=== PATIENT | female | born 1955 | race Caucasian/White ===

== ENCOUNTER → 2020-05-04 10:35 | Outpatient (BNVA) | payer OTHER, SELFPAY | PROVIDERS: PCP Physical Medicine & Rehabilitation; Visit Provider Nurse Practitioner Family | DX: M47.816 Spondylosis without myelopathy or radiculopathy, lumbar region (principal); M51.36 Other intervertebral disc degeneration, lumbar region | CPT/HCPCS: 99202 ==

== ENCOUNTER 2020-05-27 11:29 | Day surgery (SDC) | payer OTHER, SELFPAY ==
[2020-05-26 13:42] VITALS: BMI 32.2
--- NOTE | 2020-05-26 14:05 | HO.ANESPROP2 ---
HPI - Anesthesia Eval Consult details Narrative: 65yo F for Left Medial Branch Block Chronic opioids PMFSH Active Problems Active Problems: All Active Problems (Updated 05/26/20 @ 13:40 by Perri Frankel, RN) Spondylosis of lumbar region without myelopathy or radiculopathy (Acute) DDD (degenerative disc disease), lumbar (Acute) Past Medical History Medical History (Updated 05/26/20 @ 13:40 by Perri Frankel, RN) Asthma COPD (chronic obstructive pulmonary disease) Elevated cholesterol Hepatitis HTN (hypertension) Schizoaffective disorder Smoker Thyroid disease Surgical History Surgical History (Updated 05/26/20 @ 13:41 by Perri Frankel, RN) History of hip surgery Social History Social History (Updated 05/26/20 @ 13:42 by Perri Frankel, RN) Smoking Status: Current every day smoker Tobacco Type: Cigarette Packs Per Day: 1 Cigarettes Per Day: 20.0 Advance Directives Date on File: 05/27/20 Meds Allergies Allergy/AdvReac Type Severity Reaction Status Date / Time succinylcholine AdvReac Severe choline Verified 06/03/20 13:37 estrace deficiency cefaclor [From Ceclor] AdvReac Intermediate hives Verified 06/03/20 13:37 Penicillins AdvReac Intermediate hives Verified 06/03/20 13:37 Sulfa (Sulfonamide AdvReac Intermediate hives Verified 06/03/20 13:37 Antibiotics) Home Medications Medication Instructions Recorded Confirmed Last Taken Type atorvastatin 40 mg tablet 40 mg PO DAILY 05/04/20 06/03/20 Unknown History baclofen 10 mg tablet 10 mg PO QID 05/04/20 06/03/20 Unknown History calcium carbonate 500 mg calcium 500 mg PO DAILY 05/04/20 06/03/20 Unknown History (1,250 mg) tablet cholecalciferol (vitamin D3) 25 25 mcg PO DAILY 05/04/20 06/03/20 Unknown History mcg (1,000 unit) capsule clonazepam 2 mg tablet 2 mg PO TID 05/04/20 06/03/20 Unknown History desvenlafaxine 100 mg 100 mg PO DAILY 05/04/20 06/03/20 Unknown History tablet,extended release 24 hr diclofenac sodium 1 % topical gel 2 g TOPICAL QID 05/04/20 05/04/20 Unknown History diltiazem HCl 240 mg 240 mg PO DAILY 05/04/20 06/03/20 Unknown History capsule,extended release 24 hr ferrous sulfate 325 mg (65 mg 325 mg PO DAILY 05/04/20 06/03/20 Unknown History iron) tablet gabapentin 600 mg tablet 600 mg PO TID 05/04/20 06/03/20 Unknown History levothyroxine 175 mcg capsule 175 mcg PO DAILY 05/04/20 06/03/20 Unknown History loratadine 10 mg capsule 10 mg PO DAILY 05/04/20 06/03/20 Unknown History meclizine 12.5 mg tablet 12.5 mg PO TID 05/04/20 06/03/20 Unknown History meloxicam 15 mg tablet 15 mg PO DAILY 05/04/20 06/03/20 Unknown History mirabegron 25 mg tablet,extended 25 mg PO DAILY 05/04/20 06/03/20 Unknown History release 24 hr multivitamin,tx-minerals 1 cap PO DAILY 05/04/20 06/03/20 Unknown History pantoprazole 40 mg tablet,delayed 40 mg PO DAILY 05/04/20 06/03/20 Unknown History release ropinirole 2 mg tablet 2 mg PO BEDTIME 05/04/20 06/03/20 Unknown History sodium chloride 1 gram tablet 1,000 mg PO DAILY 05/04/20 06/03/20 Unknown History tramadol 50 mg tablet 50 mg PO BID PRN 05/04/20 05/04/20 Unknown History umeclidinium 62.5 mcg/actuation 1 inh INHALATION DAILY 05/04/20 06/03/20 Unknown History blister powder for inhalation zoledronic acid 5 mg/100 mL in IV 05/04/20 06/03/20 Unknown History mannitol 5 %-water intravenous piggybck Exam Exam Date and Time: May 26, 2020 1405 Height,Weight and Vital Signs: Height 5 ft Weight 74.843 kg Assessment and Plan Assessment Anesthesia Assessment: Chart Reviewed
--- NOTE | ~2020-05-27 | FL_ITS ---
EXAMINATION: XR FLUOROSCOPY WITH IMAGES CLINICAL INFORMATION: Medial branch block COMPARISON: None. TECHNIQUE: Fluoroscopy performed by Dr. Hector Ha. Fluoroscopy time: 0.2 minutes DAP: 1.0 mGycm2 Images: 1 FINDINGS: Image demonstrates needle placement adjacent to the left lateral L4 vertebral body. FL/FL guidance in OR IMPRESSION: Fluoroscopic guidance for medial branch block.
[2020-05-27 12:20] VITALS: BP 144/97; PULSE 99; RESP 18; TEMP 36.8; O2SAT 97
[2020-05-27] MEDS: Lactated Ringers 1,000 ML 100 ML IVCONT (12:46)
--- NOTE | 2020-05-27 12:58 | MHC.SHP ---
Pre-Procedural Eval Section A The patient is an INPATIENT: No The History & Physical has been completed within 30 days and I have reviewed it.: No Section B Chief Complaint: spondylosis.disc degeneration Details of Present Illness: as above Relevant Family History (Specify if Yes): No Relevant Social History: None Present Medications: None Medical History: No relevant PMH History of Previous Operations: No relevant previous surgery Allergies: Allergies Allergy/AdvReac Type Severity Reaction Status Date / Time succinylcholine AdvReac Severe choline Verified 05/04/20 11:05 estrace deficiency cefaclor [From Ceclor] AdvReac Intermediate hives Verified 05/04/20 11:04 Penicillins AdvReac Intermediate hives Verified 05/04/20 11:03 Sulfa (Sulfonamide AdvReac Intermediate hives Verified 05/04/20 11:05 Antibiotics) Review of Systems Sugical H&P ROS: Negative: Constitution, Cardiovascular, Respiratory, Neurological, Psychiatric, Hem-Onc, Allergic/Immunologic, Gastrointestinal, Genitourinary, Musculoskeletal, Integumentary, Endocrine and Eyes/Ears/Nose/Throat Exam Surgical H&P Exam: Normal: HEENT, Normal: Heart, Normal: Lungs, Normal: Extremities, Normal: Abdomen, Normal: Skin and Normal: Neurological Plan Diagnosis/Plan: Unchanged I have reviewed the history and physical and performed a pertinent physical examination on my patient. No changes have occurred unless specified.
--- NOTE | 2020-05-27 12:59 | MHC.SHP ---
Pre-Procedural Eval Section B Chief Complaint: spondylosis.disc degeneration Allergies: Allergies Allergy/AdvReac Type Severity Reaction Status Date / Time succinylcholine AdvReac Severe choline Verified 05/04/20 11:05 estrace deficiency cefaclor [From Ceclor] AdvReac Intermediate hives Verified 05/04/20 11:04 Penicillins AdvReac Intermediate hives Verified 05/04/20 11:03 Sulfa (Sulfonamide AdvReac Intermediate hives Verified 05/04/20 11:05 Antibiotics) Plan I have reviewed the history and physical and performed a pertinent physical examination on my patient. No changes have occurred unless specified.
--- NOTE | 2020-05-27 13:46 | PM.OP ---
Brief Operative Note Date of Service: 05/27/20 Pre-op diagnosis: spondylosis lumbar Post-op diagnosis: same Procedure: left MBB l3-l4-dr l5 Surgeon: Hector Ha MD Anesthesia: MAC Estimated blood loss (mL): 3 Condition: stable Disposition: PACU
[2020-05-27 13:50] VITALS: BP 120/70; PULSE 81; RESP 16; TEMP 36.4; O2SAT 98
[2020-05-27 14:05] VITALS: BP 147/86; PULSE 86; RESP 17; TEMP 36.4; O2SAT 99
--- NOTE | 2020-06-01 13:44 | W.PM.OPN ---
Operative Note Operative Note Date of Service: 05/27/20 Narrative: Informed consent was explained to the patient. All questions were explained and answered. The patient was taken inside the operating room where she was positioned prone on the operating table.. The patient was taken inside of the operating room where was positioned prone operating table. Time-out was performed delineating correct site, side, the nature of the procedure, patient's allergy, preoperative antibiotic if needed. All operating room staff was participating in OR time-out procedure. The lower back was prepped with ChloraPrep and draped with sterile towels. Sterilely draped C-arm was brought over the operating field and square picture of, L4-and L5 vertebra and S1 AREA were delineated on the screen. Point of interest were delineated as connection of superior articular process of L4 and L5 vertebra ON THE LEFT with corresponding transverse processes, as well as connection of the sacral alae ON THE LEFT with superior articular process of S1. The projections of the point of interest to the skin were injected with the small amount of local anesthetic lidocaine 2% 1-1.5 cc. After that 22 gauge QP spinal needles were driven to the point of interest in tunnel vision fashion. After needles gently contacted the bone at the point of interests the needle was injected with small amount of bupivacaine 0.5%-1cc . Upon completion of the injections needles were removed and sterile dressings were applied patient was awaken and taken outside of the operating room to recovery room where the patient recovered uneventfully. The patient went home without immediate complications.
== END 2020-05-27 15:25 | disposition home or self-care (01) ==
PROVIDERS: PCP Nurse Practitioner Family; Visit Provider Anesthesiology
PROC: (CPT 64493; principal; 2020-05-27 13:20)
DX: M47.816 Spondylosis without myelopathy or radiculopathy, lumbar region (principal); M51.36 Other intervertebral disc degeneration, lumbar region; J44.9 Chronic obstructive pulmonary disease, unspecified; I10 Essential (primary) hypertension; F17.210 Nicotine dependence, cigarettes, uncomplicated; Z79.899 Other long term (current) drug therapy; Z79.51 Long term (current) use of inhaled steroids; Z88.0 Allergy status to penicillin; Z88.2 Allergy status to sulfonamides; Z88.8 Allergy status to other drugs, medicaments and biological substances
CPT/HCPCS: 64493; 64494; J2250; J3010; Q9967

== ENCOUNTER → 2020-06-03 13:36 | Outpatient (BNVA) | payer OTHER, SELFPAY | PROVIDERS: PCP Internal Medicine; Visit Provider Nurse Practitioner Family | DX: M47.816 Spondylosis without myelopathy or radiculopathy, lumbar region (principal); M51.36 Other intervertebral disc degeneration, lumbar region | CPT/HCPCS: Q3014 ==

== ENCOUNTER 2020-06-24 12:09 | Day surgery (SDC) | payer OTHER, SELFPAY ==
[2020-06-21 11:42] VITALS: BMI 32.2
--- NOTE | 2020-06-23 10:57 | HO.ANESPROP2 ---
Documented by User: Cassie Jenkins 06/23/20 12:23 HPI - Anesthesia Eval Consult details Narrative: 65yo F for Medial Branch Block Last Medial Branch Block 05/2020 with TIVA *Succinylcholine* PMFSH Active Problems Active Problems: All Active Problems (Updated 06/21/20 @ 11:42 by Zoe Loera) Spondylosis of lumbar region without myelopathy or radiculopathy (Acute) DDD (degenerative disc disease), lumbar (Acute) Past Medical History Medical History (Updated 06/21/20 @ 11:42 by Zoe Loera) Anemia Asthma COPD (chronic obstructive pulmonary disease) Elevated cholesterol Fracture of left femur GERD (gastroesophageal reflux disease) Hepatitis HTN (hypertension) Hyponatremia Schizoaffective disorder Smoker Thyroid disease Vertigo Surgical History Surgical History (Updated 06/21/20 @ 11:34 by Zoe Loera) History of appendectomy History of esophagogastroduodenoscopy (EGD) History of hip surgery History of pubovaginal sling Hx of colonoscopy Hx of elbow surgery Social History Social History (Updated 06/21/20 @ 11:35 by Zeo Loera) Smoking Status: Current every day smoker Tobacco Type: Cigarette Cigarettes Per Day: 10 Years Smoked: 43 Smoked in Last 30 Days: Yes Patient Interested in Nicotine Replacement: Yes Patient Given Instructions on How to Stop Smoking: Yes Date Education Initiated: 06/21/20 Use of substances other than those prescribed or required for medical reasons: No Advance Directives: Yes (on file) Advance Directives Information Provided: Yes (yes per previous record) Advance Directives on File: Yes (05/27/2020) Advance Directives Date on File: 05/27/20 Meds Allergies Allergy/AdvReac Type Severity Reaction Status Date / Time succinylcholine AdvReac Severe choline Verified 06/03/20 13:37 estrace deficiency cefaclor [From Ceclor] AdvReac Intermediate hives Verified 06/03/20 13:37 Penicillins AdvReac Intermediate hives Verified 06/03/20 13:37 Sulfa (Sulfonamide AdvReac Intermediate hives Verified 06/03/20 13:37 Antibiotics) Home Medications Medication Instructions Recorded Confirmed Last Taken Type atorvastatin 40 mg tablet 40 mg PO DAILY 05/04/20 06/21/20 Unknown History baclofen 10 mg tablet 10 mg PO QID 05/04/20 06/21/20 Unknown History calcium carbonate 500 mg calcium 500 mg PO DAILY 05/04/20 06/21/20 Unknown History (1,250 mg) tablet cholecalciferol (vitamin D3) 25 25 mcg PO DAILY 05/04/20 06/21/20 Unknown History mcg (1,000 unit) capsule clonazepam 2 mg tablet 2 mg PO TID 05/04/20 06/21/20 06/24/20 History desvenlafaxine 100 mg 100 mg PO DAILY 05/04/20 06/21/20 06/24/20 History tablet,extended release 24 hr diclofenac sodium 1 % topical gel 2 g TOPICAL QID 05/04/20 06/21/20 Unknown History diltiazem HCl 240 mg 240 mg PO DAILY 05/04/20 06/21/20 06/24/20 History capsule,extended release 24 hr ferrous sulfate 325 mg (65 mg 325 mg PO DAILY 05/04/20 06/21/20 Unknown History iron) tablet gabapentin 600 mg tablet 600 mg PO TID 05/04/20 06/21/20 06/24/20 History levothyroxine 175 mcg capsule 175 mcg PO DAILY 05/04/20 06/21/20 06/24/20 History loratadine 10 mg capsule 10 mg PO DAILY 05/04/20 06/21/20 06/24/20 History meclizine 12.5 mg tablet 12.5 mg PO TID PRN 05/04/20 06/21/20 Unknown History meloxicam 15 mg tablet 15 mg PO DAILY 05/04/20 06/21/20 Unknown History mirabegron 25 mg tablet,extended 25 mg PO DAILY 05/04/20 06/21/20 Unknown History release 24 hr multivitamin,tx-minerals 1 cap PO DAILY 05/04/20 06/21/20 Unknown History pantoprazole 40 mg tablet,delayed 40 mg PO DAILY 05/04/20 06/21/20 06/24/20 History release ropinirole 2 mg tablet 2 mg PO BEDTIME 05/04/20 06/21/20 Unknown History sodium chloride 1 gram tablet 1,000 mg PO DAILY 05/04/20 06/21/20 Unknown History tramadol 50 mg tablet 50 mg PO BID PRN 05/04/20 06/21/20 Unknown History umeclidinium 62.5 mcg/actuation 1 inh INHALATION DAILY 05/04/20 06/21/20 Unknown History blister powder for inhalation varenicline [Chantix Continuing 1 tab PO BID 06/21/20 06/21/20 06/24/20 History Month Box] Exam Exam Date and Time: June 23, 2020 1057 Height,Weight and Vital Signs: Height 5 ft Weight 74.843 kg Assessment and Plan Assessment Anesthesia Assessment: Chart Reviewed Documented by User: Scar Osborne MD 06/24/20 14:20 HPI - Anesthesia Eval Consult details Narrative: Pseudocholinesterase deficiency PMFSH Past Medical History Medical History (Updated 06/21/20 @ 11:42 by Zoe Loera) Anemia Asthma COPD (chronic obstructive pulmonary disease) Elevated cholesterol Fracture of left femur GERD (gastroesophageal reflux disease) Hepatitis HTN (hypertension) Hyponatremia Schizoaffective disorder Smoker Thyroid disease Vertigo Surgical History Surgical History (Updated 06/21/20 @ 11:34 by Zoe Loera) History of appendectomy History of esophagogastroduodenoscopy (EGD) History of hip surgery History of pubovaginal sling Hx of colonoscopy Hx of elbow surgery Social History Social History (Updated 06/21/20 @ 11:35 by Zoe Loera) Smoking Status: Current every day smoker Tobacco Type: Cigarette Cigarettes Per Day: 10 Years Smoked: 43 Smoked in Last 30 Days: Yes Patient Interested in Nicotine Replacement: Yes Patient Given Instructions on How to Stop Smoking: Yes Date Education Initiated: 06/21/20 Use of substances other than those prescribed or required for medical reasons: No Advance Directives: Yes (on file) Advance Directives Information Provided: Yes (yes per previous record) Advance Directives on File: Yes (05/27/2020) Advance Directives Date on File: 05/27/20 Meds Allergies Allergy/AdvReac Type Severity Reaction Status Date / Time succinylcholine AdvReac Severe choline Verified 06/03/20 13:37 estrace deficiency cefaclor [From Ceclor] AdvReac Intermediate hives Verified 06/03/20 13:37 Penicillins AdvReac Intermediate hives Verified 06/03/20 13:37 Sulfa (Sulfonamide AdvReac Intermediate hives Verified 06/03/20 13:37 Antibiotics) Home Medications Medication Instructions Recorded Confirmed Last Taken Type atorvastatin 40 mg tablet 40 mg PO DAILY 05/04/20 06/21/20 Unknown History baclofen 10 mg tablet 10 mg PO QID 05/04/20 06/21/20 Unknown History calcium carbonate 500 mg calcium 500 mg PO DAILY 05/04/20 06/21/20 Unknown History (1,250 mg) tablet cholecalciferol (vitamin D3) 25 25 mcg PO DAILY 05/04/20 06/21/20 Unknown History mcg (1,000 unit) capsule clonazepam 2 mg tablet 2 mg PO TID 05/04/20 06/21/20 06/24/20 History desvenlafaxine 100 mg 100 mg PO DAILY 05/04/20 06/21/20 06/24/20 History tablet,extended release 24 hr diclofenac sodium 1 % topical gel 2 g TOPICAL QID 05/04/20 06/21/20 Unknown History diltiazem HCl 240 mg 240 mg PO DAILY 05/04/20 06/21/20 06/24/20 History capsule,extended release 24 hr ferrous sulfate 325 mg (65 mg 325 mg PO DAILY 05/04/20 06/21/20 Unknown History iron) tablet gabapentin 600 mg tablet 600 mg PO TID 05/04/20 06/21/20 06/24/20 History levothyroxine 175 mcg capsule 175 mcg PO DAILY 05/04/20 06/21/20 06/24/20 History loratadine 10 mg capsule 10 mg PO DAILY 05/04/20 06/21/20 06/24/20 History meclizine 12.5 mg tablet 12.5 mg PO TID PRN 05/04/20 06/21/20 Unknown History meloxicam 15 mg tablet 15 mg PO DAILY 05/04/20 06/21/20 Unknown History mirabegron 25 mg tablet,extended 25 mg PO DAILY 05/04/20 06/21/20 Unknown History release 24 hr multivitamin,tx-minerals 1 cap PO DAILY 05/04/20 06/21/20 Unknown History pantoprazole 40 mg tablet,delayed 40 mg PO DAILY 05/04/20 06/21/20 06/24/20 History release ropinirole 2 mg tablet 2 mg PO BEDTIME 05/04/20 06/21/20 Unknown History sodium chloride 1 gram tablet 1,000 mg PO DAILY 05/04/20 06/21/20 Unknown History tramadol 50 mg tablet 50 mg PO BID PRN 05/04/20 06/21/20 Unknown History umeclidinium 62.5 mcg/actuation 1 inh INHALATION DAILY 05/04/20 06/21/20 Unknown History blister powder for inhalation varenicline [Chantix Continuing 1 tab PO BID 06/21/20 06/21/20 06/24/20 History Month Box] Exam Airway Mallampati Class: II TM Dist: >3cm Neck ROM: Full Denture: Upper and Lower Heart: RRR Lungs: NL Assessment and Plan Assessment Anesthesia Assessment: Anesthesia Plan Discussed and Chart Reviewed Final Anesthetic Review NPO: Yes ASA Class: III Final Preanesthetic Review: No Changes in Pt Med Stat, Meds/Allgs Chart Reviewed, Consent Obtained/Reviewed and Anes Risks/Benef Reviewed Patient Risk: Intermediate Procedure Risk: Low Anesthetic Plan Anesthetic Plan: MAC: Disposition: Standard PACU
--- NOTE | ~2020-06-24 | FL_ITS ---
EXAMINATION: XR FLUOROSCOPY WITH IMAGES CLINICAL INFORMATION: L3, L4 and L5 medial branch blocks COMPARISON: Fluoroscopy 05/27/2020 TECHNIQUE: Fluoroscopy performed by Dr.Yuri Ha. Fluoroscopy time: 0.3 minutes DAP: 3.45 mGycm2 Images: 3 FINDINGS: There are 3 digital images obtained under fluoroscopy with needle positioned adjacent to the left L5 and left L4 pedicles with contrast opacifying surrounding soft tissues. The rest of the visualized vertebral bodies are normal. The SI joints are symmetrical and normal. FL/FL guidance in OR IMPRESSION: Fluoroscopy guidance was provided to Dr. Ha for medial branch block.
[2020-06-24 13:07] VITALS: BP 139/86; PULSE 79; RESP 16; TEMP 36.4; O2SAT 95
--- NOTE | 2020-06-24 14:02 | MHC.SHP ---
Pre-Procedural Eval Section A The patient is an INPATIENT: No Changes since office visit: Yes Patient answered all questions The History & Physical has been completed within 30 days and I have reviewed it.: No Section B Chief Complaint: spondylosis, Details of Present Illness: as above Relevant Family History (Specify if Yes): No Relevant Social History: None Present Medications: see Short Stay Collaborative assessment Medical History: No relevant PMH History of Previous Operations: No relevant previous surgery Allergies: Allergies Allergy/AdvReac Type Severity Reaction Status Date / Time succinylcholine AdvReac Severe choline Verified 06/03/20 13:37 estrace deficiency cefaclor [From Ceclor] AdvReac Intermediate hives Verified 06/03/20 13:37 Penicillins AdvReac Intermediate hives Verified 06/03/20 13:37 Sulfa (Sulfonamide AdvReac Intermediate hives Verified 06/03/20 13:37 Antibiotics) Review of Systems Sugical H&P ROS: Negative: Constitution, Cardiovascular, Respiratory, Neurological, Psychiatric, Hem-Onc, Allergic/Immunologic, Gastrointestinal, Genitourinary, Musculoskeletal, Integumentary, Endocrine and Eyes/Ears/Nose/Throat Exam Surgical H&P Exam: Not Evaluated: HEENT, Not Evaluated: Heart, Not Evaluated: Lungs, Not Evaluated: Extremities, Not Evaluated: Abdomen, Not Evaluated: Skin and Not Evaluated: Neurological Plan Diagnosis/Plan: Unchanged I have reviewed the history and physical and performed a pertinent physical examination on my patient. No changes have occurred unless specified.
[2020-06-24] MEDS: Lactated Ringers 1,000 ML 100 ML IVCONT (14:05)
[2020-06-24 14:46] VITALS: BP 157/86; PULSE 74; RESP 14; TEMP 36.1; O2SAT 98
--- NOTE | 2020-06-24 14:49 | PM.OP ---
Brief Operative Note Date of Service: 06/24/20 Pre-op diagnosis: Spondylosis lumbar Post-op diagnosis: same Procedure: L3-L4 dorsal ramus L5 medial branch nerve on the left therapeutic Implants: None Surgeon: Hector Ha MD Anesthesia: MAC Estimated blood loss (mL): 0 Condition: stable Disposition: PACU
[2020-06-24 15:01] VITALS: BP 173/90; PULSE 80; RESP 16; TEMP 36.1; O2SAT 98
--- NOTE | 2020-06-24 16:28 | W.PM.OPN ---
Operative Note Operative Note Date of Service: 05/27/20 Narrative: Informed consent was explained to the patient. All questions were explained and answered. The patient was taken inside the operating room where she was positioned prone on the operating table.. The patient was taken inside of the operating room where was positioned prone operating table. Time-out was performed delineating correct site, side, the nature of the procedure, patient's allergy, preoperative antibiotic if needed. All operating room staff was participating in OR time-out procedure. The lower back was prepped with ChloraPrep and draped with sterile towels. Sterilely draped C-arm was brought over the operating field and square picture of, L4-and L5 vertebra and S1 AREA were delineated on the screen. Point of interest were delineated as connection of superior articular process of L4 and L5 vertebra ON THE LEFT with corresponding transverse processes, as well as connection of the sacral alae ON THE LEFT with superior articular process of S1. The projections of the point of interest to the skin were injected with the small amount of local anesthetic lidocaine 2% 1-1.5 cc. After that 22 gauge QP spinal needles were driven to the point of interest in tunnel vision fashion. After needles gently contacted the bone at the point of interests the needle was injected with small amount of bupivacaine 0.5%-1cc mixed with Kenalog, total dose of Kenalog was 40 mg.. Upon completion of the injections needles were removed and sterile dressings were applied patient was awaken and taken outside of the operating room to recovery room where the patient recovered uneventfully. The patient went home without immediate complications.
== END 2020-06-24 15:29 | disposition home or self-care (01) ==
PROVIDERS: PCP Nurse Practitioner Family; Visit Provider Anesthesiology
PROC: (CPT 64493; principal; 2020-06-24 14:00)
DX: M47.816 Spondylosis without myelopathy or radiculopathy, lumbar region (principal); M51.36 Other intervertebral disc degeneration, lumbar region; J44.9 Chronic obstructive pulmonary disease, unspecified; D64.9 Anemia, unspecified; I10 Essential (primary) hypertension; Z79.899 Other long term (current) drug therapy; Z88.0 Allergy status to penicillin; Z88.2 Allergy status to sulfonamides; Z88.8 Allergy status to other drugs, medicaments and biological substances; F17.210 Nicotine dependence, cigarettes, uncomplicated
CPT/HCPCS: 64493; 64494; J2250; J3010; J3300; Q9967

== ENCOUNTER → 2020-07-27 14:00 | Outpatient (BNVA) | payer OTHER, SELFPAY | PROVIDERS: PCP Nurse Practitioner Family; Visit Provider Anesthesiology | DX: M47.816 Spondylosis without myelopathy or radiculopathy, lumbar region (principal); M51.36 Other intervertebral disc degeneration, lumbar region; Z79.899 Other long term (current) drug therapy | CPT/HCPCS: Q3014 ==

== ENCOUNTER → 2020-12-12 14:58 | Outpatient (BNVA) | payer OTHER, SELFPAY | PROVIDERS: PCP Nurse Practitioner Family; Visit Provider Anesthesiology | DX: M47.816 Spondylosis without myelopathy or radiculopathy, lumbar region (principal); M51.36 Other intervertebral disc degeneration, lumbar region; Z79.899 Other long term (current) drug therapy | CPT/HCPCS: 99212 ==

== ENCOUNTER 2021-02-23 12:04 | Day surgery (SDC) | payer OTHER, SELFPAY ==
[2021-02-16 10:30] VITALS: BMI 30.8
--- NOTE | ~2021-02-23 | FL_ITS ---
EXAMINATION: XR FLUOROSCOPY WITH IMAGES CLINICAL INFORMATION: Medial branch block COMPARISON: Previous exam June 2020 TECHNIQUE: Fluoroscopy performed by Dr. Hector Ha. Fluoroscopy time: 0.3 minutes DAP: 5 Gy-cm2 Images: 4 FINDINGS: Images demonstrate needle placement and contrast injection adjacent to the left lateral L2-L5 pedicles for medial branch block FL/FL guidance in OR IMPRESSION: Fluoroscopy guidance for medial branch block.
--- NOTE | 2021-02-23 12:08 | MHC.SHP ---
Pre-Procedural Eval Section A Date of Service: 02/23/21 The patient is an INPATIENT: No Changes since office visit: Yes Patient answered all questions The History & Physical has been completed within 30 days and I have reviewed it.: No Section B Chief Complaint: Spondylosis lumbar region Details of Present Illness: as above Relevant Family History (Specify if Yes): No Relevant Social History: None Present Medications: see Short Stay Collaborative assessment Medical History: No relevant PMH History of Previous Operations: No relevant previous surgery Allergies: Allergies Allergy/AdvReac Type Severity Reaction Status Date / Time succinylcholine AdvReac Severe choline Verified 02/16/21 10:03 estrace deficiency cefaclor [From Ceclor] AdvReac Intermediate hives Verified 02/16/21 10:03 Penicillins AdvReac Intermediate hives Verified 02/16/21 10:03 Sulfa (Sulfonamide AdvReac Intermediate hives Verified 02/16/21 10:03 Antibiotics) Review of Systems Sugical H&P ROS: Negative: Constitution, Cardiovascular, Respiratory, Neurological, Psychiatric, Hem-Onc, Allergic/Immunologic, Gastrointestinal, Genitourinary, Musculoskeletal, Integumentary, Endocrine and Eyes/Ears/Nose/Throat Exam Surgical H&P Exam: Normal: HEENT, Normal: Heart, Normal: Lungs, Normal: Extremities, Normal: Abdomen, Normal: Skin and Normal: Neurological Plan Diagnosis/Plan: Unchanged I have reviewed the history and physical and performed a pertinent physical examination on my patient. No changes have occurred unless specified.
[2021-02-23 12:27] VITALS: BP 135/74; PULSE 76; RESP 16; TEMP 36.1; O2SAT 95
--- NOTE | 2021-02-23 12:49 | P.HPSUR_ITS ---
Pre-Procedural Eval Section A Date of Service: 02/23/21 The patient is an INPATIENT: No Changes since office visit: Yes Patient answered all questions The History & Physical has been completed within 30 days and I have reviewed it.: No Section B Chief Complaint: Spondylosis lumbar region Details of Present Illness: As above Relevant Family History (Specify if Yes): No Relevant Social History: None Present Medications: None Medical History: No relevant PMH History of Previous Operations: No relevant previous surgery Allergies: Allergies Allergy/AdvReac Type Severity Reaction Status Date / Time succinylcholine AdvReac Severe choline Verified 02/16/21 10:03 estrace deficiency cefaclor [From Ceclor] AdvReac Intermediate hives Verified 02/16/21 10:03 Penicillins AdvReac Intermediate hives Verified 02/16/21 10:03 Sulfa (Sulfonamide AdvReac Intermediate hives Verified 02/16/21 10:03 Antibiotics) Review of Systems Sugical H&P ROS: Negative: Constitution, Cardiovascular, Respiratory, Neurological, Psychiatric, Hem-Onc, Allergic/Immunologic, Gastrointestinal, Genitourinary, Musculoskeletal, Integumentary, Endocrine and Eyes/Ears/Nose/ Throat Exam Surgical H&P Exam: Normal: HEENT, Normal: Heart, Normal: Lungs, Normal: Extremities, Normal: Abdomen, Normal: Skin and Normal: Neurological Plan Diagnosis/Plan: Unchanged I have reviewed the history and physical and performed a pertinent physical examination on my patient. No changes have occurred unless specified.
--- NOTE | 2021-02-23 12:49 | W.PM.OPN ---
Operative Note Operative Note Date of Service: 02/23/21 Narrative: The patient came to the operating room to perform therapeutic unilateral left medial branch blocks L2-L3 L4 dorsal ramus L5. After obtaining informed consent the patient was brought to the OR where she was positioned prone on the operating table. Time out was performed delineating correct site and side of the procedure. the lower back of the patient was prepped and draped with DuraPrep and draped with sterile utility towels. C arm was brought over the operating field and square picture of the L3-L4 and L5 vertebrae were demonstrated on the screen . tilting machine ipsilateral to the left the clear picture of point of interests was delineated which was chosen as the connection of left superior articular process of L3-L4 and L5 vertebra with corresponding left transverse process as well as connection of left superior articular process of S1 with the sacral alae on the left. The projection of the point of interest to the skin was injected with small amount of lidocaine 2%. After that 22 gauge 3-1/2 inch needle was sequentially inserted through the skin wheals and was driven to the point of interest in tunnel vision fashion. When needle gently contacted the bone small amount of the contrast was injected demonstrating no intravascular and no intrathecal uptake of the contrast. After that small amount of Marcaine 0.5% mixed with Kenalog was injected into each needle position. Upon completion of the injections needle was withdrawn sterile dressing was applied. The patient tolerated procedure well. She was taking outside of the operating room to recovery room she where she recovered uneventfully. She went home without immediate complications.
--- NOTE | 2021-02-23 12:51 | HO.ANESPROP2 ---
[facility] Active Problems Active Problems: All Active Problems (Updated 02/16/21 @ 10:36 by Mamie Holloway, RN) Spondylosis of lumbar region without myelopathy or radiculopathy (Acute) DDD (degenerative disc disease), lumbar (Acute) Past Medical History Medical History (Updated 02/16/21 @ 10:36 by Mamie Holloway, RN) Anemia Asthma Back pain COPD (chronic obstructive pulmonary disease) COVID-19 vaccine series completed Elevated cholesterol Fracture of left femur GERD (gastroesophageal reflux disease) Hepatitis HTN (hypertension) Hyponatremia Schizoaffective disorder Smoker Thyroid disease Vertigo Family History Family history of problems with anesthesia: Yes (Pseudocholinesterase deficiency) Surgical History Surgical History (Updated 02/16/21 @ 10:38 by Mamie Holloway, RN) History of appendectomy History of esophagogastroduodenoscopy (EGD) History of hip surgery History of pubovaginal sling Hx of colonoscopy Hx of elbow surgery S/P hardware removal History of Problems with Anesthesia: Yes (Pseudocholinesterase deficiency) Social History Social History (Updated 06/21/20 @ 11:35 by Zoe Loera RN) 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 Are you a primary home health care worker to a significant other at home: No Do you presently have visiting nurse or other home services: Yes (FRIT MIXER) Patient Tobacco Use Status: Current everyday Tobacco user Tobacco use type: Cigarette Cigarette Packs Per Day: 0.25 Cigarettes Per Day: 5.0 Years Smoked: 44 Smoked in Last 30 Days: Yes Patient Interested in Nicotine Replacement: Yes (Has Nicotine patch) Patient Given Instructions on How to Stop Smoking: Yes (mailed) Date Education Initiated: 02/16/21 Second Hand Smoke Exposure: No Use of substances other than those prescribed or required for medical reasons: No Have you been hit, kicked, punched, or otherwise hurt by someone within the past year? If so, by whom?: No Advance Directives: Yes Advance Directives Information Provided: No Advance Directives on File: Yes Advance Directives Date on File: 05/27/20 Recently lost weight without trying: No Eating poorly because of decreased appetite: No Nutrition Risks: No Nutritional Risk Meds Allergies Allergy/AdvReac Type Severity Reaction Status Date / Time succinylcholine AdvReac Severe choline Verified 02/16/21 10:03 estrace deficiency cefaclor [From Ceclor] AdvReac Intermediate hives Verified 02/16/21 10:03 Penicillins AdvReac Intermediate hives Verified 02/16/21 10:03 Sulfa (Sulfonamide AdvReac Intermediate hives Verified 02/16/21 10:03 Antibiotics) Home Medications Medication Instructions Recorded Confirmed Last Taken Type atorvastatin 40 mg tablet 40 mg PO DAILY 05/04/20 02/16/21 Unknown History clonazepam 2 mg tablet 1 mg PO BID 05/04/20 02/16/21 02/23/21 History desvenlafaxine 100 mg 100 mg PO DAILY 05/04/20 02/16/21 06/24/20 History tablet,extended release 24 hr diclofenac sodium 1 % topical gel 2 g TOPICAL QID PRN 05/04/20 02/16/21 Unknown History (Arthritis Pain (diclofenac)) diltiazem HCl 240 mg 240 mg PO DAILY 05/04/20 02/16/21 02/23/21 History capsule,extended release 24 hr gabapentin 600 mg tablet 600 mg PO TID 05/04/20 02/16/21 02/23/21 History loratadine 10 mg capsule 10 mg PO DAILY 05/04/20 02/16/21 06/24/20 History meclizine 12.5 mg tablet 12.5 mg PO TID PRN 05/04/20 02/16/21 Unknown History meloxicam 15 mg tablet 15 mg PO DAILY 05/04/20 02/16/21 Unknown History mirabegron 25 mg tablet,extended 25 mg PO DAILY 05/04/20 02/16/21 Unknown History release 24 hr pantoprazole 40 mg tablet,delayed 40 mg PO DAILY 05/04/20 02/16/21 02/23/21 History release (Protonix) ropinirole 2 mg tablet 2 mg PO BEDTIME 05/04/20 02/16/21 Unknown History sodium chloride 1 gram tablet 1,000 mg PO DAILY 05/04/20 06/21/20 Unknown History umeclidinium 62.5 mcg/actuation 1 inh INHALATION DAILY 05/04/20 02/16/21 Unknown History blister powder for inhalation (Incruse Ellipta) buspirone 30 mg tablet 30 mg PO BID 12/12/20 02/16/21 02/23/21 History albuterol sulfate 90 mcg/actuation 2 puff INHALATION Q4-6H PRN 02/16/21 02/16/21 02/23/21 History aerosol inhaler (ProAir HFA) amitriptyline 100 mg tablet 1 tab PO BEDTIME 02/16/21 02/16/21 Unknown History aripiprazole 20 mg tablet 1 tab PO QAM 02/16/21 02/16/21 Unknown History levothyroxine 150 mcg tablet 1 tab PO DAILY 02/16/21 02/16/21 Unknown History nicotine 21 mg/24 hr daily 1 patch TOPICAL DAILY 02/16/21 02/16/21 Unknown History transdermal patch Exam Exam Date and Time: February 23, 2021 1251 Height,Weight and Vital Signs: Height 5 ft Weight 71.668 kg Last Vital Signs Temp 96.9 F 02/23/21 12:27 Pulse 76 02/23/21 12:27 Resp 16 02/23/21 12:27 BP 135/74 02/23/21 12:27 Pulse Ox 95 02/23/21 12:27 Airway Mallampati Class: II TM Dist: >3cm Neck ROM: Full Denture: Upper and Lower Heart: RRR Lungs: CTAB Assessment and Plan Assessment Anesthesia Assessment: Anesthesia Plan Discussed and Chart Reviewed Final Anesthetic Review Family History of Problems with Anesthesia: Yes (Pseudocholinesterase deficiency) History of Problems with Anesthesia: Yes (Pseudocholinesterase deficiency) NPO: Yes ASA Class: III Final Preanesthetic Review: No Changes in Pt Med Stat, Meds/Allgs Chart Reviewed, Consent Obtained/Reviewed and Anes Risks/Benef Reviewed Patient Risk: Intermediate Procedure Risk: Low Assessment/Block/Sedation in SS: Assess/Block/Sedation-SS Anesthetic Plan Anesthetic Plan: MAC: Disposition: Standard PACU
[2021-02-23] MEDS: Lactated Ringers 1,000 ML 100 ML IVCONT (13:15)
--- NOTE | 2021-02-23 13:49 | P.BOP_ITS ---
Brief Operative Note Date of Service: 02/23/21 Pre-op diagnosis: Spondylosis lumbar spine Post-op diagnosis: same Procedure: Left L2 L3-L4 L5 therapeutic MBB Implants: None Surgeon: Hector aH MD Anesthesia: MAC Was an Director Public Service used for this Procedure?: No Estimated blood loss (mL): 2 Pathology: none sent Condition: stable Disposition: PACU
[2021-02-23 13:55] VITALS: BP 111/61; PULSE 67; RESP 16; TEMP 36.3; O2SAT 97
[2021-02-23 14:10] VITALS: BP 117/72; PULSE 70; RESP 18; TEMP 36.3; O2SAT 97
== END 2021-02-23 15:07 | disposition home or self-care (01) ==
PROVIDERS: PCP Nurse Practitioner Family; Visit Provider Anesthesiology
PROC: (CPT 64493; principal; 2021-02-23 13:40)
DX: M47.816 Spondylosis without myelopathy or radiculopathy, lumbar region (principal); M54.50 Low back pain, unspecified; M51.36 Other intervertebral disc degeneration, lumbar region; R25.2 Cramp and spasm; Z87.311 Personal history of (healed) other pathological fracture; D64.9 Anemia, unspecified; J44.9 Chronic obstructive pulmonary disease, unspecified; I10 Essential (primary) hypertension; Z88.0 Allergy status to penicillin; Z88.2 Allergy status to sulfonamides; Z88.8 Allergy status to other drugs, medicaments and biological substances; F17.210 Nicotine dependence, cigarettes, uncomplicated
CPT/HCPCS: 64493; 64494; 64495; J2250; J3010; J3300; Q9967

== ENCOUNTER → 2021-03-29 10:51 | Outpatient (BNVA) | payer OTHER, SELFPAY | PROVIDERS: PCP Nurse Practitioner Family; Visit Provider Anesthesiology | DX: M47.816 Spondylosis without myelopathy or radiculopathy, lumbar region (principal); M51.36 Other intervertebral disc degeneration, lumbar region | CPT/HCPCS: Q3014 ==

== ENCOUNTER → 2021-08-01 14:34 | Outpatient (BNVA) | payer OTHER, SELFPAY | PROVIDERS: PCP Nurse Practitioner Family; Visit Provider Nurse Practitioner Family | DX: M47.816 Spondylosis without myelopathy or radiculopathy, lumbar region (principal); M51.36 Other intervertebral disc degeneration, lumbar region | CPT/HCPCS: 99212 ==

== ENCOUNTER → 2021-10-05 09:17 | Outpatient (BNVA) | payer OTHER, SELFPAY | PROVIDERS: PCP Nurse Practitioner Family; Visit Provider Anesthesiology | DX: M47.816 Spondylosis without myelopathy or radiculopathy, lumbar region (principal); M51.36 Other intervertebral disc degeneration, lumbar region | CPT/HCPCS: 99212 ==

== ENCOUNTER → 2021-10-12 08:33 | Outpatient (BNVA) | payer OTHER, SELFPAY | PROVIDERS: PCP Nurse Practitioner Family; Visit Provider Internal Medicine Rheumatology | DX: M81.0 Age-related osteoporosis without current pathological fracture (principal); M25.50 Pain in unspecified joint; M19.071 Primary osteoarthritis, right ankle and foot; M19.072 Primary osteoarthritis, left ankle and foot; M47.816 Spondylosis without myelopathy or radiculopathy, lumbar region; Z87.81 Personal history of (healed) traumatic fracture | CPT/HCPCS: 99202 ==

== ENCOUNTER 2021-10-19 10:07 | Day surgery (SDC) | payer OTHER, SELFPAY ==
--- NOTE | 2021-10-18 09:32 | HO.ANESPROP2 ---
Documented by User: Cassie Jenkins NP 10/18/21 09:36 HPI - Anesthesia Eval Consult details Narrative: 66yo F for Right L2-[id number] L5 Diagnostic Medial Branch Block s/p same 02/2021 with MAC PMFSH Active Problems Active Problems: All Active Problems (Updated 10/12/21 @ 10:22 by Ihsan Carlos MD) Osteoarthritis of feet, bilateral (Acute) Osteoporosis (Acute) History of fracture of femur (Acute) Polyarthralgia (Acute) Spondylosis of lumbar region without myelopathy or radiculopathy (Acute) DDD (degenerative disc disease), lumbar (Acute) Past Medical History Medical History Anemia Asthma Back pain COPD (chronic obstructive pulmonary disease) COVID-19 vaccine series completed Elevated cholesterol Fracture of left femur GERD (gastroesophageal reflux disease) Hepatitis HTN (hypertension) Hyponatremia Schizoaffective disorder Smoker Thyroid disease Vertigo Family History Family history of problems with anesthesia: Yes Surgical History Surgical History History of appendectomy History of esophagogastroduodenoscopy (EGD) History of hip surgery History of pubovaginal sling Hx of colonoscopy Hx of elbow surgery S/P hardware removal History of Problems with Anesthesia: Yes Social History Social History 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 Are you a primary ocular care technologist to a significant other at home: No Do you presently have visiting nurse or other home services: Yes (POST PARTUM NURSE) Patient Tobacco Use Status: Current everyday Tobacco user Tobacco use type: Cigarette Cigarette Packs Per Day: 0.25 Cigarettes Per Day: 8 Years Smoked: 44 On Nicotene patch and lozengers to quit smoking started 2 weeks ago Second Hand Smoke Exposure: No Use of substances other than those prescribed or required for medical reasons: No Are you DNR?: No Advance Directives: Yes Advance Directives on File: Yes Advance Directives Date on File: 05/27/20 Meds Allergies Allergy/AdvReac Type Severity Reaction Status Date / Time succinylcholine AdvReac Severe choline Verified 10/12/21 08:41 estrace deficiency cefaclor [From Ceclor] AdvReac Intermediate hives Verified 10/12/21 08:41 Penicillins AdvReac Intermediate hives Verified 10/12/21 08:41 Sulfa (Sulfonamide AdvReac Intermediate hives Verified 10/12/21 08:41 Antibiotics) Tetanus Vaccines and Toxoid AdvReac Hemiparesis Verified 10/19/21 10:55 Home Medications Medication Instructions Recorded Confirmed Last Taken Type atorvastatin 40 mg tablet 40 mg PO DAILY 05/04/20 08/01/21 Unknown History clonazepam 2 mg tablet 1 mg PO BID 05/04/20 10/12/21 02/23/21 History diltiazem HCl 240 mg 240 mg PO DAILY 05/04/20 10/12/21 02/23/21 History capsule,extended release 24 hr loratadine 10 mg capsule 10 mg PO DAILY 05/04/20 10/12/21 06/24/20 History meclizine 12.5 mg tablet 12.5 mg PO TID PRN Vertigo 05/04/20 10/12/21 Unknown History meloxicam 15 mg tablet 15 mg PO DAILY 05/04/20 10/12/21 Unknown History mirabegron 25 mg tablet,extended 25 mg PO DAILY 05/04/20 10/12/21 Unknown History release 24 hr pantoprazole 40 mg tablet,delayed 40 mg PO DAILY 05/04/20 10/12/21 02/23/21 History release (Protonix) ropinirole 2 mg tablet 2 mg PO BEDTIME 05/04/20 10/12/21 Unknown History sodium chloride 1 gram tablet 1,000 mg PO DAILY 05/04/20 10/12/21 Unknown History umeclidinium 62.5 mcg/actuation 1 inh inhalation DAILY 05/04/20 10/12/21 Unknown History blister powder for inhalation (Incruse Ellipta) buspirone 30 mg tablet 30 mg PO BID 12/12/20 10/12/21 02/23/21 History albuterol sulfate 90 mcg/actuation 2 puff inhalation Q4-6H PRN 02/16/21 10/12/21 02/23/21 History aerosol inhaler (ProAir HFA) Wheezing aspirin 81 mg tablet,delayed 81 mg PO DAILY 10/05/21 10/12/21 Unknown History release fluticasone propionate 50 1 spray intranasal BID 10/05/21 10/12/21 Unknown History mcg/actuation nasal spray,suspension nicotine (polacrilex) 2 mg buccal mg sublingual 10/05/21 10/12/21 Unknown History mini lozenge amitriptyline 100 mg tablet 100 mg PO BEDTIME 10/12/21 10/12/21 Unknown History aripiprazole 20 mg tablet 20 mg PO QAM 10/12/21 10/12/21 Unknown History duloxetine 60 mg capsule,delayed 60 mg PO QAM 10/12/21 10/12/21 Unknown History release gabapentin 600 mg tablet 600 mg PO TID 10/12/21 10/12/21 02/23/21 History levothyroxine 150 mcg tablet 150 mcg PO DAILY 10/12/21 10/12/21 Unknown History ropinirole 0.5 mg tablet 0.5 mg PO BEDTIME 10/12/21 10/12/21 Unknown History Exam Exam Date and Time: October 18, 2021 0932 Assessment and Plan Assessment Anesthesia Assessment: Chart Reviewed Final Anesthetic Review Family History of Problems with Anesthesia: Yes History of Problems with Anesthesia: Yes Documented by User: Yaneth Bernabe MD 10/19/21 11:40 PMF Past Medical History Medical History Anemia Asthma Back pain COPD (chronic obstructive pulmonary disease) COVID-19 vaccine series completed Elevated cholesterol Fracture of left femur GERD (gastroesophageal reflux disease) Hepatitis HTN (hypertension) Hyponatremia Schizoaffective disorder Smoker Thyroid disease Vertigo Surgical History Surgical History History of appendectomy History of esophagogastroduodenoscopy (EGD) History of hip surgery History of pubovaginal sling Hx of colonoscopy Hx of elbow surgery S/P hardware removal Social History Social History 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 Are you a primary ocular care technologist to a significant other at home: No Do you presently have visiting nurse or other home services: Yes (POST PARTUM NURSE) Patient Tobacco Use Status: Current everyday Tobacco user Tobacco use type: Cigarette Cigarette Packs Per Day: 0.25 Cigarettes Per Day: 8 Years Smoked: 44 On Nicotene patch and lozengers to quit smoking started 2 weeks ago Second Hand Smoke Exposure: No Use of substances other than those prescribed or required for medical reasons: No Are you DNR?: No Advance Directives: Yes Advance Directives on File: Yes Advance Directives Date on File: 05/27/20 Meds Allergies Allergy/AdvReac Type Severity Reaction Status Date / Time succinylcholine AdvReac Severe choline Verified 10/12/21 08:41 estrace deficiency cefaclor [From Ceclor] AdvReac Intermediate hives Verified 10/12/21 08:41 Penicillins AdvReac Intermediate hives Verified 10/12/21 08:41 Sulfa (Sulfonamide AdvReac Intermediate hives Verified 10/12/21 08:41 Antibiotics) Tetanus Vaccines and Toxoid AdvReac Hemiparesis Verified 10/19/21 10:55 Home Medications Medication Instructions Recorded Confirmed Last Taken Type atorvastatin 40 mg tablet 40 mg PO DAILY 05/04/20 08/01/21 Unknown History clonazepam 2 mg tablet 1 mg PO BID 05/04/20 10/12/21 02/23/21 History diltiazem HCl 240 mg 240 mg PO DAILY 05/04/20 10/12/21 02/23/21 History capsule,extended release 24 hr loratadine 10 mg capsule 10 mg PO DAILY 05/04/20 10/12/21 06/24/20 History meclizine 12.5 mg tablet 12.5 mg PO TID PRN Vertigo 05/04/20 10/12/21 Unknown History meloxicam 15 mg tablet 15 mg PO DAILY 05/04/20 10/12/21 Unknown History mirabegron 25 mg tablet,extended 25 mg PO DAILY 05/04/20 10/12/21 Unknown History release 24 hr pantoprazole 40 mg tablet,delayed 40 mg PO DAILY 05/04/20 10/12/21 02/23/21 History release (Protonix) ropinirole 2 mg tablet 2 mg PO BEDTIME 05/04/20 10/12/21 Unknown History sodium chloride 1 gram tablet 1,000 mg PO DAILY 05/04/20 10/12/21 Unknown History umeclidinium 62.5 mcg/actuation 1 inh inhalation DAILY 05/04/20 10/12/21 Unknown History blister powder for inhalation (Incruse Ellipta) buspirone 30 mg tablet 30 mg PO BID 12/12/20 10/12/21 02/23/21 History albuterol sulfate 90 mcg/actuation 2 puff inhalation Q4-6H PRN 02/16/21 10/12/21 02/23/21 History aerosol inhaler (ProAir HFA) Wheezing aspirin 81 mg tablet,delayed 81 mg PO DAILY 10/05/21 10/12/21 Unknown History release fluticasone propionate 50 1 spray intranasal BID 10/05/21 10/12/21 Unknown History mcg/actuation nasal spray,suspension nicotine (polacrilex) 2 mg buccal mg sublingual 10/05/21 10/12/21 Unknown History mini lozenge amitriptyline 100 mg tablet 100 mg PO BEDTIME 10/12/21 10/12/21 Unknown History aripiprazole 20 mg tablet 20 mg PO QAM 10/12/21 10/12/21 Unknown History duloxetine 60 mg capsule,delayed 60 mg PO QAM 10/12/21 10/12/21 Unknown History release gabapentin 600 mg tablet 600 mg PO TID 10/12/21 10/12/21 02/23/21 History levothyroxine 150 mcg tablet 150 mcg PO DAILY 10/12/21 10/12/21 Unknown History ropinirole 0.5 mg tablet 0.5 mg PO BEDTIME 10/12/21 10/12/21 Unknown History Exam Airway Mallampati Class: II TM Dist: >3cm Neck ROM: Full Heart: RRR Lungs: CTA Assessment and Plan Assessment Anesthesia Assessment: Anesthesia Plan Discussed Final Anesthetic Review NPO: Yes ASA Class: II Final Preanesthetic Review: Meds/Allgs Chart Reviewed, Consent Obtained/Reviewed and Anes Risks/Benef Reviewed Patient Risk: Low Procedure Risk: Low Anesthetic Plan Anesthetic Plan: MAC: Disposition: Standard PACU
--- NOTE | ~2021-10-19 | FL_ITS ---
EXAMINATION: XR FLUOROSCOPY WITH IMAGES CLINICAL INFORMATION: Medial branch block COMPARISON: None. TECHNIQUE: Fluoroscopy performed by Dr. Hector Ha. Fluoroscopy time: 0.4 minutes DAP: 4.94 mGycm2 Images: 4 FINDINGS: There are needles positioned right L5, L4, L3 and L2 facet joints with contrast opacifying the soft tissues. Visualized bones are grossly unremarkable. FL/FL guidance in OR IMPRESSION: Fluoroscopy provided to referring physician during pain management.
[2021-10-19 10:52] VITALS: BP 154/86; PULSE 86; RESP 16; TEMP 36.7; O2SAT 95; BMI 29.9
[2021-10-19] MEDS: Albuterol Sulfate (0.083%) 2.5 MG/3 ML VIAL.NEB INHALE (11:31)
[2021-10-19] MEDS: Lactated Ringers 1,000 ML 100 ML IVCONT (11:38)
--- NOTE | 2021-10-19 11:46 | MHC.SHP ---
Pre-Procedural Eval Section A Date of Service: 10/19/21 The patient is an INPATIENT: No Changes since office visit: Yes Patient answered all questions The History & Physical has been completed within 30 days and I have reviewed it.: No Section B Chief Complaint: Spondylosis without myelopathy or radiculopathy, Details of Present Illness: as above Relevant Family History (Specify if Yes): No Relevant Social History: None Present Medications: see Short Stay Collaborative assessment Medical History: No relevant PMH History of Previous Operations: No relevant previous surgery Allergies: Allergies Allergy/AdvReac Type Severity Reaction Status Date / Time succinylcholine AdvReac Severe choline Verified 10/12/21 08:41 estrace deficiency cefaclor [From Ceclor] AdvReac Intermediate hives Verified 10/12/21 08:41 Penicillins AdvReac Intermediate hives Verified 10/12/21 08:41 Sulfa (Sulfonamide AdvReac Intermediate hives Verified 10/12/21 08:41 Antibiotics) Tetanus Vaccines and Toxoid AdvReac Hemiparesis Verified 10/19/21 10:55 Review of Systems Sugical H&P ROS: Negative: Constitution, Cardiovascular, Neurological, Psychiatric, Hem-Onc, Allergic/Immunologic, Gastrointestinal, Genitourinary, Musculoskeletal, Integumentary, Endocrine and Eyes/Ears/Nose/Throat and Yes, Specify: Respiratory (COPD) Exam Surgical H&P Exam: Normal: HEENT, Normal: Heart, Normal: Extremities, Normal: Abdomen, Normal: Skin and Normal: Neurological and Significant Findings: Lungs (wheezing) Plan Diagnosis/Plan: Unchanged I have reviewed the history and physical and performed a pertinent physical examination on my patient. No changes have occurred unless specified.
[2021-10-19 12:22] VITALS: BP 86/55; PULSE 77; RESP 12; TEMP 37; O2SAT 99
--- NOTE | 2021-10-19 12:26 | W.PM.OPN ---
Operative Note Operative Note Date of Service: 10/19/21 Narrative: Right sided MBB L2-L3- L4- L5 diagnostic.. Informed consent was explained to the patient. She was taken inside of the operating room and was positioned prone on operating table. ASA monitors were applied . She was sedated. ? Time-out was performed. delineating name and of the patient site and side of the procedure. equipments needs and risks evaluation. ? Her mid and low back was prepped and draped with ChloraPrep and sterile Utility towels. ? C-arm was brought over the operating field and picture of patient's lumbar spine was demonstrated on the screen. The points of interest were delineated as connection of the superior process of the L3.L4 and L5 vertebra on the right with corresponding right transfer processes, as well as connection of the superior articular process of S1 on the right with the sacral ala. The projection of the points of interest to the skin were injected with lidocain 2% after that 22G 3 and 1/2 inch needle was sequentially inserted through the skin wheal and advanced toward the bone structures of interest in tunnel vision fashion. When the needle contacted the bone injection of the contrast was performed demonstrating no intravascular and no intrathecal spread of the contrast. The injection of?ropivacain 0.5% no more than 1 ml?was performed into each needle location after that. Upon completion of the injections the needle was removed and the dressing was applied.The patient tolerated the procedure well. She recovered in recovery room uneventfully.
--- NOTE | 2021-10-19 12:33 | PM.OP ---
Brief Operative Note Date of Service: 10/19/21 Pre-op diagnosis: spondylosis lumbar spine Post-op diagnosis: same Procedure: right sided diagnostic MBB Implants: none permanent Surgeon: Hector Ha MD Anesthesia: GETA Was an Microfilm Technician used for this Procedure?: No Estimated blood loss (mL): 0 Pathology: none sent Condition: stable Disposition: PACU
[2021-10-19 12:37] VITALS: BP 93/57; PULSE 76; RESP 11; O2SAT 99
[2021-10-19 12:50] VITALS: BP 100/58; PULSE 75; RESP 12; O2SAT 94
[2021-10-19 13:05] VITALS: BP 104/66; PULSE 74; RESP 16; O2SAT 94
[2021-10-19 13:20] VITALS: BP 126/71; PULSE 75; RESP 16; TEMP 36.2; O2SAT 97
== END 2021-10-19 14:27 | disposition home or self-care (01) ==
PROVIDERS: PCP Nurse Practitioner Family; Visit Provider Anesthesiology
PROC: (CPT 64493; principal; 2021-10-19 11:30)
DX: M47.816 Spondylosis without myelopathy or radiculopathy, lumbar region (principal); M54.50 Low back pain, unspecified; M51.36 Other intervertebral disc degeneration, lumbar region; M25.552 Pain in left hip; M21.752 Unequal limb length (acquired), left femur; D64.9 Anemia, unspecified; J44.9 Chronic obstructive pulmonary disease, unspecified; Z87.311 Personal history of (healed) other pathological fracture; Z88.0 Allergy status to penicillin; Z88.2 Allergy status to sulfonamides; Z88.8 Allergy status to other drugs, medicaments and biological substances; I10 Essential (primary) hypertension; Z98.890 Other specified postprocedural states; F17.210 Nicotine dependence, cigarettes, uncomplicated
CPT/HCPCS: 64493; 64494; J0690; J1170; J2250; J2795; J3300; Q9967

== ENCOUNTER 2021-10-31 06:27 | Day surgery (SDC) | payer OTHER, SELFPAY ==
--- NOTE | ~2021-10-31 | FL_ITS ---
EXAMINATION: XR FLUOROSCOPY WITH IMAGES CLINICAL INFORMATION: Peripheral nerve stimulator implant. COMPARISON: None. TECHNIQUE: Fluoroscopy performed by Dr. Hector Ha. FLUOROSCOPY TIME: 0.1 minutes. DAP: 0.916 uGy-cm2 FLUOROSCOPY IMAGES: 2 FINDINGS: There are 2 digital images obtained revealing a neurostimulator positioned adjacent to the left L5 pedicle. Visualized bones and the disc heights are normal. No visible fracture or dislocation seen. SI joints are symmetrical. FL/FL guidance in OR IMPRESSION: Fluoroscopy guidance was provided to referring physician for pain management.
[2021-10-31 06:35] VITALS: BMI 29.9
[2021-10-31 06:45] VITALS: BP 121/66; PULSE 81; RESP 18; TEMP 37.1; O2SAT 97
[2021-10-31 07:12] VITALS: BMI 29.9
--- NOTE | 2021-10-31 07:27 | MHC.SHP ---
Pre-Procedural Eval Section A Date of Service: 10/31/21 Section B Chief Complaint: sponylosis Details of Present Illness: spondylosis lumbar spine without radiculopathy or myelopathy Relevant Family History (Specify if Yes): No Relevant Social History: None Present Medications: see Short Stay Collaborative assessment Medical History: No relevant PMH History of Previous Operations: No relevant previous surgery Allergies: Allergies Allergy/AdvReac Type Severity Reaction Status Date / Time succinylcholine AdvReac Severe choline Verified 10/25/21 10:29 estrace deficiency cefaclor [From Ceclor] AdvReac Intermediate hives Verified 10/25/21 10:29 Penicillins AdvReac Intermediate hives Verified 10/25/21 10:29 Sulfa (Sulfonamide AdvReac Intermediate hives Verified 10/25/21 10:29 Antibiotics) Tetanus Vaccines and Toxoid AdvReac Hemiparesis Verified 10/25/21 10:29 Review of Systems Sugical H&P ROS: Negative: Constitution, Cardiovascular, Respiratory, Neurological, Psychiatric, Hem-Onc, Allergic/Immunologic, Gastrointestinal, Genitourinary, Musculoskeletal, Integumentary, Endocrine and Eyes/Ears/Nose/Throat Exam Surgical H&P Exam: Normal: HEENT, Normal: Heart, Normal: Lungs, Normal: Extremities, Normal: Abdomen, Normal: Skin and Normal: Neurological Plan Diagnosis/Plan: Unchanged I have reviewed the history and physical and performed a pertinent physical examination on my patient. No changes have occurred unless specified.
[2021-10-31] MEDS: Clindamycin Phosphate/D5W 900 MG/50 ML PIGGYBACK 50 MG IV (07:41)
[2021-10-31] MEDS: 0.9 % Sodium Chloride 500 ML 999 ML IV (07:42)
[2021-10-31 08:25] VITALS: BP 122/73; PULSE 71; RESP 18; TEMP 36.6; O2SAT 96
--- NOTE | 2021-10-31 08:30 | PM.OP ---
Brief Operative Note Date of Service: 10/31/21 Pre-op diagnosis: spondylosis lumbar spine without myelopathy or radiculopathy Post-op diagnosis: same Procedure: SPRINT trial of peripheral stimulation of multifidus muscle Left Lumbar five. Surgeon: Hector Ha MD Anesthesia: local Was an Supervisor Record Press used for this Procedure?: No Estimated blood loss (mL): 0.5 Pathology: none sent Condition: stable Disposition: PACU
--- NOTE | 2021-10-31 08:32 | P.OP_ITS ---
Operative Note Operative Note Date of Service: 10/31/21 Narrative: ?Percutaneous implantation of peripheral nerve stimulation Sprint system. After the risks, benefits and alternatives were discussed with the patient and informed consent was obtained, patient was placed in the prone position and padded to foster comfort. Time out was performed delineating correct site and side of the procedure , name and of the patient, patient participated in time out procedure. Sterily draped C-arm was brought over the operating field and clear picture of the L5 lamina on the left was delineated on the screen. The upper central portion of the lamina was chosen as a target of the needle tip incertion . After identifying and marking the intended target, the skin around the planned entry point and the subcutaneous tissues were injected with local anesthetic forming skin wheal.. A percutaneous sleeve and stimulating probe lead introduction system were assembled, inserted and advanced through the skin wheal to the? point of interest under C-arm view in tunnel vision fashion, the introducer needle was delivered to a location in proximity to the nerve. Multiple stimulation parameters were used to deliver stimulation to the? nerve in concert with stimulating at multiple positions around the nerve. Nerve target acquisition was confirmed noting generation of? in the? corresponding to the nerve being stimulated. Various electrical parameter combinations were tested, and the lead location was adjusted (physically relocated) until the patient indicated? overlapping the distribution of the patient?s typical region of pain. The stimulating probe was removed from the introducer and a percutaneous lead was guided through the needle and delivered to a location in similar proximity to the nerve. Final location was verified with electrical stimulation. The i ntroducer needle was removed, and the exposed end of the percutaneous lead was attached to an external stimulator unit. Various electrical parameter combinations were again tested until the patient indicated paresthesia or muscle tension overlapping the distribution of the patient?s typical region of pain. After confirming that lead impedance was in the normal range, the external unit was detached, the needle was removed, and the lead was anchored at the skin. The lead was threaded into the connector block and electrical continuity and desired patient response was confirmed. The connector block was attached to the external stimulator unit. The site was covered with a sterile occlusive dressing and a? image was taken to document final placement. Upon completion of the procedure the patient was taken outside the OR where she recovered uneventfully she went home without immediate complications.
== END 2021-10-31 09:17 | disposition home or self-care (01) ==
PROVIDERS: PCP Nurse Practitioner Family; Visit Provider Anesthesiology
PROC: (CPT 64555; principal; 2021-10-31 07:30)
DX: M47.816 Spondylosis without myelopathy or radiculopathy, lumbar region (principal); M51.36 Other intervertebral disc degeneration, lumbar region; G89.29 Other chronic pain; M54.50 Low back pain, unspecified; M25.552 Pain in left hip; J44.9 Chronic obstructive pulmonary disease, unspecified; I10 Essential (primary) hypertension; E78.00 Pure hypercholesterolemia, unspecified; F25.9 Schizoaffective disorder, unspecified; D64.9 Anemia, unspecified; E03.9 Hypothyroidism, unspecified; R42 Dizziness and giddiness; Z79.899 Other long term (current) drug therapy; Z88.0 Allergy status to penicillin; Z88.2 Allergy status to sulfonamides; Z88.8 Allergy status to other drugs, medicaments and biological substances; F17.210 Nicotine dependence, cigarettes, uncomplicated; Z98.890 Other specified postprocedural states
CPT/HCPCS: 64555; C1778; J2795

== ENCOUNTER → 2021-11-03 15:50 | Outpatient (BNVA) | payer OTHER, SELFPAY | PROVIDERS: Visit Provider Nurse Practitioner Family | DX: M47.816 Spondylosis without myelopathy or radiculopathy, lumbar region (principal); M51.36 Other intervertebral disc degeneration, lumbar region | CPT/HCPCS: Q3014 ==

== ENCOUNTER → 2021-11-06 15:11 | Outpatient (BNVA) | payer OTHER, SELFPAY | PROVIDERS: Visit Provider Anesthesiology | DX: M47.816 Spondylosis without myelopathy or radiculopathy, lumbar region (principal); M51.36 Other intervertebral disc degeneration, lumbar region | CPT/HCPCS: 99212 ==

== ENCOUNTER → 2022-01-01 08:40 | Outpatient (BNVA) | payer OTHER, SELFPAY | PROVIDERS: PCP Nurse Practitioner Family; Visit Provider Anesthesiology | DX: M47.816 Spondylosis without myelopathy or radiculopathy, lumbar region (principal); M51.36 Other intervertebral disc degeneration, lumbar region; Z98.890 Other specified postprocedural states | CPT/HCPCS: 99212 ==

== ENCOUNTER 2022-01-09 09:37 | Day surgery (SDC) | payer OTHER, SELFPAY ==
--- NOTE | ~2022-01-09 | FL_ITS ---
EXAMINATION: Intraoperative fluoroscopy CLINICAL INFORMATION: Lumbar stimulator COMPARISON: Intraoperative fluoroscopy October 31, 2021 TECHNIQUE: Intraoperative fluoroscopy was provided for use by Dr. Ha. A total of 2 images were saved to PACS. A radiologist was not present during imaging. Today's dictation is only for administrative purposes to document intraoperative fluoroscopic usage. TOTAL FLUOROSCOPIC TIME: 0.2 minutes FL/FL guidance in OR FINDINGS~\^^ Intraoperative fluoroscopy provided for use by Dr. Ha. Please see operative note for detailed findings.
--- NOTE | 2022-01-09 09:14 | MHC.SHP ---
Pre-Procedural Eval Section A Date of Service: 01/09/22 The patient is an INPATIENT: No Changes since office visit: Yes Changes in Medication and Yes Patient answered all questions Section B Chief Complaint: spondylosis Details of Present Illness: as above Relevant Family History (Specify if Yes): No Relevant Social History: None Present Medications: see Short Stay Collaborative assessment Medical History: No relevant PMH History of Previous Operations: No relevant previous surgery Allergies: Allergies Allergy/AdvReac Type Severity Reaction Status Date / Time succinylcholine AdvReac Severe choline Verified 01/01/22 08:53 estrace deficiency cefaclor [From Ceclor] AdvReac Intermediate hives Verified 01/01/22 08:53 Penicillins AdvReac Intermediate hives Verified 01/01/22 08:53 Sulfa (Sulfonamide AdvReac Intermediate hives Verified 01/01/22 08:53 Antibiotics) Tetanus Vaccines and Toxoid AdvReac Hemiparesis Verified 01/01/22 08:53 Review of Systems Sugical H&P ROS: Negative: Constitution, Cardiovascular, Respiratory, Neurological, Psychiatric, Hem-Onc, Allergic/Immunologic, Gastrointestinal, Genitourinary, Musculoskeletal, Integumentary, Endocrine and Eyes/Ears/Nose/Throat Exam Surgical H&P Exam: Normal: HEENT, Normal: Heart, Normal: Lungs, Normal: Extremities, Normal: Abdomen, Normal: Skin and Normal: Neurological Plan Diagnosis/Plan: Unchanged I have reviewed the history and physical and performed a pertinent physical examination on my patient. No changes have occurred unless specified.
[2022-01-09 11:01] VITALS: BP 141/73; PULSE 69; RESP 18; TEMP 36.3; O2SAT 97
--- NOTE | 2022-01-09 11:55 | PC.NURSE ---
Dr. Ha was updated that patient stated she fell at home on Saturday and was taken by ambulance to [facility]. Pt stated she was admitted for observation for left sided arm and head pain, along with vertebral pain. Patient stated she was told she needed a neurosurgeon consultation. X-rays and MRI's (per pt - she initially said CT) were completed and neurosurgeon consult was cancelled. Dr. Ha asked patient questions and stated was okay to proceed. Surgical consent and H&P brought to Patricia director treasurer for clarification of level of procedure. Dr. Ha met with Mihai and Lumbar 5 was added to the surgical consent as well and doctor's documentation in computer. Patricia stated she would put the surgical order in to reflect the changes.
--- NOTE | 2022-01-09 12:03 | PC.NURSE ---
author verified that Dr. Ha's initial were seen on the patient's right back prior to leaving [facility] area.
[2022-01-09 12:20] VITALS: BP 116/61; PULSE 69; RESP 16; TEMP 36.3; O2SAT 96
--- NOTE | 2022-01-09 12:39 | PM.OP ---
Brief Operative Note Date of Service: 01/09/22 Pre-op diagnosis: spondylosis lumbar spine Post-op diagnosis: same Procedure: SPRINT L4 stimulation right Implants: none permanent Surgeon: Hector Ha MD Anesthesia: local Was an Power Shear Operator used for this Procedure?: No Estimated blood loss (mL): 0 Condition: stable Disposition: PACU
--- NOTE | 2022-01-09 12:40 | W.PM.OPN ---
Operative Note Operative Note Date of Service: 01/09/22 Narrative: ?Percutaneous implantation of peripheral nerve stimulation Sprint system. After the risks, benefits and alternatives were discussed with the patient and informed consent was obtained, patient was placed in the prone position and padded to foster comfort. Time out was performed delineating correct site and side of the procedure , name and of the patient, patient participated in time out procedure. Sterily draped C-arm was brought over the operating field and clear picture of the L5 lamina on the right was delineated on the screen. The upper central portion of the lamina was chosen as a target of the needle tip incertion . After identifying and marking the intended target, the skin around the planned entry point and the subcutaneous tissues were injected with local anesthetic forming skin wheal.. A percutaneous sleeve and stimulating probe lead introduction system were assembled, inserted and advanced through the skin wheal to the? point of interest under C-arm view in tunnel vision fashion, the introducer needle was delivered to a location in proximity to the muscle. Multiple stimulation parameters were used to deliver stimulation to the? nerve in concert with stimulating at multiple positions around the nerve. The patient reported appropriate stimulation but said it does not correspond to her pain. After that clear picture of the L4 lamina on the right was delineated on the screen.The upper central portion of the lamina was chosen as a target of the needle tip insertion . After identifying and marking the intended target, the skin around the planned entry point and the subcutaneous tissues were injected with local anesthetic forming skin wheal.. A percutaneous sleeve and stimulating probe lead introduction system were assembled, inserted and advanced through the skin wheal to the? point of interest under C-arm view in tunnel vision fashion, the introducer needle was delivered to a location in proximity to the muscle. Nerve target acquisition was confirmed noting generation of? in the? corresponding to the nerve being stimulated. Various electrical parameter combinations were tested, and the lead location was adjusted (physically relocated) until the patient indicated? overlapping this time the distribution of the patient?s typical region of pain. The stimulating probe was removed from the introducer and a percutaneous lead was guided through the needle and delivered to a location in similar proximity to the nerve. Final location was verified with electrical stimulation. The introducer needle was removed, and the exposed end of the percutaneous lead was attached to an external stimulator unit. Various electrical parameter combinations were again tested until the patient indicated paresthesia or muscle tension overlapping the distribution of the patient?s typical region of pain. After confirming that lead impedance was in the normal range, the external unit was detached, the needle was removed, and the lead was anchored at the skin. The lead was threaded into the connector block and electrical continuity and desired patient response was confirmed. The connector block was attached to the external stimulator unit. The site was covered with a sterile occlusive dressing and a? image was taken to document final placement. Upon completion of the procedure the patient was taken outside the OR where she recovered uneventfully she went home without immediate complications.
[2022-01-09 12:43] VITALS: BP 113/71; PULSE 77; RESP 16; TEMP 36.3; O2SAT 96
== END 2022-01-09 12:51 | disposition home or self-care (01) ==
PROVIDERS: PCP Nurse Practitioner Family; Visit Provider Anesthesiology
PROC: (CPT 64555; principal; 2022-01-09 11:00)
DX: M47.816 Spondylosis without myelopathy or radiculopathy, lumbar region (principal); I10 Essential (primary) hypertension; D64.9 Anemia, unspecified; J44.9 Chronic obstructive pulmonary disease, unspecified; F25.9 Schizoaffective disorder, unspecified; B19.20 Unspecified viral hepatitis C without hepatic coma; Z88.0 Allergy status to penicillin; Z88.2 Allergy status to sulfonamides; Z88.8 Allergy status to other drugs, medicaments and biological substances; F17.210 Nicotine dependence, cigarettes, uncomplicated; M51.36 Other intervertebral disc degeneration, lumbar region
CPT/HCPCS: 64555; C1778; J2795

== ENCOUNTER → 2022-01-19 11:33 | Outpatient (BNVA) | payer OTHER, SELFPAY | PROVIDERS: PCP Nurse Practitioner Family; Visit Provider Nurse Practitioner Family | DX: M47.816 Spondylosis without myelopathy or radiculopathy, lumbar region (principal); M51.36 Other intervertebral disc degeneration, lumbar region | CPT/HCPCS: 99212 ==

== ENCOUNTER → 2022-01-29 10:51 | Outpatient (BNVA) | payer OTHER, SELFPAY | PROVIDERS: PCP Nurse Practitioner Family; Visit Provider Nurse Practitioner Family | DX: Z48.00 Encounter for change or removal of nonsurgical wound dressing (principal) | CPT/HCPCS: 99211 ==

== ENCOUNTER → 2022-03-19 10:17 | Outpatient (BNVA) | payer OTHER, SELFPAY | PROVIDERS: PCP Nurse Practitioner Family; Visit Provider Nurse Practitioner Family | DX: M47.816 Spondylosis without myelopathy or radiculopathy, lumbar region (principal); M51.36 Other intervertebral disc degeneration, lumbar region | CPT/HCPCS: 99212 ==

== ENCOUNTER → 2022-07-02 13:00 | Outpatient (BNVA) | payer OTHER, SELFPAY | PROVIDERS: PCP Nurse Practitioner Family; Visit Provider Anesthesiology | DX: M47.816 Spondylosis without myelopathy or radiculopathy, lumbar region (principal); M51.36 Other intervertebral disc degeneration, lumbar region | CPT/HCPCS: 99212 ==

== ENCOUNTER 2023-01-14 10:03 | Outpatient (AMB) | payer OTHER, SELFPAY ==
--- NOTE | 2023-01-14 10:33 | A.OFFVIS_ITS ---
Intake Vital Signs 3 01/14/23 10:34 Height 5 ft Weight 139 lb 2 oz BMI 27.2 BP 136/76 Blood Pressure Location Rt brachial Position Sitting Respiration 16 Pulse 86 Pulse Source Pulse Oximeter Pulse Oximetry (%) 96 Oxygen Delivery Method Room Air Intake Visit Reasons: CONTINUOS BACK PAIN/Confirmed Intake Note: patient comes in for continuos back pain, she stated that she fell and hurt her back. pain level today is 7/10. Allergies succinylcholine Adverse Reaction (Severe, Verified 01/14/23 10:34) choline estrace deficiency cefaclor [From Ceclor] Adverse Reaction (Intermediate, Verified 01/14/23 10:34) hives Penicillins Adverse Reaction (Intermediate, Verified 01/14/23 10:34) hives Sulfa (Sulfonamide Antibiotics) Adverse Reaction (Intermediate, Verified 01/14/23 10:34) hives Tetanus Vaccines and Toxoid Adverse Reaction (Verified 01/14/23 10:34) Hemiparesis HPI HPI Comments 2 History of Present Illness0 Details Rhona is back in my office with new complains. She reported that 3 weeks ago she fell on her back and hit her coccygeal area as well as cervical spine as well as her head. She never went to emergency room or primary care physician, she never had any images demonstrating any possible fracture injury. She at this moment denies loss of consciousness and nausea, she admits diplopia but she states that diplopia is her chronic condition and exists whenever she takes her glasses out. She reports severe coccydynia and pain in the neck with radiation to the shoulders and radiation of the back of the head. She is on chronic meloxicam. I recommended her to stop meloxicam for now and start ibuprofen 400 mg every 6 hours not p.r.n. for next 15 days and then stop. We will evaluate her condition after that. I also would like to see the head CT to rule out any possible brain abnormalities. I will send her for routine head CT at this time. I will schedule her for ganglion impar injection to treat her coccydynia. Prior: right L5 Sprint PNS 1 year ago 01/09/2022. 70% pain relief for her right sided back pain with notable improvement in her daily activities, functioning, sleep and social interactions. She does note that left sided back pain relief was much higher but still appreciates ongoing pain relief for right side. Patient continues to report excellent pain relieve on the left side, she reports better ability of performing activities of daily living, better social interactions, better mobility. Patient is looking forward that right side PNS trial will reach similar levels of pain relief. Patient will follow up next week with SPRINT rep to confirm functioning of her device and adjust program as needed. Patient reports she is also has been in contact with SPRINT rep via telephone. PRIOR 01/01/22 Rhona is very pleasant 66 years old female who is in my office status post trial of PNS sprint on 10/31/2021. It was performed on the right side of the lumbar spine of the patient at the L4 versus L5 area. She reports that after 2 months of wearing device she experience excellent pain relief from the devices she reports better mobility better social interactions better activities of daily living. She is very happy with the treatment she received. [facility] Medical History Anemia Asthma Back pain COPD (chronic obstructive pulmonary disease) COVID-19 vaccine series completed Elevated cholesterol Fracture of left femur GERD (gastroesophageal reflux disease) Hepatitis HTN (hypertension) Hyponatremia Schizoaffective disorder Smoker Thyroid disease Vertigo Surgical History History of appendectomy History of esophagogastroduodenoscopy (EGD) History of hip surgery History of pubovaginal sling Hx of colonoscopy Hx of elbow surgery S/P hardware removal Social History Household Members Other:: [employer] Are you a primary customer care agent to a significant other at home: No Do you presently have visiting nurse or other home services: Yes ([employer]) Patient Tobacco Use Status: Current everyday Tobacco user Tobacco use type: Cigarette Cigarette Packs Per Day: 0.25 Cigarettes Per Day: 2 Years Smoked: 44 On Nicotene patch and lozengers to quit smoking started 2 weeks ago Second Hand Smoke Exposure: Yes Advance Directives Date on File: 05/27/20 Review of Systems Const All systems reviewed & are unremarkable except as noted in HPI and below ENT Reports Normal hearing present Neuro Reports Normal hearing present, Denies Abnormal speech present and Denies confusion Psych Denies confusion Physical Exam Vital Signs: Last Vital Signs Pulse 86 01/14/23 10:34 Resp 16 01/14/23 10:34 BP 136/76 01/14/23 10:34 Pulse Ox 96 01/14/23 10:34 Oxygen Delivery Method Room Air 01/14/23 10:34 BMI result Body Mass Index 27.2 Const General: No confusion Orientation/consciousness: No confusion Resp Effort & Inspection: normal respiratory effort, able to speak in complete sentences and no audible wheezes Cardio Jugular venous distension: no JVD GI Inspection: Yes normal to inspection General: Yes no CVA tenderness Back/Spine/Pelvis Back: no CVA tenderness Thoracic/Lumbar Spine: thoraco-lumbar spasm and lumbar spinal tenderness Neuro General: No confusion Cranial nerves: Yes Normal hearing present Speech: No Abnormal speech present Results Reviewed Results Reviewed: Assessment & Plan Assessment & Plan (1) Spondylosis of lumbar region without myelopathy or radiculopathy: Code(s): M47.816 - Spondylosis without myelopathy or radiculopathy, lumbar region (2) DDD (degenerative disc disease), lumbar: Code(s): M51.36 - Other intervertebral disc degeneration, lumbar region (3) Head trauma: Code(s): S09.90XA - Unspecified injury of head, initial encounter (4) Headache, post-traumatic: Code(s): G44.309 - Post-traumatic headache, unspecified, not intractable (5) Coccydynia: Code(s): M53.3 - Sacrococcygeal disorders, not elsewhere classified Plan I was planning to schedule the patient left L2 and right L5 PNS sprint. I also was thinking about preparing her for freedom PNS if this L2 on the left and right L5 will be giving this patient good results she was considered to be sent for psychological evaluation. However she fell on her back and hit her coccyx and neck and back of the head. She reports significant headache. I offered her to treat her coccydynia with ganglion impar injection. I recommended her to stop her meloxicam for while and start on the clock 400 mg of ibuprofen for next 15 days. I also will send her for x-ray of the pelvis to rule out coccygeal fracture or pelvic fracture, I also will send her for head CT because she never had evaluation after head trauma. I will schedule her for ganglion impar injection to treat her coccydynia. I will see her after the injection. Orders: Orders 2 CT head/brain wo IV con Today G44.309 - Post-traumatic headache, unspecified, not intractable, S09.90XA - Unspecified injury of head, initial encounter XR pelvis min 3V Today M53.3 - Sacrococcygeal disorders, not elsewhere classified Coding Level of Care Code Est Pt Level 4 (18374) Diagnoses Spondylosis of lumbar region without myelopathy or radiculopathy M47.816 DDD (degenerative disc disease), lumbar M51.36 Head trauma S09.90XA Headache, post-traumatic G44.309 Coccydynia M53.3
[2023-01-14 10:34] VITALS: BP 136/76; PULSE 86; RESP 16; O2SAT 96; BMI 27.2
== END 2023-01-14 10:59 | disposition home or self-care (01) ==
PROVIDERS: PCP Nurse Practitioner Family; Visit Provider Anesthesiology
DX: M47.816 Spondylosis without myelopathy or radiculopathy, lumbar region (principal); M51.36 Other intervertebral disc degeneration, lumbar region; S09.90XA Unspecified injury of head, initial encounter; G44.309 Post-traumatic headache, unspecified, not intractable; M53.3 Sacrococcygeal disorders, not elsewhere classified
CPT/HCPCS: 99214

== ENCOUNTER → 2023-01-14 10:03 | Outpatient (BNVA) | payer OTHER, SELFPAY | PROVIDERS: PCP Nurse Practitioner Family; Visit Provider Anesthesiology | DX: G44.309 Post-traumatic headache, unspecified, not intractable (principal); M53.3 Sacrococcygeal disorders, not elsewhere classified; M51.36 Other intervertebral disc degeneration, lumbar region; M47.816 Spondylosis without myelopathy or radiculopathy, lumbar region; S09.90XA Unspecified injury of head, initial encounter; W17.89XA Other fall from one level to another, initial encounter; Y93.9 Activity, unspecified; Y92.9 Unspecified place or not applicable; Y99.8 Other external cause status | CPT/HCPCS: 99212 ==

== ENCOUNTER 2023-02-12 06:13 | Outpatient (REF) | payer OTHER, SELFPAY ==
--- NOTE | ~2023-02-12 | FL_ITS ---
EXAMINATION: XR FLUOROSCOPY WITH IMAGES CLINICAL INFORMATION: Sacrococcygeal disorders, not elsewhere classified. COMPARISON: None available. TECHNIQUE: Fluoroscopy Supervised By: Dr. Hector Ha. Fluoroscopy Time: 0.3 minutes. Cumulative Dose: 17.3 mGy. DAP: 0.105 Gycm2. Images: 2. FINDINGS: Image demonstrates needle contrast injection adjacent to the ventral lower sacrum/upper coccyx FL/FL guidance in treatment room IMPRESSION: Fluoroscopy guidance for pain management procedure
== END 2023-02-12 06:14 | disposition home or self-care (01) ==
LOC: CF 06:13
PROVIDERS: Visit Provider Anesthesiology
DX: M53.3 Sacrococcygeal disorders, not elsewhere classified (principal)
CPT/HCPCS: 64999; 76000; J2795; J3301; Q9967

== ENCOUNTER 2023-02-12 09:18 | Outpatient (AMB) | payer OTHER, SELFPAY ==
--- OUTSIDE RECORDS SUMMARY | 2023-02-12 09:19 | XMS_ITS | Patient Health Record ---
Author Name Unknown Organization [facility] Address [address] [place] [address] Care Team Providers Care Engineering Department Chair Name Role Phone Nicky Haynes Primary Care Provider Unavailab le ALLERGIES Allergen (clinical drug ingredient) Drug/Non Drug Allergy documented on EMR Reaction Allergy Type Onset Date Status cefaclor Cefaclor Unknown Drug Allergy Active Substance with penicillin structure and antibacterial mechanism of action (substance) Penicillins Unknown Drug Allergy Active Substance with sulfonamide structure and antibacterial mechanism of action (substance) Sulfa Antibiotics Unknown Drug Allergy Active REASON FOR REFERRAL No Information MEDICATIONS Medication SIG (Take, Route, Frequency, Duration) Notes Start Date End Date Status Baclofen 10 MG 1 tablet with food o r milk Orally four times a day Active Loratadine 10 MG 1 tablet Orally Once a day Active FeroSul 325 (65 Fe) MG 1 tablet Orally O nce a day Not-Taking Ammonium Lactate 12 % 1 application Externally Twice a day for 90 days 04/13/2021 Active Gabapentin 600 MG 1 tablet Orally Active Nicotine 21 MG/24HR 1 patch to skin Transdermal Not-Taking Levothyroxine Sodium 150 MCG 1 tablet in the morning on an empty stomach Orally Active Pantoprazole Sodium 40 MG 1 tablet Orall y Once a day Active Sodium Chloride Acti ve Atorvastatin Calcium 40 MG 1 tablet Oral ly Once a day Active AmLactin 12 % 1 application Externally daily for 90 days Active Meclizine HCl 25 MG 1 tablet as needed Orally Active Nystatin 472946 UNIT/GM 1 application Externally Twice a day for 90 days 04/04/2021 Active Cholecalciferol Acti ve rOPINIRole HCl 2 MG 1 tablet 1 to 3 hour s before bedtime Orally Once a day Active Desvenlafaxine ER 100 MG 1 tablet Orally Once a day Active Albuterol Sulfate 108 (90 Base) MCG/ACT 1 puff as needed Inhalation every 4 hrs Active dilTIAZem HCl ER 240 MG 1 capsule Orally Once a day Active Itraconazole 100 MG 1 capsule after a me al Orally Once a day for 14 days 01/30/2021 Active Meloxicam 15 MG as directed Orally Active Methylcellulose (Laxative) 500 MG 2 tablets with a full glass of water as needed Orally daily Active Nitrofurantoin Macrocrystal 50 MG 1 capsule at bedtime with food or milk Orally Once a day Not-Taking Depo-Provera Not-Scooter ing Terbinafine HCl 250 MG 1 tablet Orally O nce a day for 14 days 11/30/2020 Not-Taking clonazePAM 2 MG 1 tablet Orally 3 times daily prn Active Amitriptyline HCl 100 MG 1 tablet at bed time Orally Once a day Active oxyBUTYnin Not-Takin g SOCIAL HISTORY Sex Assigned At : Social History Observation Description Sex Assigned At Unknown PROBLEMS Problem Type ICD Code Onset Dates Problem Status W/U Status Risk SNOMED Code Notes Problem Congenital metatarsus adductus, 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 47773778972133495 Problem Congenital metatarsus adductus, 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) Active confirmed 94450430 Problem Lower limb length difference (M21.70) Active confirmed 35276476 Problem Other polyneuropathy (G62.89) Active confirmed 82991356 PLAN OF TREATMENT Pending Test Test Name Order Date Hepatic Function Panel (7) 05/02/2020 Insurance Providers Payer Name Payer Address Payer Phone Subscriber Number Group Number Insured Name Patient Relationship to Insured Coverage Start Date Coverage End Date [facility] [address] [place] [address] [phone] [facility] [id number] Rhona Gandara Self - patient is the insured MEDICAL (GENERAL) HISTORY Medical History History ICD Code 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 E22.2 Anemia, unspecified D64.9 Tobacco use disorder F17.200 Inflammatory disease of uterus, unspecif ied N71.9 Abnormal findings on diagnostic imaging of other specified body structures R93.89 Postmenopausal bleeding N95.0 Encounter for screening for infections with a predominantly sexual mode of transmission Z11.3 Essential hypertension I10 Migraine, unspecified, not intractable, without status migrainosus G43.909 Familial hypercholesterolemia E78.01 Dyskinesia of esophagus K22.4 Periodic limb movement disorder G47.61 Basal cell carcinoma of skin, unspecifie d C44.91 Gastro-esophageal reflux disease without esophagitis K21.9 Hyperlipidemia, unspecified E78.5 Obstructive sleep apnea (adult) (pediatr ic) G47.33 Other abnormal and inconclusive findings on diagnostic imaging of breast R92.8 Hypothyroidism, unspecified E03.9 Unspecified viral hepatitis C without he patic coma B19.20 Dorsalgia, unspecified M54.9 Other chronic pain G89.29 Unspecified asthma, uncomplicated J45.90 9 Schizoaffective disorder, unspecified F2 5.9 Age-related osteoporosis without current pathological fracture M81.0 Surgical History Surgery Date(Month/Year) repair left hip fracture x 2 repair femur fracture left x 2 EGD foot surgery bilateral colonoscopy elbow surgery bladder surgery leg/ankle surgery
--- OUTSIDE RECORDS SUMMARY | 2023-02-12 09:20 | XMS_ITS | Continuity of Care Document ---
Author Name Unknown Organization [facility] Address [address] [place] [address]- Care Team Providers Care Panelboard Tank Pumper Name Role Phone Sanjay Carl NP Primary Care Physician [phone] Encounter [facility] Date(s): 11/29/22 - 12/29/22 [facility] [address] [place] [phone]- Allergies, Adverse Reactions, Alerts Substance Reaction Severity Status penicillin hives Active succinylcholine 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 sulfonamides hives Active sulfa drugs hives Active Ceclor hives Active Immunizations Given and Recorded Vaccine Date Status Refusal Reason [id number] 12y+ bivalent booster vax 03/01/22 Recorded influenza virus vaccine, inactivated 02/09/22 Give n influenza virus vaccine, inactivated 02/03/21 Give n influenza virus vaccine, inactivated 02/03/21 Bala rded influenza virus vaccine, inactivated 01/30/20 Bala rded influenza virus vaccine, inactivated 01/30/20 Bala rded influenza virus vaccine, inactivated 12/25/18 Bala rded influenza virus vaccine, inactivated 12/25/18 Bala rded influenza virus vaccine, inactivated 04/16/18 Bala rded influenza virus vaccine, inactivated 04/16/18 Bala rded influenza virus vaccine, inactivated 03/12/16 Bala rded influenza virus vaccine, inactivated 03/12/16 Bala rded influenza virus vaccine, inactivated 01/21/15 Bala rded influenza virus vaccine, inactivated 01/21/15 Bala rded influenza virus vaccine, inactivated 01/28/14 Bala rded influenza virus vaccine, inactivated 01/28/14 Bala rded influenza virus vaccine, inactivated 05/08/13 Bala rded influenza virus vaccine, inactivated 05/08/13 Bala rded influenza virus vaccine, inactivated 1 05/02/09 Gi yousif SARS-CoV-2 mRNA ([id number]) vax 11/03/21 Given SARS-CoV-2 mRNA ([id number]) vax 11/03/21 Recorded SARS-CoV-2 (COVID-19) mRNA BNT-162b2 vac 02/03/21 Given SARS-CoV-2 (COVID-19) mRNA BNT-162b2 vac 02/03/21 Recorded SARS-CoV-2 (COVID-19) mRNA BNT-162b2 vac 07/20/20 Recorded SARS-CoV-2 (COVID-19) mRNA BNT-162b2 vac 07/20/20 Recorded SARS-CoV-2 (COVID-19) mRNA BNT-162b2 vac 06/29/20 Recorded SARS-CoV-2 (COVID-19) mRNA BNT-162b2 vac 06/29/20 Recorded zoster vaccine, inactivated 04/16/18 Recorded zoster vaccine, inactivated 04/16/18 Recorded pneumococcal 23-valent vaccine 04/16/18 Recorded pneumococcal 23-valent vaccine 04/16/18 Recorded pneumococcal 23-valent vaccine 2 05/02/09 Given influ virus vac, H1N1, inactive(oldterm) 3 07/19/09 Given 1Result Comment: [id number] 2Result Comment: [id number] 3Result Comment: september 22 [id number] Medications albuterol CFC free 90 mcg/inh inhalation aerosol 2, puffs, Inhalation, Every 6 hours, PRN, # 1 each, Refills 9, Tot. Refills 9, Maintenance, 05/01/22 10:18:00 EST, Aerosol, Route to Pharmacy Electronically, [id number], [facility] #[id number], 153, cm, 05/01/22 9:47:00... Start Date: 05/01/22 Stop Date: 02/25/23 Status: Ordered amitriptyline 100 mg oral tablet 1 tablet = 100 mg, By Mouth, Daily at bedtime, # 30 tablet, 0 Refills, Maintenance, 04/17/21 12:15:00 EST, Tablet, Partial fill upon patient request if the prescription is for a schedule II opioid drug. Start Date: 04/17/21 Status: Ordered ARIPiprazole 20 mg oral tablet 1 tablet = 20 mg, By Mouth, Daily, 0 Refills, Maintenance, 02/07/22 23:47:00 EDT, Tablet, ; Start Date: 02/07/22 Status: Ordered aspirin 81 mg oral delayed release tablet 81 mg, 1, tablet, By Mouth, Daily, # 30 tablet, Refills 0, Tot. Refills 0, Maintenance, 12/05/21 18:14:00 EDT, Route to Pharmacy Electronically, [facility] #[id number], Partial fill upon patientrequest if the prescription is for a schedule II op... Start Date: 12/05/21 Status: Ordered atorvastatin 40 mg oral tablet 1 tablet, By Mouth, Daily, # 30 tablet, 11 Refills, Maintenance, 07/07/22 8:17:00 EDT, [facility] #[id number], 153, cm, 06/15/22 11:28:00 EST, Height, 71.1, kg, 05/01/22 9:47:00 EST, Dry Weight Start Date: 07/07/22 Status: Ordered baclofen 20 mg oral tablet 20 mg, 1, tablet, By Mouth, 4 times a day, PRN, Refills 0, Maintenance, Spasm, 02/07/22 23:47:00 EDT, ; Start Date: 02/07/22 Status: Ordered busPIRone 30 mg oral tablet 1 tablet = 30 mg, By Mouth, 2 times a day, # 180 tablet, 0 Refills, Maintenance, 04/17/21 12:15:00 EST, Tablet, Partial fill upon patient request if the prescription is for a schedule II opioid drug. Start Date: 04/17/21 Status: Ordered calcium carbonate 500 mg (200 mg elemental calcium) oral tablet, chewable CHEW 1 TABLET, By Mouth, Daily, Maintenance, 02/08/22 14:34:00 EDT, ; Start Date: 02/08/22 Status: Ordered cholestyramine 4 g/5.5 g oral powder for reconstitution = 4 Gm, By Mouth, 2 times a day, Maintenance, 02/08/22 14:36:00 EDT, REC Powder, ; Start Date: 02/08/22 Status: Ordered CHOLESTYRAMINE 4GM LGHT POW PK 60S CHOLESTYRAMINE 4GM LGHT POW PK 60S, 1, pack/packet, By Mouth, 2 times a day, # 60 each, 0 Refills, Maintenance, 05/28/22 8:55:00 EST, 153, cm, 05/01/22 9:47:00 EST, Height, 71.1, kg, 05/01/22 9:47:00EST, Dry Weight Start Date: 05/28/22 Status: Ordered CHOLESTYRAMINE 4GM [facility] PK 60S CHOLESTYRAMINE 4GM [facility] PK 60S, 1, pack/packet, By Mouth, 2 times a day, # 60 each, 0 Refills, Maintenance, 05/04/22 12:15:00 EST, 153, cm, 05/01/22 9:47:00 EST, Height, 71.1, kg, 05/01/22 9:47:00 EST, Dry Weight Start Date: 05/04/22 Status: Ordered clonazePAM 0.5 mg oral tablet 0.5 tablet = 0.25 mg, By Mouth, 2 times a day, PRN Anxiety, # 10 tablet, 0 Refills, Maintenance, 02/10/22 17:06:00 EDT, Tablet, [facility] #[id number], Partial fill upon patient request if the prescription is for a schedule II opioid drug. Start Date: 02/10/22 Status: Ordered DilTIAZem (Eqv-Cardizem CD) 240 mg/24 hours oral capsule, extended release 1 capsule, By Mouth, Daily, # 90 capsule, 0 Refills, Maintenance, 12/03/22 21:45:00 EDT, [facility] #[id number], 160, cm, 11/27/22 11:52:00 EDT, Height, 65, kg, 10/30/22 18:20:00 EDT, Dry Weight Start Date: 12/03/22 Status: Ordered duloxetine 60 mg oral enteric coated capsule 1 capsule = 60 mg, By Mouth, 2 times a day, 0 Refills, Maintenance, 02/07/22 23:47:00 EDT, EC Capsule, ; Start Date: 02/07/22 Status: Ordered fluticasone 50 mcg/inh nasal spray 1 sprays, Nares, Both, 2 times a day, 0 Refills, Maintenance, 02/07/22 23:47:00 EDT, [place], ; Start Date: 02/07/22 Status: Ordered gabapentin 600 mg oral tablet 1 tablet, By Mouth, 4 times a day, # 360 tablet, 1 Refills, Maintenance, 12/27/22 7:05:00 EDT, [facility] #[id number], 153, cm, 12/10/22 11:16:00 EDT, Height, 65, kg, 10/30/22 18:20:00 EDT, Dry Weight Start Date: 12/27/22 Status: Ordered Incruse Ellipta 62.5 mcg/inh inhalation powder 1 puffs, Inhalation, Every 24 hours, APART., # 30 each, 6 Refills, Maintenance, 08/07/22 7:23:00 EDT, [facility] #[id number], 153, cm, 08/03/22 11:04:00 EDT, Height, 73.5, kg, 08/03/22 11:04:00 EDT, Dry Weight Start Date: 08/07/22 Stop Date: 08/08/22 Status: Ordered Left wrist splint cocked to neutral position Left wrist splint cocked to neutral position, See Instructions, # 2 each, Refills 0, Tot. Refills 0, Maintenance, left wrist splint to be worn every night to bed for carpal tunnel syndrome G56.00, 12/28/21 13:28:00 EDT, Compound Start Date: 12/28/21 Status: Ordered levothyroxine 150 mcg (0.15 mg) oral capsule 2 capsule = 300 mcg, By Mouth, Daily, ON SATURDAY ONLY, Maintenance, 02/08/22 14:39:00 EDT, Capsule, ; Start Date: 02/08/22 Status: Ordered levothyroxine 150 mcg (0.15 mg) oral tablet See Instructions, 1 tablet By Mouth Daily 6 days weekly and 2 tabs on te day, # 104 each, 3 Refills, Maintenance, 11/29/22 12:53:00 EDT, Tablet, [facility] #[id number], Partial fill upon patient request if the prescription is for a schedule I... Start Date: 11/29/22 Status: Ordered loratadine 10 mg oral tablet 1, tablet, By Mouth, Daily, # 90 tablet, Refills 1, Tot. Refills 1, Maintenance, 09/20/22 15:11:00 EDT, Route to Pharmacy Electronically, [facility] #[id number], 153, cm, 09/20/22 14:55:00 EDT, Height, 73.5, kg, 08/03/22 11:04:00 EDT, Dry Weight Start Date: 09/20/22 Status: Ordered meloxicam 15 mg oral tablet 1 tablet, By Mouth, Daily, # 90 tablet, 1 Refills, Maintenance, 08/07/22 7:23:00 EDT, [facility] #[id number], 153, cm, 08/03/22 11:04:00 EDT, Height, 73.5, kg, 08/03/22 11:04:00 EDT, Dry Weight Start Date: 08/07/22 Status: Ordered methenamine hippurate 1 gm oral tablet 1 tablet = 1 Gm, By Mouth, 2 times a day, Maintenance, 02/08/22 14:30:00 EDT, Tablet, ; Start Date: 02/08/22 Status: Ordered Myrbetriq 25 mg oral tablet, extended release 1 tablet = 25 mg, By Mouth, Daily, do not crush or chew, # 30 tablet, 0 Refills, Maintenance, 04/17/21 12:14:00 EST, ER Tablet, Partial fill upon patient request if the prescription is for a scheduleII opioid drug. Start Date: 04/17/21 Status: Ordered naltrexone 50 mg oral tablet 1 tablet = 50 mg, By Mouth, Daily, 0 Refills, Maintenance, 02/07/22 23:47:00 EDT, Tablet, ; Start Date: 02/07/22 Status: Ordered Orthopedic shoes Orthopedic shoes, See Instructions, # 1 each, Refills 0, Tot. Refills 0, Maintenance, Please provide patient with new orthopedic shoes with lift. DX: M21. 70, R29. 6 f please send to [phone] Thank you, Sanjay Carl DNP, [employer], 2... Start Date: 05/01/22 Status: Ordered Ozempic 2 mg/3 mL (0.25 mg or 0.5 mg dose) subcutaneous solution See Instructions, INJECT 0.5MG SUBCUTANEOUSLY EVERY 7 DAYS, # 3 mL, 0 Refills, Maintenance, 12/12/22 9:52:00 EDT, [facility] #[id number], 153, cm, 12/10/22 11:16:00 EDT, Height, 65, kg, 10/30/2317:20:00 EDT, Dry Weight Start Date: 12/12/22 Status: Ordered rollator rollator, See Instructions, # 1 each, Refills 0, Tot. Refills 0, Maintenance, Patient has unsteady gait, and hx of falls related to DDD, leg length disrepency, needs rollator to help with stability ICD 10: M21. 70, M51.36, R29.6 Thank you, Ad... Start Date: 03/07/22 Status: Ordered rOPINIRole 2 mg oral tablet 1 tablet, By Mouth, Daily at bedtime, # 90 tablet, 0 Refills, Maintenance, 11/29/22 7:33:00 EDT, [facility] #[id number], 160, cm, 11/27/22 11:52:00 EDT, Height, 65, kg, 10/30/22 18:20:00 EDT, Dry Weight Start Date: 11/29/22 Status: Ordered Sodium Chloride 1000 mg oral tablet 1 tablet = 1 Gm, By Mouth, Daily, 0 Refills, Maintenance, 02/07/22 23:47:00 EDT, ; Start Date: 02/07/22 Status: Ordered Vitamin D3 2000 intl units oral capsule 1 capsule, By Mouth, Daily, # 90 capsule, 3 Refills, Maintenance, 10/01/22 14:36:00 EDT, [facility] #[id number], 153, cm, 09/20/22 14:55:00 EDT, Height, 73.5, kg, 08/03/22 11:04:00 EDT, Dry Weight Start Date: 10/01/22 Status: Ordered Zoledronic Acid 5mg/100mL (IVPB (Premix) 5 mg, IV Infusion, Once, Maintenance, EVERY YEARS, 02/08/22 14:43:00 EDT Start Date: 02/08/22 Status: Ordered Problem List Condition Confirmation Course Effective Dates Status H ealth Status Informant Alcohol abuse Confirmed Active Basal cell carcinoma (BCC) Confirmed Active Oral thrush Confirmed Active Chronic diarrhea- followed by [facility] 1 Confirmed Active COPD - Chronic obstructive pulmonary disease- PFTs 2019 Confirmed Active COVID-19 2 Confirmed 04/06/22 Active Alcohol use Confirmed Active Cyst of right breast 3 Confirmed Active Right ovarian cyst Confirmed Active DDD (degenerative disc disease), lumbar Confirmed Active Depression Confirmed Active Generalized anxiety disorder Confirmed Active History of cocaine use Confirmed Active Hx of skin cancer, basal cell Confirmed Active Hyperlipidemia Confirmed Active Hypersomnia Confirmed Active Hyponatremia followed by [facility] Dr. Adam Briceno 4 Confirmed Active Hypothyroidism-follow ed by [facility] Confirmed Active Leg length inequality Confirmed Active Spondylosis of lumbar spine Confirmed Active Migraine Confirmed Active Stage 2 moderate COPD by GOLD classification Confirmed Active KAYKAY (obstructive sleep apnea) 5 Confirmed Active Overgrown toenails Confirmed Active Onychomycosis of toenail Confirmed Active Osteoporosis Confirmed Active Peripheral neuropathy Confirmed Active PTSD (post-traumatic stress disorder) Confirmed Active COPD with emphysema Confirmed Active Restless leg Confirmed Active Seizure disorder Confirmed Active Smoker Confirmed Active Substance abuse Confirmed Active Tinea pedis, right Confirmed Active Tobacco use Confirmed Active Urinary incontinence followed by [facility] Confirmed Active 1Last seen by GI in 2019 DrTrinaDesilets placed on Questran 2Problem added by Discern Expert 3on Mammo 09/2021 4D/T excess ADH per notes 5Severe on recent Polysomnogram Social History Social History Type Response Smoking Status 5-9 cigarettes (betw een 1/4 to 1/2 pack)/day in last 30 days; Tobacco user in household: Yes;Never; Type: Cigarettes; Interested in cessation: Yes entered on: 02/12/20 Sex Female Patient Care team information Care Team Personnel Name: Sanjay Carl NP Position: [facility] Associate Professional Member Role: PCP Address: Address: [address] [place] [address]- Name: Nicole Clark RN Position: [facility] AMB Nurse Member Role: Primary Care Nurse Name: Susy Key RN Position: [facility] SN RN Member Role: Primary Care Nurse Name: Xenia Schmid RN Position: [facility] RN Member Role: Primary Care Nurse Name: Roby Burton RN Position: [facility] RN Member Role: Primary Care Nurse Name: Adam Briceno MD Position: [facility] Renal MD Member Role: Lifetime Consulting Physician Address: Address: [address] [place] [address], [address] [facility] [address] Name: Loren Shaffer RN Position: S RN Member Role: Primary Care Nurse Name: Kelly Butt RN Position: S RN Member Role: Primary Care Nurse Name: Pauline Levy RN Position: S RN Member Role: Primary Care Nurse Name: Mamie Mccain RN Position: S RN Member Role: Primary Care Nurse Name: Viola Michelle Position: [facility] AMB Nurse Member Role: Lifetime Consulting Physician Name: Khadijah Stearns RN Position: [facility] SN RN Member Role: Primary Care Nurse Name: Torito Benoit MD Position: [facility] Renal MD Member Role: Lifetime Consulting Physician Address: Address: [address] [place] [address] [address] [facility] [place] [address]- Name: Katina Alanis RN Position: [facility] RN Member Role: Primary Care Nurse Name: Jennifer Ochoa MD Position: [facility] Physician -Physician Practices Member Role: Lifetime Consulting Physician Address: Address: [address] [place] [address]- Name: Sarabjit Cortez MD Position: [facility] Renal MD Member Role: Lifetime Consulting Physician Address: Address: [address] [place] [address] [facility] [place], [place] [address] Name: Pamela Wang RN Position: [facility] RN Member Role: Primary Care Nurse Name: Barbara Lee RN Position: S RN Member Role: Primary Care Nurse Name: Sharee Bui RN Position: S RN Member Role: Primary Care Nurse Name: Yessenia Arnold RN Position: S RN Member Role: Primary Care Nurse Care Team Related Persons Name: ERICA STEFANI Address: [place] [address]
--- OUTSIDE RECORDS SUMMARY | 2023-02-12 09:20 | XMS_ITS | Continuity of Care Document ---
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 sulfonamides hives Active sulfa drugs hives Active Ceclor hives Active Immunizations Given and Recorded Vaccine Date Status Refusal Reason influenza virus vaccine, inactivated 02/09/22 Give n [...] Bala rded influenza virus vaccine, inactivated 1 1/18/10 Gi yousif SARS-CoV-2 mRNA ([id number]-ieqx-kysmd) vax 11/03/21 Given SARS-CoV-2 mRNA (aghnmaj-haer-wpqcn) vax 11/03/21 Recorded SARS-CoV-2 (COVID-19) mRNA BNT-162b2 [...] H1N1, inactive(oldterm) 3 07/19/09 Given 1Result Comment: [id number] 2Result Comment: [id number] 3Result Comment: september 22 [id number] Medications albuterol CFC free 90 mcg/inh inhalation aerosol 2, puffs, Inhalation, Every 6 hours, PRN, # 1 each, Refills 9, Tot. Refills 9, Maintenance, 05/01/22 10:18:00 EST, Aerosol, Route to Pharmacy Electronically, [id number], [facility] #[id number], 153, cm, 05/01/22 9:47:00... Start Date: 05/01/22 [...] 12/05/21 18:14:00 EDT, Route to Pharmacy Electronically, [facility] #[id number], Partial fill upon patientrequest if the prescription is for a schedule II op... Start Date: 12/05/21 Status: Ordered atorvastatin 40 mg oral tablet 1 tablet, By Mouth, Daily, # 30 tablet, 11 Refills, Maintenance, 07/07/22 8:17:00 EDT, [facility] #[id number], 153, cm, 06/15/22 11:28:00 EST, Height, 71.1, [...] Start Date: 05/28/22 Status: Ordered CHOLESTYRAMINE 4GM [facility] PK 60S CHOLESTYRAMINE 4GM [facility] PK 60S, 1, pack/packet, By Mouth, 2 [...] 0 Refills, Maintenance, 02/10/22 17:06:00 EDT, Tablet, [facility] #[id number], Partial fill upon patient request if the prescription is for a schedule II opioid drug. Start Date: 02/10/22 Status: Ordered DilTIAZem (Eqv-Cardizem CD) 240 mg/24 hours oral capsule, extended release 1 capsule, By Mouth, Daily, # 90 capsule, 0 Refills, Maintenance, 06/18/22 14:31:00 EST, [facility] #[id number], 153, cm, 06/15/22 11:28:00 EST, Height, 71.1, kg, 05/01/22 9:47:00 EST, Dry Weight Start Date: 06/18/22 Status: Ordered duloxetine 60 mg oral enteric coated capsule 1 capsule = 60 mg, By Mouth, 2 times a day, 0 Refills, Maintenance, 02/07/22 23:47:00 EDT, EC Capsule, ; Start Date: 02/07/22 Status: Ordered fluticasone 50 mcg/inh nasal spray 1 sprays, Nares, Both, 2 times a day, 0 Refills, Maintenance, 02/07/22 23:47:00 EDT, Stephen, ; Start Date: 02/07/22 Status: Ordered gabapentin 600 mg oral tablet 1 tablet, By Mouth, 4 times a day, # 360 tablet, 0 Refills, Maintenance, 07/05/22 9:26:00 EDT, [facility] #[id number], 153, cm, 06/15/22 11:28:00 EST, Height, 71.1, kg, 05/01/22 9:47:00 EST, DryWeight Start Date: 07/05/22 Status: Ordered Incruse Ellipta 62.5 mcg/inh inhalation powder 1 puffs, Inhalation, Every 24 hours, APART., # 30 each, 6 Refills, Maintenance, 12/08/21 8:04:00 EDT, [facility] #[id number], 153, cm, 11/14/21 9:44:00 EDT, Height, 69.4, kg, 09/08/21 23:25:00 EDT, Dry Weight Start Date: 12/08/21 Stop Date: 12/09/21 Status: Ordered Left wrist splint cocked to [...] levothyroxine 150 mcg (0.15 mg) oral tablet 1 tablet = 150 mcg, By Mouth, Daily, Saturday - Saturday, 0 Refills, Maintenance, 02/07/22 23:47:00 EDT, Tablet, ; Start Date: 02/07/22 Status: Ordered loratadine 10 mg oral tablet 1, tablet, By Mouth, Daily, # 90 tablet, Refills 3, Maintenance, 04/19/22 9:44:00 EST, Route to Pharmacy Electronically, [facility] #[id number], 153, cm, 04/06/22 4:32:00 EST, Height, 68.3, kg, 04/05/22 16:36:00 EST, Dry Weight Start Date: 04/19/22 Status: Ordered meloxicam 15 mg oral tablet 1 tablet = 15 mg, By Mouth, Daily, 0 Refills, Maintenance, 02/07/22 23:48:00 EDT, Tablet, ; Start Date: 02/07/22 Status: Ordered methenamine hippurate 1 gm oral [...] 70, R29. 6 f please send to [phone] Thank you, Sanjay Carl DNP, SORTING MACHINE ATTENDANT-C, ... Start Date: 05/01/22 Status: Ordered Ozempic 2 mg/1.5 mL (0.25 mg or 0.5 mg dose) subcutaneous solution = 0.5 mg, Subcutaneous Infusion, Every week, # 4 each, 0 Refills, Maintenance, 06/15/22 12:10:00 EST, [facility] #[id number], Partial fill upon patient request if the prescription is for a schedule II opioid drug., 0.5 mg Subcutaneous Infusion Ev... Start Date: 06/15/22 Status: Ordered pantoprazole 40 mg oral delayed release tablet 1 tablet, By Mouth, Daily, # 90 tablet, 2 Refills, Maintenance, 12/08/21 8:04:00 EDT, 153, cm, 11/14/21 9:44:00 EDT, Height, 69.4, kg, 09/08/21 23:25:00 EDT, Dry Weight Start Date: 12/08/21 Status: Ordered rollator rollator, See Instructions, # [...] bedtime, # 90 tablet, 0 Refills, Maintenance, 02/09/22 7:37:00 EDT, [facility] #[id number], 153, cm, 01/26/22 11:24:00 EDT, Height, 69.4, kg, 09/08/21 23:25:00 EDT, Dry Weight Start Date: 02/09/22 Status: Ordered Sodium Chloride 1000 mg oral tablet 1 tablet = 1 Gm, By Mouth, Daily, 0 Refills, Maintenance, 02/07/22 23:47:00 EDT, ; Start Date: 02/07/22 Status: Ordered Vitamin D3 2000 intl units oral capsule 1 capsule = 50 mcg, By Mouth, Daily, Maintenance, 02/08/22 14:35:00 EDT, Capsule, ; Start Date: 02/08/22 Status: Ordered Zoledronic Acid 5mg/100mL (IVPB (Premix) 5 mg, IV Infusion, Once, Maintenance, EVERY YEARS, 02/08/22 14:43:00 EDT Start Date: 02/08/22 Status: Ordered Problem List Condition Confirmation Course Effective Dates Status H ealth Status Informant Alcohol abuse Confirmed Active Basal cell carcinoma (BCC) Confirmed Active Oral thrush Confirmed Active Chronic diarrhea Confirmed Active COPD - Chronic obstructive pulmonary disease Confirmed Active COVID-19 1 Confirmed 04/06/22 Active Alcohol use Confirmed Active Cyst of right breast 2 Confirmed Active DDD (degenerative disc disease), lumbar Confirmed Active Depression Confirmed Active Generalized anxiety disorder Confirmed Active History of cocaine use Confirmed Active Hx of skin cancer, basal cell Confirmed Active Hyperlipidemia Confirmed Active Hypersomnia Confirmed Active Hyponatremia Confirmed Active Hypothyroidism Confirmed Active Leg length inequality Confirmed Active Spondylosis of lumbar spine Confirmed Active Migraine Confirmed Active Stage 2 moderate COPD by GOLD classification Confirmed Active Obese class I Confirmed Active KAYKAY (obstructive sleep apnea) 3 Confirmed Active Overgrown toenails Confirmed Active Onychomycosis of toenail Confirmed Active Osteoporosis Confirmed Active Peripheral neuropathy Confirmed Active PTSD (post-traumatic stress disorder) Confirmed Active COPD with emphysema Confirmed Active Restless leg Confirmed Active Seizure disorder Confirmed Active Smoker Confirmed Active Substance abuse Confirmed Active Tinea pedis, right Confirmed Active Tobacco use Confirmed Active Urinary incontinence Confirmed Active 1Problem added by Discern Expert 2on Mammo 09/2021 3Severe on recent Polysomnogram Social History Social History Type Response Smoking Status 5-9 cigarettes (betw een 1/4 to 1/2 pack)/day in last 30 days; Tobacco user in household: Yes;Never; Type: Cigarettes; Interested in cessation: Yes entered on: 02/12/20 Sex Female Patient Care team information Care Team Personnel Name: Rose Marie Andersen RN Position: [facility] RN Member Role: Primary Care Nurse Name: Sanjay Carl NP Position: [facility] Associate Professional Member Role: PCP Address: Address: [address] [place] [address] Name: Nicole Clark RN [facility] RN Member Role: Primary Care Nurse Name: Susy Key RN Position: [facility] SN RN Member Role: Primary Care Nurse Name: Xenia Schmid RN Position: [facility] RN Member Role: Primary Care Nurse Name: Roby Burton RN Position: [facility] RN Member Role: Primary Care Nurse Name: Adam Briceno MD Position: [facility] Renal MD Member Role: Lifetime Consulting Physician Address: Address: [address] [place] [address], [address] [facility] [address] Name: Loren Shaffer RN Position: [facility] RN Member Role: Primary Care Nurse Name: Kelly Butt RN Position: [facility] RN Member Role: Primary Care Nurse Name: Pauline Levy RN Position: [facility] RN Member Role: Primary Care Nurse Name: Mamie Mccain RN Position: [facility] RN Member Role: Primary Care Nurse Name: Viola Michelle Position: [facility] PCO RN Member Role: Lifetime Consulting Physician Name: Torito Benoit MD Position: [facility] Renal MD Member Role: Lifetime Consulting Physician Address: Address: [address] [facility] [place], [place] [address]- Name: Katina Alanis RN Position: S RN Member Role: Primary Care Nurse Name: Jennifer Ochoa MD Position: [facility] Physician -Physician Practices Member Role: Lifetime Consulting Physician Address: Address: [address] [place] [address]- Name: Sarabjit Cortez MD Position: [facility] Renal MD Member Role: Lifetime Consulting Physician Address: Address: [address] [place] [address] [facility] [place] [address]- Name: Pamela Wang RN Position: S RN Member Role: Primary Care Nurse Name: Barbara Lee RN Position: S RN Member Role: Primary Care Nurse Name: Sharee Bui RN Position: S RN Member Role: Primary Care Nurse Name: Yessenia Arnold RN Position: S RN Member Role: Primary Care Nurse Care Team Related Persons Name: ERICA STEFANI Address: [address] [address]
--- OUTSIDE RECORDS SUMMARY | 2023-02-12 09:20 | XMS_ITS | Continuity of Care Document ---
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 sulfonamides hives Active sulfa drugs hives Active Ceclor hives Active Immunizations Given and Recorded Vaccine Date Status Refusal Reason [id number] 12y+ bivalent booster vax 03/01/22 Recorded influenza [...] inactivated 1 05/02/09 Gi yousif SARS-CoV-2 mRNA (upwzoqb-hgeo-cyfsx) vax 11/03/21 Given SARS-CoV-2 mRNA (zqojait-roqy-rjdps) vax 11/03/21 Recorded SARS-CoV-2 (COVID-19) mRNA BNT-162b2 [...] H1N1, inactive(oldterm) 3 07/19/09 Given 1Result Comment: [id number] 2Result Comment: [id number] 3Result Comment: september 22 [id number] Medications albuterol CFC free 90 mcg/inh inhalation aerosol 2, puffs, Inhalation, Every 6 hours, PRN, # 1 each, Refills 9, Tot. Refills 9, Maintenance, 05/01/22 10:18:00 EST, Aerosol, Route to Pharmacy Electronically, [id number], [facility] #[id number], 153, cm, 05/01/22 9:47:00... Start Date: 05/01/22 [...] 12/05/21 18:14:00 EDT, Route to Pharmacy Electronically, [facility] #[id number], Partial fill upon patientrequest if the prescription is for a schedule II op... Start Date: 12/05/21 Status: Ordered atorvastatin 40 mg oral tablet 1 tablet, By Mouth, Daily, # 30 tablet, 11 Refills, Maintenance, 07/07/22 8:17:00 EDT, [facility] #[id number], 153, cm, 06/15/22 11:28:00 EST, Height, 71.1, [...] Start Date: 05/28/22 Status: Ordered CHOLESTYRAMINE 4GM [facility] 60S CHOLESTYRAMINE 4GM [facility] PK 60S, 1, pack/packet, By Mouth, 2 [...] 0 Refills, Maintenance, 02/10/22 17:06:00 EDT, Tablet, [facility] #[id number], Partial fill upon patient request if the prescription is for a schedule II opioid drug. Start Date: 02/10/22 Status: Ordered DilTIAZem (Eqv-Cardizem CD) 240 mg/24 hours oral capsule, extended release 1 capsule, By Mouth, Daily, # 90 capsule, 0 Refills, Maintenance, 06/18/22 14:31:00 EST, [facility] #[id number], 153, cm, 06/15/22 11:28:00 EST, Height, 71.1, [...] day, 0 Refills, Maintenance, 02/07/22 23:47:00 EDT, [place], ; Start Date: 02/07/22 Status: Ordered gabapentin 600 mg oral tablet 1 tablet, By Mouth, 4 times a day, # 360 tablet, 0 Refills, Maintenance, 07/05/22 9:26:00 EDT, [facility] #[id number], 153, cm, 06/15/22 11:28:00 EST, Height, 71.1, kg, 05/01/22 9:47:00 EST, DryWeight Start Date: 07/05/22 Status: Ordered Incruse Ellipta 62.5 mcg/inh inhalation powder 1 puffs, Inhalation, Every 24 hours, APART., # 30 each, 6 Refills, Maintenance, 08/07/22 7:23:00 EDT, [facility] #[id number], 153, cm, 08/03/22 11:04:00 EDT, Height, 73.5, [...] Tablet, ; Start Date: 02/07/22 Status: Ordered lidocaine 4% topical cream 1 application, Topically, 3 times a day, for 14 days, # 133 Gm, 0 Refills, Acute 10/04/22 15:15:00 EDT, 09/20/22 15:15:00 EDT, Cream, [facility] #[id number], Partial fill upon patient request ifthe prescription is for a schedule II opioid drug.,... Start Date: 09/20/22 Stop Date: 10/04/22 Status: Ordered loratadine 10 mg oral tablet 1, tablet, By Mouth, Daily, # 90 tablet, Refills 1, Tot. Refills 1, Maintenance, 09/20/22 15:11:00 EDT, Route to Pharmacy Electronically, [facility] #[id number], 153, cm, 09/20/22 14:55:00 EDT, Height, 73.5, kg, 08/03/22 11:04:00 EDT, Dry Weight Start Date: 09/20/22 Status: Ordered meloxicam 15 mg oral tablet 1 tablet, By Mouth, Daily, # 90 tablet, 1 Refills, Maintenance, 08/07/22 7:23:00 EDT, [facility] #[id number], 153, cm, 08/03/22 11:04:00 EDT, Height, 73.5, [...] 70, R29. 6 f please send to [phone] Thank you, Sanjay Carl DNP, MEDICAL OFFICE MANAGER-C, 2... Start Date: 05/01/22 Status: Ordered Ozempic 2 mg/3 mL (0.25 mg or 0.5 mg dose) subcutaneous solution = 0.5 mg, Subcutaneous Infusion, Every 7 days, # 4 each, 3 Refills, Maintenance, 08/02/22 11:52:00 EDT, [facility] #[id number], Partial fill upon patient request if the prescription is for a schedule II opioid drug., 153, cm, 07/30/22 11:03:00 ED... Start Date: 08/02/22 Status: Ordered pantoprazole 40 mg oral delayed release tablet 1 tablet, By Mouth, Daily, # 90 tablet, 1 Refills, Maintenance, 08/07/22 7:23:00 EDT, 153, cm, 08/03/22 11:04:00 EDT, Height, 73.5, kg, 08/03/22 11:04:00 EDT, Dry Weight Start Date: 08/07/22 Status: Ordered rollator rollator, See Instructions, # [...] Mouth, Daily at bedtime, # 90 tablet, 1 Refills, Maintenance, 08/22/22 10:27:00 EDT, [facility] #[id number], 153, cm, 08/07/22 15:05:00 EDT, Height, 73.5, kg, 08/03/22 11:04:00 EDT,Dry Weight Start Date: 08/22/22 Status: Ordered Sodium Chloride 1000 mg oral [...] thrush Confirmed Active Chronic diarrhea- followed by [facility] 1 Confirmed Active COPD - Chronic [...] Briceno 4 Confirmed Active Hypothyroidism-follow ed by [facility] Endo Confirmed Active Leg length inequality Confirmed [...] Personnel Name: Rose Marie Andersen RN Position: S RN Member Role: Primary Care Nurse Name: Sanjay Carl NP Position: S Associate Professional Member Role: PCP Address: Address: [address] [place] [address]- Name: Nicole Clark RN Position: [facility] AMB Nurse Member Role: Primary Care Nurse Name: Susy Key RN Position: [facility] SN RN Member Role: Primary Care Nurse Name: Xenia Schmid RN Position: S RN Member Role: Primary Care Nurse Name: Roby Burton RN Position: [facility] RN Member Role: Primary Care Nurse Name: Adam Briceno MD Position: [facility] Renal MD Member Role: Lifetime Consulting Physician Address: Address: [address] [place] [address], [address] [facility] [place] [address]- [place] Name: Loren Shaffer RN Position: [facility] RN Member Role: Primary Care Nurse Name: Kelly Butt RN Position: [facility] RN Member Role: Primary Care Nurse Name: Pauline Levy RN Position: [facility] ED RN W/OE and Tasks Member Role: Primary Care Nurse Name: Mamie Mccain RN Position: [facility] RN Member Role: Primary Care Nurse Name: Viola Michelle Position: [facility] AMB Nurse Member Role: Lifetime Consulting Physician Name: Torito Benoit MD Position: [facility] Renal MD Member Role: Lifetime Consulting Physician Address: Address: [address] [place] [address] [address] [facility] [place] [address]- [place] Name: Katina Alanis RN Position: [facility] RN Member Role: Primary Care Nurse Name: Jennifer Ochoa MD Position: [facility] Physician -Physician Practices Member Role: Lifetime Consulting Physician Address: Address: [address] [place] [address]- [place] Name: Sarabjit Cortez MD Position: [facility] Renal MD Member Role: Lifetime Consulting Physician Address: Address: [address] [place] [address] [facility] [place] [address]- [place] Name: Pamela Wang RN Position: [facility] RN Member Role: Primary Care Nurse Name: Barbara Lee RN Position: S RN Member Role: Primary Care Nurse Name: Sharee Bui RN Position: S RN Member Role: Primary Care Nurse Name: Yessenia Arnold RN Position: S RN Member Role: Primary Care Nurse Care Team Related Persons Name: ERICA STEFANI Address: [place] [address]
--- OUTSIDE RECORDS SUMMARY | 2023-02-12 09:21 | XMS_ITS | Continuity of Care Document ---
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 sulfonamides hives Active sulfa drugs hives Active Ceclor hives Active Immunizations Given and Recorded Vaccine Date Status Refusal Reason [id number] 12y+ bivalent booster vax 03/01/22 Recorded influenza [...] inactivated 1 05/02/09 Gi yousif SARS-CoV-2 mRNA (faifoss-dswn-nxdnw) vax 11/03/21 Given SARS-CoV-2 mRNA (txyzjwk-xcas-xxwjw) vax 11/03/21 Recorded SARS-CoV-2 (COVID-19) mRNA BNT-162b2 [...] H1N1, inactive(oldterm) 3 07/19/09 Given 1Result Comment: [id number] 2Result Comment: [id number] 3Result Comment: september 22 [id number] Medications albuterol CFC free 90 mcg/inh inhalation aerosol 2, puffs, Inhalation, Every 6 hours, PRN, # 1 each, Refills 9, Tot. Refills 9, Maintenance, 05/01/22 10:18:00 EST, Aerosol, Route to Pharmacy Electronically, [id number], [facility] #[id number], 153, cm, 05/01/22 9:47:00... Start Date: 05/01/22 [...] 12/05/21 18:14:00 EDT, Route to Pharmacy Electronically, [facility] #[id number], Partial fill upon patientrequest if the prescription is for a schedule II op... Start Date: 12/05/21 Status: Ordered atorvastatin 40 mg oral tablet 1 tablet, By Mouth, Daily, # 30 tablet, 11 Refills, Maintenance, 07/07/22 8:17:00 EDT, [facility] #[id number], 153, cm, 06/15/22 11:28:00 EST, Height, 71.1, [...] 4GM [facility] POW PK 60S CHOLESTYRAMINE 4GM [facility] PK 60S, 1, pack/packet, By Mouth, 2 times a day, # 60 each, 0 Refills, Maintenance, 05/28/22 8:55:00 EST, 153, cm, 05/01/22 9:47:00 EST, Height, 71.1, kg, 05/01/22 9:47:00EST, Dry Weight Start Date: 05/28/22 Status: Ordered CHOLESTYRAMINE 4GM [facility] PK 60S CHOLESTYRAMINE 4GM [facility] PK 60S, 1, pack/packet, By Mouth, [...] 0 Refills, Maintenance, 02/10/22 17:06:00 EDT, Tablet, [facility] #[id number], Partial fill upon patient request if the prescription is for a schedule II opioid drug. Start Date: 02/10/22 Status: Ordered DilTIAZem (Eqv-Cardizem CD) 240 mg/24 hours oral capsule, extended release 1 capsule, By Mouth, Daily, # 90 capsule, 0 Refills, Maintenance, 06/18/22 14:31:00 EST, [facility] #[id number], 153, cm, 06/15/22 11:28:00 EST, Height, 71.1, [...] day, 0 Refills, Maintenance, 02/07/22 23:47:00 EDT, [place], ; Start Date: 02/07/22 Status: Ordered gabapentin 600 mg oral tablet 1 tablet, By Mouth, 4 times a day, # 360 tablet, 0 Refills, Maintenance, 07/05/22 9:26:00 EDT, [facility] #[id number], 153, cm, 06/15/22 11:28:00 EST, Height, 71.1, kg, 05/01/22 9:47:00 EST, DryWeight Start Date: 07/05/22 Status: Ordered Incruse Ellipta 62.5 mcg/inh inhalation powder 1 puffs, Inhalation, Every 24 hours, APART., # 30 each, 6 Refills, Maintenance, 08/07/22 7:23:00 EDT, [facility] #[id number], 153, cm, 08/03/22 11:04:00 EDT, Height, 73.5, [...] 10/04/22 15:15:00 EDT, 09/20/22 15:15:00 EDT, Cream, [facility] #[id number], Partial fill upon patient request ifthe prescription is for a schedule II opioid drug.,... Start Date: 09/20/22 Stop Date: 10/04/22 Status: Ordered loratadine 10 mg oral tablet 1, tablet, By Mouth, Daily, # 90 tablet, Refills 1, Tot. Refills 1, Maintenance, 09/20/22 15:11:00 EDT, Route to Pharmacy Electronically, [facility] #[id number], 153, cm, 09/20/22 14:55:00 EDT, Height, 73.5, kg, 08/03/22 11:04:00 EDT, Dry Weight Start Date: 09/20/22 Status: Ordered meloxicam 15 mg oral tablet 1 tablet, By Mouth, Daily, # 90 tablet, 1 Refills, Maintenance, 08/07/22 7:23:00 EDT, [facility] #[id number], 153, cm, 08/03/22 11:04:00 EDT, Height, 73.5, [...] 70, R29. 6 f please send to [phone] Thank you, Sanjay Carl DNP, MANAGER OCCUPATIONAL-C, 2... Start Date: 05/01/22 Status: Ordered Ozempic 2 mg/3 mL (0.25 mg or 0.5 mg dose) subcutaneous solution = 0.5 mg, Subcutaneous Infusion, Every 7 days, # 4 each, 3 Refills, Maintenance, 08/02/22 11:52:00 EDT, [facility] #[id number], Partial fill upon patient request if the [...] tablet, 1 Refills, Maintenance, 08/22/22 10:27:00 EDT, [facility] #[id number], 153, cm, 08/07/22 15:05:00 EDT, Height, 73.5, [...] thrush Confirmed Active Chronic diarrhea- followed by [facility] GI 1 Confirmed Active COPD - [...] Briceno 4 Confirmed Active Hypothyroidism-follow ed by [facility] Endo Confirmed Active Leg length inequality [...] Active 1Last seen by GI in [address]Desilets placed on Questran 2Problem added by Discern [...] Personnel Name: Rose Marie Andersen RN Position: [facility] RN Member Role: Primary Care Nurse Name: Sanjay Carl NP Position: [facility] Associate Professional Member Role: PCP Address: Address: [address] [place], [place] [address], [place] [address]- [place] Name: Nicole Clark RN Position: [facility] AMB Nurse Member Role: Primary Care Nurse Name: Susy Key RN Position: [facility] SN RN Member Role: Primary Care Nurse Name: [place]enia Schmid RN Position: S RN Member Role: Primary Care Nurse Name: Roby Burton RN Position: S RN Member Role: Primary Care Nurse Name: Adam Briceno MD Position: [facility] Renal MD Member Role: Lifetime Consulting Physician Address: Address: [address] [place] [address], [address] [facility] [place] [address]- [place] Name: Loren Shaffer RN Position: S RN Member Role: Primary Care Nurse Name: Kelly Butt RN Position: [facility] RN Member Role: Primary Care Nurse Name: Pauline Levy RN Position: S RN Member Role: Primary Care Nurse Name: Mamie Mccain RN Position: S RN Member Role: Primary Care Nurse Name: Viola Michelle Position: [facility] AMB Nurse Member Role: Lifetime Consulting Physician Name: Torito Benoit MD Position: [facility] Renal MD Member Role: Lifetime Consulting Physician Address: Address: [address] [place] [address] [address] [facility] [place] [address]- [place] Name: Katina Alanis RN Position: [facility] RN Member Role: Primary Care Nurse Name: Jennifer Ochoa MD Position: [facility] Physician -Physician Practices Member Role: Lifetime Consulting Physician Address: Address: [address] [place] [address]- [place] Name: Sarabjit Cortez MD Position: [facility] Renal MD Member Role: Lifetime Consulting Physician Address: Address: [address] [place] [address] [facility] [place] [address]- [place] Name: Pamela Wang RN Position: S RN Member Role: Primary Care Nurse Name: Barbara Lee RN Position: S RN Member Role: Primary Care Nurse Name: Sharee Bui RN Position: S RN Member Role: Primary Care Nurse Name: Yessenia Arnold RN Position: S RN Member Role: Primary Care Nurse Care Team Related Persons Name: ERICA STEFANI Address: [place] [address]
--- OUTSIDE RECORDS SUMMARY | 2023-02-12 09:21 | XMS_ITS | Continuity of Care Document ---
Author Name Unknown Organization [facility] Address [address] [place] [address]- Care Team Providers Care College Admissions Counselor Name Role Phone Siddhartha MURILLO, Sanjay Primary Care Physician [phone] [facility]counter [facility] Date[facility]s): 08/[facility]/22 - 08/31/[address] [address]- Allergies, Adverse Reactions, Alerts Substance Reaction Severity [...] inactivated 1 05/02/09 Gi yousif SARS-CoV-2 mRNA (xumejfi-mvql-bwfxj) vax 11/03/21 Given SARS-CoV-2 mRNA (rguzpsv-onmj-kctgl) vax 11/03/21 Recorded SARS-CoV-2 (COVID-19) mRNA BNT-162b2 [...] H1N1, inactive(oldterm) 3 07/19/09 Given 1Result Comment: [id number] 2Result Comment: [id number] 3Result Comment: september 22 [id number] Medications albuterol CFC free 90 mcg/inh inhalation aerosol 2, puffs, Inhalation, Every 6 hours, PRN, # 1 each, Refills 9, Tot. Refills 9, Maintenance, 05/01/22 10:18:00 EST, Aerosol, Route to Pharmacy Electronically, [id number], [facility] #[id number], 153, cm, 05/01/22 9:47:00... Start Date: 05/01/22 [...] 12/05/21 18:14:00 EDT, Route to Pharmacy Electronically, [facility] #[id number], Partial fill upon patientrequest if the prescription is for a schedule II op... Start Date: 12/05/21 Status: Ordered atorvastatin 40 mg oral tablet 1 tablet, By Mouth, Daily, # 30 tablet, 11 Refills, Maintenance, 07/07/22 8:17:00 EDT, [facility] #[id number], 153, cm, 06/15/22 11:28:00 EST, Height, 71.1, [...] Start Date: 05/28/22 Status: Ordered CHOLESTYRAMINE 4GM [facility] POW PK 60S CHOLESTYRAMINE 4GM [facility] POW PK 60S, 1, pack/packet, By Mouth, [...] 0 Refills, Maintenance, 02/10/22 17:06:00 EDT, Tablet, [facility] #[id number], Partial fill upon patient request if the prescription is for a schedule II opioid drug. Start Date: 02/10/22 Status: Ordered DilTIAZem (Eqv-Cardizem CD) 240 mg/24 hours oral capsule, extended release 1 capsule, By Mouth, Daily, # 90 capsule, 0 Refills, Maintenance, 06/18/22 14:31:00 EST, [facility] #[id number], 153, cm, 06/15/22 11:28:00 EST, Height, 71.1, [...] day, 0 Refills, Maintenance, 02/07/22 23:47:00 EDT, [place], ; Start Date: 02/07/22 Status: Ordered gabapentin 600 mg oral tablet 1 tablet, By Mouth, 4 times a day, # 360 tablet, 0 Refills, Maintenance, 07/05/22 9:26:00 EDT, [facility] #[id number], 153, cm, 06/15/22 11:28:00 EST, Height, 71.1, kg, 05/01/22 9:47:00 EST, DryWeight Start Date: 07/05/22 Status: Ordered Incruse Ellipta 62.5 mcg/inh inhalation powder 1 puffs, Inhalation, Every 24 hours, APART., # 30 each, 6 Refills, Maintenance, 08/07/22 7:23:00 EDT, [facility] #[id number], 153, cm, 08/03/22 11:04:00 EDT, Height, 73.5, [...] 04/19/22 9:44:00 EST, Route to Pharmacy Electronically, [facility] #[id number], 153, cm, 04/06/22 4:32:00 EST, Height, 68.3, kg, 04/05/22 16:36:00 EST, Dry Weight Start Date: 04/19/22 Status: Ordered meloxicam 15 mg oral tablet 1 tablet, By Mouth, Daily, # 90 tablet, 1 Refills, Maintenance, 08/07/22 7:23:00 EDT, [facility] #[id number], 153, cm, 08/03/22 11:04:00 EDT, Height, 73.5, [...] 70, R29. 6 f please send to [phone] Thank you, Sanjay Carl DNP, LINSEED OIL PRESS TENDER-C, ... Start Date: 05/01/22 Status: Ordered Ozempic 2 mg/3 mL (0.25 mg or 0.5 mg dose) subcutaneous solution = 0.5 mg, Subcutaneous Infusion, Every 7 days, # 4 each, 3 Refills, Maintenance, 08/02/22 11:52:00 EDT, [facility] #[id number], Partial fill upon patient request if the [...] tablet, 1 Refills, Maintenance, 08/22/22 10:27:00 EDT, [facility] #[id number], 153, cm, 08/07/22 15:05:00 EDT, Height, 73.5, [...] Cyst of right breast 2 Confirmed Active Right ovarian cyst Confirmed Active [...] Personnel Name: Rose Marie Andersen RN Position: [facility] RN Member Role: Primary Care Nurse Name: Sanjay Carl NP Position: [facility] Associate Professional Member Role: PCP Address: Address: [address] [place] [address] Name: Nicole Clark RN Position: [facility] PCO RN Member Role: Primary Care Nurse Name: Susy Key RN Position: [facility] SN RN Member Role: Primary Care Nurse Name: [place] Schmid RN Position: [facility] RN Member Role: Primary Care Nurse Name: Roby Burton RN Position: [facility] RN Member Role: Primary Care Nurse Name: Adam Briceno MD Position: [facility] Renal MD Member Role: Lifetime Consulting Physician Address: Address: [address] [place] [address], [address] [facility] [address] Name: Loren Shaffer RN Position: S RN Member Role: Primary Care Nurse Name: Kelly Butt RN Position: S RN Member Role: Primary Care Nurse Name: Pauline Levy RN Position: S RN Member Role: Primary Care Nurse Name: Mamie Mccain RN Position: S RN Member Role: Primary Care Nurse Name: Viola Michelle Position: [facility] PCO RN Member Role: Lifetime Consulting Physician Name: Torito Benoit MD Position: [facility] Renal MD Member Role: Lifetime Consulting Physician Address: Address: [address] [place] [address] [address] [facility] [place] [address]- Name: Katina Alanis RN Position: [facility] RN Member Role: Primary Care Nurse Name: Jennifer Ochoa MD Position: [facility] Physician -Physician Practices Member Role: Lifetime Consulting Physician Address: Address: [address] [place] [address]- Name: Sarabjit Cortez MD Position: [facility] Renal MD Member Role: Lifetime Consulting Physician Address: Address: [address] [place] [address] [facility] [place] [address]- Name: Pamela Wang RN Position: [facility] RN Member Role: Primary Care Nurse Name: Barbara Lee RN Position: S RN Member Role: Primary Care Nurse Name: Sharee Bui RN Position: [facility] RN Member Role: Primary Care Nurse Name: Yessenia Arnold RN Position: [facility] RN Member Role: Primary Care Nurse Care Team Related Persons Name: ERICA STEFANI Address: home [address] [place] [address]
--- OUTSIDE RECORDS SUMMARY | 2023-02-12 09:21 | XMS_ITS | Continuity of Care Document ---
Author Name Unknown Organization [facility] Address [address] [place] [address]- Care Team Providers Care Director Oracle Database Name Role Phone Sanjay Carl NP Primary Care Physician [facility]counter [facility] Date[facility]s): 06/18/22 - 07/18/[address] [address]- Allergies, Adverse Reactions, Alerts Substance Reaction Severity [...] inactivated 1 1/18/10 Gi yousif SARS-CoV-2 mRNA (qzsehmj-typg-cactd) vax 11/03/21 Given SARS-CoV-2 mRNA (blfmpws-uppn-wltqv) vax 11/03/21 Recorded SARS-CoV-2 (COVID-19) mRNA BNT-162b2 [...] H1N1, inactive(oldterm) 3 07/19/09 Given 1Result Comment: [id number] 2Result Comment: [id number] 3Result Comment: september 22 [id number] Medications albuterol CFC free 90 mcg/inh inhalation aerosol 2, puffs, Inhalation, Every 6 hours, PRN, # 1 each, Refills 9, Tot. Refills 9, Maintenance, 05/01/22 10:18:00 EST, Aerosol, Route to Pharmacy Electronically, [id number], [facility] #[id number], 153, cm, 05/01/22 9:47:00... Start Date: 05/01/22 [...] 12/05/21 18:14:00 EDT, Route to Pharmacy Electronically, [facility] #[id number], Partial fill upon patientrequest if the prescription is for a schedule II op... Start Date: 12/05/21 Status: Ordered atorvastatin 40 mg oral tablet 1 tablet, By Mouth, Daily, # 30 tablet, 11 Refills, Maintenance, 07/07/22 8:17:00 EDT, [facility] #[id number], 153, cm, 06/15/22 11:28:00 EST, Height, 71.1, [...] Start Date: 05/28/22 Status: Ordered CHOLESTYRAMINE 4GM [facility] PK 60S CHOLESTYRAMINE 4GM [facility] PK 60S, 1, pack/packet, By [...] 0 Refills, Maintenance, 02/10/22 17:06:00 EDT, Tablet, [facility] #[id number], Partial fill upon patient request if the prescription is for a schedule II opioid drug. Start Date: 02/10/22 Status: Ordered DilTIAZem (Eqv-Cardizem CD) 240 mg/24 hours oral capsule, extended release 1 capsule, By Mouth, Daily, # 90 capsule, 0 Refills, Maintenance, 06/18/22 14:31:00 EST, [facility] #[id number], 153, cm, 06/15/22 11:28:00 EST, Height, 71.1, [...] day, 0 Refills, Maintenance, 02/07/22 23:47:00 EDT, [place], ; Start Date: 02/07/22 Status: Ordered gabapentin 600 mg oral tablet 1 tablet, By Mouth, 4 times a day, # 360 tablet, 0 Refills, Maintenance, 07/05/22 9:26:00 EDT, [facility] #[id number], 153, cm, 06/15/22 11:28:00 EST, Height, 71.1, kg, 05/01/22 9:47:00 EST, DryWeight Start Date: 07/05/22 Status: Ordered Incruse Ellipta 62.5 mcg/inh inhalation powder 1 puffs, Inhalation, Every 24 hours, APART., # 30 each, 6 Refills, Maintenance, 12/08/21 8:04:00 EDT, [facility] #[id number], 153, cm, 11/14/21 9:44:00 EDT, Height, 69.4, [...] 04/19/22 9:44:00 EST, Route to Pharmacy Electronically, [facility] #[id number], 153, cm, 04/06/22 4:32:00 EST, Height, 68.3, [...] 70, R29. 6 f please send to [phone] Thank you, Sanjay Carl DNP, FORGE PRESS OPERATOR-C, ... Start Date: 05/01/22 Status: Ordered Ozempic 2 mg/1.5 mL (0.25 mg or 0.5 mg dose) subcutaneous solution = 0.5 mg, Subcutaneous Infusion, Every week, # 4 each, 0 Refills, Maintenance, 06/15/22 12:10:00 EST, [facility] #08651, Partial fill upon patient request if the [...] tablet, 0 Refills, Maintenance, 02/09/22 7:37:00 EDT, [facility] #[id number], 153, cm, 01/26/22 11:24:00 EDT, Height, 69.4, [...] Personnel Name: Rose Marie Andersen RN Position: [facility] RN Member Role: Primary Care Nurse Name: Sanjay Carl NP Position: [facility] Associate Professional Member Role: PCP Address: Address: [address] [place] [address] Name: Nicole Clark RN [facility] RN Member Role: Primary Care Nurse Name: Susy Key RN Position: [facility] SN RN Member Role: Primary Care Nurse Name: [place] Schmid RN Position: [facility] RN Member Role: Primary Care Nurse Name: Roby Burton RN Position: [facility] RN Member Role: Primary Care Nurse Name: Adam Briceno MD Position: [facility] Renal MD Member Role: Lifetime Consulting Physician Address: Address: [address] [place] [address], [address] [facility] [address] Name: Loren Shaffer RN Position: [facility] RN Member Role: Primary Care Nurse Name: Kelly Butt RN Position: [facility] RN Member Role: Primary Care Nurse Name: Pauline Levy RN Position: [facility] RN Member Role: Primary Care Nurse Name: Mamie Mccain RN Position: [facility] RN Member Role: Primary Care Nurse Name: Viola Michelle Position: [facility] PCO RN Member Role: Lifetime Consulting Physician Name: Torito Benoit MD Position: [facility] Renal MD Member Role: Lifetime Consulting Physician Address: Address: [address] [facility] [address] [facility] [place] [place] [address]- Name: Katina Alanis RN Position: S RN Member Role: Primary Care Nurse Name: Jennifer Ochoa MD Position: [facility] Physician -Physician Practices Member Role: Lifetime Consulting Physician Address: Address: [address] [place] [address]- Name: Sarabjit Cortez MD Position: [facility] Renal MD Member Role: Lifetime Consulting Physician Address: Address: [address] [place] [address] [facility] [place] [address]- Name: Pamela Wang RN Position: S RN Member Role: Primary Care Nurse Name: Barbara Lee RN Position: S RN Member Role: Primary Care Nurse Name: Sharee Bui RN Position: S RN Member Role: Primary Care Nurse Name: Yessenia Arnold RN Position: S RN Member Role: Primary Care Nurse Care Team Related Persons Name: ERICA STEFANI Address: [address] [address]
--- OUTSIDE RECORDS SUMMARY | 2023-02-12 09:22 | XMS_ITS | Continuity of Care Document ---
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 Refills 9, Maintenance, 05/01/22 10:18:00 EST, Aerosol, Route to Pharmacy Electronically, [id number], [facility] #[id number], 153, cm, 05/01/22 9:47:00... Start Date: 05/01/22 [...] 12/05/21 18:14:00 EDT, Route to Pharmacy Electronically, [facility] #[id number], Partial fill upon patientrequest if the prescription is for a schedule II op... Start Date: 12/05/21 Status: Ordered atorvastatin 40 mg oral tablet 1 tablet, By Mouth, Daily, # 30 tablet, 11 Refills, Maintenance, 07/07/22 8:17:00 EDT, [facility] #[id number], 153, cm, 06/15/22 11:28:00 EST, Height, 71.1, [...] 4GM LGHT POW PK 60S CHOLESTYRAMINE 4GM [facility] PK 60S, 1, pack/packet, By [...] 0 Refills, Maintenance, 02/10/22 17:06:00 EDT, Tablet, [facility] #[id number], Partial fill upon patient request if the prescription is for a schedule II opioid drug. Start Date: 02/10/22 Status: Ordered DilTIAZem (Eqv-Cardizem CD) 240 mg/24 hours oral capsule, extended release 1 capsule, By Mouth, Daily, # 90 capsule, 0 Refills, Maintenance, 06/18/22 14:31:00 EST, [facility] #[id number], 153, cm, 06/15/22 11:28:00 EST, Height, 71.1, [...] day, 0 Refills, Maintenance, 02/07/22 23:47:00 EDT, [place], ; Start Date: 02/07/22 Status: Ordered gabapentin 600 mg oral tablet 1 tablet, By Mouth, 4 times a day, # 360 tablet, 0 Refills, Maintenance, 07/05/22 9:26:00 EDT, [facility] #[id number], 153, cm, 06/15/22 11:28:00 EST, Height, 71.1, kg, 05/01/22 9:47:00 EST, DryWeight Start Date: 07/05/22 Status: Ordered Incruse Ellipta 62.5 mcg/inh inhalation powder 1 puffs, Inhalation, Every 24 hours, APART., # 30 each, 6 Refills, Maintenance, 12/08/21 8:04:00 EDT, [facility] #[id number], 153, cm, 11/14/21 9:44:00 EDT, Height, 69.4, [...] 04/19/22 9:44:00 EST, Route to Pharmacy Electronically, [facility] #[id number], 153, cm, 04/06/22 4:32:00 EST, Height, 68.3, [...] 70, R29. 6 f please send to [phone] Thank you, Sanjay Carl DNP, TRACTOR TECHNICIAN-C, ... Start Date: 05/01/22 Status: Ordered Ozempic 2 mg/1.5 mL (0.25 mg or 0.5 mg dose) subcutaneous solution = 0.5 mg, Subcutaneous Infusion, Every week, # 4 each, 0 Refills, Maintenance, 06/15/22 12:10:00 EST, [facility] #[id number], Partial fill upon patient request if the [...] tablet, 0 Refills, Maintenance, 02/09/22 7:37:00 EDT, [facility] #[id number], 153, cm, 01/26/22 11:24:00 EDT, Height, 69.4, [...] Care team information Care Team Personnel Name: Ros eMarie Andersen RN Position: [facility] RN Member Role: Primary Care Nurse Name: Sanjay Carl NP Position: [facility] Associate Professional Member Role: PCP Address: Address: [address] [place] [address] Name: Nicole Clark RN Position: [facility] RN Member Role: Primary Care Nurse Name: Susy Key RN Position: [facility] SN RN Member Role: Primary Care Nurse Name: Xenia Schmid RN Position: [facility] RN Member Role: Primary Care Nurse Name: Roby Burton RN Position: [facility] RN Member Role: Primary Care Nurse Name: Adam Briceno MD Position: [facility] Renal MD Member Role: Lifetime Consulting Physician Address: Address: [address] [place] [address], [address] [facility] [address] Name: Loren Shaffer RN Position: [facility] RN Member Role: Primary Care Nurse Name: Kelly Butt RN Position: [facility] RN Member Role: Primary Care Nurse Name: Pauline Levy RN Position: [facility] RN Member Role: Primary Care Nurse Name: Mamie Mccain RN Position: [facility] RN Member Role: Primary Care Nurse Name: Viola Michelle Position: [facility] PCO RN Member Role: Lifetime Consulting Physician Name: Torito Benoit MD Position: [facility] Renal MD Member Role: Lifetime Consulting Physician Address: Address: [address] [facility] [address] [facility] [place] [place] [address]- Name: Katina Alanis RN Position: S RN Member Role: Primary Care Nurse Name: Jennifer Ochoa MD Position: [facility] Physician -Physician Practices Member Role: Lifetime Consulting Physician Address: Address: [address] [place] [address]- Name: Sarabjit Cortez MD Position: [facility] Renal MD Member Role: Lifetime Consulting Physician Address: Address: [address] [place] [address] [facility] [place] [address]- Name: Pamela Wang RN Position: S RN Member Role: Primary Care Nurse Name: Barbara Lee RN Position: S RN Member Role: Primary Care Nurse Name: Sharee Bui RN Position: S RN Member Role: Primary Care Nurse Name: Yessenia Arnold RN Position: S RN Member Role: Primary Care Nurse Care Team Related Persons Name: ERICA STEFANI Address: home [address] [place] [id number]
--- OUTSIDE RECORDS SUMMARY | 2023-02-12 09:22 | XMS_ITS | Continuity of Care Document ---
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 sulfonamides hives Active sulfa drugs hives Active Ceclor hives Active Immunizations Given and Recorded Vaccine Date Status Refusal Reason [id number] 12y+ bivalent booster vax 03/01/22 Recorded influenza [...] 01/28/14 Bala rded influenza virus vaccine, inactivated 1/24/14 Bala rded influenza virus vaccine, inactivated 05/08/13 Bala rded influenza virus vaccine, inactivated 1 05/02/09 Gi yousif SARS-CoV-2 mRNA (ufkrjmk-fxav-kzgkc) vax 11/03/21 Given SARS-CoV-2 mRNA (fiqbent-rqhn-mnfpt) vax 11/03/21 Recorded SARS-CoV-2 (COVID-19) mRNA BNT-162b2 [...] H1N1, inactive(oldterm) 3 07/19/09 Given 1Result Comment: [id number] 2Result Comment: [id number] 3Result Comment: september 22 [id number] Medications albuterol CFC free 90 mcg/inh inhalation aerosol 2, puffs, Inhalation, Every 6 hours, PRN, # 1 each, Refills 9, Tot. Refills 9, Maintenance, 05/01/22 10:18:00 EST, Aerosol, Route to Pharmacy Electronically, [id number], [facility] #[id number], 153, cm, 05/01/22 9:47:00... Start Date: 05/01/22 [...] 12/05/21 18:14:00 EDT, Route to Pharmacy Electronically, [facility] #[id number], Partial fill upon patientrequest if the prescription is for a schedule II op... Start Date: 12/05/21 Status: Ordered atorvastatin 40 mg oral tablet 1 tablet, By Mouth, Daily, # 30 tablet, 11 Refills, Maintenance, 07/07/22 8:17:00 EDT, [facility] #[id number], 153, cm, 06/15/22 11:28:00 EST, Height, 71.1, [...] Start Date: 02/08/22 Status: Ordered CHOLESTYRAMINE 4GM [facility] PK 60S CHOLESTYRAMINE 4GM [facility] PK 60S, 1, pack/packet, By Mouth, 2 times a day, # 60 each, 0 Refills, Maintenance, 05/28/22 8:55:00 EST, 153, cm, 05/01/22 9:47:00 EST, Height, 71.1, kg, 05/01/22 9:47:00EST, Dry Weight Start Date: 05/28/22 Status: Ordered CHOLESTYRAMINE 4GM [facility] PK 60S CHOLESTYRAMINE 4GM [facility] PK 60S, 1, pack/packet, By [...] 0 Refills, Maintenance, 02/10/22 17:06:00 EDT, Tablet, [facility] #[id number], Partial fill upon patient request if the prescription is for a schedule II opioid drug. Start Date: 02/10/22 Status: Ordered DilTIAZem (Eqv-Cardizem CD) 240 mg/24 hours oral capsule, extended release 1 capsule, By Mouth, Daily, # 90 capsule, 0 Refills, Maintenance, 12/03/22 21:45:00 EDT, [facility] #[id number], 160, cm, 11/27/22 11:52:00 EDT, Height, 65, [...] day, 0 Refills, Maintenance, 02/07/22 23:47:00 EDT, [place], ; Start Date: 02/07/22 Status: Ordered gabapentin 600 mg oral tablet 1 tablet, By Mouth, 4 times a day, # 360 tablet, 1 Refills, Maintenance, 12/27/22 7:05:00 EDT, [facility] #[id number], 153, cm, 12/10/22 11:16:00 EDT, Height, 65, kg, 10/30/22 18:20:00 EDT, Dry Weight Start Date: 12/27/22 Status: Ordered Incruse Ellipta 62.5 mcg/inh inhalation powder 1 puffs, Inhalation, Every 24 hours, APART., # 30 each, 6 Refills, Maintenance, 08/07/22 7:23:00 EDT, [facility] #[id number], 153, cm, 08/03/22 11:04:00 EDT, Height, 73.5, [...] days weekly and 2 tabs on te , # 104 each, 3 Refills, Maintenance, 11/29/22 12:53:00 EDT, Tablet, [facility] #[id number], Partial fill upon patient request if the prescription is for a schedule I... Start Date: 11/29/22 Status: Ordered loratadine 10 mg oral tablet 1, tablet, By Mouth, Daily, # 90 tablet, Refills 1, Tot. Refills 1, Maintenance, 09/20/22 15:11:00 EDT, Route to Pharmacy Electronically, [facility] #[id number], 153, cm, 09/20/22 14:55:00 EDT, Height, 73.5, kg, 08/03/22 11:04:00 EDT, Dry Weight Start Date: 09/20/22 Status: Ordered meloxicam 15 mg oral tablet 1 tablet, By Mouth, Daily, # 90 tablet, 0 Refills, Maintenance, 01/08/23 16:19:00 EDT, [facility] #[id number], 153, cm, 12/10/22 11:16:00 EDT, Height, 65, kg, 10/30/22 18:20:00 EDT, Dry Weight Start Date: 01/08/23 Status: Ordered methenamine hippurate 1 gm oral [...] 70, R29. 6 f please send to [phone] Thank you, Sanjay Carl DNP, HEALTH RESEARCHER-C, ... Start Date: 05/01/22 Status: Ordered Ozempic 2 mg/3 mL (0.25 mg or 0.5 mg dose) subcutaneous solution See Instructions, INJECT 0.5MG SUBCUTANEOUSLY EVERY 7 DAYS, # 3 mL, 0 Refills, Maintenance, 12/12/22 9:52:00 EDT, [facility] #[id number], 153, cm, 12/10/22 11:16:00 EDT, Height, 65, [...] tablet, 0 Refills, Maintenance, 11/29/22 7:33:00 EDT, [facility] #[id number], 160, cm, 11/27/22 11:52:00 EDT, Height, 65, [...] capsule, 3 Refills, Maintenance, 10/01/22 14:36:00 EDT, [facility] #[id number], 153, cm, 09/20/22 14:55:00 EDT, Height, 73.5, kg, 08/03/22 11:04:00 EDT, Dry Weight Start Date: 10/01/22 Status: Ordered Zoledronic Acid 5mg/100mL (IVPB (Premix) 5 mg, IV Infusion, Once, Maintenance, EVERY YEARS, 02/08/22 14:43:00 EDT Start Date: 02/08/22 Status: Ordered Problem List Condition Confirmation Course Effective Dates Status H ealth Status Informant Alcohol abuse Confirmed Active Basal cell carcinoma (BCC) 1 Confirmed Active Oral thrush Confirmed Active Chronic diarrhea- followed by [facility] 2 Confirmed Active COPD - Chronic obstructive pulmonary disease- PFTs 2019 Confirmed Active COVID-19 3 Confirmed 04/06/22 Active Alcohol use Confirmed Active Cyst of right breast 4 Confirmed Active Right ovarian cyst Confirmed Active DDD (degenerative disc disease), lumbar Confirmed Active Depression Confirmed Active Generalized anxiety disorder Confirmed Active History of cocaine use Confirmed Active Hx of skin cancer, basal cell Confirmed Active Hyperlipidemia Confirmed Active Hypersomnia Confirmed Active Hyponatremia followed by [facility] Dr. Adam Briceno 5 Confirmed Active Hypothyroidism-follow ed by [facility] Confirmed Active Leg length inequality Confirmed Active Spondylosis of lumbar spine Confirmed Active Migraine Confirmed Active Stage 2 moderate COPD by GOLD classification Confirmed Active KAYKAY (obstructive sleep apnea) 6 Confirmed Active Overgrown toenails Confirmed Active Onychomycosis of toenail Confirmed Active Osteoporosis Confirmed Active Peripheral neuropathy Confirmed Active PTSD (post-traumatic stress disorder) Confirmed Active COPD with emphysema Confirmed Active Restless leg Confirmed Active Seizure disorder Confirmed Active Smoker Confirmed Active Substance abuse Confirmed Active Tinea pedis, right Confirmed Active Tobacco use Confirmed Active Urinary incontinence followed by [facility] Confirmed Active 1Followed by [facility] 2Last seen by GI in 2019 Desilets placed on Questran 3Problem added by Discern Expert 4on Mammo 09/2021 5D/T excess ADH per notes 6Severe on recent Polysomnogram Social History Social History Type Response Smoking Status 5-9 cigarettes (betw een 1/4 to 1/2 pack)/day in last 30 days; Tobacco user in household: Yes;Never; Type: Cigarettes; Interested in cessation: Yes entered on: 02/12/20 Sex Female Patient Care team information Care Team Personnel Name: Sanjay Carl NP Position: [facility] Associate Professional Member Role: PCP Address: Address: [address] [place] [address]- Name: Nicole Clark RN Position: [facility] GARCÍA Nurse Member Role: Primary Care Nurse Name: Susy Key RN Position: [facility] RN Member Role: Primary Care Nurse Name: Xenia Schmid RN Position: [facility] RN Member Role: Primary Care Nurse Name: Roby Burton RN Position: [facility] RN Member Role: Primary Care Nurse Name: Adam Briceno MD Position: [facility] Renal MD Member Role: Lifetime Consulting Physician Address: Address: [address] [place] [address], [address] [facility] [place] [address]- [place] Name: Loren Shaffer RN Position: S RN Member Role: Primary Care Nurse Name: Kelly Butt RN Position: S RN Member Role: Primary Care Nurse Name: Pauline Levy RN Position: S RN Member Role: Primary Care Nurse Name: Mamie Mccain RN Position: S RN Member Role: Primary Care Nurse Name: Viola Michelle Position: [facility] AMB Nurse Member Role: Lifetime Consulting Physician Name: Khadijah Stearns RN Position: [facility] SN RN Member Role: Primary Care Nurse Name: Torito Benoit MD Position: [facility] Renal MD Member Role: Lifetime Consulting Physician Address: Address: [address] [place] [address] [address] [facility] [place] [address]- Name: Katina Alanis RN Position: [facility] RN Member Role: Primary Care Nurse Name: Jennifer Ochoa MD Position: [facility] Physician -Physician Practices Member Role: Lifetime Consulting Physician Address: Address: [address] [place] [address]- [place] Name: Sarabjit Cortez MD Position: [facility] Renal MD Member Role: Lifetime Consulting Physician Address: Address: [address] [place] [address] [facility] [place] [address]- Name: Pamela Wang RN Position: S RN Member Role: Primary Care Nurse Name: Barbara Lee RN Position: S RN Member Role: Primary Care Nurse Name: Sharee Bui RN Position: S RN Member Role: Primary Care Nurse Name: Yessenia Arnold RN Position: S RN Member Role: Primary Care Nurse Care Team Related Persons Name: STEFANI MALDONADO Address: [place] [address]
--- OUTSIDE RECORDS SUMMARY | 2023-02-12 09:22 | XMS_ITS | Continuity of Care Document ---
Author Name Unknown Organization [facility] Address [address] [place] [address]- Care Team Providers Care Slash Trimmer Name Role Phone Siddhartha MURLILO, Sanjay Primary Care Physician [facility] Date[facility]s): 08/08/22 - 09/07/[address] [address]- Allergies, Adverse Reactions, Alerts Substance Reaction Severity [...] inactivated 1 05/02/09 Gi yousif SARS-CoV-2 mRNA (sjwpvvd-nkaz-ymeei) vax 11/03/21 Given SARS-CoV-2 mRNA (kbytvlq-ydrg-khhuc) vax 11/03/21 Recorded SARS-CoV-2 (COVID-19) mRNA BNT-162b2 [...] H1N1, inactive(oldterm) 3 07/19/09 Given 1Result Comment: [id number] 2Result Comment: [id number] 3Result Comment: september 22 [id number] Medications albuterol CFC free 90 mcg/inh inhalation aerosol 2, puffs, Inhalation, Every 6 hours, PRN, # 1 each, Refills 9, Tot. Refills 9, Maintenance, 05/01/22 10:18:00 EST, Aerosol, Route to Pharmacy Electronically, [id number], [facility] #[id number], 153, cm, 05/01/22 9:47:00... Start Date: 05/01/22 [...] 12/05/21 18:14:00 EDT, Route to Pharmacy Electronically, [facility] #[id number], Partial fill upon patientrequest if the prescription is for a schedule II op... Start Date: 12/05/21 Status: Ordered atorvastatin 40 mg oral tablet 1 tablet, By Mouth, Daily, # 30 tablet, 11 Refills, Maintenance, 07/07/22 8:17:00 EDT, [facility] #[id number], 153, cm, 06/15/22 11:28:00 EST, Height, 71.1, [...] 4GM LG[facility] P[facility] PK 60S CHOLESTYRAMINE 4GM [facility] PK 60S, 1, pack/packet, By Mouth, [...] 0 Refills, Maintenance, 02/10/22 17:06:00 EDT, Tablet, [facility] #[id number], Partial fill upon patient request if the prescription is for a schedule II opioid drug. Start Date: 02/10/22 Status: Ordered DilTIAZem (Eqv-Cardizem CD) 240 mg/24 hours oral capsule, extended release 1 capsule, By Mouth, Daily, # 90 capsule, 0 Refills, Maintenance, 06/18/22 14:31:00 EST, [facility] #[id number], 153, cm, 06/15/22 11:28:00 EST, Height, 71.1, [...] day, 0 Refills, Maintenance, 02/07/22 23:47:00 EDT, [place], ; Start Date: 02/07/22 Status: Ordered gabapentin 600 mg oral tablet 1 tablet, By Mouth, 4 times a day, # 360 tablet, 0 Refills, Maintenance, 07/05/22 9:26:00 EDT, [facility] #[id number], 153, cm, 06/15/22 11:28:00 EST, Height, 71.1, kg, 05/01/22 9:47:00 EST, DryWeight Start Date: 07/05/22 Status: Ordered Incruse Ellipta 62.5 mcg/inh inhalation powder 1 puffs, Inhalation, Every 24 hours, APART., # 30 each, 6 Refills, Maintenance, 08/07/22 7:23:00 EDT, [facility] #[id number], 153, cm, 08/03/22 11:04:00 EDT, Height, 73.5, [...] 04/19/22 9:44:00 EST, Route to Pharmacy Electronically, [facility] #[id number], 153, cm, 04/06/22 4:32:00 EST, Height, 68.3, kg, 04/05/22 16:36:00 EST, Dry Weight Start Date: 04/19/22 Status: Ordered meloxicam 15 mg oral tablet 1 tablet, By Mouth, Daily, # 90 tablet, 1 Refills, Maintenance, 08/07/22 7:23:00 EDT, [facility] #[id number], 153, cm, 08/03/22 11:04:00 EDT, Height, 73.5, [...] 70, R29. 6 f please send to [phone] Thank you, Sanjay Carl DNP, SET UP / OPERATOR-C, ... Start Date: 05/01/22 Status: Ordered Ozempic 2 mg/3 mL (0.25 mg or 0.5 mg dose) subcutaneous solution = 0.5 mg, Subcutaneous Infusion, Every 7 days, # 4 each, 3 Refills, Maintenance, 08/02/22 11:52:00 EDT, [facility] #[id number], Partial fill upon patient request if the [...] tablet, 1 Refills, Maintenance, 08/22/22 10:27:00 EDT, [facility] #[id number], 153, cm, 08/07/22 15:05:00 EDT, Height, 73.5, [...] Personnel Name: Rose Marie Andersen RN Position: [facility] RN Member Role: Primary Care Nurse Name: Sanjay Carl NP Position: [facility] Associate Professional Member Role: PCP Address: Address: [address] [place] [address] Name: Nicole Clark RN Position: [facility] PCO RN Member Role: Primary Care Nurse Name: Susy Key RN Position: [facility] SN RN Member Role: Primary Care Nurse Name: Xenia Schmid RN Position: [facility] RN Member Role: Primary Care Nurse Name: Roby Burton RN Position: [facility] RN Member Role: Primary Care Nurse Name: Adam Briceno MD Position: [facility] Renal MD Member Role: Lifetime Consulting Physician Address: Address: [address] [place] [address], [address] [facility] [address] Name: Loren Shaffer RN Position: S RN Member Role: Primary Care Nurse Name: Kelly Butt RN Position: [facility] RN Member Role: Primary Care Nurse Name: Pauline Levy RN Position: S RN Member Role: Primary Care Nurse Name: Mamie Mccain RN Position: S RN Member Role: Primary Care Nurse Name: Viola Michelle Position: [facility] PCO RN Member Role: Lifetime Consulting Physician Name: Torito Benoit MD Position: [facility] Renal MD Member Role: Lifetime Consulting Physician Address: Address: [address] [place] [address] [address] [facility], [place] [address]- Name: Katina Alanis RN Position: [facility] RN Member Role: Primary Care Nurse Name: Jennifer Ochoa MD Position: [facility] Physician -Physician Practices Member Role: Lifetime Consulting Physician Address: Address: [address] [place] [address]- Name: Sarabjit Cortez MD Position: [facility] Renal MD Member Role: Lifetime Consulting Physician Address: Address: [address] [place] [address] [facility] [address] Name: Pamela Wang RN Position: [facility] RN Member Role: Primary Care Nurse Name: Barbara Lee RN Position: S RN Member Role: Primary Care Nurse Name: Sharee Bui RN Position: [facility] RN Member Role: Primary Care Nurse Name: Yessenia Arnold RN Position: S RN Member Role: Primary Care Nurse Care Team Related Persons Name: ERICA STEFANI Address: [place] [address]
--- OUTSIDE RECORDS SUMMARY | 2023-02-12 09:23 | XMS_ITS | Continuity of Care Document ---
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 sulfonamides hives Active sulfa drugs hives Active Ceclor hives Active Immunizations Given and Recorded Vaccine Date Status Refusal Reason [id number] 12y+ bivalent booster vax 03/01/22 Recorded influenza [...] inactivated 1 05/02/09 Gi yousif SARS-CoV-2 mRNA (qupviik-lxrh-ovqoc) vax 11/03/21 Given SARS-CoV-2 mRNA (yzmmqoo-pqjg-dkhdh) vax 11/03/21 Recorded SARS-CoV-2 (COVID-19) mRNA BNT-162b2 [...] H1N1, inactive(oldterm) 3 07/19/09 Given 1Result Comment: [id number] 2Result Comment: [id number] 3Result Comment: september 22 [id number] Medications albuterol CFC free 90 mcg/inh inhalation aerosol 2, puffs, Inhalation, Every 6 hours, PRN, # 1 each, Refills 9, Tot. Refills 9, Maintenance, 05/01/22 10:18:00 EST, Aerosol, Route to Pharmacy Electronically, [id number], [facility] #[id number], 153, cm, 05/01/22 9:47:00... Start Date: 05/01/22 [...] 12/05/21 18:14:00 EDT, Route to Pharmacy Electronically, [facility] #[id number], Partial fill upon patientrequest if the prescription is for a schedule II op... Start Date: 12/05/21 Status: Ordered atorvastatin 40 mg oral tablet 1 tablet, By Mouth, Daily, # 30 tablet, 11 Refills, Maintenance, 07/07/22 8:17:00 EDT, [facility] #[id number], 153, cm, 06/15/22 11:28:00 EST, Height, 71.1, [...] 4GM LGHT POW PK 60S CHOLESTYRAMINE 4GM [facility] [...] 0 Refills, Maintenance, 02/10/22 17:06:00 EDT, Tablet, [facility] #[id number], Partial fill upon patient request if the prescription is for a schedule II opioid drug. Start Date: 02/10/22 Status: Ordered DilTIAZem (Eqv-Cardizem CD) 240 mg/24 hours oral capsule, extended release 1 capsule, By Mouth, Daily, # 90 capsule, 0 Refills, Maintenance, 12/03/22 21:45:00 EDT, [facility] #[id number], 160, cm, 11/27/22 11:52:00 EDT, Height, 65, [...] day, 0 Refills, Maintenance, 02/07/22 23:47:00 EDT, [place], ; Start Date: 02/07/22 Status: Ordered gabapentin 600 mg oral tablet 1 tablet, By Mouth, 4 times a day, # 360 tablet, 1 Refills, Maintenance, 12/27/22 7:05:00 EDT, [facility] #[id number], 153, cm, 12/10/22 11:16:00 EDT, Height, 65, kg, 10/30/22 18:20:00 EDT, Dry Weight Start Date: 12/27/22 Status: Ordered Incruse Ellipta 62.5 mcg/inh inhalation powder 1 puffs, Inhalation, Every 24 hours, APART., # 30 each, 6 Refills, Maintenance, 08/07/22 7:23:00 EDT, [facility] #[id number], 153, cm, 08/03/22 11:04:00 EDT, Height, 73.5, [...] By Mouth Daily 6 days weekly and 1.5 tabs on te day, # 98 each, 3 Refills, Maintenance, 11/29/22 12:53:00 EDT, Tablet, [facility] #30958, Partial fill upon patient request if the prescription is for a schedule... Start Date: 11/29/22 Status: Ordered loratadine 10 mg oral tablet 1, tablet, By Mouth, Daily, # 90 tablet, Refills 1, Tot. Refills 1, Maintenance, 09/20/22 15:11:00 EDT, Route to Pharmacy Electronically, [facility] #[id number], 153, cm, 09/20/22 14:55:00 EDT, Height, 73.5, kg, 08/03/22 11:04:00 EDT, Dry Weight Start Date: 09/20/22 Status: Ordered meloxicam 15 mg oral tablet 1 tablet, By Mouth, Daily, # 90 tablet, 0 Refills, Maintenance, 01/08/23 16:19:00 EDT, [facility] #84905, 153, cm, 12/10/22 11:16:00 EDT, Height, 65, [...] 70, R29. 6 f please send to [phone] Thank you, Sanjay Carl DNP, COAT FINISHER-C, ... Start Date: 05/01/22 Status: Ordered Ozempic 2 mg/3 mL (0.25 mg or 0.5 mg dose) subcutaneous solution See Instructions, INJECT 0.5MG SUBCUTANEOUSLY EVERY 7 DAYS, # 3 mL, 1 Refills, Maintenance, 01/14/23 4:24:00 EDT, [facility] #77134, 153, cm, 12/10/22 11:16:00 EDT, Height, 65, kg, 10/30/2317:20:00 EDT, Dry Weight Start Date: 01/14/23 Status: Ordered rollator rollator, See Instructions, # [...] tablet, 0 Refills, Maintenance, 11/29/22 7:33:00 EDT, [facility] #[id number], 160, cm, 11/27/22 11:52:00 EDT, Height, 65, [...] capsule, 3 Refills, Maintenance, 10/01/22 14:36:00 EDT, [facility] #65140, 153, cm, 09/20/22 14:55:00 EDT, Height, 73.5, [...] thrush Confirmed Active Chronic diarrhea- followed by [facility] GI 2 Confirmed Active COPD - [...] Briceno 5 Confirmed Active Hypothyroidism-follow ed by [facility] Endo Confirmed Active Leg length inequality [...] surg 2Last seen by GI in 2019 placed on Questran 3Problem added by Discern [...] Personnel Name: Rose Marie Andersen RN Position: [facility] RN Member Role: Primary Care Nurse Name: Sanjay Carl NP Position: [facility] Associate Professional Member Role: PCP Address: Address: [address] [place] [address]- Name: Nicole Clark RN Position: [facility] AMB Nurse Member Role: Primary Care Nurse Name: Susy Key RN Position: [facility] RN Member Role: Primary Care Nurse Name: Xenia Schmid RN Position: [facility] RN Member Role: Primary Care Nurse Name: Roby Burton RN Position: [facility] RN Member Role: Primary Care Nurse Name: Adam Briceno MD Position: [facility] Renal MD Member Role: Lifetime Consulting Physician Address: Address: [address] [place] [address], [facility] [address] [facility] [place] [address]- Name: Loren Shaffer RN Position: S RN Member Role: Primary Care Nurse Name: Kelly Butt RN Position: S RN Member Role: Primary Care Nurse Name: Pauline Levy RN Position: S RN Member Role: Primary Care Nurse Name: Mamie Mccain RN Position: S RN Member Role: Primary Care Nurse Name: Viola Michelle Position: [facility] AMB Nurse Member Role: Lifetime Consulting Physician Name: Hardeep Colby MD Position: [facility] Renal MD Member Role: Lifetime Consulting Physician Address: Address: [address] [place] [address] [facility] [place] [address]- Name: Khadijah Stearns RN Position: [facility] SN RN Member Role: Primary Care Nurse Name: Torito Benoit MD Position: [facility] Renal MD Member Role: Lifetime Consulting Physician Address: Address: [address] [place] [address] [address] [facility] [place] [address]- Name: Katina Alanis RN Position: [facility] RN Member Role: Primary Care Nurse Name: Jennifer Ochoa MD Position: [facility] Physician -Physician Practices Member Role: Lifetime Consulting Physician Address: Address: [address] [place] [address]- Name: Sarabjit Cortez MD Position: [facility] Renal MD Member Role: Lifetime Consulting Physician Address: Address: [address] [place] [address] [facility] [place] [address]- Name: Pamela Wang RN Position: [facility] RN Member Role: Primary Care Nurse Name: Barbara Lee RN Position: S RN Member Role: Primary Care Nurse Name: Sharee Bui RN Position: S RN Member Role: Primary Care Nurse Name: Yessenia Arnold RN Position: S RN Member Role: Primary Care Nurse Care Team Related Persons Name: STEFANI MALDONADO Address: [place] [address]
--- OUTSIDE RECORDS SUMMARY | 2023-02-12 09:23 | XMS_ITS | Continuity of Care Document ---
Author Name Unknown Organization [facility] Address [address] [place] [address]- Care Team Providers Care Tripe Scraper Name Role Phone Siddhartha MURILLO, Sanjay Primary Care Physician [phone] Encounter [facility] ACCT R [id number] Date(s): 09/20/22 - 10/20/[address] [address]- Attending Physician: AdmtrRadha Admitting Physician: AdmtrRadha Referring Physician: Admtr, Ar8 Allergies, Adverse Reactions, Alerts Substance Reaction Severity Status sulfonamides hives Active penicillin hives Active succinylcholine 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 sulfa drugs hives Active Ceclor hives Active Immunizations Given and Recorded Vaccine Date Status Refusal Reason [id number] 12y+ bivalent booster vax 03/01/22 Recorded influenza [...] inactivated 1 05/02/09 Gi yousif SARS-CoV-2 mRNA (naxdvnl-nurz-fbdaj) vax 11/03/21 Given SARS-CoV-2 mRNA (pmyjmqi-vgdo-biodj) vax 11/03/21 Recorded SARS-CoV-2 (COVID-19) mRNA BNT-162b2 [...] H1N1, inactive(oldterm) 3 07/19/09 Given 1Result Comment: [id number] 2Result Comment: [id number] 3Result Comment: september 22 [id number] Medications albuterol CFC free 90 mcg/inh inhalation aerosol 2, puffs, Inhalation, Every 6 hours, PRN, # 1 each, Refills 9, Tot. Refills 9, Maintenance, 05/01/22 10:18:00 EST, Aerosol, Route to Pharmacy Electronically, [id number], [facility] #[id number], 153, cm, 05/01/22 9:47:00... Start Date: 05/01/22 [...] 12/05/21 18:14:00 EDT, Route to Pharmacy Electronically, [facility] #[id number], Partial fill upon patientrequest if the prescription is for a schedule II op... Start Date: 12/05/21 Status: Ordered atorvastatin 40 mg oral tablet 1 tablet, By Mouth, Daily, # 30 tablet, 11 Refills, Maintenance, 07/07/22 8:17:00 EDT, [facility] #[id number], 153, cm, 06/15/22 11:28:00 EST, Height, 71.1, [...] 4GM LGHT POW PK 60S CHOLESTYRAMINE 4GM [facility] POW PK 60S, 1, pack/packet, By Mouth, 2 times a day, # 60 each, 0 Refills, Maintenance, 05/28/22 8:55:00 EST, 153, cm, 05/01/22 9:47:00 EST, Height, 71.1, kg, 05/01/22 9:47:00EST, Dry Weight Start Date: 05/28/22 Status: Ordered CHOLESTYRAMINE 4GM LG[facility] POW PK 60S CHOLESTYRAMINE 4GM [facility] POW PK 60S, 1, pack/packet, By [...] 0 Refills, Maintenance, 02/10/22 17:06:00 EDT, Tablet, [facility] #[id number], Partial fill upon patient request if the prescription is for a schedule II opioid drug. Start Date: 02/10/22 Status: Ordered DilTIAZem (Eqv-Cardizem CD) 240 mg/24 hours oral capsule, extended release 1 capsule, By Mouth, Daily, # 90 capsule, 0 Refills, Maintenance, 06/18/22 14:31:00 EST, [facility] #[id number], 153, cm, 06/15/22 11:28:00 EST, Height, 71.1, [...] day, 0 Refills, Maintenance, 02/07/22 23:47:00 EDT, [facility], ; Start Date: 02/07/22 Status: Ordered gabapentin 600 mg oral tablet 1 tablet, By Mouth, 4 times a day, # 360 tablet, 0 Refills, Maintenance, 09/30/22 17:19:00 EDT, [facility] #[id number], 153, cm, 09/20/22 14:55:00 EDT, Height, 73.5, kg, 08/03/22 11:04:00 EDT, Dry Weight Start Date: 09/30/22 Status: Ordered Incruse Ellipta 62.5 mcg/inh inhalation powder 1 puffs, Inhalation, Every 24 hours, APART., # 30 each, 6 Refills, Maintenance, 08/07/22 7:23:00 EDT, [facility] #[id number], 153, cm, 08/03/22 11:04:00 EDT, Height, 73.5, [...] 09/20/22 15:11:00 EDT, Route to Pharmacy Electronically, [facility] #[id number], 153, cm, 09/20/22 14:55:00 EDT, Height, 73.5, kg, 08/03/22 11:04:00 EDT, Dry Weight Start Date: 09/20/22 Status: Ordered meloxicam 15 mg oral tablet 1 tablet, By Mouth, Daily, # 90 tablet, 1 Refills, Maintenance, 08/07/22 7:23:00 EDT, [facility] #[id number], 153, cm, 08/03/22 11:04:00 EDT, Height, 73.5, [...] 70, R29. 6 f please send to [phone] Thank you, Sanjay Carl DNP, [employer] ASSISTED LIVING-C, 2... Start Date: 05/01/22 Status: Ordered Ozempic 2 mg/3 mL (0.25 mg or 0.5 mg dose) subcutaneous solution = 0.5 mg, Subcutaneous Infusion, Every 7 days, # 4 each, 3 Refills, Maintenance, 08/02/22 11:52:00 EDT, [facility] #[id number], Partial fill upon patient request if the [...] Ad... Start Date: 03/07/22 Status: Ordered rOPINIRole 0.5 mg oral tablet 1 tablet, By Mouth, Daily at bedtime, # 90 tablet, 0 Refills, Maintenance, 10/18/22 15:17:00 EDT, [facility][id number], 153, cm, 09/20/22 14:55:00 EDT, Height, 73.5, kg, 08/03/22 11:04:00 EDT,Dry Weight Start Date: 10/18/22 Status: Ordered Sodium Chloride 1000 mg oral tablet 1 tablet = 1 Gm, By Mouth, Daily, 0 Refills, Maintenance, 02/07/22 23:47:00 EDT, ; Start Date: 02/07/22 Status: Ordered Vitamin D3 2000 intl units oral capsule 1 capsule, By Mouth, Daily, # 90 capsule, 3 Refills, Maintenance, 10/01/22 14:36:00 EDT, [facility] #[id number], 153, cm, 09/20/22 14:55:00 EDT, Height, 73.5, [...] thrush Confirmed Active Chronic diarrhea- followed by [facility] GI 1 Confirmed Active COPD - [...] Briceno 4 Confirmed Active Hypothyroidism-follow ed by [facility] Endo Confirmed Active Leg length inequality [...] Active 1Last seen by GI in 2019 Desilets placed on Questran 2Problem added by Discern [...] Team Personnel Name: Sanjay Carl NP Position: [facility] Associate Professional Member Role: PCP Address: Address: [address] [place] [id number] Name: Nicole Clark RN Position: [facility] GARCÍA Nurse Member Role: Primary Care Nurse Name: Susy Key RN Position: [facility] SN RN Member Role: Primary Care Nurse Name: Xenia Schmid RN Position: S RN Member Role: Primary Care Nurse Name: Roby Burton RN Position: S RN Member Role: Primary Care Nurse Name: Adam Briceno MD Position: [facility] Renal MD Member Role: Lifetime Consulting Physician Address: Address: [address] [place] [address], [address] [facility] [place] [address]- Name: Loren Shaffer RN Position: S RN Member Role: Primary Care Nurse Name: Kelly Butt RN Position: S RN Member Role: Primary Care Nurse Name: Pauline Levy RN Position: S RN Member Role: Primary Care Nurse Name: Mamie Mccain RN Position: S RN Member Role: Primary Care Nurse Name: Viola Michelle Position: [facility] AMB Nurse Member Role: Lifetime Consulting Physician Name: Torito Benoit MD Position: [facility] Renal MD Member Role: Lifetime Consulting Physician Address: Address: [address] [place] [address] [address] [facility] [place] [address]- [place] Name: Katina Alanis RN Position: [facility] RN Member Role: Primary Care Nurse Name: Jennifer Ochoa MD Position: [facility] Physician -Physician Practices Member Role: Lifetime Consulting Physician Address: Address: [address] [place] [address]- [place] Name: Sarabjit Cortez MD Position: [facility] Renal MD Member Role: Lifetime Consulting Physician Address: Address: [address] [place] [address] [facility] [place] [address]- Name: Pamela Wang RN Position: S RN Member Role: Primary Care Nurse Name: Barbara Lee RN Position: S RN Member Role: Primary Care Nurse Name: Sharee Bui RN Position: S RN Member Role: Primary Care Nurse Name: Yessenia Arnold RN Position: S RN Member Role: Primary Care Nurse Care Team Related Persons Name: STEFANI MALDONADO Address: [place] [address]
--- OUTSIDE RECORDS SUMMARY | 2023-02-12 09:23 | XMS_ITS | Continuity of Care Document ---
Author Name Unknown Organization [facility] Address [address] [place] [address]- Care Team Providers Care Senior Java Software Developer Name Role Phone Siddhartha MURILLO, Sanjay Primary Care Physician Encounter [facility] Date(s): 06/11/22 - 07/11/22 [facility] [address] [place] [id number] Allergies, Adverse Reactions, Alerts Substance Reaction Severity [...] inactivated 1 05/02/09 Gi yousif SARS-CoV-2 mRNA (viluaoa-sqwc-zjfre) vax 11/03/21 Given SARS-CoV-2 mRNA (wjrntni-mzlj-jxijs) vax 11/03/21 Recorded SARS-CoV-2 (COVID-19) mRNA BNT-162b2 [...] H1N1, inactive(oldterm) 3 07/19/09 Given 1Result Comment: [id number] 2Result Comment: [id number] 3Result Comment: september 22 [id number] Medications albuterol CFC free 90 mcg/inh inhalation aerosol 2, puffs, Inhalation, Every 6 hours, PRN, # 1 each, Refills 9, Tot. Refills 9, Maintenance, 05/01/22 10:18:00 EST, Aerosol, Route to Pharmacy Electronically, [id number], [facility] #[id number], 153, cm, 05/01/22 9:47:00... Start Date: 05/01/22 [...] 12/05/21 18:14:00 EDT, Route to Pharmacy Electronically, [facility] #07655, Partial fill upon patientrequest if the prescription is for a schedule II op... Start Date: 12/05/21 Status: Ordered atorvastatin 40 mg oral tablet 1 tablet, By Mouth, Daily, # 30 tablet, 11 Refills, Maintenance, 07/07/22 8:17:00 EDT, [facility] #01947, 153, cm, 06/15/22 11:28:00 EST, Height, 71.1, [...] 4GM LGHT POW PK 60S CHOLESTYRAMINE 4GM [facility] POW PK 60S, 1, pack/packet, By [...] 0 Refills, Maintenance, 02/10/22 17:06:00 EDT, Tablet, [facility] #[id number], Partial fill upon patient request if the prescription is for a schedule II opioid drug. Start Date: 02/10/22 Status: Ordered DilTIAZem (Eqv-Cardizem CD) 240 mg/24 hours oral capsule, extended release 1 capsule, By Mouth, Daily, # 90 capsule, 0 Refills, Maintenance, 06/18/22 14:31:00 EST, [facility] #94247, 153, cm, 06/15/22 11:28:00 EST, Height, 71.1, [...] day, 0 Refills, Maintenance, 02/07/22 23:47:00 EDT, [facility], ; Start Date: 02/07/22 Status: Ordered gabapentin 600 mg oral tablet 1 tablet, By Mouth, 4 times a day, # 360 tablet, 0 Refills, Maintenance, 07/05/22 9:26:00 EDT, [facility] #[id number], 153, cm, 06/15/22 11:28:00 EST, Height, 71.1, kg, 05/01/22 9:47:00 EST, DryWeight Start Date: 07/05/22 Status: Ordered Incruse Ellipta 62.5 mcg/inh inhalation powder 1 puffs, Inhalation, Every 24 hours, APART., # 30 each, 6 Refills, Maintenance, 12/08/21 8:04:00 EDT, [facility] #[id number], 153, cm, 11/14/21 9:44:00 EDT, Height, 69.4, [...] 04/19/22 9:44:00 EST, Route to Pharmacy Electronically, [facility] #[id number], 153, cm, 04/06/22 4:32:00 EST, Height, 68.3, kg, 12/22/22 16:36:00 EST, Dry Weight Start Date: 04/19/22 [...] 70, R29. 6 f please send to [phone] Thank you, Sanjay Carl DNP, [employer] CANE PLANTING EQUIPMENT OPERATOR-C, ... Start Date: 05/01/22 Status: Ordered Ozempic 2 mg/1.5 mL (0.25 mg or 0.5 mg dose) subcutaneous solution = 0.5 mg, Subcutaneous Infusion, Every week, # 4 each, 0 Refills, Maintenance, 06/15/22 12:10:00 EST, [facility] #[id number], Partial fill upon patient request if the [...] tablet, 0 Refills, Maintenance, 02/09/22 7:37:00 EDT, [facility] #[id number], 153, cm, 01/26/22 11:24:00 EDT, Height, 69.4, [...] Personnel Name: Rose Marie Andersen RN Position: [facility] RN Member Role: Primary Care Nurse Name: Sanjay Carl NP Position: [facility] Associate Professional Member Role: PCP Address: Address: [address] [place] [address] Name: Nicole Clark RN Position: [facility] RN Member Role: Primary Care Nurse Name: Susy Key RN Position: [facility] SN RN Member Role: Primary Care Nurse Name: Xenia Schmid RN Position: [facility] RN Member Role: Primary Care Nurse Name: Roby Burton RN Position: [facility] RN Member Role: Primary Care Nurse Name: Adam Briceno MD Position: [facility] Renal MD Member Role: Lifetime Consulting Physician Address: Address: [address] [place] [address], [address] [facility] [address] Name: Loren Shaffer RN Position: [facility] RN Member Role: Primary Care Nurse Name: Kelly Butt RN Position: [facility] RN Member Role: Primary Care Nurse Name: Pauline Levy RN Position: [facility] RN Member Role: Primary Care Nurse Name: Mamie Mccain RN Position: [facility] RN Member Role: Primary Care Nurse Name: Viola Michelle Position: [facility] PCO RN Member Role: Lifetime Consulting Physician Name: Torito Benoit MD Position: [facility] Renal MD Member Role: Lifetime Consulting Physician Address: Address: [address] [place] [address] [address] [facility] [place], [place] [address]- Name: Katina Alanis RN Position: S RN Member Role: Primary Care Nurse Name: Jennifer Ochoa MD Position: [facility] Physician -Physician Practices Member Role: Lifetime Consulting Physician Address: Address: [address] [place] [address]- Name: Sarabjit Cortez MD Position: [facility] Renal MD Member Role: Lifetime Consulting Physician Address: Address: [address] [place] [address] [facility] [place] [address]- Name: Pamela Wang RN Position: S RN Member Role: Primary Care Nurse Name: Barbara Lee RN Position: S RN Member Role: Primary Care Nurse Name: Sharee Bui RN Position: S RN Member Role: Primary Care Nurse Name: Yessenia Arnold RN Position: S RN Member Role: Primary Care Nurse Care Team Related Persons Name: ERICA STEFANI Address: home [address] [place] [address]
--- OUTSIDE RECORDS SUMMARY | 2023-02-12 09:24 | XMS_ITS | Continuity of Care Document ---
Author Name Unknown Organization [facility] Address [address] [place] [address]- Care Team Providers Care Fuel Management Handler Name Role Phone Siddhartha MURILLO, Sanjay Primary Care Physician [facility]counter [facility] Date[facility]s): 07/09/22 - 08/08/22 [facility] [address] [address] Allergies, Adverse Reactions, Alerts Substance Reaction [...] inactivated 1 05/02/09 Gi yousif SARS-CoV-2 mRNA (tpnddgq-rmer-vhrgn) vax 11/03/21 Given SARS-CoV-2 mRNA (zkkcbhi-xfsh-olmje) vax 11/03/21 Recorded SARS-CoV-2 (COVID-19) mRNA BNT-162b2 [...] H1N1, inactive(oldterm) 3 07/19/09 Given 1Result Comment: [id number] 2Result Comment: [id number] 3Result Comment: september 22 [id number] Medications albuterol CFC free 90 mcg/inh inhalation aerosol 2, puffs, Inhalation, Every 6 hours, PRN, # 1 each, Refills 9, Tot. Refills 9, Maintenance, 05/01/22 10:18:00 EST, Aerosol, Route to Pharmacy Electronically, [id number], [facility] #[id number], 153, cm, 05/01/22 9:47:00... Start Date: 05/01/22 [...] 12/05/21 18:14:00 EDT, Route to Pharmacy Electronically, [facility] #[id number], Partial fill upon patientrequest if the prescription is for a schedule II op... Start Date: 12/05/21 Status: Ordered atorvastatin 40 mg oral tablet 1 tablet, By Mouth, Daily, # 30 tablet, 11 Refills, Maintenance, 07/07/22 8:17:00 EDT, [facility] #[id number], 153, cm, 06/15/22 11:28:00 EST, Height, 71.1, [...] 4GM LGHT POW PK 60S CHOLESTYRAMINE 4GM [facility] PK 60S, 1, pack/packet, By Mouth, [...] 0 Refills, Maintenance, 02/10/22 17:06:00 EDT, Tablet, [facility] #[id number], Partial fill upon patient request if the prescription is for a schedule II opioid drug. Start Date: 02/10/22 Status: Ordered DilTIAZem (Eqv-Cardizem CD) 240 mg/24 hours oral capsule, extended release 1 capsule, By Mouth, Daily, # 90 capsule, 0 Refills, Maintenance, 06/18/22 14:31:00 EST, [facility] #75455, 153, cm, 06/15/22 11:28:00 EST, Height, 71.1, [...] day, 0 Refills, Maintenance, 02/07/22 23:47:00 EDT, [place], ; Start Date: 02/07/22 Status: Ordered gabapentin 600 mg oral tablet 1 tablet, By Mouth, 4 times a day, # 360 tablet, 0 Refills, Maintenance, 07/05/22 9:26:00 EDT, [facility] #[id number], 153, cm, 06/15/22 11:28:00 EST, Height, 71.1, kg, 05/01/22 9:47:00 EST, DryWeight Start Date: 07/05/22 Status: Ordered Incruse Ellipta 62.5 mcg/inh inhalation powder 1 puffs, Inhalation, Every 24 hours, APART., # 30 each, 6 Refills, Maintenance, 08/07/22 7:23:00 EDT, [facility] #[id number], 153, cm, 08/03/22 11:04:00 EDT, Height, 73.5, [...] 04/19/22 9:44:00 EST, Route to Pharmacy Electronically, [facility] #[id number], 153, cm, 04/06/22 4:32:00 EST, Height, 68.3, kg, 04/05/22 16:36:00 EST, Dry Weight Start Date: 04/19/22 Status: Ordered meloxicam 15 mg oral tablet 1 tablet, By Mouth, Daily, # 90 tablet, 1 Refills, Maintenance, 08/07/22 7:23:00 EDT, [facility] #09772, 153, cm, 08/03/22 11:04:00 EDT, Height, 73.5, [...] 70, R29. 6 f please send to [phone] Thank you, Sanjay Carl DNP, CEMETERY WORKER-C, 2... Start Date: 05/01/22 Status: Ordered Ozempic 2 mg/3 mL (0.25 mg or 0.5 mg dose) subcutaneous solution = 0.5 mg, Subcutaneous Infusion, Every 7 days, # 4 each, 3 Refills, Maintenance, 08/02/22 11:52:00 EDT, [facility] #[id number], Partial fill upon patient request if the [...] tablet, 0 Refills, Maintenance, 02/09/22 7:37:00 EDT, [facility] #[id number], 153, cm, 01/26/22 11:24:00 EDT, Height, 69.4, [...] pulmonary disease Confirmed Active COVID-19 1 Confirmed 12/23/22 Active Alcohol use Confirmed Active Cyst of [...] Personnel Name: Rose Marie Andersen RN Position: [facility] RN Member Role: Primary Care Nurse Name: Sanjay Carl NP Position: [facility] Associate Professional Member Role: PCP Address: Address: [address] [place] [address] Name: Nicole Clark RN Position: [facility] PCO RN Member Role: Primary Care Nurse Name: Susy Key RN Position: [facility] SN RN Member Role: Primary Care Nurse Name: Xenia Schmid RN Position: [facility] RN Member Role: Primary Care Nurse Name: Rboy Burton RN Position: [facility] RN Member Role: Primary Care Nurse Name: Adam Briceno MD Position: [facility] Renal MD Member Role: Lifetime Consulting Physician Address: Address: [address] [place] [address], [address] [facility] [address] Name: Loren Shaffer RN Position: [facility] RN Member Role: Primary Care Nurse Name: Kelly Butt RN Position: [facility] RN Member Role: Primary Care Nurse Name: Pauline Levy RN Position: [facility] ED RN W/OE and Tasks Member Role: Primary Care Nurse Name: Mamie Mccain RN Position: [facility] RN Member Role: Primary Care Nurse Name: Viola Michelle Position: [facility] PCO RN Member Role: Lifetime Consulting Physician Name: Torito Benoit MD Position: [facility] Renal MD Member Role: Lifetime Consulting Physician Address: Address: [address] [place] [address] [address] [facility] [place] [address]- Name: Katina Alanis RN Position: [facility] RN Member Role: Primary Care Nurse Name: Jennifer Ochoa MD Position: [facility] Physician -Physician Practices Member Role: Lifetime Consulting Physician Address: Address: [address] [place] [address]- Name: Sarabjit Cortez MD Position: [facility] Renal MD Member Role: Lifetime Consulting Physician Address: Address: [address] [place] [address] [facility] [place] [address]- Name: Pamela Wang RN Position: [facility] RN Member Role: Primary Care Nurse Name: Barbara Lee RN Position: [facility] RN Member Role: Primary Care Nurse Name: Sharee Bui RN Position: [facility] RN Member Role: Primary Care Nurse Name: Yessenia Arnold RN Position: [facility] RN Member Role: Primary Care Nurse Care Team Related Persons Name: ERICASTEFANI Address: [place] [address] [place] [address]
--- OUTSIDE RECORDS SUMMARY | 2023-02-12 09:24 | XMS_ITS | Continuity of Care Document ---
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 sulfonamides hives Active sulfa drugs hives Active Ceclor hives Active Immunizations Given and Recorded Vaccine Date Status Refusal Reason [id number] 12y+ bivalent booster vax 03/01/22 Recorded influenza [...] inactivated 1 05/02/09 Gi yousif SARS-CoV-2 mRNA (qxorouy-njyj-eipsg) vax 11/03/21 Given SARS-CoV-2 mRNA (ktjhwkr-ysgs-rjfpn) vax 11/03/21 Recorded SARS-CoV-2 (COVID-19) mRNA BNT-162b2 [...] H1N1, inactive(oldterm) 3 07/19/09 Given 1Result Comment: [id number] 2Result Comment: [id number] 3Result Comment: september 22 [id number] Medications albuterol CFC free 90 mcg/inh inhalation aerosol 2, puffs, Inhalation, Every 6 hours, PRN, # 1 each, Refills 9, Tot. Refills 9, Maintenance, 05/01/22 10:18:00 EST, Aerosol, Route to Pharmacy Electronically, [id number], [facility] #[id number], 153, cm, 05/01/22 9:47:00... Start Date: 05/01/22 [...] 12/05/21 18:14:00 EDT, Route to Pharmacy Electronically, [facility] #[id number], Partial fill upon patientrequest if the prescription is for a schedule II op... Start Date: 12/05/21 Status: Ordered atorvastatin 40 mg oral tablet 1 tablet, By Mouth, Daily, # 30 tablet, 11 Refills, Maintenance, 07/07/22 8:17:00 EDT, [facility] #[id number], 153, cm, 06/15/22 11:28:00 EST, Height, 71.1, [...] Start Date: 05/28/22 Status: Ordered CHOLESTYRAMINE 4GM [facility] PK 60S CHOLESTYRAMINE 4GM [facility] PK 60S, 1, pack/packet, By Mouth, 2 [...] 0 Refills, Maintenance, 02/10/22 17:06:00 EDT, Tablet, [facility] #[id number], Partial fill upon patient request if the prescription is for a schedule II opioid drug. Start Date: 02/10/22 Status: Ordered DilTIAZem (Eqv-Cardizem CD) 240 mg/24 hours oral capsule, extended release 1 capsule, By Mouth, Daily, # 90 capsule, 0 Refills, Maintenance, 06/18/22 14:31:00 EST, [facility] #[id number], 153, cm, 06/15/22 11:28:00 EST, Height, 71.1, [...] day, 0 Refills, Maintenance, 02/07/22 23:47:00 EDT, [place], ; Start Date: 02/07/22 Status: Ordered gabapentin 600 mg oral tablet 1 tablet, By Mouth, 4 times a day, # 360 tablet, 0 Refills, Maintenance, 07/05/22 9:26:00 EDT, [facility] #05015, 153, cm, 06/15/22 11:28:00 EST, Height, 71.1, kg, 05/01/22 9:47:00 EST, DryWeight Start Date: 07/05/22 Status: Ordered Incruse Ellipta 62.5 mcg/inh inhalation powder 1 puffs, Inhalation, Every 24 hours, APART., # 30 each, 6 Refills, Maintenance, 08/07/22 7:23:00 EDT, [facility] #[id number], 153, cm, 08/03/22 11:04:00 EDT, Height, 73.5, [...] 10/04/22 15:15:00 EDT, 09/20/22 15:15:00 EDT, Cream, [facility] #18141, Partial fill upon patient request ifthe prescription is for a schedule II opioid drug.,... Start Date: 09/20/22 Stop Date: 10/04/22 Status: Ordered loratadine 10 mg oral tablet 1, tablet, By Mouth, Daily, # 90 tablet, Refills 1, Tot. Refills 1, Maintenance, 09/20/22 15:11:00 EDT, Route to Pharmacy Electronically, [facility] #[id number], 153, cm, 09/20/22 14:55:00 EDT, Height, 73.5, kg, 08/03/22 11:04:00 EDT, Dry Weight Start Date: 09/20/22 Status: Ordered meloxicam 15 mg oral tablet 1 tablet, By Mouth, Daily, # 90 tablet, 1 Refills, Maintenance, 08/07/22 7:23:00 EDT, [facility] #55133, 153, cm, 08/03/22 11:04:00 EDT, Height, 73.5, [...] 70, R29. 6 f please send to [phone] Thank you, Sanjay Carl DNP, TIN CUTTER-C, 2... Start Date: 05/01/22 Status: Ordered Ozempic 2 mg/3 mL (0.25 mg or 0.5 mg dose) subcutaneous solution = 0.5 mg, Subcutaneous Infusion, Every 7 days, # 4 each, 3 Refills, Maintenance, 08/02/22 11:52:00 EDT, [facility] #67531, Partial fill upon patient request if the [...] tablet, 1 Refills, Maintenance, 08/22/22 10:27:00 EDT, [facility] #[id number], 153, cm, 08/07/22 15:05:00 EDT, Height, 73.5, [...] thrush Confirmed Active Chronic diarrhea- followed by [facility] GI 1 Confirmed Active COPD [...] Briceno 4 Confirmed Active Hypothyroidism-follow ed by [facility] Endo Confirmed Active Leg length [...] Associate Professional Member Role: PCP Address: Address: [address] [place] [address]- Name: Nicole Clark RN Position: [facility] AMB Nurse Member Role: Primary Care Nurse Name: Susy Key RN Position: [facility] SN RN Member Role: Primary Care Nurse Name: Xenia Schmid RN Position: S RN Member Role: Primary Care Nurse Name: Roby Burton RN Position: S RN Member Role: Primary Care Nurse Name: Adam Briceno MD Position: [facility] Renal MD Member Role: Lifetime Consulting Physician Address: Address: [address] [place] [address], [address] [facility] [place] [address]- [place] Name: Loren Shaffer RN Position: [facility] RN Member Role: Primary Care Nurse Name: Kelly Butt RN Position: [facility] RN Member Role: Primary Care Nurse Name: Pauline Levy RN Position: [facility] RN Member Role: Primary Care Nurse Name: Mamie Mccain RN Position: [facility] RN Member Role: Primary Care Nurse Name: Viola Michelle Position: [facility] AMB Nurse Member Role: Lifetime Consulting Physician Name: Torito Benoit MD Position: [facility] Renal MD Member Role: Lifetime Consulting Physician Address: Address: [address] [place] [address] [address] [facility] [place] [address]- [place] Name: Katina Alanis RN Position: [facility] RN Member Role: Primary Care Nurse Name: Jennifer Ochoa MD Position: [facility] Physician -Physician Practices Member Role: Lifetime Consulting Physician Address: Address: [address] [place] [address]- [place] Name: Sarabjit Cortez MD Position: [facility] Renal MD Member Role: Lifetime Consulting Physician Address: Address: [address] [place] [address] [facility] [place] [address]- Name: Pamela Wang RN Position: [facility] RN Member Role: Primary Care Nurse Name: Barbara Lee RN Position: S RN Member Role: Primary Care Nurse Name: Sharee Bui RN Position: S RN Member Role: Primary Care Nurse Name: Yessenia Arnold RN Position: S RN Member Role: Primary Care Nurse Care Team Related Persons Name: STEFANI MALDONADO Address: [place] [address]
--- OUTSIDE RECORDS SUMMARY | 2023-02-12 09:25 | XMS_ITS | Continuity of Care Document ---
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 sulfonamides hives Active sulfa drugs hives Active Ceclor hives Active Immunizations Given and Recorded Vaccine Date Status Refusal Reason [id number] 12y+ bivalent booster vax 03/01/22 Recorded influenza [...] inactivated 1 05/02/09 Gi yousif SARS-CoV-2 mRNA (wknbvww-qwdz-anlex) vax 11/03/21 Given SARS-CoV-2 mRNA (lbufuzo-mjbr-bszjh) vax 11/03/21 Recorded SARS-CoV-2 (COVID-19) mRNA BNT-162b2 [...] H1N1, inactive(oldterm) 3 07/19/09 Given 1Result Comment: [id number] 2Result Comment: [id number] 3Result Comment: september 22 [id number] Medications albuterol CFC free 90 mcg/inh inhalation aerosol 2, puffs, Inhalation, Every 6 hours, PRN, # 1 each, Refills 9, Tot. Refills 9, Maintenance, 05/01/22 10:18:00 EST, Aerosol, Route to Pharmacy Electronically, [id number], [facility] #[id number], 153, cm, 05/01/22 9:47:00... Start Date: 05/01/22 [...] 12/05/21 18:14:00 EDT, Route to Pharmacy Electronically, [facility] #[id number], Partial fill upon patientrequest if the prescription is for a schedule II op... Start Date: 12/05/21 Status: Ordered atorvastatin 40 mg oral tablet 1 tablet, By Mouth, Daily, # 30 tablet, 11 Refills, Maintenance, 07/07/22 8:17:00 EDT, [facility] #[id number], 153, cm, 06/15/22 11:28:00 EST, Height, 71.1, [...] 4GM [facility] P[facility] PK 60S CHOLESTYRAMINE 4GM [facility] PK 60S, 1, pack/packet, By Mouth, 2 times a day, # 60 each, 0 Refills, Maintenance, 05/28/22 8:55:00 EST, 153, cm, 05/01/22 9:47:00 EST, Height, 71.1, kg, 05/01/22 9:47:00EST, Dry Weight Start Date: 05/28/22 Status: Ordered CHOLESTYRAMINE 4GM [facility] PK 60S CHOLESTYRAMINE 4GM [facility] PK 60S, 1, pack/packet, By Mouth, [...] 0 Refills, Maintenance, 02/10/22 17:06:00 EDT, Tablet, [facility] #[id number], Partial fill upon patient request if the prescription is for a schedule II opioid drug. Start Date: 02/10/22 Status: Ordered DilTIAZem (Eqv-Cardizem CD) 240 mg/24 hours oral capsule, extended release 1 capsule, By Mouth, Daily, # 90 capsule, 0 Refills, Maintenance, 12/03/22 21:45:00 EDT, [facility] #[id number], 160, cm, 11/27/22 11:52:00 EDT, Height, 65, [...] day, 0 Refills, Maintenance, 02/07/22 23:47:00 EDT, [place], ; Start Date: 02/07/22 Status: Ordered gabapentin 600 mg oral tablet 1 tablet, By Mouth, 4 times a day, # 360 tablet, 1 Refills, Maintenance, 12/27/22 7:05:00 EDT, [facility] #[id number], 153, cm, 12/10/22 11:16:00 EDT, Height, 65, kg, 10/30/22 18:20:00 EDT, Dry Weight Start Date: 12/27/22 Status: Ordered Incruse Ellipta 62.5 mcg/inh inhalation powder 1 puffs, Inhalation, Every 24 hours, APART., # 30 each, 6 Refills, Maintenance, 08/07/22 7:23:00 EDT, [facility] #[id number], 153, cm, 08/03/22 11:04:00 EDT, Height, 73.5, [...] 3 Refills, Maintenance, 11/29/22 12:53:00 EDT, Tablet, [facility] #[id number], Partial fill upon patient request if the prescription is for a schedule... Start Date: 11/29/22 Status: Ordered loratadine 10 mg oral tablet 1, tablet, By Mouth, Daily, # 90 tablet, Refills 1, Tot. Refills 1, Maintenance, 09/20/22 15:11:00 EDT, Route to Pharmacy Electronically, [facility] #[id number], 153, cm, 09/20/22 14:55:00 EDT, Height, 73.5, kg, 08/03/22 11:04:00 EDT, Dry Weight Start Date: 09/20/22 Status: Ordered meloxicam 15 mg oral tablet 1 tablet, By Mouth, Daily, # 90 tablet, 0 Refills, Maintenance, 01/08/23 16:19:00 EDT, [facility] #[id number], 153, cm, 12/10/22 11:16:00 EDT, Height, 65, [...] 70, R29. 6 f please send to [phone] Thank you, Sanjay Carl DNP, SPECTROGRAPHIC ANALYST-C, ... Start Date: 05/01/22 Status: Ordered Ozempic 2 mg/3 mL (0.25 mg or 0.5 mg dose) subcutaneous solution See Instructions, INJECT 0.5MG SUBCUTANEOUSLY EVERY 7 DAYS, # 3 mL, 1 Refills, Maintenance, 01/14/23 4:24:00 EDT, [facility] #[id number], 153, cm, 12/10/22 11:16:00 EDT, Height, 65, [...] tablet, 0 Refills, Maintenance, 11/29/22 7:33:00 EDT, [facility] #[id number], 160, cm, 11/27/22 11:52:00 EDT, Height, 65, [...] capsule, 3 Refills, Maintenance, 10/01/22 14:36:00 EDT, [facility] #[id number], 153, cm, 09/20/22 14:55:00 EDT, Height, 73.5, [...] thrush Confirmed Active Chronic diarrhea- followed by [facility] GI 2 Confirmed Active COPD - [...] Briceno 5 Confirmed Active Hypothyroidism-follow ed by [facility] Endo Confirmed Active Leg length [...] Rose Marie Andersen RN Position: [facility] RN Member Role: Primary Care Nurse Name: Sanjay Carl NP Position: [facility] Associate Professional Member Role: PCP Address: Address: [address] [place] [address]- Name: Nicole Clark RN Position: [facility] AMB Nurse Member Role: Primary Care Nurse Name: Susy Key RN Position: [facility] RN Member Role: Primary Care Nurse Name: Xenia Schmid RN Position: [facility] RN Member Role: Primary Care Nurse Name: Roby Burton RN Position: [facility] RN Member Role: Primary Care Nurse Name: Adam Briceno MD Position: [facility] Renal MD Member Role: Lifetime Consulting Physician Address: Address: [address] [place] [address], [address] [facility] [place] [address]- Name: Loren Shaffer RN Position: [facility] RN Member Role: Primary Care Nurse Name: Kelly Butt RN Position: S RN Member Role: Primary Care Nurse Name: Pauline Levy RN Position: [facility] ED RN W/OE and Tasks Member Role: Primary Care Nurse Name: Mamie Mccain RN Position: [facility] RN Member Role: Primary Care Nurse Name: Viola Michelle Position: [facility] AMB Nurse Member Role: Lifetime Consulting Physician Name: Hardeep Colby MD Position: [facility] Renal MD Member Role: Lifetime Consulting Physician Address: Address: [address] [place] [address] [facility] [place] [address]- Name: Khadijah Stearns RN Position: [facility] SN RN Member Role: Primary Care Nurse Name: Torito Benoit MD Position: [facility] Renal MD Member Role: Lifetime Consulting Physician Address: Address: [address] [place] [address] [address] [facility] [place] [address]- Name: Katina Alanis RN Position: [facility] RN Member Role: Primary Care Nurse Name: Jennifer Ochoa MD Position: [facility] Physician -Physician Practices Member Role: Lifetime Consulting Physician Address: Address: [address] [place] [address]- Name: Sarabjit Cortez MD Position: [facility] Renal MD Member Role: Lifetime Consulting Physician Address: Address: [address] [place] [address] [facility] [place] [address]- Name: Pamela Wang RN Position: [facility] RN Member Role: Primary Care Nurse Name: Barbara Lee RN Position: S RN Member Role: Primary Care Nurse Name: Sharee Bui RN Position: [facility] RN Member Role: Primary Care Nurse Name: Yessenia Arnold RN Position: S RN Member Role: Primary Care Nurse Care Team Related Persons Name: STEFANI MALDONADO Address: home [facility] [place] [address]
--- OUTSIDE RECORDS SUMMARY | 2023-02-12 09:25 | XMS_ITS | Continuity of Care Document ---
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 sulfonamides hives Active sulfa drugs hives Active Ceclor hives Active Immunizations Given and Recorded Vaccine Date Status Refusal Reason [id number] 12y+ bivalent booster vax 03/01/22 Recorded influenza [...] inactivated 1 05/02/09 Gi yousif SARS-CoV-2 mRNA (wmffhlu-omkm-emzsw) vax 11/03/21 Given SARS-CoV-2 mRNA (wuuglsh-iwtj-jyztl) vax 11/03/21 Recorded SARS-CoV-2 (COVID-19) mRNA BNT-162b2 [...] H1N1, inactive(oldterm) 3 07/19/09 Given 1Result Comment: [id number] 2Result Comment: [id number] 3Result Comment: september 22 [id number] Medications albuterol CFC free 90 mcg/inh inhalation aerosol 2, puffs, Inhalation, Every 6 hours, PRN, # 1 each, Refills 9, Tot. Refills 9, Maintenance, 05/01/22 10:18:00 EST, Aerosol, Route to Pharmacy Electronically, [id number], [facility] #[id number], 153, cm, 05/01/22 9:47:00... Start Date: 05/01/22 [...] 12/05/21 18:14:00 EDT, Route to Pharmacy Electronically, [facility] #[id number], Partial fill upon patientrequest if the prescription is for a schedule II op... Start Date: 12/05/21 Status: Ordered atorvastatin 40 mg oral tablet 1 tablet, By Mouth, Daily, # 30 tablet, 11 Refills, Maintenance, 07/07/22 8:17:00 EDT, [facility] #[id number], 153, cm, 06/15/22 11:28:00 EST, Height, 71.1, [...] Start Date: 05/28/22 Status: Ordered CHOLESTYRAMINE 4GM [facility] PK 60S CHOLESTYRAMINE 4GM [facility] PK 60S, 1, pack/packet, By Mouth, [...] 0 Refills, Maintenance, 02/10/22 17:06:00 EDT, Tablet, [facility] #[id number], Partial fill upon patient request if the prescription is for a schedule II opioid drug. Start Date: 02/10/22 Status: Ordered DilTIAZem (Eqv-Cardizem CD) 240 mg/24 hours oral capsule, extended release 1 capsule, By Mouth, Daily, # 90 capsule, 0 Refills, Maintenance, 11/27/22 12:31:00 EDT, [facility] #[id number], 160, cm, 11/27/22 11:52:00 EDT, Height, 65, kg, 10/30/22 18:20:00 EDT, Dry Weight Start Date: 11/27/22 Status: Ordered duloxetine 60 mg oral enteric coated capsule 1 capsule = 60 mg, By Mouth, 2 times a day, 0 Refills, Maintenance, 02/07/22 23:47:00 EDT, EC Capsule, ; Start Date: 02/07/22 Status: Ordered fluticasone 50 mcg/inh nasal spray 1 sprays, Nares, Both, 2 times a day, 0 Refills, Maintenance, 02/07/22 23:47:00 EDT, [place], ; Start Date: 02/07/22 Status: Ordered gabapentin 600 mg oral tablet 1 tablet, By Mouth, 4 times a day, # 360 tablet, 0 Refills, Maintenance, 09/30/22 17:19:00 EDT, [facility] #[id number], 153, cm, 09/20/22 14:55:00 EDT, Height, 73.5, kg, 08/03/22 11:04:00 EDT, Dry Weight Start Date: 09/30/22 Status: Ordered Incruse Ellipta 62.5 mcg/inh inhalation powder 1 puffs, Inhalation, Every 24 hours, APART., # 30 each, 6 Refills, Maintenance, 08/07/22 7:23:00 EDT, [facility] #[id number], 153, cm, 08/03/22 11:04:00 EDT, Height, 73.5, [...] 09/20/22 15:11:00 EDT, Route to Pharmacy Electronically, [facility] #[id number], 153, cm, 09/20/22 14:55:00 EDT, Height, 73.5, kg, 08/03/22 11:04:00 EDT, Dry Weight Start Date: 09/20/22 Status: Ordered meloxicam 15 mg oral tablet 1 tablet, By Mouth, Daily, # 90 tablet, 1 Refills, Maintenance, 08/07/22 7:23:00 EDT, [facility] #[id number], 153, cm, 08/03/22 11:04:00 EDT, Height, 73.5, [...] 70, R29. 6 f please send to [phone] Thank you, Sanjay Carl DNP, STONE CUTTER-C, 2... Start Date: 05/01/22 Status: Ordered Ozempic 2 mg/3 mL (0.25 mg or 0.5 mg dose) subcutaneous solution See Instructions, INJECT 0.5MG SUBCUTANEOUSLY EVERY 7 DAYS, # 3 mL, 0 Refills, Maintenance, 11/14/22 14:29:00 EDT, [facility] #[id number], 160, cm, 10/30/22 18:20:00 EDT, Height, 65, kg, 10/30/22 18:20:00 EDT, Dry Weight Start Date: 11/14/22 Status: Ordered pantoprazole 40 mg oral delayed [...] tablet, 0 Refills, Maintenance, 10/18/22 15:17:00 EDT, [facility] #[id number], 153, cm, 09/20/22 14:55:00 EDT, Height, 73.5, [...] capsule, 3 Refills, Maintenance, 10/01/22 14:36:00 EDT, [facility] #91305, 153, cm, 09/20/22 14:55:00 EDT, Height, 73.5, kg, 08/03/22 11:04:00 EDT, Dry Weight Start Date: 10/01/22 Status: Ordered Zoledronic Acid 5mg/100mL (IVPB (Premix) 5 mg, IV Infusion, Once, Maintenance, EVERY YEARS, 10/27/22 14:43:00 EDT Start Date: 02/08/22 Status: Ordered Problem List Condition Confirmation Course Effective Dates Status H ealth Status Informant Alcohol abuse Confirmed Active Basal cell carcinoma (BCC) Confirmed Active Oral thrush Confirmed Active Chronic diarrhea- followed by [facility] GI 1 Confirmed Active COPD [...] Briceno 4 Confirmed Active Hypothyroidism-follow ed by [facility] Endo Confirmed Active Leg length [...] Active 1Last seen by GI in 2019 placed on Questran 2Problem added by Discern [...] Team Personnel Name: Sanjay Carl NP Position: [facility] Associate Professional Member Role: PCP Address: Address: [address] [place] [address]- Name: Nicole Clark RN Position: [facility] AMB Nurse Member Role: Primary Care Nurse Name: Susy Key RN Position: [facility] RN Member Role: Primary Care Nurse Name: Xenia Schmid RN Position: [facility] RN Member Role: Primary Care Nurse Name: Roby Burton RN Position: [facility] RN Member Role: Primary Care Nurse Name: Adam Briceno MD Position: [facility] Renal MD Member Role: Lifetime Consulting Physician Address: Address: [address] [place] [address], [address] [facility] [place] [address]- Name: Loren Shaffer RN Position: S RN Member Role: Primary Care Nurse Name: Kelly Butt RN Position: S RN Member Role: Primary Care Nurse Name: Pauline Levy RN Position: S RN Member Role: Primary Care Nurse Name: Mamie Mccain RN Position: S RN Member Role: Primary Care Nurse Name: Viola Michelle Position: [facility] AMB Nurse Member Role: Lifetime Consulting Physician Name: Torito Benoit MD Position: [facility] Renal MD Member Role: Lifetime Consulting Physician Address: Address: [address] [place] [address] [address] [facility] [place] [address]- [place] Name: Katina Alanis RN Position: [facility] RN Member Role: Primary Care Nurse Name: Jennifer Ochoa MD Position: [facility] Physician -Physician Practices Member Role: Lifetime Consulting Physician Address: Address: [address] [place] [address]- [place] Name: Sarabjit Cortez MD Position: [facility] Renal MD Member Role: Lifetime Consulting Physician Address: Address: [address] [place] [address] [facility] [place] [address]- Name: Pamela Wang RN Position: [facility] RN Member Role: Primary Care Nurse Name: Barbara Lee RN Position: S RN Member Role: Primary Care Nurse Name: Sharee Bui RN Position: S RN Member Role: Primary Care Nurse Name: Yessenia Arnold RN Position: S RN Member Role: Primary Care Nurse Care Team Related Persons Name: ERICA STEFANI Address: [place] [address]
--- OUTSIDE RECORDS SUMMARY | 2023-02-12 09:26 | XMS_ITS | Continuity of Care Document ---
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 sulfonamides hives Active sulfa drugs hives Active Ceclor hives Active Immunizations Given and Recorded Vaccine Date Status Refusal Reason [id number] 12y+ bivalent booster vax 03/01/22 Recorded influenza [...] inactivated 1 05/02/09 Gi yousif SARS-CoV-2 mRNA (wciavtb-cuxx-kqlzw) vax 11/03/21 Given SARS-CoV-2 mRNA (uphhbjh-huzg-yljnj) vax 11/03/21 Recorded SARS-CoV-2 (COVID-19) mRNA BNT-162b2 [...] H1N1, inactive(oldterm) 3 07/19/09 Given 1Result Comment: [id number] 2Result Comment: [id number] 3Result Comment: september 22 [id number] Medications albuterol CFC free 90 mcg/inh inhalation aerosol 2, puffs, Inhalation, Every 6 hours, PRN, # 1 each, Refills 9, Tot. Refills 9, Maintenance, 05/01/22 10:18:00 EST, Aerosol, Route to Pharmacy Electronically, [id number], [facility] #[id number], 153, cm, 05/01/22 9:47:00... Start Date: 05/01/22 [...] 12/05/21 18:14:00 EDT, Route to Pharmacy Electronically, [facility] #[id number], Partial fill upon patientrequest if the prescription is for a schedule II op... Start Date: 12/05/21 Status: Ordered atorvastatin 40 mg oral tablet 1 tablet, By Mouth, Daily, # 30 tablet, 11 Refills, Maintenance, 07/07/22 8:17:00 EDT, [facility] #[id number], 153, cm, 06/15/22 11:28:00 EST, Height, 71.1, [...] Start Date: 05/28/22 Status: Ordered CHOLESTYRAMINE 4GM [facility] PK 60S CHOLESTYRAMINE 4GM [facility] PK 60S, 1, pack/packet, By [...] 0 Refills, Maintenance, 02/10/22 17:06:00 EDT, Tablet, [facility] #[id number], Partial fill upon patient request if the prescription is for a schedule II opioid drug. Start Date: 02/10/22 Status: Ordered DilTIAZem (Eqv-Cardizem CD) 240 mg/24 hours oral capsule, extended release 1 capsule, By Mouth, Daily, # 90 capsule, 0 Refills, Maintenance, 12/03/22 21:45:00 EDT, [facility] #[id number], 160, cm, 11/27/22 11:52:00 EDT, Height, 65, [...] day, 0 Refills, Maintenance, 02/07/22 23:47:00 EDT, [place], ; Start Date: 02/07/22 Status: Ordered gabapentin 600 mg oral tablet 1 tablet, By Mouth, 4 times a day, # 360 tablet, 1 Refills, Maintenance, 12/27/22 7:05:00 EDT, [facility] #[id number], 153, cm, 12/10/22 11:16:00 EDT, Height, 65, kg, 10/30/22 18:20:00 EDT, Dry Weight Start Date: 12/27/22 Status: Ordered Incruse Ellipta 62.5 mcg/inh inhalation powder 1 puffs, Inhalation, Every 24 hours, APART., # 30 each, 6 Refills, Maintenance, 08/07/22 7:23:00 EDT, [facility] #[id number], 153, cm, 08/03/22 11:04:00 EDT, Height, 73.5, [...] 3 Refills, Maintenance, 11/29/22 12:53:00 EDT, Tablet, [facility] #[id number], Partial fill upon patient request if the prescription is for a schedule I... Start Date: 11/29/22 Status: Ordered loratadine 10 mg oral tablet 1, tablet, By Mouth, Daily, # 90 tablet, Refills 1, Tot. Refills 1, Maintenance, 09/20/22 15:11:00 EDT, Route to Pharmacy Electronically, [facility] #[id number], 153, cm, 09/20/22 14:55:00 EDT, Height, 73.5, kg, 08/03/22 11:04:00 EDT, Dry Weight Start Date: 09/20/22 Status: Ordered meloxicam 15 mg oral tablet 1 tablet, By Mouth, Daily, # 90 tablet, 1 Refills, Maintenance, 08/07/22 7:23:00 EDT, [facility] #[id number], 153, cm, 08/03/22 11:04:00 EDT, Height, 73.5, [...] 70, R29. 6 f please send to [phone] Thank you, Sanjay Carl DNP, BAR ROLLER-C, ... Start Date: 05/01/22 Status: Ordered Ozempic 2 mg/3 mL (0.25 mg or 0.5 mg dose) subcutaneous solution See Instructions, INJECT 0.5MG SUBCUTANEOUSLY EVERY 7 DAYS, # 3 mL, 0 Refills, Maintenance, 12/12/22 9:52:00 EDT, [facility] #[id number], 153, cm, 12/10/22 11:16:00 EDT, Height, 65, [...] tablet, 0 Refills, Maintenance, 11/29/22 7:33:00 EDT, [facility] #[id number], 160, cm, 11/27/22 11:52:00 EDT, Height, 65, [...] capsule, 3 Refills, Maintenance, 10/01/22 14:36:00 EDT, [facility] #[id number], 153, cm, 09/20/22 14:55:00 EDT, Height, 73.5, [...] thrush Confirmed Active Chronic diarrhea- followed by [facility] GI 2 Confirmed Active COPD - [...] Briceno 5 Confirmed Active Hypothyroidism-follow ed by [facility] Endo Confirmed Active Leg length inequality [...] Team Personnel Name: Sanjay Carl NP Position: [facility] Associate Professional Member Role: PCP Address: Address: [address] [place] [address] Name: Nicole Clark RN Position: [facility] AMB Nurse Member Role: Primary Care Nurse Name: Susy Key RN Position: [facility] RN Member Role: Primary Care Nurse Name: Xenia Schmid RN Position: [facility] RN Member Role: Primary Care Nurse Name: Roby Burton RN Position: [facility] RN Member Role: Primary Care Nurse Name: Adam Briceno MD Position: [facility] Renal MD Member Role: Lifetime Consulting Physician Address: Address: [address] [place] [address], [address] [facility] [place] [address]- [place] Name: Loren Shaffer RN Position: S RN Member Role: Primary Care Nurse Name: Kelly Butt RN Position: S RN Member Role: Primary Care Nurse Name: Pauline Levy RN Position: S RN Member Role: Primary Care Nurse Name: Mamie Mccain RN Position: S RN Member Role: Primary Care Nurse Name: Viola Michelle Position: [facility] AMB Nurse Member Role: Lifetime Consulting Physician Name: Khadijah Stearns RN Position: [facility] SN RN Member Role: Primary Care Nurse Name: Torito Benoit MD Position: [facility] Renal MD Member Role: Lifetime Consulting Physician Address: Address: [address] [place] [address] [address] [facility] [place] [place] [address]- Name: Katina Alanis RN Position: S RN Member Role: Primary Care Nurse Name: Jennifer Ochoa MD Position: [facility] Physician -Physician Practices Member Role: Lifetime Consulting Physician Address: Address: [address] [place] [address]- Name: Sarabjit Cortez MD Position: [facility] Renal MD Member Role: Lifetime Consulting Physician Address: Address: [address] [place] [address] [facility] [place] [address]- Name: Pamela Wang RN Position: S RN Member Role: Primary Care Nurse Name: Barbara Lee RN Position: S RN Member Role: Primary Care Nurse Name: Sharee Bui RN Position: S RN Member Role: Primary Care Nurse Name: Yessenia Arnold RN Position: S RN Member Role: Primary Care Nurse Care Team Related Persons Name: STEFANI MALDONADO Address: home [address] [place] [address]
--- OUTSIDE RECORDS SUMMARY | 2023-02-12 09:26 | XMS_ITS | Continuity of Care Document ---
Author Name Unknown Organization [facility] ter Address [address] [place] [address]- Care Team Providers Care Bellstand Attendant Name Role Phone Sanjay Carl NP Primary Care Physician [place] [facility] [place] 10/30/22 - 10/30/[address] [address]- Discharge Disposition: A-D/C Walkout Attending Physician: Not on Staff, Attending MD Admitting Physician: Not on Staff, Admitting MD Referring Physician: Not on Staff, Referring MD Allergies, Adverse Reactions, Alerts Substance Reaction Severity Status penicillin hives Active succinylcholine 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 sulfonamides hives Active sulfa drugs hives Active Ceclor hives Active Immunizations Given and Recorded Vaccine Date Status Refusal Reason [id number] 12y+ bivalent booster vax 03/01/22 Recorded influenza [...] inactivated 1 05/02/09 Gi yousif SARS-CoV-2 mRNA (txcmbmg-bnyp-fnrln) vax 11/03/21 Given SARS-CoV-2 mRNA (cheaxwi-cgyi-cqiku) vax 11/03/21 Recorded SARS-CoV-2 (COVID-19) mRNA BNT-162b2 [...] H1N1, inactive(oldterm) 3 07/19/09 Given 1Result Comment: [id number] 2Result Comment: [id number] 3Result Comment: september 22 [id number] Medications albuterol CFC free 90 mcg/inh inhalation aerosol 2, puffs, Inhalation, Every 6 hours, PRN, # 1 each, Refills 9, Tot. Refills 9, Maintenance, 05/01/22 10:18:00 EST, Aerosol, Route to Pharmacy Electronically, [id number], [facility] #[id number], 153, cm, 05/01/22 9:47:00... Start Date: 05/01/22 [...] 12/05/21 18:14:00 EDT, Route to Pharmacy Electronically, [facility] #[id number], Partial fill upon patientrequest if the prescription is for a schedule II op... Start Date: 12/05/21 Status: Ordered atorvastatin 40 mg oral tablet 1 tablet, By Mouth, Daily, # 30 tablet, 11 Refills, Maintenance, 07/07/22 8:17:00 EDT, [facility] #[id number], 153, cm, 06/15/22 11:28:00 EST, Height, 71.1, [...] 4GM [facility] PK 60S CHOLESTYRAMINE 4GM [facility] POW PK 60S, 1, pack/packet, By Mouth, 2 times a day, # 60 each, 0 Refills, Maintenance, 05/28/22 8:55:00 EST, 153, cm, 05/01/22 9:47:00 EST, Height, 71.1, kg, 05/01/22 9:47:00EST, Dry Weight Start Date: 05/28/22 Status: Ordered CHOLESTYRAMINE 4GM [facility] PK 60S CHOLESTYRAMINE 4GM [facility] POW PK 60S, 1, pack/packet, By Mouth, [...] 0 Refills, Maintenance, 02/10/22 17:06:00 EDT, Tablet, [facility] #[id number], Partial fill upon patient request if the prescription is for a schedule II opioid drug. Start Date: 02/10/22 Status: Ordered DilTIAZem (Eqv-Cardizem CD) 240 mg/24 hours oral capsule, extended release 1 capsule, By Mouth, Daily, # 90 capsule, 0 Refills, Maintenance, 06/18/22 14:31:00 EST, [facility] #[id number], 153, cm, 06/15/22 11:28:00 EST, Height, 71.1, [...] day, 0 Refills, Maintenance, 02/07/22 23:47:00 EDT, [place], ; Start Date: 02/07/22 Status: Ordered gabapentin 600 mg oral tablet 1 tablet, By Mouth, 4 times a day, # 360 tablet, 0 Refills, Maintenance, 09/30/22 17:19:00 EDT, [facility] #[id number], 153, cm, 09/20/22 14:55:00 EDT, Height, 73.5, kg, 08/03/22 11:04:00 EDT, Dry Weight Start Date: 09/30/22 Status: Ordered Incruse Ellipta 62.5 mcg/inh inhalation powder 1 puffs, Inhalation, Every 24 hours, APART., # 30 each, 6 Refills, Maintenance, 08/07/22 7:23:00 EDT, [facility] #[id number], 153, cm, 08/03/22 11:04:00 EDT, Height, 73.5, [...] 09/20/22 15:11:00 EDT, Route to Pharmacy Electronically, [facility] #[id number], 153, cm, 09/20/22 14:55:00 EDT, Height, 73.5, kg, 08/03/22 11:04:00 EDT, Dry Weight Start Date: 09/20/22 Status: Ordered meloxicam 15 mg oral tablet 1 tablet, By Mouth, Daily, # 90 tablet, 1 Refills, Maintenance, 08/07/22 7:23:00 EDT, [facility] #[id number], 153, cm, 08/03/22 11:04:00 EDT, Height, 73.5, [...] 70, R29. 6 f please send to [phone] Thank you, Sanjay Carl DNP, FORMS ANALYST-C, 2... Start Date: 05/01/22 Status: Ordered Ozempic 2 mg/3 mL (0.25 mg or 0.5 mg dose) subcutaneous solution = 0.5 mg, Subcutaneous Infusion, Every 7 days, # 4 each, 3 Refills, Maintenance, 08/02/22 11:52:00 EDT, [facility] #[id number], Partial fill upon patient request if the [...] tablet, 0 Refills, Maintenance, 10/18/22 15:17:00 EDT, [facility] #[id number], 153, cm, 09/20/22 14:55:00 EDT, Height, 73.5, [...] capsule, 3 Refills, Maintenance, 10/01/22 14:36:00 EDT, [facility] #[id number], 153, cm, 09/20/22 14:55:00 EDT, Height, 73.5, [...] thrush Confirmed Active Chronic diarrhea- followed by [facility] GI 1 Confirmed Active COPD - [...] Briceno 4 Confirmed Active Hypothyroidism-follow ed by [facility] Endo Confirmed Active Leg length inequality [...] ADH per notes 5Severe on recent Polysomnogram Vital Signs Most recent to oldest [Reference Range]: 1 2 Height 160 cm (10/30/22 6:20 PM) 160 cm (10/30/22 6:01 PM) Weight 65 kg (10/30/22 6:20 PM) 65 kg (10/30/22 6:01 PM) Oxygen Saturation [94-100 %] 98 % (10/30/22 6:51 PM) 94 % (10/30/22 6:01 PM) Pulse Rate [55-90 bpm] 79 bpm (10/30/22 6:51 PM) 76 bpm (10/30/22 6:01 PM) Body Mass Index [18.5-24.99 kg/m2] 25.39 kg/m2 *H* (10/30/22 6:01 PM) Blood Pressure [90-138/55-84 mm Hg] 137/ 82mm Hg (10/30/22 6:51 PM) 131/77mm Hg (10/30/22 6:01 PM) Temperature [96.8-100.4 DegF] 98.4 DegF (10/30/22 6:51 PM) 97.8 DegF (10/30/22 6:01 PM) Mode of Delivery (Oxygen) Room air (10/30/22 6:51 PM) Blood pressure sites Arm, left (10/30/22 6:51 PM) Arm, left (10/30/22 6:01 PM) Temperature Route Oral (10/30/22 6:51 PM) Oral (10/30/22 6:01 PM) Dry Weight 65 kg (10/30/22 6:20 PM) 65 kg (10/30/22 6:01 PM) Weight Obtained Via Standing scale (10/30/22 6:01 PM) Dry Weight Obtained Via Standing scale (10/30/22 6:01 PM) Social History Social History Type Response Smoking Status 5-9 cigarettes (betw een 1/4 to 1/2 pack)/day in last 30 days; Tobacco user in household: Yes;Never; Type: Cigarettes; Interested in cessation: Yes entered on: 02/12/20 Sex Female Patient Care team information Care Team Personnel Name: Sanjay Carl NP Position: [facility] Associate Professional Member Role: PCP Address: Address: [address] [place] [address] Name: Nicole Clark RN Position: [facility] AMB Nurse Member Role: Primary Care Nurse Name: Susy Key RN Position: [facility] SN RN Member Role: Primary Care Nurse Name: Xenia Schmid RN Position: [facility] RN Member Role: Primary Care Nurse Name: Roby Burton RN Position: [facility] RN Member Role: Primary Care Nurse Name: Adam Briceno MD Position: [facility] Renal MD Member Role: Lifetime Consulting Physician Address: Address: [address] [place] [address], [address] [facility] [address] Name: Loren Shaffer RN Position: [facility] RN Member Role: Primary Care Nurse Name: eKlly Butt RN Position: S RN Member Role: Primary Care Nurse Name: Pauline Levy RN Position: S RN Member Role: Primary Care Nurse Name: Mamie Mccain RN Position: S RN Member Role: Primary Care Nurse Name: Viola Michelle Position: [facility] AMB Nurse Member Role: Lifetime Consulting Physician Name: Torito Benoit MD Position: [facility] Renal MD Member Role: Lifetime Consulting Physician Address: Address: [address] [place] [address] [address] [facility], [place] [address]- Name: Katina Alanis RN Position: [facility] RN Member Role: Primary Care Nurse Name: Jennifer Ochoa MD Position: [facility] Physician -Physician Practices Member Role: Lifetime Consulting Physician Address: Address: [address] [place] [address] Name: Sarabjit Cortez MD Position: [facility] Renal MD Member Role: Lifetime Consulting Physician Address: Address: [address] [place] [address] [facility] [place] [address]- Name: Pamela Wang RN Position: S RN Member Role: Primary Care Nurse Name: Barbara Lee RN Position: S RN Member Role: Primary Care Nurse Name: Sharee Bui RN Position: S RN Member Role: Primary Care Nurse Name: Yessenia Arnold RN Position: S RN Member Role: Primary Care Nurse Care Team Related Persons Name: STEFANI MALDONADO Address: [place] [address]
--- OUTSIDE RECORDS SUMMARY | 2023-02-12 09:27 | XMS_ITS | Continuity of Care Document ---
Author Name Unknown Organization [facility] Address [address] [place] [address]- Care Team Providers Care Catering Attendant Name Role Phone Sanjay Carl NP Primary Care Physician [facility] Date(s): 06/22/22 - 07/29/[address] [address]- Attending Physician: Not on Staff, Attending MD Allergies, Adverse Reactions, Alerts Substance Reaction [...] inactivated 1 05/02/09 Gi yousif SARS-CoV-2 mRNA (umbrugr-pqsn-xfgar) vax 11/03/21 Given SARS-CoV-2 mRNA (vvwqufw-keta-gjjtk) vax 11/03/21 Recorded SARS-CoV-2 (COVID-19) mRNA BNT-162b2 [...] H1N1, inactive(oldterm) 3 07/19/09 Given 1Result Comment: [id number] 2Result Comment: [id number] 3Result Comment: september 22 [id number] Medications albuterol CFC free 90 mcg/inh inhalation aerosol 2, puffs, Inhalation, Every 6 hours, PRN, # 1 each, Refills 9, Tot. Refills 9, Maintenance, 05/01/22 10:18:00 EST, Aerosol, Route to Pharmacy Electronically, [id number], [facility] #[id number], , cm, 05/01/22 9:47:00... Start Date: 05/01/22 Stop [...] 12/05/21 18:14:00 EDT, Route to Pharmacy Electronically, [facility] #[id number], Partial fill upon patientrequest if the prescription is for a schedule II op... Start Date: 12/05/21 Status: Ordered atorvastatin 40 mg oral tablet 1 tablet, By Mouth, Daily, # 30 tablet, 11 Refills, Maintenance, 07/07/22 8:17:00 EDT, [facility] #[id number], 153, cm, 06/15/22 11:28:00 EST, Height, 71.1, [...] 0 Refills, Maintenance, 02/10/22 17:06:00 EDT, Tablet, [facility] #[id number], Partial fill upon patient request if the prescription is for a schedule II opioid drug. Start Date: 02/10/22 Status: Ordered DilTIAZem (Eqv-Cardizem CD) 240 mg/24 hours oral capsule, extended release 1 capsule, By Mouth, Daily, # 90 capsule, 0 Refills, Maintenance, 06/18/22 14:31:00 EST, [facility] #[id number], 153, cm, 06/15/22 11:28:00 EST, Height, 71.1, [...] day, 0 Refills, Maintenance, 02/07/22 23:47:00 EDT, [place], ; Start Date: 02/07/22 Status: Ordered gabapentin 600 mg oral tablet 1 tablet, By Mouth, 4 times a day, # 360 tablet, 0 Refills, Maintenance, 07/05/22 9:26:00 EDT, [facility] #[id number], 153, cm, 06/15/22 11:28:00 EST, Height, 71.1, kg, 05/01/22 9:47:00 EST, DryWeight Start Date: 07/05/22 Status: Ordered Incruse Ellipta 62.5 mcg/inh inhalation powder 1 puffs, Inhalation, Every 24 hours, APART., # 30 each, 6 Refills, Maintenance, 12/08/21 8:04:00 EDT, [facility] #[id number], 153, cm, 11/14/21 9:44:00 EDT, Height, 69.4, [...] 04/19/22 9:44:00 EST, Route to Pharmacy Electronically, [facility] #[id number], 153, cm, 04/06/22 4:32:00 EST, Height, 68.3, [...] 70, R29. 6 f please send to [phone] Thank you, Sanjay Carl DNP, STUDENT RECORDS SPECIALIST-C, ... Start Date: 05/01/22 Status: Ordered Ozempic 2 mg/1.5 mL (0.25 mg or 0.5 mg dose) subcutaneous solution = 0.5 mg, Subcutaneous Infusion, Every week, # 4 each, 0 Refills, Maintenance, 06/15/22 12:10:00 EST, [facility] #[id number], Partial fill upon patient request if the [...] tablet, 0 Refills, Maintenance, 02/09/22 7:37:00 EDT, [facility] #[id number], 153, cm, 01/26/22 11:24:00 EDT, Height, 69.4, [...] Personnel Name: Rose Marie Andersen RN Position: [facility] RN Member Role: Primary Care Nurse Name: Sanjay Carl NP Position: [facility] Associate Professional Member Role: PCP Address: Address: [address] [place] [address] Name: Nicole Clark RN Position: [facility] RN Member Role: Primary Care Nurse Name: Susy Key RN Position: [facility] SN RN Member Role: Primary Care Nurse Name: Xenia Schmid RN Position: [facility] RN Member Role: Primary Care Nurse Name: Roby Burton RN Position: [facility] RN Member Role: Primary Care Nurse Name: Adam Briceno MD Position: [facility] Renal MD Member Role: Lifetime Consulting Physician Address: Address: [address] [place] [address], [address] [facility] [address] Name: Loren Shaffer RN Position: [facility] RN Member Role: Primary Care Nurse Name: Kelly Butt RN Position: [facility] RN Member Role: Primary Care Nurse Name: Pauline Levy RN Position: [facility] RN Member Role: Primary Care Nurse Name: Mamie Mccain RN Position: [facility] RN Member Role: Primary Care Nurse Name: Viola Michelle Position: [facility] PCO RN Member Role: Lifetime Consulting Physician Name: Torito Benoit MD Position: [facility] Renal MD Member Role: Lifetime Consulting Physician Address: Address: [address] [place] [address] [address] [facility], [place] [address]- Name: Katina Alanis RN Position: S RN Member Role: Primary Care Nurse Name: Gabriela GALLARDO, Jennifer Savage Position: [facility] Physician -Physician Practices Member Role: Lifetime Consulting Physician Address: Address: [address] [place] [address]- Name: Sarabjit Cortez MD Position: [facility] Renal MD Member Role: Lifetime Consulting Physician Address: Address: [address] [place] [address] [facility] [place] [address]- Name: Pamela Wang RN Position: S RN Member Role: Primary Care Nurse Name: Barbara Lee RN Position: S RN Member Role: Primary Care Nurse Name: Sharee Bui RN Position: S RN Member Role: Primary Care Nurse Name: Yessenia Arnold RN Position: S RN Member Role: Primary Care Nurse Care Team Related Persons Name: STEFANI MALDONADO Address: home [address] [place] [address]
--- OUTSIDE RECORDS SUMMARY | 2023-02-12 09:27 | XMS_ITS | Continuity of Care Document ---
Author Name Unknown Organization [facility] Address [address] [place] [address]- Care Team Providers Care Retort Unloader Name Role Phone Siddhartha MURILLO, Sanjay Primary Care Physician [facility] Date[facility]): 07/05/22 - 08/04/[address] [address]- Allergies, Adverse Reactions, Alerts Substance Reaction Severity [...] inactivated 1 05/02/09 Gi yousif SARS-CoV-2 mRNA (kmszzqf-qabn-dhxvd) vax 11/03/21 Given SARS-CoV-2 mRNA (evcugzz-lttn-foeom) vax 11/03/21 Recorded SARS-CoV-2 (COVID-19) mRNA BNT-162b2 [...] H1N1, inactive(oldterm) 3 07/19/09 Given 1Result Comment: [id number] 2Result Comment: [id number] 3Result Comment: september 22 [id number] Medications albuterol CFC free 90 mcg/inh inhalation aerosol 2, puffs, Inhalation, Every 6 hours, PRN, # 1 each, Refills 9, Tot. Refills 9, Maintenance, 05/01/22 10:18:00 EST, Aerosol, Route to Pharmacy Electronically, [id number], [facility] #[id number], 153, cm, 05/01/22 9:47:00... Start Date: 05/01/22 [...] 12/05/21 18:14:00 EDT, Route to Pharmacy Electronically, [facility] #[id number], Partial fill upon patientrequest if the prescription is for a schedule II op... Start Date: 12/05/21 Status: Ordered atorvastatin 40 mg oral tablet 1 tablet, By Mouth, Daily, # 30 tablet, 11 Refills, Maintenance, 07/07/22 8:17:00 EDT, [facility] #[id number], 153, cm, 06/15/22 11:28:00 EST, Height, 71.1, [...] 0 Refills, Maintenance, 02/10/22 17:06:00 EDT, Tablet, [facility] #[id number], Partial fill upon patient request if the prescription is for a schedule II opioid drug. Start Date: 02/10/22 Status: Ordered DilTIAZem (Eqv-Cardizem CD) 240 mg/24 hours oral capsule, extended release 1 capsule, By Mouth, Daily, # 90 capsule, 0 Refills, Maintenance, 06/18/22 14:31:00 EST, [facility] #15074, 153, cm, 06/15/22 11:28:00 EST, Height, 71.1, [...] day, 0 Refills, Maintenance, 02/07/22 23:47:00 EDT, [place], ; Start Date: 02/07/22 Status: Ordered gabapentin 600 mg oral tablet 1 tablet, By Mouth, 4 times a day, # 360 tablet, 0 Refills, Maintenance, 07/05/22 9:26:00 EDT, [facility] #[id number], 153, cm, 06/15/22 11:28:00 EST, Height, 71.1, kg, 05/01/22 9:47:00 EST, DryWeight Start Date: 07/05/22 Status: Ordered Incruse Ellipta 62.5 mcg/inh inhalation powder 1 puffs, Inhalation, Every 24 hours, APART., # 30 each, 6 Refills, Maintenance, 12/08/21 8:04:00 EDT, [facility] #[id number], 153, cm, 11/14/21 9:44:00 EDT, Height, 69.4, [...] 04/19/22 9:44:00 EST, Route to Pharmacy Electronically, [facility] #[id number], 153, cm, 04/06/22 4:32:00 EST, Height, 68.3, [...] 70, R29. 6 f please send to [phone] Thank you, Sanjay Carl DNP, PLATE CONDITIONER-C, ... Start Date: 05/01/22 Status: Ordered Ozempic 2 mg/3 mL (0.25 mg or 0.5 mg dose) subcutaneous solution = 0.5 mg, Subcutaneous Infusion, Every 7 days, # 4 each, 3 Refills, Maintenance, 08/02/22 11:52:00 EDT, [facility] #[id number], Partial fill upon patient request if the [...] tablet, 0 Refills, Maintenance, 02/09/22 7:37:00 EDT, [facility] #[id number], 153, cm, 01/26/22 11:24:00 EDT, Height, 69.4, [...] Personnel Name: Rose Marie Andersen RN Position: [facility] RN Member Role: Primary Care Nurse Name: Sanjay Carl NP Position: [facility] Associate Professional Member Role: PCP Address: Address: [address] [place] [address] Name: Nicole Clark RN [facility]: [facility] RN Member Role: Primary Care Nurse Name: Susy Key RN Position: [facility] RN Member Role: Primary Care Nurse Name: Xenia Schmid RN Position: S RN Member Role: Primary Care Nurse Name: Roby Burton RN Position: [facility] RN Member Role: Primary Care Nurse Name: Adam Briceno MD Position: [facility] Renal MD Member Role: Lifetime Consulting Physician Address: Address: [address] [place] [address], [address] [facility] [place], [place] [address] Name: Loren Shaffer RN Position: S RN Member Role: Primary Care Nurse Name: Kelly Butt RN Position: S RN Member Role: Primary Care Nurse Name: Pauline Levy RN Position: S RN Member Role: Primary Care Nurse Name: Mamie Mccain RN Position: S RN Member Role: Primary Care Nurse Name: Viola Michelle Position: [facility] PCO RN Member Role: Lifetime Consulting Physician Name: Torito Benoit MD Position: [facility] Renal MD Member Role: Lifetime Consulting Physician Address: Address: [address] [place] [address] [address] [facility] [place] [address]- Name: Katina Alanis RN Position: S RN Member Role: Primary Care Nurse Name: Jennifer Ochoa MD Position: [facility] Physician -Physician Practices Member Role: Lifetime Consulting Physician Address: Address: [address] [place] [address]- Name: Sarabjit Cortez MD Position: [facility] Renal MD Member Role: Lifetime Consulting Physician Address: Address: [address] [place] [address] [facility] [place] [address]- Name: Pamela Wang RN Position: S RN Member Role: Primary Care Nurse Name: Barbara Lee RN Position: S RN Member Role: Primary Care Nurse Name: Sharee Bui RN Position: S RN Member Role: Primary Care Nurse Name: Yessenia Arnold RN Position: S RN Member Role: Primary Care Nurse Care Team Related Persons Name: STEFANI MALDONADO Address: home [address] [place] [address]
--- OUTSIDE RECORDS SUMMARY | 2023-02-12 09:28 | XMS_ITS | Continuity of Care Document ---
Author Name Unknown Organization [facility] Address [address] [address]- Care Team Providers Care Deliverer Outside Name Role Phone Siddhartha MURILLO, Sanjay Primary Care Physician [facility]): 07[facility]22 - 08/01/22 [facility] [address] [address] Attending Physician: Admtr, Radha Admitting Physician: Admtr, Radha Referring Physician: Admtr, Ar8 Allergies, Adverse Reactions, [...] inactivated 1 05/02/09 Gi yousif SARS-CoV-2 mRNA (yaoxsmd-ityo-mehiq) vax 11/03/21 Given SARS-CoV-2 mRNA (wphynyy-jewn-tpojj) vax 11/03/21 Recorded SARS-CoV-2 (COVID-19) mRNA BNT-162b2 [...] H1N1, inactive(oldterm) 3 07/19/09 Given 1Result Comment: [id number] 2Result Comment: [id number] 3Result Comment: september 22 [id number] Medications albuterol CFC free 90 mcg/inh inhalation aerosol 2, puffs, Inhalation, Every 6 hours, PRN, # 1 each, Refills 9, Tot. Refills 9, Maintenance, 05/01/22 10:18:00 EST, Aerosol, Route to Pharmacy Electronically, [id number], [facility] #[id number], 153, cm, 05/01/22 9:47:00... Start Date: 05/01/22 [...] 12/05/21 18:14:00 EDT, Route to Pharmacy Electronically, [facility] #[id number], Partial fill upon patientrequest if the prescription is for a schedule II op... Start Date: 12/05/21 Status: Ordered atorvastatin 40 mg oral tablet 1 tablet, By Mouth, Daily, # 30 tablet, 11 Refills, Maintenance, 07/07/22 8:17:00 EDT, [facility] #[id number], 153, cm, 06/15/22 11:28:00 EST, Height, 71.1, [...] 4GM [facility] POW PK 60S CHOLESTYRAMINE 4GM [facility] PK 60S, 1, pack/packet, By Mouth, 2 times a day, # 60 each, 0 Refills, Maintenance, 05/28/22 8:55:00 EST, 153, cm, 05/01/22 9:47:00 EST, Height, 71.1, kg, 05/01/22 9:47:00EST, Dry Weight Start Date: 05/28/22 Status: Ordered CHOLESTYRAMINE 4GM [facility] PK 60S CHOLESTYRAMINE 4GM [facility] PK 60S, 1, pack/packet, By Mouth, [...] 0 Refills, Maintenance, 02/10/22 17:06:00 EDT, Tablet, [facility] #[id number], Partial fill upon patient request if the prescription is for a schedule II opioid drug. Start Date: 02/10/22 Status: Ordered DilTIAZem (Eqv-Cardizem CD) 240 mg/24 hours oral capsule, extended release 1 capsule, By Mouth, Daily, # 90 capsule, 0 Refills, Maintenance, 06/18/22 14:31:00 EST, [facility] #53145, 153, cm, 06/15/22 11:28:00 EST, Height, 71.1, [...] day, 0 Refills, Maintenance, 02/07/22 23:47:00 EDT, [place], ; Start Date: 02/07/22 Status: Ordered gabapentin 600 mg oral tablet 1 tablet, By Mouth, 4 times a day, # 360 tablet, 0 Refills, Maintenance, 07/05/22 9:26:00 EDT, [facility] #[id number], 153, cm, 06/15/22 11:28:00 EST, Height, 71.1, kg, 05/01/22 9:47:00 EST, DryWeight Start Date: 07/05/22 Status: Ordered Incruse Ellipta 62.5 mcg/inh inhalation powder 1 puffs, Inhalation, Every 24 hours, APART., # 30 each, 6 Refills, Maintenance, 12/08/21 8:04:00 EDT, [facility] #[id number], 153, cm, 11/14/21 9:44:00 EDT, Height, 69.4, [...] 04/19/22 9:44:00 EST, Route to Pharmacy Electronically, [facility] #[id number], 153, cm, 04/06/22 4:32:00 EST, Height, 68.3, [...] 70, R29. 6 f please send to [phone] Thank you, Sanjay Carl DNP, BUS PERSON-C, ... Start Date: 05/01/22 Status: Ordered Ozempic 2 mg/1.5 mL (0.25 mg or 0.5 mg dose) subcutaneous solution = 0.5 mg, Subcutaneous Infusion, Every week, # 4 each, 0 Refills, Maintenance, 06/15/22 12:10:00 EST, [facility] #04313, Partial fill upon patient request if the [...] tablet, 0 Refills, Maintenance, 02/09/22 7:37:00 EDT, [facility] #[id number], 153, cm, 01/26/22 11:24:00 EDT, Height, 69.4, [...] classification Confirmed Active KAYKAY (obstructive sleep apnea) 3 [...] cessation: Yes entered on: 02/12/20 Sex Female Note * Event Display: Non BH Lab Results Authored Date: * Event Display: CT Scan Chest, Non- BH Authored Date: * Event Display: CT Scan Chest, Non- BH Authored Date: * Event Display: X-Ray Chest, Non- BH Authored Date: Patient Care team information Care Team Personnel Name: Rose Marie Andersen RN Position: [facility] RN Member Role: Primary Care Nurse Name: Sanjay Carl NP Position: [facility] Associate Professional Member Role: PCP Address: Address: [address] [place] [address] Name: Nicole Clark RN Position: [facility] PCO RN Member Role: Primary Care Nurse Name: Susy Key RN Position: [facility] SN RN Member Role: Primary Care Nurse Name: Xenia Schmid RN Position: [facility] RN Member Role: Primary Care Nurse Name: Roby Burton RN Position: [facility] RN Member Role: Primary Care Nurse Name: Adam Briceno MD Position: [facility] Renal MD Member Role: Lifetime Consulting Physician Address: Address: [address] [place] [address], [address] [facility] [place] [address]- Name: Loren Shaffer RN Position: S RN Member Role: Primary Care Nurse Name: Kelly Butt RN Position: S RN Member Role: Primary Care Nurse Name: Pauline Levy RN Position: S RN Member Role: Primary Care Nurse Name: Mamie Mccain RN Position: S RN Member Role: Primary Care Nurse Name: Viola Michelle Position: [facility] PCO RN Member Role: Lifetime Consulting Physician Name: Torito Benoit MD Position: [facility] Renal MD Member Role: Lifetime Consulting Physician Address: Address: [address] [place] [address] [address] [facility] [place] [address]- Name: Katina Alanis RN Position: S RN Member Role: Primary Care Nurse Name: Jennifer Ochoa MD Position: [facility] Physician -Physician Practices Member Role: Lifetime Consulting Physician Address: Address: [address] [place] [address]- Name: Sarabjit Cortez MD Position: [facility] Renal MD Member Role: Lifetime Consulting Physician Address: Address: [address] [place] [address] [facility] [place] [address]- Name: Pamela Wang RN Position: S RN Member Role: Primary Care Nurse Name: Barbara Lee RN Position: S RN Member Role: Primary Care Nurse Name: Sharee Bui RN Position: S RN Member Role: Primary Care Nurse Name: Yessenia Arnold RN Position: S RN Member Role: Primary Care Nurse Care Team Related Persons Name: STEFANI MALDONADO Address: [address] [address]
--- OUTSIDE RECORDS SUMMARY | 2023-02-12 09:28 | XMS_ITS | Continuity of Care Document ---
Author Name Unknown Organization [facility] Address [address] [place] [address]- Care Team Providers Care Manufacturing Controller Name Role Phone Sanjay Carl NP Primary Care Physician [place] [facility] [place]22 - 12/17/22 [facility] [address] [place] [address]- Encounter Diagnosis Osteoporosis(Discharge Diagnosis) - 12/10/22 Hypothyroidism-followed by [facility] Endo(Discharge Diagnosis) - 12/10/22 Attending Physician: Annelise Dasilva MD Allergies, Adverse Reactions, Alerts Substance Reaction Severity Status penicillin hives Active succinylcholine 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 sulfonamides hives Active sulfa drugs hives Active Ceclor hives Active Immunizations Given and Recorded Vaccine Date Status Refusal Reason [id number] 12y+ bivalent booster vax 03/01/22 Recorded influenza [...] inactivated 1 05/02/09 Gi yousif SARS-CoV-2 mRNA (scrwvkp-hamu-kwdbr) vax 11/03/21 Given SARS-CoV-2 mRNA (naujryt-tdwa-oenvy) vax 11/03/21 Recorded SARS-CoV-2 (COVID-19) mRNA BNT-162b2 [...] H1N1, inactive(oldterm) 3 07/19/09 Given 1Result Comment: [id number] 2Result Comment: [id number] 3Result Comment: september 22 [id number] Medications albuterol CFC free 90 mcg/inh inhalation aerosol 2, puffs, Inhalation, Every 6 hours, PRN, # 1 each, Refills 9, Tot. Refills 9, Maintenance, 05/01/22 10:18:00 EST, Aerosol, Route to Pharmacy Electronically, [id number], [facility] #[id number], 153, cm, 05/01/22 9:47:00... Start Date: 05/01/22 [...] 12/05/21 18:14:00 EDT, Route to Pharmacy Electronically, [facility] #[id number], Partial fill upon patientrequest if the prescription is for a schedule II op... Start Date: 12/05/21 Status: Ordered atorvastatin 40 mg oral tablet 1 tablet, By Mouth, Daily, # 30 tablet, 11 Refills, Maintenance, 07/07/22 8:17:00 EDT, [facility] #[id number], 153, cm, 06/15/22 11:28:00 EST, Height, 71.1, [...] 4GM [facility] PK 60S CHOLESTYRAMINE 4GM [facility] PK 60S, 1, pack/packet, By Mouth, 2 times a day, # 60 each, 0 Refills, Maintenance, 05/28/22 8:55:00 EST, 153, cm, 05/01/22 9:47:00 EST, Height, 71.1, kg, 05/01/22 9:47:00EST, Dry Weight Start Date: 05/28/22 Status: Ordered CHOLESTYRAMINE 4GM [facility] PK 60S CHOLESTYRAMINE 4GM [facility] PK 60S, 1, pack/packet, By Mouth, [...] 0 Refills, Maintenance, 02/10/22 17:06:00 EDT, Tablet, [facility] #[id number], Partial fill upon patient request if the prescription is for a schedule II opioid drug. Start Date: 02/10/22 Status: Ordered DilTIAZem (Eqv-Cardizem CD) 240 mg/24 hours oral capsule, extended release 1 capsule, By Mouth, Daily, # 90 capsule, 0 Refills, Maintenance, 12/03/22 21:45:00 EDT, [facility] #[id number], 160, cm, 11/27/22 11:52:00 EDT, Height, 65, [...] day, 0 Refills, Maintenance, 02/07/22 23:47:00 EDT, [place], ; Start Date: 02/07/22 Status: Ordered gabapentin 600 mg oral tablet 1 tablet, By Mouth, 4 times a day, # 360 tablet, 0 Refills, Maintenance, 09/30/22 17:19:00 EDT, [facility] #[id number], 153, cm, 09/20/22 14:55:00 EDT, Height, 73.5, kg, 08/03/22 11:04:00 EDT, Dry Weight Start Date: 09/30/22 Status: Ordered Incruse Ellipta 62.5 mcg/inh inhalation powder 1 puffs, Inhalation, Every 24 hours, APART., # 30 each, 6 Refills, Maintenance, 08/07/22 7:23:00 EDT, [facility] #[id number], 153, cm, 08/03/22 11:04:00 EDT, Height, 73.5, [...] 3 Refills, Maintenance, 11/29/22 12:53:00 EDT, Tablet, [facility] #[id number], Partial fill upon patient request if the prescription is for a schedule I... Start Date: 11/29/22 Status: Ordered loratadine 10 mg oral tablet 1, tablet, By Mouth, Daily, # 90 tablet, Refills 1, Tot. Refills 1, Maintenance, 09/20/22 15:11:00 EDT, Route to Pharmacy Electronically, [facility] #[id number], 153, cm, 09/20/22 14:55:00 EDT, Height, 73.5, kg, 08/03/22 11:04:00 EDT, Dry Weight Start Date: 09/20/22 Status: Ordered meloxicam 15 mg oral tablet 1 tablet, By Mouth, Daily, # 90 tablet, 1 Refills, Maintenance, 08/07/22 7:23:00 EDT, [facility] #[id number], 153, cm, 08/03/22 11:04:00 EDT, Height, 73.5, [...] 70, R29. 6 f please send to [phone] Thank you, Sanjay Carl DNP, PHYSIOTHERAPY PRACTICE MANAGER-C, 2... Start Date: 05/01/22 Status: Ordered Ozempic 2 mg/3 mL (0.25 mg or 0.5 mg dose) subcutaneous solution See Instructions, INJECT 0.5MG SUBCUTANEOUSLY EVERY 7 DAYS, # 3 mL, 0 Refills, Maintenance, 12/12/22 9:52:00 EDT, [facility] #[id number], 153, cm, 12/10/22 11:16:00 EDT, Height, 65, [...] tablet, 0 Refills, Maintenance, 11/29/22 7:33:00 EDT, [facility] #[id number], 160, cm, 11/27/22 11:52:00 EDT, Height, 65, [...] capsule, 3 Refills, Maintenance, 10/01/22 14:36:00 EDT, [facility] #[id number], 153, cm, 09/20/22 14:55:00 EDT, Height, 73.5, [...] thrush Confirmed Active Chronic diarrhea- followed by [facility] 1 Confirmed Active COPD [...] Briceno 4 Confirmed Active Hypothyroidism-follow ed by [facility] End[facility] Confirmed Active Leg length [...] ADH per notes 5Severe on recent Polysomnogram Diagnosis Diagnosis Type Effective Dates Health Status Clinical Service Informant Osteoporosis Discharge Diagnosis 12/10/22 Hypothyroidism-foll owed by [facility] Discharge Diagnosis 12/10/22 Vital Signs Most recent to oldest [Reference Range]: 1 Height 153 cm (12/10/22 11:16 AM) Weight 65.9 kg (12/10/22 11:16 AM) Pulse Rate [55-90 bpm] 85 bpm (12/10/22 11:16 AM) Body Mass Index [18.5-24.99 kg/m2] 28.15 kg/m2 *H* (12/10/22 11:16 AM) Blood Pressure [90-138/55-84 mm Hg] 124/ 65mm Hg (12/10/22 11:16 AM) Blood pressure sites Arm, left (12/10/22 11:16 AM) Weight Obtained Via Bed scale (12/10/22 11:16 AM) Social History Social History Type Response Smoking Status 5-9 cigarettes (betw een 1/4 to 1/2 pack)/day in last 30 days; Tobacco user in household: Yes;Never; Type: Cigarettes; Interested in cessation: Yes entered on: 02/12/20 Sex Female Patient Care team information Care Team Personnel Name: Sanjay Carl NP Position: [facility] Associate Professional Member Role: PCP Address: Address: [address] [place], [place] [id number]- Name: Nicole Clark RN Position: [facility] AMB Nurse Member Role: Primary Care Nurse Name: Susy Key RN Position: [facility] SN RN Member Role: Primary Care Nurse Name: Xenia Schmid RN Position: [facility] RN Member Role: Primary Care Nurse Name: Roby Burton RN Position: [facility] RN Member Role: Primary Care Nurse Name: Adam Briceno MD Position: [facility] Renal MD Member Role: Lifetime Consulting Physician Address: Address: [address] [place] [address], [address] [facility] [address]- Name: Loren Shaffer RN Position: [facility] RN Member Role: Primary Care Nurse Name: Kelly Butt RN Position: [facility] RN Member Role: Primary Care Nurse Name: Pauline Levy RN Position: [facility] RN Member Role: Primary Care Nurse Name: Mamie Mccain RN Position: [facility] RN Member Role: Primary Care Nurse Name: Viola Michelle Position: [facility] AMB Nurse Member Role: Lifetime Consulting Physician Name: Khadijah Stearns RN Position: [facility] SN RN Member Role: Primary Care Nurse Name: Torito Benoit MD Position: [facility] Renal MD Member Role: Lifetime Consulting Physician Address: Address: [address] [place] [address] [address] [facility] [place] [address]- Name: Katina Alanis RN Position: [facility] RN Member Role: Primary Care Nurse Name: Jennifer Ochoa MD Position: [facility] Physician -Physician Practices Member Role: Lifetime Consulting Physician Address: Address: [address] [place] [address]- [place] Name: Sarabjit Cortez MD Position: [facility] Renal MD Member Role: Lifetime Consulting Physician Address: Address: [address] [place] [address] [facility] [place] [address]- Name: Pamela Wang RN Position: S RN Member Role: Primary Care Nurse Name: Barbara Lee RN Position: S RN Member Role: Primary Care Nurse Name: Sharee Bui RN Position: S RN Member Role: Primary Care Nurse Name: Yessenia Arnold RN Position: S RN Member Role: Primary Care Nurse Care Team Related Persons Name: STEFANI MALDONADO Address: [place] [address] [place] [address]
--- OUTSIDE RECORDS SUMMARY | 2023-02-12 09:29 | XMS_ITS | Continuity of Care Document ---
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 sulfonamides hives Active sulfa drugs hives Active Ceclor hives Active Immunizations Given and Recorded Vaccine Date Status Refusal Reason [id number] 12y+ bivalent booster vax 03/01/22 Recorded influenza [...] inactivated 1 05/02/09 Gi yousif SARS-CoV-2 mRNA (wkvgkjl-vozn-amzgm) vax 11/03/21 Given SARS-CoV-2 mRNA (gzcbtpy-vlqi-juylv) vax 11/03/21 Recorded SARS-CoV-2 (COVID-19) mRNA BNT-162b2 [...] H1N1, inactive(oldterm) 3 07/19/09 Given 1Result Comment: [id number] 2Result Comment: [id number] 3Result Comment: september 22 [id number] Medications albuterol CFC free 90 mcg/inh inhalation aerosol 2, puffs, Inhalation, Every 6 hours, PRN, # 1 each, Refills 9, Tot. Refills 9, Maintenance, 05/01/22 10:18:00 EST, Aerosol, Route to Pharmacy Electronically, [id number], [facility] #[id number], 153, cm, 05/01/22 9:47:00... Start Date: 05/01/22 [...] 12/05/21 18:14:00 EDT, Route to Pharmacy Electronically, [facility] #[id number], Partial fill upon patientrequest if the prescription is for a schedule II op... Start Date: 12/05/21 Status: Ordered atorvastatin 40 mg oral tablet 1 tablet, By Mouth, Daily, # 30 tablet, 11 Refills, Maintenance, 07/07/22 8:17:00 EDT, [facility] #[id number], 153, cm, 06/15/22 11:28:00 EST, Height, 71.1, [...] Start Date: 05/28/22 Status: Ordered CHOLESTYRAMINE 4GM [facility] PK 60S CHOLESTYRAMINE 4GM [facility] PK 60S, 1, pack/packet, By Mouth, [...] 0 Refills, Maintenance, 02/10/22 17:06:00 EDT, Tablet, [facility] #[id number], Partial fill upon patient request if the prescription is for a schedule II opioid drug. Start Date: 02/10/22 Status: Ordered DilTIAZem (Eqv-Cardizem CD) 240 mg/24 hours oral capsule, extended release 1 capsule, By Mouth, Daily, # 90 capsule, 0 Refills, Maintenance, 06/18/22 14:31:00 EST, [facility] #[id number], 153, cm, 06/15/22 11:28:00 EST, Height, 71.1, [...] day, 0 Refills, Maintenance, 02/07/22 23:47:00 EDT, [place], ; Start Date: 02/07/22 Status: Ordered gabapentin 600 mg oral tablet 1 tablet, By Mouth, 4 times a day, # 360 tablet, 0 Refills, Maintenance, 07/05/22 9:26:00 EDT, [facility] #[id number], 153, cm, 06/15/22 11:28:00 EST, Height, 71.1, kg, 05/01/22 9:47:00 EST, DryWeight Start Date: 07/05/22 Status: Ordered Incruse Ellipta 62.5 mcg/inh inhalation powder 1 puffs, Inhalation, Every 24 hours, APART., # 30 each, 6 Refills, Maintenance, 08/07/22 7:23:00 EDT, [facility] #[id number], 153, cm, 08/03/22 11:04:00 EDT, Height, 73.5, [...] 10/04/22 15:15:00 EDT, 09/20/22 15:15:00 EDT, Cream, [facility] #[id number], Partial fill upon patient request ifthe prescription is for a schedule II opioid drug.,... Start Date: 09/20/22 Stop Date: 10/04/22 Status: Ordered loratadine 10 mg oral tablet 1, tablet, By Mouth, Daily, # 90 tablet, Refills 1, Tot. Refills 1, Maintenance, 09/20/22 15:11:00 EDT, Route to Pharmacy Electronically, [facility] #[id number], 153, cm, 09/20/22 14:55:00 EDT, Height, 73.5, kg, 08/03/22 11:04:00 EDT, Dry Weight Start Date: 09/20/22 Status: Ordered meloxicam 15 mg oral tablet 1 tablet, By Mouth, Daily, # 90 tablet, 1 Refills, Maintenance, 08/07/22 7:23:00 EDT, [facility] #[id number], 153, cm, 08/03/22 11:04:00 EDT, Height, 73.5, [...] 70, R29. 6 f please send to [phone] Thank you, Sanjay Carl DNP, JAPANESE INTERPRETER-C, 2... Start Date: 05/01/22 Status: Ordered Ozempic 2 mg/3 mL (0.25 mg or 0.5 mg dose) subcutaneous solution = 0.5 mg, Subcutaneous Infusion, Every 7 days, # 4 each, 3 Refills, Maintenance, 08/02/22 11:52:00 EDT, [facility] #[id number], Partial fill upon patient request if the [...] tablet, 1 Refills, Maintenance, 08/22/22 10:27:00 EDT, [facility] #[id number], 153, cm, 08/07/22 15:05:00 EDT, Height, 73.5, [...] thrush Confirmed Active Chronic diarrhea- followed by [facility] GI 1 Confirmed Active COPD - [...] Briceno 4 Confirmed Active Hypothyroidism-follow ed by [facility] End[facility] Confirmed Active Leg length inequality [...] Associate Professional Member Role: PCP Address: Address: [address] [place] [address]- Name: Nicole Clark RN Position: [facility] [...] Role: Lifetime Consulting Physician Address: Address: [address] [place] [address], [address] [facility] [place] [address]- [place] Name: Loren Shaffer RN Position: [facility] RN Member Role: Primary Care Nurse Name: Kelly Butt RN Position: [facility] RN Member Role: Primary Care Nurse Name: Pauline Levy RN Position: [facility] RN Member Role: Primary Care Nurse Name: Mamie Mccain RN Position: [facility] RN Member Role: Primary Care Nurse Name: Viola Michelle Position: [facility] AMB Nurse Member Role: Lifetime Consulting Physician Name: Torito Benoit MD Position: [facility] Renal MD Member Role: Lifetime Consulting Physician Address: Address: [address] [place] [address] [address] [facility] [place] [address]- [place] Name: Katina Alanis RN Position: [facility] RN Member Role: Primary Care Nurse Name: Jennifer Ochoa MD Position: [facility] Physician -Physician Practices Member Role: Lifetime Consulting Physician Address: Address: [address] [place] [address]- [place] Name: Sarabjit Cortez MD Position: [facility] Renal MD Member Role: Lifetime Consulting Physician Address: Address: [address] [place] [address] [facility] [place] [address]- Name: Pamela Wang RN Position: [facility] RN Member Role: Primary Care Nurse Name: Barbara Lee RN Position: S RN Member Role: Primary Care Nurse Name: Sharee Bui RN Position: S RN Member Role: Primary Care Nurse Name: Yessenia Arnold RN Position: S RN Member Role: Primary Care Nurse Care Team Related Persons Name: STEFANI MALDONADO Address: [place] [address]
--- OUTSIDE RECORDS SUMMARY | 2023-02-12 09:29 | XMS_ITS | Continuity of Care Document ---
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 Name Role Phone Siddhartha MURILLO, Sanjay Primary Care Physician [phone] Encounter [facility] Date(s): 07/17/22 - 08/16/[address] [address]- Allergies, Adverse Reactions, Alerts Substance Reaction Severity [...] inactivated 1 05/02/09 Gi yousif SARS-CoV-2 mRNA (jxyohnt-rsny-wpexa) vax 11/03/21 Given SARS-CoV-2 mRNA (ttoyaot-wqzm-rjukm) vax 11/03/21 Recorded SARS-CoV-2 (COVID-19) mRNA BNT-162b2 [...] H1N1, inactive(oldterm) 3 07/19/09 Given 1Result Comment: [id number] 2Result Comment: [id number] 3Result Comment: september 22 [id number] Medications albuterol CFC free 90 mcg/inh inhalation aerosol 2, puffs, Inhalation, Every 6 hours, PRN, # 1 each, Refills 9, Tot. Refills 9, Maintenance, 05/01/22 10:18:00 EST, Aerosol, Route to Pharmacy Electronically, [id number], [facility] #[id number], 153, cm, 05/01/22 9:47:00... Start Date: 05/01/22 [...] 12/05/21 18:14:00 EDT, Route to Pharmacy Electronically, [facility] #[id number], Partial fill upon patientrequest if the prescription is for a schedule II op... Start Date: 12/05/21 Status: Ordered atorvastatin 40 mg oral tablet 1 tablet, By Mouth, Daily, # 30 tablet, 11 Refills, Maintenance, 07/07/22 8:17:00 EDT, [facility] #[id number], 153, cm, 06/15/22 11:28:00 EST, Height, 71.1, [...] 0 Refills, Maintenance, 02/10/22 17:06:00 EDT, Tablet, [facility] #[id number], Partial fill upon patient request if the prescription is for a schedule II opioid drug. Start Date: 02/10/22 Status: Ordered DilTIAZem (Eqv-Cardizem CD) 240 mg/24 hours oral capsule, extended release 1 capsule, By Mouth, Daily, # 90 capsule, 0 Refills, Maintenance, 06/18/22 14:31:00 EST, [facility] #[id number], 153, cm, 06/15/22 11:28:00 EST, Height, 71.1, [...] day, 0 Refills, Maintenance, 02/07/22 23:47:00 EDT, [place], ; Start Date: 02/07/22 Status: Ordered gabapentin 600 mg oral tablet 1 tablet, By Mouth, 4 times a day, # 360 tablet, 0 Refills, Maintenance, 07/05/22 9:26:00 EDT, [facility] #[id number], 153, cm, 06/15/22 11:28:00 EST, Height, 71.1, kg, 05/01/22 9:47:00 EST, DryWeight Start Date: 07/05/22 Status: Ordered Incruse Ellipta 62.5 mcg/inh inhalation powder 1 puffs, Inhalation, Every 24 hours, APART., # 30 each, 6 Refills, Maintenance, 08/07/22 7:23:00 EDT, [facility] #[id number], 153, cm, 08/03/22 11:04:00 EDT, Height, 73.5, [...] 04/19/22 9:44:00 EST, Route to Pharmacy Electronically, [facility] #[id number], 153, cm, 04/06/22 4:32:00 EST, Height, 68.3, kg, 04/05/22 16:36:00 EST, Dry Weight Start Date: 04/19/22 Status: Ordered meloxicam 15 mg oral tablet 1 tablet, By Mouth, Daily, # 90 tablet, 1 Refills, Maintenance, 08/07/22 7:23:00 EDT, [facility] #[id number], 153, cm, 08/03/22 11:04:00 EDT, Height, 73.5, [...] 70, R29. 6 f please send to [phone] Thank you, Sanjay Carl DNP, PLASTIC SURGERY SPECIALIST-C, ... Start Date: 05/01/22 Status: Ordered Ozempic 2 mg/3 mL (0.25 mg or 0.5 mg dose) subcutaneous solution = 0.5 mg, Subcutaneous Infusion, Every 7 days, # 4 each, 3 Refills, Maintenance, 08/02/22 11:52:00 EDT, [facility] #[id number], Partial fill upon patient request if the [...] tablet, 0 Refills, Maintenance, 02/09/22 7:37:00 EDT, [facility] #[id number], 153, cm, 01/26/22 11:24:00 EDT, Height, 69.4, [...] Personnel Name: Rose Marie Andersen RN Position: [facility] RN Member Role: Primary Care Nurse Name: Sanjay Carl NP Position: [facility] Associate Professional Member Role: PCP Address: Address: [address] [place] [address] Name: Nicole Clark RN Position: [facility] PCO RN Member Role: Primary Care Nurse Name: Susy Key RN Position: [facility] SN RN Member Role: Primary Care Nurse Name: Xenia Schmid RN Position: [facility] RN Member Role: Primary Care Nurse Name: Roby Burton RN Position: [facility] RN Member Role: Primary Care Nurse Name: Adam Briceno MD Position: [facility] Renal MD Member Role: Lifetime Consulting Physician Address: Address: [address] [place] [address], [address] [facility] [address] Name: Loren Shaffer RN Position: S RN Member Role: Primary Care Nurse Name: Kelly Butt RN Position: [facility] RN Member Role: Primary Care Nurse Name: Pauline Levy RN Position: S RN Member Role: Primary Care Nurse Name: Mamie Mccain RN Position: S RN Member Role: Primary Care Nurse Name: Viola Michelle Position: [facility] PCO RN Member Role: Lifetime Consulting Physician Name: Torito Benoit MD Position: [facility] Renal MD Member Role: Lifetime Consulting Physician Address: Address: [address] [place] [address] [address] [facility], [place] [address]- Name: Katina Alanis RN Position: [facility] RN Member Role: Primary Care Nurse Name: Jennifer Ochoa MD Position: [facility] Physician -Physician Practices Member Role: Lifetime Consulting Physician Address: Address: [address] [place] [address]- Name: Sarabjit Cortez MD Position: [facility] Renal MD Member Role: Lifetime Consulting Physician Address: Address: [address] [place] [address] [facility] [address] Name: Pamela Wang RN Position: [facility] RN Member Role: Primary Care Nurse Name: Barbara Lee RN Position: S RN Member Role: Primary Care Nurse Name: Sharee Bui RN Position: [facility] RN Member Role: Primary Care Nurse Name: Yessenia Arnold RN Position: S RN Member Role: Primary Care Nurse Care Team Related Persons Name: ERICA STEFANI Address: [place] [address]
--- OUTSIDE RECORDS SUMMARY | 2023-02-12 09:30 | XMS_ITS | Continuity of Care Document ---
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 sulfonamides hives Active sulfa drugs hives Active Ceclor hives Active Immunizations Given and Recorded Vaccine Date Status Refusal Reason [id number] 12y+ bivalent booster vax 03/01/22 Recorded influenza [...] inactivated 1 05/02/09 Gi yousif SARS-CoV-2 mRNA (niqxesy-bhkk-nyjzg) vax 11/03/21 Given SARS-CoV-2 mRNA (ohhhhge-rsyt-wqwkn) vax 11/03/21 Recorded SARS-CoV-2 (COVID-19) mRNA BNT-162b2 [...] H1N1, inactive(oldterm) 3 07/19/09 Given 1Result Comment: [id number] 2Result Comment: [id number] 3Result Comment: september 22 [id number] Medications albuterol CFC free 90 mcg/inh inhalation aerosol 2, puffs, Inhalation, Every 6 hours, PRN, # 1 each, Refills 9, Tot. Refills 9, Maintenance, 05/01/22 10:18:00 EST, Aerosol, Route to Pharmacy Electronically, [id number], [facility] #[id number], 153, cm, 05/01/22 9:47:00... Start Date: 05/01/22 [...] 12/05/21 18:14:00 EDT, Route to Pharmacy Electronically, [facility] #[id number], Partial fill upon patientrequest if the prescription is for a schedule II op... Start Date: 12/05/21 Status: Ordered atorvastatin 40 mg oral tablet 1 tablet, By Mouth, Daily, # 30 tablet, 11 Refills, Maintenance, 07/07/22 8:17:00 EDT, [facility] #[id number], 153, cm, 06/15/22 11:28:00 EST, Height, 71.1, [...] 4GM [facility] POW PK 60S CHOLESTYRAMINE 4GM [facility] PK 60S, 1, pack/packet, By Mouth, 2 times a day, # 60 each, 0 Refills, Maintenance, 05/28/22 8:55:00 EST, 153, cm, 05/01/22 9:47:00 EST, Height, 71.1, kg, 05/01/22 9:47:00EST, Dry Weight Start Date: 05/28/22 Status: Ordered CHOLESTYRAMINE 4GM [facility] PK 60S CHOLESTYRAMINE 4GM [facility] PK 60S, 1, pack/packet, By Mouth, [...] 0 Refills, Maintenance, 02/10/22 17:06:00 EDT, Tablet, [facility] #[id number], Partial fill upon patient request if the prescription is for a schedule II opioid drug. Start Date: 02/10/22 Status: Ordered DilTIAZem (Eqv-Cardizem CD) 240 mg/24 hours oral capsule, extended release 1 capsule, By Mouth, Daily, # 90 capsule, 0 Refills, Maintenance, 06/18/22 14:31:00 EST, [facility] #[id number], 153, cm, 06/15/22 11:28:00 EST, Height, 71.1, [...] day, 0 Refills, Maintenance, 02/07/22 23:47:00 EDT, [place], ; Start Date: 02/07/22 Status: Ordered gabapentin 600 mg oral tablet 1 tablet, By Mouth, 4 times a day, # 360 tablet, 0 Refills, Maintenance, 07/05/22 9:26:00 EDT, [facility] #[id number], 153, cm, 06/15/22 11:28:00 EST, Height, 71.1, kg, 05/01/22 9:47:00 EST, DryWeight Start Date: 07/05/22 Status: Ordered Incruse Ellipta 62.5 mcg/inh inhalation powder 1 puffs, Inhalation, Every 24 hours, APART., # 30 each, 6 Refills, Maintenance, 08/07/22 7:23:00 EDT, [facility] #[id number], 153, cm, 08/03/22 11:04:00 EDT, Height, 73.5, [...] 10/04/22 15:15:00 EDT, 09/20/22 15:15:00 EDT, Cream, [facility] #52141, Partial fill upon patient request ifthe prescription is for a schedule II opioid drug.,... Start Date: 09/20/22 Stop Date: 10/04/22 Status: Ordered loratadine 10 mg oral tablet 1, tablet, By Mouth, Daily, # 90 tablet, Refills 1, Tot. Refills 1, Maintenance, 09/20/22 15:11:00 EDT, Route to Pharmacy Electronically, [facility] #[id number], 153, cm, 09/20/22 14:55:00 EDT, Height, 73.5, kg, 08/03/22 11:04:00 EDT, Dry Weight Start Date: 09/20/22 Status: Ordered meloxicam 15 mg oral tablet 1 tablet, By Mouth, Daily, # 90 tablet, 1 Refills, Maintenance, 08/07/22 7:23:00 EDT, [facility] #50662, 153, cm, 08/03/22 11:04:00 EDT, Height, 73.5, [...] 70, R29. 6 f please send to [phone] Thank you, Sanjay Carl DNP, BUSINESS TAXES SPECIALIST-C, 2... Start Date: 05/01/22 Status: Ordered Ozempic 2 mg/3 mL (0.25 mg or 0.5 mg dose) subcutaneous solution = 0.5 mg, Subcutaneous Infusion, Every 7 days, # 4 each, 3 Refills, Maintenance, 08/02/22 11:52:00 EDT, [facility] #[id number], Partial fill upon patient request if the [...] tablet, 1 Refills, Maintenance, 08/22/22 10:27:00 EDT, [facility] #08954, 153, cm, 08/07/22 15:05:00 EDT, Height, 73.5, [...] thrush Confirmed Active Chronic diarrhea- followed by [facility] GI 1 Confirmed Active COPD - Chronic [...] Briceno 4 Confirmed Active Hypothyroidism-follow ed by [facility] Endo Confirmed Active Leg length inequality Confirmed [...] RN Position: [facility] RN Member Role: Primary Care Nurse Name: Sanjay Carl NP Position: [facility] Associate Professional Member Role: PCP Address: Address: [address] [place], [place] [address], [place] [address]- [place] Name: Nicole Clark RN Position: [facility] AMB Nurse Member Role: Primary Care Nurse Name: Susy Key RN Position: [facility] SN RN Member Role: Primary Care Nurse Name: Xenia Schmid RN Position: S RN Member Role: Primary Care Nurse Name: Roby Burton RN Position: S RN Member Role: Primary Care Nurse Name: Adam Briceno MD Position: [facility] Renal MD Member Role: Lifetime Consulting Physician Address: Address: [address] [place] [address], [address] [facility] [place] [address]- [place] Name: Loren Shaffer RN Position: S RN Member Role: Primary Care Nurse Name: [place] Butt RN Position: [facility] RN Member Role: Primary Care Nurse Name: Pauline Levy RN Position: S RN Member Role: Primary Care Nurse Name: Mamie Mccain RN Position: S RN Member Role: Primary Care Nurse Name: Viola Michelle Position: [facility] AMB Nurse Member Role: Lifetime Consulting Physician Name: Torito Benoit MD Position: [facility] Renal MD Member Role: Lifetime Consulting Physician Address: Address: [address] [place] [address] [address] [facility] [place] [address]- [place] Name: Katina Alanis RN Position: [facility] RN Member Role: Primary Care Nurse Name: Jennifer Ochoa MD Position: [facility] Physician -Physician Practices Member Role: Lifetime Consulting Physician Address: Address: [address] [place] [address]- [place] Name: Sarabjit Cortez MD Position: [facility] Renal MD Member Role: Lifetime Consulting Physician Address: Address: [address] [place] [address] [facility] [place] [address]- [place] Name: Pamela Wang RN Position: S RN Member Role: Primary Care Nurse Name: Barbara Lee RN Position: S RN Member Role: Primary Care Nurse Name: Sharee Bui RN Position: S RN Member Role: Primary Care Nurse Name: Yessenia Arnold RN Position: S RN Member Role: Primary Care Nurse Care Team Related Persons Name: ERICA STEFANI Address: [place] [address]
--- OUTSIDE RECORDS SUMMARY | 2023-02-12 09:30 | XMS_ITS | Continuity of Care Document ---
Author Name Unknown Organization [facility] Address [address] [place] [address]- Care Team Providers Care Shift Coordinator Name Role Phone Siddhartha MURILLO, Sanjay Primary Care Physician [facility]counter [facility] Date(s): 07/23/22 - 08/22/[address] [address]- Allergies, Adverse Reactions, Alerts Substance Reaction Severity [...] inactivated 1 05/02/09 Gi yousif SARS-CoV-2 mRNA (fefadug-fsxo-yneey) vax 11/03/21 Given SARS-CoV-2 mRNA (mnxizxx-uxvk-neeyp) vax 11/03/21 Recorded SARS-CoV-2 (COVID-19) mRNA BNT-162b2 [...] H1N1, inactive(oldterm) 3 07/19/09 Given 1Result Comment: [id number] 2Result Comment: [id number] 3Result Comment: september 22 [id number] Medications albuterol CFC free 90 mcg/inh inhalation aerosol 2, puffs, Inhalation, Every 6 hours, PRN, # 1 each, Refills 9, Tot. Refills 9, Maintenance, 05/01/22 10:18:00 EST, Aerosol, Route to Pharmacy Electronically, [id number], [facility] #[id number], 153, cm, 05/01/22 9:47:00... Start Date: 05/01/22 [...] 12/05/21 18:14:00 EDT, Route to Pharmacy Electronically, [facility] #[id number], Partial fill upon patientrequest if the prescription is for a schedule II op... Start Date: 12/05/21 Status: Ordered atorvastatin 40 mg oral tablet 1 tablet, By Mouth, Daily, # 30 tablet, 11 Refills, Maintenance, 07/07/22 8:17:00 EDT, [facility] #47414, 153, cm, 06/15/22 11:28:00 EST, Height, 71.1, [...] 0 Refills, Maintenance, 02/10/22 17:06:00 EDT, Tablet, [facility] #[id number], Partial fill upon patient request if the prescription is for a schedule II opioid drug. Start Date: 02/10/22 Status: Ordered DilTIAZem (Eqv-Cardizem CD) 240 mg/24 hours oral capsule, extended release 1 capsule, By Mouth, Daily, # 90 capsule, 0 Refills, Maintenance, 06/18/22 14:31:00 EST, [facility] #09016, 153, cm, 06/15/22 11:28:00 EST, Height, 71.1, [...] day, 0 Refills, Maintenance, 02/07/22 23:47:00 EDT, [place], ; Start Date: 02/07/22 Status: Ordered gabapentin 600 mg oral tablet 1 tablet, By Mouth, 4 times a day, # 360 tablet, 0 Refills, Maintenance, 07/05/22 9:26:00 EDT, [facility] #56562, 153, cm, 06/15/22 11:28:00 EST, Height, 71.1, kg, 05/01/22 9:47:00 EST, DryWeight Start Date: 07/05/22 Status: Ordered Incruse Ellipta 62.5 mcg/inh inhalation powder 1 puffs, Inhalation, Every 24 hours, APART., # 30 each, 6 Refills, Maintenance, 08/07/22 7:23:00 EDT, [facility] #25309, 153, cm, 08/03/22 11:04:00 EDT, Height, 73.5, [...] 04/19/22 9:44:00 EST, Route to Pharmacy Electronically, [facility] #[id number], 153, cm, 04/06/22 4:32:00 EST, Height, 68.3, kg, 04/05/22 16:36:00 EST, Dry Weight Start Date: 04/19/22 Status: Ordered meloxicam 15 mg oral tablet 1 tablet, By Mouth, Daily, # 90 tablet, 1 Refills, Maintenance, 08/07/22 7:23:00 EDT, [facility] #[id number], 153, cm, 08/03/22 11:04:00 EDT, Height, 73.5, [...] 70, R29. 6 f please send to [phone] Thank you, Sanjay Carl DNP, SUPERVISOR OF OPERATIONS-C, ... Start Date: 05/01/22 Status: Ordered Ozempic 2 mg/3 mL (0.25 mg or 0.5 mg dose) subcutaneous solution = 0.5 mg, Subcutaneous Infusion, Every 7 days, # 4 each, 3 Refills, Maintenance, 08/02/22 11:52:00 EDT, [facility] #31831, Partial fill upon patient request if the [...] tablet, 1 Refills, Maintenance, 08/22/22 10:27:00 EDT, [facility] #02553, 153, cm, 08/07/22 15:05:00 EDT, Height, 73.5, [...] Rose Marie Andersen RN Position: [facility] RN Member Role: Primary Care Nurse Name: Sanjay Carl NP Position: [facility] Associate Professional Member Role: PCP Address: Address: [address] [place] [address] Name: Nicole Clark RN Position: [facility] PCO RN Member Role: Primary Care Nurse Name: Susy Key RN Position: [facility] SN RN Member Role: Primary Care Nurse Name: Xenia Schmid RN Position: [facility] RN Member Role: Primary Care Nurse Name: Roby Burton RN Position: [facility] RN Member Role: Primary Care Nurse Name: Adam Briceno MD Position: [facility] Renal MD Member Role: Lifetime Consulting Physician Address: Address: [address] [place] [address], [address] [facility] [address] Name: Loren Shaffer RN Position: S RN Member Role: Primary Care Nurse Name: [place] Butt RN Position: [facility] RN Member Role: Primary Care Nurse Name: Pauline Levy RN Position: S RN Member Role: Primary Care Nurse Name: Mamie Mccain RN Position: S RN Member Role: Primary Care Nurse Name: Viola Michelle Position: [facility] PCO RN Member Role: Lifetime Consulting Physician Name: Torito Benoit MD Position: [facility] Renal MD Member Role: Lifetime Consulting Physician Address: Address: [address] [place] [address] [address] [facility], [place] [address]- Name: Katina Alanis RN Position: [facility] RN Member Role: Primary Care Nurse Name: Jennifer Ochoa MD Position: [facility] Physician -Physician Practices Member Role: Lifetime Consulting Physician Address: Address: [address] [place] [address]- Name: Sarabjit Cortez MD Position: [facility] Renal MD Member Role: Lifetime Consulting Physician Address: Address: [address] [place] [address] [facility] [address] Name: Pamela Wang RN Position: [facility] RN Member Role: Primary Care Nurse Name: Barbara Lee RN Position: S RN Member Role: Primary Care Nurse Name: Sharee Bui RN Position: [facility] RN Member Role: Primary Care Nurse Name: Yessenia Arnold RN Position: S RN Member Role: Primary Care Nurse Care Team Related Persons Name: ERICA STEFANI Address: [place] [address]
--- OUTSIDE RECORDS SUMMARY | 2023-02-12 09:31 | XMS_ITS | Continuity of Care Document ---
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 sulfonamides hives Active sulfa drugs hives Active Ceclor hives Active Immunizations Given and Recorded Vaccine Date Status Refusal Reason [id number] 12y+ bivalent booster vax 03/01/22 Recorded influenza [...] inactivated 1 05/02/09 Gi yousif SARS-CoV-2 mRNA (tdxqmwy-fsgg-zvrim) vax 11/03/21 Given SARS-CoV-2 mRNA (wzhchqj-qmug-fkxed) vax 11/03/21 Recorded SARS-CoV-2 (COVID-19) mRNA BNT-162b2 [...] H1N1, inactive(oldterm) 3 07/19/09 Given 1Result Comment: [id number] 2Result Comment: [id number] 3Result Comment: september 22 [id number] Medications albuterol CFC free 90 mcg/inh inhalation aerosol 2, puffs, Inhalation, Every 6 hours, PRN, # 1 each, Refills 9, Tot. Refills 9, Maintenance, 05/01/22 10:18:00 EST, Aerosol, Route to Pharmacy Electronically, [id number], [facility] #[id number], 153, cm, 05/01/22 9:47:00... Start Date: 05/01/22 [...] 12/05/21 18:14:00 EDT, Route to Pharmacy Electronically, [facility] #[id number], Partial fill upon patientrequest if the prescription is for a schedule II op... Start Date: 12/05/21 Status: Ordered atorvastatin 40 mg oral tablet 1 tablet, By Mouth, Daily, # 30 tablet, 11 Refills, Maintenance, 07/07/22 8:17:00 EDT, [facility] #50701, 153, cm, 06/15/22 11:28:00 EST, Height, 71.1, [...] Start Date: 05/28/22 Status: Ordered CHOLESTYRAMINE 4GM [facility] POW PK 60S CHOLESTYRAMINE 4GM [facility] PK 60S, 1, pack/packet, By Mouth, [...] 0 Refills, Maintenance, 02/10/22 17:06:00 EDT, Tablet, [facility] #[id number], Partial fill upon patient request if the prescription is for a schedule II opioid drug. Start Date: 02/10/22 Status: Ordered DilTIAZem (Eqv-Cardizem CD) 240 mg/24 hours oral capsule, extended release 1 capsule, By Mouth, Daily, # 90 capsule, 0 Refills, Maintenance, 06/18/22 14:31:00 EST, [facility] #[id number], 153, cm, 06/15/22 11:28:00 EST, Height, 71.1, [...] day, 0 Refills, Maintenance, 02/07/22 23:47:00 EDT, [place], ; Start Date: 02/07/22 Status: Ordered gabapentin 600 mg oral tablet 1 tablet, By Mouth, 4 times a day, # 360 tablet, 0 Refills, Maintenance, 09/30/22 17:19:00 EDT, [facility] #29935, 153, cm, 09/20/22 14:55:00 EDT, Height, 73.5, kg, 08/03/22 11:04:00 EDT, Dry Weight Start Date: 09/30/22 Status: Ordered Incruse Ellipta 62.5 mcg/inh inhalation powder 1 puffs, Inhalation, Every 24 hours, APART., # 30 each, 6 Refills, Maintenance, 08/07/22 7:23:00 EDT, [facility] #[id number], 153, cm, 08/03/22 11:04:00 EDT, Height, 73.5, [...] 09/20/22 15:11:00 EDT, Route to Pharmacy Electronically, [facility] #[id number], 153, cm, 09/20/22 14:55:00 EDT, Height, 73.5, kg, 08/03/22 11:04:00 EDT, Dry Weight Start Date: 09/20/22 Status: Ordered meloxicam 15 mg oral tablet 1 tablet, By Mouth, Daily, # 90 tablet, 1 Refills, Maintenance, 08/07/22 7:23:00 EDT, [facility] #61700, 153, cm, 08/03/22 11:04:00 EDT, Height, 73.5, [...] 70, R29. 6 f please send to [phone] Thank you, Sanjay Carl DNP, STARCH TREATING ASSISTANT-C, ... Start Date: 05/01/22 Status: Ordered Ozempic 2 mg/3 mL (0.25 mg or 0.5 mg dose) subcutaneous solution = 0.5 mg, Subcutaneous Infusion, Every 7 days, # 4 each, 3 Refills, Maintenance, 08/02/22 11:52:00 EDT, [facility] #60793, Partial fill upon patient request if the [...] tablet, 1 Refills, Maintenance, 08/22/22 10:27:00 EDT, [facility] #55264, 153, cm, 08/07/22 15:05:00 EDT, Height, 73.5, [...] capsule, 3 Refills, Maintenance, 10/01/22 14:36:00 EDT, [facility] #93310, 153, cm, 09/20/22 14:55:00 EDT, Height, 73.5, [...] thrush Confirmed Active Chronic diarrhea- followed by [facility] GI 1 Confirmed Active COPD [...] Briceno 4 Confirmed Active Hypothyroidism-follow ed by [facility] Endo Confirmed Active Leg length [...] Active 1Last seen by GI in 2019 DrLuis Felipeilets placed on Questran 2Problem added by Discern [...] Personnel Name: Rose Marie Andersen RN Position: [facility] RN Member Role: Primary Care Nurse Name: Sanjay Carl NP Position: [facility] Associate Professional Member Role: PCP Address: Address: [address] [place] [id number] Name: Nicole Clark RN Position: [facility] AMB Nurse Member Role: Primary Care Nurse Name: Susy Key RN Position: [facility] RN Member Role: Primary Care Nurse Name: Xenia Schmid RN Position: [facility] RN Member Role: Primary Care Nurse Name: Roby Burton RN Position: S RN Member Role: Primary Care Nurse Name: Adam Briceno MD Position: [facility] Renal MD Member Role: Lifetime Consulting Physician Address: Address: [address] [place] [address], [address] [facility] [place] [address]- Name: Loren Shaffer RN Position: S RN Member Role: Primary Care Nurse Name: [place] Butt RN Position: S RN Member Role: Primary Care Nurse Name: Pauline Levy RN Position: S RN Member Role: Primary Care Nurse Name: Mamie Mccain RN Position: S RN Member Role: Primary Care Nurse Name: Viola Michelle Position: [facility] AMB Nurse Member Role: Lifetime Consulting Physician Name: Torito Benoit MD Position: [facility] Renal MD Member Role: Lifetime Consulting Physician Address: Address: [address] [place] [address] [address] [facility] [place] [address]- [place] Name: Katina Alanis RN Position: [facility] RN Member Role: Primary Care Nurse Name: Jennifer Ochoa MD Position: [facility] Physician -Physician Practices Member Role: Lifetime Consulting Physician Address: Address: [address] [place] [address]- [place] Name: Sarabjit Cortez MD Position: [facility] Renal MD Member Role: Lifetime Consulting Physician Address: Address: [address] [place] [address] [facility] [place] [address]- Name: Pamela Wang RN Position: S RN Member Role: Primary Care Nurse Name: Barbara Lee RN Position: S RN Member Role: Primary Care Nurse Name: Sharee Bui RN Position: S RN Member Role: Primary Care Nurse Name: Yessenia Arnold RN Position: S RN Member Role: Primary Care Nurse Care Team Related Persons Name: ERICASTEFANI Address: [place] [address]
--- OUTSIDE RECORDS SUMMARY | 2023-02-12 09:31 | XMS_ITS | Continuity of Care Document ---
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 sulfonamides hives Active sulfa drugs hives Active Ceclor hives Active Immunizations Given and Recorded Vaccine Date Status Refusal Reason [id number] 12y+ bivalent booster vax 03/01/22 Recorded influenza [...] inactivated 1 05/02/09 Gi yousif SARS-CoV-2 mRNA (gmgnqxj-tlbs-vtfzi) vax 11/03/21 Given SARS-CoV-2 mRNA (dnhhyww-dabx-qkeno) vax 11/03/21 Recorded SARS-CoV-2 (COVID-19) mRNA BNT-162b2 [...] H1N1, inactive(oldterm) 3 07/19/09 Given 1Result Comment: [id number] 2Result Comment: [id number] 3Result Comment: september 22 [id number] Medications albuterol CFC free 90 mcg/inh inhalation aerosol 2, puffs, Inhalation, Every 6 hours, PRN, # 1 each, Refills 9, Tot. Refills 9, Maintenance, 05/01/22 10:18:00 EST, Aerosol, Route to Pharmacy Electronically, [id number], [facility] #[id number], 153, cm, 05/01/22 9:47:00... Start Date: 05/01/22 [...] 12/05/21 18:14:00 EDT, Route to Pharmacy Electronically, [facility] #[id number], Partial fill upon patientrequest if the prescription is for a schedule II op... Start Date: 12/05/21 Status: Ordered atorvastatin 40 mg oral tablet 1 tablet, By Mouth, Daily, # 30 tablet, 11 Refills, Maintenance, 07/07/22 8:17:00 EDT, [facility] #[id number], 153, cm, 06/15/22 11:28:00 EST, Height, 71.1, [...] 4GM [facility] POW PK 60S CHOLESTYRAMINE 4GM [facility] PK 60S, 1, pack/packet, By Mouth, 2 times a day, # 60 each, 0 Refills, Maintenance, 05/28/22 8:55:00 EST, 153, cm, 05/01/22 9:47:00 EST, Height, 71.1, kg, 05/01/22 9:47:00EST, Dry Weight Start Date: 05/28/22 Status: Ordered CHOLESTYRAMINE 4GM [facility] PK 60S CHOLESTYRAMINE 4GM [facility] PK 60S, 1, pack/packet, By Mouth, [...] 0 Refills, Maintenance, 02/10/22 17:06:00 EDT, Tablet, [facility] #[id number], Partial fill upon patient request if the prescription is for a schedule II opioid drug. Start Date: 02/10/22 Status: Ordered DilTIAZem (Eqv-Cardizem CD) 240 mg/24 hours oral capsule, extended release 1 capsule, By Mouth, Daily, # 90 capsule, 0 Refills, Maintenance, 12/03/22 21:45:00 EDT, [facility] #[id number], 160, cm, 11/27/22 11:52:00 EDT, Height, 65, [...] day, 0 Refills, Maintenance, 02/07/22 23:47:00 EDT, [place] [facility], ; Start Date: 02/07/22 Status: Ordered gabapentin 600 mg oral tablet 1 tablet, By Mouth, 4 times a day, # 360 tablet, 1 Refills, Maintenance, 12/27/22 7:05:00 EDT, [facility] #[id number], 153, cm, 12/10/22 11:16:00 EDT, Height, 65, kg, 10/30/22 18:20:00 EDT, Dry Weight Start Date: 12/27/22 Status: Ordered Incruse Ellipta 62.5 mcg/inh inhalation powder 1 puffs, Inhalation, Every 24 hours, APART., # 30 each, 6 Refills, Maintenance, 08/07/22 7:23:00 EDT, [facility] #[id number], 153, cm, 08/03/22 11:04:00 EDT, Height, 73.5, [...] 3 Refills, Maintenance, 11/29/22 12:53:00 EDT, Tablet, [facility] #[id number], Partial fill upon patient request if the prescription is for a schedule... Start Date: 11/29/22 Status: Ordered loratadine 10 mg oral tablet 1, tablet, By Mouth, Daily, # 90 tablet, Refills 1, Tot. Refills 1, Maintenance, 09/20/22 15:11:00 EDT, Route to Pharmacy Electronically, [facility] #[id number], 153, cm, 09/20/22 14:55:00 EDT, Height, 73.5, kg, 08/03/22 11:04:00 EDT, Dry Weight Start Date: 09/20/22 Status: Ordered meloxicam 15 mg oral tablet 1 tablet, By Mouth, Daily, # 90 tablet, 0 Refills, Maintenance, 01/08/23 16:19:00 EDT, [facility] #[id number], 153, cm, 12/10/22 11:16:00 EDT, Height, 65, [...] 70, R29. 6 f please send to [phone] Thank you, Sanjay Carl DNP, CARPENTER [employer]-C, ... Start Date: 05/01/22 Status: Ordered Ozempic 2 mg/3 mL (0.25 mg or 0.5 mg dose) subcutaneous solution See Instructions, INJECT 0.5MG SUBCUTANEOUSLY EVERY 7 DAYS, # 3 mL, 1 Refills, Maintenance, 01/14/23 4:24:00 EDT, [facility] #[id number], 153, cm, 12/10/22 11:16:00 EDT, Height, 65, [...] tablet, 0 Refills, Maintenance, 11/29/22 7:33:00 EDT, [facility] #[id number], 160, cm, 11/27/22 11:52:00 EDT, Height, 65, [...] capsule, 3 Refills, Maintenance, 10/01/22 14:36:00 EDT, [facility] #[id number], 153, cm, 09/20/22 14:55:00 EDT, Height, 73.5, [...] thrush Confirmed Active Chronic diarrhea- followed by [facility] GI 2 Confirmed Active COPD - [...] Briceno 5 Confirmed Active Hypothyroidism-follow ed by [facility] Endo Confirmed Active Leg length inequality [...] Personnel Name: Rose Marie Andersen RN Position: [facility] RN Member Role: Primary Care Nurse Name: Sanjay Carl NP Position: [facility] Associate Professional Member Role: PCP Address: Address: [address] [place] [address]- Name: Nicole lCark RN Position: [facility] AMB Nurse Member Role: Primary Care Nurse Name: Susy Key RN Position: [facility] RN Member Role: Primary Care Nurse Name: Xenia Schmid RN Position: [facility] RN Member Role: Primary Care Nurse Name: Roby Burton RN Position: [facility] RN Member Role: Primary Care Nurse Name: Adam Briceno MD Position: [facility] Renal MD Member Role: Lifetime Consulting Physician Address: Address: [address] [place] [address], [address] [facility] [place] [address]- Name: Loren Shaffer RN Position: [facility] RN Member Role: Primary Care Nurse Name: Kelly Butt RN Position: S RN Member Role: Primary Care Nurse Name: Pauline Levy RN Position: [facility] ED RN W/OE and Tasks Member Role: Primary Care Nurse Name: Mamie Mccain RN Position: [facility] RN Member Role: Primary Care Nurse Name: Viola Michelle Position: [facility] AMB Nurse Member Role: Lifetime Consulting Physician Name: Hardeep Colby MD Position: [facility] Renal MD Member Role: Lifetime Consulting Physician Address: Address: [address] [place] [address] [facility] [place] [address]- Name: Khadijah Stearns RN Position: [facility] SN RN Member Role: Primary Care Nurse Name: Torito Benoit MD Position: [facility] Renal MD Member Role: Lifetime Consulting Physician Address: Address: [address] [place] [address] [address] [facility] [place] [address]- Name: Katina Alanis RN Position: [facility] RN Member Role: Primary Care Nurse Name: Jennifer Ochoa MD Position: [facility] Physician -Physician Practices Member Role: Lifetime Consulting Physician Address: Address: [address] [place] [address]- Name: Sarabjit Cortez MD Position: [facility] Renal MD Member Role: Lifetime Consulting Physician Address: Address: [address] [place] [address] [facility] [place] [address]- Name: Pamela Wang RN Position: [facility] RN Member Role: Primary Care Nurse Name: Barbara Lee RN Position: S RN Member Role: Primary Care Nurse Name: Sharee Bui RN Position: [facility] RN Member Role: Primary Care Nurse Name: Yessenia Arnold RN Position: S RN Member Role: Primary Care Nurse Care Team Related Persons Name: STEFANI MALDONADO Address: home [facility] [place] [address]
--- OUTSIDE RECORDS SUMMARY | 2023-02-12 09:31 | XMS_ITS | Continuity of Care Document ---
Author Name Unknown Organization [facility] Address [address] [place] [address]- Care Team Providers Care Biochemical Development Engineer Name Role Phone Sanjay Carl NP Primary Care Physician [facility] Date(s): 06/17/22 - 07/17/[address] [address]- Allergies, Adverse Reactions, Alerts Substance Reaction Severity [...] inactivated 1 05/02/09 Gi yousif SARS-CoV-2 mRNA (qjngdby-qtcr-ninun) vax 11/03/21 Given SARS-CoV-2 mRNA (uwffidx-fhsd-jsgmb) vax 11/03/21 Recorded SARS-CoV-2 (COVID-19) mRNA BNT-162b2 [...] H1N1, inactive(oldterm) 3 07/19/09 Given 1Result Comment: [id number] 2Result Comment: [id number] 3Result Comment: september 22 [id number] Medications albuterol CFC free 90 mcg/inh inhalation aerosol 2, puffs, Inhalation, Every 6 hours, PRN, # 1 each, Refills 9, Tot. Refills 9, Maintenance, 05/01/22 10:18:00 EST, Aerosol, Route to Pharmacy Electronically, [id number], [facility] #[id number], 153, cm, 05/01/22 9:47:00... Start Date: 05/01/22 [...] 12/05/21 18:14:00 EDT, Route to Pharmacy Electronically, [facility] #[id number], Partial fill upon patientrequest if the prescription is for a schedule II op... Start Date: 12/05/21 Status: Ordered atorvastatin 40 mg oral tablet 1 tablet, By Mouth, Daily, # 30 tablet, 11 Refills, Maintenance, 07/07/22 8:17:00 EDT, [facility] #[id number], 153, cm, 06/15/22 11:28:00 EST, Height, 71.1, [...] Start Date: 05/28/22 Status: Ordered CHOLESTYRAMINE 4GM [facility] POW PK 60S CHOLESTYRAMINE 4GM [facility] PK 60S, 1, pack/packet, By Mouth, 2 [...] 0 Refills, Maintenance, 02/10/22 17:06:00 EDT, Tablet, [facility] #[id number], Partial fill upon patient request if the prescription is for a schedule II opioid drug. Start Date: 02/10/22 Status: Ordered DilTIAZem (Eqv-Cardizem CD) 240 mg/24 hours oral capsule, extended release 1 capsule, By Mouth, Daily, # 90 capsule, 0 Refills, Maintenance, 06/18/22 14:31:00 EST, [facility] #[id number], 153, cm, 06/15/22 11:28:00 EST, Height, 71.1, [...] day, 0 Refills, Maintenance, 02/07/22 23:47:00 EDT, [facility], ; Start Date: 02/07/22 Status: Ordered gabapentin 600 mg oral tablet 1 tablet, By Mouth, 4 times a day, # 360 tablet, 0 Refills, Maintenance, 07/05/22 9:26:00 EDT, [facility] #[id number], 153, cm, 06/15/22 11:28:00 EST, Height, 71.1, kg, 05/01/22 9:47:00 EST, DryWeight Start Date: 07/05/22 Status: Ordered Incruse Ellipta 62.5 mcg/inh inhalation powder 1 puffs, Inhalation, Every 24 hours, APART., # 30 each, 6 Refills, Maintenance, 12/08/21 8:04:00 EDT, [facility] #[id number], 153, cm, 11/14/21 9:44:00 EDT, Height, 69.4, [...] 04/19/22 9:44:00 EST, Route to Pharmacy Electronically, [facility] #[id number], 153, cm, 04/06/22 4:32:00 EST, Height, 68.3, [...] 70, R29. 6 f please send to [phone] Thank you, Sanjay Carl DNP, LOGGING SUPERINTENDENT-C, ... Start Date: 05/01/22 Status: Ordered Ozempic 2 mg/1.5 mL (0.25 mg or 0.5 mg dose) subcutaneous solution = 0.5 mg, Subcutaneous Infusion, Every week, # 4 each, 0 Refills, Maintenance, 06/15/22 12:10:00 EST, [facility] #[id number], Partial fill upon patient request if the [...] tablet, 0 Refills, Maintenance, 02/09/22 7:37:00 EDT, [facility] #[id number], 153, cm, 01/26/22 11:24:00 EDT, Height, 69.4, [...] Personnel Name: Rose Marie Andersen RN Position: [facility] RN Member Role: Primary Care Nurse Name: Sanjay Carl NP Position: [facility] Associate Professional Member Role: PCP Address: Address: [address] [place] [address] Name: Nicole Clark [facility] RN Member Role: Primary Care Nurse Name: Susy Key RN Position: [facility] SN RN Member Role: Primary Care Nurse Name: Xenia Schmid RN Position: [facility] RN Member Role: Primary Care Nurse Name: Roby Burton RN Position: [facility] RN Member Role: Primary Care Nurse Name: Adam Briceno MD Position: [facility] Renal MD Member Role: Lifetime Consulting Physician Address: Address: [address] [place] [address], [address] [facility] [address] Name: Loren Shaffer RN Position: [facility] RN Member Role: Primary Care Nurse Name: Kelly Butt RN Position: [facility] RN Member Role: Primary Care Nurse Name: Pauline Levy RN Position: [facility] RN Member Role: Primary Care Nurse Name: Mamie Mccain RN Position: [facility] RN Member Role: Primary Care Nurse Name: Viola Michelle Position: [facility] PCO RN Member Role: Lifetime Consulting Physician Name: Torito Benoit MD Position: [facility] Renal MD Member Role: Lifetime Consulting Physician Address: Address: [address] [place] [address] [address] [facility] [place] [address]- Name: Katina Alanis RN Position: S RN Member Role: Primary Care Nurse Name: Jennifer Ochoa MD Position: [facility] Physician -Physician Practices Member Role: Lifetime Consulting Physician Address: Address: [address] [place] [address]- Name: Sarabjit Cortez MD Position: [facility] Renal MD Member Role: Lifetime Consulting Physician Address: Address: [address] [place] [address] [facility] [place] [address]- Name: Pamela Wang RN Position: S RN Member Role: Primary Care Nurse Name: Barbara Lee RN Position: S RN Member Role: Primary Care Nurse Name: Sharee Bui RN Position: S RN Member Role: Primary Care Nurse Name: Yessenia Arnold RN Position: S RN Member Role: Primary Care Nurse Care Team Related Persons Name: ERICA STEFANI Address: [address] [address]
--- NOTE | 2023-02-12 09:32 | MHC.OFFVIS ---
Intake Vital Signs 02/12/23 09:54 02/12/23 09:54 Height 5 ft 5 ft Weight 139 lb 2 oz 139 lb 2 oz BMI 27.2 27.2 BP 102/60 100/62 Blood Pressure Location Lt brachial Lt brachial Position Sitting Sitting Respiration 12 12 Pulse 69 68 Pulse Source Pulse Oximeter Pulse Oximeter Pulse Oximetry (%) 99 98 Oxygen Delivery Method Room Air Room Air Comment pre-op post-op Intake Visit Reasons: GANGLION IMPAR INJ/LOCAL Allergies succinylcholine Adverse Reaction (Severe, Verified 02/12/23 09:55) choline estrace deficiency cefaclor [From Ceclor] Adverse Reaction (Intermediate, Verified 02/12/23 09:55) hives Penicillins Adverse Reaction (Intermediate, Verified 02/12/23 09:55) hives Sulfa (Sulfonamide Antibiotics) Adverse Reaction (Intermediate, Verified 02/12/23 09:55) hives Tetanus Vaccines and Toxoid Adverse Reaction (Verified 02/12/23 09:55) Hemiparesis PFSH Medical History Anemia Asthma Back pain COPD (chronic obstructive pulmonary disease) COVID-19 vaccine series completed Elevated cholesterol Fracture of left femur GERD (gastroesophageal reflux disease) Hepatitis HTN (hypertension) Hyponatremia Schizoaffective disorder Smoker Thyroid disease Vertigo Surgical History History of appendectomy History of esophagogastroduodenoscopy (EGD) History of hip surgery History of pubovaginal sling Hx of colonoscopy Hx of elbow surgery S/P hardware removal Social History 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 Are you a primary medicare nurse to a significant other at home: No Do you presently have visiting nurse or other home services: Yes (OFFICE MACHINERY OR EQUIPMENT INSTALLER) Patient Tobacco Use Status: Current everyday Tobacco user Tobacco use type: Cigarette Cigarette Packs Per Day: 0.25 Cigarettes Per Day: 2 Years Smoked: 44 On Nicotene patch and lozengers to quit smoking started 2 weeks ago Second Hand Smoke Exposure: Yes Advance Directives Date on File: 05/27/20 Physical Exam Vital Signs: Last Vital Signs Pulse 68 02/12/23 09:54 Resp 12 02/12/23 09:54 BP 100/62 1031/23 09:54 Pulse Ox 98 02/12/23 09:54 Oxygen Delivery Method Room Air 02/12/23 09:54 BMI result Body Mass Index 27.2 Assessment & Plan Assessment & Plan (1) Coccydynia: Code(s): M53.3 - Sacrococcygeal disorders, not elsewhere classified Plan Attempt of ganglion impar block. Informed consent was explained to the patient. All questions were explained and answered.? The patient was taken inside of the operating room where she was positioned prone on operating table..? Time-out was performed delineating patient's name and date of , correct site, side, the nature of the procedure, patient's allergy, preoperative antibiotic if needed, need for VT prophylaxis..? All operating room staff was participating in OR time-out procedure.? The lower back with the patient upper back buttocks and intergluteal crease were prepped with ChloraPrep and draped with sterile utility towels. C-arm was brought over operating field and picture of caudal spine superimposed over symphysis pubis was demonstrated on the screen. Initially intervertebral disc between 2nd and 3rd caudal vertebras was chosen as the target of the injection. Projection of the target to the skin was injected with small amount of local anesthetic lidocaine 2%. After that 22 gauge 3-1/2 inch needle was inserted through the skin wheal and advanced to were the intervertebral disc between the 2nd and 3rd caudal vertebra on anterior posterior and lateral views. Unfortunately I was not able to advance the needle beyond the silhouette of the caudal spine on square lateral view the position of the needle was verified to be strict midline. Nevertheless the needle was meeting bone like resistance probably due to anterior spinal ligament calcified and ossified. The injection site was changed for the intervertebral disc between 3rd and 4th caudal vertebra where the advancement of the 22 gauge 3-1/2 inch needle was performed in similar fashion after local anesthetic administration. This time I was able to advance needle 2 mm in the front of the silhouette of the caudal spine on the lateral view while keeping the needle strictly in midline on anterior posterior view. Small amount of the contrast was injected however the image of the contrast appeared to be very close to the image of the gas inside patient's rectum. The decision was made not to inject the treatment medicine. The procedure was abandoned. The needle was removed and sterile dressing with bacitracin was obtained and applied. Orders: Orders FL guidance in treatment room 02/12/23 M53.3 - Sacrococcygeal disorders, not elsewhere classified Coding Level of Care Code Procedure Only Diagnoses Coccydynia M53.3
--- OUTSIDE RECORDS SUMMARY | 2023-02-12 09:32 | XMS_ITS | Continuity of Care Document ---
Author Name Unknown Organization [facility] Address [address] [place] [address]- Care Team Providers Care Developmental Writing Instructor Name Role Phone Siddhartha MURILLO, Sanjay Primary Care Physician [phone] [facility]counter [facility]): 08[facility]03[facility]22 - 09/02/22 [facility] [address] [place], [place] [address] Attending Physician: AdmRadha camacho Admitting Physician: AdmtrRadha Referring Physician: Admtr, Ar8 [...] inactivated 1 05/02/09 Gi yousif SARS-CoV-2 mRNA (nfwdyzu-mbzq-jbqbm) vax 11/03/21 Given SARS-CoV-2 mRNA (uflzvym-gjmg-mxryj) vax 11/03/21 Recorded SARS-CoV-2 (COVID-19) mRNA BNT-162b2 [...] H1N1, inactive(oldterm) 3 07/19/09 Given 1Result Comment: [id number] 2Result Comment: [id number] 3Result Comment: september 22 [id number] Medications albuterol CFC free 90 mcg/inh inhalation aerosol 2, puffs, Inhalation, Every 6 hours, PRN, # 1 each, Refills 9, Tot. Refills 9, Maintenance, 05/01/22 10:18:00 EST, Aerosol, Route to Pharmacy Electronically, [id number], [facility] #[id number], 153, cm, 05/01/22 9:47:00... Start Date: 05/01/22 [...] 12/05/21 18:14:00 EDT, Route to Pharmacy Electronically, [facility] #[id number], Partial fill upon patientrequest if the prescription is for a schedule II op... Start Date: 12/05/21 Status: Ordered atorvastatin 40 mg oral tablet 1 tablet, By Mouth, Daily, # 30 tablet, 11 Refills, Maintenance, 07/07/22 8:17:00 EDT, [facility] #[id number], 153, cm, 06/15/22 11:28:00 EST, Height, 71.1, [...] 4GM [facility] POW PK 60S CHOLESTYRAMINE 4[address] [facility] PK 60S, 1, pack/packet, By Mouth, 2 times a day, # 60 each, 0 Refills, Maintenance, 05/28/22 8:55:00 EST, 153, cm, 05/01/22 9:47:00 EST, Height, 71.1, kg, 05/01/22 9:47:00EST, Dry Weight Start Date: 05/28/22 Status: Ordered CHOLESTYRAMINE 4GM [facility] PK 60S CHOLESTYRAMINE [address] [facility] PK 60S, 1, pack/packet, [...] 0 Refills, Maintenance, 02/10/22 17:06:00 EDT, Tablet, [facility] #[id number], Partial fill upon patient request if the prescription is for a schedule II opioid drug. Start Date: 02/10/22 Status: Ordered DilTIAZem (Eqv-Cardizem CD) 240 mg/24 hours oral capsule, extended release 1 capsule, By Mouth, Daily, # 90 capsule, 0 Refills, Maintenance, 06/18/22 14:31:00 EST, [facility] #[id number], 153, cm, 06/15/22 11:28:00 EST, Height, 71.1, [...] day, 0 Refills, Maintenance, 02/07/22 23:47:00 EDT, [place], ; Start Date: 02/07/22 Status: Ordered gabapentin 600 mg oral tablet 1 tablet, By Mouth, 4 times a day, # 360 tablet, 0 Refills, Maintenance, 07/05/22 9:26:00 EDT, [facility] #[id number], 153, cm, 06/15/22 11:28:00 EST, Height, 71.1, kg, 05/01/22 9:47:00 EST, DryWeight Start Date: 07/05/22 Status: Ordered Incruse Ellipta 62.5 mcg/inh inhalation powder 1 puffs, Inhalation, Every 24 hours, APART., # 30 each, 6 Refills, Maintenance, 08/07/22 7:23:00 EDT, [facility] #[id number], 153, cm, 08/03/22 11:04:00 EDT, Height, 73.5, [...] 04/19/22 9:44:00 EST, Route to Pharmacy Electronically, [facility] #[id number], 153, cm, 04/06/22 4:32:00 EST, Height, 68.3, kg, 04/05/22 16:36:00 EST, Dry Weight Start Date: 04/19/22 Status: Ordered meloxicam 15 mg oral tablet 1 tablet, By Mouth, Daily, # 90 tablet, 1 Refills, Maintenance, 08/07/22 7:23:00 EDT, [facility] #[id number], 153, cm, 08/03/22 11:04:00 EDT, Height, 73.5, [...] 70, R29. 6 f please send to [phone] Thank you, Sanjay Carl DNP, GIFT WRAPPER-C, 2... Start Date: 05/01/22 Status: Ordered Ozempic 2 mg/3 mL (0.25 mg or 0.5 mg dose) subcutaneous solution = 0.5 mg, Subcutaneous Infusion, Every 7 days, # 4 each, 3 Refills, Maintenance, 08/02/22 11:52:00 EDT, [facility] #[id number], Partial fill upon patient request if the [...] tablet, 1 Refills, Maintenance, 08/22/22 10:27:00 EDT, [facility][id number], 153, cm, 08/07/22 15:05:00 EDT, Height, 73.5, [...] Name: Rose Marie Andersen RN Position: [facility] RN Member Role: Primary Care Nurse Name: Sanjay Carl NP Position: [facility] Associate Professional Member Role: PCP Address: Address: [address] [place] [address]- Name: Nicole Clark RN Position: [facility] PCO RN Member Role: Primary Care Nurse Name: Susy Key RN Position: [facility] SN RN Member Role: Primary Care Nurse Name: Xenia Schmid RN Position: [facility] RN Member Role: Primary Care Nurse Name: Roby Burton RN Position: [facility] RN Member Role: Primary Care Nurse Name: Adam Briceno MD Position: [facility] Renal MD Member Role: Lifetime Consulting Physician Address: Address: [address] [place] [address], [address] [facility] [place] [address]- Name: Loren Shaffer RN Position: [facility] RN Member Role: Primary Care Nurse Name: Kelly Butt RN Position: S RN Member Role: Primary Care Nurse Name: Pauline Levy RN Position: S RN Member Role: Primary Care Nurse Name: Mamie Mccain RN Position: S RN Member Role: Primary Care Nurse Name: Viola Michelle Position: [facility] PCO RN Member Role: Lifetime Consulting Physician Name: Torito Benoit MD Position: [facility] Renal MD Member Role: Lifetime Consulting Physician Address: Address: [address] [place] [address] [address] [facility] [place] [address]- Name: Katina Alanis RN Position: [facility] RN Member Role: Primary Care Nurse Name: Jennifer Ochoa MD Position: [facility] Physician -Physician Practices Member Role: Lifetime Consulting Physician Address: Address: [address] [place] [address]- Name: Sarabjit Cortez MD Position: [facility] Renal MD Member Role: Lifetime Consulting Physician Address: Address: [address] [place] [address] [facility] [place] [address]- Name: Pamela Wang RN Position: S RN Member Role: Primary Care Nurse Name: Barbara Lee RN Position: S RN Member Role: Primary Care Nurse Name: Sharee Bui RN Position: S RN Member Role: Primary Care Nurse Name: Yessenia Arnold RN Position: S RN Member Role: Primary Care Nurse Care Team Related Persons Name: STEFANI MALDONADO Address: [place] [address]
--- OUTSIDE RECORDS SUMMARY | 2023-02-12 09:32 | XMS_ITS | Continuity of Care Document ---
Author Name Unknown Organization [facility] Address [address] [place] [address]- Care Team Providers Care Funeral Professional Name Role Phone Siddhartha MURILLO, Sanjay Primary Care Physician [facility]22 - 07/11/22 [facility] Diabetes [address] [place] [address] Allergies, Adverse Reactions, Alerts Substance Reaction Severity [...] inactivated 1 05/02/09 Gi yousif SARS-CoV-2 mRNA (uvfjjtf-tisv-yzzeo) vax 11/03/21 Given SARS-CoV-2 mRNA (yviijas-eujs-jskvw) vax 11/03/21 Recorded SARS-CoV-2 (COVID-19) mRNA BNT-162b2 [...] H1N1, inactive(oldterm) 3 07/19/09 Given 1Result Comment: [id number] 2Result Comment: [id number] 3Result Comment: september 22 [id number] Medications albuterol CFC free 90 mcg/inh inhalation aerosol 2, puffs, Inhalation, Every 6 hours, PRN, # 1 each, Refills 9, Tot. Refills 9, Maintenance, 05/01/22 10:18:00 EST, Aerosol, Route to Pharmacy Electronically, [id number], [facility] #[id number], 153, cm, 05/01/22 9:47:00... Start Date: 05/01/22 [...] 12/05/21 18:14:00 EDT, Route to Pharmacy Electronically, [facility] #[id number], Partial fill upon patientrequest if the prescription is for a schedule II op... Start Date: 12/05/21 Status: Ordered atorvastatin 40 mg oral tablet 1 tablet, By Mouth, Daily, # 30 tablet, 11 Refills, Maintenance, 07/07/22 8:17:00 EDT, [facility] #[id number], 153, cm, 06/15/22 11:28:00 EST, Height, 71.1, [...] 4GM LGHT POW PK 60S CHOLESTYRAMINE 4GM [facility] PK 60S, 1, pack/packet, By Mouth, [...] 0 Refills, Maintenance, 02/10/22 17:06:00 EDT, Tablet, [facility] #[id number], Partial fill upon patient request if the prescription is for a schedule II opioid drug. Start Date: 02/10/22 Status: Ordered DilTIAZem (Eqv-Cardizem CD) 240 mg/24 hours oral capsule, extended release 1 capsule, By Mouth, Daily, # 90 capsule, 0 Refills, Maintenance, 06/18/22 14:31:00 EST, [facility] #[id number], 153, cm, 06/15/22 11:28:00 EST, Height, 71.1, [...] day, 0 Refills, Maintenance, 02/07/22 23:47:00 EDT, [place], ; Start Date: 02/07/22 Status: Ordered gabapentin 600 mg oral tablet 1 tablet, By Mouth, 4 times a day, # 360 tablet, 0 Refills, Maintenance, 07/05/22 9:26:00 EDT, [facility] #[id number], 153, cm, 06/15/22 11:28:00 EST, Height, 71.1, kg, 05/01/22 9:47:00 EST, DryWeight Start Date: 07/05/22 Status: Ordered Incruse Ellipta 62.5 mcg/inh inhalation powder 1 puffs, Inhalation, Every 24 hours, APART., # 30 each, 6 Refills, Maintenance, 12/08/21 8:04:00 EDT, [facility] #[id number], 153, cm, 11/14/21 9:44:00 EDT, Height, 69.4, [...] 04/19/22 9:44:00 EST, Route to Pharmacy Electronically, [facility] #[id number], 153, cm, 04/06/22 4:32:00 EST, Height, 68.3, [...] 70, R29. 6 f please send to [phone] Thank you, Sanjay Carl DNP, [employer]USTRIAL [employer] MAGISTRATE-C, ... Start Date: 05/01/22 Status: Ordered Ozempic 2 mg/1.5 mL (0.25 mg or 0.5 mg dose) subcutaneous solution = 0.5 mg, Subcutaneous Infusion, Every week, # 4 each, 0 Refills, Maintenance, 06/15/22 12:10:00 EST, [facility] #[id number], Partial fill upon patient request if the [...] tablet, 0 Refills, Maintenance, 02/09/22 7:37:00 EDT, [facility] #[id number], 153, cm, 01/26/22 11:24:00 EDT, Height, 69.4, [...] Personnel Name: Rose Marie Andersen RN Position: [facility] RN Member Role: Primary Care Nurse Name: Sanjay Carl NP Position: [facility] Associate Professional Member Role: PCP Address: Address: [address] [place] [address] Name: Nicole Clark RN [facility] RN Member Role: Primary Care Nurse Name: Susy Key RN Position: [facility] SN RN Member Role: Primary Care Nurse Name: Xenia Schmid RN Position: [facility] RN Member Role: Primary Care Nurse Name: Roby Burton RN Position: [facility] RN Member Role: Primary Care Nurse Name: Adam Briceno MD Position: [facility] Renal MD Member Role: Lifetime Consulting Physician Address: Address: [address] [place] [address], [address] [facility] [address] Name: Loren Shaffer RN Position: [facility] RN Member Role: Primary Care Nurse Name: Kelly Butt RN Position: [facility] RN Member Role: Primary Care Nurse Name: Pauline Levy RN Position: [facility] RN Member Role: Primary Care Nurse Name: Mamie Mccain RN Position: [facility] RN Member Role: Primary Care Nurse Name: Viola Michelle Position: [facility] PCO RN Member Role: Lifetime Consulting Physician Name: Torito Benoit MD Position: [facility] Renal MD Member Role: Lifetime Consulting Physician Address: Address: [address] [facility] [address] [facility] [place] [place] [address]- Name: Katina Alanis RN Position: S RN Member Role: Primary Care Nurse Name: Jennifer Ochoa MD Position: [facility] Physician -Physician Practices Member Role: Lifetime Consulting Physician Address: Address: [address] [place] [address]- Name: Sarabjit Cortez MD Position: [facility] Renal MD Member Role: Lifetime Consulting Physician Address: Address: [address] [place] [address] [facility] [place] [address]- Name: Pamela Wang RN Position: S RN Member Role: Primary Care Nurse Name: Barbara Lee RN Position: S RN Member Role: Primary Care Nurse Name: Sharee Bui RN Position: S RN Member Role: Primary Care Nurse Name: Yessenia Arnold RN Position: S RN Member Role: Primary Care Nurse Care Team Related Persons Name: ERICA STEFANI Address: home [address] [place] [address]
--- OUTSIDE RECORDS SUMMARY | 2023-02-12 09:33 | XMS_ITS | Continuity of Care Document ---
Author Name Unknown Organization [facility] Address [address] [place] [address]- Care Team Providers Care Banking Assistant Name Role Phone Siddhartha MURILLO, Sanjay Primary Care Physician [facility] Date[facility]s): 07/10/22 - 08/09/[address] [facility] [address] [address]- Attending Physician: Radha Duggan Admitting Physician: AdmRadha camacho Referring Physician: AdmtrRadha Allergies, Adverse Reactions, Alerts Substance Reaction Severity [...] inactivated 1 05/02/09 Gi yousif SARS-CoV-2 mRNA (dmylvtr-huoo-uibpk) vax 11/03/21 Given SARS-CoV-2 mRNA (kozjiim-kdwb-xwyin) vax 11/03/21 Recorded SARS-CoV-2 (COVID-19) mRNA BNT-162b2 [...] H1N1, inactive(oldterm) 3 07/19/09 Given 1Result Comment: [id number] 2Result Comment: [id number] 3Result Comment: september 22 [id number] Medications albuterol CFC free 90 mcg/inh inhalation aerosol 2, puffs, Inhalation, Every 6 hours, PRN, # 1 each, Refills 9, Tot. Refills 9, Maintenance, 05/01/22 10:18:00 EST, Aerosol, Route to Pharmacy Electronically, [id number], [facility] #[id number], 153, cm, 05/01/22 9:47:00... Start Date: 05/01/22 [...] 12/05/21 18:14:00 EDT, Route to Pharmacy Electronically, [facility] #[id number], Partial fill upon patientrequest if the prescription is for a schedule II op... Start Date: 12/05/21 Status: Ordered atorvastatin 40 mg oral tablet 1 tablet, By Mouth, Daily, # 30 tablet, 11 Refills, Maintenance, 07/07/22 8:17:00 EDT, [facility] #[id number], 153, cm, 06/15/22 11:28:00 EST, Height, 71.1, [...] 4GM LGHT POW PK 60S CHOLESTYRAMINE 4GM [facility] PK 60S, 1, pack/packet, By Mouth, 2 times a day, # 60 each, 0 Refills, Maintenance, 05/28/22 8:55:00 EST, 153, cm, 05/01/22 9:47:00 EST, Height, 71.1, kg, 05/01/22 9:47:00EST, Dry Weight Start Date: 05/28/22 Status: Ordered CHOLESTYRAMINE 4GM [facility] PK 60S CHOLESTYRAMINE 4GM [facility] PK 60S, 1, pack/packet, By Mouth, 2 [...] 0 Refills, Maintenance, 02/10/22 17:06:00 EDT, Tablet, [facility] #[id number], Partial fill upon patient request if the prescription is for a schedule II opioid drug. Start Date: 02/10/22 Status: Ordered DilTIAZem (Eqv-Cardizem CD) 240 mg/24 hours oral capsule, extended release 1 capsule, By Mouth, Daily, # 90 capsule, 0 Refills, Maintenance, 06/18/22 14:31:00 EST, [facility] #[id number], 153, cm, 06/15/22 11:28:00 EST, Height, 71.1, [...] day, 0 Refills, Maintenance, 02/07/22 23:47:00 EDT, [place], ; Start Date: 02/07/22 Status: Ordered gabapentin 600 mg oral tablet 1 tablet, By Mouth, 4 times a day, # 360 tablet, 0 Refills, Maintenance, 07/05/22 9:26:00 EDT, [facility] #[id number], 153, cm, 06/15/22 11:28:00 EST, Height, 71.1, kg, 05/01/22 9:47:00 EST, DryWeight Start Date: 07/05/22 Status: Ordered Incruse Ellipta 62.5 mcg/inh inhalation powder 1 puffs, Inhalation, Every 24 hours, APART., # 30 each, 6 Refills, Maintenance, 08/07/22 7:23:00 EDT, [facility] #[id number], 153, cm, 08/03/22 11:04:00 EDT, Height, 73.5, [...] 04/19/22 9:44:00 EST, Route to Pharmacy Electronically, [facility] #[id number], 153, cm, 04/06/22 4:32:00 EST, Height, 68.3, kg, 04/05/22 16:36:00 EST, Dry Weight Start Date: 04/19/22 Status: Ordered meloxicam 15 mg oral tablet 1 tablet, By Mouth, Daily, # 90 tablet, 1 Refills, Maintenance, 08/07/22 7:23:00 EDT, [facility] #[id number], 153, cm, 08/03/22 11:04:00 EDT, Height, 73.5, [...] 70, R29. 6 f please send to [phone] Thank you, Sanjay Carl DNP, WIRE BASKET MAKER-C, 2... Start Date: 05/01/22 Status: Ordered Ozempic 2 mg/3 mL (0.25 mg or 0.5 mg dose) subcutaneous solution = 0.5 mg, Subcutaneous Infusion, Every 7 days, # 4 each, 3 Refills, Maintenance, 08/02/22 11:52:00 EDT, [facility] #[id number], Partial fill upon patient request if the [...] tablet, 0 Refills, Maintenance, 02/09/22 7:37:00 EDT, [facility] #[id number], 153, cm, 01/26/22 11:24:00 EDT, Height, 69.4, [...] Personnel Name: Rose Marie Andersen RN Position: [facility] RN Member Role: Primary Care Nurse Name: Sanjay Carl NP Position: [facility] Associate Professional Member Role: PCP Address: Address: [address] [place] [address]- Name: Nicole Clark RN Position: [facility] PCO RN Member Role: Primary Care [...] Role: Lifetime Consulting Physician Address: Address: [address] [place] [address], [address] [facility] [place], [place] [address] Name: Loren Shaffer RN Position: [facility] RN Member Role: Primary Care Nurse Name: Kelly Butt RN Position: S RN Member Role: Primary Care Nurse Name: Pauline Levy RN Position: [facility] ED RN W/OE and Tasks Member Role: Primary Care Nurse Name: Mamie Mccain RN Position: S RN Member Role: Primary Care Nurse Name: Viola Michelle Position: [facility] PCO RN Member Role: Lifetime Consulting Physician Name: Torito Benoit MD Position: [facility] Renal MD Member Role: Lifetime Consulting Physician Address: Address: [address] [place] [address] [address] [facility] [place] [address]- Name: Katina Alanis RN Position: [facility] RN Member Role: Primary Care Nurse Name: Jennifer Ochoa MD Position: [facility] Physician -Physician Practices Member Role: Lifetime Consulting Physician Address: Address: [address] [place] [address] Name: Sarabjit Cortez MD Position: [facility] Renal MD Member Role: Lifetime Consulting Physician Address: Address: [address] [place] [address] [facility] [place] [address]- Name: Pamela Wang RN Position: [facility] RN Member Role: Primary Care Nurse Name: Barbara Lee RN Position: S RN Member Role: Primary Care Nurse Name: Sharee Bui RN Position: S RN Member Role: Primary Care Nurse Name: Yessenia Arnold RN Position: S RN Member Role: Primary Care Nurse Care Team Related Persons Name: STEFANI MALDONADO Address: home [address] [place] [address]
--- OUTSIDE RECORDS SUMMARY | 2023-02-12 09:33 | XMS_ITS | Continuity of Care Document ---
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 sulfonamides hives Active sulfa drugs hives Active Ceclor hives Active Immunizations Given and Recorded Vaccine Date Status Refusal Reason [id number]-1iPAF 12y+ bivalent booster vax 03/01/22 Recorded influenza [...] inactivated 1 05/02/09 Gi yousif SARS-CoV-2 mRNA (xjrhdbc-udbr-vcgiy) vax 11/03/21 Given SARS-CoV-2 mRNA (rnyxrmo-iydm-ptlbl) vax 11/03/21 Recorded SARS-CoV-2 (COVID-19) mRNA BNT-162b2 [...] H1N1, inactive(oldterm) 3 07/19/09 Given 1Result Comment: [id number] 2Result Comment: [id number] 3Result Comment: september 22 [id number] Medications albuterol CFC free 90 mcg/inh inhalation aerosol 2, puffs, Inhalation, Every 6 hours, PRN, # 1 each, Refills 9, Tot. Refills 9, Maintenance, 05/01/22 10:18:00 EST, Aerosol, Route to Pharmacy Electronically, [id number], [facility] #[id number], 153, cm, 05/01/22 9:47:00... Start Date: 05/01/22 [...] 12/05/21 18:14:00 EDT, Route to Pharmacy Electronically, [facility] #[id number], Partial fill upon patientrequest if the prescription is for a schedule II op... Start Date: 12/05/21 Status: Ordered atorvastatin 40 mg oral tablet 1 tablet, By Mouth, Daily, # 30 tablet, 11 Refills, Maintenance, 07/07/22 8:17:00 EDT, [facility] #[id number], 153, cm, 06/15/22 11:28:00 EST, Height, 71.1, [...] 4GM LGHT POW PK 60S CHOLESTYRAMINE 4GM [facility] PK 60S, 1, pack/packet, By Mouth, 2 times a day, # 60 each, 0 Refills, Maintenance, 05/28/22 8:55:00 EST, 153, cm, 05/01/22 9:47:00 EST, Height, 71.1, kg, 05/01/22 9:47:00EST, Dry Weight Start Date: 05/28/22 Status: Ordered CHOLESTYRAMINE 4GM [facility] POW PK 60S CHOLESTYRAMINE 4GM [facility] PK 60S, 1, pack/packet, By [...] 0 Refills, Maintenance, 02/10/22 17:06:00 EDT, Tablet, [facility] #[id number], Partial fill upon patient request if the prescription is for a schedule II opioid drug. Start Date: 02/10/22 Status: Ordered DilTIAZem (Eqv-Cardizem CD) 240 mg/24 hours oral capsule, extended release 1 capsule, By Mouth, Daily, # 90 capsule, 0 Refills, Maintenance, 12/03/22 21:45:00 EDT, [facility] #[id number], 160, cm, 11/27/22 11:52:00 EDT, Height, 65, [...] day, 0 Refills, Maintenance, 02/07/22 23:47:00 EDT, [place], ; Start Date: 02/07/22 Status: Ordered gabapentin 600 mg oral tablet 1 tablet, By Mouth, 4 times a day, # 360 tablet, 1 Refills, Maintenance, 12/27/22 7:05:00 EDT, [facility] #[id number], 153, cm, 12/10/22 11:16:00 EDT, Height, 65, kg, 10/30/22 18:20:00 EDT, Dry Weight Start Date: 12/27/22 Status: Ordered Incruse Ellipta 62.5 mcg/inh inhalation powder 1 puffs, Inhalation, Every 24 hours, APART., # 30 each, 6 Refills, Maintenance, 08/07/22 7:23:00 EDT, [facility] #[id number], 153, cm, 08/03/22 11:04:00 EDT, Height, 73.5, [...] 3 Refills, Maintenance, 11/29/22 12:53:00 EDT, Tablet, [facility] #[id number], Partial fill upon patient request if the prescription is for a schedule I... Start Date: 11/29/22 Status: Ordered loratadine 10 mg oral tablet 1, tablet, By Mouth, Daily, # 90 tablet, Refills 1, Tot. Refills 1, Maintenance, 09/20/22 15:11:00 EDT, Route to Pharmacy Electronically, [facility] #[id number], 153, cm, 09/20/22 14:55:00 EDT, Height, 73.5, kg, 08/03/22 11:04:00 EDT, Dry Weight Start Date: 09/20/22 Status: Ordered meloxicam 15 mg oral tablet 1 tablet, By Mouth, Daily, # 90 tablet, 1 Refills, Maintenance, 08/07/22 7:23:00 EDT, [facility] #[id number], 153, cm, 08/03/22 11:04:00 EDT, Height, 73.5, [...] 70, R29. 6 f please send to [phone] Thank you, Sanjay Carl DNP, RESIDENTIAL SUPPORT WORKER-C, ... Start Date: 05/01/22 Status: Ordered Ozempic 2 mg/3 mL (0.25 mg or 0.5 mg dose) subcutaneous solution See Instructions, INJECT 0.5MG SUBCUTANEOUSLY EVERY 7 DAYS, # 3 mL, 0 Refills, Maintenance, 12/12/22 9:52:00 EDT, [facility] #[id number], 153, cm, 12/10/22 11:16:00 EDT, Height, 65, [...] tablet, 0 Refills, Maintenance, 11/29/22 7:33:00 EDT, [facility] #[id number], 160, cm, 11/27/22 11:52:00 EDT, Height, 65, [...] capsule, 3 Refills, Maintenance, 10/01/22 14:36:00 EDT, [facility] #[id number], 153, cm, 09/20/22 14:55:00 EDT, Height, 73.5, [...] thrush Confirmed Active Chronic diarrhea- followed by [facility] GI 1 Confirmed Active COPD [...] Briceno 4 Confirmed Active Hypothyroidism-follow ed by [facility] Endo Confirmed Active Leg length [...] Team Personnel Name: Sanjay Carl NP Position: [facility] Associate Professional Member Role: PCP Address: Address: [address] [place] [address]- Name: Nicole Clark RN Position: [facility] Nurse Member Role: Primary Care Nurse Name: Susy Key RN Position: [facility] RN Member Role: Primary Care Nurse Name: Xenia Schmid RN Position: [facility] RN Member Role: Primary Care Nurse Name: Roby Burton RN Position: [facility] RN Member Role: Primary Care Nurse Name: Adam Briceno MD Position: [facility] Renal MD Member Role: Lifetime Consulting Physician Address: Address: [address] [place] [address], [address] [facility] [place] [address]- [place] Name: Loren Shaffer RN Position: S [...] Consulting Physician Name: Khadijah Stearns RN Position: [facility] SN RN Member Role: Primary Care Nurse Name: Torito Beonit MD Position: [facility] Renal MD Member Role: Lifetime Consulting Physician Address: Address: [address] [place] [address] [address] [facility] [place] [address]- Name: Katina Alanis RN Position: [facility] RN Member Role: Primary Care Nurse Name: Jennifer Ochoa MD Position: [facility] Physician -Physician Practices Member Role: Lifetime Consulting Physician Address: Address: [address] [place] [address]- [place] Name: Sarabjit Cortez MD Position: [facility] Renal MD Member Role: Lifetime Consulting Physician Address: Address: [address] [place] [address] [facility] [place] [address]- Name: Pamela Wang RN Position: S RN Member Role: Primary Care Nurse Name: Barbara Lee RN Position: S RN Member Role: Primary Care Nurse Name: Sharee Bui RN Position: S RN Member Role: Primary Care Nurse Name: Yessenia Arnold RN Position: S RN Member Role: Primary Care Nurse Care Team Related Persons Name: ERICASTEFANI Address: [place] [address]
--- OUTSIDE RECORDS SUMMARY | 2023-02-12 09:34 | XMS_ITS | Continuity of Care Document ---
Author Name Unknown Organization [facility] Address [address] [place] [id number]- Care Team Providers Care [employer] Sergeant Name Role Phone Siddhartha MURILLO, Sanjay Primary Care Physician [phone] Encounter [facility] Date(s): 08/07/22 - 09/06/[address] [address]- Allergies, Adverse Reactions, Alerts Substance Reaction Severity [...] inactivated 1 05/02/09 Gi yousif SARS-CoV-2 mRNA (dhldisq-tlni-tnksp) vax 11/03/21 Given SARS-CoV-2 mRNA (enunwym-erte-vttsn) vax 11/03/21 Recorded SARS-CoV-2 (COVID-19) mRNA BNT-162b2 [...] H1N1, inactive(oldterm) 3 07/19/09 Given 1Result Comment: [id number] 2Result Comment: [id number] 3Result Comment: september 22 [id number] Medications albuterol CFC free 90 mcg/inh inhalation aerosol 2, puffs, Inhalation, Every 6 hours, PRN, # 1 each, Refills 9, Tot. Refills 9, Maintenance, 05/01/22 10:18:00 EST, Aerosol, Route to Pharmacy Electronically, [id number], [facility] #[id number], 153, cm, 05/01/22 9:47:00... Start Date: 05/01/22 [...] 12/05/21 18:14:00 EDT, Route to Pharmacy Electronically, [facility] #[id number], Partial fill upon patientrequest if the prescription is for a schedule II op... Start Date: 12/05/21 Status: Ordered atorvastatin 40 mg oral tablet 1 tablet, By Mouth, Daily, # 30 tablet, 11 Refills, Maintenance, 07/07/22 8:17:00 EDT, [facility] #[id number], 153, cm, 06/15/22 11:28:00 EST, Height, 71.1, [...] 4GM LGHT POW PK 60S CHOLESTYRAMINE 4GM [facility] POW PK 60S, 1, pack/packet, By Mouth, [...] 0 Refills, Maintenance, 02/10/22 17:06:00 EDT, Tablet, [facility] #[id number], Partial fill upon patient request if the prescription is for a schedule II opioid drug. Start Date: 02/10/22 Status: Ordered DilTIAZem (Eqv-Cardizem CD) 240 mg/24 hours oral capsule, extended release 1 capsule, By Mouth, Daily, # 90 capsule, 0 Refills, Maintenance, 06/18/22 14:31:00 EST, [facility] #[id number], 153, cm, 06/15/22 11:28:00 EST, Height, 71.1, [...] day, 0 Refills, Maintenance, 02/07/22 23:47:00 EDT, [place], ; Start Date: 02/07/22 Status: Ordered gabapentin 600 mg oral tablet 1 tablet, By Mouth, 4 times a day, # 360 tablet, 0 Refills, Maintenance, 07/05/22 9:26:00 EDT, [facility] #[id number], 153, cm, 06/15/22 11:28:00 EST, Height, 71.1, kg, 05/01/22 9:47:00 EST, DryWeight Start Date: 07/05/22 Status: Ordered Incruse Ellipta 62.5 mcg/inh inhalation powder 1 puffs, Inhalation, Every 24 hours, APART., # 30 each, 6 Refills, Maintenance, 08/07/22 7:23:00 EDT, [facility] #[id number], 153, cm, 08/03/22 11:04:00 EDT, Height, 73.5, [...] 04/19/22 9:44:00 EST, Route to Pharmacy Electronically, [facility] #[id number], 153, cm, 04/06/22 4:32:00 EST, Height, 68.3, kg, 04/05/22 16:36:00 EST, Dry Weight Start Date: 04/19/22 Status: Ordered meloxicam 15 mg oral tablet 1 tablet, By Mouth, Daily, # 90 tablet, 1 Refills, Maintenance, 08/07/22 7:23:00 EDT, [facility] #[id number], 153, cm, 08/03/22 11:04:00 EDT, Height, 73.5, [...] 70, R29. 6 f please send to [phone] Thank you, Sanjay Carl DNP, LIMITED RADIOLOGY TECHNICIAN-C, ... Start Date: 05/01/22 Status: Ordered Ozempic 2 mg/3 mL (0.25 mg or 0.5 mg dose) subcutaneous solution = 0.5 mg, Subcutaneous Infusion, Every 7 days, # 4 each, 3 Refills, Maintenance, 08/02/22 11:52:00 EDT, [facility] #[id number], Partial fill upon patient request if the [...] tablet, 1 Refills, Maintenance, 08/22/22 10:27:00 EDT, [facility] #[id number], 153, cm, 08/07/22 15:05:00 EDT, Height, 73.5, [...] Professional Member Role: PCP Address: Address: [address] [place] [address] Name: Nicole Clark RN Position: [facility] PCO RN Member Role: Primary Care [...] Member Role: Lifetime Consulting Physician Address: Address: [address] [place] [address], [address] [facility] [address] Name: Loren Shaffer RN Position: S [...] Member Role: Lifetime Consulting Physician Address: Address: [address] [place] [address] [address] [facility] [place] [address]- Name: Katina Alanis RN Position: [facility] RN Member Role: Primary Care Nurse Name: Jennifer Ochoa MD Position: [facility] Physician -Physician Practices Member Role: Lifetime Consulting Physician Address: Address: [address] [place] [id number]- Name: Sarabjit Cortez MD Position: [facility] Renal MD Member Role: Lifetime Consulting Physician Address: Address: [address] [place] [address] [facility] [place] [address]- Name: Pamela Wang RN Position: [facility] RN Member Role: Primary Care Nurse Name: Barbara Lee RN Position: S RN Member Role: Primary Care Nurse Name: Sharee Bui RN Position: [facility] RN Member Role: Primary Care Nurse Name: Yessenia Arnold RN Position: [facility] RN Member Role: Primary Care Nurse Care Team Related Persons Name: ERICA STEFANI Address: home [address] [place] [address]
[2023-02-12 09:54] VITALS: BP 100/62; BP 102/60; PULSE 68; PULSE 69; RESP 12; O2SAT 98; O2SAT 99; BMI 27.2
== END 2023-02-12 10:51 | disposition home or self-care (01) ==
LOC: HO.PMCPRC 09:18
PROVIDERS: PCP Nurse Practitioner Family; Visit Provider Anesthesiology
DX: M53.3 Sacrococcygeal disorders, not elsewhere classified (principal)
CPT/HCPCS: 64999; 76000

== ENCOUNTER 2023-02-20 10:58 | Outpatient (AMB) | payer OTHER, SELFPAY ==
[2023-02-20 11:11] VITALS: BP 124/70; PULSE 81; BMI 28.0
--- NOTE | 2023-02-20 11:11 | HO.NEPHOV ---
HPI HPI Comments History of Present Illness Details I had the privilege of seeing Sanjay in follow-up of her hyponatremia and hypertension. She had taken demeclocycline the past. She has no new weakness or mentation changes. She has no edema, shortness of breath or orthostatic symptoms. She does not have any nausea, vomiting or diarrhea. She is still taking sodium chloride tablet 1 g a day. She has not had any new other medication changes lately. She feels dry in her mouth as a side effect of her other medications and is not very compliant with her fluid restriction. She is on levothyroxine 150 mcg daily and feels that her thyroid function is at goal. She denies any other new complaints during this office visit. [facility] Medical History (Updated 02/20/23 @ 13:33 by Adam Briceno MD) COVID-19 vaccine series completed Back pain GERD (gastroesophageal reflux disease) Vertigo Anemia Hyponatremia Fracture of left femur Smoker Thyroid disease Asthma Schizoaffective disorder Hepatitis COPD (chronic obstructive pulmonary disease) Elevated cholesterol HTN (hypertension) Surgical History S/P hardware removal Hx of elbow surgery History of pubovaginal sling History of esophagogastroduodenoscopy (EGD) Hx of colonoscopy History of appendectomy History of hip surgery Social History Household Members Other:: CONTENT DIRECTOR Are you a primary resident care manager rn to a significant other at home: No Do you presently have visiting nurse or other home services: Yes (CONTENT DIRECTOR) Patient Tobacco Use Status: Current everyday Tobacco user Tobacco use type: Cigarette Cigarette Packs Per Day: 0.25 Cigarettes Per Day: 2 Years Smoked: 46 On Nicotene patch and lozengers to quit smoking started 2 weeks ago Second Hand Smoke Exposure: Yes Advance Directives Date on File: 05/27/20 Vital Signs 02/20/23 11:11 Height 5 ft Weight 143 lb 6 oz BMI 28.0 BP 124/70 Blood Pressure Location Lt brachial Position Sitting Pulse 81 Pulse Source Pulse Oximeter Physical Exam Vital Signs: Last Vital Signs Pulse 81 02/20/23 11:11 BP 124/70 02/20/23 11:11 BMI result Body Mass Index 28.0 Const General: comfortable and no acute distress Orientation/consciousness: patient oriented x3 HEENT Head: Yes normocephalic Mouth: Normal oral and palatal mucosa present Eyes EOM: EOMs intact bilaterally Neck Neck: Yes supple Resp Auscultation: clear to auscultation bilaterally Cardio Jugular venous distension: no JVD Rate: regular rate Heart sounds: Murmur heart sound present GI Palpation (GI): Soft to palpation Auscultation: normal bowel sounds General: Yes no CVA tenderness Back/Spine/Pelvis Back: no CVA tenderness Skin General skin exam: no rashes or lesions noted Neuro General: patient oriented x3 and moves all extremities Extrem General: Yes no pedal edema Assessment & Plan Assessment & Plan (1) Hyponatremia: Code(s): E87.1 - Hypo-osmolality and hyponatremia (2) HTN (hypertension): Code(s): I10 - Essential (primary) hypertension Qualifiers: Hypertension type: primary hypertension Qualified Code(s): I10 - Essential (primary) hypertension Plan Rhona has some hyponatremia due to excess ADH. Her volume status is quite optimal. She has no orthostatic symptoms or any symptoms which can potentially lead to volume depletion. She had taken demeclocycline the past which she had discontinued. She remains on oral sodium chloride tablet 1 g a day. She has no edema. Her blood pressure has been on goal on current medication regimen. She regularly follows up with her primary care physician. I did not make any medication changes today. All her questions were answered. Follow-up blood work ordered. Time spent for retrieving data, patient encounter and documentation 24 minutes. Orders: Orders Calcium Today E87.1 - Hypo-osmolality and hyponatremia, I10 - Essential (primary) hypertension Electrolytes Today E87.1 - Hypo-osmolality and hyponatremia, I10 - Essential (primary) hypertension Blood Urea Nitrogen Today E87.1 - Hypo-osmolality and hyponatremia, I10 - Essential (primary) hypertension Creatinine Today E87.1 - Hypo-osmolality and hyponatremia, I10 - Essential (primary) hypertension Coding Level of Care Code Est Pt Level 3 (04907) Diagnoses Hyponatremia E87.1 Primary hypertension I10 Hypertension type: primary hypertension
== END 2023-02-20 11:44 | disposition home or self-care (01) ==
PROVIDERS: PCP Nurse Practitioner Family; Visit Provider Internal Medicine Nephrology
DX: E87.1 Hypo-osmolality and hyponatremia (principal); I10 Essential (primary) hypertension
CPT/HCPCS: 99213

== ENCOUNTER → 2023-02-20 10:58 | Outpatient (BNVA) | payer OTHER, SELFPAY | PROVIDERS: PCP Nurse Practitioner Family; Visit Provider Internal Medicine Nephrology | DX: E87.1 Hypo-osmolality and hyponatremia (principal); I10 Essential (primary) hypertension | CPT/HCPCS: 99212 ==

== ENCOUNTER 2023-07-02 13:59 | Outpatient (AMB) | payer OTHER, SELFPAY ==
[2023-07-02 14:04] VITALS: BP 118/68; PULSE 78; O2SAT 99; BMI 28.7
--- NOTE | 2023-07-02 14:04 | HO.NEPHOV_ITS ---
HPI HPI Comments History of Present Illness Details I had the privilege of seeing Sanjay in follow-up of her hyponatremia and hypertension. 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 She had taken demeclocycline the past. She has no new weakness or mentation changes. She has no edema, shortness of breath or orthostatic symptoms. She does not have any nausea, vomiting or diarrhea. She is still taking sodium chloride tablet 1 g a day. She has not had any new other medication changes lately. She feels dry in her mouth as a side effect of her other medications and is not very compliant with her fluid restriction. She is on levothyroxine 150 mcg daily and feels that her thyroid function is at goal. She denies any other new complaints during this office visit. [facility] Medical History (Updated 02/20/23 @ 13:33 by Adam Briceno MD) COVID-19 vaccine series completed Back pain GERD (gastroesophageal reflux disease) Vertigo Anemia Hyponatremia Fracture of left femur Smoker Thyroid disease Asthma Schizoaffective disorder Hepatitis COPD (chronic obstructive pulmonary disease) Elevated cholesterol HTN (hypertension) Surgical History (Updated 07/02/23 @ 14:08 by Anastasia Marroquin) H/O skin graft S/P hardware removal Hx of elbow surgery History of pubovaginal sling History of esophagogastroduodenoscopy (EGD) Hx of colonoscopy History of appendectomy History of hip surgery Social History Household Members Other:: EMBALMER/FUNERAL DIRECTOR Are you a primary care management associate to a significant other at home: No Do you presently have visiting nurse or other home services: Yes (EMBALMER/FUNERAL DIRECTOR) Patient Tobacco Use Status: Current everyday Tobacco user Tobacco use type: Cigarette Cigarette Packs Per Day: 0.25 Cigarettes Per Day: 2 Years Smoked: 46 On Nicotene patch and lozengers to quit smoking started 2 weeks ago Second Hand Smoke Exposure: Yes Advance Directives Date on File: 05/27/20 Vital Signs 07/02/23 14:04 Height 5 ft Weight 147 lb BMI 28.7 BP 118/68 Blood Pressure Location Rt brachial Position Sitting Pulse 78 Pulse Source Pulse Oximeter Pulse Oximetry (%) 99 Oxygen Delivery Method Room Air Physical Exam Vital Signs: Last Vital Signs Pulse 78 07/02/23 14:04 BP 118/68 07/02/23 14:04 Pulse Ox 99 07/02/23 14:04 Oxygen Delivery Method Room Air 07/02/23 14:04 BMI result Body Mass Index 28.7 Const General: comfortable and no acute distress Orientation/consciousness: patient oriented x3 HEENT Head: Yes normocephalic Mouth: Normal oral and palatal mucosa present Eyes EOM: EOMs intact bilaterally Neck Neck: Yes supple Resp Auscultation: clear to auscultation bilaterally Cardio Jugular venous distension: no JVD Rate: regular rate GI Palpation (GI): Soft to palpation Auscultation: normal bowel sounds General: Yes no CVA tenderness Back/Spine/Pelvis Back: no CVA tenderness Skin General skin exam: no rashes or lesions noted Neuro General: patient oriented x3 and moves all extremities Extrem General: Yes no pedal edema Assessment & Plan Assessment & Plan (1) HTN (hypertension): Code(s): I10 - Essential (primary) hypertension Qualifiers: Hypertension type: primary hypertension Qualified Code(s): I10 - Essential (primary) hypertension (2) Hyponatremia: Code(s): E87.1 - Hypo-osmolality and hyponatremia Plan Rhona has some hyponatremia due to excess ADH. Her volume status is quite optimal. She has no orthostatic symptoms or any symptoms which can potentially lead to volume depletion. She had taken demeclocycline the past which she had discontinued. She remains on oral sodium chloride tablet 1 g a day. She has no edema. Her blood pressure has been on goal on current medication regimen. She regularly follows up with her primary care physician. I did not make any medication changes today. All her questions were answered. Follow-up blood work ordered. Orders: Orders Blood Urea Nitrogen Today E87.1 - Hypo-osmolality and hyponatremia, I10 - Essential (primary) hypertension Creatinine Today E87.1 - Hypo-osmolality and hyponatremia, I10 - Essential (primary) hypertension Electrolytes Today E87.1 - Hypo-osmolality and hyponatremia, I10 - Essential (primary) hypertension Coding Level of Care Code Est Pt Level 3 (47911) Diagnoses Primary hypertension I10 Hypertension type: primary hypertension Hyponatremia E87.1 Results Reviewed Nephrology Results: No Data to Display
== END 2023-07-02 14:27 | disposition home or self-care (01) ==
PROVIDERS: PCP Nurse Practitioner Family; Visit Provider Internal Medicine Nephrology
DX: I10 Essential (primary) hypertension (principal); E87.1 Hypo-osmolality and hyponatremia
CPT/HCPCS: 99213

== ENCOUNTER → 2023-07-02 13:59 | Outpatient (BNVA) | payer OTHER, SELFPAY | PROVIDERS: PCP Nurse Practitioner Family; Visit Provider Internal Medicine Nephrology | DX: I10 Essential (primary) hypertension (principal); E87.1 Hypo-osmolality and hyponatremia | CPT/HCPCS: 99212 ==

== ENCOUNTER 2024-02-11 15:34 | Outpatient (AMB) | payer OTHER, SELFPAY ==
--- NOTE | 2024-02-11 15:58 | HO.NEPHOV_ITS ---
Vital Signs 02/11/24 15:59 Height 5 ft Weight 143 lb 2 oz BMI 27.9 BP 110/62 Blood Pressure Location Lt brachial Position Sitting Pulse 74 Pulse Source Pulse Oximeter Pulse Oximetry (%) 96 Oxygen Delivery Method Room Air Intake Visit Reasons: R/S 12/26/2023- Conf Purchase Analyst Required: No Accompanied by: Self / Same As Patient Allergies succinylcholine Adverse Reaction (Severe, Verified 02/11/24 16:01) choline estrace deficiency cefaclor [From Ceclor] Adverse Reaction (Intermediate, Verified 02/11/24 16:01) hives Penicillins Adverse Reaction (Intermediate, Verified 02/11/24 16:01) hives Sulfa (Sulfonamide Antibiotics) Adverse Reaction (Intermediate, Verified 02/11/24 16:01) hives Tetanus Vaccines and Toxoid Adverse Reaction (Verified 02/11/24 16:01) Hemiparesis HPI Comments Details: Rhona was seen in follow-up of her hyponatremia and hypertension. 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 She had taken demeclocycline the past. She has no new weakness or mentation changes. She has no edema, shortness of breath or orthostatic symptoms. She does not have any nausea, vomiting or diarrhea. She is still taking sodium chloride tablet 1 g a day. She has not had any new other medication changes lately. She is on levothyroxine 150 mcg daily and feels that her thyroid function is at goal. She denies any other new complaints during this office visit [facility] Medical History (Updated 02/20/23 @ 13:33 by Adam Briceno MD) COVID-19 vaccine series completed Back pain GERD (gastroesophageal reflux disease) Vertigo Anemia Hyponatremia Fracture of left femur Smoker Thyroid disease Asthma Schizoaffective disorder Hepatitis COPD (chronic obstructive pulmonary disease) Elevated cholesterol HTN (hypertension) Surgical History H/O skin graft S/P hardware removal Hx of elbow surgery History of pubovaginal sling History of esophagogastroduodenoscopy (EGD) Hx of colonoscopy History of appendectomy History of hip surgery Social History 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 Are you a primary childcare provider to a significant other at home: No Do you presently have visiting nurse or other home services: Yes (SHOE DRESSER) Patient Tobacco Use Status: Current everyday Tobacco user Tobacco use type: Cigarette Cigarette Packs Per Day: 0.25 Cigarettes Per Day: 2 Years Smoked: 46 On Nicotene patch and lozengers to quit smoking started 2 weeks ago Second Hand Smoke Exposure: Yes Advance Directives Date on File: 05/27/20 Review of Systems Const All systems reviewed & are unremarkable except as noted in HPI and below Physical Exam Vital Signs: Last Vital Signs Pulse 74 02/11/24 15:59 BP 110/62 02/11/24 15:59 Pulse Ox 96 02/11/24 15:59 Oxygen Delivery Method Room Air 02/11/24 15:59 BMI result Body Mass Index 27.9 Const General: comfortable and no acute distress Orientation/consciousness: patient oriented x3 HEENT Head: Yes normocephalic Mouth: Normal oral and palatal mucosa present Eyes EOM: EOMs intact bilaterally Neck Neck: Yes supple Resp Auscultation: clear to auscultation bilaterally Cardio Jugular venous distension: no JVD Rate: regular rate GI Palpation (GI): Soft to palpation Auscultation: normal bowel sounds General: Yes no CVA tenderness Back/Spine/Pelvis Back: no CVA tenderness Skin General skin exam: no rashes or lesions noted Neuro General: patient oriented x3 and moves all extremities Extrem General: Yes no pedal edema Results Reviewed Nephrology Results: No Data to Display Assessment & Plan Assessment & Plan (1) Hyponatremia: Code(s): E87.1 - Hypo-osmolality and hyponatremia Category: Medical (2) HTN (hypertension): Code(s): I10 - Essential (primary) hypertension Category: Medical Qualifiers: Hypertension type: primary hypertension Qualified Code(s): I10 - Essential (primary) hypertension Plan Rhona has some hyponatremia due to excess ADH. Her volume status is quite optimal. She has no orthostatic symptoms or any symptoms which can potentially lead to volume depletion. She had taken demeclocycline the past which she had discontinued. She remains on oral sodium chloride tablet 1 g a day. She has no edema. Her blood pressure has been on goal on current medication regimen. She regularly follows up with her primary care physician. I did not make any medication changes today. All her questions were answered. Follow-up blood work ordered. Orders: Orders Electrolytes 6 Months E87.1 - Hypo-osmolality and hyponatremia, I10 - Essential (primary) hypertension Creatinine 6 Months E87.1 - Hypo-osmolality and hyponatremia, I10 - Essential (primary) hypertension Blood Urea Nitrogen 6 Months E87.1 - Hypo-osmolality and hyponatremia, I10 - Essential (primary) hypertension Medications: Refilled sodium chloride 1,000 mg PO DAILY 90 tabs 3RF Coding Level of Care Code Est Pt Level 4 (22557) Diagnoses Hyponatremia E87.1 Primary hypertension I10 Hypertension type: primary hypertension
[2024-02-11 15:59] VITALS: BP 110/62; PULSE 74; O2SAT 96; BMI 27.9
== END 2024-02-11 16:13 | disposition home or self-care (01) ==
LOC: HO.HKAS 15:35
PROVIDERS: PCP Nurse Practitioner Family; Visit Provider Internal Medicine Nephrology
DX: E87.1 Hypo-osmolality and hyponatremia (principal); I10 Essential (primary) hypertension
CPT/HCPCS: 99214

== ENCOUNTER → 2024-02-11 15:34 | Outpatient (BNVA) | payer OTHER, SELFPAY | PROVIDERS: PCP Nurse Practitioner Family; Visit Provider Internal Medicine Nephrology | DX: I10 Essential (primary) hypertension (principal); E87.1 Hypo-osmolality and hyponatremia | CPT/HCPCS: 99212 ==

== ENCOUNTER 2024-05-07 15:02 | Outpatient (AMB) | payer OTHER, SELFPAY ==
[2024-05-07 15:12] VITALS: BP 168/77; PULSE 80; BMI 27.3
--- NOTE | 2024-05-07 15:12 | A.OFFVIS_ITS ---
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 She complains on pain in the lower back. In the past she was very successfully treated for lower back pain with sprint PNS. It was performed on 01/09/2022 and resulted in very good pain relief. I am planning to schedule her for repeat of the procedure. This time I will perform bilateral L5 sprint PNS to help her intractable lower back pain. She also complains on multiple problems including anxiety, severe tremor, headaches. I will refer her to neurologist. She also was once complaining in this office on coccydynia. However ganglion impar injection which was offered to the patient went unsuccessful because of the calcified ligaments on anterior surface of the coccygeal spine. Prior: right L5 Sprint PNS 1 year ago 01/09/2022. 70% pain relief for her right sided back pain with notable improvement in her daily activities, functioning, sleep and social interactions. She does note that left sided back pain relief was much higher but still appreciates ongoing pain relief for right side. Patient continues to report excellent pain relieve on the left side, she reports better ability of performing activities of daily living, better social interactions, better mobility. Patient is looking forward that right side PNS trial will reach similar levels of pain relief. Patient will follow up next week with SPRINT rep to confirm functioning of her device and adjust program as needed. Patient reports she is also has been in contact with [employer] rep via telephone. PRIOR 01/01/22 Rhona is very pleasant 66 years old female who is in my office status post trial of PNS sprint on 10/31/2021. It was performed on the right side of the lumbar spine of the patient at the L4 versus L5 area. She reports that after 2 months of wearing device she experience excellent pain relief from the devices she reports better mobility better social interactions better activities of daily living. She is very happy with the treatment she received. 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 Are you a primary assistant child care teacher to a significant other at home: No Do you presently have visiting nurse or other home services: Yes (RESOURCE TEACHER) Patient Tobacco Use Status: Current everyday Tobacco user Tobacco use type: Cigarette Cigarette Packs Per Day: 0.25 Cigarettes Per Day: 2 Years Smoked: 44 On Nicotene patch and lozengers to quit smoking started 2 weeks ago Second Hand Smoke Exposure: Yes Advance Directives Date on File: 05/27/20 Review of Systems Const All systems reviewed & are unremarkable except as noted in HPI and below ENT Reports Normal hearing present Neuro Reports Normal hearing present, Denies Abnormal speech present and Denies confusion Psych Denies confusion Physical Exam Vital Signs: Last Vital Signs Pulse 80 05/07/24 15:12 BP 168/77 H 05/07/24 15:12 BMI result Body Mass Index 27.3 Const General: No confusion Orientation/consciousness: No confusion Resp Effort & Inspection: normal respiratory effort, able to speak in complete sentences and no audible wheezes Cardio Jugular venous distension: no JVD GI Inspection: Yes normal to inspection General: Yes no CVA tenderness Back/Spine/Pelvis Back: no CVA tenderness Thoracic/Lumbar Spine: thoraco-lumbar spasm and lumbar spinal tenderness Neuro General: No confusion Cranial nerves: Yes Normal hearing present Speech: No Abnormal speech present Assessment & Plan Assessment & Plan (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1 - Tremor, unspecified Category: Medical (7) Chronic headaches: Code(s): R51.9 - Headache, unspecified; G89.29 - Other chronic pain Category: Medical (8) Anxiety: Code(s): F41.9 - Anxiety disorder, unspecified Category: Medical Plan I will repeat left L2 and right L5 sprint PNS for this patient. This procedure was done 3 years ago with very good results for the patient. She does not complain on coccydynia today. She complains on headache, anxiety, severe hands tremor. I will schedule her for neurologist consult. Orders: Referrals Neurology Referral F41.9 - Anxiety disorder, unspecified, G89.29 - Other chronic pain, R25.1 - Tremor, unspecified, R51.9 - Headache, unspecified Coding Level of Care Code Est Pt Level 3 (66273) Diagnoses Spondylosis of lumbar region without myelopathy or radiculopathy M47.816 DDD (degenerative disc disease), lumbar M51.36 Head trauma S09.90XA Headache, post-traumatic G44.309 Coccydynia M53.3 Tremor of both hands R25.1 Chronic headaches R51.9; G89.29 Anxiety F41.9
== END 2024-05-07 15:29 | disposition home or self-care (01) ==
PROVIDERS: PCP Nurse Practitioner Family; Visit Provider Anesthesiology
DX: M47.816 Spondylosis without myelopathy or radiculopathy, lumbar region (principal); M51.369 Other intervertebral disc degeneration, lumbar region without mention of lumbar back pain or lower extremity pain; S09.90XA Unspecified injury of head, initial encounter; G44.309 Post-traumatic headache, unspecified, not intractable; M53.3 Sacrococcygeal disorders, not elsewhere classified; R25.1 Tremor, unspecified; R51.9 Headache, unspecified; G89.29 Other chronic pain; F41.9 Anxiety disorder, unspecified
CPT/HCPCS: 99214

== ENCOUNTER → 2024-05-07 15:02 | Outpatient (BNVA) | payer OTHER, SELFPAY | PROVIDERS: PCP Nurse Practitioner Family; Visit Provider Anesthesiology | DX: M47.816 Spondylosis without myelopathy or radiculopathy, lumbar region (principal); M51.360 Other intervertebral disc degeneration, lumbar region with discogenic back pain only; M53.3 Sacrococcygeal disorders, not elsewhere classified; G44.309 Post-traumatic headache, unspecified, not intractable; S09.90XD Unspecified injury of head, subsequent encounter; R25.1 Tremor, unspecified; R51.9 Headache, unspecified; F41.9 Anxiety disorder, unspecified; G89.29 Other chronic pain | CPT/HCPCS: 99212 ==

== ENCOUNTER 2024-09-10 15:08 | Outpatient (AMB) | payer OTHER, SELFPAY ==
--- OUTSIDE RECORDS SUMMARY | 2024-09-10 15:11 | XMS_ITS | Data Portability ---
Author Organization [place] - [facility] Address [address] [place] [id number] Care Team Providers Care Relief Cook Name Role Phone [facility] Primary Care Provider [facility] OTHER Assessment Encounter Date Assessment Date Assessment LastModified by Organization Details LastModified Time 01/07/2021 01/07/2021 Overview/History : Patient is an alert 66 year old patient who presents with flu/covid symptoms x 2 days. Medical history is significant for COPD for which she is not oxygen dependent. Her typical 02 level is over 94%. She does use her daily inhaler(s). Patient medical history significant for COPD, depression, anxiety, PTSD, anand, bipolar, hypothyroid, hyperlipidemia, HTN, PE, OA Exam: Afebrile 98.9. HRR 78, S1, S2. Moist mucous membranes, no lymphadenopathy. LS course/bilateral rhonchi throughout. No use of accessory muscles, speaking in short sentences. ABD SNT, + BS X 4. No CVA tenderness. Intact neuro exam. DDx considered, but not limited to: Asthma exacerbation considered, no history COPD exacerbation considered, cannot rule out, 02 sat 89% Flu considered, cannot rule out Covid considered, unlikely, vaccinated Covid pneumona considered Work up/Results: Exam Plan/Discussion: Given patient inability to maintain 0xygen level above 88-91% and suspicion for pneumonia, patient agreed to ED escalation for stat workup. med rec completed Proper Personal Protective Equipment (PPE), including gloves, eye protection, N95 mask, gown, and shoe covers were donned and doffed appropriately and all equipment cleaned using approved technique with germicidal disposable wipes prior to and after care of this patient according to [facility]'s infection prevention protocols. In order to obtain further information and compare any laboratory results/values, I have accessed old patient records. This information was pertinent in my medical decision making today. Not available 01/07/2021 16:40:11 Plan of Treatment Reminders Order Date Submit Date Provider Last Modified By Organization Details Last Modified Time Details Appointments None record ed. Lab None record ed. Referral None record ed. Procedures None record ed. Surgeries None record ed. Imaging None record ed. Medication Orders None record ed. Patient TargetsNo targets recorded. Patient InstructionsNo instructions recorded. Reason for Referral None Reported. Procedures Surgical History Date Name Laterality Status Provider Name and Address Organization Details Recorded Time Removal of ovarian cyst(s) completed Alivia Sorensen NP [address] [place], [address], [place] [facility] 01/07/2021 15:59:36 open reduction of fracture of femur completed Alivia Sorensen NP [address] [place], [address], [place] [facility] 01/07/2021 15:59:43 closed reduction of fracture of hip completed Alivia Sorensen NP [address] [place], [address], [place] [facility] 01/07/2021 15:59:51 Imaging Results None recorded. Procedure Notes None recorded. Medical Equipment None Reported. Allergies Allergen ID Allergen Name Allergen Category Reaction Reaction Severity Criticality Documentation Date Start Date Code Code System Note Provider Name and Address Organization Details Recorded Time [id number] Product containin g penicilli n (product) medicatio n Not available Not available Not available 01/07/2021 75657 8001 SNOMED Alivia Sorensen NP [address] [place], [address], [place] [facility] 15:53:47 [id number] Ceclor medicatio n Not available Not available Not available 01/07/202157887 5 RxNorm Alivia Sorensen NP [address], [place], [address], [place] [facility] 15:53:53 [id number] Substance with sulfonami de structure and antibacte rial mechanism of action (substanc e) medicatio n Not available Not available Not available 01/07/2021 47113 8003 SNOMED Alivia Sorensen, LIDIA [address] [place], [address] , [place] [facility] 15:54:00 Medications Name Sig Start Date Stop Date Status Note LastModified by Organization Details LastModified Time multiv women tab 50+ 01/07 completed Not Available Not Available Not Available multivitami n women 50 tablets TAKE 1 TABLET BY MOUTH ONCE A DAY FOR IMPROVED HEALTH AND HAPPINESS active Not Available Not Available No t Available atorvastati n 40 mg tablet TAKE 1 TABLET BY MOUTH DAILY active Not Available Not Available No t Available levothyroxi ne 175 mcg tablet TAKE 1 TABLET BY MOUTH DAILY active Not Available Not Available No t Available nitrofurant oin macrocrysta l 50 mg capsule TAKE 1 CAPSULE BY MOUTH EVERY DAY 01/07 completed Not Available Not Available Not Available gabapentin 600 mg tablet TAKE 1 TABLET BY MOUTH FOUR TIMES DAILY active Not Available Not Available No t Available loperamide 2 mg capsule TAKE 1 CAPSULE BY MOUTH EVERY 4 HOURS NEEDED FOR LOOSE STOOL active Not Available Not Available No t Available Nystop 100,000 unit/gram topical powder APPLY 1 APPLICATI ON TO THE AFFECTED AREA TWICE DAILY 01/07 completed Not Available Not Available Not Available diltiazem CD 240 mg capsule,ext ended release 24 hr TAKE 1 CAPSULE BY MOUTH DAILY active Not Available Not Available No t Available meloxicam 15 mg tablet TAKE 1 TABLET BY MOUTH DAILY active Not Available Not Available No t Available naltrexone 50 mg tablet TAKE 1 TABLET BY MOUTH EVERY MORNING active Not Available Not Available No t Available clonazepam 0.5 mg tablet TAKE 1 TABLET BY MOUTH DAILY FOR 14 DAYS AT THE TIME OF WORST ANXIETY 01/07 completed Not Available Not Available Not Available sodium chloride 1 gram tablet TAKE 1 TABLET BY MOUTH EVERY DAY active Not Available Not Available No t Available clonazepam 1 mg tablet TAKE 1 TABLET BY MOUTH THREE TIMES DAILY NEEDED. MAY TAKE AN ADDITIONA L HALF TABLET EVERY DAY NEEDED 01/07 completed Not Available Not Available Not Available tramadol 50 mg tablet TK 1 T PO Q 4 TO 6 H PRF PAIN active Not Available Not Available No t Available Cholestyram ine Light 4 gram powder for suspension in a packet MIX AND DRINK 4 GM BY MOUTH TWICE DAILY active Not Available Not Available No t Available baclofen 20 mg tablet TAKE 1 TABLET BY MOUTH FOUR TIMES DAILY active Not Available Not Available No t Available terbinafine HCl 250 mg tablet TAKE 1 TABLET BY MOUTH EVERY DAY FOR 14 DAYS active Not Available Not Available No t Available baclofen 10 mg tablet TAKE 1 TABLET BY MOUTH 4 TIMES DAILY NEEDED FOR MUSCLE SPASM 01/07 completed Not Available Not Available Not Available ropinirole 2 mg tablet TAKE 1 TABLET BY MOUTH EVERY EVENING active Not Available Not Available No t Available pantoprazol e 40 mg tablet,rico yed release TAKE 1 TABLET BY MOUTH DAILY active Not Available Not Available No t Available buspirone 30 mg tablet TAKE 1 TABLET BY MOUTH TWICE DAILY active Not Available Not Available No t Available clonazepam 2 mg tablet TAKE 1 TABLET BY MOUTH TWICE DAILY NEEDED active Not Available Not Available No t Available levothyroxi ne 150 mcg tablet TAKE 1 TABLET BY MOUTH DAILY 01/07 completed Not Available Not Available Not Available calcium 200 mg (as calcium carbonate 500 mg) chewable tablet CHEW 1 TABLET TWICE DAILY NEEDED active Not Available Not Available No t Available nicotine 21 mg/24 hr daily transdermal patch 01/07 completed Not Available Not Available Not Available hydroxyzine HCl 25 mg tablet TAKE 1 TABLET BY MOUTH TWICE DAILY active Not Available Not Available No t Available ammonium lactate 12 % topical cream APPLY 1 APPLICATI ON TWICE DAILY active Not Available Not Available No t Available polyethylen e glycol 3350 17 gram/dose oral powder DISSOLVE 17 GRAMS IN WATER AND DRINK DAILY FOR 7 DAYS active Not Available Not Available No t Available amitriptyli ne 100 mg tablet TAKE 1 TABLET BY MOUTH AT BEDTIME active Not Available Not Available No t Available loratadine 10 mg tablet TAKE 1 TABLET BY MOUTH DAILY active Not Available Not Available No t Available griseofulvi n ultramicros ize 250 mg tablet TAKE 1 TABLET BY MOUTH EVERY DAY AFTER A MEAL active Not Available Not Available No t Available buspirone 15 mg tablet TAKE 1 TABLET BY MOUTH TWICE DAILY 01/07 completed Not Available Not Available Not Available oxycodone 5 mg tablet TAKE 1 TABLET BY MOUTH FOUR TIMES DAILY NEEDED FOR SEVERE PAIN. DO NOT DRIVE WHILE TAKING THIS MEDICATIO N 01/07 completed Not Available Not Available Not Available cholecalcif rosalie (vitamin D3) 25 mcg (1,000 unit) capsule TAKE 1 CAPSULE BY MOUTH DAILY 01/07 completed Not Available Not Available Not Available aripiprazol e 20 mg tablet TAKE 1 TABLET BY MOUTH EVERY MORNING active Not Available Not Available No t Available FeroSul 325 mg (65 mg iron) tablet TAKE 1 TABLET BY MOUTH DAILY active Not Available Not Available No t Available desvenlafax ine succinate ER 100 mg tablet,exte nded release 24 hr TAKE 1 TABLET BY MOUTH EVERY MORNING active Not Available Not Available No t Available diclofenac 1 % topical gel DIRECTED BID TRANSDERM AL active Not Available Not Available No t Available Chantix Continuing Month Box 1 mg tablet TAKE 1 TABLET BY MOUTH TWICE DAILY FOR 12 WEEKS 01/07 completed Not Available Not Available Not Available Chantix Starting Month Box 0.5 mg (11)-1 mg (42) tablets in dose pack TAKE 1 TABLET BY MOUTH TWICE DAILY DIRECTED PER PACKAGE DIRECTION S 01/07 completed Not Available Not Available Not Available Myrbetriq 25 mg tablet,exte nded release TAKE 1 TABLET BY MOUTH ONCE A DAY active Not Available Not Available No t Available Incruse Ellipta 62.5 mcg/actuati on powder for inhalation INHALE 1 PUFF BY MOUTH EVERY 24 HOURS DOSES SHOULD BE TAKEN AT LEAST 24 HOURS APART active Not Available Not Available No t Available Therems-M 9 mg iron-400 mcg tablet active Not Available Not Available N ot Available Vitals Date Recorded Heart rate Oxygen saturation Oxygen saturation in Arterial blood by Pulse oximetry Respiratory rate Body temperature Systolic blood pressure Diastolic blood pressure Provider Name and Address Organization Details Last Updated DateTime 78 /min 91 % 91 % 20 /min 98.9 [degF] 124 mm[Hg] 76 mm[Hg] Not Available [facility] 15:55:18 Social History Question Answer Notes LastModified by Organizat ion Details LastModified Time Tobacco Smoking Status Current Every Day Smoker Alivia Sorensen, LIDIA [address], [place], [address], [place] [facility] 01/07/2021 15:57:59 Do You Have An Advance Directive? No Information not available 01/07/2021 What Is Your Code Status? Full Code Information not available 01/07/2021 Within The Past 12 Months, Has It Happened That The Food You Bought Just Didn't Last And You Didn't Have Money To Get More. No Information not available 01/07/2021 Within The Past 12 Months, Have You Worried That Your Food Would Run Out Before You Got Money To Buy More. No Information not available 01/07/2021 Fall Risk: Do You Feel Unsteady When Standing Or Walking? No Information not available 01/07/2021 We Know That How And When People Interact With Friends And Family Can Be Very Different From Person To Person. How Often Do You Have The Opportunity To See Or Talk To People That You Care About And Feel Close To? (Ex: Talking To Friends On The Phone Or Visiting Friends Or Family Or Going To Alevism Or Club Meetings) 1 Or 2 Times Per Week Information not available 01/07/2021 Excessive Alcohol Or Drug Use No Information not available 01/07/2021 Does This Patient Have A PCP? Yes Information not available 01/07/2021 We Know From Many Of Our Patients That Covering All Of Their Costs Can Be Difficult At Times. This Can Cause Stress And Impact Health. In The Past Year, Have You Been Unable To Get Any Of The Following When It Was Really Needed? No Information not available 01/07/2021 What Is Your Housing Situation Today? I Have Housing Information not available 01/07/2021 Would You Like Help Connecting To Resources? None Information not available 01/07/2021 How Many Years Have You Smoked Tobacco? 40 Information not available 01/07/2021 Sex: Unknown Functional Status Question Answer Note LastModified by Organizat ion Details LastModified Time Do you use any illicit or recreational drugs? No Information not available 01/07/2021 Do you or have you ever used any other forms of tobacco or nicotine? No Information not available 01/07/2021 What is your level of alcohol consumption? Occasional Information not available 01/07/2021 Mental Status None recorded. Family History Relationship Description Onset Age of this Age Resolved Age Notes LastModified by Organization Details LastModified Time Mother Hypertensive disorder Not available 2020 15:56:58 Mother Myocardial infarction Not available 01/07 15:57:17 Father Hyperlipidem ia Not available 2020 15:57:07 Medical History Condition Response Diabetes N Coronary Artery Disease N High Cholesterol Y Pulmonary Embolism Y Cancer N Hypertension Y Stroke N Asthma N COPD Y Depression Y Kidney Disease N Gynecological HistoryNo gynecological history recorded. Obstetrics History GPAL:G 0 P 0 0 0 0 Past Encounters Encounter ID Performer Location Encounter Start Date Encounter Closed Date Diagnosis/Indication Diagnosis SNOMED-CT Code Diagnosis ICD10 Code Diagnosis Note [id number] Alivia Sorensen NP [facility] [address] [place] [address] 01/07/2021 15:51:31 01/12/2021 17:24:04 Suspected COVID-19 755299819 Z03.89 Dyspnea 863509822 R06.00 Oxygen sat uration below reference range 631779820 R79.81 Health Concerns Section Related Observation LastModified by Organization Detai ls LastModified Time None Recorded Concern Status LastModified by Organization Details LastModified Time None Recorded Advance Directives Directive N: Payers Insurance Date Sequence Insurance Name Policy Number Policy Barba Covered Member ID Barba Member ID Guarantor Name 01/12/2021 1 [facility] - DOS PRIOR TO 2022 - DUAL ELIGIBLE (MEDICARE REPLACEMENT/ADV ANTAGE - HMO) Rhona Gandara [id number] Rhona Gandara 01/06/2021 1 *SELF PAY* Rhona Gandara [id number] Rhona Gandara Notes Date Note Type Note Provider Name and Address Organization Details Recorded Time 01/07/2021 text/html Patient is a 66 year old alert female who is new to and new to this provider. Patient chief complaint is congestion, productive cough, I feel like it's gone into my chest now. Patient has had symptoms since Malika night. Denies fever, denies CP, admits to feeling SOB. Denies travel, denies sick exposure. Alleviating factor is OTC Mucinex and cough and cold medicine. Aggravating factor is laying down. Patient medical history significant for COPD, depression, anxiety, PTSD, anand, bipolar, hypothyroid, hyperlipidemia, HTN, PE, OA Alivia Sorensen NP [address], [place], [address], [place] [facility] 01/07/2021 16:40:23 OBGyn Episode No OBEpisode recorded.
--- NOTE | 2024-09-10 15:14 | HO.NEPHOV ---
Vital Signs 09/10/24 15:20 Height 5 ft Weight 141 lb BMI 27.5 BP 140/80 H Blood Pressure Location Lt brachial Position Sitting Pulse 72 Pulse Source Pulse Oximeter Pulse Oximetry (%) 96 Oxygen Delivery Method Room Air Intake Visit Reasons: Sooner appt per MD Dynamo Tender Required: No Accompanied by: Self / Same As Patient Allergies succinylcholine Adverse Reaction (Severe, Verified 09/10/24 15:19) choline estrace deficiency cefaclor [From Ceclor] Adverse Reaction (Intermediate, Verified 09/10/24 15:19) hives Penicillins Adverse Reaction (Intermediate, Verified 09/10/24 15:19) hives Sulfa (Sulfonamide Antibiotics) Adverse Reaction (Intermediate, Verified 09/10/24 15:19) hives Tetanus Vaccines and Toxoid Adverse Reaction (Verified 09/10/24 15:19) Hemiparesis HPI Comments Details: Rhona was seen in follow-up of her hyponatremia and hypertension. She recently had a hospitalization for black stools and underwent endoscopy. She has Alcohol use disorder. She claims that her NaCl tabs were put on hold during her recent hospitalization. She is not strict with fluid restriction and drinks 5-10 beers a day and 1/2 gallon of vodka in 3 days. Her sodium after hospital D/C was 122. She had taken demeclocycline the past. She has no new weakness or mentation changes. She has no edema, shortness of breath or orthostatic symptoms. She does not have any nausea, vomiting or diarrhea. She is taking sodium chloride tablet 1 g a day.She denies any other new complaints during this office visit [facility] Medical History (Updated 05/07/24 @ 15:27 by Hector Ha MD) COVID-19 vaccine series completed Back pain GERD (gastroesophageal reflux disease) Vertigo Anemia Hyponatremia Fracture of left femur Smoker Thyroid disease Asthma Schizoaffective disorder Hepatitis COPD (chronic obstructive pulmonary disease) Elevated cholesterol HTN (hypertension) Surgical History H/O skin graft S/P hardware removal Hx of elbow surgery History of pubovaginal sling History of esophagogastroduodenoscopy (EGD) Hx of colonoscopy History of appendectomy History of hip surgery Social History Household Members 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 Are you a primary inpatient care manager rn to a significant other at home: No Do you presently have visiting nurse or other home services: Yes (FACILITY SPECIALIST) Patient Tobacco Use Status: Current everyday Tobacco user Tobacco use type: Cigarette Cigarette Packs Per Day: 0.25 Cigarettes Per Day: 2 Years Smoked: 44 On Nicotene patch and lozengers to quit smoking started 2 weeks ago Second Hand Smoke Exposure: Yes Advance Directives Date on File: 05/27/20 Review of Systems Const All systems reviewed & are unremarkable except as noted in HPI and below Physical Exam Vital Signs: Last Vital Signs Pulse 72 09/10/24 15:20 BP 140/80 H 09/10/24 15:20 Pulse Ox 96 09/10/24 15:20 Oxygen Delivery Method Room Air 09/10/24 15:20 BMI result Body Mass Index 27.5 Const General: comfortable and no acute distress Orientation/consciousness: patient oriented x3 HEENT Head: Yes normocephalic Mouth: Normal oral and palatal mucosa present Eyes EOM: EOMs intact bilaterally Neck Neck: Yes supple Resp Auscultation: clear to auscultation bilaterally Cardio Jugular venous distension: no JVD Rate: regular rate GI Palpation (GI): Soft to palpation Auscultation: normal bowel sounds General: Yes no CVA tenderness Back/Spine/Pelvis Back: no CVA tenderness Skin General skin exam: no rashes or lesions noted Neuro General: patient oriented x3 and moves all extremities Extrem General: Yes no pedal edema Results Reviewed Nephrology Results: No Data to Display Assessment & Plan Assessment & Plan (1) Hyponatremia: Code(s): E87.1 - Hypo-osmolality and hyponatremia Category: Medical (2) HTN (hypertension): Code(s): I10 - Essential (primary) hypertension Category: Medical Qualifiers: Hypertension type: primary hypertension Qualified Code(s): I10 - Essential (primary) hypertension Plan Rhona has some hyponatremia due to excess ADH. She is drinking excessively lately. Her volume status is quite optimal. She has no orthostatic symptoms or any symptoms which can potentially lead to volume depletion. She had taken demeclocycline the past which she had discontinued. I increased her oral sodium chloride tablet to 1 g three times a day for a week followed by maintenance of 1 Gram twice a day. She has no edema. Her blood pressure has been on goal on current medication regimen. All her questions were answered. Follow-up blood work ordered. Orders: Orders Creatinine 2 Weeks E87.1 - Hypo-osmolality and hyponatremia Blood Urea Nitrogen 2 Weeks E87.1 - Hypo-osmolality and hyponatremia Electrolytes 2 Weeks E87.1 - Hypo-osmolality and hyponatremia Medications: Changed From sodium chloride 1,000 mg PO DAILY 90 tabs 3RF To sodium chloride 1,000 mg PO TID 90 tabs 3RF Coding Level of Care Code Est Pt Level 4 (43058) Diagnoses Hyponatremia E87.1 Primary hypertension I10 Hypertension type: primary hypertension
[2024-09-10 15:20] VITALS: BP 140/80; PULSE 72; O2SAT 96; BMI 27.5
== END 2024-09-10 15:41 | disposition home or self-care (01) ==
LOC: HO.HKAS 15:09
PROVIDERS: PCP Nurse Practitioner Family; Visit Provider Internal Medicine Nephrology
DX: E87.1 Hypo-osmolality and hyponatremia (principal); I10 Essential (primary) hypertension
CPT/HCPCS: 99214

== ENCOUNTER → 2024-09-10 15:08 | Outpatient (BNVA) | payer OTHER, SELFPAY | PROVIDERS: PCP Nurse Practitioner Family; Visit Provider Internal Medicine Nephrology | DX: I10 Essential (primary) hypertension (principal); E87.1 Hypo-osmolality and hyponatremia | CPT/HCPCS: 99212 ==

== ENCOUNTER 2024-09-30 14:36 | Outpatient (AMB) | payer OTHER, SELFPAY ==
--- NOTE | 2024-09-30 14:47 | A.OFFVIS_ITS ---
Vital Signs 09/30/24 14:48 Height 5 ft Weight 146 lb BMI 28.5 BP 146/70 H Blood Pressure Location Lt brachial Position Sitting Respiration 20 Pulse 81 Pulse Source Pulse Oximeter Pulse Oximetry (%) 94 Oxygen Delivery Method Room Air Intake Visit Reasons: FOLLOW UP FOR BACK PAIN It Service Delivery Manager Required: No Allergies succinylcholine Adverse Reaction (Severe, Verified 09/30/24 14:46) choline estrace deficiency cefaclor (From Ceclor) Adverse Reaction (Intermediate, Verified 09/30/24 14:46) hives Penicillins Adverse Reaction (Intermediate, Verified 09/30/24 14:46) hives Sulfa (Sulfonamide Antibiotics) Adverse Reaction (Intermediate, Verified 09/30/24 14:46) hives Tetanus Vaccines and Toxoid Adverse Reaction (Verified 09/30/24 14:46) Hemiparesis HPI Comments Details: Rhona is back in my office again after 6 months of absence. I recommended the repetition of the sprint PNS as it was done in 2021 and unfortunately recently patient fell on her back. Now it is acute pain. She is scheduled to complete physical therapy. After completion of physical therapy I will invite her here and in 1 month we will discuss possibility of treatment of her pain with repeat of the sprint PNS. This time we will do bilateral L5 possible L4 possible S1 sprint PNS. Prior: right L5 Sprint PNS 1 year ago 01/09/2022. 70% pain relief for her right sided back pain with notable improvement in her daily activities, functioning, sleep and social interactions. She does note that left sided back pain relief was much higher but still appreciates ongoing pain relief for right side. Patient continues to report excellent pain relieve on the left side, she reports better ability of performing activities of daily living, better social interactions, better mobility. Patient is looking forward that right side PNS trial will reach similar levels of pain relief. Patient will follow up next week with [employer] rep to confirm functioning of her device and adjust program as needed. Patient reports she is also has been in contact with [employer] rep via telephone. PRIOR 01/01/22 Rhona is very pleasant 66 years old female who is in my office status post trial of PNS sprint on 10/31/2021. It was performed on the right side of the lumbar spine of the patient at the L4 versus L5 area. She reports that after 2 months of wearing device she experience excellent pain relief from the devices she reports better mobility better social interactions better activities of daily living. She is very happy with the treatment she received. [facility] Medical History (Updated 05/07/24 @ 15:27 by Hector Ha MD) COVID-19 vaccine series completed Back pain GERD (gastroesophageal reflux disease) Vertigo Anemia Hyponatremia Fracture of left femur Smoker Thyroid disease Asthma Schizoaffective disorder Hepatitis COPD (chronic obstructive pulmonary disease) Elevated cholesterol HTN (hypertension) Surgical History H/O skin graft S/P hardware removal Hx of elbow surgery History of pubovaginal sling History of esophagogastroduodenoscopy (EGD) Hx of colonoscopy History of appendectomy History of hip surgery Social History 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 Are you a primary health care facility administrator to a significant other at home: No Do you presently have visiting nurse or other home services: Yes (MANAGER CENTER) Patient Tobacco Use Status: Current everyday Tobacco user Tobacco use type: Cigarette Cigarette Packs Per Day: 0.25 Cigarettes Per Day: 2 Years Smoked: 46 On Nicotene patch and lozengers to quit smoking started 2 weeks ago Second Hand Smoke Exposure: Yes Advance Directives Date on File: 05/27/20 Review of Systems Const All systems reviewed & are unremarkable except as noted in HPI and below ENT Reports Normal hearing present Neuro Reports Normal hearing present, Denies Abnormal speech present and Denies confusion Psych Denies confusion Physical Exam Vital Signs: Last Vital Signs Pulse 81 09/30/24 14:48 Resp 20 09/30/24 14:48 BP 146/70 H 09/30/24 14:48 Pulse Ox 94 09/30/24 14:48 Oxygen Delivery Method Room Air 09/30/24 14:48 BMI result Body Mass Index 28.5 Const General: No confusion Orientation/consciousness: No confusion Resp Effort & Inspection: normal respiratory effort, able to speak in complete sentences and no audible wheezes Cardio Jugular venous distension: no JVD GI Inspection: Yes normal to inspection General: Yes no CVA tenderness Back/Spine/Pelvis Back: no CVA tenderness Thoracic/Lumbar Spine: thoraco-lumbar spasm and lumbar spinal tenderness Neuro General: No confusion Cranial nerves: Yes Normal hearing present Speech: No Abnormal speech present Assessment & Plan Assessment & Plan (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1 - Tremor, unspecified Category: Medical (7) Chronic headaches: Code(s): R51.9 - Headache, unspecified; G89.29 - Other chronic pain Category: Medical (8) Anxiety: Code(s): F41.9 - Anxiety disorder, unspecified Category: Medical Plan Felipa visited me in April 6 months ago and I recommended her to repeat sprint PNS. Unfortunately she fell and injured her back. Now she is referred to physical therapy. She had x-ray of the lower back lumbar spine performed and there were no fractures detected. When she will complete her physical therapy we will discuss repeat of the sprint PNS L5 possible L4 possible S1 bilateral. We agreed that she will visit me in 5 weeks after completion of physical therapy. Coding Level of Care Code Est Pt Level 3 (21034) Diagnoses Spondylosis of lumbar region without myelopathy or radiculopathy M47.816 DDD (degenerative disc disease), lumbar M51.36 Head trauma S09.90XA Headache, post-traumatic G44.309 Coccydynia M53.3 Tremor of both hands R25.1 Chronic headaches R51.9; G89.29 Anxiety F41.9
[2024-09-30 14:48] VITALS: BP 146/70; PULSE 81; RESP 20; O2SAT 94; BMI 28.5
--- OUTSIDE RECORDS SUMMARY | 2024-09-30 16:50 | XMS_ITS | Data Portability ---
Author Organization [place] [facility] Address [address] [place] [id number] Care Team Providers Care Supervisor Assembly Department Name Role Phone [facility] Primary Care Provider [facility] OTHER Assessment Encounter Date Assessment Date [...] after care of this patient according to [facility]'s infection prevention protocols. In order to [...] ovarian cyst(s) completed Alivia Sorensen NP [address] [place], [address], [place] [facility] 01/07/2021 15:59:36 open reduction of fracture of femur completed Alivia Sorensen NP [address] [place], [address], [place] [facility] 01/07/2021 15:59:43 closed reduction of fracture of hip completed Alivia Sorensen NP [address] [place], [address], [place] [facility] 01/07/2021 15:59:51 Imaging Results None recorded. Procedure Notes None recorded. Medical Equipment None Reported. Allergies Allergen ID Allergen Name Allergen Category Reaction Reaction Severity Criticality Documentation Date Start Date Code Code System Note Provider Name and Address Organization Details Recorded Time 432168 Product containin g penicilli n (product) medicatio n Not available Not available Not available 01/07/2021 35508 8001 SNOMED Alivia Sorensen NP [address] [place], [address], [place] [facility] 15:53:47 288446 Ceclor medicatio n Not available Not available Not available 01/07/202113305 5 RxNorm Alivia Sorensen NP [address], [place], [address], [place] [facility] 15:53:53 200132 Substance with sulfonami de structure and antibacte rial mechanism of action (substanc e) medicatio n Not available Not available Not available 01/07/2021 11244 8003 SNOMED Alivia Sorensen, LIDIA [address] [facility] [place], [address] , [place] [facility] 15:54:00 Medications Name [...] [degF] 124 mm[Hg] 76 mm[Hg] Not Available [facility] 15:55:18 Social History Question Answer Notes LastModified by Organizat ion Details LastModified Time Tobacco Smoking Status Current Every Day Smoker Alivia Sorensen, LIDIA [address], [place], [address], [place] [facility] 01/07/2021 15:57:59 Do You [...] Visiting Friends Or Family Or Going To [employer] Or Club Meetings) 1 Or 2 Times [...] Coronary Artery Disease N High Cholesterol Y Cancer N Pulmonary Embolism Y Stroke N Hypertension Y Asthma N COPD Y Depression Y Kidney Disease N Gynecological HistoryNo gynecological history recorded. Obstetrics History GPAL:G 0 P 0 0 0 0 Past Encounters Encounter ID Performer Location Encounter Start Date Encounter Closed Date Diagnosis/Indication Diagnosis SNOMED-CT Code Diagnosis ICD10 Code Diagnosis Note [id number] Alivia Sorensen NP [facility] [address] [place] [address] 01/07/2021 15:51:31 01/12/2021 17:24:04 Suspected COVID-19 049120989 Z03.89 Dyspnea 150235685 R06.00 Oxygen sat uration below reference range 279477244 R79.81 Health Concerns Section Related Observation LastModified by Organization Detai ls LastModified Time None Recorded Concern Status LastModified by Organization Details LastModified Time None Recorded Advance Directives Directive N: Payers Insurance Date Sequence Insurance Name Policy Number Policy Barba Covered Member ID Barba Member ID Guarantor Name 01/12/2021 1 [facility] - DOS PRIOR TO 2022 - DUAL ELIGIBLE (MEDICARE REPLACEMENT/ADV ANTAGE - HMO) Rhona Gandara [id number] Rhona Gandara 01/06/2021 1 *SELF PAY* Rhona Gandara [id number] Rhona Gandara Notes Date Note Type Note [...] OA Alivia Sorensen NP [address], [place], [address], [place] [facility] 01/07/2021 16:40:23 OBGyn Episode No OBEpisode recorded.
== END 2024-09-30 15:03 | disposition home or self-care (01) ==
LOC: HO.PMC 14:36
PROVIDERS: PCP Nurse Practitioner Family; Visit Provider Anesthesiology
DX: M47.816 Spondylosis without myelopathy or radiculopathy, lumbar region (principal); M51.369 Other intervertebral disc degeneration, lumbar region without mention of lumbar back pain or lower extremity pain; S09.90XA Unspecified injury of head, initial encounter; G44.309 Post-traumatic headache, unspecified, not intractable; M53.3 Sacrococcygeal disorders, not elsewhere classified; R25.1 Tremor, unspecified; R51.9 Headache, unspecified; G89.29 Other chronic pain; F41.9 Anxiety disorder, unspecified
CPT/HCPCS: 99213

== ENCOUNTER → 2024-09-30 14:36 | Outpatient (BNVA) | payer OTHER, SELFPAY | PROVIDERS: PCP Nurse Practitioner Family; Visit Provider Anesthesiology | DX: M47.816 Spondylosis without myelopathy or radiculopathy, lumbar region (principal); M51.360 Other intervertebral disc degeneration, lumbar region with discogenic back pain only; M53.3 Sacrococcygeal disorders, not elsewhere classified; R25.1 Tremor, unspecified; R51.9 Headache, unspecified; F41.9 Anxiety disorder, unspecified; S09.90XA Unspecified injury of head, initial encounter | CPT/HCPCS: 99212 ==

== ENCOUNTER 2024-10-14 14:54 | Outpatient (AMB) | payer OTHER, SELFPAY ==
--- NOTE | 2024-10-14 15:04 | A.OFFVIS_ITS ---
Vital Signs 10/14/24 15:05 Height 5 ft Weight 136 lb BMI 26.6 BP 140/72 H Blood Pressure Location Rt brachial Position Sitting Intake Visit Reasons: INP- Tremor/Headache Intake Note: Patient referred inhouse by Dr. Ha for tremors Allergies succinylcholine Adverse Reaction (Severe, Verified 10/14/24 15:07) choline estrace deficiency cefaclor (From Ceclor) Adverse Reaction (Intermediate, Verified 10/14/24 15:07) hives Penicillins Adverse Reaction (Intermediate, Verified 10/14/24 15:07) hives Sulfa (Sulfonamide Antibiotics) Adverse Reaction (Intermediate, Verified 10/14/24 15:07) hives Tetanus Vaccines and Toxoid Adverse Reaction (Verified 10/14/24 15:07) Hemiparesis Medication List - Last Reconciled 10/14/24 by Julia Hope MD albuterol sulfate 90 mcg/actuation (ProAir HFA) 2 puffs inhalation Q4-6H PRN amitriptyline 50 mg PO BEDTIME aripiprazole 20 mg PO QAM aspirin 81 mg PO DAILY atorvastatin 40 mg PO DAILY baclofen 20 mg PO QID 30 days buspirone 30 mg PO BID calcium carbonate (Calcium Antacid) 200 mg PO DAILY cholecalciferol (vitamin D3) (Vitamin D3) 50 mcg PO DAILY clonazepam mg PO TID diltiazem HCl CD 240 mg PO DAILY duloxetine 60 mg PO QAM ferrous sulfate mg PO DAILY fluticasone propionate 50 mcg/actuation 1 spray intranasal BID folic acid 1 mg PO DAILY gabapentin 600 mg PO QID levothyroxine 150 mcg PO DAILY loratadine 10 mg PO DAILY methenamine hippurate 1 g PO BID mirabegron ER 25 mg PO DAILY multivitamin with folic acid 400 mcg (Daily-Garry (with folic acid)) tabs PO naltrexone 50 mg PO QAM nicotine 1 patch topical DAILY pantoprazole (Protonix) 40 mg PO DAILY pyridoxine (vitamin B6) 50 mg PO DAILY sodium chloride 1,000 mg PO TID thiamine HCl (vitamin B1) 100 mg PO DAILY umeclidinium 62.5 mcg/actuation (Incruse Ellipta) 1 inh inhalation DAILY HPI Comments Details: 69y/o female with chronic exposure to neuroleptics comes for evaluation of abnormal involuntary movements and migraines. She has schizoaffective disorder and is on arpiprazole for over 10 years .she started noticing involuntary movements 2 years ago and has increased in frequency.she used to be on zyprexa along with Arpiprazole. She also has gait issues - frequent falls inspite of using a walker, SHe also has h/o chronic migraines - since teenage years. It is usually left temporoparietal intense pain with photophobia. phonophobia, nausea, visual aura ( sees lightning bolts) -c an last 1-3 days . she takes tylenol. 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 she has on and off alcohol abuse [facility] Medical History (Updated 10/14/24 @ 15:37 by Julia Hope MD) Alcohol abuse Drug abuse, IV Migraine with aura Neuroleptic-induced tardive dyskinesia COVID-19 vaccine series completed Back pain GERD (gastroesophageal reflux disease) Vertigo Anemia Hyponatremia Fracture of left femur Smoker Thyroid disease Asthma Schizoaffective disorder Hepatitis COPD (chronic obstructive pulmonary disease) Elevated cholesterol HTN (hypertension) Surgical History H/O skin graft S/P hardware removal Hx of elbow surgery History of pubovaginal sling History of esophagogastroduodenoscopy (EGD) Hx of colonoscopy History of appendectomy History of hip surgery Social History 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 Are you a primary cattle care worker to a significant other at home: No Do you presently have visiting nurse or other home services: Yes (BONSAI CULTURIST) Patient Tobacco Use Status: Current everyday Tobacco user Tobacco use type: Cigarette Cigarette Packs Per Day: 0.25 Cigarettes Per Day: 2 Years Smoked: 46 On Nicotene patch and lozengers to quit smoking started 2 weeks ago Second Hand Smoke Exposure: Yes Advance Directives Date on File: 05/27/20 Physical Exam Vital Signs: Last Vital Signs BP 140/72 H 10/14/24 15:05 BMI result Body Mass Index 26.6 Const General: cooperative, healthy appearing and no acute distress Nutritional Appearance: average body habitus Orientation/consciousness: patient oriented x3 Eyes Pupils: Equal, round and reactive pupils present Neuro Other: body rocking tongue and perioral movements abnormal leg movements Gait- slow wide based (has a walker ) FN- left dysmetria General: patient oriented x3 Cranial nerves: Yes Facial sensation intact/muscles of mastication intact, Yes Equal, round and reactive pupils present, Yes Bilaterally intact EOM present, Yes Nystagmus not present, Yes Normal facial strength present and Yes Midline tongue present Cognition (Neuro): normal cognition Motor exam (neuro): 5/5 motor strength present throughout and Normal motor muscle tone present throughout Deep tendon reflexes (DTR's): Right triceps reflex intensity grade: 1+, Left triceps reflex intensity grade: 1+, Rt Biceps (C5, C6): 1+, Left biceps reflex intensity grade: 1+, Right brachioradialis reflex intensity grade: 1+, Left brachioradialis reflex intensity grade: 1+, Right patellar reflex intensity grade: 1+ and Left patellar reflex intensity grade: 1+ Assessment & Plan Assessment & Plan (1) Neuroleptic-induced tardive dyskinesia: Comment: schizoaffective disorder, H/o IVDA ALcohol dependance Code(s): G24.01 - Drug induced subacute dyskinesia; T43.505A - Adverse effect of unspecified antipsychotics and neuroleptics, initial encounter Category: Medical (2) Migraine with aura: Code(s): G43.109 - Migraine with aura, not intractable, without status migrainosus Category: Medical Qualifiers: Status migrainosus presence: without status migrainosus Intractability: not intractable Qualified Code(s): G43.109 - Migraine with aura, not intractable, without status migrainosus Plan I will trial Austedo XR 6mg qd and titrate dose depending on her response. Magnesium 400 mg qhs for migraines Medications: New deutetrabenazine ER (Austedo XR) 6 mg PO DAILY 30 tabs 0RF magnesium oxide 400 mg PO DAILY 30 tabs 6RF Coding Level of Care Code New Pt Level 4 (12371) Complex EM visit Add On G2211 Diagnoses Neuroleptic-induced tardive dyskinesia G24.01; T43.505A Migraine with aura and without status migrainosus, not intractable G43.109 Status migrainosus presence: without status migrainosus Intractability: not intractable AIMS Questionnaire Abnormal Involuntary Movement Scale Muscles or Facial Expressions (movements of forehead, eyebrows, periorbital area, cheeks, including frowning, blinking, smiling, grimacing): 1 - Minimal, may be extreme normal Lips and Perioral Area (puckering, pouting, smacking): 2 - Mild Jaw (biting, clenching, chewing, mouth opening, lateral movement): 2 - Mild Tongue (rate only increases in movement both in and out of mouth. NOT inability to sustain movement. Darting in and out of mouth): 2 - Mild Upper-arms, wrists, hands, fingers (Include choreic movements; rapid, objectively purposeless, irregular, spontaneous. Athetoid movements; slow, irregular, complex, serpentine. DO NOT INCLUDE TREMOR: 1 - Minimal, may be extreme normal Lower- legs, knees, ankles, toes (lateral knee movement, foot tapping, heel dropping, foot squirming, inversion and eversion of foot: 4 - Severe Neck, shoulders, hips (rocking, twisting, squirming, pelvic gyrations: 4 - Severe Severity of abnormal movements overall: 3 - Moderate Incapacitation due to abnormal movements: 3 - Moderate Patient's awareness of abnormal movements: Aware, moderate distress Current problems with teeth and/or dentures?: No Are dentures usually worn?: Yes Edentia?: Yes Do movements disappear in sleep?: Yes AIMS Score: 28
[2024-10-14 15:05] VITALS: BP 140/72; BMI 26.6
--- OUTSIDE RECORDS SUMMARY | 2024-10-14 15:17 | XMS_ITS | Clinical Summary ---
Author Organization [facility] Address [address] [place] [phone] Phone Care Team Providers Care Mortgage Counselor Name Role Phone Sanjay Carl NP Primary Care Provider Allergies Active Allergy Reactions Criticality Noted Date Comments Cefaclor Hives,Other 03/25/2013 Penicillins Hives,Other 03/25/2013 Succinylcholine Other,Shortness of breath High 03/25/2013 Per patient, respiratory depression/SOB after extubation after receiving this med for sedation during a surgery when she was 20 Sulfa (Sulfonamide Antibiotics) Hives 03/25/2013 Medications albuterol HFA (PROAIR HFA ; PROVENTIL HFA ; VENTOLIN HFA) 90 mcg/actuation inhaler Inhale 2 puffs by mouth every 4 (four) hours. Active aspirin 81 mg EC tablet Take 1 tablet (81 mg total) by mouth 1 (one) time each day. 08/20/2024 Active atorvastatin (LIPITOR) 40 mg tablet Take 1 tablet (40 mg total) by mouth 1 (one) time each day. Active busPIRone (BUSPAR) 30 mg tablet Take 1 tablet (30 mg total) by mouth 2 (two) times a day. Active clonazePAM (KlonoPIN) 0.5 mg tablet Take 1 tablet (0.5 mg total) by mouth 3 (three) times a day. 08/24/2024 Active dilTIAZem (TIAZAC) 240 mg 24 hr capsule Take 1 capsule (240 mg total) by mouth 1 (one) time each day. Active DULoxetine (CYMBALTA) [address] capsule Take 1 capsule (60 mg total) by mouth 2 (two) times a day. Active ferrous sulfate 325 mg (65 mg iron) EC tablet Take 1 tablet (325 mg total) by mouth every other day. Active folic acid (FOLVITE) 1 mg tablet Take 1 tablet (1,000 mcg total) by mouth 1 (one) time each day. 08/22/2024 Active gabapentin (NEURONTIN) 600 mg tablet Take 1 tablet (600 mg total) by mouth 3 (three) times a day. 01/16/2024 Active levothyroxine (SYNTHROID, LEVOTHROID) 150 mcg tablet Take 1 tablet (150 mcg total) by mouth 1 (one) time each day before breakfast. 08/22/2024 Active loratadine (CLARITIN) 10 mg tablet Take 1 tablet (10 mg total) by mouth 1 (one) time each day. 02/11/2024 Active methenamine hippurate (HIPREX) 1 gram tablet Take 1 tablet (1 g total) by mouth 2 (two) times a day. 08/22/2024 Active Myrbetriq 25 mg 24 hr tablet Take 1 tablet (25 mg total) by mouth 1 (one) time each day. Active naltrexone (DEPADE) 50 mg tablet Take 1 tablet (50 mg total) by mouth 1 (one) time each day in the morning. Active pantoprazole (PROTONIX) 40 mg EC tablet Take 1 tablet (40 mg total) by mouth 1 (one) time each day. 08/22/2024 Active traZODone (DESYREL) 50 mg tablet Take 1 tablet (50 mg total) by mouth at bedtime as needed for sleep. 08/13/2024 Active Incruse Ellipta 62.5 mcg/actuation inhalation Inhale 1 puff by mouth 1 (one) time each day. Active sodium chloride 1,000 mg soluble tablet Take 1 tablet (1 g total) by mouth 1 (one) time each day. Active baclofen (LIORESAL) 20 mg tablet Take by mouth 3 (three) times a day. Active rOPINIRole (REQUIP) 2 mg tablet Take 1 tablet (2 mg total) by mouth at bedtime. Active Active Problems Problem Noted Date Diagnosed Date Gastrointestinal hemorrhage 09/01/2024 Encounters Date Type Department Care Team Description 09/02/2024 8:56 AM EDT Anesthesia Event [facility] Endoscopy [address] [place] [phone] Mahin Raines DO Hard, Shannon, CRNA 09/01/2024 4:58 PM EDT - 09/04/2024 2:00 PM EDT Hospital Encounter [facility] Intermediate Care Unit [address] [place] [phone] Sarabjit Quiroz MD Jones, MD Anastasia Ma Priya, MD Zipagan, James T, MD Upper GI bleeding (Primary Dx); Alcoholic intoxication without complication ([facility] V24) Discharge Disposition: Home or Self Care 07/17/2024 7:34 AM EDT - 07/17/2024 12:00 PM EDT Emergency [facility] Emergency [address] [place] [phone] Edson Blackwell MD Hip pain, unspecified laterality (Primary Dx) Discharge Disposition: Home or Self Care from Last 3 Months Surgical History Surgery Date Site/Laterality Comments BLADDER SURGERY PROCEDURE: HISTORICAL BLADDER SURGERY; COMMENT: incontinence OTHER SURGICAL HISTORY 2010 PROCEDURE: [place] UNLISTED PROCEDURE LEG/ANKLE; COMMENT: compartmental fasciitis OTHER SURGICAL HISTORY 10/30/10 PROCEDURE: COLONOSCOPY, SURGICAL; COMMENT: [facility] Dr Ortiz ELBOW SURGERY 07/27/13 PROCEDURE: HISTORICAL ELBOW SURGERY; COMMENT: left ulnar nerve COLONOSCOPY 09/01/15 PROCEDURE: HISTORICAL COLONOSCOPY; COMMENT: Dr Coburn, [place] FOOT SURGERY 12/08/15 Right PROCEDURE: HISTORICAL FOOT SURGERY; COMMENT: first metatarsophalangeal joint replacement with hemiphalangectomy FOOT SURGERY 08/30/2016 Left PROCEDURE: HISTORICAL FOOT SURGERY; COMMENT: left 1st metatarsophlangeal joint replacement ESOPHAGOGASTRODUODENOSCOPY 11/15/2016 PROCEDURE: [place] ESOPHAGOGASTRODUODENOSCOPY TRANSORAL DIAGNOSTIC; COMMENT: Dr Coburn dilated but met no resistance, normal EGD, Dx is functional dysphagia ESOPHAGOGASTRODUODENOSCOPY 10/23/2018 PROCEDURE: [place] ESOPHAGOGASTRODUODENOSCOPY TRANSORAL DIAGNOSTIC; COMMENT: normal by Dr Alpesh Murphy OTHER SURGICAL HISTORY 02/14/2019 Left PROCEDURE: [place] OPTX FEM SHFT FX W/INSJ IMED IMPLT W/WO SCREW; COMMENT: Dr Berrios at [facility], spontaneous Fx. Medical History Medical History Date Comments Schizoaffective disorder ([facility] V24, [facility] V28) DX:Schizoaffective disorder ([facility]); COMMENT: cared at [facility] HTN (hypertension) DX:HTN (hyper tension) Osteoporosis DX:Osteoporosis; COMMENT: on once a year injection Hyperlipidemia 03/23/2015 DX:Hyperlipidemi a Skin cancer, basal cell 02/22/2016 DX:Skin cancer, basal cell; COMMENT: Face and trunk in past. 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 Dr Adam Briceno MD Depression Anxiety COPD (chronic obstructive pu lmonary disease) ([facility] V24, [facility] V28) Overactive bladder Basal cell carcinoma Family History Medical History Relation Name Comments Basal cell carcinoma Father Other: Cancer, 2018 Father josi dder ca Breast cancer Father's side aunt Other: CAD 2018 Mother Other: Heart valve Mother Basal cell carcinoma Sister Diabetes Son Relation Name Status Comments Father Father's side Mother Sister Son Social History Tobacco Use Types Packs/Day Years Used Date Smoking Tobacco: Every Day Cigarettes Smokeless Tobacco: Current Alcohol Use Standard Drinks/Week Comments Yes 0 (1 standard drink = 0.6 oz pur e alcohol) Housing Instability Answer Date Recorde d Are you worried that in the next 2 months you may not have stable housing? Patient declined 09/02/2024 Food Access & Nutrition Answer Date Rec orded Do you have access to a vari ety of food including fruits and vegetables? Patient declined 09/02/2024 Health Literacy Answer Date Recorded How often do you need to hav e someone help you when you read instructions, pamphlets, or other written material from your doctor or pharmacy? Patient declined 09/02/2024 Caregiver: How often do you need to have someone help you when you read instructions, pamphlets, or other written material from your doctor or pharmacy? Not on file 025 Financial Risk Answer Date Recorded How hard is it for you to pa y for the very basics like food, housing, medical care, and air conditioning / heating? Patient declined 09/02/2024 Transportation Answer Date Recorded Has the lack of transportati on kept you from meetings, work, or from getting things needed for daily living? Patient declined 09/02/2024 Has the lack of transportati on kept you from medical appointments or from getting medications? Patient declined 09/02/2024 Social Isolation Answer Date Recorded How often do you feel lonely or isolated from those around you? Patient declined 09/02/2024 Food Risk Answer Date Recorded Within the past 12 months we worried whether our food would run out before we got money to buy more. Patient declined 025 Within the past 12 months th e food we bought just didn't last and we didn't have money to get more. Patient declined 08/14 Dependent Care Answer Date Recorded Do you need help finding or paying for care for your loved ones. For example, director of child welfare services or elderly care for an older adult? Patient declined 09/02/2024 Education Answer Date Recorded Do you think completing more education or training, like finishing a GED, going to college, or learning a trade, would be helpful for you? Patient declined 09/02/2024 Employment and Income Answer Date Recor ded During the last four weeks, have you been actively looking for work? Patient declined 09/02/2024 Living Situation Answer Date Recorded What is your living situation? 0 09/02/2024 Interpersonal Safety Answer Date Record ed Physical Abuse 09/02/2024 Verbal Abuse 09/02/2024 Comments No Sex and Gender Information Value Date Recorded Sex Assigned at Female 07/17/2024 8:57 AM EDT Legal Sex Female 4:20 AM EST Gender Identity Female 07/17/2024 8:57 AM EDT Sexual Orientation Straight 07/17/2024 8: 57 AM EDT Obstetrics History Last Filed Vital Signs Vital Sign Reading Time Taken Comments Blood Pressure 126/73 09/04/2024 11:02 AM EDT Pulse 72 09/04/2024 11:02 AM EDT Temperature 36.7 C (98.1 F) 09/04/2024 11:02 AM EDT Respiratory Rate 16 09/04/2024 11:02 AM EDT Oxygen Saturation 97% 09/04/2024 11:02 AM EDT Inhaled Oxygen Concentration - - Weight 72.6 kg (160 lb) 09/02/2024 8:21 AM EDT Height 167.6 cm (5' 6 ) 09/02/2024 8:21 AM EDT Body Mass Index 25.82 09/02/2024 8:21 AM EDT Plan of Treatment Health Maintenance Due Date Last Done Comments Breast Cancer Screening 1955 DTaP,Tdap,and Td Vaccines (1 - Tdap) 01/03/1976 Hepatitis A Vaccines (1 of 2 - Risk 2-dose series) 01/03/1976 Hepatitis B Vaccines (1 of 3 - Risk 3-dose series) 2017 RSV Immunization Adult Patients (1 - Risk 60-74 years 1-dose series) 2017 Zoster Vaccines (2 of 2) 06/11/2018 04/16/2018 Pneumococcal Vaccine: 50+ Years (3 of 3 - PCV) 04/16/2019 04/16/2018, 05/02/2009 Cholesterol Screening (Lipid Panel) 03/18/2022 Colorectal Cancer Screening: Colonoscopy 03/18/2022 Depression Screening 03/18/2022 Hepatitis C Screening 03/18/2022 Lung Cancer Screening (Low Dose CT) 03/18/2022 Medicare Annual Wellness Visit 03/18/2022 Osteoporosis Screening (Bone Density Screening) 03/18/2022 COVID-19 Vaccine ( season) 2023 03/27/2023, 03/01/2022, 11/03/2021, Additional history exists Influenza Vaccine (#1) 2024 , 03/11/2023, 02/09/2022, Additional history exists Social Influencers of Health Screening 09/02/2025 09/02/2024 Falls Risk Assessment 09/04/2025 09/04/2024 Hypertension/CHF/CAD Annual BMP Blood Test 09/04/2025 09/04/2024, 09/03/2024, 09/02/2024, Additional history exists HIB Vaccines Aged Out No longer eligi ble based on patient's age to complete this topic HPV Vaccines Aged Out No longer eligi ble based on patient's age to complete this topic IPV Vaccines Aged Out No longer eligi ble based on patient's age to complete this topic MMR Vaccines Aged Out No longer eligi ble based on patient's age to complete this topic Meningococcal ACWY Vaccine Aged Out N o longer eligible based on patient's age to complete this topic Meningococcal B Vaccine Aged Out No l onger eligible based on patient's age to complete this topic RSV Immunization Patients Under 20 months Aged Out No longer eligible based on patient's age to complete this topic Varicella Vaccines Aged Out No longer eligible based on patient's age to complete this topic Procedures Procedure Name Priority Date/Time Associated Diagnosis Comments ECG ANNOTATED 09/05/2024 MAGNESIUM Routine 09/04/2024 6:33 AM EDT HEMOGLOBIN AND HEMATOCRIT Routine 09/04/2024 6:33 AM EDT BASIC METABOLIC PANEL Routine 09/04/2024 6:33 AM EDT THYROID STIMULATING HORMONE WITH REFLEX TO FREE T4 AND FREE T3 Add-On 09/03/2024 5:44 AM EDT OSMOLALITY Add-On 09/03/2024 5:44 AM EDT CBC WITH AUTO DIFFERENTIAL Routine 09/03/2024 5:44 AM EDT PHOSPHORUS Routine 09/03/2024 5:44 AM EDT MAGNESIUM Routine 09/03/2024 5:44 AM EDT COMPREHENSIVE METABOLIC PANEL Routine 09/03/2024 5:44 AM EDT CBC AND DIFFERENTIAL Routine 09/03/2024 5:44 AM EDT EGD Routine 09/02/2024 9:07 AM EDT Upper GI bleeding MAGNESIUM Routine 09/02/2024 5:41 AM EDT TROPONIN I HIGH SENSITIVITY Timed 09/02/2024 5:41 AM EDT CBC WITH AUTO DIFFERENTIAL Routine 09/02/2024 5:41 AM EDT HEPATIC FUNCTION PANEL Routine 5:41 AM EDT CBC AND DIFFERENTIAL Routine 09/02/2024 5:41 AM EDT BASIC METABOLIC PANEL Routine 09/02/2024 5:41 AM EDT YELLOW URINE NO ADDITIVE Routine 09/02/2024 1:30 AM EDT EXTRA TUBES Routine 09/02/2024 1:30 AM EDT METHADONE SCREEN, URINE Routine 09/03/19 1:30 AM EDT PHENCYCLIDINE, URINE Routine 09/02/2024 1:30 AM EDT METHADONE CONFIRMATION, URINE Routine 09/02/2024 1:30 AM EDT BUPRENORPHINE SCREEN, URINE Routine 09/02/2024 1:30 AM EDT DRUG ABUSE SCREEN 8A PANEL, URINE Routine 09/02/2024 1:30 AM EDT ECG 12-LEAD Routine 09/02/2024 1:29 AM EDT ECG 12-LEAD Routine 09/02/2024 1:05 AM EDT TROPONIN I HIGH SENSITIVITY Routine 09/02/2024 1:00 AM EDT HEMOGLOBIN AND HEMATOCRIT Timed 09/01/2024 11:53 PM EDT US ABDOMEN LIMITED Routine 09/01/2024 10 :31 PM EDT CBC WITH AUTO DIFFERENTIAL STAT 09/01/2024 7:31 PM EDT ACTIVATED PARTIAL THROMBOPLASTIN TIME STAT 09/01/2024 7:31 PM EDT CBC AND DIFFERENTIAL STAT 09/01/2024 7:31 PM EDT HEPATIC FUNCTION PANEL Add-On 7:12 PM EDT MAGNESIUM STAT 09/01/2024 7:12 PM EDT ETHANOL STAT 09/01/2024 7:12 PM EDT BASIC METABOLIC PANEL STAT 09/01/2024 7:12 PM EDT XR CHEST 2 VIEWS STAT 09/01/2024 7:03 PM EDT AMMONIA STAT 09/01/2024 6:32 PM EDT TYPE AND SCREEN STAT 09/01/2024 6:32 PM EDT PROTHROMBIN TIME WITH INR STAT 09/01/2024 6:32 PM EDT TROPONIN I HIGH SENSITIVITY STAT 09/01/2024 6:32 PM EDT ECG 12-LEAD STAT 09/01/2024 6:10 PM EDT from Last 3 Months Results * ECG-Annotated (09/05/2024) us Provider Onbase MD ECG ORDERABLES Final Result * (ABNORMAL) Hemoglobin and hematocrit (09/04/2024 6:33 AM EDT) Only the most recent of2 resultswithin the time period is included. Hemoglobin 11.6 11.5 - 16.0 g/dL LAB HEMETOLOGY METHOD 09/04/2024 7:57 AM EDT [facility] Hematocrit 32.9(L) 35.0 - 47.0 % LAB HEMETOLOGY METHOD 09/04/2024 7:57 AM EDT [facility] Blood Venous blood specimen / Unknown Venipuncture / Unknown 09/04/2024 6:33 AM EDT 09/04/2024 7:20 AM EDT us Ihsan Spencer MD LAB BLOOD ORDERABLES Final Re sult Performing Organization Address [facility]/ZIP Or de Phone Number [facility] [address] [place] [address], [place] [phone] * (ABNORMAL) Magnesium (09/04/2024 6:33 AM EDT) Only the most recent of4 resultswithin the time period is included. Magnesium 1.6(L) 1.9 - 2.6 mg/dL LAB CHEMISTRY METHOD 09/04/2024 8:23 AM EDT [facility] Blood Venous blood specimen / Unknown Venipuncture / Unknown 09/04/2024 6:33 AM EDT 09/04/2024 7:20 AM EDT us Ihsan Spencer MD LAB BLOOD ORDERABLES Final Re sult Performing Organization Address [facility] de Phone Number [facility] [address] [place] [address], [place] [phone] * (ABNORMAL) Basic metabolic panel (09/04/2024 6:33 AM EDT) Only the most recent of3 resultswithin the time period is included. Sodium 122(L) 133 - 145 mmol/L LAB CHEMISTRY METHOD 09/04/2024 8:25 AM EDT [facility] Potassium 3.5 3.5 - 5.5 mmol/L LAB CHEMISTRY METHOD 09/04/2024 8:25 AM EDT [facility] Chloride 86(L) 96 - 110 mmol/L LAB CHEMISTRY METHOD 09/04/2024 8:25 AM [facility] CO2 24 21 - 32 mmol/L LAB CHEMISTRY METHOD 09/04/2024 8:25 AM [facility] Anion Gap 12(H) 3 - 11 LAB CHEMISTRY METHOD 09/04/2024 8:25 AM [facility] Glucose 99 70 - 100 mg/dL LAB CHEMISTRY METHOD 09/04/2024 8:25 AM [facility] BUN 7 5 - 25 mg/dL LAB CHEMISTRY METHOD 09/04/2024 8:25 AM [facility] Creatinine 0.58 0.50 - 1.10 mg/dL LAB CHEMISTRY METHOD 09/04/2024 8:25 AM [facility] eGFR 99 >=60 mL/min/1. 73m2 LAB CHEMISTRY METHOD 09/04/2024 8:25 AM [facility] Comment:Calculation based on the Chronic Kidney Disease Epidemiology Collaboration (CKD-EPI) equation refit without adjustment for race. BUN/Creatinine Ratio 12.1 LAB CHEMISTRY METHOD 09/04/2024 8:25 AM [facility] Calcium 8.8 8.5 - 10.5 mg/dL LAB CHEMISTRY METHOD 09/04/2024 8:25 AM [facility] Blood Venous blood specimen / Unknown Venipuncture / Unknown 09/04/2024 6:33 AM EDT 09/04/2024 7:20 AM EDT us Ihsan Spencer MD LAB BLOOD ORDERABLES Final Re sult [facility] [address] [place] [address], * Thyroid stimulating hormone with reflex to free t4 and free t3 (09/03/2024 5:44 AM EDT) TSH 0.82 0.40 - 4.00 mcIU/mL LAB CHEMISTRY METHOD 09/03/2024 11:23 AM EDT [facility] Blood Venous blood specimen / Unknown Venipuncture / Unknown 09/03/2024 5:44 AM EDT 09/03/2024 6:17 AM EDT us Ihsan Spencer MD LAB BLOOD ORDERABLES Final Re sult [facility] [address] [place] [address], [place] [phone] * (ABNORMAL) CBC auto differential (09/03/2024 5:44 AM EDT) Only the most recent of3 resultswithin the time period is included. WBC 7.1 4.8 - 10.8 K/mcL LAB HEMETOLOGY METHOD 09/03/2024 6:48 AM EDT [facility] RBC 4.20 3.80 - 4.80 M/[facility] LAB HEMETOLOGY METHOD 09/03/2024 6:48 AM EDT [facility] Hemoglobin 12.3 11.5 - 16.0 g/dL LAB HEMETOLOGY METHOD 09/03/2024 6:48 AM [facility] Hematocrit 35.3 35.0 - 47.0 % LAB HEMETOLOGY METHOD 09/03/2024 6:48 AM EDT [facility] MCV 84.7 79.0 - 98.0 FL LAB HEMETOLOGY METHOD 09/03/2024 6:[facility] MCH 29.5 27.0 - 32.0 pcg LAB HEMETOLOGY METHOD 09/03/2024 6:48 AM [facility] MCHC 34.8 32.0 - 37.0 g/dL LAB HEMETOLOGY METHOD 09/03/2024 6:48 [facility] RDW 13.6 11.0 - 15.0 % LAB HEMETOLOGY METHOD 09/03/2024 6:48 AM [facility] Platelets 119(L) 130 - 400 K/mcL LAB HEMETOLOGY METHOD 09/03/2024 6:48 AM [facility] MPV 9.7 7.0 - 11.0 FL LAB HEMETOLOGY METHOD 09/03/2024 6:48 AM [facility] NRBC 0.0 <1.0 % LAB HEMETOLOGY METHOD 09/03/2024 6:48 AM [facility] NRBC Absolute 0.00 <0.10 K/mcL LAB HEMETOLOGY METHOD 09/03/2024 6:48 AM [facility] Neutrophils Relative 52.4 % LAB HEMETOLOGY METHOD 09/03/2024 6:48 AM [facility] Lymphocytes Relative 31.8 % LAB HEMETOLOGY METHOD 09/03/2024 6:48 AM [facility] Monocytes Relative 11.8 % LAB HEMETOLOGY METHOD 09/03/2024 6:48 AM [facility] Eosinophils Relative 2.4 % LAB HEMETOLOGY METHOD 09/03/2024 6:48 AM [facility] Basophils Relative 0.9 % LAB HEMETOLOGY METHOD 09/03/2024 6:48 AM [facility] Immature Granulocytes Relative 0.7 % LAB HEMETOLOGY METHOD 09/03/2024 6:48 AM [facility] Neutrophils Absolute 3.70 1.50 - 7.00 K/mcL LAB HEMETOLOGY METHOD 09/03/2024 6:48 AM [facility] Lymphocytes Absolute 2.24 1.00 - 5.00 K/mcL LAB HEMETOLOGY METHOD 09/03/2024 6:48 AM [facility] Monocytes Absolute 0.83 0.20 - 1.00 K/mcL LAB HEMETOLOGY METHOD 09/03/2024 6:48 AM EDT [facility] Eosinophils Absolute 0.17 0.00 - 0.50 [facility] HEMETOLOGY METHOD 09/03/2024 6:48 AM EDT [facility] Basophils Absolute 0.06 0.00 - 0.20 [facility] LAB HEMETOLOGY METHOD 09/03/2024 6:48 AM EDT [facility] Immature Granulocytes Absolute 0.05(H) 0.00 - 0.03 [facility] HEMETOLOGY METHOD 09/03/2024 6:48 AM EDT [facility] Blood Venous blood specimen / Unknown Venipuncture / Unknown 09/03/2024 5:44 AM EDT 09/03/2024 6:17 AM EDT us Bhavana Oconnor MD LAB BLOOD ORDERABLES Final Resul t Performing Organization Address City/[facility]/ZIP Co de Phone Number [facility] [address] [place] [address], [place] [phone] * Phosphorus (09/03/2024 5:44 AM EDT) [facility] Phosphorus 2.8 2.5 - 4.5 mg/dL LAB CHEMISTRY METHOD 09/03/2024 7:13 AM EDT [facility] Blood Venous blood specimen / Unknown Venipuncture / Unknown 09/03/2024 5:44 AM EDT 09/03/2024 6:17 AM EDT us Bhavana Oconnor MD LAB BLOOD ORDERABLES Final Resul t Performing Organization Address City/[facility]/ZIP Co de Phone Number [facility] [address] [place] [address], [place] [phone] * (ABNORMAL) Osmolality (09/03/2024 5:44 AM EDT) Osmolality David 254(L) 280 - 300 mOsm/kg LAB CHEMISTRY METHOD 09/03/2024 8:54 AM [facility] Blood Venous blood specimen / Unknown Venipuncture / Unknown 09/03/2024 5:44 AM EDT 09/03/2024 6:17 AM EDT us Ihsan Spencer MD LAB BLOOD ORDERABLES Final Re sult [facility] [address] [place] [address], [place] [phone] * (ABNORMAL) Comprehensive metabolic panel (09/03/2024 5:44 AM EDT) Sodium 122(L) 133 - 145 mmol/L LAB CHEMISTRY METHOD 09/03/2024 7:13 AM [facility] Potassium 3.2(L) 3.5 - 5.5 mmol/L LAB CHEMISTRY METHOD 09/03/2024 7:13 AM [facility] Chloride 85(L) 96 - 110 mmol/L LAB CHEMISTRY METHOD 09/03/2024 7:13 AM [facility] CO2 26 21 - 32 mmol/L LAB CHEMISTRY METHOD 09/03/2024 7:13 AM [facility] Anion Gap 11 3 - 11 LAB CHEMISTRY METHOD 09/03/2024 7:13 AM [facility] Glucose 113(H) 70 - 100 mg/dL LAB CHEMISTRY METHOD 09/03/2024 7:13 AM [facility] BUN 3(L) 5 - 25 mg/dL LAB CHEMISTRY METHOD 09/03/2024 7:13 AM [facility] Creatinine 0.58 0.50 - 1.10 mg/dL LAB CHEMISTRY METHOD 09/03/2024 7:13 AM [facility] eGFR 99 >=60 mL/min/1. 73m2 LAB CHEMISTRY METHOD 09/03/2024 7:13 AM [facility] Comment:Calculation based on the Chronic Kidney Disease Epidemiology Collaboration (CKD-EPI) equation refit without adjustment for race. BUN/Creatinine Ratio 5.2 LAB CHEMISTRY METHOD 09/03/2024 7:13 AM [facility] Calcium 8.8 8.5 - 10.5 mg/dL LAB CHEMISTRY METHOD 09/03/2024 7:13 AM [facility] AST (SGOT) 54(H) 10 - 42 unit/L LAB CHEMISTRY METHOD 09/03/2024 7:13 AM [facility] ALT (SGPT) 56 10 - 60 unit/L LAB CHEMISTRY METHOD 09/03/2024 7:13 AM [facility] Alkaline Phosphatase 111 42 - 121 unit/L LAB CHEMISTRY METHOD 09/03/2024 7:13 AM [facility] Total Protein 7.1 6.0 - 8.0 g/dL LAB CHEMISTRY METHOD 09/03/2024 7:13 AM [facility] Albumin 3.8 3.2 - 5.0 g/dL LAB CHEMISTRY METHOD 09/03/2024 7:13 AM [facility] Total Bilirubin 1.3 0.0 - 1.4 mg/dL LAB CHEMISTRY METHOD 09/03/2024 7:13 AM [facility] Blood Venous blood specimen / Unknown Venipuncture / Unknown 09/03/2024 5:44 AM EDT 09/03/2024 6:17 AM EDT us Bhavana Oconnor MD LAB BLOOD ORDERABLES Final Resul t [facility] [address] [place] [address], * EGD Anesthesia - MAC; [facility] ENDOSCOPY (09/02/2024 9:07 AM EDT) Anatomical Region Laterality Modality Endoscopy 09/02/2024 8:48 AM EDT Impressions 09/02/2024 9:07 AM EDT - Z-line regular, 38 cm from the incisors. - Normal esophagus. - Normal stomach. - Normal examined duodenum. - No specimens collected. Recommendation: - [facility]. - NPO. - Continue present medications. - Observe patient's clinical course. Narrative 09/02/2024 9:07 AM EDT [facility] GI Patient Name: Rhona Gandara Procedure Date: 09/02/2024 8:48 AM Date of : 1955 Age: 69 Room: ROOM 15 Gender: Female Note Status: Finalized Attending MD: Kashmir Juares MD, Procedure Date No Time: 09/02/2024 Procedure: Upper GI endoscopy Indications: Epigastric abdominal pain, Melena Providers: Kashmir Juares MD Referring MD: Mukesh Carreon MD Medicines: Monitored Anesthesia Care Complications: No immediate complications. Estimated Blood Loss: Estimated blood loss: none. Procedure: Pre-Anesthesia Assessment: - ASA Grade Assessment: III - A patient with severe systemic disease. - After reviewing the risks and benefits, the patient was deemed in satisfactory condition to undergo the procedure. After obtaining informed consent, the endoscope was passed under direct vision. Throughout the procedure, the patient's blood pressure, pulse, and oxygen saturations were monitored continuously.The Endoscope was introduced through the mouth, and advanced to the third part of duodenum. The upper GI endoscopy was accomplished without difficulty. The patient tolerated the procedure well. Findings: The Z-line was regular and was found 38 cm from the incisors. The esophagus was normal. The stomach was normal. The examined duodenum was normal. Procedure Code(s): --- Professional --- 94490, Esophagogastroduodenoscopy, flexible, transoral; diagnostic, including collection of specimen(s) by brushing or washing, when performed (separate procedure) Diagnosis Code(s): --- Professional --- K92.1, Melena (includes Hematochezia) R10.13, Epigastric pain CPT copyright 2020 [employer]. All rights reserved. The codes documented in this report are preliminary and upon burglar alarm installer review may be revised to meet current compliance requirements. Kashmir Juares MD 09/02/2024 9:07:39 AM This report has been signed electronically.Kashmir Juares MD Number of Addenda: 0 Note Initiated On: 09/02/2024 8:48 AM Scope In: Scope Out: Endoscopy Department at [facility] - [address] [place] [id number] Procedure Note Kashmir Juares MD - 09/02/2024 [facility] GI Patient Name: Rhona Gandara Procedure Date: 09/02/2024 8:48 AM Date of : 1955 Age: 69 Room: ROOM 15 Gender: Female Note Status: Finalized Attending MD: Kashmir Juares MD, Procedure Date No Time: 09/02/2024 Procedure: Upper GI endoscopy Indications: Epigastric abdominal pain, Melena Providers: Kashmir Juares MD Referring MD: Mukesh Carreon MD Medicines: Monitored Anesthesia Care Complications: No immediate complications. Estimated Blood Loss: Estimated blood loss: none. Procedure: Pre-Anesthesia Assessment: - ASA Grade Assessment: III - A patient with severe systemic disease. - After reviewing the risks and benefits, thepatient was deemed in satisfactory condition to undergo the procedure. After obtaining informed consent, the endoscope was passed under direct vision. Throughout theprocedure, the patient's blood pressure, pulse, and oxygen saturations were monitored continuously.TheEndoscope was introduced through the mouth, and advanced tothe third part of duodenum. The upper GI endoscopy was accomplished without difficulty. The patienttolerated the procedure well. Findings: The Z-line was regular and was found 38 cm from the incisors. The esophagus was normal. The stomach was normal. The examined duodenum was normal. Procedure Code(s): --- Professional --- 12499, Esophagogastroduodenoscopy, flexible, transoral; diagnostic, including collection of specimen(s) by brushing or washing, when performed (separate procedure) Diagnosis Code(s): --- Professional --- K92.1, Melena (includes Hematochezia) R10.13, Epigastric pain CPT copyright 2020 [employer]. All rights reserved. The codes documented in this report are preliminary and upon burglar alarm installer reviewmay be revised to meet current compliance requirements. Kashmir Juares MD 09/02/2024 9:07:39 AM This report has been signed electronically.Kashmir Juares MD Number of Addenda: 0 Note Initiated On: 09/02/2024 8:48 AM Scope In: Scope Out: Endoscopy Department at [facility] - [address] [place] [phone] IMPRESSION: - Z-line regular, 38 cm from the incisors. - Normal esophagus. - Normal stomach. - Normal examined duodenum. - No specimens collected. Recommendation: - [facility] - NPO. - Continue present medications. - Observe patient's clinical course. us Kashmir Juares MD GI~PROCEDURE ORDERABLES Final Result * Troponin I high sensitivity (09/02/2024 5:41 AM EDT) Only the most recent of3 resultswithin the time period is included. High Sensitivity Troponin I 19 <=54 ng/L LAB CHEMISTRY METHOD 09/02/2024 7:22 AM EDT [facility] Blood Venous blood specimen / Unknown Venipuncture / Unknown 09/02/2024 5:41 AM EDT 09/02/2024 6:47 AM EDT Narrative [facility] - 09/02/2024 7:22 AM EDT High levels of biotin in samples may falsely decrease hsTroponin values. Use caution when interpreting hsTroponin results in patients taking biotin who exhibit renal impairment (eGFR <60) or in patients taking more than 20 mg/day of biotin. Kimberley ROSE LAB BLOOD ORDERABLES Final R esult [facility] [address] [place] [address], [place] [phone] * (ABNORMAL) Hepatic function panel (09/02/2024 5:41 AM EDT) Only the most recent of2 resultswithin the time period is included. Total Protein 7.1 6.0 - 8.0 g/dL LAB CHEMISTRY METHOD 09/02/2024 7:28 AM EDT [facility] Albumin 4.0 3.2 - 5.0 g/dL LAB CHEMISTRY METHOD 09/02/2024 7:28 AM EDT [facility] Total Bilirubin 1.1 0.0 - 1.4 mg/dL LAB CHEMISTRY METHOD 09/02/2024 7:28 AM [facility] Bilirubin, Direct 0.4(H) 0.0 - 0.3 mg/dL LAB CHEMISTRY METHOD 09/02/2024 7:28 AM [facility] Bilirubin, Indirect 0.7 0.0 - 1.1 mg/dL LAB CHEMISTRY METHOD 09/02/2024 7:28 AM [facility] ALT (SGPT) 65(H) 10 - 60 unit/L LAB CHEMISTRY METHOD 09/02/2024 7:28 AM [facility] AST (SGOT) 72(H) 10 - 42 unit/L LAB CHEMISTRY METHOD 09/02/2024 7:28 AM [facility] Alkaline Phosphatase 109 42 - 121 unit/L LAB CHEMISTRY METHOD 09/02/2024 7:28 AM T [facility] Blood Venous blood specimen / Unknown Venipuncture / Unknown 09/02/2024 5:41 AM EDT 09/02/2024 6:46 AM EDT us Kimberley ROSE LAB BLOOD ORDERABLES Final R esult [facility] [address] [place] [address], [place] [phone] * Drug abuse screen 8a panel, urine (09/02/2024 1:30 AM EDT) [facility] Amphetamine Screen, Ur Negative Negative LAB CHEMISTRY METHOD 09/02/2024 2:20 AM [facility] Comment:Certain OTC medicati ons containing ephedrine, phenylephrine, pseudoephedrine and phenylpropanolamine can cause false positive results. Barbiturate Screen, Ur Negative Negative LAB CHEMISTRY METHOD 09/02/2024 2:20 AM [facility] Benzodiazepine Screen, Ur Negative Negative LAB CHEMISTRY METHOD 09/02/2024 2:20 AM [facility] Cocaine Screen, Ur Negative Negative LAB CHEMISTRY METHOD 09/02/2024 2:20 AM [facility] Opiate Screen, Ur Negative Negative LAB CHEMISTRY METHOD 09/02/2024 2:20 AM [facility] Cannabinoid (THC) Screen, Ur Negative Negative LAB CHEMISTRY METHOD 09/02/2024 2:20 AM [facility] Comment:Specimens from patie nts taking pantoprazole sodium (Protonix) have been shown to produce false positive results. Oxycodone Screen, Ur Negative Negative LAB CHEMISTRY METHOD 09/02/2024 2:20 AM [facility] Fentanyl, Ur Negative Negative LAB CHEMISTRY METHOD 09/02/2024 2:20 AM [facility] Urine Urine specimen obtained by clean catch procedure / Unknown Non-blood Collection / Unknown 09/02/2024 1:30 AM EDT 09/02/2024 1:51 AM [facility] - 09/02/2024 2:20 AM EDT Assay cutoffs: Amphetamines 1000 ng/mL Barbiturates 200 ng/mL Benzodiazepines 200 ng/mL Cocaine 300 ng/mL Fentanyl 1 ng/mL Opiates 300 ng/mL Oxycodone 100 ng/mL THC 50 ng/mL Semi-quantitative assay for screening purposes only. Unconfirmed screening result should not be used for non-medical purposes. *ALTERNATE METHOD CONFIRMATION DONE UPON REQUEST ONLY* us Kimberley ROSE LAB URINE ORDERABLES Final R esult [facility] [address] [place] [address], [place] [phone] * (ABNORMAL) Methadone confirmation, urine (09/02/2024 1:30 AM EDT) [facility] Methadone Confirm Urine Negative ng/mL 09/04/2024 6:15 PM EDT [facility] EDDP Confirm, Urine Negative ng/mL 09/04 6:15 PM EDT [facility] Creatinine 14(L) 20 - 250 mg/dL 09/04/2024 6:15 PM EDT [facility] Adulterants Negative 09/04/2024 6:15 PM EDT [facility] Comment: Confirmation (GC/MS) Decision Limits Methadone 100 ng/mL EDDP (Methadone Metabolite) 100 ng/mL DECISION LEVEL SPECIFIC GRAVITY 1.010 < 1.003 Interpretation of creatinine and specific gravity data suggest the sample is not dilute and negative results are valid. Typical creatinine and specific gravity values are 20 - 250 mg/dL and 1.003 - 1.020, respectively. Adulterant Decision Limit: General Oxidants 200 ug/mL The adulterant assay tests for General Oxidants, including Chromates and Nitrites. Adulterants are substances either ingested or added directly to a urine specimen to prevent the detection of drug use. If applicable, any drug confirmation testing reported here was developed and the performance characteristics determined by [facility]. This confirmation testing has not been cleared or approved by the FDA. The laboratory is regulated under CLIA as qualified to perform high-complexity testing. This test is used for patient testing purposes. It should not be regarded as investigational or for research. Test performed at [facility], [address], [place] [address] Lorin Yin MD, PhD - Farm Loan Representative Urine Urine specimen from urethra / Unknown Non-blood Collection / Unknown 09/02/2024 1:30 AM EDT 09/02/2024 1:52 AM EDT Kimberley ROSE LAB URINE ORDERABLES Final R [place] [address] [place] [address] * Buprenorphine screen, urine (09/02/2024 1:30 AM EDT) Buprenorphine Screen Urine Negative Negative LAB CHEMISTRY METHOD 09/02/2024 2:20 AM EDT [facility] Urine Urine specimen obtained by clean catch procedure / Unknown Non-blood Collection / Unknown 09/02/2024 1:30 AM EDT 09/02/2024 1:51 AM EDT Narrative [facility] - 09/02/2024 2:20 AM EDT Assay cutoff 5 ng/mL Semi-quantitative assay for screening purposes only. Unconfirmed screening result should not be used for non-medical purposes. *ALTERNATE METHOD CONFIRMATION DONE UPON REQUEST ONLY* Kimberley ROSE LAB URINE ORDERABLES Final R esult Performing Organization Address City/[facility] Co de Phone Number [facility] [address] [place] [address], * Methadone, urine (09/02/2024 1:30 AM EDT) Methadone Screen, Urine Negative Negative LAB CHEMISTRY METHOD 09/02/2024 2:20 AM EDT [facility] Comment: Assay cutoff 300 ng/mL Semi-quantitative assay for screening purposes only. Unconfirmed screening result should not be used for non-medical purposes. *ALTERNATE METHOD CONFIRMATION DONE UPON REQUEST ONLY* Urine Urine specimen obtained by clean catch procedure / Unknown Non-blood Collection / Unknown 09/02/2024 1:30 AM EDT 09/02/2024 1:51 AM EDT Kimberley ROSE LAB URINE ORDERABLES Final R esult Performing Organization Address [facility]/ZIP Co de Phone Number [facility] [address] [place] [address], [place] [phone] * Yellow urine no additive (09/02/2024 1:30 AM EDT) [facility] Extra Tube Hold for add-ons. 09/02/2024 3:01 AM EDT [facility] Comment:Auto resulted. Urine Urine specimen obtained by clean catch procedure / Unknown 09/02/2024 1:30 AM EDT 09/02/2024 1:52 AM EDT Anil Rosales MD LAB URINE ORDERABLES Final Result Performing Organization Address [facility] de Phone Number [facility] [address] [place] [address], [place] [phone] * Phencyclidine, urine (09/02/2024 1:30 AM EDT) [facility] PCP Scrn, Ur Negative Negative LAB CHEMISTRY METHOD 09/02/2024 2:20 AM EDT [facility] Comment: Assay cutoff 25 ng/mL Semi-quantitative assay for screening purposes only. Unconfirmed screening result should not be used for non-medical purposes. *ALTERNATE METHOD CONFIRMATION DONE UPON REQUEST ONLY* Urine Urine specimen obtained by clean catch procedure / Unknown Non-blood Collection / Unknown 09/02/2024 1:30 AM EDT 09/02/2024 1:51 AM EDT Kimberley ROSE LAB URINE ORDERABLES Final R esult Performing Organization Address [facility] Co de Phone Number [facility] [address] [place] [address], [place] [phone] * ECG 12 lead (09/02/2024 1:29 AM EDT) Only the most recent of3 resultswithin the time period is included. Ventricular Rate ECG 87 BPM GEMUSE Atrial Rate 87 BPM GEMUSE P-R Interval 172 ms GEMUSE QRS Duration 62 ms GEMUSE Q-T Interval 378 ms GEMUSE QTc 454 ms GEMUSE P Wave [place] 68 degrees GEMUSE R [place] -3 degrees GEMUSE T [place] 21 degrees GEMUSE ECG Interpretation Normal sinus rhythm Possible Left atrial enlargement Septal infarct (cited on or before 30-JUN-2024) Abnormal ECG When compared with ECG of 02-SEP-2024 01:05, No significant change was found Confirmed by ROXANA RODRIGUEZ ([id number]) on 09/02/2024 5:50:24 PM GEMUSE 09/02/2024 1:29 AM EDT 09/02/2024 5:50 PM EDT us Bhavana Oconnor MD ECG ORDERABLES Final Result GEMUSE * US Abdomen Limited (09/01/2024 10:31 PM EDT) Anatomical Region Laterality Modality Body Ultrasound 09/01/2024 11:0 8 PM EDT Impressions 09/01/2024 11:08 PM EDT Dilated main pancreatic duct and CBD. No stone seen in the visualized duct. Distal obstruction can not be excluded. Hepatic steatosis without evidence of cirrhosis. This document has been electronically signed by: Tammy Schneider MD on 09/01/2024 23:08:54 Narrative 09/01/2024 11:08 PM EDT INDICATION: Jaundice US abdomen limited Comparison: None Findings: Mildly dilated main pancreatic duct measuring 4 mm. Visualized IVC is within normal limits. Hepatic steatosis. Smooth contour. There is no intrahepatic bile duct dilatation. The common duct is 10 mm in diameter. The gallbladder is normal. There is no sonographic Steinberg sign. The main portal vein is antegrade. The right kidney is 11.5 cm in length. No ascites. Procedure Note Tammy Schneider MD - 09/01/2024 INDICATION: Jaundice US abdomen limited Comparison: None Findings: Mildly dilated main pancreatic duct measuring 4 mm. Visualized IVC is within normal limits. Hepatic steatosis. Smooth contour. There is no intrahepatic bile duct dilatation. The common duct is 10 mm in diameter. The gallbladder is normal. There is no sonographic Steinberg sign. The main portal vein is antegrade. The right kidney is 11.5 cm in length. No ascites. IMPRESSION: Dilated main pancreatic duct and CBD. No stone seen in the visualized duct. Distal obstruction can not be excluded. Hepatic steatosis without evidence of cirrhosis. This document has been electronically signed by: Tammy Schneider MD on 09/01/2024 23:08:54 Anil Rosales MD IMG US PROCEDURES Final Res ult * APTT (09/01/2024 7:31 PM EDT) aPTT 30.8 24.1 - 39.3 sec LAB COAGULATION METHOD 09/01/2024 7:53 PM EDT [facility] Blood Venous blood specimen / Unknown Venipuncture / Unknown 09/01/2024 7:31 PM EDT 09/01/2024 7:42 PM EDT Sarabjit Quiroz MD LAB BLOOD ORDERABLES Final Result Performing Organization Address [facility]/ZIP Co de Phone Number [facility] [address] [place] [address], [place] [phone] * (ABNORMAL) Ethanol (09/01/2024 7:12 PM EDT) Ethanol Level 237(H) 0 - 10 mg/dL LAB CHEMISTRY METHOD 09/01/2024 8:10 PM EDT [facility] Blood Venous blood specimen / Unknown Venipuncture / Unknown 09/01/2024 7:12 PM EDT 09/01/2024 7:34 PM EDT Sarabjit Quiroz MD LAB BLOOD ORDERABLES Final Result Performing Organization Address [facility]/ZIP Co de Phone Number [facility] [address] [place] [address], [place] [phone] * XR Chest 2 Views (09/01/2024 7:03 PM EDT) Anatomical Region Laterality Modality Body Radiographic Judith ging 09/01/2024 10:4 8 PM EDT Impressions 09/01/2024 10:49 PM EDT FINDINGS/IMPRESSION: Normal heart size without congestive heart failure. No consolidation or effusion. No acute osseous abnormality. Calcific tendinitis left shoulder. -------- FINAL REPORT -------- Dictated By: Clint Houston Dictated Date: 09/01/2024 22:48 ET Assigned Physician: Clint Houston Reviewed and Electronically Signed By: Clint Houston Signed Date: 09/01/2024 22:49 ET Workstation ID: [id number] Transcribed By: Self Edit Transcribed Date: 09/01/2024 22:48 ET Narrative 09/01/2024 10:49 PM EDT XR CHEST 2 VIEWS INDICATION: chest pain TECHNIQUE: XR CHEST 2 VIEWS COMPARISON: No priors available. Procedure Note Clint Houston MD - 09/01/2024 XR CHEST 2 VIEWS INDICATION: chest pain TECHNIQUE: XR CHEST 2 VIEWS COMPARISON: No priors available. IMPRESSION: FINDINGS/IMPRESSION: Normal heart size without congestive heart failure.No consolidation or effusion. No acute osseous abnormality. Calcifictendinitis left shoulder. -------- FINAL REPORT -------- Dictated By: Clint Houston Dictated Date: 09/01/2024 22:48 ET Assigned Physician: Clint Houston Reviewed and Electronically Signed By: Clint Houston Signed Date: 09/01/2024 22:49 ET Workstation ID: [id number] Transcribed By: Self Edit Transcribed Date: 09/01/2024 22:48 ET us Anil Rosales MD IMG XR PROCEDURES Final Res ult * Protime-INR (09/01/2024 6:32 PM EDT) Protime 10.9 10.6 - 13.9 sec LAB COAGULATION METHOD 09/01/2024 7:00 PM EDT [facility] INR 0.9 LAB COAGULATION METHOD 09/01/2024 7:00 PM EDT [facility] Blood Venous blood specimen / Unknown Venipuncture / Unknown 09/01/2024 6:32 PM EDT 09/01/2024 6:41 PM EDT Sarabjit Quiroz MD LAB BLOOD ORDERABLES Final Result Performing Organization Address [facility] de Phone Number [facility] [address] [place] [address], [place] [phone] * Type and Screen (09/01/2024 6:32 PM EDT) ABO Group A 09/01/2024 8:37 PM EDT [facility] Rh Type Positive 09/01/2024 8:37 PM EDT [facility] Antibody Screen Negative 09/01/2024 8:37 PM EDT [facility] Blood Venous blood specimen / Unknown Venipuncture / Unknown 09/01/2024 6:32 PM EDT 09/01/2024 6:41 PM EDT Sarabjit Quiroz MD LAB BLOOD BANK TEST ORDERAB LES Final Result Performing Organization Address [facility] Co de Phone Number [facility] [address] [place] [address], [place] [phone] * Ammonia (09/01/2024 6:32 PM EDT) Ammonia 29 11 - 35 mcmol/L LAB CHEMISTRY METHOD 09/01/2024 7:16 PM EDT [facility] Blood Venous blood specimen / Unknown Venipuncture / Unknown 09/01/2024 6:32 PM EDT 09/01/2024 6:41 PM EDT us Sarabjit Quiroz MD LAB BLOOD ORDERABLES Final Result [facility] [address] [place] [address], from Last 3 Months Insurance MEDICAID - [place] [employer] MEDICARE Member Subscriber Plan / Payer (Ef fective 2024-Present) Name:Rhona Gandara Relation to Subscriber:Self Name:Rhona Gandara Payer ID:[id number] Group ID:[id number] Type:Not on file Address: [address] [place] [id number] Advance Directives * Full Code - Default (Latest Code Status on File) Date Activated Date Inactivated Comments 09/01/2024 8:54 PM 09/04/2024 4:14 PM This is orde r is used when code status has not been discussed with the patient, or code status is otherwise unknown/unconfirmed To update the patient's code status, place a code status order. Do not modify or discontinue any currently active code status orders. * Full Code - Default Date Activated Date Inactivated Comments 09/01/2024 8:53 PM 09/01/2024 8:54 PM This is orde r is used when code status has not been discussed with the patient, or code status is otherwise unknown/unconfirmed To update the patient's code status, place a code status order. Do not modify or discontinue any currently active code status orders. Care Teams Mortgage Counselor Relationship Specialty Start Date End Date Sanjay Carl NP [address] [place] [address] PCP - General Family Medicine 06/30/24
--- OUTSIDE RECORDS SUMMARY | 2024-10-14 15:17 | XMS_ITS | Encounter Summary ---
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 Sex Assigned at Date Recorded Not on file documented as of this encounter Plan of Treatment Not on file documented as of this encounter Visit Diagnoses Not on filedocumented in this encounter Care Teams Answerer Relationship Specialty Start Date End Date Luis Oseguera MD PCP - General Internal Medicine 03/20/13 11/30/14 Natalie Khanna MD PCP - General Internal Medicine 12/01/14 10/05/15 Nicky Haynes MD PCP - General Internal Medicine 10/06/15 04/19/20 [facility], Pcp PCP - General Internal Medicine 04/20/20 documented as of this encounter
--- OUTSIDE RECORDS SUMMARY | 2024-10-14 15:17 | XMS_ITS | Patient Health Record ---
Author Organization [facility] Address [address] [facility] [address] [place] [address] Care Team Providers Care Director Of Billing Name Role Phone HaynesNicky Primary Care Provider Unavailab le Allergies Allergen (clinical drug ingredient) Drug/Non Drug Allergy documented on EMR Reaction Allergy Type Onset Date Status cefaclor Cefaclor Unknown Drug Allergy Active Substance with penicillin structure and antibacterial mechanism of action (substance) Penicillins Unknown Drug Allergy Active Substance with sulfonamide structure and antibacterial mechanism of action (substance) Sulfa Antibiotics Unknown Drug Allergy Active Reason For Referral No Information Medications Medication SIG (Take, Route, Frequency, Duration) Notes [...] tablet Oral ly Once a day Active Meclizine HCl 25 MG 1 tablet as needed Orally Active Nystatin 517154 UNIT/GM 1 application Externally Twice a day [...] tablet Orally 3 times daily prn Active Ammonium Lactate 12 % 1 application Externally Twice a day for 30 days Active Amitriptyline HCl 100 MG 1 tablet at bed time Orally Once a day Active oxyBUTYnin Not-Takin g Problems Problem Type SNOMED Code ICD Code Onset Dates Problem Status W/U Status Risk Notes Problem [id number] Congenital metatarsus adductus, 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 Problem 89377922 Congenital metatarsus adductus, 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) Active confirmed Problem 19303794 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
--- OUTSIDE RECORDS SUMMARY | 2024-10-14 15:17 | XMS_ITS | Clinical Summary ---
Author Organization [facility] Address [address] [facility] [address] [place] [address] Phone Care Team Providers Care Check Writing Machine Operator Name Role Phone Antoinette Zimmer MD Primary Care Provider Allergies Active Allergy Reactions Criticality Noted Date Comments Cefaclor Other (see comments) 03/25/2013 Penicillin V Other (see comments) 05/25/2020 Succinylcholine 03/25/2013 Sulfa Antibiotics Other (see comments) 03/25/20 13 Medications albuterol HFA (PROVENTIL HFA;VENTOLIN HFA) 108 (90 Base) MCG/ACT inhaler Inhale 2 puffs every 4 (four) hours Active amitriptyline (ELAVIL) 100 MG tablet Take 1 tablet by mouth 1 (one) time each day Active ammonium lactate (AMLACTIN) 12 % cream Active cholecalciferol (VITAMIN D-3) 25 MCG (1000 UT) capsule Take 1 capsule by mouth 1 (one) time each day Active clonazePAM (KlonoPIN) 2 MG tablet Take 1 tablet by mouth 2 (two) times a day Active desvenlafaxine (PRISTIQ) 100 MG 24 hr tablet Take 100 mg by mouth 1 (one) time each day Active dilTIAZem (TIAZAC) 240 MG 24 hr capsule Take 1 capsule by mouth 1 (one) time each day Active doxycycline (VIBRA-TABS) 100 MG tablet Take 1 tablet by mouth 2 (two) times a day 01/26/2019 Active ferrous sulfate 325 (65 Fe) MG tablet Take 1 tablet by mouth 1 (one) time each day Active folic acid (FOLVITE) 1 MG tablet Take 1 tablet by mouth 1 (one) time each day Active gabapentin (NEURONTIN) 600 MG tablet Take 4 tablets by mouth 1 (one) time each day Active levothyroxine (SYNTHROID, LEVOTHROID) 150 MCG tablet Take 1 tablet by mouth 1 (one) time each day Active loratadine (CLARITIN) 10 MG tablet Take 1 tablet by mouth 1 (one) time each day Active meclizine (ANTIVERT) 25 MG tablet Take 0.5 tablets by mouth 3 (three) times a day Active meloxicam (MOBIC) 15 MG tablet Take 1 tablet by mouth 1 (one) time each day Active nicotine (NICODERM CQ) 21 MG/24HR Active nitrofurantoin (MACRODANTIN) 50 MG capsule Take 1 capsule by mouth 1 (one) time each day Active oxybutynin XL (DITROPAN-XL) 5 MG 24 hr tablet Take 1 tablet by mouth 1 (one) time each day Active pantoprazole (PROTONIX) 40 MG EC tablet Take 1 tablet by mouth 1 (one) time each day Active polyethylene glycol (GLYCOLAX) 17 GM/SCOOP powder 17 g by Other route 1 (one) time each day Active rOPINIRole (REQUIP) 2 MG tablet Take 1 tablet by mouth at bed time Active terbinafine (LamISIL) 250 MG tablet Take 1 tablet by mouth 1 (one) time each day Active baclofen (LIORESAL) 10 MG tablet Take 2 tablets by mouth 4 (four) times a day Active atorvastatin (LIPITOR) 40 MG tablet Take 1 tablet by mouth 1 (one) time each day Active naltrexone (DEPADE) 50 MG tablet Take 50 mg by mouth 1 (one) time each day Active busPIRone (BUSPAR) 15 MG tablet Take 15 mg by mouth 2 (two) times a day Active DULoxetine (CYMBALTA) [address] capsule Take 60 mg by mouth in the morning and 60 mg in the evening. Do not crush or chew. . Active sodium chloride 1 g tablet TAKE 1 TABLET(1 GRAM) BY MOUTH EVERY DAY 30 tablet 2 12/31/2022 Active sodium chloride 1 g tablet TAKE 1 TABLET(1 GRAM) BY MOUTH EVERY DAY 30 tablet 2 12/31/2022 Active Ozempic, 0.25 or 0.5 MG/DOSE, 2 MG/3ML solution pen-injector Inject 0.5 mg under the skin every 7 (seven) days 01/14/2023 Active Active Problems Problem Noted Date Diagnosed Date History of cocaine abuse 04/03/2022 Alcohol abuse 04/03/2022 Candidiasis of mouth 04/03/2022 Chronic diarrhea 04/03/2022 Current drinker 04/03/2022 Degeneration of lumbar intervertebral disc 04/03 Depressive disorder 04/03/2022 Emphysema 04/03/2022 Posttraumatic stress disorder 04/03/2022 History of malignant basal cell neoplasm of skin 04/03/2022 Hypersomnia 04/03/2022 Lumbar spondylosis 04/03/2022 Obese class I 04/03/2022 Onychogryposis 04/03/2022 Peripheral neuropathy 04/03/2022 Seizure disorder 04/03/2022 Substance abuse 04/03/2022 Tinea pedis 04/03/2022 Tobacco use and exposure - finding 04/03/2022 Urinary incontinence 04/03/2022 Hypertension 11/25/2020 Hyponatremia 11/24/2020 Benign essential hypertension 05/25/2020 Hypo-osmolality and or hyponatremia 05/25/2020 Resolved Problems Problem Noted Date Diagnosed Date Resolved Date Osteoporosis 11/24/2020 11/24/2020 Overview (11/24/2020): on once a year injection Bone Density 11/12/18. Recommend 2 year repeat Schizoaffective disorder 11/24/202003/2021 Overview (11/24/2020): cared at [facility]/ normal ct brain Tobacco dependence syndrome 11/24/2020 11/24/2020 Vitamin D deficiency 11/24/2020 021 Pyometra 04/13/2019 11/24/2020 Endometrium thickened 04/13/20192020 Overview (11/24/2020): Last Assessment & Plan: Procedure Note Indication for Procedure Encounter Diagnoses Name Primary? Thickened endometrium Yes Pyometrium Postmenopausal bleeding The patient was consented for an endometrial biopsy. She was placed in the lithotomy position and a bimanual exam was performed revealing aan anteverted normal sized uterus. A sterile speculum was placed. The cervix was cleansed with betadine. A single-toothed tenaculum was placed on the anterior lip of the cervix. The uterus sounded to 8 cm in length. Two passes with a 3 mm pipelle were performed with a scant amount of tissue returning. No purulence. This tissue was sent to pathology for further evaluation. The tenaculum was removed and the sites appeared hemostatic. The speculum was also removed. The patient tolerated the procedure well. We discussed postprocedure cramping and light bleeding. Advised to avoid anything in the vagina for three days. Advised to call with increasing pain, heavy bleeding, or fever. Pt will be informed of results when available. GUY MERRITT MD Postmenopausal bleeding 01/21/201911/13 Overview (11/24/2020): Last Assessment & Plan: Resolved since biopsy x 2 with weakly proliferative endometrium. Discussed possible treatment with progestin, but could observe. Given her cramping, however, will obtain repeat US to ensure no further fluid collection in uterus. No evidence of endometritis on exam. She agreed and will schedule US. Will review when results available. Screening examination for venereal disease 01/21/2019 11/24/2020 Overview (11/24/2020): Last Assessment & Plan: Testing performed today including serum and genital samples per pt request. Not tested for Hep C as already known positive. I encouraged safe sex practices for the future to prevent STI. Will contact her with results when available. 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 Gastroesophageal reflux disease 11/08/2015 11/24/2020 Overview (11/24/2020): Pt no showed barium swallow at [facility] 12/02/15 10:30am. Hyperlipidemia 03/23/2015 11/24/2020 Overview (11/24/2020): Normal nuclear stress test 08/14/16 Obstructive sleep apnea 12/03/201411/13 Overview (11/24/2020): RBMG Polysomnogram: Date 10/30/2016; SE 58%; SM 70%; REM 0%; RDI 6 (AHI 6), Central apneas 2; Obstructive apneas 19; Mixed apneas 1; hypopneas 0; RERAs 2; average oxygen saturation 96% (lowest 93% - without saturations <88% for 5% or more of study); PLMs 111. Mammography abnormal 08/14/2013 021 Overview (11/24/2020): 02/18 microcal and sterotipic biopsy,fibrocystic changes Hypothyroidism 05/11/2013 11/24/2020 Overview (11/24/2020): Minimal symptoms Viral hepatitis C 05/08/2013 11/24/2020 Overview (11/24/2020): Per patient viral load undetectable. [facility] gastroenterology 12/27 egd nad-dr escobedo 12/27-colonoscopy small internal hemmrhoids Asthma 04/17/2013 11/24/2020 Chronic back pain 04/17/2013 11/24/2020 Overview (11/24/2020): Dr oswald previous pcp 03/27-Old compression fractures versus prominent Schmorl's nodes at the superior endplates of L1 and L5. At L4-5 and L5-S1, there is a small central distribution superimposed on generalized disc bulging. Facet arthropathy at L4-5. Degenerative disc disease and chronic discogenic disease at L5-S1. There is no focal nerve root compression. Immunizations Immunization Administration Dates Next Due Influenza TIV (IM) 03/12/2016, 5,01/28/2014, 4 Influenza, MDCK, PF, Quadrivalent 12/25/2018 Pfizer SARS-COV-2 02/03/2021,07/20/2020,06/30/19 21 Pneumococcal Polysaccharide 04/16/2018, 0 Shingrix 04/16/2018 Family History Medical History Relation Comments Diabetes Child Cancer Father Dementia Father Frontotemporal dementia Father Heart disease Mother Hypertension Mother Relation Status Comments Child Father Alive Mother Alive Social History Tobacco Use Types Packs/Day Years Used Date Smoking Tobacco: Every Day Smokeless Tobacco: Current Tobacco Cessation:Ready to Q uit: Not Asked; Counseling Given: Not Answered Comments:2 cigs a day Alcohol Use Standard Drinks/Week Comments No 0 (1 standard drink = 0.6 oz pur e alcohol) Comments Unknown Sex and Gender Information Value Date Recorded Sex Assigned at Not on file Legal Sex Female 5:06 PM EST Gender Identity Not on file Sexual Orientation Not on file Last Filed Vital Signs Vital Sign Reading Time Taken Comments Blood Pressure 138/70 01/17/2023 2:37 PM EDT Pulse 74 01/17/2023 2:37 PM EDT Temperature - - Respiratory Rate - - Oxygen Saturation 91% 01/17/2023 2:37 PM EDT Inhaled Oxygen Concentration - - Weight 62.5 kg (137 lb 12.8 oz) 01/17/2023 2:37 PM EDT Height 152.4 cm (5') 01/17/2023 2:37 PM EDT Body Mass Index 26.91 01/17/2023 2:37 PM EDT Plan of Treatment Health Maintenance Due Date Last Done Comments Breast Cancer Screening 1955 Colorectal Cancer Screening: Annual FOBT 2006 Colorectal Cancer Screening: Colonoscopy 2006 Colorectal Cancer Screening: Sigmoidoscopy 2006 Pneumococcal Vaccine: 50+ Years (3 of 3 - PCV) 04/16/2019 04/16/2018, 05/02/2009 Influenza Vaccine (Season Ended) 2024 12/25/2018, 03/12/2016, 01/21/2015, Additional history exists Pneumococcal Vaccine: Peds (0 to 5 Years) and At-Risk Patients (6 to 49 Years) Discontinued 04/16/2018, 05/02/2009 Hepatitis B Vaccine Aged Out No longe r eligible based on patient's age to complete this topic Insurance * Guarantor: Rhona Gandara Account Type Relation to Patient Date of Phone Billing Address Personal/Family Self 1955 [address] ([id number]) [place] [address] * Guarantor: Rhona Gandara Account Type Relation to Patient Date of Phone Billing Address Personal/Family Self 1955 [address] ([id number]) [place] [address] Care Teams Check Writing Machine Operator Relationship Specialty Start Date End Date Antoinette Zimmer MD [address] [place] [address] PCP - General Internal Medicine 11/25/20
--- OUTSIDE RECORDS SUMMARY | 2024-10-14 15:18 | XMS_ITS | Data Portability ---
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 In order to obtain [...] ovarian cyst(s) completed Alivia Sorensen NP [address] [place], [address], [facility] 01/07/2021 15:59:36 open reduction of fracture of femur completed Alivia Sorensen NP [address] [place] [address], [address], [facility] 01/07/2021 15:59:43 closed reduction of fracture of hip completed Alivia Sorensen NP [address] [place], [address], [facility] 01/07/2021 15:59:51 Imaging Results None recorded. Procedure Notes None recorded. Medical Equipment None Reported. Allergies Allergen ID Allergen Name Allergen Category Reaction Reaction Severity Criticality Documentation Date Start Date Code Code System Note Provider Name and Address Organization Details Recorded Time 507503 Product containin g penicilli n (product) medicatio n Not available Not available Not available 01/07/2021 94820 8001 SNOMED Alivia Sorensen NP [address] [place], [address], [place] [facility] 15:53:47 603420 Ceclor medicatio n Not available Not available Not available 01/07/202133244 5 RxNorm Alivia Sorensen NP [address] [facility], [place], [address], [place] [facility] 15:53:53 003908 Substance with sulfonami de structure and antibacte rial mechanism of action (substanc e) medicatio n Not available Not available Not available 01/07/2021 76806 8003 SNOMED Alivia Sorensen, CAKE PRESS OPERATOR HELPER [address] [place] [address], [place], [address], [place] [facility] 15:54:00 Medications Name Sig Start Date Stop Date Status Note LastModified by Organization Details LastModified Time multivitami n women 50 tablets TAKE 1 TABLET BY MOUTH ONCE A DAY FOR IMPROVED HEALTH AND HAPPINESS active Not Available Not Available No t Available multiv women tab 50+ 01/07 completed Not Available Not Available Not Available atorvastati n 40 mg tablet TAKE [...] [degF] 124 mm[Hg] 76 mm[Hg] Not Available [facility] 15:55:18 Social History Question Answer Notes LastModified by Organizat ion Details LastModified Time Tobacco Smoking Status Current Every Day Smoker Alivia Sorensen, LIDIA [address], [place], [address], [place] [facility] 01/07/2021 15:57:59 Do You [...] Visiting Friends Or Family Or Going To Jew Or Club Meetings) 1 Or 2 Times [...] Response Diabetes N Coronary Artery Disease N Cancer N Stroke N COPD Y Depression Y Asthma N High Cholesterol Y Pulmonary Embolism Y Hypertension Y Kidney Disease N Gynecological HistoryNo gynecological history recorded. Obstetrics History GPAL:G 0 P 0 0 0 0 Past Encounters Encounter ID Performer Location Encounter Start Date Encounter Closed Date Diagnosis/Indication Diagnosis SNOMED-CT Code Diagnosis ICD10 Code Diagnosis Note [id number] Alivia Sorensen NP [facility] [address] [place] [address] 01/07/2021 15:51:31 01/12/2021 17:24:04 Suspected COVID-19 617768128 Z03.89 Dyspnea 639559630 R06.00 Oxygen sat uration below reference range 503769048 R79.81 Health Concerns Section Related Observation LastModified by Organization Detai ls LastModified Time None Recorded Concern Status LastModified by Organization Details LastModified Time None Recorded Advance Directives Directive N: Payers Insurance Date Sequence Insurance Name Policy Number Policy Barba Covered Member ID Barba Member ID Guarantor Name 01/12/[address] [facility] [place] [place] - DOS PRIOR TO 2022 - DUAL ELIGIBLE (MEDICARE REPLACEMENT/ADV ANTAGE - HMO) Rhona Gandara [id number] Rhona Gandara 01/06/2021 1 *SELF PAY* Rhona Gandara [id number] Rhona Gandara Notes Date Note Type Note [...] OA Alivia Sorensen NP [address], [place], [address], [place] [facility] 01/07/2021 16:40:23 OBGyn Episode No OBEpisode recorded.
== END 2024-10-14 15:39 | disposition home or self-care (01) ==
LOC: HO.HSMS 14:54
PROVIDERS: Absent Provider Psychiatry & Neurology Neurology; PCP Nurse Practitioner Family; Visit Provider Psychiatry & Neurology Neurology
DX: G24.01 Drug induced subacute dyskinesia (principal); T43.505A Adverse effect of unspecified antipsychotics and neuroleptics, initial encounter; G43.109 Migraine with aura, not intractable, without status migrainosus
CPT/HCPCS: 99204; G2211

== ENCOUNTER 2024-10-14 14:54 | Outpatient (REF) | payer OTHER, SELFPAY ==
[2024-10-14 17:49] LABS: Anion Gap 11 (12-20); Blood Urea Nitrogen 7 mg/dL (9-16); Carbon Dioxide 25 mmol/L (22-29); Chloride 98 mmol/L (96-108); Estimated Glomerular Filt Rate > 60; Potassium 4.4 mmol/L (3.3-5.1); Sodium 130 mmol/L (135-145)
== END 2024-10-14 14:55 | disposition home or self-care (01) ==
LOC: HO.HKASLDS 14:54
PROVIDERS: Absent Provider Psychiatry & Neurology Neurology; PCP Nurse Practitioner Family; Visit Provider Internal Medicine Nephrology
DX: G24.01 Drug induced subacute dyskinesia (principal); T43.505A Adverse effect of unspecified antipsychotics and neuroleptics, initial encounter; G43.109 Migraine with aura, not intractable, without status migrainosus; E87.1 Hypo-osmolality and hyponatremia
CPT/HCPCS: 36415; 80051; 82565; 84520; 99202

== ENCOUNTER 2024-10-20 15:00 | Outpatient (AMB) | payer OTHER, SELFPAY ==
[2024-10-20 15:17] VITALS: BP 130/68; O2SAT 96; BMI 26.6
--- NOTE | 2024-10-20 15:17 | HO.NEPHOV ---
Vital Signs 10/20/24 15:17 Height 5 ft Weight 136 lb BMI 26.6 BP 130/68 Blood Pressure Location Lt brachial Position Sitting Pulse Oximetry (%) 96 Oxygen Delivery Method Room Air Intake Visit Reasons: R/S 09/03/24-Conf Window Sash Installer Required: No Accompanied by: Self / Same As Patient Allergies succinylcholine Adverse Reaction (Severe, Verified 10/20/24 15:19) choline estrace deficiency cefaclor (From Ceclor) Adverse Reaction (Intermediate, Verified 10/20/24 15:19) hives Penicillins Adverse Reaction (Intermediate, Verified 10/20/24 15:19) hives Sulfa (Sulfonamide Antibiotics) Adverse Reaction (Intermediate, Verified 10/20/24 15:19) hives Tetanus Vaccines and Toxoid Adverse Reaction (Verified 10/20/24 15:19) Hemiparesis HPI Comments Details: Rhona was seen in follow-up of her hyponatremia and hypertension. She has H/O Alcohol use disorder. She claims that her NaCl tabs were put on hold during her recent hospitalization. She had taken demeclocycline the past. She has no new weakness or mentation changes. She has no edema, shortness of breath or orthostatic symptoms. She does not have any nausea, vomiting or diarrhea. She is taking sodium chloride tablet..She denies any other new complaints during this office visit [facility] Medical History (Updated 10/14/24 @ 15:37 by Julia Hope MD) Alcohol abuse Drug abuse, IV Migraine with aura Neuroleptic-induced tardive dyskinesia COVID-19 vaccine series completed Back pain GERD (gastroesophageal reflux disease) Vertigo Anemia Hyponatremia Fracture of left femur Smoker Thyroid disease Asthma Schizoaffective disorder Hepatitis COPD (chronic obstructive pulmonary disease) Elevated cholesterol HTN (hypertension) Surgical History H/O skin graft S/P hardware removal Hx of elbow surgery History of pubovaginal sling History of esophagogastroduodenoscopy (EGD) Hx of colonoscopy History of appendectomy History of hip surgery Social History Household Members Other:: DOOR TO DOOR SELLING DISTRIBUTOR Are you a primary clinical manager home care to a significant other at home: No Do you presently have visiting nurse or other home services: Yes (DOOR TO DOOR SELLING DISTRIBUTOR) Patient Tobacco Use Status: Current everyday Tobacco user Tobacco use type: Cigarette Cigarette Packs Per Day: 0.25 Cigarettes Per Day: 2 Years Smoked: 44 On Nicotene patch and lozengers to quit smoking started 2 weeks ago Second Hand Smoke Exposure: Yes Advance Directives Date on File: 05/27/20 Review of Systems Const All systems reviewed & are unremarkable except as noted in HPI and below Physical Exam Vital Signs: Last Vital Signs BP 130/68 10/20/24 15:17 Pulse Ox 96 10/20/24 15:17 Oxygen Delivery Method Room Air 10/20/24 15:17 BMI result Body Mass Index 26.6 Const General: comfortable and no acute distress Orientation/consciousness: patient oriented x3 HEENT Head: Yes normocephalic Mouth: Normal oral and palatal mucosa present Eyes EOM: EOMs intact bilaterally Neck Neck: Yes supple Resp Auscultation: clear to auscultation bilaterally Cardio Jugular venous distension: no JVD Rate: regular rate GI Palpation (GI): Soft to palpation Auscultation: normal bowel sounds General: Yes no CVA tenderness Back/Spine/Pelvis Back: no CVA tenderness Skin General skin exam: no rashes or lesions noted Neuro General: patient oriented x3 and moves all extremities Extrem General: Yes no pedal edema Results Reviewed Nephrology Results: Sodium, (135-145) 130 mmol/L L 10/14/24 Potassium, (3.3-5.1) 4.4 mmol/L 10/14/24 Chloride, (96-108) 98 mmol/L 10/14/24 Carbon Dioxide, (22-29) 25 mmol/L 10/14/24 BUN, (9-16) 7 mg/dL L 10/14/24 Creatinine, (0.5-1.4) 0.83 mg/dL 10/14/24 Assessment & Plan Assessment & Plan (1) HTN (hypertension): Code(s): I10 - Essential (primary) hypertension Category: Medical Qualifiers: Hypertension type: primary hypertension Qualified Code(s): I10 - Essential (primary) hypertension (2) Hyponatremia: Code(s): E87.1 - Hypo-osmolality and hyponatremia Category: Medical Plan Rhona has some hyponatremia due to excess ADH. Her volume status is quite optimal. She has no orthostatic symptoms or any symptoms which can potentially lead to volume depletion. She had taken demeclocycline the past which she had discontinued. I reduced her oral sodium chloride tablet once a day. Her blood pressure has been on goal on current medication regimen. All her questions were answered. Follow-up blood work ordered. Orders: Orders Blood Urea Nitrogen 2 Months E87.1 - Hypo-osmolality and hyponatremia, I10 - Essential (primary) hypertension Electrolytes 2 Months E87.1 - Hypo-osmolality and hyponatremia, I10 - Essential (primary) hypertension Creatinine 2 Months E87.1 - Hypo-osmolality and hyponatremia, I10 - Essential (primary) hypertension Medications: Changed From sodium chloride 1,000 mg PO TID 90 tabs 3RF To sodium chloride 1,000 mg PO DAILY 90 tabs 3RF 90 days Coding Level of Care Code Est Pt Level 4 (30323) Diagnoses Primary hypertension I10 Hypertension type: primary hypertension Hyponatremia E87.1
--- OUTSIDE RECORDS SUMMARY | 2024-10-20 15:44 | XMS_ITS | Data Portability ---
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 In order to [...] ovarian cyst(s) completed Alivia Sorensen NP [address] [place], [address], [facility] 01/07/2021 15:59:36 open reduction of fracture of femur completed Alivia Sorensen NP [address] [place] [address], [address], [facility] 01/07/2021 15:59:43 closed reduction of fracture of hip completed Alivia Sorensen NP [address] [place], [address], [facility] 01/07/2021 15:59:51 Imaging Results None recorded. Procedure Notes None recorded. Medical Equipment None Reported. Allergies Allergen ID Allergen Name Allergen Category Reaction Reaction Severity Criticality Documentation Date Start Date Code Code System Note Provider Name and Address Organization Details Recorded Time 391929 Product containin g penicilli n (product) medicatio n Not available Not available Not available 01/07/2021 27019 8001 SNOMED Alivia Sorensen NP [address] [place], [address], [place] [facility] 15:53:47 [id number] Ceclor medicatio n Not available Not available Not available 01/07/202182259 5 RxNorm Alivia Sorensen NP [address] [facility], [place], [address], [place] [facility] 15:53:53 [id number] Substance with sulfonami de structure and antibacte rial mechanism of action (substanc e) medicatio n Not available Not available Not available 01/07/2021 45807 8003 SNOMED Alivia Sorensen, [employer] [address] [place] [address], [place], [address], [place] [facility] 15:54:00 Medications [...] Pulse oximetry Respiratory rate Body temperature Systolic And Diastolic Provider Name and Address Organization Details Last Updated DateTime 78 /min 91 % 91 % 20 /min 98.9 [degF] 124/76 mm[Hg] Not Available [facility] 15:55:18 Social History Question Answer Notes LastModified by Organizat ion Details LastModified Time Tobacco Smoking Status Current Every Day Smoker Alivia Sorensen, [facility] [address], [place], [address], [place] [facility] 01/07/2021 15:57:59 Do You [...] Visiting Friends Or Family Or Going To [employer] Or Club Meetings) 1 Or 2 Times [...] available 2020 15:57:07 Medical History Condition Response Coronary Artery Disease N COPD Y Depression Y Diabetes N Cancer N Stroke N Asthma N High Cholesterol Y Pulmonary Embolism Y Hypertension Y Kidney Disease N Gynecological HistoryNo gynecological history recorded. Obstetrics History GPAL:G 0 P 0 0 0 0 Past Encounters Encounter ID Performer Location Encounter Start Date Encounter Closed Date Diagnosis/Indication Diagnosis SNOMED-CT Code Diagnosis ICD10 Code Diagnosis Note [id number] Alivia Sorensen NP [facility] [address] [place] [address] 01/07/2021 15:51:31 01/12/2021 17:24:04 Suspected COVID-19 589988029 Z03.89 Dyspnea 963572071 R06.00 Oxygen sat uration below reference range 146391405 R79.81 Health Concerns Section Related Observation LastModified by Organization Detai ls LastModified Time None Recorded Concern Status LastModified by Organization Details LastModified Time None Recorded Advance Directives Directive N: Payers Insurance Date Sequence Insurance Name Policy Number Policy Barba Covered Member ID Barba Member ID Guarantor Name 01/12/2021 1 [facility] - DOS PRIOR TO 2022 - DUAL ELIGIBLE (MEDICARE REPLACEMENT/ADV ANTAGE - HMO) Rhona Gandara [id number] Rhona Gandara 01/06/2021 1 *SELF PAY* Rhona Gandara [id number] Rhona Gandara Notes Date Note Type Note [...] OA Alivia Sorensen NP [address], [place], [address], [place] [facility] 01/07/2021 16:40:23 OBGyn Episode No OBEpisode recorded.
--- OUTSIDE RECORDS SUMMARY | 2024-10-20 15:44 | XMS_ITS | Clinical Summary ---
Author Organization [facility] Address [address] [place] [id number] Phone Care Team Providers Care Tennis Ball Cover Cementer Name Role Phone Sanjay Carl NP Primary Care Provider [phone] Allergies Active Allergy Reactions Criticality Noted Date [...] Description 09/02/2024 8:56 AM EDT Anesthesia Event [facility] Endoscopy [address] [place] [address] Mahin Raines DO Hard, Shannon, CRNA 09/01/2024 4:58 PM EDT - 09/04/2024 2:00 PM EDT Hospital Encounter [facility] Intermediate Care Unit [address] [place] [address] Sarabjit Quiroz MD Jones, MD Anastasia Ma Priya, MD Zipagan, Ihsan Desir MD Upper GI bleeding (Primary Dx); Alcoholic intoxication without complication ([facility] V24) Discharge Disposition: Home or Self Care from Last 3 Months Surgical History Surgery Date Site/Laterality Comments BLADDER SURGERY PROCEDURE: HISTORICAL BLADDER SURGERY; COMMENT: incontinence OTHER SURGICAL HISTORY 2010 PROCEDURE: DE UNLISTED PROCEDURE LEG/ANKLE; COMMENT: compartmental fasciitis OTHER SURGICAL HISTORY 10/30/10 PROCEDURE: COLONOSCOPY, SURGICAL; COMMENT: [facility] Dr Ortiz ELBOW SURGERY 07/27/13 PROCEDURE: HISTORICAL ELBOW SURGERY; COMMENT: left ulnar nerve COLONOSCOPY 09/01/15 PROCEDURE: HISTORICAL COLONOSCOPY; COMMENT: Dr oCburn, neg biopsies FOOT SURGERY 12/08/15 Right PROCEDURE: HISTORICAL FOOT SURGERY; COMMENT: first metatarsophalangeal joint replacement with hemiphalangectomy FOOT SURGERY 08/30/2016 Left PROCEDURE: HISTORICAL FOOT SURGERY; COMMENT: left 1st metatarsophlangeal joint replacement ESOPHAGOGASTRODUODENOSCOPY 11/15/2016 PROCEDURE: DE ESOPHAGOGASTRODUODENOSCOPY TRANSORAL DIAGNOSTIC; COMMENT: Dr Coburn dilated but met no resistance, normal EGD, Dx is functional dysphagia ESOPHAGOGASTRODUODENOSCOPY 10/23/2018 PROCEDURE: DE ESOPHAGOGASTRODUODENOSCOPY TRANSORAL DIAGNOSTIC; COMMENT: normal by Dr Alpesh Murphy OTHER SURGICAL HISTORY 02/14/2019 Left PROCEDURE: DE OPTX FEM SHFT FX W/INSJ IMED IMPLT W/WO SCREW; COMMENT: Dr Berrios [place] [facility] spontaneous Fx. Medical History Medical History Date Comments Schizoaffective disorder (CM S/HCC V24, [facility] V28) DX:Schizoaffective disorder (HCC); COMMENT: cared at [facility] HTN (hypertension) DX:HTN (hyper tension) Osteoporosis DX:Osteoporosis; [...] SIADH (syndrome of inappropr iate ADH production) ([facility] V24) 09/26/2018 DX:SIADH (syndrome of inappr opriate ADH production) ([facility]); COMMENT: [employer] Repairer is Dr Adam Briceno MD Depression Anxiety COPD (chronic obstructive pu lmonary disease) ([facility] V24, [facility] V28) Overactive bladder Basal cell carcinoma Family [...] care for your loved ones. For example, child care lead teacher or elderly care for an older adult? [...] LAB HEMETOLOGY METHOD 09/04/2024 7:57 AM EDT [facility] Hematocrit 32.9(L) 35.0 - 47.0 % LAB HEMETOLOGY METHOD 09/04/2024 7:57 AM EDT [facility] Blood Venous blood specimen / Unknown Venipuncture / Unknown 09/04/2024 6:33 AM EDT 09/04/2024 7:20 AM EDT us Ihsan Spencer MD LAB BLOOD ORDERABLES Final Re sult Performing Organization Address City/[facility]/ZIP Co de Phone Number [facility] [address] [place] [address], [place] [phone] * (ABNORMAL) Magnesium (09/04/2024 6:33 AM EDT) Only the most recent of4 resultswithin the time period is included. [facility] Magnesium 1.6(L) 1.9 - 2.6 mg/dL LAB CHEMISTRY METHOD 09/04/2024 8:23 AM EDT [facility] Blood Venous blood specimen / Unknown Venipuncture / Unknown 09/04/2024 6:33 AM EDT 09/04/2024 7:20 AM EDT us Ihsan Spencer MD LAB BLOOD ORDERABLES Final Re sult Performing Organization Address [facility] de Phone Number [facility] [address] [place] [address], [place] [phone] * (ABNORMAL) Basic metabolic panel (09/04/2024 6:33 AM EDT) Only the most recent of3 resultswithin the time period is included. [facility] Sodium 122(L) 133 - 145 mmol/L LAB CHEMISTRY METHOD 09/04/2024 8:25 AM EDT [facility] Potassium 3.5 3.5 - 5.5 mmol/L LAB CHEMISTRY METHOD 09/04/2024 8:25 AM EDT [facility] Chloride 86(L) 96 - 110 mmol/L LAB CHEMISTRY METHOD 09/04/2024 8:25 AM EDT [facility] CO2 24 21 - 32 mmol/L LAB CHEMISTRY METHOD 09/04/2024 8:25 AM EDT [facility] Anion Gap 12(H) 3 - 11 LAB CHEMISTRY METHOD 09/04/2024 8:25 AM EDT [facility] Glucose 99 70 - 100 mg/dL LAB CHEMISTRY METHOD 09/04/2024 8:25 AM EDT [facility] BUN 7 5 - 25 mg/dL LAB CHEMISTRY METHOD 09/04/2024 8:25 AM EDT [facility] Creatinine 0.58 0.50 - 1.10 mg/dL LAB CHEMISTRY METHOD 09/04/2024 8:25 AM EDT [facility] eGFR 99 >=60 mL/min/1. 73m2 LAB CHEMISTRY METHOD 09/04/2024 8:25 AM EDT [facility] Comment:Calculation based on the Chronic Kidney Disease Epidemiology Collaboration (CKD-EPI) equation refit without adjustment for race. BUN/Creatinine Ratio 12.1 LAB CHEMISTRY METHOD 09/04/2024 8:25 AM EDT [facility] Calcium 8.8 8.5 - 10.5 mg/dL LAB CHEMISTRY METHOD 09/04/2024 8:25 AM EDT [facility] Blood Venous blood specimen / Unknown Venipuncture / Unknown 09/04/2024 6:33 AM EDT 09/04/2024 7:20 AM EDT us Ihsan Spencer MD LAB BLOOD ORDERABLES Final Re sult [facility] [address] [place] [address], * Thyroid stimulating hormone with reflex to free t4 and free t3 (09/03/2024 5:44 AM EDT) TSH 0.82 0.40 - 4.00 mcIU/mL LAB CHEMISTRY METHOD 09/03/2024 11:23 AM EDT [facility] Blood Venous blood specimen / Unknown Venipuncture / Unknown 09/03/2024 5:44 AM EDT 09/03/2024 6:17 AM EDT us hIsan Spencer MD LAB BLOOD ORDERABLES Final Re sult [facility] [address] [place] [address], * (ABNORMAL) CBC auto differential (09/03/2024 5:44 AM EDT) Only the most recent of3 resultswithin the time period is included. WBC 7.1 4.8 - 10.8 K/mcL LAB HEMETOLOGY METHOD 09/03/2024 6:48 AM EDT [facility] RBC 4.20 3.80 - 4.80 M/mcL LAB HEMETOLOGY METHOD 09/03/2024 6:48 AM EDT [facility] Hemoglobin 12.3 11.5 - 16.0 g/dL LAB HEMETOLOGY METHOD 09/03/2024 6:48 AM EDT [facility] Hematocrit 35.3 35.0 - 47.0 % LAB HEMETOLOGY METHOD 09/03/2024 6:48 AM EDT [facility] MCV 84.7 79.0 - 98.0 FL LAB HEMETOLOGY METHOD 09/03/2024 6:48 AM EDT [facility] MCH 29.5 27.0 - 32.0 pcg LAB HEMETOLOGY METHOD 09/03/2024 6:48 AM EDT [facility] MCHC 34.8 32.0 - 37.0 g/dL LAB HEMETOLOGY METHOD 09/03/2024 6:48 AM EDT [facility] RDW 13.6 11.0 - 15.0 % LAB HEMETOLOGY METHOD 09/03/2024 6:[facility] Platelets 119(L) 130 - 400 K/mcL LAB HEMETOLOGY METHOD 09/03/2024 6:48 AM EDT [facility] MPV 9.7 7.0 - 11.0 FL LAB HEMETOLOGY METHOD 09/03/2024 6:48 AM [facility] NRBC 0.0 <1.0 % LAB HEMETOLOGY METHOD 09/03/2024 6:48 AM [facility] NRBC Absolute 0.00 <0.10 K/mcL LAB HEMETOLOGY METHOD 09/03/2024 6:48 AM [facility] Neutrophils Relative 52.4 % LAB HEMETOLOGY METHOD 09/03/2024 6:48 AM [facility] Lymphocytes Relative 31.8 % LAB HEMETOLOGY METHOD 09/03/2024 6:48 AM [facility] Monocytes Relative 11.8 % LAB HEMETOLOGY METHOD 09/03/2024 6:48 AM [facility] Eosinophils Relative 2.4 % LAB HEMETOLOGY METHOD 09/03/2024 6:48 AM [facility] Basophils Relative 0.9 % LAB HEMETOLOGY METHOD 09/03/2024 6:48 AM [facility] Immature Granulocytes Relative 0.7 % LAB HEMETOLOGY METHOD 09/03/2024 6:48 AM [facility] Neutrophils Absolute 3.70 1.50 - 7.00 K/mcL LAB HEMETOLOGY METHOD 09/03/2024 6:48 AM [facility] Lymphocytes Absolute 2.24 1.00 - 5.00 K/mcL LAB HEMETOLOGY METHOD 09/03/2024 6:48 AM [facility] Monocytes Absolute 0.83 0.20 - 1.00 K/mcL LAB HEMETOLOGY METHOD 09/03/2024 6:48 AM [facility] Eosinophils Absolute 0.17 0.00 - 0.50 K/mcL LAB HEMETOLOGY METHOD 09/03/2024 6:48 AM [facility] Basophils Absolute 0.06 0.00 - 0.20 K/[facility] LAB HEMETOLOGY METHOD 09/03/2024 6:48 AM EDT [facility] Immature Granulocytes Absolute 0.05(H) 0.00 - 0.03 K/[facility] LAB HEMETOLOGY METHOD 09/03/2024 6:48 AM EDT [facility] Blood Venous blood specimen / Unknown Venipuncture / Unknown 09/03/2024 5:44 AM EDT 09/03/2024 6:17 AM EDT us Bhavana Oconnor MD LAB BLOOD ORDERABLES Final Resul t Performing Organization Address City/[facility]/ZIP Co de Phone Number [facility] [address] [place] [address], [place] [phone] * Phosphorus (09/03/2024 5:44 AM EDT) Phosphorus 2.8 2.5 - 4.5 mg/dL LAB CHEMISTRY METHOD 09/03/2024 7:13 AM EDT [facility] Blood Venous blood specimen / Unknown Venipuncture / Unknown 09/03/2024 5:44 AM EDT 09/03/2024 6:17 AM EDT us Bhavana Oconnor MD LAB BLOOD ORDERABLES Final Resul t Performing Organization Address City/[facility]/ZIP Co de Phone Number [facility] [address] [place] [address], [place] [phone] * (ABNORMAL) Osmolality (09/03/2024 5:44 AM EDT) Osmolality David 254(L) 280 - 300 mOsm/kg LAB CHEMISTRY METHOD 09/03/2024 8:54 AM EDT [facility] Blood Venous blood specimen / Unknown Venipuncture / Unknown 09/03/2024 5:44 AM EDT 09/03/2024 6:17 AM EDT us Ihsan Spencer MD LAB BLOOD ORDERABLES Final Re sult [facility] [address] [place] [address], [place] [phone] * (ABNORMAL) Comprehensive metabolic panel (09/03/2024 5:44 AM EDT) Sodium 122(L) 133 - 145 mmol/L LAB CHEMISTRY METHOD 09/03/2024 7:13 AM [facility] Potassium 3.2(L) 3.5 - 5.5 mmol/L LAB CHEMISTRY METHOD 09/03/2024 7:13 AM [facility] Chloride 85(L) 96 - 110 mmol/L LAB CHEMISTRY METHOD 09/03/2024 7:13 AM [facility] CO2 26 21 - 32 mmol/L LAB CHEMISTRY METHOD 09/03/2024 7:13 AM [facility] Anion Gap 11 3 - 11 LAB CHEMISTRY METHOD 09/03/2024 7:13 AM [facility] Glucose 113(H) 70 - 100 mg/dL LAB CHEMISTRY METHOD 09/03/2024 7:13 AM [facility] BUN 3(L) 5 - 25 mg/dL LAB CHEMISTRY METHOD 09/03/2024 7:13 AM [facility] Creatinine 0.58 0.50 - 1.10 mg/dL LAB CHEMISTRY METHOD 09/03/2024 7:13 AM [facility] eGFR 99 >=60 mL/min/1. 73m2 LAB CHEMISTRY METHOD 09/03/2024 7:13 AM [facility] Comment:Calculation based on the Chronic Kidney Disease Epidemiology Collaboration (CKD-EPI) equation refit without adjustment for race. BUN/Creatinine Ratio 5.2 LAB CHEMISTRY METHOD 09/03/2024 7:13 AM [facility] Calcium 8.8 8.5 - 10.5 mg/dL LAB CHEMISTRY METHOD 09/03/2024 7:13 AM EDT [facility] AST (SGOT) 54(H) 10 - 42 unit/L LAB CHEMISTRY METHOD 09/03/2024 7:13 AM EDT [facility] ALT (SGPT) 56 10 - 60 unit/L LAB CHEMISTRY METHOD 09/03/2024 7:13 AM EDT [facility] Alkaline Phosphatase 111 42 - 121 unit/L LAB CHEMISTRY METHOD 09/03/2024 7:13 AM EDT [facility] Total Protein 7.1 6.0 - 8.0 g/dL LAB CHEMISTRY METHOD 09/03/2024 7:13 AM T [facility] Albumin 3.8 3.2 - 5.0 g/dL LAB CHEMISTRY METHOD 09/03/2024 7:13 AM EDT [facility] Total Bilirubin 1.3 0.0 - 1.4 mg/dL LAB CHEMISTRY METHOD 09/03/2024 7:13 AM EDT [facility] Blood Venous blood specimen / Unknown Venipuncture / Unknown 09/03/2024 5:44 AM EDT 09/03/2024 6:17 AM EDT us Bhavana Oconnor MD LAB BLOOD ORDERABLES Final Resul t [facility] [address] [place] [address], * EGD Anesthesia - MAC; [facility] ENDOSCOPY (09/02/2024 9:07 AM EDT) Anatomical Region [...] clinical course. Narrative 09/02/2024 9:07 AM EDT [facility] GI Patient Name: Rhona Gandara Procedure Date: [...] was normal. Procedure Code(s): --- Professional --- 48311, Esophagogastroduodenoscopy, flexible, transoral; diagnostic, including collection of specimen(s) by brushing or washing, when performed (separate procedure) Diagnosis Code(s): --- Professional --- K92.1, Melena (includes Hematochezia) R10.13, Epigastric pain CPT copyright 2020 [employer]. All rights reserved. The codes documented in this report are preliminary and upon computer laboratory technician review may be revised to meet current compliance requirements. Kashmir Juares MD 09/02/2024 9:07:39 AM This report has been signed electronically.Kashmir Juares MD Number of Addenda: 0 Note Initiated On: 09/02/2024 8:48 AM Scope In: Scope Out: Endoscopy Department at [facility] - [address] [place] [phone] Procedure Note Kashmir Juares MD - 09/02/2024 [facility] GI Patient Name: Rhona Gandara Procedure Date: [...] was normal. Procedure Code(s): --- Professional --- 83902, Esophagogastroduodenoscopy, flexible, transoral; diagnostic, including collection of specimen(s) by brushing or washing, when performed (separate procedure) Diagnosis Code(s): --- Professional --- K92.1, Melena (includes Hematochezia) R10.13, Epigastric pain CPT copyright 2020 [employer]. All rights reserved. The codes documented in this report are preliminary and upon computer laboratory technician reviewmay be revised to meet current compliance requirements. Kashmir Juares MD 09/02/2024 9:07:39 AM This report has been signed electronically.Kashmir Juares MD Number of Addenda: 0 Note Initiated On: 09/02/2024 8:48 AM Scope In: Scope Out: Endoscopy Department at [facility] - [address] [place] [phone] IMPRESSION: - Z-line regular, 38 cm from [...] of3 resultswithin the time period is included. Pathologist [facility] High Sensitivity Troponin I 19 <=54 ng/L LAB CHEMISTRY METHOD 09/02/2024 7:22 AM EDT [facility] Blood Venous blood specimen / Unknown Venipuncture / Unknown 09/02/2024 5:41 AM EDT 09/02/2024 6:47 AM EDT Narrative [facility] - 09/02/2024 7:22 AM EDT High levels of biotin in samples may falsely decrease hsTroponin values. Use caution when interpreting hsTroponin results in patients taking biotin who exhibit renal impairment (eGFR <60) or in patients taking more than 20 mg/day of biotin. us Kimberley ROSE LAB BLOOD ORDERABLES Final R esult [facility] [address] [place] [address], [place] [phone] * (ABNORMAL) Hepatic function panel (09/02/2024 5:41 AM EDT) Only the most recent of2 resultswithin the time period is included. [facility] Total Protein 7.1 6.0 - 8.0 g/dL LAB CHEMISTRY METHOD 09/02/2024 7:28 AM [facility] Albumin 4.0 3.2 - 5.0 g/dL LAB CHEMISTRY METHOD 09/02/2024 7:28 AM [facility] Total Bilirubin 1.1 0.0 - 1.4 mg/dL LAB CHEMISTRY METHOD 09/02/2024 7:28 AM [facility] Bilirubin, Direct 0.4(H) 0.0 - 0.3 mg/dL LAB CHEMISTRY METHOD 09/02/2024 7:28 AM [facility] Bilirubin, Indirect 0.7 0.0 - 1.1 mg/dL LAB CHEMISTRY METHOD 09/02/2024 7:28 AM [facility] ALT (SGPT) 65(H) 10 - 60 unit/L LAB CHEMISTRY METHOD 09/02/2024 7:28 AM [facility] AST (SGOT) 72(H) 10 - 42 unit/L LAB CHEMISTRY METHOD 09/02/2024 7:28 AM [facility] Alkaline Phosphatase 109 42 - 121 unit/L LAB CHEMISTRY METHOD 09/02/2024 7:28 AM [facility] Blood Venous blood specimen / Unknown Venipuncture / Unknown 09/02/2024 5:41 AM EDT 09/02/2024 6:46 AM EDT us Kimberley ROSE LAB BLOOD ORDERABLES Final R esult [facility] [address] [place] [address], * Drug abuse screen 8a panel, urine (09/02/2024 1:30 AM EDT) Amphetamine Screen, Ur Negative Negative LAB CHEMISTRY METHOD 09/02/2024 2:20 AM EDT [facility] Comment:Certain OTC medicati ons containing ephedrine, phenylephrine, pseudoephedrine and phenylpropanolamine can cause false positive results. Barbiturate Screen, Ur Negative Negative LAB CHEMISTRY METHOD 09/02/2024 2:20 AM EDT [facility] Benzodiazepine Screen, Ur Negative Negative LAB CHEMISTRY METHOD 09/02/2024 2:20 AM T [facility] Cocaine Screen, Ur Negative Negative LAB CHEMISTRY METHOD 09/02/2024 2:20 AM EDT [facility] Opiate Screen, Ur Negative Negative LAB CHEMISTRY METHOD 09/02/2024 2:20 AM T [facility] Cannabinoid (THC) Screen, Ur Negative Negative LAB CHEMISTRY METHOD 09/02/2024 2:20 AM [facility] Comment:Specimens from patie nts taking pantoprazole sodium (Protonix) have been shown to produce false positive results. Oxycodone Screen, Ur Negative Negative LAB CHEMISTRY METHOD 09/02/2024 2:20 AM EDT [facility] Fentanyl, Ur Negative Negative LAB CHEMISTRY METHOD 09/02/2024 2:20 AM [facility] Urine Urine specimen obtained by clean catch procedure / Unknown Non-blood Collection / Unknown 09/02/2024 1:30 AM EDT 09/02/2024 1:51 AM EDT Narrative [facility] - 09/02/2024 2:20 AM EDT [...] ROSE LAB URINE ORDERABLES Final R esult [facility] [address] [place] [address], [place] [phone] * (ABNORMAL) Methadone confirmation, urine (09/02/2024 1:30 AM EDT) Methadone Confirm Urine Negative ng/mL 09/04/2024 6:15 [...] developed and the performance characteristics determined by [facility]. This confirmation testing has not been cleared or approved by the FDA. The laboratory is regulated under CLIA as qualified to perform high-complexity testing. This test is used for patient testing purposes. It should not be regarded as investigational or for research. Test performed at [facility], [address], [place] [address] Lorin Yin MD, PhD - Sponsorship Manager Urine Urine specimen from urethra / Unknown Non-blood Collection / Unknown 09/02/2024 1:30 AM EDT 09/02/2024 1:52 AM EDT Kimberley ROSE LAB URINE ORDERABLES Final R esult [facility] [address] [place] [address] * Buprenorphine screen, urine (09/02/2024 1:30 AM EDT) Pathologist [facility] Buprenorphine Screen Urine Negative Negative LAB CHEMISTRY METHOD 09/02/2024 2:20 AM EDT [facility] Urine Urine specimen obtained by clean catch procedure / Unknown Non-blood Collection / Unknown 09/02/2024 1:30 AM EDT 09/02/2024 1:51 AM EDT Narrative [facility] - 09/02/2024 2:20 AM EDT Assay cutoff 5 ng/mL Semi-quantitative assay for screening purposes only. Unconfirmed screening result should not be used for non-medical purposes. *ALTERNATE METHOD CONFIRMATION DONE UPON REQUEST ONLY* Kimberley ROSE LAB URINE ORDERABLES Final R esult Performing Organization Address [facility]/ZIP Co de Phone Number [facility] [address] [place] [address], [place] [phone] * Methadone, urine (09/02/2024 1:30 AM EDT) [facility] Methadone Screen, Urine Negative Negative LAB CHEMISTRY METHOD 09/02/2024 2:20 AM EDT [facility] Comment: Assay cutoff 300 ng/mL Semi-quantitative assay for screening purposes only. Unconfirmed screening result should not be used for non-medical purposes. *ALTERNATE METHOD CONFIRMATION DONE UPON REQUEST ONLY* Urine Urine specimen obtained by clean catch procedure / Unknown Non-blood Collection / Unknown 09/02/2024 1:30 AM EDT 09/02/2024 1:51 AM EDT Kimberley ROSE LAB URINE ORDERABLES Final R esult [facility] [address] [place] [address], [place] [phone] * Yellow urine no additive (09/02/2024 1:30 AM EDT) [facility] Extra Tube Hold for add-ons. 09/02/2024 3:01 AM EDT [facility] Comment:Auto resulted. Urine Urine specimen obtained by clean catch procedure / Unknown 09/02/2024 1:30 AM EDT 09/02/2024 1:52 AM EDT Anil Rosales MD LAB URINE ORDERABLES Final Result Performing Organization Address [facility] Co de Phone Number [facility] [address] [place] [address], [place] [phone] * Phencyclidine, urine (09/02/2024 1:30 AM EDT) [facility] PCP Scrn, Ur Negative Negative LAB CHEMISTRY METHOD 09/02/2024 2:20 AM EDT [facility] Comment: Assay cutoff 25 ng/mL [...] Performing Organization Address [facility] Co de Phone Number [facility] [address] [place] [address], [place] [phone] * ECG 12 lead (09/02/2024 1:29 AM EDT) Only the most recent of3 resultswithin the time period is included. [facility] Ventricular Rate ECG 87 BPM GEMUSE Atrial Rate 87 BPM GEMUSE P-R Interval 172 ms GEMUSE QRS Duration 62 ms GEMUSE Q-T Interval 378 ms GEMUSE QTc 454 ms GEMUSE P Wave Preston 68 degrees GEMUSE R Preston -3 degrees GEMUSE T Preston 21 degrees GEMUSE ECG Interpretation Normal sinus [...] LAB COAGULATION METHOD 09/01/2024 7:53 PM EDT [facility] Blood Venous blood specimen / Unknown Venipuncture / Unknown 09/01/2024 7:31 PM EDT 09/01/2024 7:42 PM EDT Sarabjit Quiroz MD LAB BLOOD ORDERABLES Final Result Performing Organization Address [facility] Co de Phone Number [facility] [address] [place] [address], * (ABNORMAL) Ethanol (09/01/2024 7:12 PM EDT) Ethanol Level 237(H) 0 - 10 mg/dL LAB CHEMISTRY METHOD 09/01/2024 8:10 PM EDT [facility] Blood Venous blood specimen / Unknown Venipuncture / Unknown 09/01/2024 7:12 PM EDT 09/01/2024 7:34 PM EDT Sarabjit Quiroz MD LAB BLOOD ORDERABLES Final Result Performing Organization Address [facility] Co de Phone Number [facility] [address] [place] [address], * XR Chest 2 Views (09/01/2024 7:03 [...] Signed Date: 09/01/2024 22:49 ET Workstation ID: [id number] Transcribed By: Self Edit Transcribed Date: 09/01/2024 [...] Signed Date: 09/01/2024 22:49 ET Workstation ID: [id number] Transcribed By: Self Edit Transcribed Date: 09/01/2024 22:48 ET Anil Rosales MD IMG XR PROCEDURES Final Res ult * Protime-INR (09/01/2024 6:32 PM EDT) Protime 10.9 10.6 - 13.9 sec LAB COAGULATION METHOD 09/01/2024 7:00 PM EDT [facility] INR 0.9 LAB COAGULATION METHOD 09/01/2024 7:00 PM EDT [facility] Blood Venous blood specimen / Unknown Venipuncture / Unknown 09/01/2024 6:32 PM EDT 09/01/2024 6:41 PM EDT Sarabjit Quiroz MD LAB BLOOD ORDERABLES Final Result [facility] [address] [place] [address], [place] [phone] * Type and Screen (09/01/2024 6:32 PM EDT) ABO Group A 09/01/2024 8:37 PM EDT [facility] Rh Type Positive 09/01/2024 8:37 PM EDT [facility] Antibody Screen Negative 09/01/2024 8:37 PM EDT [facility] Blood Venous blood specimen / Unknown Venipuncture / Unknown 09/01/2024 6:32 PM EDT 09/01/2024 6:41 PM EDT Sarabjit Quiroz MD LAB BLOOD BANK TEST ORDERAB LES Final Result Performing Organization Address [facility]/ZIP Co de Phone Number [facility] [address] [place] [address], [place] [phone] * Ammonia (09/01/2024 6:32 PM EDT) Ammonia 29 11 - 35 mcmol/L LAB CHEMISTRY METHOD 09/01/2024 7:16 PM EDT [facility] Blood Venous blood specimen / Unknown Venipuncture / Unknown 09/01/2024 6:32 PM EDT 09/01/2024 6:41 PM EDT Sarabjit Quiroz MD LAB BLOOD ORDERABLES Final Result [facility] [address] [place] [address], [place] [phone] from Last 3 Months Insurance MEDICAID - [place] [employer] MEDICARE Member Subscriber Plan / Payer (Ef fective 2024-Present) Name:Rhona Gandara Relation to Subscriber:Self Name:Rhona Gandara Payer ID:[id number] Group ID:[id number] Type:Not on file Address: [address] [place] [id number] Advance Directives * Full Code - Default [...] currently active code status orders. Care Teams Tennis Ball Cover Cementer Relationship Specialty Start Date End Date Sanjay Carl NP [address] [place] [phone] PCP - General Family Medicine 06/30/24
--- OUTSIDE RECORDS SUMMARY | 2024-10-20 15:44 | XMS_ITS | Patient Health Record ---
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
--- OUTSIDE RECORDS SUMMARY | 2024-10-20 15:44 | XMS_ITS | Clinical Summary ---
Author Organization [facility] Address [address] [facility] [address] [place] [address] Phone Care Team Providers Care Supervisor Beam Department Name Role Phone Antoinette Zimmer MD Primary Care Provider [phone] Allergies Active Allergy Reactions Criticality Noted Date [...] Schizoaffective disorder 11/24/202003/2021 Overview (11/24/2020): cared at [facility]/ normal ct brain Tobacco dependence syndrome 11/24/2020 [...] va sopressin secretion 09/26/2018 11/24/2020 Overview (11/24/2020): Sap Basis is Dr Adam Briceno MD Migraine 04/07/2018 11/24/2020 Normocytic normochromic anemia 11/08/2017 11/24/2020 Dyskinesia of esophagus 11/16/201611/13 Overview (11/24/2020): normal EGD 11/15/[address] Coburn, functional dysphagia Periodic limb movement disorder 11/05/2016 11/24/2020 Malignant basal cell neoplasm of skin 02/22/2016 11/24/2020 Overview (11/24/2020): Face and trunk in past. Gastroesophageal reflux disease 11/08/2015 11/24/2020 Overview (11/24/2020): Pt no showed barium swallow at [facility] 12/02/15 10:30am. Hyperlipidemia 03/23/2015 11/24/2020 Overview (11/24/2020): [...] Overview (11/24/2020): Per patient viral load undetectable. [facility] gastroenterology 12/27 egd nad-dr escobedo 12/27-colonoscopy small [...] - PCV) 04/16/2019 04/16/2018, 05/02/2009 Influenza Vaccine (#1) 2024 9, 03/12/2016, 01/21/2015, Additional history exists Pneumococcal Vaccine: Peds (0 to 5 Years) and At-Risk Patients (6 to 49 Years) Discontinued 04/16/2018, 05/02/2009 Hepatitis B Vaccine Aged Out No longe r eligible based on patient's age to complete this topic Insurance * Guarantor: Rhona Gandara Account Type Relation to Patient Date of Phone Billing Address Personal/Family Self 1955 [address] ([id number]) [place] [phone] [place] [address] ([id number]) [place] [phone] Care Teams Supervisor Beam Department Relationship Specialty Start Date End Date Antoinette Zimmer MD [address] [place] [address] PCP - General Internal Medicine 11/25/20
== END 2024-10-20 15:38 | disposition home or self-care (01) ==
PROVIDERS: PCP Nurse Practitioner Family; Visit Provider Internal Medicine Nephrology
DX: I10 Essential (primary) hypertension (principal); E87.1 Hypo-osmolality and hyponatremia
CPT/HCPCS: 99214

== ENCOUNTER → 2024-10-20 15:00 | Outpatient (BNVA) | payer OTHER, SELFPAY | PROVIDERS: PCP Nurse Practitioner Family; Visit Provider Internal Medicine Nephrology | DX: E87.1 Hypo-osmolality and hyponatremia (principal); I10 Essential (primary) hypertension | CPT/HCPCS: 99212 ==

== ENCOUNTER 2024-12-10 11:30 | Outpatient (REF) | payer OTHER, SELFPAY ==
[2024-12-10 17:56] LABS: Anion Gap 13 (12-20); Blood Urea Nitrogen 7 mg/dL (9-16); Carbon Dioxide 27 mmol/L (22-29); Chloride 102 mmol/L (96-108); Estimated Glomerular Filt Rate > 60; Potassium 4.5 mmol/L (3.3-5.1); Sodium 137 mmol/L (135-145)
== END 2024-12-10 11:31 | disposition home or self-care (01) ==
LOC: HO.HKASLDS 11:30
PROVIDERS: PCP Nurse Practitioner Family; Visit Provider Internal Medicine Nephrology
DX: I10 Essential (primary) hypertension (principal); E87.1 Hypo-osmolality and hyponatremia; F17.210 Nicotine dependence, cigarettes, uncomplicated; Z79.899 Other long term (current) drug therapy
CPT/HCPCS: 36415; 80051; 82533; 82565; 84520; 99212

== ENCOUNTER 2024-12-10 11:30 | Outpatient (AMB) | payer OTHER, SELFPAY ==
--- NOTE | 2024-12-10 11:39 | HO.NEPHOV_ITS ---
Vital Signs 12/10/24 11:49 Height 5 ft Weight 130 lb BMI 25.4 BP 106/70 Blood Pressure Location Lt brachial Position Sitting Pulse 72 Pulse Source Pulse Oximeter Pulse Oximetry (%) 97 Oxygen Delivery Method Room Air Intake Visit Reasons: HFU-Conf Lead Military Analyst Required: No Accompanied by: Self / Same As Patient Allergies succinylcholine Adverse Reaction (Severe, Verified 12/10/24 11:49) choline estrace deficiency cefaclor (From Ceclor) Adverse Reaction (Intermediate, Verified 12/10/24 11:49) hives Penicillins Adverse Reaction (Intermediate, Verified 12/10/24 11:49) hives Sulfa (Sulfonamide Antibiotics) Adverse Reaction (Intermediate, Verified 12/10/24 11:49) hives Tetanus Vaccines and Toxoid Adverse Reaction (Verified 12/10/24 11:49) Hemiparesis HPI Comments Details: Rhona was seen in follow-up of her hyponatremia and hypertension. She has H/O Alcohol use disorder. She recently had a hospitalization for AMS and hyponatremia. She had taken demeclocycline the past. She has no new weakness or mentation changes. She has no edema, shortness of breath or orthostatic symptoms. She does not have any nausea, vomiting or diarrhea. She is taking sodium chloride tablet now. [facility] Medical History (Updated 10/14/24 @ 15:37 by Julia Hope MD) Alcohol abuse Drug abuse, IV Migraine with aura Neuroleptic-induced tardive dyskinesia COVID-19 vaccine series completed Back pain GERD (gastroesophageal reflux disease) Vertigo Anemia Hyponatremia Fracture of left femur Smoker Thyroid disease Asthma Schizoaffective disorder Hepatitis COPD (chronic obstructive pulmonary disease) Elevated cholesterol HTN (hypertension) Surgical History H/O skin graft S/P hardware removal Hx of elbow surgery History of pubovaginal sling History of esophagogastroduodenoscopy (EGD) Hx of colonoscopy History of appendectomy History of hip surgery Social History 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 Are you a primary manager urgent care to a significant other at home: No Do you presently have visiting nurse or other home services: Yes (INSIDE SALES ACCOUNT MANAGER) Patient Tobacco Use Status: Current everyday Tobacco user Tobacco use type: Cigarette Cigarette Packs Per Day: 0.25 Cigarettes Per Day: 2 Years Smoked: 44 On Nicotene patch and lozengers to quit smoking started 2 weeks ago Second Hand Smoke Exposure: Yes Advance Directives Date on File: 05/27/20 Review of Systems Const All systems reviewed & are unremarkable except as noted in HPI and below Physical Exam Vital Signs: Last Vital Signs Pulse 72 12/10/24 11:49 BP 106/70 12/10/24 11:49 Pulse Ox 97 12/10/24 11:49 Oxygen Delivery Method Room Air 12/10/24 11:49 BMI result Body Mass Index 25.4 Const General: comfortable and no acute distress Orientation/consciousness: patient oriented x3 HEENT Head: Yes normocephalic Mouth: Normal oral and palatal mucosa present Eyes EOM: EOMs intact bilaterally Neck Neck: Yes supple Resp Auscultation: clear to auscultation bilaterally Cardio Jugular venous distension: no JVD Rate: regular rate GI Palpation (GI): Soft to palpation Auscultation: normal bowel sounds General: Yes no CVA tenderness Back/Spine/Pelvis Back: no CVA tenderness Skin General skin exam: no rashes or lesions noted Neuro General: patient oriented x3 and moves all extremities Extrem General: Yes no pedal edema Results Reviewed Nephrology Results: Sodium, (135-145) 130 mmol/L L 10/14/24 Potassium, (3.3-5.1) 4.4 mmol/L 10/14/24 Chloride, (96-108) 98 mmol/L 10/14/24 Carbon Dioxide, (22-29) 25 mmol/L 10/14/24 BUN, (9-16) 7 mg/dL L 10/14/24 Creatinine, (0.5-1.4) 0.83 mg/dL 10/14/24 Assessment & Plan Assessment & Plan (1) HTN (hypertension): Code(s): I10 - Essential (primary) hypertension Category: Medical Qualifiers: Hypertension type: primary hypertension Qualified Code(s): I10 - Essential (primary) hypertension (2) Hyponatremia: Code(s): E87.1 - Hypo-osmolality and hyponatremia Category: Medical Plan Rhona has some hyponatremia due to excess ADH. Her volume status is quite optimal. She has no orthostatic symptoms or any symptoms which can potentially lead to volume depletion. She had taken demeclocycline the past which she had discontinued. She can continue oral sodium chloride tablet three times a day. Her blood pressure has been on goal on current medication regimen. All her questions were answered. Labs today and next week .Follow-up 2 weeks Orders: Orders Blood Urea Nitrogen Today E87.1 - Hypo-osmolality and hyponatremia Creatinine Today E87.1 - Hypo-osmolality and hyponatremia Cortisol Random Today E87.1 - Hypo-osmolality and hyponatremia Creatinine 1 Week E87.1 - Hypo-osmolality and hyponatremia Blood Urea Nitrogen 1 Week E87.1 - Hypo-osmolality and hyponatremia Electrolytes 1 Week E87.1 - Hypo-osmolality and hyponatremia Electrolytes Today E87.1 - Hypo-osmolality and hyponatremia Coding Level of Care Code Est Pt Level 4 (95596) Diagnoses Primary hypertension I10 Hypertension type: primary hypertension Hyponatremia E87.1
[2024-12-10 11:49] VITALS: BP 106/70; PULSE 72; O2SAT 97; BMI 25.4
--- OUTSIDE RECORDS SUMMARY | 2024-12-10 12:47 | XMS_ITS | Continuity of Care Document ---
Author Name [facility] Medical Address [address] [place] [address] Organization Unknown Address [address] [place] [address] Medications No known medications Problems No known problems
--- OUTSIDE RECORDS SUMMARY | 2024-12-10 12:47 | XMS_ITS | Encounter Summary ---
Author Organization [facility] Address [address] [place] [address] [place] [address] Phone Care Team Providers Care Lighting Director Name Role Phone Sole Hendricks MD Unavailable [phone] Sanjay Carl BOWL TOPPER Primary Care Provider [phone] Encounter Details Date Type Department Care Team (Late st Contact Info) Description 02/01/2023 Procedure Pass OR Admitting Dept - Virtual Department [address] [place] [address] Social History Tobacco Use Types Packs/Day Years Used Date Smoking Tobacco: Every Day Cigarettes Smokeless Tobacco: Never Alcohol Use Standard Drinks/Week Comments Yes 0 (1 standard drink = 0.6 oz pur e alcohol) Education Answer Date Recorded Are you interested in more education? Not on ana e 12/11/2022 Are you concerned about learning? Not on file 12/11/2022 No 12/11/2022 No 12/11/2022 Digital Access Answer Date Recorded No 12/11/2022 No 12/11/2022 Reliable internet access at home? Not on file 12/11/2022 Device with a working camera? Not on file Comments Unknown Sex and Gender Information Value Date Recorded Sex Assigned at Not on file Legal Sex Female 1:57 PM EDT Gender Identity Not on file Sexual Orientation Not on file documented as of this encounter Plan of Treatment Not on file documented as of this encounter Visit Diagnoses Not on filedocumented in this encounter Care Teams Lighting Director Relationship Specialty Start Date End Date Sanjay Carl, BOWL TOPPER [address] [place] [address] PCP - General Nurse Practitioner 12/19/22 Sole Hendricks MD [facility] [facility] [place] [address] Dermatology 12/12/22 documented as of this encounter Additional Source Comments The information contained in this document represents components of the legal health record. It is not the complete legal health record.[facility]
--- OUTSIDE RECORDS SUMMARY | 2024-12-10 12:48 | XMS_ITS | Patient Health Record ---
Author Organization [facility] Address [address] [facility] [address] [place] [address] Care Team Providers Care Supervisor Keymodule Assembly Name Role Phone HaynesNikcy Primary Care Provider Unavailab le Allergies Allergen [...] 12 % 1 application Externally Twice a day; Duration: 90 days 04/13/2021 Active Gabapentin 600 MG [...] 1 tablet as needed Orally Active Nystatin 594019 UNIT/GM 1 application Externally Twice a day; Duration: 90 days 04/04/2021 Active Cholecalciferol Acti ve [...] after a me al Orally Once a day; Duration: 14 days 01/30/2021 Active Meloxicam 15 MG as directed Orally Active Methylcellulose (Laxative) 500 MG 2 tablets with a full glass of water as needed Orally daily Active Nitrofurantoin Macrocrystal 50 MG 1 capsule at bedtime with food or milk Orally Once a day Not-Taking Depo-Provera Not-Scooter ing Terbinafine HCl 250 MG 1 tablet Orally O nce a day; Duration: 14 days 11/30/2020 Not-Takin g clonazePAM 2 MG 1 tablet Orally 3 times daily prn Active Ammonium Lactate 12 % 1 application Externally Twice a day; Duration: 30 days Active Amitriptyline HCl 100 MG 1 tablet at bed time Orally Once a day Active oxyBUTYnin Not-Takin g Problems Problem Type SNOMED Code ICD Code Onset Dates Problem Status W/U Status Risk Notes Problem Congenital metatarsus adductus, 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 Problem Congenital metatarsus adductus, 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) Active confirmed Problem Lower limb length difference (14022968) Lower limb length difference (M21.70) Active confirmed Problem Polyneuropathy (17002601) Other polyneuropathy (G62.89) Active confirmed Plan Of Treatment Pending Test Test Name Order Date Hepatic Function Panel (7) 05/02/2020 Insurance Providers Payer Name Payer Address Payer Phone Subscriber Number Group Number Insured Name Patient Relationship to Insured Coverage Start Date Coverage End Date [facility] [address] [place] [address] [phone] [facility] [id number] Rhona Gandara Self - patient is the [...]
--- OUTSIDE RECORDS SUMMARY | 2024-12-10 12:48 | XMS_ITS | Continuity of Care Document ---
Author Name Toney Galdamez Address [address] [place] [id number] Organization Unknown Address [address] [place] [address] Medications No known medications Problems No known problems
--- OUTSIDE RECORDS SUMMARY | 2024-12-10 12:48 | XMS_ITS | Encounter Summary ---
Author Organization [facility] Address [address] [facility] [address] [place] [address] Encounters * CPT with Toney Galdamez at [employer] on 2024-10-30 { reasonForRequest : vomiting/dizzy/trouble walking/diarrhea , patientRepor ts : Diarrhea no blood in stool; Nausea with or without vomiting , denies":[ Sharp focal or diffuse abdominal pain , Vomiting blood/coffee ground material& quot;, Bloating, jaundice new onset with pain , Nausea and vomiting greater than 2 hours with abdominal pain , Tearing pain that radiates to back , Food Impaction", Vague abdominal pain greater than 24 hours , Constipation , Inabilityto tolerate foods, fluids or daily medications , History of Heart Attack, in the setting of active chest pain , Active Chest pain, radiates to neck jaw and or arm , Diaph oretic/Sweating , Describes as crushing , Sudden onset of nausea/Vomitingand shortness of breath. , Shortness of Breath , Unable to speak in full sentences without distress , Palpitations, feeling dizzy , Chest pain, increased fatigue , CHF history, increased swelling and edema , Weakness/tachycardia ],"chiefComplaints : High Blood Pressure, Nausea / Vomiting , pmh : COPD/Asthma, Gastroesophageal Reflux Disease (GERD), Hypothyroidism, Hypertension , allergies : Penicillins, Bactrim, Ceclor, Sulfamethoxazole , otherAllergies :null,&q uot;painAssessment : , visitOutcome : , additionalComments : 69 y.o female complains of High Blood Pressure, Nausea / Vomiting\nPatient self referri ng\nSymptoms started yesterday. Blood pressure was high at MD visit 170/90 forgot to take BP meds prior to visit.\nc/o headache, denies lightheadedness or dizziness\ndenies any shortness of breath orchest pain \nC/o nausea of vomiting x 3 times yesterday and three times today\ndiarrhea for the last 2 days. able to hold down some foods and fluid \nhx of hyponatremia.\nrequesting insted visit\n\nIprovided information on the mobile health provider response time and advised the patient and/or caregiver to monitor reported signs and symptoms. I discussed the warning signs of when to seek emergency care. } Pt is a 69y.o. female requesting a visit for HTN and N&V. Pt stated she forgot to take her blood pressure medication before her Dr.'s office visit. Pt stated she felt dizzy and off balance. Pt stated this started yesterday and today. Pt Pt stated she was nauseated and vomited 3 times yesterday and today. Pt stated she last vomited around 1500hrs today and was still nauseated. Pt's VS were take n and noted. Pt's lung sounds are clear. There is no edema noted in the lower extremities. Pt's abdomen soft and non distended. Spoke to Dr. Mims in regard to the Pt. Dr. Mims requested a POC BMP, 12lead EKG, 1L NS and Zofran 4mg. 12Lead left side was done without any issues. 5 Right and allergies were gone over. IV site was cleaned with a alcohol prep pad, IV - saline lock, 20G, Right Forearm, 1 attempt, unsuccessful. 2x2 was secured with tape. IV site was cleaned with a alcohol prep pad, IV - saline lock, 20G, Left Hand, 1 attempt, successful. IV was secured with tegaderm. There is noinfiltrate. POC BMP was done without any issues. A 1L NS bag was hung and given without any issues.Pt was given Zofran 4mg SIVP without any issues. Pt's IV was removed after completing 1L NS. Dr. Mims wanted to know how the Pt feels. Pt stated she feels better and feels that her balance was better. Dr. Mims was advised of this. IV_(FLUIDS_AND/OR_MEDICATION), MEDICATION_IM, ORAL_MEDICATION, EKG, POC_BLOODWORK, URINE_DIPSTICK, ORTHOSTATIC_VITAL_SIGNS Written by Toney Galdamez on 2024-10-30
--- OUTSIDE RECORDS SUMMARY | 2024-12-10 12:48 | XMS_ITS | Encounter Summary ---
Author Organization [facility] Address [address] [facility] [address] [place] [address] Phone Care Team Providers Care Roving Sizer Name Role Phone Sole Hendricks MD Unavailable [phone] Sanjay Carl NP Primary Care Provider [phone] Encounter Details Date Type Department Care Team (Late st Contact Info) Description 05/17/2023 Procedure Pass [facility] Periop [address] [place] [address] Social History Tobacco Use Types Packs/Day Years [...] with a working camera? Not on file Intimate Partner Violence Answer Date R ecorded Are you denied basic needs s uch as food, clothing, or medical care? No 05/16/2023 In the past 12 months have y ou been in a relationship with a person who hurts, threatens, or tries to control you? No 05/16/2023 Are you denied basic needs s uch as food, clothing, or medical care? No 05/16/2023 In the past 12 months have y ou been in a relationship with a person who hurts, threatens, or tries to control you? No 05/16/2023 Comments Unknown Sex and Gender Information Value Date Recorded Sex Assigned at Not on file Legal Sex Female 1:57 PM EDT Gender Identity Not on file Sexual Orientation Not on file documented as of this encounter Plan of Treatment Not on file documented as of this encounter Visit Diagnoses Not on filedocumented in this encounter Care Teams Roving Sizer Relationship Specialty Start Date End Date Sanjay Carl, WILDLIFE REFUGE SPECIALIST [address] [place] [address] PCP - General Nurse Practitioner 12/19/22 Sole Hendricks MD [address] [place] [address] [place] [address] Dermatology 12/12/22 documented as of this encounter Additional Source Comments The information contained in this document represents components of the legal health record. It is not the complete legal health record.[facility]
--- OUTSIDE RECORDS SUMMARY | 2024-12-10 12:48 | XMS_ITS | Clinical Summary ---
Author Organization [facility] Address [address] [facility] [address] [place] [address] Phone Care Team Providers Care Dance Coach Name Role Phone Antoinette Zimmer MD Primary [...] Schizoaffective disorder 11/24/202003/2021 Overview (11/24/2020): cared at [facility]/ normal ct brain Tobacco dependence syndrome [...] va sopressin secretion 09/26/2018 11/24/2020 Overview (11/24/2020): Tapper Operator is Dr Adam Briceno MD Migraine 04/07/2018 11/24/2020 Normocytic normochromic anemia 11/08/2017 11/24/2020 Dyskinesia of esophagus 11/16/201611/13 Overview (11/24/2020): normal EGD 11/15/[address] Coburn, functional dysphagia Periodic limb movement disorder 11/05/2016 11/24/2020 Malignant basal cell neoplasm of skin 02/22/2016 11/24/2020 Overview (11/24/2020): Face and trunk in past. Gastroesophageal reflux disease 11/08/2015 11/24/2020 Overview (11/24/2020): Pt no showed barium swallow at [facility] 12/02/15 10:30am. Hyperlipidemia 03/23/2015 11/24/2020 Overview (11/24/2020): [...] Overview (11/24/2020): Per patient viral load undetectable. [facility] gastroenterology 12/27 egd nad-dr escobedo 12/27-colonoscopy [...] 04/16/2019 04/16/2018, 05/02/2009 Influenza Vaccine (#1) 2024 3, 12/25/2018, 03/12/2016, Additional history exists Pneumococcal Vaccine: Peds (0 to 5 Years) and At-Risk Patients (6 to 49 Years) Discontinued 04/16/2018, 05/02/2009 Hepatitis B Vaccine Aged Out No longe r eligible based on patient's age to complete this topic Insurance * Guarantor: Rhona Gandara Account Type Relation to Patient Date of Phone Billing Address Personal/Family Self 1955 [address] ([id number]) [place] [address] [place] [address] ([id number]) [place] [phone] Care Teams Dance Coach Relationship Specialty Start Date End Date Antoinette Zimmer MD [address] [place] [address] PCP - General Internal Medicine 11/25/20
--- OUTSIDE RECORDS SUMMARY | 2024-12-10 12:48 | XMS_ITS | Encounter Summary ---
Author Organization [facility] Address [address] [facility] [address] [place] [address] Phone Care Team Providers Care Nursing Home Manager Name Role Phone Sole Hendricks MD Unavailable Sanjay Carl NP Primary Care Provider [phone] Encounter Details Date Type Department Care Team (Late st Contact Info) Description 05/27/2023 Procedure Pass [facility] Periop [address] [place] [address] Social History Tobacco Use Types Packs/Day Years [...] tries to control you? No 05/16/2023 Comments No Sex and Gender Information Value Date Recorded Sex Assigned at Not on file Legal Sex Female 1:57 PM EDT Gender Identity Not on file Sexual Orientation Not on file documented as of this encounter Plan of Treatment Not on file documented as of this encounter Visit Diagnoses Not on filedocumented in this encounter Care Teams Nursing Home Manager Relationship Specialty Start Date End Date Sanjay Carl, QUALITY REVIEW TRAINER [address] [place] [address] PCP - General Nurse Practitioner 12/19/22 Sole Hendricks MD [address] [place] [address] [place] [address] Dermatology 12/12/22 documented as of this encounter Additional Source Comments The information contained in this document represents components of the legal health record. It is not the complete legal health record.[facility]
--- OUTSIDE RECORDS SUMMARY | 2024-12-10 12:48 | XMS_ITS | Clinical Summary ---
Author Organization [facility] Address [address] [place] [address] Phone Care Team Providers Care Expansion Envelope Maker Hand Name Role Phone Sanjay Carl NP Primary Care Provider [phone] Allergies Active Allergy Reactions Criticality Noted Date Comments Cefaclor Hives,Other 03/25/2013 Penicillins Hives,Other 03/25/2013 Sulfa (Sulfonamide Antibiotics) Hives 03/15 Medications albuterol HFA (PROAIR HFA ; PROVENTIL [...] mg total) by mouth at bedtime. Active erythromycin 5 mg/gram (0.5 %) ophthalmic ointment Apply to both eyes every 6 (six) hours for 5 days. 3.5 g 11/12/2024 11/18/19 Active Problems Problem Noted Date Diagnosed Date Gastrointestinal hemorrhage 09/01/2024 Encounters Date Type Department Care Team Description 11/12/2024 7:27 AM EDT - 11/12/2024 12:48 PM EDT Emergency [facility] Emergency [address] [place] [address] Danis Johnson DO Chemical conjunctivitis of both eyes (Primary Dx); Chronic bronchitis, unspecified chronic bronchitis type (CMS/HCC V24, CMS/HCC V28) Discharge Disposition: Home or Self Care from Last 3 Months Surgical History Surgery Date Site/Laterality Comments BLADDER SURGERY PROCEDURE: HISTORICAL BLADDER SURGERY; COMMENT: incontinence OTHER SURGICAL HISTORY 2010 PROCEDURE: OK UNLISTED PROCEDURE LEG/ANKLE; COMMENT: compartmental fasciitis OTHER SURGICAL HISTORY 10/30/10 PROCEDURE: COLONOSCOPY, SURGICAL; COMMENT: [facility] Dr Ortiz ELBOW SURGERY 07/27/13 PROCEDURE: HISTORICAL ELBOW SURGERY; COMMENT: left ulnar nerve COLONOSCOPY 09/01/15 PROCEDURE: HISTORICAL COLONOSCOPY; COMMENT: Dr Coburn, neg biopsies FOOT SURGERY 12/08/15 Right PROCEDURE: HISTORICAL FOOT SURGERY; COMMENT: first metatarsophalangeal joint replacement with hemiphalangectomy FOOT SURGERY 08/30/2016 Left PROCEDURE: HISTORICAL FOOT SURGERY; COMMENT: left 1st metatarsophlangeal joint replacement ESOPHAGOGASTRODUODENOSCOPY 11/15/2016 PROCEDURE: OK ESOPHAGOGASTRODUODENOSCOPY TRANSORAL DIAGNOSTIC; COMMENT: Dr Coburn dilated but met no resistance, normal EGD, Dx is functional dysphagia ESOPHAGOGASTRODUODENOSCOPY 10/23/2018 PROCEDURE: OK ESOPHAGOGASTRODUODENOSCOPY TRANSORAL DIAGNOSTIC; COMMENT: normal by Dr Alpesh Murphy OTHER SURGICAL HISTORY 02/14/2019 Left PROCEDURE: OK OPTX FEM SHFT FX W/INSJ IMED IMPLT W/WO SCREW; COMMENT: Dr Berrios at [facility], spontaneous Fx. Medical History Medical History Date Comments Schizoaffective disorder (CM S/HCC V24, CMS/HCC V28) DX:Schizoaffective disorder (HCC); COMMENT: cared at [facility] HTN (hypertension) DX:HTN (hyper tension) Osteoporosis [...] SIADH (syndrome of inappropr iate ADH production) ([facility] V24) 09/26/2018 DX:SIADH (syndrome of inappr opriate ADH production) ([facility]); COMMENT: Alteration Tailor is Dr Adam Briceno MD Depression Anxiety COPD (chronic obstructive pu lmonary disease) ([facility] V24, [facility] V28) Overactive bladder Basal cell carcinoma Family [...] care for your loved ones. For example, early childhood educator aide or elderly care for an older adult? [...] Sign Reading Time Taken Comments Blood Pressure 157/95 11/12/2024 12:18 PM EDT Pulse 93 11/12/2024 12:18 PM EDT Temperature 36.4 C (97.5 F) 11/12/2024 7:30 AM EDT Respiratory Rate 20 11/12/2024 12:18 PM EDT Oxygen Saturation 93% 11/12/2024 12:18 PM EDT Inhaled Oxygen Concentration - - [...] 2) 06/11/2018 04/16/2018 Pneumococcal Vaccine: 50+ Years (2 of 2 - PCV) 04/16/2019 04/16/2018, 05/02/2009 Cholesterol Screening (Lipid Panel) 03/18/2022 Colorectal Cancer Screening: Colonoscopy 03/18/2022 Hepatitis C Screening 03/18/2022 Lung Cancer Screening (Low Dose CT) 03/18/2022 Medicare Annual Wellness Visit 03/18/2022 Osteoporosis Screening (Bone Density Screening) 03/18/2022 COVID-19 Vaccine ( season) 2023 03/27/2023, 03/01/2022, 11/03/2021, Additional history exists Depression Screening 04/15/2024 Influenza Vaccine (#1) 2024 , 03/11/2023, 02/09/2022, Additional history exists Social Influencers of Health Screening 09/02/2025 09/02/2024 Falls Risk Assessment 09/04/2025 09/04/2024 Hypertension/CHF/CAD Annual BMP Blood Test 11/12/2025 11/12/2024, 09/04/2024, 09/03/2024, Additional history exists HIB Vaccines Aged Out [...] Procedure Name Priority Date/Time Associated Diagnosis Comments XR CHEST 2 VIEWS STAT 11/12/2024 9:13 AM EDT CBC WITH AUTO DIFFERENTIAL STAT 11/12/2024 8:41 AM EDT ETHANOL STAT 11/12/2024 8:41 AM EDT BASIC METABOLIC PANEL STAT 11/12/2024 8:41 AM EDT CBC AND DIFFERENTIAL STAT 11/12/2024 8:41 AM EDT from Last 3 Months Results * XR Chest 2 Views (11/12/2024 9:13 AM EDT) Anatomical Region Laterality Modality Body Radiographic Judith ging 11/12/2024 9:24 AM EDT Impressions 11/12/2024 9:25 AM EDT No acute pulmonary disease. Findings as above consistent with COPD. No change since 09/01/2024. Code 39835 -------- FINAL REPORT -------- Dictated By: Demetrio Krishnan Dictated Date: 11/12/2024 09:24 ET Assigned Physician: Demetrio Krishnan Reviewed and Electronically Signed By: Demetrio Krishnan Signed Date: 11/12/2024 09:25 ET Workstation ID: [id number] Transcribed By: Self Edit Transcribed Date: 11/12/2024 09:24 ET Narrative 11/12/2024 9:25 AM EDT HISTORY: The patient is a 69-year-old female with hypoxia and sleep apnea. FINDINGS: PA and lateral radiographs of the chest demonstrate normal appearance of the bony structures. The cardiac silhouette is within normal limits. The aortic knob is calcified. The lungs are again seen to be hyperinflated with flattening of the diaphragm consistent with chronic obstructive pulmonary disease, as also demonstrated on the prior study performed 09/01/2024. There is no consolidation, mass, pulmonary vascular congestion, or pleural effusion. Procedure Note Demetrio Krishnan MD - 11/12/2024 HISTORY: The patient is a 69-year-old female with hypoxia and sleepapnea. FINDINGS: PA and lateral radiographs of the chest demonstrate normalappearance of the bony structures. The cardiac silhouette is within normallimits. The aortic knob is calcified. The lungs are again seen to behyperinflated with flattening of the diaphragm consistent with chronicobstructive pulmonary disease, as also demonstrated on the prior studyperformed 09/01/2024. There is no consolidation, mass, pulmonary vascularcongestion, or pleural effusion. IMPRESSION: No acute pulmonary disease. Findings as above consistent with COPD. Nochange since 09/01/2024. Code 09418 -------- FINAL REPORT -------- Dictated By: Demetrio Krishnan Dictated Date: 11/12/2024 09:24 ET Assigned Physician: Demetrio Krishnan Reviewed and Electronically Signed By: Demetrio Krishnan Signed Date: 11/12/2024 09:25 ET Workstation ID: [id number] Transcribed By: Self Edit Transcribed Date: 11/12/2024 09:24 ET Danis Johnson DO IMG XR PROCEDURES Final Result * CBC auto differential (11/12/2024 8:41 AM EDT) WBC 6.7 4.8 - 10.8 K/mcL LAB HEMETOLOGY METHOD 11/12/2024 9:32 AM EDT [facility] RBC 4.80 3.80 - 4.80 M/mcL LAB HEMETOLOGY METHOD 11/12/2024 9:32 AM EDT [facility] Hemoglobin 14.4 11.5 - 16.0 g/dL LAB HEMETOLOGY METHOD 11/12/2024 9:32 AM EDT [facility] Hematocrit 42.7 35.0 - 47.0 % LAB HEMETOLOGY METHOD 11/12/2024 9:32 AM EDT [facility] MCV 89.3 79.0 - 98.0 FL LAB HEMETOLOGY METHOD 11/12/2024 9:32 AM EDT [facility] MCH 30.1 27.0 - 32.0 pcg LAB HEMETOLOGY METHOD 11/12/2024 9:32 AM [facility] MCHC 33.7 32.0 - 37.0 g/dL LAB HEMETOLOGY METHOD 11/12/2024 9:32 AM [facility] RDW 13.6 11.0 - 15.0 % LAB HEMETOLOGY METHOD 11/12/2024 9:32 AM [facility] Platelets 359 130 - 400 K/mcL LAB HEMETOLOGY METHOD 11/12/2024 9:32 AM [facility] MPV 8.6 7.0 - 11.0 FL LAB HEMETOLOGY METHOD 11/12/2024 9:32 AM [facility] NRBC 0.0 <1.0 % LAB HEMETOLOGY METHOD 11/12/2024 9:32 AM [facility] NRBC Absolute 0.00 <0.10 K/mcL LAB HEMETOLOGY METHOD 11/12/2024 9:32 AM [facility] Neutrophils Relative 56.0 % LAB HEMETOLOGY METHOD 11/12/2024 9:32 AM [facility] Lymphocytes Relative 25.1 % LAB HEMETOLOGY METHOD 11/12/2024 9:32 AM [facility] Monocytes Relative 14.5 % LAB HEMETOLOGY METHOD 11/12/2024 9:32 AM [facility] Eosinophils Relative 2.1 % LAB HEMETOLOGY METHOD 11/12/2024 9:32 AM [facility] Basophils Relative 1.9 % LAB HEMETOLOGY METHOD 11/12/2024 9:32 AM [facility] Immature Granulocytes Relative 0.4 % LAB HEMETOLOGY METHOD 11/12/2024 9:32 AM [facility] Neutrophils Absolute 3.73 1.50 - 7.00 K/mcL LAB HEMETOLOGY METHOD 11/12/2024 9:32 AM EDT [facility] Lymphocytes Absolute 1.68 1.00 - 5.00 K/[facility] LAB HEMETOLOGY METHOD 11/12/2024 9:32 AM EDT [facility] Monocytes Absolute 0.97 0.20 - 1.00 K/[facility] LAB HEMETOLOGY METHOD 11/12/2024 9:32 AM EDT [facility] Eosinophils Absolute 0.14 0.00 - 0.50 K/[facility] LAB HEMETOLOGY METHOD 11/12/2024 9:32 AM EDT [facility] Basophils Absolute 0.13 0.00 - 0.20 K/[facility] LAB HEMETOLOGY METHOD 11/12/2024 9:32 AM EDT [facility] Immature Granulocytes Absolute 0.03 0.00 - 0.03 K/[facility] LAB HEMETOLOGY METHOD 11/12/2024 9:32 AM EDT [facility] Blood Venous blood specimen / Unknown Venipuncture / Unknown 11/12/2024 8:41 AM EDT 11/12/2024 9:16 AM EDT Danis Johnson DO LAB BLOOD ORDERABLES Final Resu lt [facility] [address] [place] [address], * (ABNORMAL) Ethanol (11/12/2024 8:41 AM EDT) Ethanol Level 36(H) 0 - 10 mg/dL LAB CHEMISTRY METHOD 11/12/2024 9:51 AM EDT [facility] Blood Venous blood specimen / Unknown Venipuncture / Unknown 11/12/2024 8:41 AM EDT 11/12/2024 9:16 AM EDT us Danis Johnson LAB BLOOD ORDERABLES Final Resu lt [facility] [address] [place] [address], * (ABNORMAL) Basic metabolic panel (11/12/2024 8:41 AM EDT) Sodium 138 133 - 145 mmol/L LAB CHEMISTRY METHOD 11/12/2024 9:51 AM [facility] Potassium 4.0 3.5 - 5.5 mmol/L LAB CHEMISTRY METHOD 11/12/2024 9:51 AM [facility] Comment:Hemolysis present Chloride 105 96 - 110 mmol/L LAB CHEMISTRY METHOD 11/12/2024 9:51 AM [facility] CO2 25 21 - 32 mmol/L LAB CHEMISTRY METHOD 11/12/2024 9:51 AM [facility] Anion Gap 8 3 - 11 LAB CHEMISTRY METHOD 11/12/2024 9:51 AM [facility] Glucose 61(L) 70 - 100 mg/dL LAB CHEMISTRY METHOD 11/12/2024 9:51 AM [facility] BUN 7 5 - 25 mg/dL LAB CHEMISTRY METHOD 11/12/2024 9:51 AM [facility] Creatinine 0.81 0.50 - 1.10 mg/dL LAB CHEMISTRY METHOD 11/12/2024 9:51 AM [facility] eGFR 80 >=60 mL/min/1. 73m2 LAB CHEMISTRY METHOD 11/12/2024 9:51 AM [facility] Comment:Calculation based on the Chronic Kidney Disease Epidemiology Collaboration (CKD-EPI) equation refit without adjustment for race. BUN/Creatinine Ratio 8.6 LAB CHEMISTRY METHOD 11/12/2024 9:51 AM [facility] Calcium 9.7 8.5 - 10.5 mg/dL LAB CHEMISTRY METHOD 11/12/2024 9:51 AM EDT [facility] Blood Venous blood specimen / Unknown Venipuncture / Unknown 11/12/2024 8:41 AM EDT 11/12/2024 9:16 AM EDT us Danis Johnson DO LAB BLOOD ORDERABLES Final Resu lt [facility] [address] [place] [address], [place] [phone] from Last 3 Months Insurance MEDICAID - [place] [employer] MEDICARE Member Subscriber Plan / Payer (Ef fective 2024-Present) Name:Rhona Alcantar Relation to Subscriber:Self Name:AlcantarRhona kraus [place] Payer ID:[id number] Group ID:[id number] Type:Not on file Address: [address] [place] [address] Advance Directives * Full Code - Default [...] currently active code status orders. Care Teams Expansion Envelope Maker Hand Relationship Specialty Start Date End Date Sanjay Carl NP [address] [place] [phone] PCP - General Family Medicine 06/30/24
--- OUTSIDE RECORDS SUMMARY | 2024-12-10 12:48 | XMS_ITS | Encounter Summary ---
Author Organization [facility] Address [address] [place] [address] Phone Care Team Providers Care Space Systems Operations Superintendent Name Role Phone Sole Hendricks MD Unavailable [phone] Sanjay Carl NP Primary Care Provider [phone] Encounter Details Date Type Department Care Team (Late st Contact Info) Description 05/20/2023 Procedure Pass [facility] Periop [address] [place] [address] Social History Tobacco Use Types Packs/Day Years [...] on filedocumented in this encounter Care Teams Space Systems Operations Superintendent Relationship Specialty Start Date End Date Sanjay Carl, HR ADMINISTRATIVE ASSISTANT [address] [place] [address] PCP - General Nurse Practitioner 12/19/22 Sole Hendricks MD [address] [place] [address] [place] [address] Dermatology 12/12/22 documented as of this encounter Additional Source Comments The information contained in this document represents components of the legal health record. It is not the complete legal health record.[facility]
--- OUTSIDE RECORDS SUMMARY | 2024-12-10 12:48 | XMS_ITS | Clinical Summary ---
Author Organization [facility] Address [address] [place] [phone] Phone Care Team Providers Care Log Stacker Operator Name Role Phone Sole Hendricks MD Unavailable [phone] Sanjay Carl CASH APPLICATION REPRESENTATIVE Primary Care Provider [phone] Allergies Active Allergy Reactions Criticality Noted Date Comments Cefaclor Hives,Other (See Comments) 03/25/2013 Penicillins Hives,Other (See Comments) 03/25/2013 Succinylcholine Chloride Shortness Of Breath,Other (See Comments) High 05/17/2023 Per patient, respiratory depression/SOB after extubation after receiving this med for sedation during a surgery when she was 20 Sulfa (Sulfonamide Antibiotics) Hives 03/25/2013 Medications VENTOLIN HFA 90 mcg/actuation inhaler Inhale 2 puffs into the lungs every 6 (six) hours as needed. 3 Active amitriptyline (ELAVIL) 50 MG tablet Take 50 mg by mouth nightly at bedtime. at bedtime. 3 Active ARIPiprazole (ABILIFY) 20 MG tablet 3 Active atorvastatin (LIPITOR) 40 MG tablet Take 1 tablet by mouth every morning. 3 Active cholecalciferol (VITAMIN D3) 2,000 unit capsule Take 1 capsule by mouth every morning. 3 Active clonazePAM (KLONOPIN) 1 MG tablet Take 1 tablet by mouth 2 (two) times a day. 3 Active dilTIAZem (CARDIZEM CD) 240 MG 24 hr capsule Take 1 capsule by mouth every morning. 3 Active DULoxetine (CYMBALTA) 60 MG capsule 3 Active levothyroxine (SYNTHROID, LEVOTHROID) 150 MCG tablet TAKE 1 BY MOUTH DAILY FOR 6 DAYS AND 2 TABLETS ON THE 7TH DAY 3 Active loratadine (CLARITIN) 10 mg tablet 3 Active busPIRone (BUSPAR) 30 MG tablet 3 Active methenamine (HIPREX) 1 gram tablet Take 1 tablet by mouth 2 (two) times a day. 3 Active MYRBETRIQ 25 mg Tb24 Take 1 tablet by mouth every morning. 3 Active nicotine (NICODERM CQ) 21 mg/24 hr APPLY 1 PATCH TOPICALLY TO THE SKIN EVERY MORNING. REMOVE AT BEDTIME. DO NOT SMOKE WHILE WEARING PATCH 3 Active pantoprazole (PROTONIX) 40 MG tablet Take 1 tablet by mouth every morning. 3 Active sodium chloride 1,000 mg tablet 3 Active INCRUSE ELLIPTA 62.5 mcg/actuation inhalation INHALE 1 PUFF BY MOUTH EVERY 24 HOURS DOSES SHOULD BE TAKEN AT LEAST 24 HOURS APART 3 Active acetaminophen (TYLENOL) 325 mg tablet Take 2 tablets (650 mg total) by mouth every 6 (six) hours as needed. 0 4 Active ibuprofen (ADVIL,MOTRIN) 400 MG tablet Take 1 tablet (400 mg total) by mouth every 4 (four) hours as needed. 4 Active oxyCODONE 5 MG immediate release tablet Take 1 tablet (5 mg total) by mouth every 4 (four) hours as needed (Severe breakthrough pain >7/10). Partial fill ok 0 4 Active gabapentin (NEURONTIN) 300 MG capsule Take 2 capsules (600 mg total) by mouth 2 (two) times a day. 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 History of basal cell carcinoma 12/19/2022 Family history of nonmelanoma skin cancer 2022 Family History Relation Status Comments Father Mother Social History Tobacco Use Types Packs/Day Years [...] Sign Reading Time Taken Comments Blood Pressure 119/69 06/06/2023 12:55 PM EST Pulse 74 06/06/2023 12:55 PM EST Temperature 36.3 C (97.4 F) 05/29/2023 8:06 AM EST Respiratory Rate 16 06/06/2023 12:55 PM EST Oxygen Saturation 96% 06/06/2023 12:55 PM EST Inhaled Oxygen Concentration - - Weight 65.1 kg (143 lb 8 oz) 06/06/2023 12:55 PM EST Height 152.4 cm (5') 06/06/2023 12:55 PM EST Body Mass Index 28.03 06/06/2023 12:55 PM EST Plan of Treatment Health Maintenance Due Date Last Done Comments Adult Td,Tdap Booster 1955 LIPID PANEL 1955 DEPRESSION SCREENING 1969 SMOKING Hx and SMOKELESS TOBACCO SCREENING 1970 HEPATITIS C SCREENING 1975 MAMMOGRAM 1997 COLOGUARD 2002 COLONOSCOPY 2002 COLORECTAL CANCER SCREENING 2002 FIT TEST 2002 FOBT 2002 SIGMOIDOSCOPY 2002 VIRTUAL COLONOSCOPY 2002 RSV VACCINE (1 - Risk 60-74 years 1-dose series) 2017 ZOSTER VACCINES (2 of 2) 06/11/2018 04/16/2018 PNEUMOCOCCAL VACCINES (50+ years) (2 of 2 - PCV) 04/16/2019 04/16/2018 OSTEOPOROSIS SCREENING INITIAL (ONE-TIME) 2022 COVID-19 VACCINE ( season) 2023 03/27/2023, 03/01/2022, 11/03/2021, Additional history exists TSH LEVEL 05/21/2024 05/21/2023 INFLUENZA VACCINE (#1) 2024 , 02/09/2022, 02/03/2021, Additional history exists SCREENING FOR DIABETES 05/28/2026 05/28/2023 HEPATITIS A VACCINES Aged Out No long er eligible based on patient's age to complete this topic HIB VACCINES Aged Out No longer eligi ble based on patient's age to complete this topic MENINGOCOCCAL VACCINES (ACWY) Aged Out No longer eligible based on patient's age to complete this topic MENINGOCOCCAL VACCINES (B) Aged Out N o longer eligible based on patient's age to complete this topic Medical Devices Not on file Procedures Procedure Name Priority Date/Time Associated Diagnosis Comments TSH WITH REFLEX STAT 05/21/2023 6:26 AM EST from Last 3 Months or Most Recently Relevant to Health Maintenance Results * TSH with reflex (05/21/2023 6:26 AM EST) TSH 5.56 0.50 - 5.70 uIU/mL [facility] Blood 05/21/2023 6:26 AM EST 05/21/2023 7:00 AM EST Ernie Gonsales MD LAB BLOOD ORDERABLES Final Re sult [facility] [address] [place] [address] from Last 3 Months or Most Recently Relevant to Health Maintenance [place] [address] [place], [place] [id number] [place] [address] CARE MEDICARE REPLACEMENT CARE MEDICARE REPLACEMENT [address] [place] [address] CARE MEDICARE REPLACEMENT CARE MEDICARE REPLACEMENT CARE MEDICARE REPLACEMENT Advance Directives For more information, please contact: [phone] (9AM - 5PM [place], Saturday-Saturday) * Full Code (Latest Code Status on File) Date Activated Date Inactivated Comments 05/16/2023 6:17 PM Question Answer Comments Code Status Confirmed With: Patient Care Teams Log Stacker Operator Relationship Specialty Start Date End Date Sanjay Carl NP [address] [place] [address] PCP - General Nurse Practitioner 12/19/22 Sole Hendricks MD [facility] [place] [address] Dermatology 12/12/22 Additional Source Comments The information contained in this document represents components of the legal health record. It is not the complete legal health record.[facility]
== END 2024-12-10 12:06 | disposition home or self-care (01) ==
LOC: HO.HKAS 11:31
PROVIDERS: PCP Nurse Practitioner Family; Visit Provider Internal Medicine Nephrology
DX: I10 Essential (primary) hypertension (principal); E87.1 Hypo-osmolality and hyponatremia
CPT/HCPCS: 99214

== ENCOUNTER 2024-12-15 11:02 | Outpatient (REF) | payer OTHER, SELFPAY ==
--- OUTSIDE RECORDS SUMMARY | 2024-12-15 12:38 | XMS_ITS | Clinical Summary ---
Author Organization [facility] Address [address] [place] [address] Phone Care Team Providers Care Asbestos Wire Finisher Name Role Phone Antoinette Zimmer MD Primary [...] Schizoaffective disorder 11/24/202003/2021 Overview (11/24/2020): cared at [facility]/ normal ct brain Tobacco dependence syndrome [...] va sopressin secretion 09/26/2018 11/24/2020 Overview (11/24/2020): Bindery Machine Setter is Dr Adam Briceno MD Migraine 04/07/2018 11/24/2020 Normocytic normochromic anemia 11/08/2017 11/24/2020 Dyskinesia of esophagus 11/16/201611/13 Overview (11/24/2020): normal EGD 11/15/[address] Coburn, functional dysphagia Periodic limb movement disorder 11/05/2016 11/24/2020 Malignant basal cell neoplasm of skin 02/22/2016 11/24/2020 Overview (11/24/2020): Face and trunk in past. Gastroesophageal reflux disease 11/08/2015 11/24/2020 Overview (11/24/2020): Pt no showed barium swallow at [facility] 12/02/15 10:30am. Hyperlipidemia 03/23/2015 11/24/2020 [...] Overview (11/24/2020): Per patient viral load undetectable. [facility] gastroenterology 12/27 egd nad-dr escobedo 12/27-colonoscopy [...] Phone Billing Address Personal/Family Self 1955 [address] ([id number]) [place] [phone] [place] [address] ([id number]) [place] [phone] Care Teams Asbestos Wire Finisher Relationship Specialty Start Date End Date Antoinette Zimmer MD [address] [place] [address] PCP - General Internal Medicine 11/25/20
--- OUTSIDE RECORDS SUMMARY | 2024-12-15 12:38 | XMS_ITS | Clinical Summary ---
Author Organization [facility] Address [address] [place] [phone] Phone Care Team Providers Care Foam Molder Name Role Phone Sanjay Carl NP Primary Care Provider [phone] Allergies Active Allergy Reactions Criticality Noted Date [...] EDT - 11/12/2024 12:48 PM EDT Emergency [facility] Emergency [address] [place] [address] Danis Johnson DO Chemical conjunctivitis of both eyes (Primary Dx); Chronic bronchitis, unspecified chronic bronchitis type (CMS/HCC V24, CMS/HCC V28) Discharge Disposition: Home or Self Care from Last 3 Months Surgical History Surgery Date Site/Laterality Comments BLADDER SURGERY PROCEDURE: HISTORICAL BLADDER SURGERY; COMMENT: incontinence OTHER SURGICAL HISTORY 2010 PROCEDURE: [place] UNLISTED PROCEDURE LEG/ANKLE; COMMENT: compartmental fasciitis OTHER SURGICAL HISTORY 10/30/10 PROCEDURE: COLONOSCOPY, SURGICAL; COMMENT: [facility] Dr Ortiz ELBOW SURGERY 07/27/13 PROCEDURE: HISTORICAL ELBOW SURGERY; COMMENT: left ulnar nerve COLONOSCOPY 09/01/15 PROCEDURE: HISTORICAL COLONOSCOPY; COMMENT: Dr Coburn, neg biopsies FOOT SURGERY 12/08/15 Right PROCEDURE: HISTORICAL FOOT SURGERY; COMMENT: first metatarsophalangeal joint replacement with hemiphalangectomy FOOT SURGERY 08/30/2016 Left PROCEDURE: HISTORICAL FOOT SURGERY; COMMENT: left 1st metatarsophlangeal joint replacement ESOPHAGOGASTRODUODENOSCOPY 11/15/2016 PROCEDURE: AK ESOPHAGOGASTRODUODENOSCOPY TRANSORAL DIAGNOSTIC; COMMENT: Dr Coburn dilated but met no resistance, normal EGD, Dx is functional dysphagia ESOPHAGOGASTRODUODENOSCOPY 10/23/2018 PROCEDURE: AK ESOPHAGOGASTRODUODENOSCOPY TRANSORAL DIAGNOSTIC; COMMENT: normal by Dr Alpesh Murphy OTHER SURGICAL HISTORY 02/14/2019 Left PROCEDURE: AK OPTX FEM SHFT FX W/INSJ IMED IMPLT W/WO SCREW; COMMENT: Dr Berrios at [facility], spontaneous Fx. Medical History Medical History Date Comments Schizoaffective disorder (CM S/HCC V24, CMS/HCC V28) DX:Schizoaffective disorder (HCC); COMMENT: cared at [facility] HTN (hypertension) DX:HTN (hyper tension) Osteoporosis DX:Osteoporosis; [...] SIADH (syndrome of inappropr iate ADH production) ([facility] V24) 09/26/2018 DX:SIADH (syndrome of inappr opriate ADH production) ([facility]); COMMENT: Paste Up Worker is Dr Adam Briceno MD Depression Anxiety COPD (chronic obstructive pu lmonary disease) ([facility] V24, [facility] V28) Overactive bladder Basal cell carcinoma Family [...] your loved ones. For example, child care development specialist or elderly care for an older adult? [...] 03/18/2022 Osteoporosis Screening (Bone Density Screening) 03/18/2022 Depression Screening 04/15/2024 COVID-19 Vaccine ( season) 2024 03/27/2023, 03/01/2022, 11/03/2021, Additional history exists Influenza [...] with COPD. No change since 09/01/2024. Code 92774 -------- FINAL REPORT -------- Dictated By: Demetrio Krishnan Dictated Date: 11/12/2024 09:24 ET Assigned Physician: Demetrio Krishnan Reviewed and Electronically Signed By: Demetrio Krishnan Signed Date: 11/12/2024 09:25 ET Workstation ID: [id number] Transcribed By: Self Edit Transcribed Date: 11/12/2024 [...] consistent with COPD. Nochange since 09/01/2024. Code 94801 -------- FINAL REPORT -------- Dictated By: Demetrio Krishnan Dictated Date: 11/12/2024 09:24 ET Assigned Physician: Demetrio Krishnan Reviewed and Electronically Signed By: Demetrio Krishnan Signed Date: 11/12/2024 09:25 ET Workstation ID: [id number] Transcribed By: Self Edit Transcribed Date: 11/12/2024 09:24 ET Danis Johnson DO IMG XR PROCEDURES Final Result * CBC auto differential (11/12/2024 8:41 AM EDT) WBC 6.7 4.8 - 10.8 K/mcL LAB HEMETOLOGY METHOD 11/12/2024 9:32 AM EDT [facility] RBC 4.80 3.80 - 4.80 M/mcL LAB HEMETOLOGY METHOD 11/12/2024 9:32 AM EDT [facility] Hemoglobin 14.4 11.5 - 16.0 g/dL LAB HEMETOLOGY METHOD 11/12/2024 9:32 AM EDT [facility] Hematocrit 42.7 35.0 - 47.0 % LAB HEMETOLOGY METHOD 11/12/2024 9:32 AM EDT [facility] MCV 89.3 79.0 - 98.0 FL LAB HEMETOLOGY METHOD 11/12/2024 9:32 AM EDT [facility] MCH 30.1 27.0 - 32.0 pcg LAB HEMETOLOGY METHOD 11/12/2024 9:32 AM [facility] MCHC 33.7 32.0 - 37.0 g/dL LAB HEMETOLOGY METHOD 11/12/2024 9:32 AM [facility] RDW 13.6 11.0 - 15.0 % LAB HEMETOLOGY METHOD 11/12/2024 9:32 AM [facility] Platelets 359 130 - 400 K/mcL LAB HEMETOLOGY METHOD 11/12/2024 9:32 AM [facility] MPV 8.6 7.0 - 11.0 FL LAB HEMETOLOGY METHOD 11/12/2024 9:32 AM [facility] NRBC 0.0 <1.0 % LAB HEMETOLOGY METHOD 11/12/2024 9:32 AM [facility] NRBC Absolute 0.00 <0.10 K/mcL LAB HEMETOLOGY METHOD 11/12/2024 9:32 AM [facility] Neutrophils Relative 56.0 % LAB HEMETOLOGY METHOD 11/12/2024 9:32 AM [facility] Lymphocytes Relative 25.1 % LAB HEMETOLOGY METHOD 11/12/2024 9:32 AM [facility] Monocytes Relative 14.5 % LAB HEMETOLOGY METHOD 11/12/2024 9:32 AM [facility] Eosinophils Relative 2.1 % LAB HEMETOLOGY METHOD 11/12/2024 9:32 AM [facility] Basophils Relative 1.9 % LAB HEMETOLOGY METHOD 11/12/2024 9:32 AM [facility] Immature Granulocytes Relative 0.4 % LAB HEMETOLOGY METHOD 11/12/2024 9:32 AM [facility] Neutrophils Absolute 3.73 1.50 - 7.00 K/mcL LAB HEMETOLOGY METHOD 11/12/2024 9:32 AM EDT [facility] Lymphocytes Absolute 1.68 1.00 - 5.00 K/[facility] LAB HEMETOLOGY METHOD 11/12/2024 9:32 AM EDT [facility] Monocytes Absolute 0.97 0.20 - 1.00 K/[facility] LAB HEMETOLOGY METHOD 11/12/2024 9:32 AM EDT [facility] Eosinophils Absolute 0.14 0.00 - 0.50 K/[facility] LAB HEMETOLOGY METHOD 11/12/2024 9:32 AM EDT [facility] Basophils Absolute 0.13 0.00 - 0.20 K/[facility] LAB HEMETOLOGY METHOD 11/12/2024 9:32 AM EDT [facility] Immature Granulocytes Absolute 0.03 0.00 - 0.03 K/[facility] LAB HEMETOLOGY METHOD 11/12/2024 9:32 AM EDT [facility] Blood Venous blood specimen / Unknown Venipuncture / Unknown 11/12/2024 8:41 AM EDT 11/12/2024 9:16 AM EDT Danis Johnson DO LAB BLOOD ORDERABLES Final Resu lt [facility] [address] [place] [address], * (ABNORMAL) Ethanol (11/12/2024 8:41 AM EDT) Ethanol Level 36(H) 0 - 10 mg/dL LAB CHEMISTRY METHOD 11/12/2024 9:51 AM EDT [facility] Blood Venous blood specimen / Unknown Venipuncture / Unknown 11/12/2024 8:41 AM EDT 11/12/2024 9:16 AM EDT us Danis Johnson LAB BLOOD ORDERABLES Final Resu lt [facility] [address] [place] [address], * (ABNORMAL) Basic metabolic panel (11/12/2024 8:41 AM EDT) Sodium 138 133 - 145 mmol/L LAB CHEMISTRY METHOD 11/12/2024 9:51 AM [facility] Potassium 4.0 3.5 - 5.5 mmol/L LAB CHEMISTRY METHOD 11/12/2024 9:51 AM [facility] Comment:Hemolysis present Chloride 105 96 - 110 mmol/L LAB CHEMISTRY METHOD 11/12/2024 9:51 AM [facility] CO2 25 21 - 32 mmol/L LAB CHEMISTRY METHOD 11/12/2024 9:51 AM [facility] Anion Gap 8 3 - 11 LAB CHEMISTRY METHOD 11/12/2024 9:51 AM [facility] Glucose 61(L) 70 - 100 mg/dL LAB CHEMISTRY METHOD 11/12/2024 9:51 AM [facility] BUN 7 5 - 25 mg/dL LAB CHEMISTRY METHOD 11/12/2024 9:51 AM [facility] Creatinine 0.81 0.50 - 1.10 mg/dL LAB CHEMISTRY METHOD 11/12/2024 9:51 AM [facility] eGFR 80 >=60 mL/min/1. 73m2 LAB CHEMISTRY METHOD 11/12/2024 9:51 AM [facility] Comment:Calculation based on the Chronic Kidney Disease Epidemiology Collaboration (CKD-EPI) equation refit without adjustment for race. BUN/Creatinine Ratio 8.6 LAB CHEMISTRY METHOD 11/12/2024 9:51 AM [facility] Calcium 9.7 8.5 - 10.5 mg/dL LAB CHEMISTRY METHOD 11/12/2024 9:51 AM EDT [facility] Blood Venous blood specimen / Unknown Venipuncture / Unknown 11/12/2024 8:41 AM EDT 11/12/2024 9:16 AM EDT us Danis Johnson DO LAB BLOOD ORDERABLES Final Resu lt [facility] [address] [place] [address], [place] [phone] from Last 3 Months Insurance MEDICAID - [place] [employer] MEDICARE Member Subscriber Plan / Payer (Ef fective 2024-Present) Name:Rhona Alcantar Relation to Subscriber:Self Name:AlcantarRhona kraus [place] Payer ID:[id number] Group ID:[id number] Type:Not on file Address: [address] [place] [id number] Advance Directives * Full Code - Default [...] currently active code status orders. Care Teams Foam Molder Relationship Specialty Start Date End Date Sanjay Carl NP [address] [place] [phone] PCP - General Family Medicine 06/30/24
--- OUTSIDE RECORDS SUMMARY | 2024-12-15 12:38 | XMS_ITS | Encounter Summary ---
Author Organization [facility] Address [address] [place] [address] Phone Care Team Providers Care Telegraph Repeater Technician Name Role Phone Sole Hendricks MD Unavailable [phone] Sanjay Carl NP Primary Care Provider Encounter Details Date Type Department Care Team (Late st Contact Info) Description 05/20/2023 Procedure Pass [facility] Periop [address] [place] [address] Social History Tobacco Use Types Packs/Day Years [...] on filedocumented in this encounter Care Teams Telegraph Repeater Technician Relationship Specialty Start Date End Date Sanjay Carl, OBSTETRICS TEACHER [address] [place] [address] PCP - General Nurse Practitioner 12/19/22 Sole Hendricks MD [address] [place] [address] [place] [address] Dermatology 12/12/22 documented as of this encounter Additional Source Comments The information contained in this document represents components of the legal health record. It is not the complete legal health record.[facility]
--- OUTSIDE RECORDS SUMMARY | 2024-12-15 12:38 | XMS_ITS | Encounter Summary ---
Author Organization [facility] Address [address] [place] [address] [place] [address] Phone Care Team Providers Care Boiler Tester Name Role Phone oSle Hendricks MD Unavailable [phone] Sanjay Carl GENETIC COUNSELOR Primary Care Provider [phone] Encounter Details Date Type Department Care Team (Late st Contact Info) Description 02/01/2023 Procedure Pass [place] Admitting Dept - Virtual Department [address] [place] [address] Social History Tobacco Use Types Packs/Day Years [...] on filedocumented in this encounter Care Teams Boiler Tester Relationship Specialty Start Date End Date Sanjay Carl, GENETIC COUNSELOR [address] [place] [address] PCP - General Nurse Practitioner 12/19/22 Sole Hendricks MD [facility] [facility] [place] [address] Dermatology 12/12/22 documented as of this encounter Additional Source Comments The information contained in this document represents components of the legal health record. It is not the complete legal health record.[facility]
--- OUTSIDE RECORDS SUMMARY | 2024-12-15 12:38 | XMS_ITS | Encounter Summary ---
Author Organization [facility] Address [address] [facility] [address] [facility] [address] [place] [address] Phone Care Team Providers Care Director Safety Council Name Role Phone Sole Hendricks MD Unavailable [phone] Sanjay Carl NP Primary Care Provider [phone] Encounter Details Date Type Department Care Team (Late st Contact Info) Description 05/27/2023 Procedure Pass [facility] Periop [address] [place] [address] Social History Tobacco Use Types Packs/Day Years [...] on filedocumented in this encounter Care Teams Director Safety Council Relationship Specialty Start Date End Date Sanjay Carl, HOP TRAINER [address] [place] [address] PCP - General Nurse Practitioner 12/19/22 Sole Hendricks MD [address] [place] [address] [place] [address] Dermatology 12/12/22 documented as of this encounter Additional Source Comments The information contained in this document represents components of the legal health record. It is not the complete legal health record.[facility]
--- OUTSIDE RECORDS SUMMARY | 2024-12-15 12:38 | XMS_ITS | Clinical Summary ---
Author Organization [facility] Address [address] [facility] [address] [place] [address] Phone Care Team Providers Care Press Maintainer Name Role Phone Sole Hendricks MD Unavailable [phone] Sanjay Carl CITY ROUTE DRIVER Primary Care Provider [phone] Allergies Active Allergy Reactions Criticality Noted Date [...] EST) TSH 5.56 0.50 - 5.70 uIU/mL [facility] Blood 05/21/2023 6:26 AM EST 05/21/2023 7:00 AM EST Ernie Gonsales MD LAB BLOOD ORDERABLES Final Re sult [facility] [address] [place] [address] from Last 3 Months or Most Recently Relevant to Health Maintenance Insurance [address] [place], [place] [id number] [place] [address] CARE MEDICARE REPLACEMENT CARE MEDICARE REPLACEMENT [address] [place] [address] CARE MEDICARE REPLACEMENT CARE MEDICARE REPLACEMENT CARE MEDICARE REPLACEMENT Advance Directives For more information, please contact: [phone] (9AM - 5PM [place], Saturday-Saturday) * Full Code (Latest Code Status on File) Date Activated Date Inactivated Comments 05/16/2023 6:17 PM Question Answer Comments Code Status Confirmed With: Patient Care Teams Press Maintainer Relationship Specialty Start Date End Date Sanjay Carl NP [address] [place] [address] PCP - General Nurse Practitioner 12/19/22 Sole Hendricks MD [facility] [place] [address] Dermatology 12/12/22 Additional Source Comments The information contained in this document represents components of the legal health record. It is not the complete legal health record.[facility]
--- OUTSIDE RECORDS SUMMARY | 2024-12-15 12:38 | XMS_ITS | Encounter Summary ---
Author Organization [facility] Address [address] [place] [address] Phone Care Team Providers Care Sales Consultant Name Role Phone Sole Hendricks MD Unavailable [phone] Sanjay Carl NP Primary Care Provider Encounter Details Date Type Department Care Team (Late st Contact Info) Description 05/17/[address] [facility] Periop [address] [place] [address] Social History Tobacco Use Types Packs/Day Years [...] on filedocumented in this encounter Care Teams Sales Consultant Relationship Specialty Start Date End Date Sanjay Carl, SAP BPC DEVELOPER [address] [facility] [place] [address] PCP - General Nurse Practitioner 12/19/22 Sole Hendricks MD [address] [place] [address] [place] [address] Dermatology 12/12/22 documented as of this encounter Additional Source Comments The information contained in this document represents components of the legal health record. It is not the complete legal health record.[facility]
--- OUTSIDE RECORDS SUMMARY | 2024-12-15 12:39 | XMS_ITS | Patient Health Record ---
Author Organization [facility] Address [address] [place] [address] Care Team Providers Care Cash Register Balancer Name Role Phone HaynesNicky Primary Care Provider [...] 1 tablet as needed Orally Active Nystatin 334933 UNIT/GM 1 application Externally Twice a day; [...] Active confirmed Problem Lower limb length difference (84229267) Lower limb length difference (M21.70) Active confirmed Problem Polyneuropathy (41425421) Other polyneuropathy (G62.89) Active confirmed Plan Of Treatment Pending Test Test Name Order Date Hepatic Function Panel (7) 05/02/2020 Insurance Providers Payer Name Payer Address Payer Phone Subscriber Number Group Number Insured Name Patient Relationship to Insured Coverage Start Date Coverage End Date [facility] [address] [facility] [place] [place] [address] [phone] [facility] [id number] Rhona Gandara Self - patient is the [...]
[2024-12-15 18:15] LABS: Anion Gap 15 (12-20); Blood Urea Nitrogen 10 mg/dL (9-16); Carbon Dioxide 23 mmol/L (22-29); Chloride 99 mmol/L (96-108); Estimated Glomerular Filt Rate > 60; Potassium 4.9 mmol/L (3.3-5.1); Sodium 132 mmol/L (135-145)
== END 2024-12-15 11:03 | disposition home or self-care (01) ==
LOC: HO.HKASLDS 11:02
PROVIDERS: Visit Provider Internal Medicine Nephrology
DX: E87.1 Hypo-osmolality and hyponatremia (principal)
CPT/HCPCS: 36415; 80051; 82565; 84520

== ENCOUNTER 2024-12-22 13:46 | Outpatient (AMB) | payer OTHER, SELFPAY ==
--- NOTE | 2024-12-22 13:52 | HO.NEPHOV ---
Vital Signs 12/22/24 14:04 Height 5 ft Weight 129 lb BMI 25.2 BP 120/60 Blood Pressure Location Lt brachial Position Sitting Pulse 83 Pulse Source Pulse Oximeter Pulse Oximetry (%) 96 Oxygen Delivery Method Room Air Intake Visit Reasons: 2mon follow-up w/labs-Conf Soccer Commentator Required: No Accompanied by: Self / Same As Patient Allergies succinylcholine Adverse Reaction (Severe, Verified 12/22/24 14:03) choline estrace deficiency cefaclor (From Ceclor) Adverse Reaction (Intermediate, Verified 12/22/24 14:03) hives Penicillins Adverse Reaction (Intermediate, Verified 12/22/24 14:03) hives Sulfa (Sulfonamide Antibiotics) Adverse Reaction (Intermediate, Verified 12/22/24 14:03) hives Tetanus Vaccines and Toxoid Adverse Reaction (Verified 12/22/24 14:03) Hemiparesis HPI Comments Details: Rhona was seen in follow-up of her hyponatremia and hypertension. She has H/O Alcohol use disorder. She recently had a hospitalization for AMS and hyponatremia. She had taken demeclocycline the past. She has no new weakness or mentation changes. She has no edema, shortness of breath or orthostatic symptoms. She does not have any nausea, vomiting or diarrhea. She is taking sodium chloride tablet now. [facility] Medical History (Updated 10/14/24 @ 15:37 by Julia Hope MD) Alcohol abuse Drug abuse, IV Migraine with aura Neuroleptic-induced tardive dyskinesia COVID-19 vaccine series completed Back pain GERD (gastroesophageal reflux disease) Vertigo Anemia Hyponatremia Fracture of left femur Smoker Thyroid disease Asthma Schizoaffective disorder Hepatitis COPD (chronic obstructive pulmonary disease) Elevated cholesterol HTN (hypertension) Surgical History H/O skin graft S/P hardware removal Hx of elbow surgery History of pubovaginal sling History of esophagogastroduodenoscopy (EGD) Hx of colonoscopy History of appendectomy History of hip surgery Social History Household Members Other:: AN EMPLOYEE SPONSOR OR ADVOCATE AND Are you a primary rn managed care to a significant other at home: No Do you presently have visiting nurse or other home services: Yes (AN EMPLOYEE SPONSOR OR ADVOCATE AND) Patient Tobacco Use Status: Current everyday Tobacco user Tobacco use type: Cigarette Cigarette Packs Per Day: 0.25 Cigarettes Per Day: 2 Years Smoked: 44 On Nicotene patch and lozengers to quit smoking started 2 weeks ago Second Hand Smoke Exposure: Yes Advance Directives Date on File: 05/27/20 Review of Systems Const All systems reviewed & are unremarkable except as noted in HPI and below Physical Exam Vital Signs: Last Vital Signs Pulse 83 12/22/24 14:04 BP 120/60 12/22/24 14:04 Pulse Ox 96 12/22/24 14:04 Oxygen Delivery Method Room Air 12/22/24 14:04 BMI result Body Mass Index 25.2 Const General: comfortable and no acute distress Orientation/consciousness: patient oriented x3 HEENT Head: Yes normocephalic Mouth: Normal oral and palatal mucosa present Eyes EOM: EOMs intact bilaterally Neck Neck: Yes supple Resp Auscultation: clear to auscultation bilaterally Cardio Jugular venous distension: no JVD Rate: regular rate GI Palpation (GI): Soft to palpation Auscultation: normal bowel sounds General: Yes no CVA tenderness Back/Spine/Pelvis Back: no CVA tenderness Skin General skin exam: no rashes or lesions noted Neuro General: patient oriented x3 and moves all extremities Extrem General: Yes no pedal edema Results Reviewed Nephrology Results: Sodium, (135-145) 132 mmol/L L 12/15/24 Potassium, (3.3-5.1) 4.9 mmol/L 12/15/24 Chloride, (96-108) 99 mmol/L 12/15/24 Carbon Dioxide, (22-29) 23 mmol/L 12/15/24 BUN, (9-16) 10 mg/dL 12/15/24 Creatinine, (0.5-1.4) 0.79 mg/dL 12/15/24 Assessment & Plan Assessment & Plan (1) HTN (hypertension): Code(s): I10 - Essential (primary) hypertension Category: Medical Qualifiers: Hypertension type: primary hypertension Qualified Code(s): I10 - Essential (primary) hypertension (2) Hyponatremia: Code(s): E87.1 - Hypo-osmolality and hyponatremia Category: Medical Plan Rhona has some hyponatremia due to excess ADH. Her volume status is quite optimal. She has no orthostatic symptoms or any symptoms which can potentially lead to volume depletion. She had taken demeclocycline the past which she had discontinued. She can continue oral sodium chloride tablet three times a day. Her blood pressure has been on goal on current medication regimen. All her questions were answered. Follow-up 2 weeks Orders: Orders Electrolytes 1 Month E87.1 - Hypo-osmolality and hyponatremia, I10 - Essential (primary) hypertension Creatinine 1 Month E87.1 - Hypo-osmolality and hyponatremia, I10 - Essential (primary) hypertension Blood Urea Nitrogen 1 Month E87.1 - Hypo-osmolality and hyponatremia, I10 - Essential (primary) hypertension Coding Level of Care Code Est Pt Level 4 (85281) Diagnoses Primary hypertension I10 Hypertension type: primary hypertension Hyponatremia E87.1
[2024-12-22 14:04] VITALS: BP 120/60; PULSE 83; O2SAT 96; BMI 25.2
--- OUTSIDE RECORDS SUMMARY | 2024-12-22 16:24 | XMS_ITS | Encounter Summary ---
Author Organization [facility] Address [address] [place] [address] Phone Care Team Providers Care Eye Clinic Manager Name Role Phone Sole Hendricks MD Unavailable [phone] Sanjay Carl NP Primary Care Provider [phone] Encounter Details Date Type Department Care Team (Late st Contact Info) Description 05/27/2023 Procedure Pass [facility] Periop [address] [place] [address] Social History Tobacco Use Types Packs/Day Years [...] on filedocumented in this encounter Care Teams Eye Clinic Manager Relationship Specialty Start Date End Date Sanjay Carl, FRUIT OR NUT GROWER [address] [place] [address] PCP - General Nurse Practitioner 12/19/22 Sole Hendricks MD [address] [place] [address] [place] [address] Dermatology 12/12/22 documented as of this encounter Additional Source Comments The information contained in this document represents components of the legal health record. It is not the complete legal health record.[facility]
--- OUTSIDE RECORDS SUMMARY | 2024-12-22 16:24 | XMS_ITS | Encounter Summary ---
Author Organization [facility] Address [address] [place] [address] Phone Care Team Providers Care Sizer Machine Name Role Phone Sole Hendricks MD Unavailable [phone] Sanjay Carl NP Primary Care Provider [phone] Encounter Details Date Type Department Care Team (Late st Contact Info) Description 05/20/2023 Procedure Pass [facility] Periop [address] [place] [address] Social History Tobacco Use Types Packs/Day Years [...] on filedocumented in this encounter Care Teams Sizer Machine Relationship Specialty Start Date End Date Sanjay Carl, SUPERVISOR NURSE [address] [place] [address] PCP - General Nurse Practitioner 12/19/22 Sole Hendricks MD [address] [place] [address] [place] [address] Dermatology 12/12/22 documented as of this encounter Additional Source Comments The information contained in this document represents components of the legal health record. It is not the complete legal health record.[facility]
--- OUTSIDE RECORDS SUMMARY | 2024-12-22 16:24 | XMS_ITS | Patient Health Record ---
Author Organization [facility] Address [address] [place] [address] Care Team Providers Care Public Health Worker Name Role Phone HaynesNicky Primary Care Provider [...] 1 tablet as needed Orally Active Nystatin 942463 UNIT/GM 1 application Externally Twice a day; [...] Active confirmed Problem Lower limb length difference (90371614) Lower limb length difference (M21.70) Active confirmed Problem Polyneuropathy (25089611) Other polyneuropathy (G62.89) Active confirmed Plan Of Treatment Pending Test Test Name Order Date Hepatic Function Panel (7) 05/02/2020 Insurance Providers Payer Name Payer Address Payer Phone Subscriber Number Group Number Insured Name Patient Relationship to Insured Coverage Start Date Coverage End Date [facility] [address] [facility] [place] [phone] [facility] [id number] Rhona Gandara Self - patient is the [...]
--- OUTSIDE RECORDS SUMMARY | 2024-12-22 16:24 | XMS_ITS | Clinical Summary ---
Author Organization [facility] Address [address] [place] [address] Phone Care Team Providers Care Puppet Master Name Role Phone Sanjay Carl NP Primary Care Provider [phone] Allergies Active Allergy Reactions Criticality Noted Date [...] EDT - 11/12/2024 12:48 PM EDT Emergency [facility] Emergency [address] [place] [address] Danis Johnson DO Chemical conjunctivitis of both eyes (Primary Dx); Chronic bronchitis, unspecified chronic bronchitis type ([facility] V24, [facility] V28) Discharge Disposition: Home or Self Care from Last 3 Months Surgical History Surgery Date Site/Laterality Comments BLADDER SURGERY PROCEDURE: HISTORICAL BLADDER SURGERY; COMMENT: incontinence OTHER SURGICAL HISTORY 2010 PROCEDURE: NE UNLISTED PROCEDURE LEG/ANKLE; COMMENT: compartmental fasciitis OTHER SURGICAL HISTORY 10/30/10 PROCEDURE: COLONOSCOPY, SURGICAL; COMMENT: [facility] Dr Ortiz ELBOW SURGERY 07/27/13 PROCEDURE: HISTORICAL ELBOW SURGERY; COMMENT: left ulnar nerve COLONOSCOPY 09/01/15 PROCEDURE: HISTORICAL COLONOSCOPY; COMMENT: Dr Coburn, neg biopsies FOOT SURGERY 12/08/15 Right PROCEDURE: HISTORICAL FOOT SURGERY; COMMENT: first metatarsophalangeal joint replacement with hemiphalangectomy FOOT SURGERY 08/30/2016 Left PROCEDURE: HISTORICAL FOOT SURGERY; COMMENT: left 1st metatarsophlangeal joint replacement ESOPHAGOGASTRODUODENOSCOPY 11/15/2016 PROCEDURE: NE ESOPHAGOGASTRODUODENOSCOPY TRANSORAL DIAGNOSTIC; COMMENT: Dr Coburn dilated but met no resistance, normal EGD, Dx is functional dysphagia ESOPHAGOGASTRODUODENOSCOPY 10/23/2018 PROCEDURE: NE ESOPHAGOGASTRODUODENOSCOPY TRANSORAL DIAGNOSTIC; COMMENT: normal by Dr Alpesh Murphy OTHER SURGICAL HISTORY 02/14/2019 Left PROCEDURE: NE OPTX FEM SHFT FX W/INSJ IMED IMPLT W/WO SCREW; COMMENT: Dr Berrios at [facility], spontaneous Fx. Medical History Medical History Date Comments Schizoaffective disorder ( S/HCC V24, [facility] V28) DX:Schizoaffective disorder (HCC); COMMENT: cared at [facility] HTN (hypertension) DX:HTN (hyper tension) [...] SIADH (syndrome of inappropr iate ADH production) ([facility] V24) 09/26/2018 DX:SIADH (syndrome of inappr opriate ADH production) ([facility]); COMMENT: Business Project Analyst is Dr Adam Briceno MD Depression Anxiety COPD (chronic obstructive pu lmonary disease) ([facility] V24, [facility] V28) Overactive bladder Basal cell carcinoma Family [...] care for your loved ones. For example, childhood teacher or elderly care for an older [...] with COPD. No change since 09/01/2024. Code 70828 -------- FINAL REPORT -------- Dictated By: Demetrio Krishnan Dictated Date: 11/12/2024 09:24 ET Assigned Physician: Demetrio Krishnan Reviewed and Electronically Signed By: Demetrio Krishnan Signed Date: 11/12/2024 09:25 ET Workstation ID: [id number] Transcribed By: Self Edit Transcribed Date: 11/12/2024 [...] consistent with COPD. Nochange since 09/01/2024. Code 29548 -------- FINAL REPORT -------- Dictated By: Demetrio Krishnan Dictated Date: 11/12/2024 09:24 ET Assigned Physician: Demetrio Krishnan Reviewed and Electronically Signed By: Demetrio Krishnan Signed Date: 11/12/2024 09:25 ET Workstation ID: [id number] Transcribed By: Self Edit Transcribed Date: 11/12/2024 09:24 ET us Danis Johnson DO IMG XR PROCEDURES Final Result * CBC auto differential (11/12/2024 8:41 AM EDT) WBC 6.7 4.8 - 10.8 K/mcL LAB HEMETOLOGY METHOD 11/12/2024 9:32 [facility] RBC 4.80 3.80 - 4.80 M/mcL LAB HEMETOLOGY METHOD 11/12/2024 9:32 [facility] Hemoglobin 14.4 11.5 - 16.0 g/dL LAB HEMETOLOGY METHOD 11/12/2024 9:32 AM [facility] Hematocrit 42.7 35.0 - 47.0 % LAB HEMETOLOGY METHOD 11/12/2024 9:32 AM [facility] MCV 89.3 79.0 - 98.0 FL LAB HEMETOLOGY METHOD 11/12/2024 9:32 AM [facility] MCH 30.1 27.0 - 32.0 pcg [...] [facility] Lymphocytes Absolute 1.68 1.00 - 5.00 K/mcL LAB HEMETOLOGY METHOD 11/12/2024 9:32 AM EDT [facility] Monocytes Absolute 0.97 0.20 - 1.00 K/[facility] LAB HEMETOLOGY METHOD 11/12/2024 9:32 AM EDT [facility] Eosinophils Absolute 0.14 0.00 - 0.50 K/[facility] LAB HEMETOLOGY METHOD 11/12/2024 9:32 AM EDT [facility] Basophils Absolute 0.13 0.00 - 0.20 K/[facility] LAB HEMETOLOGY METHOD 11/12/2024 9:32 AM EDT [facility] Immature Granulocytes Absolute 0.03 0.00 - 0.03 K/[facility] LAB HEMETOLOGY METHOD 11/12/2024 9:32 AM EDT [facility] Blood Venous blood specimen / Unknown Venipuncture / Unknown 11/12/2024 8:41 AM EDT 11/12/2024 9:16 AM EDT Danis Johnson DO LAB BLOOD ORDERABLES Final Resu lt Performing Organization Address City/[facility]/ZIP Co de Phone Number [facility] [address] [place] [address], * (ABNORMAL) Ethanol (11/12/2024 8:41 AM EDT) Ethanol Level 36(H) 0 - 10 mg/dL LAB CHEMISTRY METHOD 11/12/2024 9:51 AM EDT [facility] Blood Venous blood specimen / Unknown Venipuncture / Unknown 11/12/2024 8:41 AM EDT 11/12/2024 9:16 AM EDT [facility] BLOOD ORDERABLES Final Resu lt [facility] [address] [place] [address], [place] [phone] * (ABNORMAL) Basic metabolic panel (11/12/2024 8:41 [...] [facility] Blood Venous blood specimen / Unknown Venipuncture / Unknown 11/12/2024 8:41 AM EDT 11/12/2024 9:16 AM EDT us Sallyjerzymarie Johnson DO LAB BLOOD ORDERABLES Final Resu lt [facility] [address] [place] [address], from Last 3 Months Insurance [place]ICA[place] - [place] [facility] MEDICARE Member Subscriber Plan / Payer (Ef fective 2024-Present) Name:Rhona Alcantar Relation to Subscriber:Self Name:Rhona Alcantar Payer ID:[id number] Group ID:[id number] Type:Not on file Address: [address] [place] [phone] Advance Directives * Full Code - Default [...] currently active code status orders. Care Teams Puppet Master Relationship Specialty Start Date End Date Sanjay Carl NP [address] [place] [address] PCP - General Family Medicine 06/30/24
--- OUTSIDE RECORDS SUMMARY | 2024-12-22 16:24 | XMS_ITS | Continuity of Care Document ---
Author Name [facility], [facility] Address [address] [place] [address] Organization Unknown Address [address] [place], [place] [id number] Medications No known medications Problems No known problems
--- OUTSIDE RECORDS SUMMARY | 2024-12-22 16:24 | XMS_ITS | Clinical Summary ---
Author Organization [facility] Address [address] [place] [address] Phone Care Team Providers Care Music Sound Light Technician Name Role Phone Sole Hendricks MD Unavailable [phone] Sanjay Carl DRUG COUNSELOR Primary Care Provider Allergies Active Allergy Reactions [...] 04/16/2019 04/16/2018 OSTEOPOROSIS SCREENING INITIAL (ONE-TIME) 2022 TSH LEVEL 05/21/2024 05/21/2023 INFLUENZA VACCINE (#1) 2024 , 02/09/2022, 02/03/2021, Additional history exists COVID-19 VACCINE ( season) 2024 03/27/2023, 03/01/2022, 11/03/2021, Additional history exists SCREENING FOR DIABETES 05/28/2026 [...] EST) TSH 5.56 0.50 - 5.70 uIU/mL [facility] Blood 05/21/2023 6:26 AM EST 05/21/2023 7:00 AM EST Ernie Gonsales MD LAB BLOOD ORDERABLES Final Re sult [facility] [address] [place] [address] from Last 3 Months or Most Recently Relevant to Health Maintenance Insurance [address] [place], [place] [id number] [place] [address] CARE MEDICARE REPLACEMENT CARE MEDICARE REPLACEMENT [address] [place] [id number] CARE MEDICARE REPLACEMENT CARE MEDICARE REPLACEMENT CARE MEDICARE REPLACEMENT Advance Directives For more information, please contact: [phone] (9AM - 5PM [place], Saturday-Saturday) * Full Code (Latest Code Status on File) Date Activated Date Inactivated Comments 05/16/2023 6:17 PM Question Answer Comments Code Status Confirmed With: Patient Care Teams Music Sound Light Technician Relationship Specialty Start Date End Date Sanjay Carl NP [address] [place] [address] PCP - General Nurse Practitioner 12/19/22 Sole Hendricks MD [facility] [place] [address] Dermatology 12/12/22 Additional Source Comments The information contained in this document represents components of the legal health record. It is not the complete legal health record.[facility]
--- OUTSIDE RECORDS SUMMARY | 2024-12-22 16:24 | XMS_ITS | Clinical Summary ---
Author Organization [facility] Address [address] [facility] [facility] [place] [address] Phone Care Team Providers Care Tube Drawer Name Role Phone Antoinette Zimmer MD Primary [...] Schizoaffective disorder 11/24/202003/2021 Overview (11/24/2020): cared at [facility]/ normal ct brain Tobacco dependence [...] va sopressin secretion 09/26/2018 11/24/2020 Overview (11/24/2020): Water Valve Mechanic is Dr Adam Briceno MD Migraine 04/07/2018 11/24/2020 Normocytic normochromic anemia 11/08/2017 11/24/2020 Dyskinesia of esophagus 11/16/201611/13 Overview (11/24/2020): normal EGD 11/15/[address] Coburn, functional dysphagia Periodic limb movement disorder 11/05/2016 11/24/2020 Malignant basal cell neoplasm of skin 02/22/2016 11/24/2020 Overview (11/24/2020): Face and trunk in past. Gastroesophageal reflux disease 11/08/2015 11/24/2020 Overview (11/24/2020): Pt no showed barium swallow at [facility] 12/02/15 10:30am. Hyperlipidemia 03/23/2015 11/24/2020 Overview [...] (11/24/2020): Per patient viral load undetectable. [facility] gastroenterology 12/27 egd nad-dr escobedo 12/27-colonoscopy [...] Phone Billing Address Personal/Family Self 1955 [address] ([id number]) [place] [address] [place] [address] ([id number]) [place] [address] Care Teams Tube Drawer Relationship Specialty Start Date End Date Antoinette Zimmer MD [address] [place] [address] PCP - General Internal Medicine 11/25/20
--- OUTSIDE RECORDS SUMMARY | 2024-12-22 16:24 | XMS_ITS | Encounter Summary ---
Author Organization [facility] Address [address] [facility] [address] [place] [address] Encounters * CPT with Medical [facility] at [facility] on 2024-12-19 { reasonForRequest : low BP , patientReports : Palpitations, feeling dizzy , denies :[ History of Heart Attack, in the setting of active chest p ain , Active Chest pain, radiates to neck jaw and or arm , Diaphoretic/Sweating& quot;, Describes as crushing , Sudden onset of nausea/Vomiting and shortness of breath. , Shortness of Breath , Unable to speak in full sentences without distress , Chest pain, increased fatigue , CHF history, increased swelling and edema& quot;, Weakness/tachycardia ], chiefComplaints : Low Blood Pressure ,& quot;pmh : COPD/Asthma, Gastroesophageal Reflux Disease (GERD), Hypothyroidism, Hypertension , allergies : Penicillins, Bactrim, Ceclor, Sulfamethoxazole , othe rAllergies :null, painAssessment : , visitOutcome : , additionalComments : 69 y.o female complains of Low Blood Pressure\n\nPatient self-reporting symptoms \nSalonso GALLARDO today for her KAYKAY \n91/60 at doctor's office \nHas had nausea - usually gets with migraines but no migraine today\nNo vomiting today - was vomiting yesterday \n1g Na tabs TID - so BPs have been historically high\nTakes diltiazem daily \nSlightly dizzy, walks with walker at baseline and feels safe doing so \nDenies chest pain, palpitations, new shortness of breath \nDenies recent falls, takes ASA 81mg \nUnable to fulfill visit tonight - patient feels safe and comfortable waiting for visit in AM\nReviewed red flags\n\nI provided information on the mobile health provider response time and advised the patient and/or caregiver to monitor reported signs and symptoms. I discussed the warning signs of when to seek emergency care. } Encountered patient conscious, alert and ambulatory. Patient reports she is requesting to have her blood pressure assessed and is also looking for a prescription for Fioricet from [facility]. Patient reports she went to the emergency room for her low blood pressure on 12/14/24 and was discharged the same evening. Patient additionally reports she was seen by her primary care doctor on 12/17/24 then followed up with [facility] on 12/18/24 for chronic migraines and nausea. Patient reports she is feelingnauseous this morning, but has not taken her prescribed Zofran in anticipation of today???s appointment. Patient denies chest pain, shortness of breath and acute changes in vision. Patient additionall y states that she contacted 911 on 12/18/24, was evaluated by EMS and signed a refusal at the time. Skin is warm, dry and of appropriate color for ethnicity. Head and neck free of trauma and edema.-JVD. Breath sounds present, clear and equal bilaterally. Abdomen is soft, non-tender and non-distended. Extremities are free of trauma and edema. [facility] Contacted: encouraged patient to continue to monitor blood pressure and to take the Zofran as designated by the prescribing physician. Patient was notified that Fioricet was not a medication thatwas allowed under the [facility] and was encouraged to follow-up with the physician that recommended it, in order to obtain a prescription. Patient was urged to monitor herself for wo rsening symptoms, the presence of chest pain, shortness of breath, nausea uncontrolled by prescribed medications and changes in vision; encouraged to seek further medical attention including 911 should said symptoms develop. Patient verbalizes understanding of the plan and states she is comfortableremaining home today. IV_(FLUIDS_AND/OR_MEDICATION), POC_BLOODWORK, ORTHOSTATIC_VITAL_SIGNS, IV_MEDICATION Written by Medical [facility] on 2024-12-19
--- OUTSIDE RECORDS SUMMARY | 2024-12-22 16:24 | XMS_ITS | Encounter Summary ---
Author Organization [facility] Address [address] [place] [address] [place] [address] Phone Care Team Providers Care Milk Of Lime Slaker Name Role Phone Sole Hendricks MD Unavailable [phone] Sanjay Carl MACHINE CUTTER Primary Care Provider [phone] Encounter Details Date Type Department Care Team (Late st Contact Info) Description 02/01/2023 Procedure Pass [place] Admitting Dept - Virtual Department [address] [place] [address] Social History Tobacco Use Types Packs/Day Years [...] on filedocumented in this encounter Care Teams Milk Of Lime Slaker Relationship Specialty Start Date End Date Sanjay Carl, MACHINE CUTTER [address] [place] [address] PCP - General Nurse Practitioner 12/19/22 Sole Hendricks MD [facility] [facility] [place] [address] Dermatology 12/12/22 documented as of this encounter Additional Source Comments The information contained in this document represents components of the legal health record. It is not the complete legal health record.[facility]
--- OUTSIDE RECORDS SUMMARY | 2024-12-22 16:24 | XMS_ITS | Encounter Summary ---
Author Organization [facility] Address [address] [facility] [address] [place] [address] Phone Care Team Providers Care Accounts Payable Processor Name Role Phone Sole Hendricks MD Unavailable [phone] Sanjay Carl NP Primary Care Provider [phone] Encounter Details Date Type Department Care Team (Late st Contact Info) Description 05/17/2023 Procedure Pass [facility] Periop [address] [place] [address] Social History Tobacco Use Types Packs/Day Years [...] on filedocumented in this encounter Care Teams Accounts Payable Processor Relationship Specialty Start Date End Date Sanjay Carl, WEB SYSTEMS DEVELOPER [address] [place] [address] PCP - General Nurse Practitioner 12/19/22 Sole Hendricks MD [address] [place] [address] [place] [address] Dermatology 12/12/22 documented as of this encounter Additional Source Comments The information contained in this document represents components of the legal health record. It is not the complete legal health record.[facility]
== END 2024-12-22 14:28 | disposition home or self-care (01) ==
LOC: HO.HKAS 13:47
PROVIDERS: PCP Nurse Practitioner Family; Visit Provider Internal Medicine Nephrology
DX: I10 Essential (primary) hypertension (principal); E87.1 Hypo-osmolality and hyponatremia
CPT/HCPCS: 99214

== ENCOUNTER → 2024-12-22 13:46 | Outpatient (BNVA) | payer OTHER, SELFPAY | PROVIDERS: PCP Nurse Practitioner Family; Visit Provider Internal Medicine Nephrology | DX: I10 Essential (primary) hypertension (principal); E87.1 Hypo-osmolality and hyponatremia; Z87.891 Personal history of nicotine dependence | CPT/HCPCS: 99212 ==

== ENCOUNTER 2025-01-04 09:21 | Outpatient (AMB) | payer OTHER, SELFPAY ==
[2025-01-04 09:40] VITALS: BP 164/80; PULSE 69; O2SAT 97; BMI 25.6
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
--- OUTSIDE RECORDS SUMMARY | 2025-01-04 10:58 | XMS_ITS | Encounter Summary ---
Author Organization [facility] Address [address] [place] [address] Care Team Providers Care Adult Probation Officer Name Role Phone Nicky Haynes MD Primary Care Provider Ryan Lizama, Pcp Primary Care Provider [facility] Encounter Details Date Type Department Care Team Description 09/25/2018 Manager Women Report Medical Records [address] [place] [id number] Adam Briceno MD Social History Tobacco Use Types Packs/Day Years [...] on filedocumented in this encounter Care Teams Adult Probation Officer Relationship Specialty Start Date End Date Nicky Haynes MD PCP - General Internal Medicine 10/06/15 04/19/20 [facility], Pcp PCP - General Internal Medicine 04/20/20 documented as of this encounter
--- OUTSIDE RECORDS SUMMARY | 2025-01-04 10:59 | XMS_ITS | Encounter Summary ---
Author Organization [facility] Address [address] [place] [address] Care Team Providers Care Nursing Unit Clerk Name Role Phone Nicky Haynes MD Primary Care Provider Ryan Lizama, Pcp Primary Care Provider Sebastian schroeder Encounter Details Date Type Department Care Team Description 03/12/2016 Sixth Grade Teacher Report Medical Records [address] [place] [id number] Ligia Vazquez NP Social History Tobacco Use Types Packs/Day Years Used Date Smoking Tobacco: Every Day Cigarettes 0.3 40 Smokeless Tobacco: Never Comments: Alcohol Use Standard Drinks/Week Comments No 0 (1 standard drink = 0.6 oz pure alcohol) occasional alcohol use, 1 time a month about 1 beer Sex Assigned at Date Recorded Not on file documented as of this encounter Plan of Treatment Not on file documented as of this encounter Visit Diagnoses Not on filedocumented in this encounter Care Teams Nursing Unit Clerk Relationship Specialty Start Date End Date Nicky Haynes MD PCP - General Internal Medicine 10/06/15 04/19/20 [facility], Pcp PCP - General Internal Medicine 04/20/20 documented as of this encounter
--- OUTSIDE RECORDS SUMMARY | 2025-01-04 10:59 | XMS_ITS | Encounter Summary ---
Author Organization [facility] Address [address] [place] [address] Care Team Providers Care Animal Maintenance Supervisor Name Role Phone Nicky Haynes MD Primary Care Provider [facility], Pcp Primary Care Provider Unavailabl e Reason for Visit * Reason Onset Date Comments hospital follow up 09/22/2018 Encounter Details Date Type Department Care Team Description 09/22/2018 Telephone Adult Medicine [facility] [address] [place] [address] Nicky Haynes MD hospital follow up Social History Tobacco Use Types Packs/Day Years [...] encounter Miscellaneous Notes * Telephone Encounter - Emile Galindo M.A. - 09/22/2018 1:23 PM EDT Appointment scheduled for 09.26.18 @ 1:30 with PCP for a [facility] F/U . Date of discharge 09.20.18 Discharge summary needed Thank you * Telephone Encounter - Flako Gould - 09/22/2018 1:00 PM EDT ER follow-up appointment booked NO ANTONIO If ER or UC follow up, can be booked with APC or MD. If hospital admission follow up MUST be booked with a physician Appointment time: na Provider visit is scheduled with: Nicky Haynes Hospital/UC center patient was treated at: [facility] Date of visit: 09/14/18 Was this only an ER/UC visit or was the patient admitted to the hospital? Admitted to hospitalAdmitted to hospital If patient was admitted what was the date of discharge? 09/20/18 Reason/diagnosis for visit or stay: seizures Was visit or stay related to an injury? NO If yes, what was the date of injury (DOI)? N/A If yes, was the injury due to N/A Tests performed: Lab: YES X-ray: YES EKG: YES Other tests. If yes, what?; CT SCAN documented in this encounter Plan of Treatment Not on file documented as of this encounter Visit Diagnoses Not on filedocumented in this encounter Care Teams Animal Maintenance Supervisor Relationship Specialty Start Date End Date Nicky Haynes MD PCP - General Internal Medicine 10/06/15 04/19/20 [facility], Pcp PCP - General Internal Medicine 04/20/20 documented as of this encounter
--- OUTSIDE RECORDS SUMMARY | 2025-01-04 10:59 | XMS_ITS | Encounter Summary ---
Author Organization [facility] Address [address] [place] [address] Care Team Providers Care Train Announcer Name Role Phone Nicky Haynes MD Primary Care Provider Ryan Lizama, Pcp Primary Care Provider Sebastian schroeder Encounter Details Date Type Department Care Team Description 06/13/2018 Fine Arts Chair Report Medical Records [address] [place] [address] Michelle Jalloh PA-C Social History Tobacco Use Types Packs/Day Years Used Date Smoking Tobacco: Every Day Cigarettes 0.1 40 Smokeless Tobacco: Current Comments: Alcohol Use [...] on filedocumented in this encounter Care Teams Train Announcer Relationship Specialty Start Date End Date Nicky Haynes MD PCP - General Internal Medicine 10/06/15 04/19/20 Community, Pcp PCP - General Internal Medicine 04/20/20 documented as of this encounter
--- OUTSIDE RECORDS SUMMARY | 2025-01-04 10:59 | XMS_ITS | Encounter Summary ---
Author Organization [facility] Address [address] [place] [address] Care Team Providers Care Justice Of The Peace Name Role Phone Nicky Haynes MD Primary Care Provider Ryan Lizama, Pcp Primary Care Provider [facility] Encounter Details Date Type Department Care Team Description 09/23/2018 Orders Only Medical Records [address] [place] [address] Abstract, Provider Social History Tobacco Use Types Packs/Day Years [...] on filedocumented in this encounter Care Teams Justice Of The Peace Relationship Specialty Start Date End Date Nicky Haynes MD PCP - General Internal Medicine 10/06/15 04/19/20 Community, Pcp PCP - General Internal Medicine 04/20/20 documented as of this encounter
--- OUTSIDE RECORDS SUMMARY | 2025-01-04 10:59 | XMS_ITS | Encounter Summary ---
Author Organization [facility] Address [address] [place] [address] Care Team Providers Care Specialist Icu Name Role Phone Nicky Haynes MD Primary Care Provider Ryan Lizama, Pcp Primary Care Provider Sebastian schroeder Encounter Details Date Type Department Care Team Description 09/15/2018 Hospital Medical Records [address] [place] [address] Social History Tobacco Use Types Packs/Day Years Used Date Smoking Tobacco: Every Day Cigarettes 1 40 Smokeless Tobacco: Current Comments:smokes 1 ppd Alcohol Use Standard Drinks/Week Comments No 0 (1 standard drink = 0.6 oz pure alcohol) occasional alcohol use, 1 time a month about 1 beer Sex Assigned at Date Recorded Not on file documented as of this encounter Plan of Treatment Not on file documented as of this encounter Visit Diagnoses Not on filedocumented in this encounter Care Teams Specialist Icu Relationship Specialty Start Date End Date Nicky Haynes MD PCP - General Internal Medicine 10/06/15 04/19/20 Community, Pcp PCP - General Internal Medicine 04/20/20 documented as of this encounter
--- OUTSIDE RECORDS SUMMARY | 2025-01-04 10:59 | XMS_ITS | Encounter Summary ---
Author Organization [facility] Address [address] [place] [address] Care Team Providers Care Senior Applications Engineer Name Role Phone Nicky Haynes MD Primary Care Provider Ryan Lizama, Pcp Primary Care Provider Sebastian schroeder Encounter Details Date Type Department Care Team Description 05/24/2016 Business Office Representative Report Medical Records [address] [place] [address] Social History Tobacco Use Types Packs/Day Years [...] on filedocumented in this encounter Care Teams Senior Applications Engineer Relationship Specialty Start Date End Date Nicky Haynes MD PCP - General Internal Medicine 10/06/15 04/19/20 Community, Pcp PCP - General Internal Medicine 04/20/20 documented as of this encounter
--- OUTSIDE RECORDS SUMMARY | 2025-01-04 10:59 | XMS_ITS | Encounter Summary ---
Author Organization [facility] Address [address] [place] [address] Care Team Providers Care High Rigger Name Role Phone Nicky Haynes MD Primary Care Provider Ryan Lizama, Pcp Primary Care Provider Sebastian schroeder Encounter Details Date Type Department Care Team Description 08/17/2018 Hospital Medical Records [address] [place] [address] Jony Haines Social History Tobacco Use Types Packs/Day Years [...] on filedocumented in this encounter Care Teams High Rigger Relationship Specialty Start Date End Date Nicky Haynes MD PCP - General Internal Medicine 10/06/15 04/19/20 Community, Pcp PCP - General Internal Medicine 04/20/20 documented as of this encounter
--- OUTSIDE RECORDS SUMMARY | 2025-01-04 10:59 | XMS_ITS | Encounter Summary ---
Author Organization [facility] Address [address] [place] [address] Care Team Providers Care Computer Systems Manager Name Role Phone Nicky Haynes MD Primary Care Provider Ryan Lizama, Pcp Primary Care Provider Sebastian schroeder Encounter Details Date Type Department Care Team Description 09/16/2018 [facility] Medical Records [address] [place] [address] Social History Tobacco Use Types Packs/Day Years [...] on filedocumented in this encounter Care Teams Computer Systems Manager Relationship Specialty Start Date End Date Nicky Haynes MD PCP - General Internal Medicine 10/06/15 04/19/20 Community, Pcp PCP - General Internal Medicine 04/20/20 documented as of this encounter
--- OUTSIDE RECORDS SUMMARY | 2025-01-04 10:59 | XMS_ITS | Encounter Summary ---
Author Organization [facility] Address [address] [place] [address] Care Team Providers Care Nail Welter Name Role Phone Nicky Haynes MD Primary Care Provider Ryan Lizama, Pcp Primary Care Provider Sebastian e Encounter Details Date Type Department Care Team Description 05/23/2018 Release of Information Medical Records [address] [place] [address] Abstract, Provider Social History Tobacco Use Types [...] on filedocumented in this encounter Care Teams Nail Welter Relationship Specialty Start Date End Date Nicky Haynes MD PCP - General Internal Medicine 10/06/15 04/19/20 Community, Pcp PCP - General Internal Medicine 04/20/20 documented as of this encounter
--- OUTSIDE RECORDS SUMMARY | 2025-01-04 10:59 | XMS_ITS | Encounter Summary ---
Author Organization [facility] Address [address] [place] [address] Care Team Providers Care Strand Galvanizer Name Role Phone Nicky Haynes MD Primary Care Provider Ryan Lizama, Pcp Primary Care Provider [facility] Encounter Details Date Type Department Care Team Description 04/13/2018 Professor Of Political Science Report Medical Records [address] [place] [address] Annelise Dockery MD Social History Tobacco Use Types Packs/Day [...] on filedocumented in this encounter Care Teams Strand Galvanizer Relationship Specialty Start Date End Date Nicky Haynes MD PCP - General Internal Medicine 10/06/15 04/19/20 Community, Pcp PCP - General Internal Medicine 04/20/20 documented as of this encounter
--- OUTSIDE RECORDS SUMMARY | 2025-01-04 10:59 | XMS_ITS | Clinical Summary ---
Author Organization [facility] Address [address] [place] [phone] Phone Care Team Providers Care Litigation Secretary Name Role Phone Sanjay Carl NP Primary Care Provider [phone] Allergies Active Allergy Reactions Criticality Noted Date [...] Encounters Date Type Department Care Team Description 12/24/2024 7:40 PM EDT - 12/25/2024 1:05 AM EDT Emergency [facility] Emergency [address] [place] [address] Dejon Presley MD Other migraine without status migrainosus, not intractable (Primary Dx) Discharge Disposition: Home or Self Care 11/12/2024 7:27 AM EDT - 11/12/2024 12:48 PM EDT Emergency [facility] Emergency [address] [place] [id number] Danis Johnson DO Chemical conjunctivitis of both eyes (Primary Dx); Chronic bronchitis, unspecified chronic bronchitis type (CMS/[facility] V24, [facility] V28) Discharge Disposition: Home or Self Care from Last 3 Months Surgical History Surgery Date Site/Laterality Comments BLADDER SURGERY PROCEDURE: HISTORICAL BLADDER SURGERY; COMMENT: incontinence OTHER SURGICAL HISTORY 2010 PROCEDURE: [place] UNLISTED PROCEDURE LEG/ANKLE; COMMENT: compartmental fasciitis OTHER SURGICAL HISTORY 10/30/10 PROCEDURE: COLONOSCOPY, SURGICAL; COMMENT: [facility] Dr Ortiz ELBOW SURGERY 07/27/13 PROCEDURE: HISTORICAL ELBOW SURGERY; COMMENT: left ulnar nerve COLONOSCOPY 09/01/15 PROCEDURE: HISTORICAL COLONOSCOPY; COMMENT: Dr Coburn, neg biopsies FOOT SURGERY 12/08/15 Right PROCEDURE: HISTORICAL FOOT SURGERY; COMMENT: first metatarsophalangeal joint replacement with hemiphalangectomy FOOT SURGERY 08/30/2016 Left PROCEDURE: HISTORICAL FOOT SURGERY; COMMENT: left 1st metatarsophlangeal joint replacement ESOPHAGOGASTRODUODENOSCOPY 11/15/2016 PROCEDURE: [place] ESOPHAGOGASTRODUODENOSCOPY TRANSORAL DIAGNOSTIC; COMMENT: Dr Coburn dilated but met no resistance, normal EGD, Dx is functional dysphagia ESOPHAGOGASTRODUODENOSCOPY 10/23/2018 PROCEDURE: [place] ESOPHAGOGASTRODUODENOSCOPY TRANSORAL DIAGNOSTIC; COMMENT: normal by Dr Alpesh Murphy OTHER SURGICAL HISTORY 02/14/2019 Left PROCEDURE: [place] OPTX FEM SHFT FX W/INSJ IMED IMPLT W/WO SCREW; COMMENT: Dr Berrios [place] [facility], spontaneous Fx. 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 For example, director child or elderly care for an older adult? [...] Sign Reading Time Taken Comments Blood Pressure 172/89 12/24/2024 9:43 PM EDT Pulse 60 12/24/2024 9:43 PM EDT Temperature 36.6 C (97.9 F) 12/24/2024 4:43 PM EDT Respiratory Rate 20 12/24/2024 4:43 PM EDT Oxygen Saturation 94% 12/24/2024 9:43 PM EDT Inhaled Oxygen Concentration - - Weight 72.6 kg (160 lb) 12/24/2024 4:43 PM EDT Height 160 cm (5' 3 ) 12/24/2024 4:43 PM EDT Body Mass Index 28.34 12/24/2024 4:43 PM EDT Plan of Treatment Health Maintenance [...] with COPD. No change since 09/01/2024. Code 97799 -------- FINAL REPORT -------- Dictated By: Demetrio Krishnan Dictated Date: 11/12/2024 09:24 ET Assigned Physician: Demetrio Krishnan Reviewed and Electronically Signed By: Demetrio Krishnan Signed Date: 11/12/2024 09:25 ET Workstation ID: [id number] Transcribed By: Self Edit Transcribed Date: 11/12/2024 [...] consistent with COPD. Nochange since 09/01/2024. Code 28960 -------- FINAL REPORT -------- Dictated By: Demetrio Krishnan Dictated Date: 11/12/2024 09:24 ET Assigned Physician: Demetrio Krishnan Reviewed and Electronically Signed By: Demetrio Krishnan Signed Date: 11/12/2024 09:25 ET Workstation ID: [id number] Transcribed By: Self Edit Transcribed Date: 11/12/2024 09:24 ET us Danis Johnson DO IMG XR PROCEDURES Final Result * CBC auto differential (11/12/2024 8:41 AM EDT) WBC 6.7 4.8 - 10.8 K/mcL LAB HEMETOLOGY METHOD 11/12/2024 9:32 AM EDT [facility] RBC 4.80 3.80 - 4.80 M/mcL LAB HEMETOLOGY METHOD 11/12/2024 9:32 AM EDT [facility] Hemoglobin 14.4 11.5 - 16.0 g/dL LAB HEMETOLOGY METHOD 11/12/2024 9:32 AM EDT [facility] Hematocrit 42.7 35.0 - 47.0 % LAB HEMETOLOGY METHOD 11/12/2024 9:32 AM EDT [facility] MCV 89.3 79.0 - 98.0 FL LAB HEMETOLOGY METHOD 11/12/2024 9:32 AM [facility] MCH 30.1 27.0 - 32.0 pcg LAB HEMETOLOGY METHOD 11/12/2024 9:32 AM [facility] MCHC 33.7 32.0 - 37.0 g/dL LAB HEMETOLOGY METHOD 11/12/2024 9:32 AM [facility] RDW 13.6 11.0 - 15.0 % LAB HEMETOLOGY METHOD 11/12/2024 9:32 AM [facility] Platelets 359 130 - 400 K/mcL LAB HEMETOLOGY METHOD 11/12/2024 9:32 AM [facility] MPV 8.6 7.0 - 11.0 FL LAB HEMETOLOGY METHOD 11/12/2024 9:32 AM [facility] NRBC 0.0 <1.0 % LAB HEMETOLOGY METHOD 11/12/2024 9:32 AM [facility] NRBC Absolute 0.00 <0.10 K/mcL LAB HEMETOLOGY METHOD 11/12/2024 9:32 AM [facility] Neutrophils Relative 56.0 % LAB HEMETOLOGY METHOD 11/12/2024 9:32 AM [facility] Lymphocytes Relative 25.1 % LAB HEMETOLOGY METHOD 11/12/2024 9:32 AM [facility] Monocytes Relative 14.5 % LAB HEMETOLOGY METHOD 11/12/2024 9:32 AM [facility] Eosinophils Relative 2.1 % LAB HEMETOLOGY METHOD 11/12/2024 9:32 AM [facility] Basophils Relative 1.9 % LAB HEMETOLOGY METHOD 11/12/2024 9:32 AM [facility] Immature Granulocytes Relative 0.4 % LAB HEMETOLOGY METHOD 11/12/2024 9:32 AM EDT [facility] Neutrophils Absolute 3.73 1.50 - 7.00 K/[facility] LAB HEMETOLOGY METHOD 11/12/2024 9:32 AM EDT [facility] Lymphocytes Absolute 1.68 1.00 - 5.00 K/mcL LAB HEMETOLOGY METHOD 11/12/2024 9:32 AM EDT [facility] Monocytes Absolute 0.97 0.20 - 1.00 [facility] LAB HEMETOLOGY METHOD 11/12/2024 9:32 AM EDT [facility] Eosinophils Absolute 0.14 0.00 - 0.50 [facility] LAB HEMETOLOGY METHOD 11/12/2024 9:32 AM EDT [facility] Basophils Absolute 0.13 0.00 - 0.20 K/mcL LAB HEMETOLOGY METHOD 11/12/2024 9:32 AM EDT [facility] Immature Granulocytes Absolute 0.03 0.00 - 0.03 [facility] LAB HEMETOLOGY METHOD 11/12/2024 9:32 AM EDT [facility] Blood Venous blood specimen / Unknown Venipuncture / Unknown 11/12/2024 8:41 AM EDT 11/12/2024 9:16 AM EDT us Danis Johnson DO LAB BLOOD ORDERABLES Final Resu lt [facility] [address] [place] [address], * (ABNORMAL) Ethanol (11/12/2024 8:41 AM EDT) Ethanol Level 36(H) 0 - 10 mg/dL LAB CHEMISTRY METHOD 11/12/2024 9:51 AM EDT [facility] Blood Venous blood specimen / Unknown Venipuncture / Unknown 11/12/2024 8:41 AM EDT 11/12/2024 9:16 AM EDT us Danis Johnson LAB BLOOD ORDERABLES Final Resu lt [facility] [address] [place] [address], * (ABNORMAL) Basic metabolic panel (11/12/2024 8:41 AM EDT) Sodium 138 133 - 145 mmol/L LAB CHEMISTRY METHOD 11/12/2024 9:51 AM [facility] Potassium 4.0 3.5 - 5.5 mmol/L LAB CHEMISTRY METHOD 11/12/2024 9:51 AM [facility] Comment:Hemolysis present Chloride 105 96 - 110 mmol/L LAB CHEMISTRY METHOD 11/12/2024 9:51 AM [facility] CO2 25 21 - 32 mmol/L LAB CHEMISTRY METHOD 11/12/2024 9:51 AM [facility] Anion Gap 8 3 - 11 LAB CHEMISTRY METHOD 11/12/2024 9:51 AM [facility] Glucose 61(L) 70 - 100 mg/dL LAB CHEMISTRY METHOD 11/12/2024 9:51 AM [facility] BUN 7 5 - 25 mg/dL LAB CHEMISTRY METHOD 11/12/2024 9:51 AM [facility] Creatinine 0.81 0.50 - 1.10 mg/dL LAB CHEMISTRY METHOD 11/12/2024 9:51 AM [facility] eGFR 80 >=60 mL/min/1. 73m2 LAB CHEMISTRY METHOD 11/12/2024 9:51 AM [facility] Comment:Calculation based on the Chronic Kidney Disease Epidemiology Collaboration (CKD-EPI) equation refit without adjustment for race. BUN/Creatinine Ratio 8.6 LAB CHEMISTRY METHOD 11/12/2024 9:51 AM EDT [facility] Calcium 9.7 8.5 - 10.5 mg/dL LAB CHEMISTRY METHOD 11/12/2024 9:51 AM EDT [facility] Blood Venous blood specimen / Unknown Venipuncture / Unknown 11/12/2024 8:41 AM EDT 11/12/2024 9:16 AM EDT us Danis Johnson DO LAB BLOOD ORDERABLES Final Resu lt [facility] [address] [place] [address], from Last 3 Months Insurance MEDICAID - [place] [employer] MEDICARE Member Subscriber Plan / Payer (Ef fective 2024-Present) Name:Rhona Alcantar Relation to Subscriber:Self Name:Rhona Alcantar Payer ID:[id number] Group ID:[id number] Type:Not on file Address: [address] [place] [phone] Advance Directives * Full Code - Default [...] currently active code status orders. Care Teams Litigation Secretary Relationship Specialty Start Date End Date Sanjay Carl NP [address] [place] [address] PCP - General Family Medicine 06/30/24
--- OUTSIDE RECORDS SUMMARY | 2025-01-04 10:59 | XMS_ITS | Clinical Summary ---
Author Organization [facility] Address [address] [facility] [address] [place] [address] Phone Care Team Providers Care Human Resource Internship Name Role Phone Antoinette Zimmer MD Primary [...] Schizoaffective disorder 11/24/202003/2021 Overview (11/24/2020): cared at [facility]/ normal ct brain Tobacco dependence syndrome 11/24/2020 [...] va sopressin secretion 09/26/2018 11/24/2020 Overview (11/24/2020): [employer] is Dr Adam Briceno MD Migraine 04/07/2018 11/24/2020 Normocytic normochromic anemia 11/08/2017 11/24/2020 Dyskinesia of esophagus 11/16/201611/13 Overview (11/24/2020): normal EGD 11/15/[address] Coburn, functional dysphagia Periodic limb movement disorder 11/05/2016 11/24/2020 Malignant basal cell neoplasm of skin 02/22/2016 11/24/2020 Overview (11/24/2020): Face and trunk in past. Gastroesophageal reflux disease 11/08/2015 11/24/2020 Overview (11/24/2020): Pt no showed barium swallow at [facility] 12/02/15 10:30am. Hyperlipidemia 03/23/2015 11/24/2020 Overview [...] Overview (11/24/2020): Per patient viral load undetectable. [facility] gastroenterology 12/27 egd nad-dr escobedo 12/27-colonoscopy [...] Phone Billing Address Personal/Family Self 1955 [address] ([id number]) [place] [phone] [place] [address] ([id number]) [place] [phone] Care Teams Human Resource Internship Relationship Specialty Start Date End Date Antoinette Zimmer MD [address] [place] [address] PCP - General Internal Medicine 11/25/20
--- OUTSIDE RECORDS SUMMARY | 2025-01-04 10:59 | XMS_ITS | Encounter Summary ---
Author Organization [facility] Address [address] [place] [address] Care Team Providers Care Wire Cutter Name Role Phone Nicky Haynes MD Primary Care Provider [facility], Pcp Primary Care Provider Unavailabl e Reason for Visit * Reason Onset Date Comments Call From Pharmacy 06/12/2018 Encounter Details Date Type Department Care Team Description 06/12/2018 Telephone Adult Medicine [facility] [address] [place] [address] Nicky Haynes MD Call From Pharmacy Social History Tobacco Use Types Packs/Day Years [...] encounter Miscellaneous Notes * Telephone Encounter - Corinna Spring M.A. - 06/12/2018 1:18 PM EST Please set up refills and add pharmacy. * Telephone Encounter - Shima Shashi - 06/12/2018 12:33 PM EST Caller requesting call back from provider: Is the caller the patient? NO If caller is not the patient, what is the callers name? Memo Callers relationship to patient? N/A If person calling is not the patient themselves, is there a verbal release in FYI or permanent comments for this person: NO Reason for call back: Pharmacy would like the pt current med list faxed and refill sent to have allmeds pre-packed and sent to pt [phone] Caller offered to speak with the nurse for assistance: YES Response: Patient offered to speak with nurse for assistance and patient agreed. Message forwarded to nurse. documented in this encounter Plan of Treatment Not on file documented as of this encounter Visit Diagnoses Not on filedocumented in this encounter Care Teams Wire Cutter Relationship Specialty Start Date End Date Nicky Haynes MD PCP - General Internal Medicine 10/06/15 04/19/20 [facility], Pcp PCP - General Internal Medicine 04/20/20 documented as of this encounter
--- OUTSIDE RECORDS SUMMARY | 2025-01-04 10:59 | XMS_ITS | Encounter Summary ---
Author Organization [facility] Address [address] [place] [address] Care Team Providers Care Plate Slitter And Inspector Name Role Phone Nicky Haynes MD Primary Care Provider Ryan Lizama, Pcp Primary Care Provider Sebastian schroeder Encounter Details Date Type Department Care Team Description 08/16/2018 [facility] Medical Records [address] [place] [address] Social History Tobacco Use Types Packs/Day Years [...] on filedocumented in this encounter Care Teams Plate Slitter And Inspector Relationship Specialty Start Date End Date Nicky Haynes MD PCP - General Internal Medicine 10/06/15 04/19/20 [facility], Pcp PCP - General Internal Medicine 04/20/20 documented as of this encounter
--- OUTSIDE RECORDS SUMMARY | 2025-01-04 10:59 | XMS_ITS | Encounter Summary ---
Author Organization [facility] Address [address] [place] [address] Care Team Providers Care B2B Sales Executive Name Role Phone Nicky Haynes MD Primary Care Provider Ryan Lizama, Pcp Primary Care Provider Sebastian schroeder Encounter Details Date Type Department Care Team Description 04/12/2016 Cable Lacer Report Medical Records [address] [place] [address] Ligia Vazquez NP Social History Tobacco Use [...] on filedocumented in this encounter Care Teams B2B Sales Executive Relationship Specialty Start Date End Date Nicky Haynes MD PCP - General Internal Medicine 10/06/15 04/19/20 [facility], Pcp PCP - General Internal Medicine 04/20/20 documented as of this encounter
--- OUTSIDE RECORDS SUMMARY | 2025-01-04 10:59 | XMS_ITS | Encounter Summary ---
Author Organization [facility] Address [address] [place] [address] Care Team Providers Care Delivery Of Shopping News Name Role Phone [facility], Pcp Primary Care Provider Unavailabl e Encounter Details Date Type Department Care Team Description 05/05/2020 Orders Only Adult Medicine [address] [address] Fermin Dominguez MD [address] [place] [address] Screening for malignant neoplasm of breast Social History Tobacco Use Types Packs/Day Years [...] on file documented as of this encounter Procedures Procedure Name Priority Date/Time Associated Diagnosis Comments SCR MAMMO BI INCL CAD Routine 09/28/2019 Screening for malignant neoplasm of breast documented in this encounter Results * SCR MAMMO BI INCL CAD (09/28/2019) Fermin Dominguez MD MAMMOGRAPHY documented in this encounter Visit Diagnoses Diagnosis Screening for malignant neoplasm of breast Breast screening, unspecified documented in this encounter Care Teams Delivery Of Shopping News Relationship Specialty Start Date End Date Community, Pcp PCP - General Internal Medicine 04/20/20 documented as of this encounter
--- OUTSIDE RECORDS SUMMARY | 2025-01-04 10:59 | XMS_ITS | Encounter Summary ---
Author Organization [facility] Address [address] [place] [address] Care Team Providers Care Transportation Supervisor Name Role Phone Nicky Haynes MD Primary Care Provider Ryan Lizama, Pcp Primary Care Provider Sebastian e Encounter Details Date Type Department Care Team Description 04/25/2016 Release of Information Medical Records [address] [place] [address] Abstract, Provider Social History Tobacco Use Types [...] on filedocumented in this encounter Care Teams Transportation Supervisor Relationship Specialty Start Date End Date Nicky Haynes MD PCP - General Internal Medicine 10/06/15 04/19/20 Community, Pcp PCP - General Internal Medicine 04/20/20 documented as of this encounter
--- OUTSIDE RECORDS SUMMARY | 2025-01-04 11:00 | XMS_ITS | Encounter Summary ---
Author Organization [facility] Address [address] [place] [address] Care Team Providers Care Explosive Ordnance Handler Name Role Phone Luis Oseguera MD Primary Care Provider Unavail able Natalie Khanna MD Primary Care Provider Nicky Joshi MD Primary Care Provider Unav ailable [facility], Pcp Primary Care Provider Unavailmercedes e Encounter Details Date Type Department Care Team Description 06/30/2014 Release of Information Medical Records [address] [place] [id number] Abstract, Provider Social History Tobacco Use Types [...] on filedocumented in this encounter Care Teams Explosive Ordnance Handler Relationship Specialty Start Date End Date Luis Oseguera MD PCP - General Internal Medicine 03/20/13 11/30/14 Natalie Khanna MD PCP - General Internal Medicine 12/01/14 10/05/15 Nicky Haynes MD PCP - General Internal Medicine 10/06/15 04/19/20 [facility], Pcp PCP - General Internal Medicine 04/20/20 documented as of this encounter
--- OUTSIDE RECORDS SUMMARY | 2025-01-04 11:00 | XMS_ITS | Encounter Summary ---
Author Organization [facility] Address [address] [place] [address] Care Team Providers Care Irrigation System Installer Name Role Phone Luis Oseguera MD Primary Care Provider Unavail able Natalie Khanna MD Primary Care Provider Nicky Joshi MD Primary Care Provider Unav ailable [facility], Pcp Primary Care Provider Unavailmercedes e Encounter Details Date Type Department Care Team Description 04/20/2014 Lion Trainer Report Medical Records [address] [place] [address] Kaleb Machuca Social History Tobacco Use Types Packs/Day Years [...] on filedocumented in this encounter Care Teams Irrigation System Installer Relationship Specialty Start Date End Date Luis Oseguera MD PCP - General Internal Medicine 03/20/13 11/30/14 Natalie Khanna MD PCP - General Internal Medicine 12/01/14 10/05/15 Nicky Haynes MD PCP - General Internal Medicine 10/06/15 04/19/20 [facility], Pcp PCP - General Internal Medicine 04/20/20 documented as of this encounter
--- OUTSIDE RECORDS SUMMARY | 2025-01-04 11:00 | XMS_ITS | Encounter Summary ---
Author Organization [facility] Address [address] [place] [address] Care Team Providers Care Environmental Compliance Technician Name Role Phone Luis Oseguera MD Primary Care Provider Unavail able Natalie Khanna MD Primary Care Provider Nicky Joshi MD Primary Care Provider Unav ailable [facility], Pcp Primary Care Provider Unavailmercedes e Encounter Details Date Type Department Care Team Description 02/04/2014 Electroplating Worker Report Medical Records [address] [place] [address] Ligia Vazquez NP Social History Tobacco Use [...] on filedocumented in this encounter Care Teams Environmental Compliance Technician Relationship Specialty Start Date End Date Luis Oseguera MD PCP - General Internal Medicine 03/20/13 11/30/14 Natalie Khanna MD PCP - General Internal Medicine 12/01/14 10/05/15 Nicky Haynes MD PCP - General Internal Medicine 10/06/15 04/19/20 [facility], Pcp PCP - General Internal Medicine 04/20/20 documented as of this encounter
--- OUTSIDE RECORDS SUMMARY | 2025-01-04 11:00 | XMS_ITS | Encounter Summary ---
Author Organization [facility] Address [address] [place] [address] Care Team Providers Care Manuscript Reader Name Role Phone Luis Oseguera MD Primary Care Provider Unavail able Natalie Khanna MD Primary Care Provider Nicky Joshi MD Primary Care Provider Unav ailable [facility], Pcp Primary Care Provider Unavailmercedes e Encounter Details Date Type Department Care Team Description 04/09/2014 JAVA WEB DEVELOPER/MassPat Report Medical Records [address] [place] [address] Abstract, Provider Social History Tobacco Use Types [...] on filedocumented in this encounter Care Teams Manuscript Reader Relationship Specialty Start Date End Date Luis Oseguera MD PCP - General Internal Medicine 03/20/13 11/30/14 Natalie Khanna MD PCP - General Internal Medicine 12/01/14 10/05/15 Nicky Haynes MD PCP - General Internal Medicine 10/06/15 04/19/20 [facility], Pcp PCP - General Internal Medicine 04/20/20 documented as of this encounter
--- OUTSIDE RECORDS SUMMARY | 2025-01-04 11:00 | XMS_ITS | Patient Health Record ---
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
--- OUTSIDE RECORDS SUMMARY | 2025-01-04 11:00 | XMS_ITS | Encounter Summary ---
Author Organization [facility] Address [address] [place] [address] Care Team Providers Care Religious Ritual Slaughterer Name Role Phone Luis Oseguera MD Primary Care Provider Unavail able Natalie Khanna MD Primary Care Provider Nicky Joshi MD Primary Care Provider Unav ailable [facility], Pcp Primary Care Provider Unavailmercedes e Encounter Details Date Type Department Care Team Description 04/01/2014 Senior Data Developer Report Medical Records [address] [place] [address] Ligia Vazquez NP Social History Tobacco Use [...] on filedocumented in this encounter Care Teams Religious Ritual Slaughterer Relationship Specialty Start Date End Date Luis Oseguera MD PCP - General Internal Medicine 03/20/13 11/30/14 Natalie Khanna MD PCP - General Internal Medicine 12/01/14 10/05/15 Nicky Haynes MD PCP - General Internal Medicine 10/06/15 04/19/20 [facility], Pcp PCP - General Internal Medicine 04/20/20 documented as of this encounter
--- OUTSIDE RECORDS SUMMARY | 2025-01-04 11:00 | XMS_ITS | Encounter Summary ---
Author Organization [facility] Address [address] [place] [address] Care Team Providers Care Mud Logger Name Role Phone Luis Oseguera MD Primary Care Provider Unavail able Natalie Khanna MD Primary Care Provider Nicky Joshi MD Primary Care Provider Unav ailable [facility], Pcp Primary Care Provider Unavailmercedes e Encounter Details Date Type Department Care Team Description 12/03/2013 Continuing Education Instructor Report Medical Records [address] [place] [address] Flaco Houser Social History Tobacco Use Types Packs/Day Years [...] on filedocumented in this encounter Care Teams Mud Logger Relationship Specialty Start Date End Date Luis Oseguera MD PCP - General Internal Medicine 03/20/13 11/30/14 Natalie Khanna MD PCP - General Internal Medicine 12/01/14 10/05/15 Nicky Haynes MD PCP - General Internal Medicine 10/06/15 04/19/20 [facility], Pcp PCP - General Internal Medicine 04/20/20 documented as of this encounter
--- OUTSIDE RECORDS SUMMARY | 2025-01-04 11:00 | XMS_ITS | Encounter Summary ---
Author Organization [facility] Address [address] [place] [address] Care Team Providers Care Parking Enforcer Name Role Phone Luis Oseguera MD Primary Care Provider Unavail able Natalie Khanna MD Primary Care Provider Nicky Joshi MD Primary Care Provider Unav ailable [facility], Pcp Primary Care Provider Unavailmercedes e Encounter Details Date Type Department Care Team Description 12/29/2013 Director Of Promotions Report Medical Records [address] [place] [id number] Adam Briceno MD Social History Tobacco Use [...] on filedocumented in this encounter Care Teams Parking Enforcer Relationship Specialty Start Date End Date Luis Oseguera MD PCP - General Internal Medicine 03/20/13 11/30/14 Natalie Khanna MD PCP - General Internal Medicine 12/01/14 10/05/15 Nicky Haynes MD PCP - General Internal Medicine 10/06/15 04/19/20 [facility], Pcp PCP - General Internal Medicine 04/20/20 documented as of this encounter
--- OUTSIDE RECORDS SUMMARY | 2025-01-04 11:00 | XMS_ITS | Encounter Summary ---
Author Organization [facility] Address [address] [place] [address] Care Team Providers Care Outside Sales Consultant Name Role Phone Luis Oseguera MD Primary Care Provider Unavail able Natalie Khanna MD Primary Care Provider Nicky Joshi MD [facility] Primary Care Provider Unavailabl e Reason for Visit * Reason Onset Date Comments Salvager Helper Feedback 06/23/2014 Encounter Details Date Type Department Care Team Description 06/23/2014 Telephone Adult Medicine - [place] [address] [place] [address] Luis Oseguera MD Salvager Helper Feedback Social History Tobacco Use Types Packs/Day Years [...] encounter Miscellaneous Notes * Telephone Encounter - Inocencia Mendoza - 06/23/2014 11:37 AM EDT TRAVIS sent out again. * Telephone Encounter - Yanira Cole - 06/23/2014 10:53 AM EDT Caller requesting call back from provider: Is the caller the patient? YES If caller is not the patient, what is the callers name? N/A Callers relationship to patient? N/A If person calling is not the patient themselves, is there a verbal release in FYI or permanent comments for this person: NO Reason for call back: Patient has lost the paper work for her neurology referral. Patient would like to know if we could please resend this to her, so she can complete the paper work and get this back to us. Caller offered to speak with the nurse for assistance: YES Response: Patient offered to speak with nurse for assistance and patient agreed. Message forwarded to nurse. documented in this encounter Plan of Treatment Not on file documented as of this encounter Visit Diagnoses Not on filedocumented in this encounter Care Teams Outside Sales Consultant Relationship Specialty Start Date End Date Luis Oseguera MD PCP - General Internal Medicine 03/20/13 11/30/14 Natalie Khanna MD PCP - General Internal Medicine 12/01/14 10/05/15 Nicky Haynes MD PCP - General Internal Medicine 10/06/15 04/19/20 [facility], Pcp PCP - General Internal Medicine 04/20/20 documented as of this encounter
--- OUTSIDE RECORDS SUMMARY | 2025-01-04 11:01 | XMS_ITS | Encounter Summary ---
Author Organization [facility] Address [address] [place] [address] Care Team Providers Care Apprentice Photographer Name Role Phone Nicky Haynes MD Primary Care Provider Ryan Lizama, Pcp Primary Care Provider [facility] e Encounter Details Date Type Department Care Team Description 09/29/2018 Hazardous Substances Engineer Report Medical Records [address] [place] [address] Ihsan Morgan MD Social History Tobacco Use Types Packs/Day [...] on filedocumented in this encounter Care Teams Apprentice Photographer Relationship Specialty Start Date End Date Nicky Haynes MD PCP - General Internal Medicine 10/06/15 04/19/20 [facility], Pcp PCP - General Internal Medicine 04/20/20 documented as of this encounter
--- OUTSIDE RECORDS SUMMARY | 2025-01-04 11:01 | XMS_ITS | Encounter Summary ---
Author Organization [facility] Address [address] [place] [address] Care Team Providers Care Paper And Pulp Mill Operator Name Role Phone Luis Oseguera MD Primary Care Provider Unavail able Natalie Khanna MD Primary Care Provider Nicky Joshi MD Primary Care Provider Unav ailable [facility], Pcp Primary Care Provider Unavailmercedes schroeder Encounter Details Date Type Department Care Team Description 08/21/2013 Lacrosse Player Report Medical Records [address] [place] [address] Social History Tobacco Use Types Packs/Day Years Used Date Smoking Tobacco: Every Day Cigarettes 1 40 Alcohol Use Standard Drinks/Week Comments No 0 (1 standard drink = 0.6 oz pure alcohol) last drink 3 yrs ago, used to be heavy, no program. Sex Assigned at Date Recorded Not on file documented as of this encounter Plan of Treatment Not on file documented as of this encounter Visit Diagnoses Not on filedocumented in this encounter Care Teams Paper And Pulp Mill Operator Relationship Specialty Start Date End Date Luis Oseguera MD PCP - General Internal Medicine 03/20/13 11/30/14 Natalie Khanna MD PCP - General Internal Medicine 12/01/14 10/05/15 Nicky Haynes MD PCP - General Internal Medicine 10/06/15 04/19/20 [facility], Pcp PCP - General Internal Medicine 04/20/20 documented as of this encounter
--- OUTSIDE RECORDS SUMMARY | 2025-01-04 11:01 | XMS_ITS | Encounter Summary ---
Author Organization [facility] Address [address] [place] [address] Care Team Providers Care Assembler Knife Name Role Phone Nicky Haynes MD Primary Care Provider Ryan Lizama, Pcp Primary Care Provider [facility] e Encounter Details Date Type Department Care Team Description 05/07/2019 Senior Training Specialist Report Medical Records [address] [place] [address] Jeffrey Berrios MD Social History Tobacco Use Types Packs/Day [...] on filedocumented in this encounter Care Teams Assembler Knife Relationship Specialty Start Date End Date Nicky Haynes MD PCP - General Internal Medicine 10/06/15 04/19/20 [facility], Pcp PCP - General Internal Medicine 04/20/20 documented as of this encounter
--- OUTSIDE RECORDS SUMMARY | 2025-01-04 11:01 | XMS_ITS | Encounter Summary ---
Author Organization [facility] Address [address] [place] [address] Care Team Providers Care Wildlife Control Operator Name Role Phone Nicky Haynes MD Primary [facility] Primary [facility] Encounter Details Date Type Department Care Team Description 09/05/2016 Orders Only Medical Records [address] [place] [address] Danitza Wick DPM Social History Tobacco Use Types Packs/Day Years Used Date Smoking Tobacco: Every Day Cigarettes 0.1 40 Smokeless Tobacco: Never Comments: Alcohol Use Standard Drinks/Week Comments No 0 (1 standard drink = 0.6 oz pure alcohol) occasional alcohol use, 1 time a month about 1 beer Sex Assigned at Date Recorded Not on file documented as of this encounter Plan of Treatment Not on file documented as of this encounter Procedures Procedure Name Priority Date/Time Associated Diagnosis Comments OUTSIDE PATHOLOGY Routine 08/30/2016 documented in this encounter Results * OUTSIDE PATHOLOGY (08/30/2016) Danitza Wick DPM OUTSIDE LAB documented in this encounter Visit Diagnoses Not on filedocumented in this encounter Care Teams Wildlife Control Operator Relationship Specialty Start Date End Date Nicky Haynes MD PCP - General Internal Medicine 10/06/15 04/19/20 [facility], Pcp PCP - General Internal Medicine 04/20/20 documented as of this encounter
--- OUTSIDE RECORDS SUMMARY | 2025-01-04 11:01 | XMS_ITS | Encounter Summary ---
Author Organization [facility] Address [address] [place] [address] Care Team Providers Care Shoe Shiner Name Role Phone Nicky Haynes MD Primary Care Provider Ryan Lizama, Pcp Primary Care Provider Sebastian schroeder Encounter Details Date Type Department Care Team Description 06/16/2019 Ditch Worker Report Medical Records [address] [place] [address] Kaleb Machuca Social History Tobacco Use Types [...] on filedocumented in this encounter Care Teams Shoe Shiner Relationship Specialty Start Date End Date Nicky Haynes MD PCP - General Internal Medicine 10/06/15 04/19/20 [facility], Pcp PCP - General Internal Medicine 04/20/20 documented as of this encounter
--- OUTSIDE RECORDS SUMMARY | 2025-01-04 11:01 | XMS_ITS | Encounter Summary ---
Author Organization [facility] Address [address] [place] [address] Care Team Providers Care Peace Officer Name Role Phone Nicky Haynes MD Primary Care Provider Ryan Lizama, Pcp Primary Care Provider Sebastian schroeder Encounter Details Date Type Department Care Team Description 07/17/2016 Scleroscope Tester Report Medical Records [address] [place] [address] Cammie Benites Social History Tobacco Use Types Packs/Day Years [...] on filedocumented in this encounter Care Teams Peace Officer Relationship Specialty Start Date End Date Nicky Haynes MD PCP - General Internal Medicine 10/06/15 04/19/20 [facility], Pcp PCP - General Internal Medicine 04/20/20 documented as of this encounter
--- OUTSIDE RECORDS SUMMARY | 2025-01-04 11:01 | XMS_ITS | Encounter Summary ---
Author Organization [facility] Address [address] [place] [address] Care Team Providers Care Patient Coordinator Name Role Phone Nicky Haynes MD Primary Care Provider Ryan Lizama, Pcp Primary Care Provider Sebastian e Encounter Details Date Type Department Care Team Description 11/16/2016 Charter Coach Driver Report Medical Records [address] [place] [address] Marleni Olmedo NP Social History Tobacco Use Types Packs/Day [...] on filedocumented in this encounter Care Teams Patient Coordinator Relationship Specialty Start Date End Date Nicky Haynes MD PCP - General Internal Medicine 10/06/15 04/19/20 [facility], Pcp PCP - General Internal Medicine 04/20/20 documented as of this encounter
--- OUTSIDE RECORDS SUMMARY | 2025-01-04 11:01 | XMS_ITS | Encounter Summary ---
Author Organization [facility] Address [address] [place] [address] Care Team Providers Care Sole Rounding Machine Operator Name Role Phone Nicky Haynes MD Primary Care Provider Ryan Lizama, Pcp [facility] Encounter Details Date Type Department Care Team Description 11/26/2018 Piece Dye Worker Report Medical Records [address] [place] [phone] Annelise Dockery MD Social History Tobacco Use [...] on filedocumented in this encounter Care Teams Sole Rounding Machine Operator Relationship Specialty Start Date End Date Nicky Haynes MD PCP - General Internal Medicine 10/06/15 04/19/20 [facility], Pcp PCP - General Internal Medicine 04/20/20 documented as of this encounter
--- OUTSIDE RECORDS SUMMARY | 2025-01-04 11:01 | XMS_ITS | Encounter Summary ---
Author Organization [facility] Address [address] [place] [address] Care Team Providers Care Gluing Machine Offbearer Name Role Phone Luis Oseguera MD Primary Care Provider Unavail able Natalie Khanna MD Primary Care Provider Nicky Joshi MD Primary Care Provider Unav ailable [facility], Pcp Primary Care Provider Unavailmercedes schroeder Encounter Details Date Type Department Care Team Description 07/22/2013 Fish And Game Warden Report Medical Records [address] [place] [address] Social History Tobacco Use Types Packs/Day Years [...] on filedocumented in this encounter Care Teams Gluing Machine Offbearer Relationship Specialty Start Date End Date Luis Oseguera MD PCP - General Internal Medicine 03/20/13 11/30/14 Natalie Khanna MD PCP - General Internal Medicine 12/01/14 10/05/15 Nicky Haynes MD PCP - General Internal Medicine 10/06/15 04/19/20 [facility], Pcp PCP - General Internal Medicine 04/20/20 documented as of this encounter
--- OUTSIDE RECORDS SUMMARY | 2025-01-04 11:01 | XMS_ITS | Encounter Summary ---
Author Organization [facility] Address [address] [place] [address] Care Team Providers Care Construction Crew Member Name Role Phone Luis Oseguera MD Primary Care Provider Unavail able Natalie Khanna MD Primary Care Provider Nicky Joshi MD Primary Care Provider Unav ailable [facility], Pcp Primary Care Provider Unavailmercedes e Encounter Details Date Type Department Care Team Description 06/22/2013 Decaler Report Medical Records [address] [place] [address] Elida Cope Social History Tobacco Use Types Packs/Day Years [...] on filedocumented in this encounter Care Teams Construction Crew Member Relationship Specialty Start Date End Date Luis Oseguera MD PCP - General Internal Medicine 03/20/13 11/30/14 Natalie Khanna MD PCP - General Internal Medicine 12/01/14 10/05/15 Nicky Haynes MD PCP - General Internal Medicine 10/06/15 04/19/20 [facility], Pcp PCP - General Internal Medicine 04/20/20 documented as of this encounter
--- OUTSIDE RECORDS SUMMARY | 2025-01-04 11:01 | XMS_ITS | Encounter Summary ---
Author Organization [facility] Address [address] [place] [address] Care Team Providers Care Regional Extension Service Specialist Name Role Phone Nicky Haynes MD Primary Care Provider Ryan Lizama, Pcp [facility] Encounter Details Date Type Department Care Team Description 11/29/2016 Night Triage Doc Medical Records [address] [place] [address] Abstract, Provider Social History Tobacco Use Types [...] on filedocumented in this encounter Care Teams Regional Extension Service Specialist Relationship Specialty Start Date End Date Nicky Haynes MD PCP - General Internal Medicine 10/06/15 04/19/20 [facility], Pcp PCP - General Internal Medicine 04/20/20 documented as of this encounter
--- OUTSIDE RECORDS SUMMARY | 2025-01-04 11:01 | XMS_ITS | Encounter Summary ---
Author Organization [facility] Address [address] [place] [address] Care Team Providers Care Arts And Crafts Teacher Name Role Phone Nicky Haynes MD Primary Care Provider Ryan Lizama, Pcp Primary Care Provider Sebastian schroeder Encounter Details Date Type Department Care Team Description 01/20/2017 Hospital Medical Records [address] [place] [address] Jeffrey Berrios MD Social History Tobacco Use [...] on filedocumented in this encounter Care Teams Arts And Crafts Teacher Relationship Specialty Start Date End Date Nicky Haynes MD PCP - General Internal Medicine 10/06/15 04/19/20 [facility], Pcp PCP - General Internal Medicine 04/20/20 documented as of this encounter
--- OUTSIDE RECORDS SUMMARY | 2025-01-04 11:01 | XMS_ITS | Encounter Summary ---
Author Organization [facility] Address [address] [place] [address] Care Team Providers Care Bank Officer Name Role Phone Nicky Haynes MD Primary Care Provider Ryan Lizama, Pcp Primary Care Provider Sebastian schroeder Encounter Details Date Type Department Care Team Description 10/26/2016 Wellness Visit Medical Records [address] [place] [address] Nicky Haynes MD Social History Tobacco Use Types Packs/Day [...] on filedocumented in this encounter Care Teams Bank Officer Relationship Specialty Start Date End Date Nicky Haynes MD PCP - General Internal Medicine 10/06/15 04/19/20 [facility], Pcp PCP - General Internal Medicine 04/20/20 documented as of this encounter
--- OUTSIDE RECORDS SUMMARY | 2025-01-04 11:01 | XMS_ITS | Encounter Summary ---
Author Organization [facility] Address [address] [place] [address] Care Team Providers Care Tester Equipment Name Role Phone Nicky Haynes MD Primary Care Provider Ryan Lizama, Pcp Primary Care Provider Sebastian schroeder Encounter Details Date Type Department Care Team Description 10/19/2016 Pillowcase Cleaner Report Medical Records [address] [place] [phone] Desilets, Demetrio Olson MD Social History Tobacco Use Types Packs/Day [...] on filedocumented in this encounter Care Teams Tester Equipment Relationship Specialty Start Date End Date Nicky Haynes MD PCP - General Internal Medicine 10/06/15 04/19/20 [facility], Pcp PCP - General Internal Medicine 04/20/20 documented as of this encounter
--- OUTSIDE RECORDS SUMMARY | 2025-01-04 11:01 | XMS_ITS | Encounter Summary ---
[facility] Organization [facility] Address [address] [place] [address] Care Team Providers Care Company Accountant Name Role Phone Nicky Haynes MD Primary Care Provider Ryan miranda [facility], Pcp Primary Care Provider [facility] Encounter Details Date Type Department Care Team Description 10/29/2019 Baby Stroller Rental Clerk Report Medical Records [address] [place] [address] Social History Tobacco Use Types Packs/Day Years [...] on filedocumented in this encounter Care Teams Company Accountant Relationship Specialty Start Date End Date Nicky Haynes MD PCP - General Internal Medicine 10/06/15 04/19/20 [facility], Pcp PCP - General Internal Medicine 04/20/20 documented as of this encounter
--- OUTSIDE RECORDS SUMMARY | 2025-01-04 11:01 | XMS_ITS | Encounter Summary ---
Author Organization [facility] Address [address] [place] [address] Care Team Providers Care Furniture Cleaner Name Role Phone Nicky Haynes MD Primary Care Provider Ryan miranda [facility], Pcp Primary Care Provider [facility] Encounter Details Date Type Department Care Team Description 11/05/2016 Orders Only Medical Records [address] [place] [address] Bacilio Wilson MD Social History Tobacco Use Types Packs/Day [...] Name Priority Date/Time Associated Diagnosis Comments OUTSIDE SLEEP STUDY Routine 10/30/2016 documented in this encounter Results * OUTSIDE SLEEP STUDY (10/30/2016) Bacilio Wilson MD PULMONOLOGY documented in this encounter Visit Diagnoses Not on filedocumented in this encounter Care Teams Furniture Cleaner Relationship Specialty Start Date End Date Nicky Haynes MD PCP - General Internal Medicine 10/06/15 04/19/20 [facility], Pcp PCP - General Internal Medicine 04/20/20 documented as of this encounter
--- OUTSIDE RECORDS SUMMARY | 2025-01-04 11:01 | XMS_ITS | Encounter Summary ---
Author Organization [facility] Address [address] [place] [address] Care Team Providers Care Lithographic Proofer Apprentice Name Role Phone Nicky Haynes MD Primary Care Provider [facility], Pcp Primary Care Provider Unavailabl e Reason for Visit * Reason Onset Date Comments APPOINTMENT 01/08/2019 Encounter Details Date Type Department Care Team Description 01/08/2019 Telephone Radiology - [address] [address] Nia Méndez MD [address] [place] [address] [place], [place] [id number] APPOINTMENT Social History Tobacco Use Types Packs/Day Years [...] encounter Miscellaneous Notes * Telephone Encounter - Pauline Maradiaga M.A. - 01/08/2019 10:01 AM EDT Spoke with patient an earlier appointment was scheduled * Telephone Encounter - Lin Naranjo - 01/08/2019 9:45 AM EDT Patient called to reschedule her appoitment with Dr. Sutton, her new appoitment is scheduled for 03/19/19 but she doesn't want to wait that long. I informed the patient that she can call to check for cancellations, but she is also asking that if anything does open that she be notified. Please reviewand advise. documented in this encounter Plan of Treatment Not on file documented as of this encounter Visit Diagnoses Not on filedocumented in this encounter Care Teams Lithographic Proofer Apprentice Relationship Specialty Start Date End Date Nicky Haynes MD PCP - General Internal Medicine 10/06/15 04/19/20 [facility], Pcp PCP - General Internal Medicine 04/20/20 documented as of this encounter
--- OUTSIDE RECORDS SUMMARY | 2025-01-04 11:01 | XMS_ITS | Encounter Summary ---
Author Organization [facility] Address [address] [place] [address] Care Team Providers Care Fiscal Accountant Name Role Phone Nicky Haynes MD Primary Care Provider [facility], Pcp Primary Care Provider Unavailabl e Reason for Visit * Reason Onset Date Comments refill request 10/01/2019 Encounter Details Date Type Department Care Team Description 10/01/2019 Telephone Adult Medicine [address] [address] Nicky Haynes MD refill request Social History Tobacco Use Types Packs/Day Years [...] encounter Miscellaneous Notes * Telephone Encounter - Delvin Hawk PA-C - 10/01/2019 10:48 AM EDT sent * Telephone Encounter - Bonny Davsi L.P.N. - 10/01/2019 9:26 AM EDT mary 09/22/19 Lab Results Component Value Date NA 131 09/10/2019 K 4.4 09/10/2019 CO2 26 09/10/2019 CL 100 09/10/2019 BUN 10 09/10/2019 CREAT 0.94 09/10/2019 GLU 108 09/10/2019 CA 9.0 09/10/2019 GFR 60 09/10/2019 * Telephone Encounter - Jeannie Amosbarbie - 10/01/2019 9:20 AM EDT Patient would like script to be: E-PRESCRIBED/FAXED TO PHARMACY WHEN WAS THE PATIENT'S LAST APPOINTMENT IN ADULT MEDICINE? 09/22/2019 WHEN WAS THE LAST TIME THE PATIENT SAW THEIR PCP? Same as above Does patient have an upcoming appointment? No-patient refused appointment, will call back to book appointment (THE MEDICATION REQUESTED IS ON THE MED LIST ABOVE) All of the medications requested were on the CURRENT MEDS list Did you check the Pharmacy information above?: YES Patient wants: 90 -day supply Is this a mail order prescription request ? NO If the refill is from a FAXED refill request what is the RX # listed on the fax? N/A Patients current insurance carrier is: Payor: [employer] [facility] / Plan: [facility] / Product Type: HMO [id number] documented in this encounter Plan of Treatment Not on file documented as of this encounter Visit Diagnoses Not on filedocumented in this encounter Care Teams Fiscal Accountant Relationship Specialty Start Date End Date Nicky Haynes MD PCP - General Internal Medicine 10/06/15 04/19/20 [facility], Pcp PCP - General Internal Medicine 04/20/20 documented as of this encounter
--- OUTSIDE RECORDS SUMMARY | 2025-01-04 11:01 | XMS_ITS | Encounter Summary ---
Author Organization [facility] Address [address] [place] [address] Care Team Providers Care Platform Consultant Name Role Phone Nicky Haynes MD Primary Care Provider Ryan Lizama, Pcp Primary Care Provider Sebastian schroeder Encounter Details Date Type Department Care Team Description 07/02/2016 Hospital Medical Records [address] [place] [address] Desilets, Demetrio Olson MD Social History Tobacco [...] on filedocumented in this encounter Care Teams Platform Consultant Relationship Specialty Start Date End Date Nicky Haynes MD PCP - General Internal Medicine 10/06/15 04/19/20 [facility], Pcp PCP - General Internal Medicine 04/20/20 documented as of this encounter
--- OUTSIDE RECORDS SUMMARY | 2025-01-04 11:01 | XMS_ITS | Encounter Summary ---
Author Organization [facility] Address [address] [place] [address] Care Team Providers Care Engineering Manager Electronics Name Role Phone Luis Oseguera MD Primary Care Provider Unavail able Natalie Khanna MD Primary Care Provider Nicky Joshi MD Primary Care Provider Unav ailable [facility], Pcp Primary Care Provider Unavailmercedes e Encounter Details Date Type Department Care Team Description 07/15/2014 Mechanical Ordnance Assembler Report Medical Records [address] [place] [address] Adam Briceno MD Social History Tobacco Use [...] on filedocumented in this encounter Care Teams Engineering Manager Electronics Relationship Specialty Start Date End Date Luis Oseguera MD PCP - General Internal Medicine 03/20/13 11/30/14 Natalie Khanna MD PCP - General Internal Medicine 12/01/14 10/05/15 Nicky Haynes MD PCP - General Internal Medicine 10/06/15 04/19/20 [facility], Pcp PCP - General Internal Medicine 04/20/20 documented as of this encounter
--- OUTSIDE RECORDS SUMMARY | 2025-01-04 11:01 | XMS_ITS | Encounter Summary ---
Author Organization [facility] Address [address] [place] [address] Care Team Providers Care Metal Products Viewer Name Role Phone Nicky Haynes MD [facility] Primary Care Provider Unavailabl e Reason for Visit * Reason Onset Date Comments Form 01/14/2017 ibeatyou appli cation Encounter Details Date Type Department Care Team Description 01/14/2017 Telephone Adult Medicine [address] [address] Nicky Haynes MD Form (ibeatyou application) Social History Tobacco Use Types Packs/Day Years [...] encounter Miscellaneous Notes * Telephone Encounter - Michelle Espinal - 01/14/2017 8:37 AM EDT error * Telephone Encounter - Michelle Espinal - 01/14/2017 8:36 AM EDT Please complete, sign, date and review ibeatyou application. Placed in bin a-side documented in this encounter Plan of Treatment Not on file documented as of this encounter Visit Diagnoses Not on filedocumented in this encounter Care Teams Metal Products Viewer Relationship Specialty Start Date End Date Nicky Haynes MD PCP - General Internal Medicine 10/06/15 04/19/20 [facility], Pcp PCP - General Internal Medicine 04/20/20 documented as of this encounter
--- OUTSIDE RECORDS SUMMARY | 2025-01-04 11:01 | XMS_ITS | Encounter Summary ---
Author Organization [facility] Address [address] [place] [address] Care Team Providers Care Public Works Laborer Name Role Phone Nicky Haynes MD Primary Care Provider Ryan Lizama, Pcp Primary Care Provider Sebastian schroeder Encounter Details Date Type Department Care Team Description 09/10/2017 Armhole Presser Report Medical Records [address] [place] [address] Kaleb Machuca Social History Tobacco Use Types [...] on filedocumented in this encounter Care Teams Public Works Laborer Relationship Specialty Start Date End Date Nicky Haynes MD PCP - General Internal Medicine 10/06/15 04/19/20 [facility], Pcp PCP - General Internal Medicine 04/20/20 documented as of this encounter
--- OUTSIDE RECORDS SUMMARY | 2025-01-04 11:01 | XMS_ITS | Encounter Summary ---
Author Organization [facility] Address [address] [place] [address] Care Team Providers Care Carton Wrapper Name Role Phone Nicky Haynes MD Primary Care Provider Ryan Lizama, Pcp Primary [facility] Encounter Details Date Type Department Care Team Description 02/04/2017 Fine Arts Packer Report Medical Records [address] [place] [address] Jeffrey Berrios MD Social History Tobacco Use [...] on filedocumented in this encounter Care Teams Carton Wrapper Relationship Specialty Start Date End Date Nicky Haynes MD PCP - General Internal Medicine 10/06/15 04/19/20 [facility], Pcp PCP - General Internal Medicine 04/20/20 documented as of this encounter
--- OUTSIDE RECORDS SUMMARY | 2025-01-04 11:01 | XMS_ITS | Encounter Summary ---
Author Organization [facility] Address [address] [place] [address] Care Team Providers Care Child Welfare Director Name Role Phone Luis Oseguera MD Primary Care Provider Unavail able Natalie Khanna MD Primary Care Provider Nicky Joshi MD Primary Care Provider Unav [facility], Pcp Primary Care Provider Unavailabl e Reason for Visit * Reason Onset Date Comments Provider Call Back 07/16/2014 Encounter Details Date Type Department Care Team Description 07/16/2014 Telephone Adult Medicine - [place] [address] [place] [address] Luis Oseguera MD Provider Call Back Social History Tobacco [...] encounter Miscellaneous Notes * Telephone Encounter - Alena Belle R.N. - 07/16/2014 11:58 AM EDT SUSANNAHI for Dr. Bernstein , pt was see this am * Telephone Encounter - Yanira Cole - 07/16/2014 10:57 AM EDT Caller requesting call back from provider: Is the caller the patient? YES If caller is not the patient, what is the callers name? N/A Callers relationship to patient? N/A If person calling is not the patient themselves, is there a verbal release in FYI or permanent comments for this person: NO Reason for call back: Patient wanted to let us know that she is going to go to [facility] instead of [facility] Caller offered to speak with the nurse for assistance: Yes Response: Patient offered to speak with nurse for assistance and patient agreed. Message forwarded to nurse. documented in this encounter Plan of Treatment Not on file documented as of this encounter Visit Diagnoses Not on filedocumented in this encounter Care Teams Child Welfare Director Relationship Specialty Start Date End Date Luis Oseguera MD PCP - General Internal Medicine 03/20/13 11/30/14 Natalie Khanna MD PCP - General Internal Medicine 12/01/14 10/05/15 Nicky Haynes MD PCP - General Internal Medicine 10/06/15 04/19/20 [facility], Pcp PCP - General Internal Medicine 04/20/20 documented as of this encounter
--- OUTSIDE RECORDS SUMMARY | 2025-01-04 11:01 | XMS_ITS | Encounter Summary ---
Author Organization [facility] Address [address] [place] [address] Care Team Providers Care Baggage Smasher Name Role Phone Nicky Haynes MD Primary Care Provider [facility], Pcp Primary Care Provider Unavailabl e Reason for Visit * Reason Onset Date Comments TEST RESULTS 04/21/2019 Encounter Details Date Type Department Care Team Description 04/21/2019 Telephone Adult Medicine [facility] [address] [place] [address] Delvin Hawk PA-C TEST RESULTS Social History Tobacco Use Types Packs/Day Years [...] encounter Miscellaneous Notes * Telephone Encounter - Ondina Abreu - 04/21/2019 8:57 AM EST [phone] (home) [phone] (work) Left message to call back. Please put to [phone] or re-message to A side * Telephone Encounter - Ondina Abreu - 04/21/2019 8:57 AM EST ----- Message from Delvin Hawk PA-C sent at 04/21/2019 8:36 AM EST ----- Please call patient and let her know that her sodium is slightly decreased at 129. She has been at this level before and that is where it was when she was in the ER 2 weeks ago. She needs to watch her fluid intake and increase some of the salt in her diet. She also needs to follow-up with her utility bill collection clerk (Dr. Woods) because of her low sodium. They have put her on salt tablets in the past but we will defer to them for that. Also please fax a copy of labs to Dr. Woods and nephrology. Also let Felipa know that her TSH is elevated. Make sure that she is taking her levothyroxine daily but also make sure that she is taking the levothyroxine first thing in the morning on an empty stomach without other medicines especially her iron tablets. She should not be taking iron in the levothyroxine together. She should take the levothyroxine first thing in the morning and the iron in the evening. Her blood sugar was good and her hemoglobin A1c was normal. The rest of her labs were good. We should recheck her sodium in about 2 weeks and she can just come to the lab to have this done. documented in this encounter Plan of Treatment Not on file documented as of this encounter Visit Diagnoses Not on filedocumented in this encounter Care Teams Baggage Smasher Relationship Specialty Start Date End Date Nicky Haynes MD PCP - General Internal Medicine 10/06/15 04/19/20 [facility], Pcp PCP - General Internal Medicine 04/20/20 documented as of this encounter
--- OUTSIDE RECORDS SUMMARY | 2025-01-04 11:01 | XMS_ITS | Encounter Summary ---
Author Organization [facility] Address [address] [place] [address] Care Team Providers Care Activities Director Scouting Name Role Phone Nicky Haynes MD Primary Care Provider Ryan Lizama, Pcp Primary Care Provider [facility] Encounter Details Date Type Department Care Team Description 11/19/2016 Blockman Report Medical Records [address] [place] [address] Adam Briceno MD Social History Tobacco Use [...] on filedocumented in this encounter Care Teams Activities Director Scouting Relationship Specialty Start Date End Date Nicky Haynes MD PCP - General Internal Medicine 10/06/15 04/19/20 [facility], Pcp PCP - General Internal Medicine 04/20/20 documented as of this encounter
--- OUTSIDE RECORDS SUMMARY | 2025-01-04 11:01 | XMS_ITS | Encounter Summary ---
Author Organization [facility] Address [address] [place] [address] Care Team Providers Care Structural Steel Worker Apprentice Name Role Phone Nicky Haynes MD Primary Care Provider [facility], Pcp Primary Care Provider Unavailabl e Reason for Referral * Non HORACIO (Urgent) - Authorized/Booked Specialty Diagnoses / Procedures Referred By Contmaria teresa t Referred To Contact Physiatry Diagnoses Closed head injury with concussion, with loss of consciousness of 30 minutes or less, initial encounter Procedures REFERRAL TO PHYSIATRY Delvin Hawk PA-C [address] [place] [id number] [place] [address]/[address] [address] Referral ID Status Reason Start Date Expiration Date V isits Requested Visits Authorized [id number] WITHIN 1 WEEK Authorized/ Booked 10/12/2016 10/12/2017 1 1 Reason for Visit * Reason Onset Date Comments Medical Director/Head Team Physician Feedback 10/12/2016 Neurology Encounter Details Date Type Department Care Team Description 10/12/2016 Telephone Adult Medicine [address] [address] Delvin Hawk PA-C Medical Director/Head Team Physician Feedback (Neurology) Social History Tobacco Use Types Packs/Day Years [...] Telephone Encounter - Delvin Hawk PA-C - 10/12/2016 10:23 AM EDT Placed as requested * Telephone Encounter - Vanda Mensah - 10/12/2016 9:00 AM EDT Sorry I accidentally closed the last message. Please sign new order. Thank you, Vanda Carton Gluing Machine Operator * Telephone Encounter - Vanda Mensah - 10/12/2016 8:54 AM EDT You placed an Urgent order for Neurology for this paitent. I called [facility] to book appointment. The office called me back today and state that after [facility] records he rocommends patient to follow up with concussion clinic. I have pended a new order for you to sign. Thank you, Vanda Carton Gluing Machine Operator documented in this encounter Plan of Treatment Not on file documented as of this encounter Visit Diagnoses Diagnosis Closed head injury with concussion, with loss of consciousness of 30 minutes or less, initial encounter- Primary documented in this encounter Care Teams Structural Steel Worker Apprentice Relationship Specialty Start Date End Date Nicky Haynes MD PCP - General Internal Medicine 10/06/15 04/19/20 [facility], Pcp PCP - General Internal Medicine 04/20/20 documented as of this encounter
--- OUTSIDE RECORDS SUMMARY | 2025-01-04 11:02 | XMS_ITS | Encounter Summary ---
Author Organization [facility] Address [address] [place] [address] Care Team Providers Care Keg Raiser Name Role Phone Nicky Haynes MD Primary Care Provider Ryan Lizama, Pcp Primary Care Provider Sebastian schroeder Encounter Details Date Type Department Care Team Description 01/22/2016 Business Doc Medical Records [address] [place] [address] Abstract, Provider Social History Tobacco Use Types [...] on filedocumented in this encounter Care Teams Keg Raiser Relationship Specialty Start Date End Date Nicky Haynes MD PCP - General Internal Medicine 10/06/15 04/19/20 [facility], Pcp PCP - General Internal Medicine 04/20/20 documented as of this encounter
--- OUTSIDE RECORDS SUMMARY | 2025-01-04 11:02 | XMS_ITS | Encounter Summary ---
Author Organization [facility] Address [address] [place] [address] Phone Care Team Providers Care Hoeing Row Boss Name Role Phone Sole Hendricks MD Unavailable [phone] Sanjay Carl NP Primary Care Provider [phone] Encounter Details Date Type Department Care Team (Late st Contact Info) Description 05/27/2023 Procedure Pass [facility] Periop [address] [place] [address] Social History Tobacco Use Types Packs/Day Years [...] on filedocumented in this encounter Care Teams Hoeing Row Boss Relationship Specialty Start Date End Date Sanjay Carl, MEDICAL SUPPORT SPECIALIST [address] [place] [address] PCP - General Nurse Practitioner 12/19/22 Sole Hendricks MD [address] [place] [address] [place] [address] Dermatology 12/12/22 documented as of this encounter Additional Source Comments The information contained in this document represents components of the legal health record. It is not the complete legal health record.[facility]
--- OUTSIDE RECORDS SUMMARY | 2025-01-04 11:02 | XMS_ITS | Encounter Summary ---
Author Organization [facility] Address [address] [place] [address] Care Team Providers Care Extraction Operator Name Role Phone Nicky Haynes MD Primary Care Provider Ryan Lizama, Pcp Primary Care [facility] Encounter Details Date Type Department Care Team Description 02/17/2019 Hospital Medical Records [address] [place] [address] Mulugeta López MD Social History Tobacco Use Types Packs/Day [...] on filedocumented in this encounter Care Teams Extraction Operator Relationship Specialty Start Date End Date Nicky Haynes MD PCP - General Internal Medicine 10/06/15 04/19/20 [facility], Pcp PCP - General Internal Medicine 04/20/20 documented as of this encounter
--- OUTSIDE RECORDS SUMMARY | 2025-01-04 11:02 | XMS_ITS | Encounter Summary ---
Author Organization [facility] Address [address] [place] [address] Care Team Providers Care Beater Operator Name Role Phone Nicky Haynes MD Primary Care Provider Ryan Lizama, Pcp Primary Care Provider Sebastian schroeder Encounter Details Date Type Department Care Team Description 12/07/2015 [facility] Medical Records [address] [place] [address] Abstract, Provider Social History Tobacco Use Types [...] on filedocumented in this encounter Care Teams Beater Operator Relationship Specialty Start Date End Date Nicky Haynes MD PCP - General Internal Medicine 10/06/15 04/19/20 [facility], Pcp PCP - General Internal Medicine 04/20/20 documented as of this encounter
--- OUTSIDE RECORDS SUMMARY | 2025-01-04 11:02 | XMS_ITS | Encounter Summary ---
Author Organization [facility] Address [address] [place] [address] Care Team Providers Care Chemical Process Analyst Name Role Phone Luis Oseguera MD Primary Care Provider Unavail able Natalie Khanna MD Primary Care Provider Nicky Joshi MD Primary Care Provider Unav ailable [facility], Pcp Primary Care Provider Unavailmercedes e Encounter Details Date Type Department Care Team Description 04/29/2013 Controlled Substance Plan Medical Records [address] [place] [address] Abstract, Provider Social History Tobacco Use Types [...] on filedocumented in this encounter Care Teams Chemical Process Analyst Relationship Specialty Start Date End Date Luis Oseguera MD PCP - General Internal Medicine 03/20/13 11/30/14 Natalie Khanna MD PCP - General Internal Medicine 12/01/14 10/05/15 Nicky Haynes MD PCP - General Internal Medicine 10/06/15 04/19/20 [facility], Pcp PCP - General Internal Medicine 04/20/20 documented as of this encounter
--- OUTSIDE RECORDS SUMMARY | 2025-01-04 11:02 | XMS_ITS | Encounter Summary ---
Author Organization [facility] Address [address] [place] [address] Care Team Providers Care Senior Asic Design Engineer Name Role Phone Nicky Haynes MD Primary Care Provider Ryan Lizama, Pcp Primary Care Provider Sebastian e Encounter Details Date Type Department Care Team Description 02/24/2019 Old Medical Records Medical Records [address] [place] [id number] Abstract, Provider Social History Tobacco Use Types [...] filedocumented in this encounter Care Teams Senior Asic Design Engineer Relationship Specialty Start Date End Date Nicky Haynes MD PCP - General Internal Medicine 10/06/15 04/19/20 [facility], Pcp PCP - General Internal Medicine 04/20/20 documented as of this encounter
--- OUTSIDE RECORDS SUMMARY | 2025-01-04 11:02 | XMS_ITS | Encounter Summary ---
Author Organization [facility] Address [address] [place] [address] Phone Care Team Providers Care Fruit And Vegetable Inspector Name Role Phone Sole Hendricks MD Unavailable [phone] Sanjay Carl NP Primary Care Provider Encounter Details Date Type Department Care Team (Late st Contact Info) Description 05/17/[address] [facility] Periop [address] [place] [address] Social History Tobacco Use Types Packs/Day Years [...] on filedocumented in this encounter Care Teams Fruit And Vegetable Inspector Relationship Specialty Start Date End Date Sanjay Carl, SORTER LUMBER STRAIGHTENER [address] [place] [address] PCP - General Nurse Practitioner 12/19/22 Sole Hendricks MD [address] [place] [address] [place] [address] Dermatology 12/12/22 documented as of this encounter Additional Source Comments The information contained in this document represents components of the legal health record. It is not the complete legal health record.[facility]
--- OUTSIDE RECORDS SUMMARY | 2025-01-04 11:02 | XMS_ITS | Encounter Summary ---
Author Organization [facility] Address [address] [place] [address] Care Team Providers Care Red Cross Executive Director Name Role Phone Nicky Haynes MD Primary Care Provider [facility], Pcp Primary Care Provider Unavailabl e Reason for Visit * Reason Onset Date Comments hospital follow up 03/04/2019 Encounter Details Date Type Department Care Team Description 03/04/2019 Telephone Adult Medicine - [place] [address] [place] [address] Nicky Haynes MD hospital follow up Social [...] encounter Miscellaneous Notes * Telephone Encounter - Bonny Davis L.P.N. - 03/04/2019 1:51 PM EST Fyi/ pt admitted to a assisted facility * Telephone Encounter - Umm Acosta - 03/04/2019 1:41 PM EST Deysi calling from [facility] for Dr Haynes's nurse responding to a call earlier. Rhona had a fractured femur. This was repaired and she was sent home but could not care for herself at home, so she was admitted to the [facility]. Please return her call at [phone] if more information is needed. * Telephone Encounter - Lashon Tucker L.P.N. - 03/04/2019 10:09 AM EST Rhona Gandara (Self) [phone] Call placed to pt. She states that she is inpatient at rehab center, [facility] in [place]. She had to cancel her hospital follow up for today. Re- scheduled for once she discharges from rehab,03/17/19 at 1:30 PM. Pt was in [facility]. * Telephone Encounter - Corinna Abdullahi - 03/04/2019 9:54 AM EST Patient canceled today's hospital follow up and needs to reschedule. Hospital follow up appointment needed ?? Hospital patient was treated at: [facility] ?? Was this only an ER visit or was the patient admitted to the hospital? Admitted to hospital ?? Date of visit if ER visit only: N/A ?? If patient was admitted what was the date of discharge? 02/17/19 ?? Reason/diagnosis for visit or stay: shattered left fermur ?? When was the patient told to follow up? 1 week from discharge ?? Was visit or stay related to an injury? YES ?? If yes, what was the date of injury (DOI)? 02/12/19 ?? If yes, was the injury due to N/A documented in this encounter Plan of Treatment Not on file documented as of this encounter Visit Diagnoses Not on filedocumented in this encounter Care Teams Red Cross Executive Director Relationship Specialty Start Date End Date Nicky Haynes MD PCP - General Internal Medicine 10/06/15 04/19/20 [facility], Pcp PCP - General Internal Medicine 04/20/20 documented as of this encounter
--- OUTSIDE RECORDS SUMMARY | 2025-01-04 11:02 | XMS_ITS | Encounter Summary ---
Author Organization [facility] Address [address] [place] [address] Care Team Providers Care Forensic Economist Name Role Phone Natalie Khanna MD Primary Care Provider Nicky Joshi MD [facility] Encounter Details Date Type Department Care Team Description 08/08/2015 Wellness Visit Medical Records [address] [place] [address] Natalie Khanna MD Social History Tobacco Use Types Packs/Day Years Used Date Smoking Tobacco: Every Day Cigarettes 0.8 40 Smokeless Tobacco: Never Comments:10 cig daily Alcohol Use Standard Drinks/Week Comments No 0 (1 standard drink = 0.6 oz pure alcohol) last drink 3 yrs ago, used to be heavy, no program. Sex Assigned at Date Recorded Not on file documented as of this encounter Plan of Treatment Not on file documented as of this encounter Visit Diagnoses Not on filedocumented in this encounter Care Teams Forensic Economist Relationship Specialty Start Date End Date Natalie Khanna MD PCP - General Internal Medicine 12/01/14 10/05/15 Nicky Haynes MD PCP - General Internal Medicine 10/06/15 04/19/20 [facility], Pcp PCP - General Internal Medicine 04/20/20 documented as of this encounter
--- OUTSIDE RECORDS SUMMARY | 2025-01-04 11:02 | XMS_ITS | Encounter Summary ---
Author Organization [facility] Address [address] [place] [address] [place] [address] Phone Care Team Providers Care Veneer Sample Maker Name Role Phone Sole Hendricks MD Unavailable [phone] Sanjay Carl HYDROMETER TESTER Primary Care Provider [phone] Encounter Details Date Type Department Care Team (Late st Contact Info) Description 02/01/2023 Procedure Pass OR Admitting Dept - Virtual Department [address] [place] [address] Social History Tobacco Use Types Packs/Day Years [...] on filedocumented in this encounter Care Teams Veneer Sample Maker Relationship Specialty Start Date End Date Sanjay Carl, HYDROMETER TESTER [address] [place] [address] PCP - General Nurse Practitioner 12/19/22 Sole Hendricks MD [facility] [place] [address] Dermatology 12/12/22 documented as of this encounter Additional Source Comments The information contained in this document represents components of the legal health record. It is not the complete legal health record.[facility]
--- OUTSIDE RECORDS SUMMARY | 2025-01-04 11:02 | XMS_ITS | Encounter Summary ---
Author Organization [facility] Address [address] [place] [address] Care Team Providers Care Oral And Maxillofacial Surgery Resident Name Role Phone Nicky Haynes MD Primary Care Provider Ryan Lizama, Pcp Primary Care Provider Sebastian schroeder Encounter Details Date Type Department Care Team Description 02/12/2019 [facility] Medical Records [address] [place] [address] Social History Tobacco Use Types Packs/Day Years [...] on filedocumented in this encounter Care Teams Oral And Maxillofacial Surgery Resident Relationship Specialty Start Date End Date Nicky Haynes MD PCP - General Internal Medicine 10/06/15 04/19/20 [facility], Pcp PCP - General Internal Medicine 04/20/20 documented as of this encounter
--- OUTSIDE RECORDS SUMMARY | 2025-01-04 11:02 | XMS_ITS | Encounter Summary ---
Author Organization [facility] Address [address] [place] [address] Care Team Providers Care Mental Health Nurse Name Role Phone Nicky Haynes MD Primary Care Provider Ryan Lizama, Pcp Primary Care Provider Sebastian schroeder Encounter Details Date Type Department Care Team Description 02/18/2016 Walk In Clinic Visit Medical Records [address] [place] [address] Social History Tobacco Use Types Packs/Day Years [...] on filedocumented in this encounter Care Teams Mental Health Nurse Relationship Specialty Start Date End Date Nicky Haynes MD PCP - General Internal Medicine 10/06/15 04/19/20 [facility], Pcp PCP - General Internal Medicine 04/20/20 documented as of this encounter
--- OUTSIDE RECORDS SUMMARY | 2025-01-04 11:02 | XMS_ITS | Encounter Summary ---
Author Organization [facility] Address [address] [place] [address] Phone Care Team Providers Care Senior Mechanical Development Engineer Name Role Phone Sole Hendricks MD Unavailable [phone] Sanjay Carl NP Primary Care Provider [phone] Encounter Details Date Type Department Care Team (Late st Contact Info) Description 05/20/2023 Procedure Pass [facility] Periop [address] [place] [address] Social History Tobacco Use Types Packs/Day Years [...] filedocumented in this encounter Care Teams Senior Mechanical Development Engineer Relationship Specialty Start Date End Date Sanjay Carl, SENIOR SOFTWARE DEVELOPMENT ENGINEER [address] [place] [address] PCP - General Nurse Practitioner 12/19/22 Sole Hendricks MD [address] [place] [address] [place] [address] Dermatology 12/12/22 documented as of this encounter Additional Source Comments The information contained in this document represents components of the legal health record. It is not the complete legal health record.[facility]
--- OUTSIDE RECORDS SUMMARY | 2025-01-04 11:02 | XMS_ITS | Encounter Summary ---
Author Organization [facility] Address [address] [place] [address] Care Team Providers Care Detasseling Crew Supervisor Name Role Phone Nicky Haynes MD Primary Care Provider [facility], Pcp Primary Care Provider Unavailabl e Reason for Visit * Reason Onset Date Comments Call From Insurance Co 02/20/2019 Encounter Details Date Type Department Care Team Description 02/20/2019 Telephone Adult Medicine [facility] [address] [place] [address] Nicky Haynes MD Call From Insurance Co Social History Tobacco Use Types Packs/Day Years [...] encounter Miscellaneous Notes * Telephone Encounter - Lashon WoodPDenice - 02/25/2019 8:38 AM EST raya from [facility] [phone] Call placed to [facility]. Phone number for office left in automatic cue for return call. Transfer to triage on return call. Thank you! * Telephone Encounter - Bonny Daivs L.P.N. - 02/24/2019 2:25 PM EST msg left for Raya * Telephone Encounter - Bonny Davis L.P.NTrina - 02/24/2019 8:16 AM EST Office is closed / will try later * Telephone Encounter - Mckenna Albarado L.P.NTrina - 02/23/2019 9:47 AM EST Tried calling Raya. Office is closed today for the holiday. Please try again tomorrow. * Telephone Encounter - Bonny Davis L.P.NTrina - 02/20/2019 4:19 PM EST Message left for Raya to return my call. * Telephone Encounter - Ondina Garcia - 02/20/2019 4:07 PM EST A nurse * Telephone Encounter - Brenda Alfaro M.A. - 02/20/2019 4:01 PM EST Is Raya a nurse? Or a provider? * Telephone Encounter - Ondina Garcia - 02/20/2019 3:57 PM EST [facility] from [facility] * Telephone Encounter - Brenda Alfaro M.A. - 02/20/2019 3:53 PM EST Who is Nargis? Is she a provider? * Telephone Encounter - Ondina Garcia - 02/20/2019 3:47 PM EST Wants to speak with nurse about proccess of admission to longterm documented in this encounter Plan of Treatment Not on file documented as of this encounter Visit Diagnoses Not on filedocumented in this encounter Care Teams Detasseling Crew Supervisor Relationship Specialty Start Date End Date Nicky Haynes MD PCP - General Internal Medicine 10/06/15 04/19/20 [facility], Pcp PCP - General Internal Medicine 04/20/20 documented as of this encounter
--- OUTSIDE RECORDS SUMMARY | 2025-01-04 11:02 | XMS_ITS | Clinical Summary ---
Author Organization [facility] Address [address] [place] [address] Phone Care Team Providers Care Assistant Chief Nursing Officer Name Role Phone Sole Hendricks MD Unavailable Sanjay Carl HOSPITAL PHARMACIST Primary Care Provider [phone] Allergies Active Allergy Reactions Criticality Noted Date [...] EST) TSH 5.56 0.50 - 5.70 uIU/mL [facility] Blood 05/21/2023 6:26 AM EST 05/21/2023 7:00 AM EST Ernie Gonsales MD LAB BLOOD ORDERABLES Final Re sult [facility] [address] [place] [address] from Last 3 Months or Most Recently Relevant to Health Maintenance Insurance [address] [place], [place] [address] [place] [address] CARE MEDICARE REPLACEMENT CARE MEDICARE REPLACEMENT [address] [place] [address] CARE MEDICARE REPLACEMENT CARE MEDICARE REPLACEMENT CARE MEDICARE REPLACEMENT Advance Directives For more information, please contact: [phone] (9AM - 5PM Cristiane/[place], Saturday-Saturday) * Full Code (Latest Code Status on File) Date Activated Date Inactivated Comments 05/16/2023 6:17 PM Question Answer Comments Code Status Confirmed With: Patient Care Teams Assistant Chief Nursing Officer Relationship Specialty Start Date End Date Sanjay Carl NP [address] [place] [address] PCP - General Nurse Practitioner 12/19/22 Sole Hendricks MD [facility] [place] [address] Dermatology 12/12/22 Additional Source Comments The information contained in this document represents components of the legal health record. It is not the complete legal health record.[facility]
--- OUTSIDE RECORDS SUMMARY | 2025-01-04 11:02 | XMS_ITS | Encounter Summary ---
Author Organization [facility] Address [address] [place] [address] Care Team Providers Care Emergency Room Nurse Name Role Phone Nicky Haynes MD Primary Care Provider [facility], Pcp Primary Care Provider Unavailabl e Reason for Visit * Reason Onset Date Comments hospital follow up 03/17/2019 Encounter Details Date Type Department Care Team Description 03/17/2019 Telephone Adult Medicine [facility] [address] [place] [address] Nicky Haynes MD hospital follow up Social [...] encounter Miscellaneous Notes * Telephone Encounter - Kimberley Pan M.A. - 03/17/2019 12:57 PM EST Patient went to [facility], was admitted then discharged home, then went to [facility] 03/02/19 to 03/09/19 from home. Hospital follow up booked 03/24/19. Please request notes from [facility]. * Telephone Encounter - Corinna Abdullahi - 03/17/2019 12:07 PM EST Patient canceled today's appt and needs to reschedule. Hospital patient was treated at: [facility] ?? Was this only an ER visit or was the patient admitted to the hospital? Admitted to hospital ?? Date of visit if ER visit only: N/A ?? If patient was admitted what was the date of discharge? 03/09/2019 ?? Reason/diagnosis for visit or stay: ?? When was the patient told to follow up? ?? Was visit or stay related to an injury? NO ?? If yes, what was the date of injury (DOI)? N/A ?? If yes, was the injury due to N/A documented in this encounter Plan of Treatment Not on file documented as of this encounter Visit Diagnoses Not on filedocumented in this encounter Care Teams Emergency Room Nurse Relationship Specialty Start Date End Date Nicky Haynes MD PCP - General Internal Medicine 10/06/15 04/19/20 [facility], Pcp PCP - General Internal Medicine 04/20/20 documented as of this encounter
--- OUTSIDE RECORDS SUMMARY | 2025-01-04 11:03 | XMS_ITS | Encounter Summary ---
Author Organization [facility] Address [address] [place] [address] Care Team Providers Care Health Insurance Sales Agent Name Role Phone Shaun Khanna MD Primary Care Provider Nicky Joshi MD [facility] Primary Care Provider Unavailabl e Reason for Visit * Reason Onset Date Comments other 12/09/2014 uncontrolled sha avinash Encounter Details Date Type Department Care Team Description 12/09/2014 Telephone Adult Medicine [facility] [address] [place] [address] Shaun Khanna MD other (uncontrolled shaking) Social History Tobacco Use Types Packs/Day Years Used Date Smoking Tobacco: Every Day Cigarettes 0.5 40 Smokeless Tobacco: Never Comments:trying to cut down Alcohol Use Standard Drinks/Week Comments No 0 (1 standard drink = 0.6 oz pure alcohol) last drink 3 yrs ago, used to be heavy, no program. Sex Assigned at Date Recorded Not on file documented as of this encounter Miscellaneous Notes * Telephone Encounter - Summer Antony L.P.N. - 12/09/2014 10:04 AM EDT Pt calling stating the shaking she has had on the right side of her body is much worse today .States her whole right side has been shaking since 6.30 this morning .She had an MRI and is awaiting apptwith Neurology in January. Pt is going to have her take her to the Er for evaluation. * Telephone Encounter - Anel Erendira - 12/09/2014 9:46 AM EDT Symptoms patient is presenting: uncontrolled shaking of right side of the body, worse than before. If pain or injury related was it due to an accident at work or from a motor vehicle accident? NO If yes, gather 3rd constitution party insurance information Date of accident/Injury: na How long has patient had these symptoms?: today 12/10/14 PCP: SHAUN KHANNA Payor: MEDICARE-[employer]erts! / Plan: MEDICARE-[employer]! / Product Type: MEDICARE [id number] documented in this encounter Plan of Treatment Not on file documented as of this encounter Visit Diagnoses Not on filedocumented in this encounter Care Teams Health Insurance Sales Agent Relationship Specialty Start Date End Date Shaun Khanna MD PCP - General Internal Medicine 12/01/14 10/05/15 Nicky Haynes MD PCP - General Internal Medicine 10/06/15 04/19/20 [facility], Pcp PCP - General Internal Medicine 04/20/20 documented as of this encounter
--- OUTSIDE RECORDS SUMMARY | 2025-01-04 11:03 | XMS_ITS | Encounter Summary ---
Author Organization [facility] Address [address] [place] [address] Care Team Providers Care Plate Furnace Operator Name Role Phone Luis Oseguera MD Primary Care Provider Unavail able Natalie Khanna MD Primary Care Provider Nicky Joshi MD Primary Care Provider Unav ailable [facility], Pcp Primary Care Provider Unavailmercedes e Encounter Details Date Type Department Care Team Description 08/30/2014 Relocation Coordinator Report Medical Records [address] [place] [address] Jorge Thompson MD Social History Tobacco Use Types Packs/Day [...] filedocumented in this encounter Care Teams Plate Furnace Operator Relationship Specialty Start Date End Date Luis Oseguera MD PCP - General Internal Medicine 03/20/13 11/30/14 Natalie Khanna MD PCP - General Internal Medicine 12/01/14 10/05/15 Nicky Haynes MD PCP - General Internal Medicine 10/06/15 04/19/20 [facility], Pcp PCP - General Internal Medicine 04/20/20 documented as of this encounter
--- OUTSIDE RECORDS SUMMARY | 2025-01-04 11:03 | XMS_ITS | Encounter Summary ---
Author Organization [facility] Address [address] [place] [address] Care Team Providers Care Property Field Inspector Name Role Phone Luis Oseguera MD Primary Care Provider Unavail able Natalie Khanna MD Primary Care Provider Nicky Joshi MD Primary Care Provider Unav ailable [facility], Pcp Primary Care Provider Unavailmercedes e Encounter Details Date Type Department Care Team Description 10/11/2014 Laboratory Development Technician Report Medical Records [address] [place] [address] Desilets, Demetrio Olson MD Social History Tobacco [...] on filedocumented in this encounter Care Teams Property Field Inspector Relationship Specialty Start Date End Date Luis Oseguera MD PCP - General Internal Medicine 03/20/13 11/30/14 Natalie Khanna MD PCP - General Internal Medicine 12/01/14 10/05/15 Nicky Haynes MD PCP - General Internal Medicine 10/06/15 04/19/20 [facility], Pcp PCP - General Internal Medicine 04/20/20 documented as of this encounter
--- OUTSIDE RECORDS SUMMARY | 2025-01-04 11:03 | XMS_ITS | Encounter Summary ---
Author Organization [facility] Address [address] [place] [address] Care Team Providers Care Fitness Floor Attendant Name Role Phone Natalie Khanna MD Primary Care Provider Nicky Joshi MD [facility] Provider [facility] elda Encounter Details Date Type Department Care Team Description 01/14/2015 Theatre Manager Report Medical Records [address] [place] [address] Flaco Aguirre MD Social History Tobacco Use Types Packs/Day [...] on filedocumented in this encounter Care Teams Fitness Floor Attendant Relationship Specialty Start Date End Date Natalie Khanna MD PCP - General Internal Medicine 12/01/14 10/05/15 Nicky Haynes MD PCP - General Internal Medicine 10/06/15 04/19/20 [facility], Pcp PCP - General Internal Medicine 04/20/20 documented as of this encounter
--- OUTSIDE RECORDS SUMMARY | 2025-01-04 11:03 | XMS_ITS | Encounter Summary ---
Author Organization [facility] Address [address] [place] [address] Care Team Providers Care Pharmacy Care Coordinator Name Role Phone Nicky Haynes MD Primary Care Provider [facility], Pcp Primary Care Provider Unavailabl e Reason for Visit * Reason Onset Date Comments Faxed Refill 12/30/2019 Encounter Details Date Type Department Care Team Description 12/30/2019 Refill Adult Medicine [address] [address] Nicky Haynes MD Faxed Refill Social History Tobacco Use Types Packs/Day Years Used Date Smoking Tobacco: Every Day Cigarettes 1 40 Smokeless Tobacco: Current Comments:smokes 1 ppd Alcohol Use Standard Drinks/Week Comments No 0 (1 standard drink = 0.6 oz pure alcohol) occasional alcohol use, 1 time a month about 1 beer Sex Assigned at Date Recorded Not on file COVID-19 Exposure Response Date Recorded In the last month, have you been in contact with someone who was confirmed or suspected to have Coronavirus / COVID-19? No / Unsure 12/16/2019 10:05 AM EDT documented as of this encounter Miscellaneous Notes * Telephone Encounter - Emile Galindo M.A. - 12/30/2019 3:00 PM EDT Last office visit 9.2.20 Lab Results Component Value Date NA 131 09/10/2019 K 4.4 09/10/2019 CO2 26 09/10/2019 CL 100 09/10/2019 BUN 10 09/10/2019 CREAT 0.94 09/10/2019 GLU 108 09/10/2019 CA 9.0 09/10/2019 GFR 60 09/10/2019 * Telephone Encounter - Danielle Karley - 12/30/2019 11:47 AM EDT Patient would like script to be: E-PRESCRIBED/FAXED TO PHARMACY WHEN WAS THE PATIENT'S LAST APPOINTMENT IN ADULT MEDICINE? 12/16/19 WHEN WAS THE LAST TIME THE PATIENT SAW THEIR PCP? 09/22/19 Does patient have an upcoming appointment? No (THE MEDICATION REQUESTED IS ON THE MED [...] N/A Patients current insurance carrier is: Payor: [facility] MCR / Plan: ONE CARE [facility] / Product Type: HMO [id number] documented in this encounter Plan of Treatment Not on file documented as of this encounter Visit Diagnoses Not on filedocumented in this encounter Care Teams Pharmacy Care Coordinator Relationship Specialty Start Date End Date Nicky Haynes MD PCP - General Internal Medicine 10/06/15 04/19/20 [facility], Pcp PCP - General Internal Medicine 04/20/20 documented as of this encounter
--- OUTSIDE RECORDS SUMMARY | 2025-01-04 11:03 | XMS_ITS | Encounter Summary ---
Author Organization [facility] Address [address] [place] [address] Care Team Providers Care Contractor General Building Name Role Phone Natalie Khanna MD Primary Care Provider Nicky Joshi MD [facility] Primary Care Provider [facility] elda Encounter Details Date Type Department Care Team Description 04/26/2015 Nursing Informatics Analyst Report Medical Records [address] [place] [address] Cammie Benites Social History Tobacco Use Types [...] on filedocumented in this encounter Care Teams Contractor General Building Relationship Specialty Start Date End Date Natalie Khanna MD PCP - General Internal Medicine 12/01/14 10/05/15 Nicky Haynes MD PCP - General Internal Medicine 10/06/15 04/19/20 [facility], Pcp PCP - General Internal Medicine 04/20/20 documented as of this encounter
--- OUTSIDE RECORDS SUMMARY | 2025-01-04 11:03 | XMS_ITS | Encounter Summary ---
[facility] Address [address] [place] [address] Care Team Providers Care Apprentice Funeral Director Name Role Phone aNtalie Khanna MD Primary Care Provider Nicky Joshi MD Primary Care [facility] Primary [facility] Provider [facility] elda Encounter Details Date Type Department Care Team Description 03/07/2015 Test And Research Reactor Operator Report Medical Records [address] [place] [address] Desilets, Demetrio Olson MD Social History Tobacco [...] filedocumented in this encounter Care Teams Apprentice Funeral Director Relationship Specialty Start Date End Date Natalie Khanna MD PCP - General Internal Medicine 12/01/14 10/05/15 Nicky Haynes MD PCP - General Internal Medicine 10/06/15 04/19/20 [facility], Pcp PCP - General Internal Medicine 04/20/20 documented as of this encounter
--- OUTSIDE RECORDS SUMMARY | 2025-01-04 11:03 | XMS_ITS | Encounter Summary ---
Author Organization [facility] Address [address] [place] [address] Care Team Providers Care Reading Recovery Teacher Name Role Phone Natalie Khanna MD Primary Care Provider Nicky Joshi MD Primary Care Provider Ryan miranda [facility], Pcp [facility] Encounter Details Date Type Department Care Team Description 03/23/2015 Controlled Substance Contract with Plan Medical Records [address] [place] [id number] Abstract, Provider Social History Tobacco Use Types [...] on filedocumented in this encounter Care Teams Reading Recovery Teacher Relationship Specialty Start Date End Date Natalie Khanna MD PCP - General Internal Medicine 12/01/14 10/05/15 Nicky Haynes MD PCP - General Internal Medicine 10/06/15 04/19/20 [facility], Pcp PCP - General Internal Medicine 04/20/20 documented as of this encounter
== END 2025-01-04 10:54 | disposition home or self-care (01) ==
PROVIDERS: PCP Nurse Practitioner Family; Visit Provider Nurse Practitioner Family
DX: G43.711 Chronic migraine without aura, intractable, with status migrainosus (principal); G43.109 Migraine with aura, not intractable, without status migrainosus; G43.911 Migraine, unspecified, intractable, with status migrainosus; G44.209 Tension-type headache, unspecified, not intractable
CPT/HCPCS: 99214

== ENCOUNTER → 2025-01-04 09:21 | Outpatient (BNVA) | payer OTHER, SELFPAY | PROVIDERS: PCP Nurse Practitioner Family; Visit Provider Nurse Practitioner Family | DX: G43.711 Chronic migraine without aura, intractable, with status migrainosus (principal) | CPT/HCPCS: 99212 ==

== ENCOUNTER 2025-03-10 13:54 | Outpatient (REF) | payer OTHER, SELFPAY ==
--- OUTSIDE RECORDS SUMMARY | 2025-03-10 17:21 | XMS_ITS | Encounter Summary ---
[facility] Organization [facility] Address [address] [place] [address] Care Team Providers Care Mold Capper Name Role Phone Nicky Haynes MD Primary Care Provider Ryan Lizama, Pcp Primary Care Provider [facility] Encounter Details Date Type Department Care Team Description 05/23/2018 Fence Gate Assembler Report Medical Records [address] [place] [address] Annelise Dockery MD Social History Tobacco Use [...] on filedocumented in this encounter Care Teams Mold Capper Relationship Specialty Start Date End Date Nicky Haynes MD PCP - General Internal Medicine 10/06/15 04/19/20 Community, Pcp PCP - General Internal Medicine 04/20/20 documented as of this encounter
--- OUTSIDE RECORDS SUMMARY | 2025-03-10 17:21 | XMS_ITS | Encounter Summary ---
Author Organization [facility] Address [address] [place] [address] Care Team Providers Care Product Test Specialist Name Role Phone Nicky Haynes MD Primary Care Provider Ryan Lizama, Pcp Primary Care Provider Sebastian schroeder Encounter Details Date Type Department Care Team Description 08/17/2018 Hospital Medical Records [address] [place] [address] Jony Haines Social History Tobacco Use Types [...] on filedocumented in this encounter Care Teams Product Test Specialist Relationship Specialty Start Date End Date Nicky Haynes MD PCP - General Internal Medicine 10/06/15 04/19/20 Community, Pcp PCP - General Internal Medicine 04/20/20 documented as of this encounter
--- OUTSIDE RECORDS SUMMARY | 2025-03-10 17:21 | XMS_ITS | Encounter Summary ---
Author Organization [facility] Address [address] [place] [address] Care Team Providers Care Congressional Aide Name Role Phone Nicky Haynes MD Primary Care Provider Ryan Lizama, Pcp [facility] Encounter Details Date Type Department Care Team Description 04/13/2018 Mortgage Advisor Report Medical Records [address] [place] [address] Annelise Dockery MD Social History Tobacco Use [...] on filedocumented in this encounter Care Teams Congressional Aide Relationship Specialty Start Date End Date Nicky Haynes MD PCP - General Internal Medicine 10/06/15 04/19/20 Community, Pcp PCP - General Internal Medicine 04/20/20 documented as of this encounter
--- OUTSIDE RECORDS SUMMARY | 2025-03-10 17:21 | XMS_ITS | Encounter Summary ---
Author Organization [facility] Address [address] [place] [address] Care Team Providers Care Nutrition And Dietetics Instructor Name Role Phone Nicky Haynes MD Primary Care Provider Rayn Lizama, Pcp Primary [facility] Encounter Details Date Type Department Care Team Description 09/25/2018 Strap Cutter Report Medical Records [address] [place] [id number] Adam Briceno MD Social History Tobacco Use [...] on filedocumented in this encounter Care Teams Nutrition And Dietetics Instructor Relationship Specialty Start Date End Date Nicky Haynes MD PCP - General Internal Medicine 10/06/15 04/19/20 Community, Pcp PCP - General Internal Medicine 04/20/20 documented as of this encounter
--- OUTSIDE RECORDS SUMMARY | 2025-03-10 17:21 | XMS_ITS | Encounter Summary ---
Author Organization [facility] Address [address] [place] [address] Care Team Providers Care Credit Analyst Name Role Phone Luis Oseguera MD Primary Care Provider Unavail able Natalie Khanna MD Primary Care Provider Nicky Joshi MD Primary Care Provider Unav ailable [facility], Pcp Primary Care Provider Unavailmercedes e Encounter Details Date Type Department Care Team Description 04/20/2014 Chief Design Drafter Report Medical Records [address] [place] [phone] Kaleb Machuca Social History Tobacco Use Types [...] on filedocumented in this encounter Care Teams Credit Analyst Relationship Specialty Start Date End Date Luis Oseguera MD PCP - General Internal Medicine 03/20/13 11/30/14 Natalie Khanna MD PCP - General Internal Medicine 12/01/14 10/05/15 Nicky Haynes MD PCP - General Internal Medicine 10/06/15 04/19/20 [facility], Pcp PCP - General Internal Medicine 04/20/20 documented as of this encounter
--- OUTSIDE RECORDS SUMMARY | 2025-03-10 17:21 | XMS_ITS | Encounter Summary ---
Author Organization [facility] Address [address] [place] [address] Care Team Providers Care Portable Machine Cutter Name Role Phone Luis Oseguera MD Primary Care Provider Unavail able Natalie Khanna MD Primary Care Provider Tariqa Nicky James MD Primary [facility] Primary Care Provider Unavailabl e Reason for Visit * Reason Onset Date Comments Hemming And Tacking Machine Operator Feedback 05/04/2014 Sleep Medicine N eurology Encounter Details Date Type Department Care Team Description 05/04/2014 Telephone Pulmonology [address] [place] [address] Bacilio Wilson MD Hemming And Tacking Machine Operator Feedback (Sleep Medicine Neurology) Social History Tobacco Use Types Packs/Day Years [...] * Telephone Encounter - Inocencia Mendoza - 06/29/2014 12:22 PM EDT TRAVSI returned and signed orders faxed to [phone] * Telephone Encounter - Inocencia Mendoza - 05/21/2014 1:27 PM EST TRAVIS mailed to patient for sensitive information * Telephone Encounter - Summer Garcia - 05/04/2014 4:03 PM EST Faxed the Order and the Sleep Medicine Service form to [phone] Notification letter mailed office will contact pt to book appt. DX sleep walking, schizoaffective disorder, RLS and ? KAYKAY Message forwarded to fax notes [phone] documented in this encounter Plan of Treatment Not on file documented as of this encounter Visit Diagnoses Not on filedocumented in this encounter Care Teams Portable Machine Cutter Relationship Specialty Start Date End Date Luis Oseguera MD PCP - General Internal Medicine 03/20/13 11/30/14 Natalie Khanna MD PCP - General Internal Medicine 12/01/14 10/05/15 Nicky Haynes MD PCP - General Internal Medicine 10/06/15 04/19/20 [facility] Pcp PCP - General Internal Medicine 04/20/20 documented as of this encounter
--- OUTSIDE RECORDS SUMMARY | 2025-03-10 17:21 | XMS_ITS | Encounter Summary ---
Author Organization [facility] Address [address] [place] [address] Care Team Providers Care Bone Cooking Operator Name Role Phone Nicky Haynes MD Primary Care Provider Ryan Lizama, Pcp [facility] Encounter Details Date Type Department Care Team Description 11/16/2016 Dispenser Operator Report Medical Records [address] [place] [address] Marleni Olmedo NP Social History Tobacco Use [...] on filedocumented in this encounter Care Teams Bone Cooking Operator Relationship Specialty Start Date End Date Nicky Haynes MD PCP - General Internal Medicine 10/06/15 04/19/20 [facility], Pcp PCP - General Internal Medicine 04/20/20 documented as of this encounter
--- OUTSIDE RECORDS SUMMARY | 2025-03-10 17:21 | XMS_ITS | Encounter Summary ---
Author Organization [facility] Address [address] [place] [address] Care Team Providers Care Teletype Operator Name Role Phone Nicky Haynes MD Primary Care Provider Ryan Lizama, Pcp Primary Care Provider [facility] Encounter Details Date Type Department Care Team Description 08/11/2018 Auto Service Instructor Report Medical Records [address] [place] [address] Jorge Thompson MD Social History Tobacco Use [...] on filedocumented in this encounter Care Teams Teletype Operator Relationship Specialty Start Date End Date Nicky Haynes MD PCP - General Internal Medicine 10/06/15 04/19/20 Community, Pcp PCP - General Internal Medicine 04/20/20 documented as of this encounter
--- OUTSIDE RECORDS SUMMARY | 2025-03-10 17:21 | XMS_ITS | Encounter Summary ---
Author Organization [facility] Address [address] [place] [address] Care Team Providers Care Grocery Shopper Name Role Phone Community, Pcp Primary Care Provider Unavailabl e Reason for Visit * Reason Comments E-prescribe Rx Request Encounter Details Date Type Department Care Team Description 05/02/2020 Refill Adult Medicine - [place] [address] [place] [address] Nicky Haynes MD E-prescribe Rx Request Social History Tobacco Use Types Packs/Day Years [...] encounter Miscellaneous Notes * Telephone Encounter - Amalia Hough - 05/02/2020 8:52 AM EST Pcp community documented in this encounter Plan of Treatment Not on file documented as of this encounter Visit Diagnoses Not on filedocumented in this encounter Care Teams Grocery Shopper Relationship Specialty Start Date End Date Community, Pcp PCP - General Internal Medicine 04/20/20 documented as of this encounter
--- OUTSIDE RECORDS SUMMARY | 2025-03-10 17:21 | XMS_ITS | Encounter Summary ---
Author Organization [facility] Address [address] [place] [address] Care Team Providers Care Container Filler Name Role Phone Nicky Haynes MD Primary Care Provider Ryan Lizama, Pcp Primary [facility] Encounter Details Date Type Department Care Team Description 08/21/2018 Remote Encoding Center Manager Report Medical Records [address] [place] [address] Adam Briceno MD Social History Tobacco Use [...] on filedocumented in this encounter Care Teams Container Filler Relationship Specialty Start Date End Date Nicky Haynes MD PCP - General Internal Medicine 10/06/15 04/19/20 Community, Pcp PCP - General Internal Medicine 04/20/20 documented as of this encounter
--- OUTSIDE RECORDS SUMMARY | 2025-03-10 17:21 | XMS_ITS | Clinical Summary ---
Author Organization [facility] Address [address] [place] [address] Care Team Providers Care Supervisor Frame Assembly Name Role Phone Community, Pcp Primary Care Provider Unavailabl e Allergies Active Allergy Reactions Severity Noted Date Comments Cefaclor Hives/Urticaria 03/25/2013 Penicillins Hives/Urticaria 03/25/2013 Succinylcholine 03/25/2013 Sulfa Drugs Hives/Urticaria 03/25/2013 Medications Medication Sig Dispensed Refills Start Date End Date Status nitrofurantoin (MACRODANTIN) 50 MG capsule Take 50 mg by mouth daily. 0 Active desvenlafaxine (PRISTIQ) 100 MG 24 hr tablet Take 100 mg by mouth daily. 0 Active polyethylene glycol (GLYCOLAX) powder Take 17 g by mouth daily for 30 doses. 510 g 11 06/12/2018 Active ammonium lactate (AMLACTIN) 12 % cream Apply to dry skin daily 385 g 3 06/12/2018 Active ALBUTEROL SULFATE (PROAIR HFA) 108 (90 BASE) MCG/ACT Aero Soln Inhale 2 Puffs into the lungs every 4 hours as needed for Cough or Wheezing. 17 g 5 06/12/2018 Active ropinirole (REQUIP) 2 MG tablet Take 1 Tab by mouth at bedtime. 90 Tab 1 06/12/2018 Active Foot Care Products (ALL GEL BUNION TOE INVESTMENT ACCOUNTING CLERK) MiscIndications:Hallu x valgus (acquired), right foot 1 Each by Does not apply route daily. 1 Each 0 12/02/2018 Active amitriptyline (ELAVIL) 100 MG tablet Take 1 Tab by mouth at bedtime. 30 Tab 11 01/20/2019 Active clonazepam (KLONOPIN) 2 MG tablet Take 1 Tab by mouth 3 times daily as needed for Anxiety. (Rx'd by her Psych provider at [facility]) 30 Tab 5 01/20/2019 Active SODIUM CHLORIDE OR Take by mouth. 0 Ac tive Cholecalciferol (VITAMIN D3) 1000 units Cap TAKE 1 CAPSULE BY MOUTH DAILY 30 Cap 5 09/25/2019 Active diltiazem (CARDIZEM CD) 240 MG 24 hr capsule Take 1 Cap by mouth daily. 90 Cap 1 10/01/2019 Active gabapentin (NEURONTIN) 600 MG tablet TAKE 1 TABLET BY MOUTH EVERY MORNING AND 1 TABLET EVERY EVENING AND 2 AT BEDTIME 360 Tab 1 10/20/2019 Active baclofen (LIORESAL) 10 MG tablet Take 1 Tab by mouth 4 times daily as needed (muscle spasms). 120 Tab 4 12/02/2019 Active Meclizine HCl 25 MG Tab TAKE 1/2 TABLET BY MOUTH THREE TIMES DAILY NEEDED FOR DIZZINESS OR VERTIGO 30 Tab 0 12/04/2019 Active meloxicam (MOBIC) 15 MG tablet TAKE 1 TABLET BY MOUTH DAILY 90 Tab 1 12/07/2019 Active Mirabegron ER 25 MG TABLET SR 24 HR Take 1 Tab by mouth at bedtime. 0 Active atorvastatin (LIPITOR) 40 MG tablet TAKE 1 TABLET BY MOUTH DAILY 90 Tab 1 12/22/2019 Active pantoprazole (PROTONIX) 40 MG tablet Take 1 Tab by mouth daily. 90 Tab 1 12/30/2019 Active loratadine (CLARITIN) 10 MG tablet Take 1 Tab by mouth daily. 90 Tab 1 01/05/2020 Active FEROSUL 325 (65 Fe) MG tablet TAKE 1 TABLET BY MOUTH DAILY 30 Tab 5 01/22/2020 Active Umeclidinium [place] 62.5 MCG/INH AEROSOL POWDER,BREATH ACTIVATED Inhale 1 Puff into the lungs daily. 0 Active tramadol (ULTRAM) 50 MG tablet Take 50 mg by mouth. Every 4-6 hours prn pain 0 Active levothyroxine (SYNTHROID, LEVOTHROID) 175 MCG tablet Take 175 mcg by mouth daily. 0 Active Active Problems Problem Noted Date Tobacco use disorder 04/20/2019 Pyometrium 04/13/2019 Thickened endometrium 04/13/2019 Last Assessment & Plan: Procedure Note Indication [...] when available. GUY MERRITT MD Postmenopausal bleeding 01/21/2019 Last Assessment & Plan: Resolved since biopsy x 2 with weakly proliferative endometrium. Discussed possible treatment with progestin, but could observe. Given her cramping, however, will obtain repeat US to ensure no further fluid collection in uterus. No evidence of endometritis on exam. She agreed and will schedule US. Will review when results available. Screening examination for venereal disea se 01/21/2019 Last Assessment & Plan: Testing performed today including serum and genital samples per pt request. Not tested for Hep C as already known positive. I encouraged safe sex practices for the future to prevent STI. Will contact her with results when available. 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 Migraine 04/07/2018 Normochromic normocytic anemia 8 Familial hypercholesterolemia 10/08/2017 Dyskinesia of esophagus 11/16/2016 Overview: normal EGD 11/15/[address] Coburn, functional dysphagia PLMD (periodic limb movement disorder) 0 11/05/2016 Skin cancer, basal cell 02/22/2016 Overview: Face and trunk in past. GE reflux 11/08/2015 Overview: Pt no showed barium swallow at [facility] 12/02/15 10:30am. Hyperlipidemia 03/23/2015 Overview: Normal nuclear stress test 08/14/16 Obstructive sleep apnea AHI 6 (2014 AHI 10) 12/03/2014 Overview: [facility]BMG Polysomnogram: Date 10/30/2016; SE 58%; SM 70%; REM 0%; RDI 6 (AHI 6), Central apneas 2; Obstructive apneas 19; Mixed apneas 1; hypopneas 0; RERAs 2; average oxygen saturation 96% (lowest 93% - without saturations <88% for 5% or more of study); PLMs 111. Abnormal mammogram 08/14/2013 Overview: 02/18 microcal and sterotipic biopsy,fibrocystic changes Hypothyroid 05/11/2013 Overview: Minimal symptoms Hepatitis C 05/08/2013 Overview: Per patient viral load undetectable. [facility] gastroenterology 12/27 egd nad-dr escobedo 12/27-colonoscopy small internal hemmrhoids Chronic back pain 04/17/2013 Overview: Dr oswald previous pcp 03/27-Old compression fractures versus prominent Schmorl's nodes at the superior endplates of L1 and L5. At L4-5 and L5-S1, there is a small central distribution superimposed on generalized disc bulging. Facet arthropathy at L4-5. Degenerative disc disease and chronic discogenic disease at L5-S1. There is no focal nerve root compression. Asthma 04/17/2013 Schizoaffective disorder Overview: cared at [facility] brain Osteoporosis Overview: on once a year injection Bone Density 11/12/18. Recommend 2 year repeat Immunizations Name Administration Dates Next Due Influenza (> 6 Months) 03/12/2016,2014,01/28/2014, 014 Influenza Vaccine-preservati ve Free-quadrivalent 4 Years 12/25/2018 Family History Medical History Relation Name Comments CA Basal Cell Father Cancer, 2018 Father bladder ca CA Breast Father's side aunt CAD 2018 Mother Heart valve Mother CA Basal Cell Sister Diabetes Son Relation Name Status Comments [...] Assigned at Date Recorded Not on file Last Filed Vital Signs Vital Sign Reading Time Taken Comments Blood Pressure 120/72 03/18/2020 1:32 PM EST Pulse 72 03/18/2020 1:32 PM EST Temperature 36.9 C (98.4 F) 10/14/2019 9:46 AM EDT Respiratory Rate 16 03/18/2020 1:32 PM EST Oxygen Saturation 94% 10/14/2019 9:46 AM EDT Inhaled Oxygen Concentration - - Weight 71.2 kg (157 lb) 01/25/2020 1:25 PM EDT Height 152.4 cm (5') 01/25/2020 1:25 PM EDT Body Mass Index 30.66 01/25/2020 1:25 PM EDT Plan of Treatment Health Maintenance Due Date Last Done Comments Covid-19 Vaccine (#1) 1955 SHINGLES VACCINE (1 of 2) 2007 DEPRESSION SCREEN 10/26/2017 10/26/2016, , 07/29/2014, Additional history exists Lung Cancer Screening (Low Dose CT) 06/14/2020 06/15/2019 MAMMOGRAM 09/27/2020 09/28/2019, 03/15, 09/09/2018, Additional history exists BONE DENSITY SCREENING 2022 11/12/2018 PNEUMOCOCCAL VACCINE (2 - PCV) 2022 04/16/2018 TOBACCO CHECK/ADVISE 01/24/2022 01/25/2020, 01/21/2020, 01/04/2020, Additional history exists CHOLESTEROL SCREENING 11/22/2023 11/21/2018 , 12/30/2017, 11/06/2017, Additional history exists BMI CHECK/ADVISE 04/15/2024 04/04/2020, , 01/25/2020, Additional history exists INFLUENZA (#1) 2024 12/25/2018, 05/2018, 03/12/2016, Additional history exists DTAP/TDAP/TD (2 - Td or Tdap) 01/21/2025 01/21/2015 (Allergic) COLON CANCER SCREENING 08/31/2025 , 01/07/2014, 12/29/2013 (External Completion), Additional history exists HEPATITIS C SCREENING Addressed 05/08/2013 (Excepti on) Overridden with the intention of not completing the topic Care Teams Supervisor Frame Assembly Relationship Specialty Start Date End Date Community, Pcp PCP - General Internal Medicine 04/20/20
--- OUTSIDE RECORDS SUMMARY | 2025-03-10 17:21 | XMS_ITS | Encounter Summary ---
Author Organization [facility] Address [address] [place] [address] Care Team Providers Care Director Software Quality Assurance Name Role Phone Nicky Haynes MD Primary Care Provider Ryan Lizama, Pcp Primary Care Provider Sebastian schroeder Encounter Details Date Type Department Care Team Description 09/20/2018 Hospital Medical Records [address] [place] [address] Cayetano Godinez Social History Tobacco Use Types Packs/Day Years [...] filedocumented in this encounter Care Teams Director Software Quality Assurance Relationship Specialty Start Date End Date Nicky Haynes MD PCP - General Internal Medicine 10/06/15 04/19/20 Community, Pcp PCP - General Internal Medicine 04/20/20 documented as of this encounter
--- OUTSIDE RECORDS SUMMARY | 2025-03-10 17:21 | XMS_ITS | Encounter Summary ---
Author Organization [facility] Address [address] [place] [address] Care Team Providers Care Cleaner And Trimmer Name Role Phone Nicky Haynes MD Primary Care Provider Ryan Lizama, Pcp [facility] Encounter Details Date Type Department Care Team Description 04/25/2016 Release of Information Medical Records [address] [place] [phone] Abstract, Provider Social History Tobacco Use Types [...] on filedocumented in this encounter Care Teams Cleaner And Trimmer Relationship Specialty Start Date End Date Nicky Haynes MD PCP - General Internal Medicine 10/06/15 04/19/20 Community, Pcp PCP - General Internal Medicine 04/20/20 documented as of this encounter
--- OUTSIDE RECORDS SUMMARY | 2025-03-10 17:21 | XMS_ITS | Encounter Summary ---
Author Organization [facility] Address [address] [place] [address] Care Team Providers Care Airplane Pilot Helper Name Role Phone Luis Oseguera MD Primary Care Provider Unavail able Natalie Khanna MD Primary Care Provider Nicky Joshi MD Primary Care Provider Unav ailable [facility], [facility]cp Primary Care Provider Unavailmercedes e Encounter Details Date Type Department Care Team Description 03/18/2014 Salvager Helper Report Medical Records [address] [place] [id number] Flaco Houser Social History Tobacco Use Types [...] on filedocumented in this encounter Care Teams Airplane Pilot Helper Relationship Specialty Start Date End Date Luis Oseguera MD PCP - General Internal Medicine 03/20/13 11/30/14 Natalie Khanna MD PCP - General Internal Medicine 12/01/14 10/05/15 Nicky Haynes MD PCP - General Internal Medicine 10/06/15 04/19/20 [facility], Pcp PCP - General Internal Medicine 04/20/20 documented as of this encounter
--- OUTSIDE RECORDS SUMMARY | 2025-03-10 17:21 | XMS_ITS | Encounter Summary ---
Author Organization [facility] Address [address] [place] [address] Care Team Providers Care Surfacing Technician Name Role Phone Nicky Haynes MD Primary Care Provider [facility], Pcp Primary Care Provider Unavailabl e Reason for Visit * Reason Onset Date Comments hospital follow up 09/22/2018 Encounter Details Date Type Department Care Team Description 09/22/2018 Telephone Adult Medicine [facility] [address] [place] [address] Nicky Haynes MD hospital follow up Social [...] 09.26.18 @ 1:30 with PCP for a [facility] . Date of discharge [...] [facility] Date of visit: 09/14/18 Was this [...] on filedocumented in this encounter Care Teams Surfacing Technician Relationship Specialty Start Date End Date Nicky Haynes MD PCP - General Internal Medicine 10/06/15 04/19/20 [facility], Pcp PCP - General Internal Medicine 04/20/20 documented as of this encounter
--- OUTSIDE RECORDS SUMMARY | 2025-03-10 17:21 | XMS_ITS | Encounter Summary ---
Author Organization [facility] Address [address] [place] [address] Care Team Providers Care Preschool Assistant Name Role Phone Luis Oseguera MD Primary Care Provider Unavail able Natalie Khanna MD Primary Care Provider Nicky Joshi MD Primary Care Provider Unav ailable [facility], Pcp Primary Care Provider Unavailmercedes e Encounter Details Date Type Department Care Team Description 04/09/2014 CUPOLA PATCHER HELPER/MassPat Report Medical Records [address] [place] [address] Abstract, Provider Social History Tobacco Use Types [...] on filedocumented in this encounter Care Teams Preschool Assistant Relationship Specialty Start Date End Date Luis Oseguera MD PCP - General Internal Medicine 03/20/13 11/30/14 Natalie Khanna MD PCP - General Internal Medicine 12/01/14 10/05/15 Nicky Haynes MD PCP - General Internal Medicine 10/06/15 04/19/20 [facility], Pcp PCP - General Internal Medicine 04/20/20 documented as of this encounter
--- OUTSIDE RECORDS SUMMARY | 2025-03-10 17:21 | XMS_ITS | Encounter Summary ---
Author Organization [facility] Address [address] [place] [address] Care Team Providers Care Marine Cargo Surveyor Name Role Phone Nicky Haynes MD Primary Care Provider Ryan Lizama, Pcp Primary Care Provider Sebastian schroeder Encounter Details Date Type Department Care Team Description 06/13/2018 Electromechanical Assembly Technician Report Medical Records [address] [place] [address] Michelle Jalloh PA-C Social History Tobacco Use [...] on filedocumented in this encounter Care Teams Marine Cargo Surveyor Relationship Specialty Start Date End Date Nicky Haynes MD PCP - General Internal Medicine 10/06/15 04/19/20 [facility], Pcp PCP - General Internal Medicine 04/20/20 documented as of this encounter
--- OUTSIDE RECORDS SUMMARY | 2025-03-10 17:21 | XMS_ITS | Encounter Summary ---
Author Organization [facility] Address [address] [place] [address] Care Team Providers Care Rice Dryer Mechanic Name Role Phone Luis Oseguera MD Primary Care Provider Unavail able Natalie Khanna MD Primary Care Provider Nicky Joshi MD Primary Care Provider Unav ailable [facility], Pcp Primary Care Provider Unavailmercedes e Encounter Details Date Type Department Care Team Description 10/26/2013 Instructor Of Spanish Report Medical Records [address] [place] [address] Social History Tobacco Use Types Packs/Day Years Used Date Smoking Tobacco: Every Day Cigarettes 1 40 Comments:trying to cut down Alcohol Use Standard [...] on filedocumented in this encounter Care Teams Rice Dryer Mechanic Relationship Specialty Start Date End Date Luis Oseguera MD PCP - General Internal Medicine 03/20/13 11/30/14 Natalie Khanna MD PCP - General Internal Medicine 12/01/14 10/05/15 Nicky Haynes MD PCP - General Internal Medicine 10/06/15 04/19/20 [facility], Pcp PCP - General Internal Medicine 04/20/20 documented as of this encounter
--- OUTSIDE RECORDS SUMMARY | 2025-03-10 17:21 | XMS_ITS | Encounter Summary ---
Author Organization [facility] Address [address] [place] [address] Care Team Providers Care Waiter/Waitress Tourist Class Name Role Phone Luis Oseguera MD Primary Care Provider Unavail able Natalie Khanna MD Primary Care Provider Nicky Joshi MD Primary Care Provider Unav ailable [facility], Pcp Primary Care Provider Unavailmercedes e Encounter Details Date Type Department Care Team Description 12/29/2013 Publications Designer Report Medical Records [address] [place] [address] Adam Briceno MD Social History Tobacco Use [...] on filedocumented in this encounter Care Teams Waiter/Waitress Tourist Class Relationship Specialty Start Date End Date Luis Oseguera MD PCP - General Internal Medicine 03/20/13 11/30/14 Natalie Khanan MD PCP - General Internal Medicine 12/01/14 10/05/15 Nicky Haynes MD PCP - General Internal Medicine 10/06/15 04/19/20 [facility], Pcp PCP - General Internal Medicine 04/20/20 documented as of this encounter
--- OUTSIDE RECORDS SUMMARY | 2025-03-10 17:21 | XMS_ITS | Encounter Summary ---
Author Organization [facility] Address [address] [place] [address] Care Team Providers Care Cold Food Packer Name Role Phone [facility], Pcp Primary Care Provider Unavailabl e Encounter Details Date Type Department Care Team Description 05/12/2020 Grounds Keeper Report Medical Records [address] [place] [address] Abstract, Provider Social History Tobacco Use Types [...] on filedocumented in this encounter Care Teams Cold Food Packer Relationship Specialty Start Date End Date [facility], Pcp PCP - General Internal Medicine 04/20/20 documented as of this encounter
--- OUTSIDE RECORDS SUMMARY | 2025-03-10 17:21 | XMS_ITS | Encounter Summary ---
Author Organization [facility] Address [address] [place] [address] Care Team Providers Care Outside Medical Sales Representative Name Role Phone [facility], Pcp Primary Care Provider Unavailabl e Encounter Details Date Type Department Care Team Description 05/05/2020 Orders Only Adult Medicine [address] [address] Fermin Dominguez MD [address] [place] [address] Screening for malignant neoplasm of breast Social [...] unspecified documented in this encounter Care Teams Outside Medical Sales Representative Relationship Specialty Start Date End Date [facility], Pcp PCP - General Internal Medicine 04/20/20 documented as of this encounter
--- OUTSIDE RECORDS SUMMARY | 2025-03-10 17:22 | XMS_ITS | Encounter Summary ---
Author Organization [facility] Address [address] [place] [address] Care Team Providers Care Network Relay Tester Name Role Phone Luis Oseguera MD Primary Care Provider Unavail able Natalie Khanna MD Primary Care Provider UnavailNicky Bravo MD Primary Care Provider Unav ailable [facility], Pcp Primary Care Provider Unavailmercedes e Encounter Details Date Type Department Care Team Description 04/20/2013 KENO TERMINAL OPERATOR/MassPat Report Medical Records [address] [place] [address] Abstract, Provider Social History Tobacco Use Types [...] on filedocumented in this encounter Care Teams Network Relay Tester Relationship Specialty Start Date End Date Luis Oseguera MD PCP - General Internal Medicine 03/20/13 11/30/14 Natalie Khanna MD PCP - General Internal Medicine 12/01/14 10/05/15 Nicky Haynes MD PCP - General Internal Medicine 10/06/15 04/19/20 [facility], Pcp PCP - General Internal Medicine 04/20/20 documented as of this encounter
--- OUTSIDE RECORDS SUMMARY | 2025-03-10 17:22 | XMS_ITS | Encounter Summary ---
Author Organization [facility] Address [address] [place] [address] Care Team Providers Care Painting Department Supervisor Name Role Phone Nicky Haynes MD Primary Care Provider [facility], Pcp Primary Care Provider Unavailabl e Reason for Visit * Reason Onset Date Comments Error 08/13/2017 open in error Encounter Details Date Type Department Care Team Description 08/13/2017 Refill Adult Medicine [facility] [address] [place] [address] Nicky Haynes MD Error (open in error ) Social History Tobacco Use Types Packs/Day Years [...] on filedocumented in this encounter Care Teams Painting Department Supervisor Relationship Specialty Start Date End Date Nicky Haynes MD PCP - General Internal Medicine 10/06/15 04/19/20 [facility], Pcp PCP - General Internal Medicine 04/20/20 documented as of this encounter
--- OUTSIDE RECORDS SUMMARY | 2025-03-10 17:22 | XMS_ITS | Encounter Summary ---
Author Organization [facility] Address [address] [place] [address] Care Team Providers Care Dough Cutter Name Role Phone Nicky Haynes MD Primary Care Provider Ryan Lizama, Pcp Primary Care Provider Sebastian schroeder Encounter Details Date Type Department Care Team Description 07/17/2016 Financial Data Analyst Report Medical Records [address] [place] [address] Cammie Benites Social History Tobacco Use Types [...] on filedocumented in this encounter Care Teams Dough Cutter Relationship Specialty Start Date End Date Nicky Haynes MD PCP - General Internal Medicine 10/06/15 04/19/20 [facility], Pcp PCP - General Internal Medicine 04/20/20 documented as of this encounter
--- OUTSIDE RECORDS SUMMARY | 2025-03-10 17:22 | XMS_ITS | Encounter Summary ---
Author Organization [facility] Address [address] [place] [address] Care Team Providers Care Director Utilization Management Name Role Phone Nicky Haynes MD Primary Care Provider Ryan miranda [facility], Pcp Primary Care Provider [facility] Encounter Details Date Type Department Care Team Description 11/05/2016 Orders Only Medical Records [address] [place] [address] Bacilio Wilson MD Social History Tobacco Use [...] filedocumented in this encounter Care Teams Director Utilization Management Relationship Specialty Start Date End Date Nicky Haynes MD PCP - General Internal Medicine 10/06/15 04/19/20 [facility], Pcp PCP - General Internal Medicine 04/20/20 documented as of this encounter
--- OUTSIDE RECORDS SUMMARY | 2025-03-10 17:22 | XMS_ITS | Encounter Summary ---
Author Organization [facility] Address [address] [place] [address] Care Team Providers Care Optical Laboratory Mechanic Name Role Phone Natalie Khanna MD Primary Care Provider Nicky Joshi MD Primary Care Provider Ryan [facility], Pcp Primary Care Provider [facility] elda Encounter Details Date Type Department Care Team Description 02/08/2015 Garde Manager Report Medical Records [address] [place] [address] Adam Briceno MD Social History Tobacco Use [...] on filedocumented in this encounter Care Teams Optical Laboratory Mechanic Relationship Specialty Start Date End Date Natalie Khanna MD PCP - General Internal Medicine 12/01/14 10/05/15 Nicky Haynes MD PCP - General Internal Medicine 10/06/15 04/19/20 [facility], Pcp PCP - General Internal Medicine 04/20/20 documented as of this encounter
--- OUTSIDE RECORDS SUMMARY | 2025-03-10 17:22 | XMS_ITS | Encounter Summary ---
Author Organization [employer] [facility] Address [address] [place] [address] Care Team Providers Care Analysis Consultant Name Role Phone Nicky Haynes MD Primary Care Provider Ryan miranda [facility], Pcp Primary Care Provider [facility] e Encounter Details Date Type Department Care Team Description 04/02/2019 Orders Only Medical Records [address] [place] [address] Abstract, Provider Social History Tobacco Use Types [...] Name Priority Date/Time Associated Diagnosis Comments OUTSIDE MAMMO Routine 03/27/2019 documented in this encounter Results * OUTSIDE MAMMO (03/27/2019) Nicky Haynes MD RADIOLOGY documented in this encounter Visit Diagnoses Not on filedocumented in this encounter Care Teams Analysis Consultant Relationship Specialty Start Date End Date Nicky Haynes MD PCP - General Internal Medicine 10/06/15 04/19/20 [facility], Pcp PCP - General Internal Medicine 04/20/20 documented as of this encounter
--- OUTSIDE RECORDS SUMMARY | 2025-03-10 17:22 | XMS_ITS | Encounter Summary ---
Author Organization [facility] Address [address] [place] [address] Care Team Providers Care Family Practice Doctor Name Role Phone Nicky Haynes MD Primary Care Provider Ryan Lizama, Pcp Primary Care Provider [facility]da Encounter Details Date Type Department Care Team Description 02/04/2017 Loader Machine Report Medical Records [address] [place] [address] Jeffrey Berrios MD Social History Tobacco Use [...] on filedocumented in this encounter Care Teams Family Practice Doctor Relationship Specialty Start Date End Date Nicky Haynes MD PCP - General Internal Medicine 10/06/15 04/19/20 [facility], Pcp PCP - General Internal Medicine 04/20/20 documented as of this encounter
--- OUTSIDE RECORDS SUMMARY | 2025-03-10 17:22 | XMS_ITS | Encounter Summary ---
Author Organization [facility] Address [address] [place] [address] Care Team Providers Care Baggage Smasher Name Role Phone Nicky Haynes MD Primary Care Provider Ryan Lizama, Pcp Primary Care Provider Sebastian schroeder Encounter Details Date Type Department Care Team Description 01/22/2016 Business Doc Medical Records [address] [place] [address] Abstract, Provider Social History Tobacco Use Types [...]
--- OUTSIDE RECORDS SUMMARY | 2025-03-10 17:22 | XMS_ITS | Encounter Summary ---
Author Organization [facility] Address [address] [place] [address] Care Team Providers Care Senior Informatica Etl Developer Name Role Phone Nicky Haynes MD Primary Care Provider [facility], Pcp Primary Care Provider Unavailabl e Reason for Referral * Non HORACIO (Urgent) - Authorized/Booked Specialty Diagnoses / Procedures Referred By Contmaria teresa t Referred To Contact Physiatry Diagnoses Closed head injury with concussion, with loss of consciousness of 30 minutes or less, initial encounter Procedures REFERRAL TO PHYSIATRY Delvin Hawk PA-C [address] [place] [id number] [place] [address]/[address] [address] Referral ID Status Reason Start Date Expiration Date V isits Requested Visits Authorized [id number] WITHIN 1 WEEK Authorized/ Booked 10/12/2016 10/12/2017 1 1 Reason for Visit * Reason Onset Date Comments Central Supply Tech Feedback 10/12/2016 Neurology Encounter Details Date Type Department Care Team Description 10/12/2016 Telephone Adult Medicine [address] [address] Delvin Hawk PA-C Central Supply Tech Feedback (Neurology) Social History Tobacco Use Types [...] Please sign new order. Thank you, Vanda Organic Preparation Analyst * Telephone Encounter - Vanda Mensah - 10/12/2016 8:54 AM EDT You placed an Urgent order for Neurology for this paitent. I called [facility] to book appointment. The office called me back today and state that after Reviewd [facility] records he rocommends patient to follow up with concussion clinic. I have pended a new order for you to sign. Thank you, Vanda Organic Preparation Analyst documented in this encounter Plan of Treatment Not on file documented as of this encounter Visit Diagnoses Diagnosis Closed head injury with concussion, with loss of consciousness of 30 minutes or less, initial encounter- Primary documented in this encounter Care Teams Senior Informatica Etl Developer Relationship Specialty Start Date End Date Nicky Haynes MD PCP - General Internal Medicine 10/06/15 04/19/20 [facility], Pcp PCP - General Internal Medicine 04/20/20 documented as of this encounter
--- OUTSIDE RECORDS SUMMARY | 2025-03-10 17:22 | XMS_ITS | Encounter Summary ---
Author Organization [facility] Address [address] [place] [address] Care Team Providers Care Tennis Court Attendant Name Role Phone Nicky Haynes MD Primary Care Provider [facility], Pcp Primary Care Provider Unavailabl e Reason for Visit * Reason Onset Date Comments refill request 10/01/2019 Encounter Details Date Type Department Care Team Description 10/01/2019 Telephone Adult Medicine [address] [address] Nicky Haynes MD refill request Social History [...] EDT sent * Telephone Encounter - Bonny Davis L.P.N. - 10/01/2019 9:26 AM EDT mary [...] N/A Patients current insurance carrier is: Pay[email or web address] / Plan: [facility] / Product Type: HMO [id number] documented in this encounter Plan of Treatment Not on file documented as of this encounter Visit Diagnoses Not on filedocumented in this encounter Care Teams Tennis Court Attendant Relationship Specialty Start Date End Date Nicky Haynes MD PCP - General Internal Medicine 10/06/15 04/19/20 [facility], Pcp PCP - General Internal Medicine 04/20/20 documented as of this encounter
--- OUTSIDE RECORDS SUMMARY | 2025-03-10 17:22 | XMS_ITS | Encounter Summary ---
Author Organization [facility] Address [address] [place] [address] Care Team Providers Care Diesel Powerplant Mechanic Helper Name Role Phone Nicky Haynes MD Primary Care Provider Ryan miranda [facility], Pcp Primary Care Provider [facility] Encounter Details Date Type Department Care Team Description 10/29/2019 Edge Polisher Report Medical Records [address] [place] [address] Social History Tobacco Use Types Packs/Day Years [...] on filedocumented in this encounter Care Teams Diesel Powerplant Mechanic Helper Relationship Specialty Start Date End Date Nicky Haynes MD PCP - General Internal Medicine 10/06/15 04/19/20 [facility], Pcp PCP - General Internal Medicine 04/20/20 documented as of this encounter
--- OUTSIDE RECORDS SUMMARY | 2025-03-10 17:22 | XMS_ITS | Encounter Summary ---
Author Organization [facility] Address [address] [place] [address] Care Team Providers Care Encoding Clerk Name Role Phone Nicky Haynes MD Primary Care Provider Ryan Lizama, Pcp Primary Care Provider Sebastian schroeder Encounter Details Date Type Department Care Team Description 09/10/2019 Delivery Stock Clerk Report Medical Records [address] [place] [id number] Desilets, Demetrio Olson MD Social History Tobacco [...] on filedocumented in this encounter Care Teams Encoding Clerk Relationship Specialty Start Date End Date Nicky Haynes MD PCP - General Internal Medicine 10/06/15 04/19/20 [facility], Pcp PCP - General Internal Medicine 04/20/20 documented as of this encounter
--- OUTSIDE RECORDS SUMMARY | 2025-03-10 17:22 | XMS_ITS | Encounter Summary ---
Author Organization [facility] Address [address] [place] [address] Care Team Providers Care Tire Debeader Name Role Phone Nicky Haynes MD Primary Care Provider Ryan miranda [facility], Pcp Primary Care Provider Sebastian e Encounter Details Date Type Department Care Team Description 09/12/2017 Orders Only Physiatry - [address] [address] Mukesh Singh DO Pain in both upper extremities (Primary Dx) Social History Tobacco Use Types Packs/Day Years Used Date Smoking Tobacco: Every Day Cigarettes 0.1 40 Smokeless Tobacco: Current Comments: Alcohol Use Standard Drinks/Week Comments No 0 (1 standard drink = 0.6 oz pure alcohol) occasional alcohol use, 1 time a month about 1 beer Sex Assigned at Date Recorded Not on file documented as of this encounter Plan of Treatment Scheduled Orders Name Type Priority Associated Diagnoses Orde r Schedule EMG INTERNAL/EXTERNAL EMG Routine Pain in both upper extremities Expected: 09/13/2017, Expires: 09/12/2018 documented as of this encounter Visit Diagnoses Diagnosis Pain in both upper extremities- Primary documented in this encounter Care Teams Tire Debeader Relationship Specialty Start Date End Date Nicky Haynes MD PCP - General Internal Medicine 10/06/15 04/19/20 [facility], Pcp PCP - General Internal Medicine 04/20/20 documented as of this encounter
--- OUTSIDE RECORDS SUMMARY | 2025-03-10 17:22 | XMS_ITS | Encounter Summary ---
Author Organization [facility] Address [address] [place] [address] Care Team Providers Care Molding Line Operator Name Role Phone Nicky Haynes MD Primary Care Provider Ryan Lizama, Pcp Primary Care Provider Sebastian schroeder Encounter Details Date Type Department Care Team Description 02/12/2019 [facility] Medical Records [address] [place] [address] Social History Tobacco Use Types Packs/Day Years [...] on filedocumented in this encounter Care Teams Molding Line Operator Relationship Specialty Start Date End Date Nicky Haynes MD PCP - General Internal Medicine 10/06/15 04/19/20 [facility], Pcp PCP - General Internal Medicine 04/20/20 documented as of this encounter
--- OUTSIDE RECORDS SUMMARY | 2025-03-10 17:22 | XMS_ITS | Encounter Summary ---
Author Organization [facility] Address [address] [place] [address] Care Team Providers Care Digital Commentator Name Role Phone Nicky Haynes MD Primary [facility] Primary Care Provider [facility] Encounter Details Date Type Department Care Team Description 09/05/2016 Orders Only Medical Records [address] [place] [address] Danitza Wick DPM Social History Tobacco Use [...] on filedocumented in this encounter Care Teams Digital Commentator Relationship Specialty Start Date End Date Nicky Haynes MD PCP - General Internal Medicine 10/06/15 04/19/20 [facility], Pcp PCP - General Internal Medicine 04/20/20 documented as of this encounter
--- OUTSIDE RECORDS SUMMARY | 2025-03-10 17:22 | XMS_ITS | Encounter Summary ---
Author Organization [facility] Address [address] [place] [address] Care Team Providers Care Well Service Derrick Worker Name Role Phone Natalie Khanna MD Primary Care Provider Nicky Joshi MD Primary Care Provider Ryan miranda [facility], Pcp Primary Care Provider Sebastian schroeder Encounter Details Date Type Department Care Team Description 05/16/2015 Business Doc Medical Records [address] [place] [id number] Abstract, Provider Social History Tobacco Use Types [...] on filedocumented in this encounter Care Teams Well Service Derrick Worker Relationship Specialty Start Date End Date Natalie Khanna MD PCP - General Internal Medicine 12/01/14 10/05/15 Nicky Haynes MD PCP - General Internal Medicine 10/06/15 04/19/20 [facility], Pcp PCP - General Internal Medicine 04/20/20 documented as of this encounter
--- OUTSIDE RECORDS SUMMARY | 2025-03-10 17:22 | XMS_ITS | Encounter Summary ---
Author Organization [facility] Address [address] [place] [address] Care Team Providers Care Sulfonation Equipment Operator Name Role Phone Nicky Haynes MD Primary Care Provider [facility], Pcp Primary Care Provider Unavailabl e Reason for Visit * Reason Onset Date Comments hospital follow up 03/17/2019 Encounter Details Date Type Department Care Team Description 03/17/2019 Telephone Adult Medicine [facility] [address] [place] [address] Nicky Haynes MD hospital follow up Social [...] admitted then discharged home, then went to [facility] 03/02/19 to 03/09/19 from home. Hospital follow up booked 03/24/19. Please request notes from [facility]. * Telephone Encounter - Corinna Abdullahi - 03/17/2019 12:07 PM EST Patient canceled today's appt and needs to reschedule. Hospital patient was treated at: [facility] ?? Was this only an ER visit [...] on filedocumented in this encounter Care Teams Sulfonation Equipment Operator Relationship Specialty Start Date End Date Nicky Haynes MD PCP - General Internal Medicine 10/06/15 04/19/20 [facility], 1928–[facility], Pcp PCP - General Internal Medicine 04/20/20 documented as of this encounter
--- OUTSIDE RECORDS SUMMARY | 2025-03-10 17:22 | XMS_ITS | Encounter Summary ---
Author Organization [facility] Address [address] [place] [address] Care Team Providers Care Foreign Trade Teacher Name Role Phone Nicky Haynes MD Primary Care Provider Ryan Lizama, Pcp Primary Care Provider Sebastian schroeder Encounter Details Date Type Department Care Team Description 02/14/2019 Hospital Medical Records [address] [place] [address] Jeffrey Berrios MD Social History Tobacco Use [...] on filedocumented in this encounter Care Teams Foreign Trade Teacher Relationship Specialty Start Date End Date Nicky Haynes MD PCP - General Internal Medicine 10/06/15 04/19/20 Community, Pcp PCP - General Internal Medicine 04/20/20 documented as of this encounter
--- OUTSIDE RECORDS SUMMARY | 2025-03-10 17:22 | XMS_ITS | Encounter Summary ---
Author Organization [facility] Address [address] [place] [address] Care Team Providers Care Lead Electrical Engineer Name Role Phone Luis Oseguera MD Primary Care Provider Unavail able Natalie Khanna MD Primary Care Provider Nicky Joshi MD Primary Care Provider Unav ailable [facility], Pcp Primary Care Provider Unavailmercedes schroeder Encounter Details Date Type Department Care Team Description 08/21/2013 Sterile Proc Tech Report Medical Records [address] [place] [address] Social History Tobacco Use Types Packs/Day Years [...] on filedocumented in this encounter Care Teams Lead Electrical Engineer Relationship Specialty Start Date End Date Luis Oseguera MD PCP - General Internal Medicine 03/20/13 11/30/14 Natalie Khanna MD PCP - General Internal Medicine 12/01/14 10/05/15 Nicky Haynes MD PCP - General Internal Medicine 10/06/15 04/19/20 [facility], Pcp PCP - General Internal Medicine 04/20/20 documented as of this encounter
--- OUTSIDE RECORDS SUMMARY | 2025-03-10 17:22 | XMS_ITS | Encounter Summary ---
Author Organization [facility] Address [address] [place] [address] Care Team Providers Care Software Quality Assurance Analyst Name Role Phone Nicky Haynes MD Primary Care Provider Ryan Lizama, Pcp Primary [facility] Encounter Details Date Type Department Care Team Description 11/20/2018 Wrapper Opener Report Medical Records [address] [place] [address] Adam Briceno MD Social History Tobacco Use [...] on filedocumented in this encounter Care Teams Software Quality Assurance Analyst Relationship Specialty Start Date End Date Nicky Haynes MD PCP - General Internal Medicine 10/06/15 04/19/20 Community, Pcp PCP - General Internal Medicine 04/20/20 documented as of this encounter
--- OUTSIDE RECORDS SUMMARY | 2025-03-10 17:22 | XMS_ITS | Encounter Summary ---
Author Organization [facility] Address [address] [place] [address] Care Team Providers Care Medical Office Assistant Instructor Name Role Phone Natalie Khanna MD Primary Care Provider Nicky Joshi MD Primary Care Provider Ryan miranda [facility], Pcp Primary Care Provider [facility] elda Encounter Details Date Type Department Care Team Description 04/05/2015 GAUGER CHIEF DELIVERY/[place] Report Medical Records [address] [place] [address] Abstract, Provider Social History Tobacco Use Types [...] on filedocumented in this encounter Care Teams Medical Office Assistant Instructor Relationship Specialty Start Date End Date Natalie Khanna MD PCP - General Internal Medicine 12/01/14 10/05/15 Nicky Haynes MD PCP - General Internal Medicine 10/06/15 04/19/20 [facility], Pcp PCP - General Internal Medicine 04/20/20 documented as of this encounter
--- OUTSIDE RECORDS SUMMARY | 2025-03-10 17:22 | XMS_ITS | Encounter Summary ---
Author Organization [facility] Address [address] [place] [address] Care Team Providers Care Web Operations Specialist Name Role Phone Natalie Khanna MD Primary Care Provider Nicky Joshi MD [facility] Primary [facility] Encounter Details Date Type Department Care Team Description 08/08/2015 Wellness Visit Medical Records [address] [place] [address] Natalie Khanna MD Social History Tobacco Use [...] on filedocumented in this encounter Care Teams Web Operations Specialist Relationship Specialty Start Date End Date Natalie Khanna MD PCP - General Internal Medicine 12/01/14 10/05/15 Nicky Haynes MD PCP - General Internal Medicine 10/06/15 04/19/20 [facility], Pcp PCP - General Internal Medicine 04/20/20 documented as of this encounter
--- OUTSIDE RECORDS SUMMARY | 2025-03-10 17:22 | XMS_ITS | Encounter Summary ---
Author Organization [facility] Address [address] [place] [address] Care Team Providers Care Trim Attacher Name Role Phone Luis Oseguera MD Primary Care Provider Unavail able Natalie Khanna MD Primary Care Provider Nicky Joshi MD Primary Care Provider Unav ailable [facility], Pcp Primary Care Provider Unavailmercedes e Encounter Details Date Type Department Care Team Description 04/29/2013 Controlled Substance Plan Medical Records [address] [place] [address] Abstract, Provider Social History Tobacco Use Types [...] on filedocumented in this encounter Care Teams Trim Attacher Relationship Specialty Start Date End Date Luis Oseguera MD PCP - General Internal Medicine 03/20/13 11/30/14 Natalie Khanna MD PCP - General Internal Medicine 12/01/14 10/05/15 Nicky Haynes MD PCP - General Internal Medicine 10/06/15 04/19/20 Community, Pcp PCP - General Internal Medicine 04/20/20 documented as of this encounter
--- OUTSIDE RECORDS SUMMARY | 2025-03-10 17:22 | XMS_ITS | Encounter Summary ---
Author Organization [facility] Address [address] [place] [address] Care Team Providers Care Reading Interventionist Name Role Phone Nicky Haynes MD Primary Care Provider Ryan Lizama, Pcp Primary Care Provider Sebastian schroeder Encounter Details Date Type Department Care Team Description 01/20/2017 Hospital Medical Records [address] [place] [address] Jeffrey Berrios MD Social History Tobacco Use [...] filedocumented in this encounter Care Teams Reading Interventionist Relationship Specialty Start Date End Date Nicky Haynes MD PCP - General Internal Medicine 10/06/15 04/19/20 [facility], Pcp PCP - General Internal Medicine 04/20/20 documented as of this encounter
--- OUTSIDE RECORDS SUMMARY | 2025-03-10 17:22 | XMS_ITS | Encounter Summary ---
Author Organization [facility] Address [address] [place] [address] Care Team Providers Care Disbursing Officer Name Role Phone Luis Oseguera MD Primary Care Provider Unavail able Natalie Khanna MD Primary Care Provider Nicky Joshi MD Primary Care Provider Unav ailable [facility], Pcp Primary Care Provider Unavailmercedes e Encounter Details Date Type Department Care Team Description 06/22/2013 Regional Education Coordinator Report Medical Records [address] [place] [address] Kaleb Machuca Social History Tobacco Use Types [...] on filedocumented in this encounter Care Teams Disbursing Officer Relationship Specialty Start Date End Date Luis Oseguera MD PCP - General Internal Medicine 03/20/13 11/30/14 Natalie Khanna MD PCP - General Internal Medicine 12/01/14 10/05/15 Nicky Haynes MD PCP - General Internal Medicine 10/06/15 04/19/20 [facility], Pcp PCP - General Internal Medicine 04/20/20 documented as of this encounter
--- OUTSIDE RECORDS SUMMARY | 2025-03-10 17:22 | XMS_ITS | Encounter Summary ---
Author Organization [facility] Address [address] [place] [address] Care Team Providers Care Hitcher Name Role Phone Nicky Haynes MD Primary Care Provider Ryan Lizama, Pcp Primary Care Provider Sebastian e Encounter Details Date Type Department Care Team Description 02/24/2019 Old Medical Records Medical Records [address] [place] [address] Abstract, Provider Social History Tobacco Use Types [...] on filedocumented in this encounter Care Teams Hitcher Relationship Specialty Start Date End Date Nicky Haynes MD PCP - General Internal Medicine 10/06/15 04/19/20 [facility], Pcp PCP - General Internal Medicine 04/20/20 documented as of this encounter
--- OUTSIDE RECORDS SUMMARY | 2025-03-10 17:22 | XMS_ITS | Encounter Summary ---
Author Organization [facility] Address [address] [place] [address] Care Team Providers Care Carnival Worker Name Role Phone Nicky Haynes MD Primary Care Provider Ryan Lizama, Pcp Primary Care Provider Sebastian schroeder Encounter Details Date Type Department Care Team Description 07/02/2016 Hospital Medical Records [address] [place] [address] Desilets, Demetrio Olson MD Social History Tobacco [...] on filedocumented in this encounter Care Teams Carnival Worker Relationship Specialty Start Date End Date Nicky Haynes MD PCP - General Internal Medicine 10/06/15 04/19/20 [facility], Pcp PCP - General Internal Medicine 04/20/20 documented as of this encounter
--- OUTSIDE RECORDS SUMMARY | 2025-03-10 17:22 | XMS_ITS | Encounter Summary ---
Author Organization [facility] Address [address] [place] [address] Care Team Providers Care University Relations Vice President Name Role Phone Nicky Haynes MD Primary Care Provider Ryan Lizama, Pcp [facility] Encounter Details Date Type Department Care Team Description 08/16/2016 Hospital Medical Records [address] [place] [address] [facility] [address] [place] [address], [address] [address] Social History Tobacco Use Types Packs/Day Years [...] on filedocumented in this encounter Care Teams University Relations Vice President Relationship Specialty Start Date End Date Nicky Haynes MD PCP - General Internal Medicine 10/06/15 04/19/20 [facility], Pcp PCP - General Internal Medicine 04/20/20 documented as of this encounter
--- OUTSIDE RECORDS SUMMARY | 2025-03-10 17:22 | XMS_ITS | Encounter Summary ---
Author Organization [facility] Address [address] [place] [address] Care Team Providers Care Pharmaceutical Salesperson Name Role Phone Nicky Haynes MD Primary Care Provider Ryan Lizama, Pcp Primary [facility] Encounter Details Date Type Department Care Team Description 10/26/2016 Product Support Technician Report Medical Records [address] [place] [address] Social History Tobacco Use Types Packs/Day Years [...] on filedocumented in this encounter Care Teams Pharmaceutical Salesperson Relationship Specialty Start Date End Date Nicky Haynes MD PCP - General Internal Medicine 10/06/15 04/19/20 [facility], Pcp PCP - General Internal Medicine 04/20/20 documented as of this encounter
--- OUTSIDE RECORDS SUMMARY | 2025-03-10 17:22 | XMS_ITS | Encounter Summary ---
Author Organization [facility] Address [address] [place] [address] Care Team Providers Care Manager Park Name Role Phone Nicky Haynes MD Primary Care Provider Ryan Lizama, Pcp Primary Care Provider Sebastian schroeder Encounter Details Date Type Department Care Team Description 01/20/2017 Hospital Medical Records [address] [place] [address] Jake Mora MD Social History Tobacco Use Types Packs/Day [...] on filedocumented in this encounter Care Teams Manager Park Relationship Specialty Start Date End Date Nicky Haynes MD PCP - General Internal Medicine 10/06/15 04/19/20 [facility], Pcp PCP - General Internal Medicine 04/20/20 documented as of this encounter
--- OUTSIDE RECORDS SUMMARY | 2025-03-10 17:22 | XMS_ITS | Encounter Summary ---
Author Organization [facility] Address [address] [place] [address] Care Team Providers Care Gear And Spline Grinder Name Role Phone Luis Oseguera MD Primary Care Provider Unavail able Natalie Khanna MD Primary Care Provider Nicky Joshi MD Primary Care Provider Unav ailable [facility], Pcp Primary Care Provider Unavailmercedes e Encounter Details Date Type Department Care Team Description 07/15/2014 Trash Man Report Medical Records [address] [place] [address] Adam Briceno MD Social History Tobacco Use [...] on filedocumented in this encounter Care Teams Gear And Spline Grinder Relationship Specialty Start Date End Date Luis Oseguera MD PCP - General Internal Medicine 03/20/13 11/30/14 Natalie Khanna MD PCP - General Internal Medicine 12/01/14 10/05/15 Nicky Haynes MD PCP - General Internal Medicine 10/06/15 04/19/20 [facility], Pcp PCP - General Internal Medicine 04/20/20 documented as of this encounter
--- OUTSIDE RECORDS SUMMARY | 2025-03-10 17:22 | XMS_ITS | Encounter Summary ---
Author Organization [facility] Address [address] [place] [address] Care Team Providers Care Telecommunication Operator Name Role Phone Nicky Haynes MD Primary Care Provider Ryan Lizama, Pcp Primary Care Provider Sebastian schroeder Encounter Details Date Type Department Care Team Description 08/30/2016 Hospital Medical Records [address] [place] [address] Danitza Wick DPM Social History Tobacco Use [...] on filedocumented in this encounter Care Teams Telecommunication Operator Relationship Specialty Start Date End Date Nicky Haynes MD PCP - General Internal Medicine 10/06/15 04/19/20 Community, Pcp PCP - General Internal Medicine 04/20/20 documented as of this encounter
--- OUTSIDE RECORDS SUMMARY | 2025-03-10 17:22 | XMS_ITS | Encounter Summary ---
Author Organization [facility] Address [address] [place] [address] Care Team Providers Care Hand Bobbin Cleaner Name Role Phone Nicky Haynes MD Primary Care Provider Ryan Lizama, Pcp Primary [facility] Encounter Details Date Type Department Care Team Description 05/20/2019 Mirror Fabrication Supervisor Report Medical Records [address] [place] [address] Annelise Dockery MD Social History Tobacco Use [...] on filedocumented in this encounter Care Teams Hand Bobbin Cleaner Relationship Specialty Start Date End Date Nicky Haynes MD PCP - General Internal Medicine 10/06/15 04/19/20 Community, Pcp PCP - General Internal Medicine 04/20/20 documented as of this encounter
--- OUTSIDE RECORDS SUMMARY | 2025-03-10 17:22 | XMS_ITS | Encounter Summary ---
Author Organization [facility] Address [address] [place] [address] Care Team Providers Care Wrecker Operator Name Role Phone Nicky Haynes MD Primary Care Provider Ryan Lizama, Pcp Primary Care Provider [facility] e Encounter Details Date Type Department Care Team Description 05/07/2019 Fire Prevention Specialist Report Medical Records [address] [place] [address] Jeffrey Berrios MD Social History Tobacco Use [...] on filedocumented in this encounter Care Teams Wrecker Operator Relationship Specialty Start Date End Date Nicky Haynes MD PCP - General Internal Medicine 10/06/15 04/19/20 [facility], Pcp PCP - General Internal Medicine 04/20/20 documented as of this encounter
--- OUTSIDE RECORDS SUMMARY | 2025-03-10 17:22 | XMS_ITS | Encounter Summary ---
Author Organization [facility] Address [address] [place] [address] Care Team Providers Care Tunnel Elastic Operator Zigzag Name Role Phone Natalie Khanna MD Primary Care Provider Nicky Joshi MD Primary [facility] Primary Care Provider [facility] elda Encounter Details Date Type Department Care Team Description 03/07/2015 Editing Intern Report Medical Records [address] [place] [address] Desilets, Demetrio Olson MD Social History Tobacco [...] on filedocumented in this encounter Care Teams Tunnel Elastic Operator Zigzag Relationship Specialty Start Date End Date Natalie Khanna MD PCP - General Internal Medicine 12/01/14 10/05/15 Nicky Haynes MD PCP - General Internal Medicine 10/06/15 04/19/20 [facility], Pcp PCP - General Internal Medicine 04/20/20 documented as of this encounter
--- OUTSIDE RECORDS SUMMARY | 2025-03-10 17:23 | XMS_ITS | Encounter Summary ---
Author Organization [facility] Address [address] [place] [address] Care Team Providers Care Molecular Biology Director Name Role Phone Nicky Haynes MD Primary Care Provider Ryan Lizama, Pcp Primary Care [facility] Encounter Details Date Type Department Care Team Description 11/01/2017 Night Triage Doc Medical Records [address] [place] [address] Abstract, Provider Social History Tobacco Use Types [...] on filedocumented in this encounter Care Teams Molecular Biology Director Relationship Specialty Start Date End Date Nicky Haynes MD PCP - General Internal Medicine 10/06/15 04/19/20 Community, Pcp PCP - General Internal Medicine 04/20/20 documented as of this encounter
--- OUTSIDE RECORDS SUMMARY | 2025-03-10 17:23 | XMS_ITS | Encounter Summary ---
Author Organization [facility] Address [address] [place] [address] Care Team Providers Care Environmental Auditor Name Role Phone Natalie Khanna MD Primary Care Provider Nicky Joshi MD Primary Care Provider Ryan miranda [facility], Pcp Primary Care Provider Sebastian schroeder Encounter Details Date Type Department Care Team Description 12/08/2014 Business Doc Medical Records [address] [place] [address] Abstract, Provider Social History Tobacco Use Types [...] filedocumented in this encounter Care Teams Environmental Auditor Relationship Specialty Start Date End Date Natalie Khanna MD PCP - General Internal Medicine 12/01/14 10/05/15 Nicky Haynes MD PCP - General Internal Medicine 10/06/15 04/19/20 [facility], Pcp PCP - General Internal Medicine 04/20/20 documented as of this encounter
--- OUTSIDE RECORDS SUMMARY | 2025-03-10 17:23 | XMS_ITS | Encounter Summary ---
Author Organization [facility] Address [address] [place] [address] Care Team Providers Care Load Out Person Name Role Phone Shaun Khanna MD Primary Care Provider Nicky Joshi MD [facility] Primary Care Provider Unavailabl e Reason for Visit * Reason Onset Date Comments other 12/09/2014 uncontrolled sha avinash Encounter Details Date Type Department Care Team Description 12/09/2014 Telephone Adult Medicine [facility] [address] [place] [address] Shaun Khanna MD other (uncontrolled shaking) Social [...] 3rd libertarian insurance information Date of accident/Injury: na How long has patient had these symptoms?: today 12/10/14 PCP: SHAUN KHANNA Payor: MEDICARE-Platter / Plan: MEDICARE-Platter / Product Type: MEDICARE [id number] documented in this encounter Plan of Treatment Not on file documented as of this encounter Visit Diagnoses Not on filedocumented in this encounter Care Teams Load Out Person Relationship Specialty Start Date End Date Shaun Khanna MD PCP - General Internal Medicine 12/01/14 10/05/15 Nicky Haynes MD PCP - General Internal Medicine 10/06/15 04/19/20 [facility], Pcp PCP - General Internal Medicine 04/20/20 documented as of this encounter
--- OUTSIDE RECORDS SUMMARY | 2025-03-10 17:23 | XMS_ITS | Encounter Summary ---
Author Organization [facility] Address [address] [place] [address] Care Team Providers Care Honest John Rocket Crew Member Name Role Phone Nicky Haynes MD Primary Care Provider [facility], Pcp Primary Care Provider Unavailabl e Reason for Visit * Reason Onset Date Comments Faxed Refill 12/30/2019 Encounter Details Date Type Department Care Team Description 12/30/2019 Refill Adult Medicine [address] [address] Nicky Haynes MD Faxed Refill Social History [...] N/A Patients current insurance carrier is: Payor: [facility] [employer] / Plan: ONE CARE [facility] / Product Type: HMO [id number] documented in this encounter Plan of Treatment Not on file documented as of this encounter Visit Diagnoses Not on filedocumented in this encounter Care Teams Honest John Rocket Crew Member Relationship Specialty Start Date End Date Nicky Haynes MD PCP - General Internal Medicine 10/06/15 04/19/20 [facility], Pcp PCP - General Internal Medicine 04/20/20 documented as of this encounter
[2025-03-10 18:36] LABS: Anion Gap 14 (12-20); Blood Urea Nitrogen 10 mg/dL (9-16); Carbon Dioxide 23 mmol/L (22-29); Chloride 104 mmol/L (96-108); Estimated Glomerular Filt Rate > 60; Potassium 5.0 mmol/L (3.3-5.1); Sodium 136 mmol/L (135-145)
== END 2025-03-10 13:55 | disposition home or self-care (01) ==
LOC: HO.HKASLDS 13:54
PROVIDERS: Internal Medicine Nephrology; PCP Nurse Practitioner Family; Visit Provider Psychiatry & Neurology Neurology
DX: G43.711 Chronic migraine without aura, intractable, with status migrainosus (principal); G44.209 Tension-type headache, unspecified, not intractable; I10 Essential (primary) hypertension; E87.1 Hypo-osmolality and hyponatremia
CPT/HCPCS: 36415; 80051; 82565; 84520; 99212

== ENCOUNTER 2025-03-10 13:54 | Outpatient (AMB) | payer OTHER, SELFPAY ==
--- NOTE | 2025-03-10 13:58 | A.OFFVIS_ITS ---
Vital Signs 03/10/25 13:59 Height 5 ft Weight 122 lb BMI 23.8 BP 132/70 Blood Pressure Location Lt brachial Position Sitting Pulse 73 Pulse Source Pulse Oximeter Pulse Oximetry (%) 96 Oxygen Delivery Method Room Air Intake Visit Reasons: 4mon follow-up w/labs Intake Note: Follow up Headache and migraine Showroom Manager Required: No Accompanied by: Self / Same As Patient Allergies succinylcholine Adverse Reaction (Severe, Verified 03/10/25 13:58) choline estrace deficiency cefaclor (From Ceclor) Adverse Reaction (Intermediate, Verified 03/10/25 13:58) hives Penicillins Adverse Reaction (Intermediate, Verified 03/10/25 13:58) hives Sulfa (Sulfonamide Antibiotics) Adverse Reaction (Intermediate, Verified 03/10/25 13:58) hives Tetanus Vaccines and Toxoid Adverse Reaction (Verified 03/10/25 13:58) Hemiparesis HPI Comments Details: 70-yr-old female presents for follow up of migraine.she did the prednisone taper 2 mths ago and was started on AImovig but patient got 1 dose and did not continue She reports daily headaches . she treats her headaches with ibuprofen and tylenol. the headaches are associated with light noise sensitivity ,occasional visual aura- lightning .It is usually in unitemporal pounding pain. It can last days.she takes a max ibuprofen 200mg tid a day . Pt reports she reports has had an almost daily migraine headache and tension headaches, which began in her teenage years, and have come and gone over time, eventually subsiding after menopause, however returned again about a year ago.. she had fracture of C6 vertebrae- fell asleep in the toilet and fell- she had fractire of C6 and also hit her head. she [facility] - did not have surgery. Neuroleptic-induced tardive dyskinesia-followed by [facility] Current treatment strategies * Current acute medication use/interventions: Uses Tylenol prn, sporadically Ibuprofen- d/t h/o GI bleed * Current preventative medication use: magnesium * Current non-pharmacological interventions: rest Previous migraine treatments: * Amitriptyline for sleep- x's 3 months - ineffective [facility] Medical History Alcohol abuse Drug abuse, IV Migraine with aura Neuroleptic-induced tardive dyskinesia COVID-19 vaccine series completed Back pain GERD (gastroesophageal reflux disease) Vertigo Anemia Hyponatremia Fracture of left femur Smoker Thyroid disease Asthma Schizoaffective disorder Hepatitis COPD (chronic obstructive pulmonary disease) Elevated cholesterol HTN (hypertension) Surgical History H/O skin graft S/P hardware removal Hx of elbow surgery History of pubovaginal sling History of esophagogastroduodenoscopy (EGD) Hx of colonoscopy History of appendectomy History of hip surgery Social History 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 Are you a primary child day care teacher to a significant other at home: No Do you presently have visiting nurse or other home services: Yes (CERAMIC ENGINEER) Patient Tobacco Use Status: Current everyday Tobacco user Tobacco use type: Cigarette Cigarette Packs Per Day: 0.25 Cigarettes Per Day: 2 Years Smoked: 44 On Nicotene patch and lozengers to quit smoking started 2 weeks ago Second Hand Smoke Exposure: Yes Advance Directives Date on File: 05/27/20 Physical Exam Vital Signs: Last Vital Signs Pulse 73 03/10/25 13:59 BP 132/70 03/10/25 13:59 Pulse Ox 96 03/10/25 13:59 Oxygen Delivery Method Room Air 03/10/25 13:59 BMI result Body Mass Index 23.8 Const General: cooperative, healthy appearing and no acute distress Nutritional Appearance: average body habitus Orientation/consciousness: patient oriented x3 Eyes Pupils: Equal, round and reactive pupils present Neuro Other: Photophobic body rocking tongue and perioral movements abnormal leg movements Gait- slow wide based (has a walker ) neck collar General: patient oriented x3 Cranial nerves: Yes Equal, round and reactive pupils present and Yes Normal facial strength present Cognition (Neuro): normal cognition Motor exam (neuro): 5/5 motor strength present throughout Assessment & Plan Assessment & Plan (1) Chronic migraine without aura: Comment: with intermittent aura . Code(s): G43.709 - Chronic migraine without aura, not intractable, without status migrainosus Category: Medical Qualifiers: Intractability: intractable Status migrainosus presence: with status migrainosus Qualified Code(s): G43.711 - Chronic migraine without aura, intractable, with status migrainosus (2) Tension type headache: Code(s): G44.209 - Tension-type headache, unspecified, not intractable Category: Medical Plan The increase in migraines is likely related to her head injury in Dec 2024 Ubrogepant (Ubrelvy) 100mg tab:was prescribed during her last visit but she did not start * Take Ubrogepant 1/2 - 1 tab (50-100mg) at onset of headache.and repeat the dose in 2 hours. Max of 2 tabs (200mg) per 24 hours. * You may take Ubrogepant with OTC Tylenol 650mg q 4 hours, Ibuprofen (liquid gel) 600mg q 6 hours, or Naproxen (liquid gel) 440mg q 12 hrs as needed. * Do not take Ubrogepant with or within 5 days of taking Butalbital (Fioricet or Fiorinal). * Possible adverse effects of Ubrogepant include, but are not limited to, fatigue, nausea, dry mouth, constipation. Previous acute migraine medication trials: Tylenol, ibuprofen, naproxen- ineffective Acute migraine medication contraindications: NSAIDs due to history of GI bleed. All triptans and DHE due to history of thalamic cerebral infarct, HTN, HLD. For headache prevention medication: start Riboflavin 400mg daily in the morning Continue Magnesium 400mg daily at bedtime ReStart Aimovig 140mg/ml autoinjector, 1ml (140mg) subcutaneous injection once a month. * Once this receives insurance Prior authorization, we will arrange for RN Aimovig injection administration education * Potential adverse effects of Aimovig include but are not limited to injection site reactions, cramps, constipation, increase in blood pressure. * Continue diltiazem-n used for HTN Previous migraine prevention medication trials: Amitriptyline x3 months- ineffective. Migraine prevention medication contraindications: All beta-blockers due to COPD with emphysema diagnosis F/u with Dr. Chowdhury for tardive dyskinesia Austedo XR 6 mg qd Coding Level of Care Code Est Pt Level 4 (32834) Diagnoses Intractable chronic migraine without aura and with status migrainosus G43.711 Intractability: intractable Status migrainosus presence: with status migrainosus Tension type headache G44.209
[2025-03-10 13:59] VITALS: BP 132/70; PULSE 73; O2SAT 96; BMI 23.8
--- OUTSIDE RECORDS SUMMARY | 2025-03-10 16:57 | XMS_ITS | Clinical Summary ---
Author Organization [facility] Address [address] [facility] [address] [place] [address] Phone Care Team Providers Care Batch Records Clerk Name Role Phone Antoinette Zimmer MD Primary [...] disc 04/03 Depressive disorder 04/03/2022 Emphysema 04/03/2022 Post-traumatic stress disorder 04/03/2022 History of malignant basal cell neoplasm of skin 04/03/2022 Hypersomnia 04/03/2022 Lumbar spondylosis 04/03/2022 Obese class I 04/03/2022 Onychogryposis 04/03/2022 Peripheral neuropathy 04/03/2022 Seizure disorder 04/03/2022 Harmful pattern of substance use 04/03/2022 Tinea pedis 04/03/2022 Tobacco use and exposure - finding 04/03/2022 Urinary incontinence 04/03/2022 Hypertension 11/25/2020 Hyponatremia 11/24/2020 Benign essential hypertension 05/25/2020 Hypo-osmolality and or hyponatremia 05/25/2020 Resolved Problems Problem Noted Date Diagnosed Date Resolved Date Osteoporosis 11/24/2020 11/24/2020 Overview (11/24/2020): on once a year injection Bone Density 11/12/18. Recommend 2 year repeat Schizoaffective disorder 11/24/202003/2021 Overview (11/24/2020): cared at [facility]/ normal ct brain Tobacco use disorder 11/24/2020 021 Vitamin D deficiency 11/24/2020 021 Pyometra 04/13/2019 [...] va sopressin secretion 09/26/2018 11/24/2020 Overview (11/24/2020): Kitchen Steward/Stewardess is Dr Adam Briceno MD Migraine 04/07/2018 11/24/2020 Normocytic normochromic anemia 11/08/2017 11/24/2020 Dyskinesia of esophagus 11/16/201611/13 Overview (11/24/2020): normal EGD 11/15/[address] Coburn, functional dysphagia Periodic limb movement disorder 11/05/2016 11/24/2020 Malignant basal cell neoplasm of skin 02/22/2016 11/24/2020 Overview (11/24/2020): Face and trunk in past. Gastroesophageal reflux disease 11/08/2015 11/24/2020 Overview (11/24/2020): Pt no showed barium swallow at [facility] 12/02/15 10:30am. Hyperlipidemia 03/23/2015 11/24/2020 Overview [...] Overview (11/24/2020): Per patient viral load undetectable. [facility] gastroenterology 12/27 egd nad-dr escobedo 12/27-colonoscopy small [...] Phone Billing Address Personal/Family Self 1955 [address] ([id number]) [place] [address] [facility] ([id number]) [place] [address] Care Teams Batch Records Clerk Relationship Specialty Start Date End Date Antoinette Zimmer MD [address] [place] [address] PCP - General Internal Medicine 11/25/20
--- OUTSIDE RECORDS SUMMARY | 2025-03-10 16:57 | XMS_ITS | Encounter Summary ---
Author Organization [facility] Address [address] [place] [address] Phone Care Team Providers Care Shingle Inspector Name Role Phone Sole Hendricks MD Unavailable [phone] Sanjay Carl NP Primary Care Provider [phone] Encounter Details Date Type Department Care Team (Late st Contact Info) Description 05/17/2023 Procedure Pass [facility] Periop [address] [place] [address] Social History Tobacco Use Types Packs/Day Years [...] on filedocumented in this encounter Care Teams Shingle Inspector Relationship Specialty Start Date End Date Sanjay Carl, SAFETY ADVISOR [address] [place] [address] PCP - General Nurse Practitioner 12/19/22 Sole Hendricks MD [facility] [place] [address] Dermatology 12/12/22 documented as of this encounter Additional Source Comments The information contained in this document represents components of the legal health record. It is not the complete legal health record.[facility]
--- OUTSIDE RECORDS SUMMARY | 2025-03-10 16:57 | XMS_ITS | Clinical Summary ---
Author Organization [facility] Address [address] [place] [address] Phone Care Team Providers Care Auto Carrier Driver Name Role Phone Sole Hendricks MD Unavailable [phone] Sanjay Carl GRINDER TENDER Primary Care Provider [phone] Allergies Active Allergy Reactions Criticality Noted Date [...] FOBT 2002 SIGMOIDOSCOPY 2002 VIRTUAL COLONOSCOPY 2002 ZOSTER VACCINES (2 of 2) 06/11/2018 04/16/2018 PNEUMOCOCCAL VACCINES (50+ years) (2 of 2 - PCV) 04/16/2019 04/16/2018 OSTEOPOROSIS SCREENING INITIAL (ONE-TIME) 2022 TSH LEVEL 05/21/2024 05/21/2023 INFLUENZA VACCINE (#1) 2024 , 02/09/2022, 02/03/2021, Additional history exists COVID-19 VACCINE ( season) 2024 03/27/2023, 03/01/2022, 11/03/2021, Additional history exists SCREENING FOR DIABETES 05/28/2026 05/28/2023 RSV VACCINE (1 - 1-dose 75+ series) 01/03/2032 HEPATITIS A VACCINES Aged Out No long [...] EST) TSH 5.56 0.50 - 5.70 uIU/mL [facility] Blood 05/21/2023 6:26 AM EST 05/21/2023 7:00 AM EST us Ernie Gonsales MD LAB BLOOD BKR ORDERABLES Gela l Result [facility] [address] [place] [address] from Last 3 Months or Most Recently Relevant to Health Maintenance Insurance [address] MEDICARE REPLACEMENT [address] [place] [address] CARE MEDICARE REPLACEMENT CARE MEDICARE REPLACEMENT CARE MEDICARE REPLACEMENT Advance Directives For more information, please contact: [phone] (9AM - 5PM [place], Saturday-Saturday) * Full Code (Latest Code Status on File) Date Activated Date Inactivated Comments 05/16/2023 6:17 PM Question Answer Comments Code Status Confirmed With: Patient Care Teams Auto Carrier Driver Relationship Specialty Start Date End Date Sanjay Carl NP [address] [place] [address] PCP - General Nurse Practitioner 12/19/22 Sole Hendricks MD [address] [place] [address] Dermatology 12/12/22 Additional Source Comments The information contained in this document represents components of the legal health record. It is not the complete legal health record.[facility]
--- OUTSIDE RECORDS SUMMARY | 2025-03-10 16:57 | XMS_ITS | Clinical Summary ---
Author Organization [facility] Address [address] [place] [address] Phone Care Team Providers Care Executive Vp Name Role Phone Sanjay Carl NP Primary Care Provider [phone] Allergies Active Allergy Reactions Criticality Noted Date [...] EDT - 12/25/2024 1:05 AM EDT Emergency [facility] Emergency [address] [place] [address] Dejon Presley MD Other migraine without status migrainosus, not intractable (Primary Dx) Discharge Disposition: Home or Self Care from Last 3 Months Surgical History Surgery Date Site/Laterality Comments BLADDER SURGERY PROCEDURE: HISTORICAL BLADDER SURGERY; COMMENT: incontinence OTHER SURGICAL HISTORY 2010 PROCEDURE: [place] UNLISTED PROCEDURE LEG/ANKLE; COMMENT: compartmental fasciitis OTHER SURGICAL HISTORY 10/30/10 PROCEDURE: COLONOSCOPY, SURGICAL; COMMENT: [facility] Dr Ortiz ELBOW SURGERY 07/27/13 PROCEDURE: HISTORICAL ELBOW SURGERY; COMMENT: left ulnar nerve COLONOSCOPY 09/01/15 PROCEDURE: HISTORICAL COLONOSCOPY; COMMENT: Dr Coburn, neg biopsies FOOT SURGERY 12/08/15 Right PROCEDURE: HISTORICAL FOOT SURGERY; COMMENT: first metatarsophalangeal joint replacement with hemiphalangectomy FOOT SURGERY 08/30/2016 Left PROCEDURE: HISTORICAL FOOT SURGERY; COMMENT: left 1st metatarsophlangeal joint replacement ESOPHAGOGASTRODUODENOSCOPY 11/15/2016 PROCEDURE: [place] ESOPHAGOGASTRODUODENOSCOPY TRANSORAL DIAGNOSTIC; COMMENT: Dr Coburn dilated but met no resistance, normal EGD, Dx is functional dysphagia ESOPHAGOGASTRODUODENOSCOPY 10/23/2018 PROCEDURE: [place] ESOPHAGOGASTRODUODENOSCOPY TRANSORAL DIAGNOSTIC; COMMENT: normal by Dr Alpesh Murphy OTHER SURGICAL HISTORY 02/14/2019 Left PROCEDURE: [place] OPTX FEM SHFT FX W/INSJ IMED IMPLT W/WO SCREW; COMMENT: Dr Berrios [place] [facility], spontaneous Fx. Medical History Medical History Date Comments Schizoaffective disorder ( S/[facility] V24, [facility] V28) DX:Schizoaffective disorder (HCC); COMMENT: cared at [facility] HTN (hypertension) DX:HTN (hyper tension) Osteoporosis [...] SIADH (syndrome of inappropr iate ADH production) ([facility] V24) 09/26/2018 DX:SIADH (syndrome of inappr opriate ADH production) ([facility]); COMMENT: Circuit Board Inspector is Dr Adam Briceno MD Depression Anxiety COPD (chronic obstructive pu lmonary disease) ([facility] V24, [facility] V28) Overactive bladder Basal cell [...] for your loved ones. For example, child protective services social worker or elderly care for an older adult? [...] Date Recorded What is your living situation? Unrecognized valu e 09/02/2024 Interpersonal Safety Answer Date Record ed Physical Abuse Unrecognized value 09/02/2024 Verbal Abuse Unrecognized value 09/02/2024 Comments No Sex and Gender Information [...] Breast Cancer Screening 1955 Colorectal Cancer Screening: Colonoscopy 1955 DTaP,Tdap,and Td Vaccines (1 - Tdap) 01/03/1976 Hepatitis A Vaccines (1 of 2 - Risk 2-dose series) 01/03/1976 RSV Immunization Adult Patients (1 - Risk 50-74 years 1-dose series) 2007 Hepatitis B Vaccines (1 of 3 - Risk 3-dose series) 2017 Zoster Vaccines (2 of 2) 06/11/2018 04/16/2018 Pneumococcal Vaccine: 50+ Years (2 of 2 - PCV) 04/16/2019 04/16/2018, 05/02/2009 Cholesterol Screening (Lipid Panel) 03/18/2022 Hepatitis C Screening 03/18/2022 Lung Cancer [...] Procedure Name Priority Date/Time Associated Diagnosis Comments BASIC METABOLIC PANEL STAT 11/12/2024 8:41 AM EDT from Last 3 Months or Most Recently Relevant to Health Maintenance Results * (ABNORMAL) Basic metabolic panel (11/12/2024 8:41 AM EDT) Sodium 138 133 - 145 mmol/L LAB CHEMISTRY METHOD 11/12/2024 9:51 AM [facility] Potassium 4.0 3.5 - 5.5 mmol/L LAB CHEMISTRY METHOD 11/12/2024 9:51 AM [facility] Comment:Hemolysis present Chloride 105 96 - 110 mmol/L LAB CHEMISTRY METHOD 11/12/2024 9:51 AM [facility] CO2 25 21 - 32 mmol/L LAB CHEMISTRY METHOD 11/12/2024 9:51 AM [facility] Anion Gap 8 3 - 11 LAB CHEMISTRY METHOD 11/12/2024 9:51 AM [facility] Glucose 61(L) 70 - 100 mg/dL LAB CHEMISTRY METHOD 11/12/2024 9:51 AM [facility] BUN 7 5 - 25 mg/dL LAB CHEMISTRY METHOD 11/12/2024 9:51 AM [facility] Creatinine 0.81 0.50 - 1.10 mg/dL LAB CHEMISTRY METHOD 11/12/2024 9:51 AM [facility] eGFR 80 >=60 mL/min/1. 73m2 LAB CHEMISTRY METHOD 11/12/2024 9:51 AM [facility] Comment:Calculation based on the Chronic Kidney Disease Epidemiology Collaboration (CKD-EPI) equation refit without adjustment for race. BUN/Creatinine Ratio 8.6 LAB CHEMISTRY METHOD 11/12/2024 9:51 AM [facility] Calcium 9.7 8.5 - 10.5 mg/dL LAB CHEMISTRY METHOD 11/12/2024 9:51 AM [facility] Blood Venous blood specimen / Unknown Venipuncture / Unknown 11/12/2024 8:41 AM EDT 11/12/2024 9:16 AM EDT Danis Johnson DO LAB BLOOD ORDERABLES Final Resu lt [facility] [address] [place] [address], from Last 3 Months or Most Recently Relevant to Health Maintenance Insurance MEDICAID - [place] [employer] MEDICARE Member Subscriber Plan / Payer (Ef fective 2024-Present) Name:Rhona Alcantar Relation to Subscriber:Self Name:Rhona Alcantar Payer ID:[id number] Group ID:[id number] Type:Not on file Address: [address] [place] [address] Advance Directives * Full Code - Default [...] currently active code status orders. Care Teams Executive Vp Relationship Specialty Start Date End Date Sanjay Carl NP [address] [place] [address] PCP - General Family Medicine 06/30/24
--- OUTSIDE RECORDS SUMMARY | 2025-03-10 16:57 | XMS_ITS | Encounter Summary ---
Author Organization [facility] Address [address] [place] [address] Phone Care Team Providers Care Parts Consultant Name Role Phone Sole Hendricks MD Unavailable [phone] Sanjay Carl NP Primary Care Provider [phone] Encounter Details Date Type Department Care Team (Late st Contact Info) Description 05/27/2023 Procedure Pass [facility] Periop [address] [place] [address] Social History Tobacco Use Types Packs/Day Years [...] on filedocumented in this encounter Care Teams Parts Consultant Relationship Specialty Start Date End Date Sanjay Carl, SHOVEL ENGINEER [address] [facility] [address] PCP - General Nurse Practitioner 12/19/22 Sole Hendricks MD [facility] [address] Dermatology 12/12/22 documented as of this encounter Additional Source Comments The information contained in this document represents components of the legal health record. It is not the complete legal health record.[facility]
--- OUTSIDE RECORDS SUMMARY | 2025-03-10 16:57 | XMS_ITS | Continuity of Care Document ---
Author Organization [employer] Address [address] [place] [address] Care Team Providers Care Teacher Of The Deaf/Hard Of Hearing Name Role Phone HIM CCA OTHER [facility] Primary Care Provider Assessment Encounter Date Assessment Date Assessment LastModified by Organization Details LastModified Time 03/01/2025 03/01/2025 As noted, we wer e called to see this patient regarding concerns of conjunctivitis. Evaluation in the field was performed by my rear load truck driver colleague, as noted above, I provided real-time direction and supervision for this visit. patient states that she's been having on and off conjunctivitis since January. She was given an ointment which made it better last month. How're she ran out of the ointment. Patient denies any vision changes. She also states that she was just discharged from the hospital with the right foot infection. She was seen by wound care earlier today who did a dressing change. Patient also has a prescription for doxycycline. Wound care comes to her house and does dressing changes three times a week. Medic does not want to change the dressing given that we do not know what was placed which sounds appropriate. Patient is getting wound care at home and also has antibiotic started and therefore I cannot believe we need to intervene. Regarding her conjunctivitis we will start her on erythromycin ointment. Prescription was provided. Patient was advised to follow-up with her primary care physician. Impression: Conjunctivitis Plan: Follow-up PCP Primary care, consider x-rays, labs Disposition: We discussed the diagnostic uncertainty of home visits and the risk associated with this. In this case, the patient and I felt this to be an acceptable and reasonable amount of risk given the benefit of avoiding an ED visit. We discussed the need to seek care urgently/emergent ly in the setting of any new or worsening serious symptoms, particularly red streaking carlton going up the leg, fevers, loss of vision. [email or web address] Not available 03/01/2025 14:46:51 Plan of Treatment Reminders Order Date Submit Date Provider Last Modified By Organization Details Last Modified Time Details Appointments None recorded. Lab None recorded. Referral None recorded. Procedures None recorded. Surgeries None recorded. Imaging None recorded. Medication Orders erythromyci n 5 mg/gram (0.5 %) eye ointment 2024 025 [facility]/Pharmacy #[id number], [address] [place], [address], 14:41:26 Patient TargetsNo targets recorded. Patient InstructionsNo instructions recorded. Reason for Referral None Reported. Results Created Date Observation Date Name Description Value Unit Range Abnormal Flag Note LastModifiedBy Organization Detail LastModifiedTime Result Notes None recorded. Medical Equipment None Reported. Allergies Allergen ID Allergen Name Allergen Category Reaction Reaction Severity Criticality Documentation Date Start Date Code Code System Note Provider Name and Address Organization Details Recorded Time 25021 Ceclor medicatio n Not available Not available Not available 04/28/202421782 5 RxNorm Not Available [facility] - production 15:29:00 20423 sulfameth oxazole medicatio n Not available Not available Not available 04/28/2024 66631 RxNorm Not Available [facility] - production 09:05:30 77815 Substance with sulfonami de structure and antibacte rial mechanism of action (substanc e) medicatio n Not available Not available Not available 02/24/2025 72421 8003 [facility]ED [facility]30 14860 succinylc holine Not available anaphylax is dyspnea Not available Not available high 02/24/20252012 42160 RxNorm Per patie nt, respi rator y depre ssion /SOB after extub ation after recei ving this med for sedat ion anisain g a surge ry when she was 20 Not Available [place] - External Data Service - prod 15:44:39 82006 cefaclor medicatio n hives other Not available Not available Not available 02/24/20252012 2176 RxNorm Not Available [facility] - External Data Service - prod 5 15:45:09 73750 succinylc holine chloride medicatio n dyspnea other Not available Not available [facility] 02/24/20252023 3565 RxNorm Per patie nt, respi rator y depre ssion /SOB after extub ation after recei ving this med for sedat ion chaz g a surge ry when she was 20 Not Available [facility] - External Data Service - prod 5 15:45:09 16860 sulfadiaz ine medicatio n Not available Not available Not available 03/01/2025 84300 RxNorm Not Available [facility] - External Data Service - prod 5 17:18:00 54969 penicilli n V potassium medicatio n Not available Not available Not available 03/01/202515461 5 RxNorm Not Available [facility] - External Data Service - prod 5 17:20:41 86537 Vaccine product containin g only Clostridi um tetani antigen (medicina l product) medicatio n Not available Not available Not available 03/10/2025 47135 2003 SNOMED [facility] 5 15:50:10 7025 Product containin g penicilli n (product) medicatio n Not available Not available Not available 02/11/2024 75631 8001 SNOMED Not Available [facility] 4 03:34:22 7026 Bactrim medicatio n Not available Not available Not available 02/11/2024 55123 9 RxNorm [facility] 5 09:05:30 Medications Name Sig Start Date Stop Date Status Note LastModified by Organization Details LastModified Time vitamin b-1 100 mg tabs TAKE 1 TABLET BY MOUTH EVERY DAY. active Not Available Not Available No t Available vitamin b6 50 mg tabs TAKE 1 TABLET BY MOUTH EVERY DAY. active Not Available Not Available No t Available Prescription - Change active Not Available Not Available Not Available multivitamin tablet TAKE 1 TABLET BY MOUTH EVERY DAY active Not Available Not Available No t Available atorvastatin 40 mg tablet TAKE 1 TABLET BY MOUTH EVERY DAY active Not Available Not Available No t Available silver sulfadiazine 1 % topical cream APPLY TO AFFECTED AREA TWICE A DAY FOR 14 DAYS active Not Available Not Available No t Available acetaminophe n 325 mg tablet TAKE 2 TABLETS BY MOUTH THREE TIMES DAILY NEEDED FOR FEVER active Not Available Not Available No t Available gabapentin 600 mg tablet TAKE 1 TABLET BY MOUTH 3 TIMES A DAY active Not Available Not Available Not Available Mylanta Maximum Strength 400 mg-400 mg-40 mg/5 mL oral suspension TAKE 5ML BY MOUTH EVERY 6 HOURS NEEDED FOR REFLUX/NAUS EA active Not Available Not Available No t Available ropinirole 1 mg tablet TAKE 1 TABLET BY MOUTH EVERY DAY WITH 3 0.25MG TABLETS EVERY DAY - DECREASE BY 0.25MG MONTHLY TO SLOWLY TAPER OFF active Not Available Not Available No t Available clindamycin HCl 300 mg capsule TAKE 1 CAPSULE BY MOUTH EVERY 6 HOURS FOR 5 DAYS active Not Available Not Available No t Available ammonium lactate 12 % lotion APPLY TOPICALLY EVERY DAY active Not Available Not Available No t Available trazodone 50 mg tablet TAKE 1 TABLET BY MOUTH EVERY NIGHT AT BEDTIME NEEDED FOR SLEEP active Not Available Not Available No t Available nicotine (polacrilex) 2 mg gum CHEW 1 PIECE BY MOUTH EVERY 2 HOURS NEEDED FOR SMOKING CESSATION active Not Available Not Available No t Available ketotifen 0.025 % (0.035 %) eye drops INSTILL 1 DROP IN BOTH EYES TWICE DAILY FOR DISCOMFORT DUE TO PINK EYE active Not Available Not Available No t Available Nystop 100,000 unit/gram topical powder APPLY TOPICALLY TWICE DAILY active Not Available Not Available Not Available diltiazem CD 240 mg capsule,exte nded release 24 hr TAKE 1 CAPSULE BY MOUTH EVERY DAY active Not Available Not Available No t Available meloxicam 15 mg tablet TAKE 1 TABLET BY MOUTH DAILY active Not Available Not Available Not Available naltrexone 50 mg tablet TAKE 1 TABLET BY MOUTH EVERY DAY IN THE MORNING active Not Available Not Available No t Available prednisone 20 mg tablet TAKE 1 TABLET BY MOUTH EVERY DAY FOR 5 DAYS active Not Available Not Available No t Available clonazepam 0.5 mg tablet TAKE 1 TABLET BY MOUTH THREE TIMES A DAY active Not Available Not Available Not Available clonazepam 1 mg tablet TAKE 1 TABLET BY MOUTH TWICE DAILY NEEDED active Not Available Not Available No t Available thiamine HCl (vitamin B1) 100 mg tablet TAKE 1 TABLET BY MOUTH EVERY DAY active Not Available Not Available No t Available meclizine 12.5 mg tablet TAKE 1 TABLET BY MOUTH THREE TIMES DAILY FOR 7 DAYS NEEDED FOR DIZZINESS active Not Available Not Available No t Available aspirin 81 mg tablet,delay ed release TAKE 1 TABLET BY MOUTH EVERY DAY active Not Available Not Available No t Available amitriptylin e 50 mg tablet TAKE 1 TABLET BY MOUTH AT BEDTIME active Not Available Not Available No t Available acetaminophe n 500 mg tablet TAKE 1 TABLET BY MOUTH EVERY 4 HOURS NEEDED FOR PAIN FOR 30 DAYS active Not Available Not Available No t Available baclofen 20 mg tablet TAKE 1 TABLET BY MOUTH FOUR TIMES A DAY FOR 30 DAYS active Not Available Not Available Not Available terbinafine HCl 250 mg tablet TAKE 1 TABLET BY MOUTH EVERY DAY active Not Available Not Available No t Available methenamine hippurate 1 gram tablet TAKE 1 TABLET BY MOUTH TWICE A DAY active Not Available Not Available No t Available ropinirole 0.25 mg tablet TAKE 3 TABLETS BY MOUTH EVERY DAY WITH 1 1MG TABLET AT 4PM - DECREASE BY 0.25MG MONTHLY TO SLOWLY TAPER OFF active Not Available Not Available No t Available baclofen 10 mg tablet TAKE 1 TABLET BY MOUTH 4 TIMES DAILY NEEDED FOR MUSCLE SPASM active Not Available Not Available No t Available ropinirole 2 mg tablet TAKE 1 TABLET BY MOUTH DAILY AT BEDTIME active Not Available Not Available N ot Available pantoprazole 40 mg tablet,delay ed release TAKE 1 TABLET BY MOUTH DAILY active Not Available Not Available Not Available erythromycin 5 mg/gram (0.5 %) eye ointment APPLY 1 CM RIBBON INTO THE LOWER CONJUNCTIVA L SAC(S) IN THE AFFECTED EYE(S) BY OPHTHALMIC ROUTE 3 TIMES PER DAY 2024 active Not Available Not Available Not Avai lable buspirone 30 mg tablet TAKE 1 TABLET BY MOUTH TWICE A DAY active Not Available Not Available No t Available tobramycin 0.3 % eye drops INSTILL 1 DROP IN RIGHT EYE EVERY 4 HOURS FOR 5 DAYS active Not Available Not Available No t Available ropinirole 0.5 mg tablet TAKE 1 TABLET BY MOUTH DAILY 1 TO 3 HOURS BEFORE BEDTIME EVERY NIGHT active Not Available Not Available Not Available prednisone 50 mg tablet TAKE 1 TABLET BY MOUTH EVERY DAY FOR 5 DAYS active Not Available Not Available No t Available clonazepam 2 mg tablet TAKE 1/2 TABLET TWICE A DAY BY MOUTH active Not Available Not Available No t Available levothyroxin e 150 mcg tablet TAKE 1 TABLET BY MOUTH DAILY 6 DAYS WEEKLY AND 2 TABS ON THE 7TH DAY active Not Available Not Available Not Available calcium 200 mg (as calcium carbonate 500 mg) chewable tablet CHEW 1 TABLET BY MOUTH EVERY DAY active Not Available Not Available No t Available Tobrex 0.3 % eye ointment APPLY 1 THIN LAYER TO BOTH EYES THREE TIMES DAILY FOR 14 DAYS active Not Available Not Available Not Available oxycodone 5 mg capsule PLEASE SEE ATTACHED FOR DETAILED DIRECTIONS active Not Available Not Available N ot Available nicotine 21 mg/24 hr daily transdermal patch APPLY 1 PATCH TO SKIN EVERY MORNING REMOVE AT BEDTIME. DO NOT SMOKE WHILE WEARING PATCH. active Not Available Not Available No t Available Prevalite 4 gram powder for suspension in a packet MIX AND DRINK 1 PACKET BY MOUTH TWICE DAILY active Not Available Not Available No t Available pyridoxine (vitamin B6) 50 mg tablet TAKE 1 TABLET BY MOUTH EVERY DAY active Not Available Not Available No t Available gabapentin 300 mg capsule TAKE 1 CAPSULE BY MOUTH WEEKLY NEEDED IN ADDITION TO 600MG CAPSULES - MAX 1200MG THREE TIMES DAILY active Not Available Not Available No t Available folic acid 1 mg tablet TAKE 1 TABLET BY MOUTH EVERY DAY active Not Available Not Available No t Available ammonium lactate 12 % topical cream APPLY TOPICALLY TO THE AFFECTED AREA TWICE DAILY active Not Available Not Available No t Available ibuprofen 600 mg tablet PLEASE SEE ATTACHED FOR DETAILED DIRECTIONS active Not Available Not Available N ot Available estradiol 0.01% (0.1 mg/gram) vaginal cream APPLY A DIME SIZED TO THE EXTERNAL VAGINAL TISSUE THREE TIMES A WEEK active Not Available Not Available No t Available ferrous sulfate 325 mg (65 mg iron) tablet,delay ed release TAKE 1 TABLET BY MOUTH EVERY OTHER DAY active Not Available Not Available No t Available fluocinonide 0.05 % topical cream active Not Available Not Available Not Available ondansetron 4 mg disintegrati ng tablet Place 1 tablet by translingua l route. 2022 active Not Available Not Available Not Avai lable fluticasone propionate 50 mcg/actuatio n nasal spray,suspen james SPRAY 1 PUFF INTO EACH NOSTRIL TWICE DAILY. SHAKE BEFORE USE active Not Available Not Available N ot Available clotrimazole 1 % topical cream APPLY TOPICALLY BETWEEN TOES TWICE DAILY FOR 14 DAYS active Not Available Not Available No t Available amitriptylin e 100 mg tablet TAKE 1 TABLET BY MOUTH AT BEDTIME active Not Available Not Available No t Available doxycycline hyclate 100 mg tablet TAKE 1 TABLET BY MOUTH TWICE A DAY FOR 7 DAYS active Not Available Not Available No t Available dicyclomine 10 mg capsule TAKE 1 CAPSULE BY MOUTH FOUR TIMES DAILY NEEDED FOR ABDOMINAL CRAMPS active Not Available Not Available No t Available loratadine 10 mg tablet TAKE 1 TABLET BY MOUTH EVERY DAY active Not Available Not Available No t Available Murine Ear 6.5 % drops INSTILL 5 DROPS INTO BOTH EARS 3 TIMES DAILY FOR 7 DAYS active Not Available Not Available N ot Available naproxen 500 mg tablet TAKE 1 TABLET BY MOUTH TWICE A DAY FOR 30 DAYS active Not Available Not Available No t Available Ventolin HFA 90 mcg/actuatio n aerosol inhaler INHALE 2 PUFFS EVERY 6 HOURS NEEDED FOR WHEEZING active Not Available Not Available No t Available simethicone 80 mg chewable tablet CHEW AND SWALLOW 1 TABLET BY MOUTH FOUR TIMES DAILY NEEDED FOR GAS active Not Available Not Available No t Available oxycodone 5 mg tablet TAKE 1 TABLET BY MOUTH EVERY 12 HOURS FOR 7 DAYS active Not Available Not Available N ot Available neomycin 3.5 mg/g-polymyx in B 10,000 unit/g-dexam eth 0.1 % eye oint APPLY A SMALL AMOUNT INTO THE CONJUNCTIVA L SAC(S) IN both EYES BY OPHTHALMIC ROUTE , then apply small amount to lid margins 3 TIMES PER DAY x 7 days 2024 active Not Available Not Available Not Avai lable azithromycin 500 mg tablet TAKE 1 TABLET BY MOUTH EVERY DAY FOR 5 DAYS active Not Available Not Available No t Available aripiprazole 10 mg tablet TAKE 1 TABLET BY MOUTH EVERY DAY IN THE MORNING active Not Available Not Available No t Available aripiprazole 20 mg tablet TAKE 1 TABLET BY MOUTH EVERY MORNING active Not Available Not Available No t Available nicotine (polacrilex) 4 mg buccal lozenge DISSOLVE 1 LOZENGE BY MOUTH EVERY HOUR FOR 8 WEEKS active Not Available Not Available No t Available cyclobenzapr ine 5 mg tablet TAKE 1 TABLET BY MOUTH 3 TIMES A DAY FOR 7 DAYS active Not Available Not Available N ot Available nitrofuranto in monohydrate/ macrocrystal s 100 mg capsule TAKE 1 CAPSULE BY MOUTH TWO TIMES A DAY. NEXT DOSE IS AT 10/30 PM AND LAST DOSE IS ON 11 PM. active Not Available Not Available No t Available duloxetine 30 mg capsule,rico yed release TAKE ONE CAPSULE BY MOUTH EVERY MORNING active Not Available Not Available No t Available duloxetine 60 mg capsule,rico yed release TAKE 1 CAPSULE BY MOUTH TWICE A DAY active Not Available Not Available No t Available Gas Relief Extra Strength 125 mg chewable tablet CHEW 1 TABLET BY MOUTH FOUR TIMES DAILY active Not Available Not Available Not Available sodium chloride 1,000 mg soluble tablet TAKE 1 TABLET BY MOUTH EVERY DAY active Not Available Not Available No t Available Soothe Regular Strength 262 mg/15 mL oral suspension TAKE 15ML BY MOUTH FOUR TIMES DAILY NEEDED FOR DYSPEPSIA . DO NOT EXCEES 240ML EVERY DAY active Not Available Not Available No t Available diclofenac 1 % topical gel APPLY TO RIGHT SHOULDER TWICE DAILY NEEDED FOR PAIN active Not Available Not Available No t Available cholecalcife rol (vitamin D3) 50 mcg (2,000 unit) capsule TAKE 1 CAPSULE BY MOUTH DAILY active Not Available Not Available Not Available Fiber Therapy (methylcellu lose-sugar) 2 gram/19 gram oral powder DISSOLVE 2 GRAMS IN BEVERAGE AND DRINKM ONCE DAILY active Not Available Not Available N ot Available Myrbetriq 25 mg tablet,exten ded release TAKE 1 TABLET BY MOUTH EVERY DAY active Not Available Not Available No t Available guaifenesin ER 600 mg tablet, extended release 12 hr Take 1 tablet every 12 hours by oral route for 7 days. 2024 active Not Available Not Available Not Avai lable Incruse Ellipta 62.5 mcg/actuatio n powder for inhalation 1 PUFFS INHALATION EVERY 24 HOURS,X24 HR,INSTR:AP ART. active Not Available Not Available No t Available multivitamin -minerals-ir on fumarate 7.5 mg-folic acid 400 mcg tablet TAKE 1 TABLET BY MOUTH EVERY DAY. active Not Available Not Available No t Available nicotine (polacrilex) 2 mg buccal mini lozenge TAKE 1 LOZENGE BY MOUTH EVERY 2 HOURS FOR SIX WEEKS active Not Available Not Available No t Available Ozempic 0.25 mg or 0.5 mg (2 mg/1.5 mL) subcutaneous pen injector INJECT 0.5 MG SUBCUTANEOU S EVERY WEEK active Not Available Not Available No t Available [facility] COVID-19 Ag Self Test kit TEST DIRECTED TODAY active Not Available Not Available No t Available Daily-Garry (with folic acid) 400 mcg tablet TAKE 1 TABLET BY MOUTH EVERY DAY active Not Available Not Available No t Available Ozempic 0.25 mg or 0.5 mg (2 mg/3 mL) subcutaneous pen injector INJECT 0.5MG SUBCUTANEOU SLY EVERY 7 DAYS active Not Available Not Available No t Available Vitals Date Recorded Respiratory rate Oxygen saturation Body temperature Body weight Heart rate Body height Systolic And Diastolic Provider Name and Address Organization Details Last Updated DateTime 5 18 /min 99 % 97.1 [degF] 82969.8 16 g 72 /min 152.4 cm 137/77 mm[Hg] Not Available [facility] - production 5 14:36:32 Social History None recorded. Functional Status None recorded. Mental Status None recorded. Family History Nothing Reported. Medical History No medical history recorded. Gynecological HistoryNo gynecological history recorded. Obstetrics History GPAL:G 0 P 0 0 0 0 Past Encounters Encounter ID Performer Location Encounter Start Date Encounter Closed Date Diagnosis/Indication Diagnosis SNOMED-CT Code Diagnosis ICD10 Code Diagnosis IMO Codes Diagnosis Note [id number] Ondina Velazquez MD [address] [address] 02/02/2025 16:01:19 02/03/2025 12:13:10 Bacterial conjunctivitis 190916631 H10.9 61565 w/ blephariti sAdvised to throw out any eye make-up she has used in the past weekAdvise d to avoid rubbing or scratching the eyes, good handwashin g before and after applying the eye ointment.A dvised to be careful not to touch the tip of the tube to the infected eye(s)/exp lained the eye ointment will make her vision slightly blurry but because of the blephariti s need to apply ointment to the lids as well after warm compresses 3 times a day. She has used eye ointment before she relates to the medic. She does not currently have an ophthalmol ogist, so advised follow-up with PCP if not improving 3 days, as may need more in-depth an exam that our service can provide.-S he verbalized understand ing to the medic [id number] Mary Cosme MD [address] [address] 02/24/2025 11:21:17 02/24/2025 13:01:47 Common cold [id number] J00 [id number] Ilia Wilkins MD [address] [address] 03/01/2025 14:36:25 03/01/2025 17:54:10 Bilateral acute conjunctivitis [id number] H10.33 [id number] Health Concerns Section Related Observation LastModified by Organization Detai ls LastModified Time None Recorded Concern Status LastModified by Organization Details LastModified Time None Recorded Payers Encounter Date Sequence Insurance Name Policy Number Policy Barba Covered Member ID Barba Member ID Guarantor Name 03/01/2025 1 [facility] - DOS ON OR AFTER 2022 - DUAL ELIGIBLE - CORRECTION OPTIONS AND ONE CARE (MEDICARE REPLACEMENT/ADV ANTAGE - HMO) Rhona Gandara [id number] Rhona Gandara Notes Date Note Type Note Provider Name and Address Organization Details Recorded Time 03/01/2025 text/html ROS as noted in the [facility] Nurse Triage Notes (Jody Moe): Reason For Request: Person has conjunctivitis in both eyes, and a wound/ infection in her foot, was in Hospital yesterday, and they did not tell her how to fix her foot, but confirmed the infection is not to the bone. Patient Reports: Rash Denies: Leos Flash, circumferential leos Leos reported with black tissue to the area Open skin area after a fall with uncontrolled bleeding Abscess/infection with streaking noted, presence of fever or without Fever and chills noted in setting of wound Bites -bugs, spider Abscess Chief Complaints: Eye Complaint, Wound Care PMH: COPD/Asthma, Gastroesophageal Reflux Disease (GERD), Hypothyroidism, Hypertension, Substance Use Disorder PMH Reviewed at 03/01/2025: Allergies Reviewed at 03/01/2025 - :22 Comments: 70 y.o female complains of Eye Complaint, Wound Care Patient has concerns about conjunctivitis. She reports that both eyes are red, itchy, gritty, and have had discharge since last week. She went to the ER on and reported she does not have an eye infection, but she feels the symptoms are worsening. She denies any fever or chills She also has a wound on the right foot, between the big toe. She had a fungal infection, but she feels it is now a wound. She was given ointment, but she does not feel it is working. She also stated that they were sending doxy but she has not picked it up. I provided information on the [facility] provider response time and advised the patient and/or caregiver to monitor reported signs and symptoms. I discussed the warning signs of when to seek emergency care. ...................... ...................... ...................... ...................... ...................... ...................... ......... [employer] Supervisor Note From Volodymyr Danielle: 70 year-old female with multiple complaints after discharge yesterday. Patient states she was in for hyponatremia or hypovolemia but unsure. But symptoms resolved and they sent her home with a home care plan. Her main complaint is she woke up with crusty gritty eyes and they are still itchy and she had conjunctivitis sometime in January with erythromycin ointment prescribed and relief, but has run out of the ointment. Patient second complaint was that she has a wound on her right foot between the toes and it is a hole in her foot with home care team showing up this morning and cleaning and wrapping the foot and doing the initial induction into the wound care team with scheduled visits times three per week. Patient has gauze and saline to wash the wound. Patient was putting on a ointment but does not have any antibiotic ointment currently. Hospital sent her home with some antifungal ointment that Lety told her not to use. Patient is to be under the career of the wound care team/clinic. No other complaints but has a C6 fracture with C collar in place and seeing neurosurgery for resolution in March. Pictures of I sent and discussion with Dr Wilkins who prescribed a erythromycin ointment which will [facility] delivered [facility]. [facility] sometime today so advised her to call [facility] and just see if they can add that to the delivery. Patient agreed to try but thought his rounds would not allow that for delivery. Gave red flag warnings about the foot and when to call back. All concerns addressed all questions answered. Patient thanked us for a visit walked me to the door and was in no distress. Right foot was wrapped and taped with no visible seepage and the wound care team had seen it within the last four hours so it did not remove the wrappings as she did not have a lot of supplies, but nurse was coming tomorrow to look at it again. ...................... ...................... ...................... ...................... ...................... ...................... ......... [facility] [place]: Ilia Wilkins ...................... ...................... ...................... ...................... ...................... ...................... ......... Disposition: Fulfilled ...................... ...................... ...................... ...................... ...................... ...................... ......... 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 Patient states she was in for hyponatremia or hypovolemia but unsure. But symptoms resolved and they sent her home with a home care plan. Her main complaint is she woke up with crusty gritty eyes and they are still itchy and she had conjunctivitis sometime in January with erythromycin ointment prescribed and relief, but has run out of the ointment. Patient second complaint was that she has a wound on her right foot between the toes and it is a hole in her foot with home care team showing up this morning and cleaning and wrapping the foot and doing the initial induction into the wound care team with scheduled visits times three per week. Patient has gauze and saline to wash the wound. Patient was putting on a ointment but does not have any antibiotic ointment currently. Hospital sent her home with some antifungal ointment that Lety told her not to use. Patient is to be under the career of the wound care team/clinic. No other complaints but has a C6 fracture with C collar in place and seeing neurosurgery for resolution in March. Pictures of eye sent and discussion with Dr Wilkins who prescribed a erythromycin ointment which will be delivered tomorrow by her [facility]. Patient s [facility] is currently delivering her [facility]ine sometime today so advised her to call [facility] and just see if they can add that to the delivery. Patient agreed to try but thought his rounds would not allow that for delivery. Gave red flag warnings about the foot and when to call back. All concerns addressed all questions answered. Patient thanked us for a visit walked me to the door and was in no distress. Right foot was wrapped and taped with no visible seepage and the wound care team had seen it within the last four hours so it did not remove the wrappings as she did not have a lot of supplies, but nurse was coming tomorrow to look at it again. Ilia Wilkins MD [address] [facility],[address], [place], [address], [employer] 03/01/2025 15:22:44 OBGyn Episode No OBEpisode recorded.
--- OUTSIDE RECORDS SUMMARY | 2025-03-10 16:57 | XMS_ITS | Encounter Summary ---
Author Organization [facility] Address [address] [place] [address] [place] [id number] Phone Care Team Providers Care Radiology Aide Name Role Phone Sole Hendricks MD Unavailable [phone] Sanjay Carl SENIOR BIOSTATISTICIAN/GROUP LEADER Primary Care Provider [phone] Encounter Details Date Type Department Care Team (Late st Contact Info) Description 02/01/2023 Procedure Pass OR Admitting Dept - Virtual Department [address] [place] [address] Social History Tobacco Use Types Packs/Day Years [...] on filedocumented in this encounter Care Teams Radiology Aide Relationship Specialty Start Date End Date Sanjay Carl, SENIOR BIOSTATISTICIAN/GROUP LEADER [address] [place] [id number] PCP - General Nurse Practitioner 12/19/22 Sole Hendricks MD [address] [place] [address] Dermatology 12/12/22 documented as of this encounter Additional Source Comments The information contained in this document represents components of the legal health record. It is not the complete legal health record.[facility]
--- OUTSIDE RECORDS SUMMARY | 2025-03-10 16:57 | XMS_ITS | Encounter Summary ---
Author Organization [facility] Address [address] [place] [address] Phone Care Team Providers Care Furniture Packer Name Role Phone Sole Hendricks MD Unavailable Sanjay Carl NP Primary Care Provider [phone] Encounter Details Date Type Department Care Team (Late st Contact Info) Description 05/20/[address] [facility] Periop [address] [place] [address] Social History Tobacco Use Types Packs/Day Years [...] filedocumented in this encounter Care Teams Furniture Packer Relationship Specialty Start Date End Date Sanjay Carl, SIGNALS OFFICER [address] [place] [address] PCP - General Nurse Practitioner 12/19/22 Sole Hendricks MD [facility] [place] [address] Dermatology 12/12/22 documented as of this encounter Additional Source Comments The information contained in this document represents components of the legal health record. It is not the complete legal health record.[facility]
--- OUTSIDE RECORDS SUMMARY | 2025-03-10 16:57 | XMS_ITS | Continuity of Care Document ---
Author Organization [place] - [facility], [facility], formerly [facility] Address [address] [place] [address] Care Team Providers Care Aviation Tactical Readiness Officer Name Role Phone LESA MONZON Primary Care Provider [phone] Assessment Encounter Date Assessment Date Assessment LastModified by Organization Details LastModified Time 01/08/2025 01/08/2025 70 year old female, with a history of chronic migraine, presents for evaluation of chronic sinusitis. CT head without contrast performed 01/05/25 at [facility] showed no parenchymal hemorrhage, midline shift, or mass effect. Paranasal sinuses and mastoid air cells are also clear. Recommend skin prick testing to assess the severity of her allergies. I also provided her the Migraine More than a Headache booklet which lists many environmental and dietary triggers that can lead to migraines, as well as ways to manage these symptoms. She may try dietary supplements such as magnesium, Vitamin B2, and feverfew (or Migranol which contains a combination of all three) to help control migrainous phenomena. Additionally, the patient was encouraged to keep a migraine diary to assist with identifying and eliminating potential triggers. Follow up for review of results. All questions were answered. [email or web address] Not available 01/10/2025 16:11:06 Plan of Treatment Reminders Order Date Submit Date Provider Last Modified By Organization Details Last Modified Time Details Appointments None recorded. Lab None recorded. Referral None recorded. Procedures allergy testing, skin prick (PROC) 2024 025 [email or web address] Not available 13:49:13 intraderma l allergy skin testing (PROC) 2024 025 [email or web address] Not available 09/29/202 5 13:49:13 pulmonary function test procedure (PROC) 2024 025 [email or web address] Not available 5 13:49:13 pulse oximetry (PROC) 2024 025 [email or web address] Not available 5 13:49:13 Surgeries None recorded. Imaging None recorded. Medication Orders None recorded. Patient TargetsNo targets recorded. Patient InstructionsNo instructions recorded. Reason for Referral None Reported. Results Created Date Observation Date Name Description Value Unit Range Abnormal Flag Note LastModifiedBy Organization Detail LastModifiedTime 01/12/2001/05/2025 CT, head + brain , w/o contr ast No observ ation record ed. [email or web address] Not Available 12/15 11:03:54 Result Notes None recorded. Problems Name Problem SNOMED Code Status Onset Date Resolution Date Notes Provider Name and Address Organization Details Recorded Time Difficult y speaking Active 2014 Symptoms involving head and neck: Hoarsenes s; Note: Date Diagnosed : 08/30/2014 2:05 PM (784.42) Not Available [facility] 4 02:32:49 Harmful pattern of use of alcohol 87951425 Active 2018 Alcohol use disorder, mild; Note: Date Diagnosed : 08/11/2018 4:23 PM (F10.10) Not Available [facility] 4 02:32:48 Impacted cerumen of bilateral ears [id number] 22162 Active 2018 Impacted cerumen, bilateral ; Note: Date Diagnosed : 08/11/2018 4:23 PM (H61.23) Not Available [facility] 4 02:32:50 Dysphonia 52289088 Active 2018 Hoarsenes s; Note: Date Diagnosed : 08/11/2018 4:23 PM (R49.0) Not Available [facility] 4 02:32:41 Tobacco dependenc e caused by cigarette s [id number] 998651 Active 2018 Nicotine dependenc e, cigarette s, uncomplic ated; Note: Date Diagnosed : 08/11/2018 4:23 PM (F17.210) Not Available [facility] 4 02:32:39 Edema of larynx 09512384 Active 2018 Edema of larynx; Note: Date Diagnosed : 08/11/2018 4:23 PM (J38.4) Not Available [facility] 4 02:32:51 Chronic rhinitis 77507968 Active 2018 Rhinitis, chronic; Note: Date Diagnosed : 08/30/2014 2:05 PM (472.0) ; Start Date : 5 Chronic rhinitis; Note: Date Diagnosed : 08/11/2018 4:23 PM (J31.0) Not Available [facility] 4 02:32:46 Dysphagia 57421736 Active 2018 Dysphagia , unspecifi ed; Note: Date Diagnosed : 08/11/2018 4:23 PM (R13.10) Not Available [facility] 4 02:32:46 Bilateral tinnitus 07515148604 02 Active 2021 Tinnitus, bilateral ; Note: Date Diagnosed : 03/23/2022 10:21 AM (H93.13) Not Available [facility] 4 02:32:44 Migraine without aura, not refractor y 925970173 Active 2021 Migraine without aura, not intractab le, without status migrainos us; Note: Date Diagnosed : 03/23/2022 12:11 PM (G43.009) Not Available [facility] 4 02:32:42 Dizziness and giddiness 919067361 Active 2021 Dizziness and giddiness ; Note: Date Diagnosed : 03/23/2022 10:21 AM (R42) Not Available [facility] 4 02:32:40 Sensorine ural hearing loss 27378239 Active 2021 Sensorine ural hearing loss, unilatera l, left ear, with unrestric shane hearing on the contralat eral side; Note: Date Diagnosed : 03/23/2022 10:21 AM (H90.42) Not Available [facility] 4 02:33:00 Sensorine ural hearing loss of bilateral ears 981989882 Active 2022 Sensorine ural hearing loss, bilateral ; Note: Date Diagnosed : 12/27/2022 11:59 AM (H90.3) Not Available [facility] 4 02:32:43 Abnormal sensation [id number] [facility] [address], [place], [place], [address] , [facility] - [facility] 5 17:09:11 Migraine 97626161 Active 2024 [address] A[address], [place], [place], [address] , [facility] - [facility] 5 16:05:47 Allergic rhinitis [id number] [facility] [address], [place], [place], [address] , [facility] 5 16:06:08 Problem Notes None recorded. Medical Equipment None Reported. Allergies Allergen ID Allergen Name Allergen Category Reaction Reaction Severity Criticality Documentation Date Start Date Code Code System Note Provider Name and Address Organization Details Recorded Time 35697 Ceclor medicatio n other Not available Not available 08/27/202320195 5 RxNorm React ion: unkno wn, unspe cifie d;; Not Available [facility] 4 00:56:50 08291 penicilli n V potassium medicatio n other Not available Not available 08/27/202395712 5 RxNorm React ion: unkno wn, unspe cifie d;; Not Available [facility] 4 00:56:55 94530 Substance with sulfonami de structure and antibacte rial mechanism of action (substanc e) medicatio n other Not available Not available 08/27/2023 06819 8003 SNOMED React ion: unkno wn, unspe cifie d;; Not Available [facility] 4 00:56:56 Medications Name Sig Start Date Stop Date Status Note LastModified by Organization Details LastModified Time multivita min tablet TAKE 1 TABLET BY MOUTH EVERY DAY active Not Available Not Available No t Available fluoxetin e 40 mg capsule TAKE 1 CAPSULE BY MOUTH EVERY DAY IN THE MORNING active Not Available Not Available No t Available atorvasta tin 40 mg tablet TAKE 1 TABLET BY MOUTH EVERY DAY active Not Available Not Available No t Available silver sulfadiaz ine 1 % topical cream APPLY TO AFFECTED AREA TWICE A DAY FOR 14 DAYS 01/05 completed Not Available Not Available Not Available nystatin 100,000 unit/mL oral suspensio n RINSE WITH 5 ML FOR 3 MINUTES 4 TIMES DAILY AND SPIT OUT FOR 14 DAYS. active Not Available Not Available No t Available acetamino phen 325 mg tablet active Medicati on ID: [id number] B rand Name: acetamin ophen Se nd Method: E-Prescr ibed Sub s Allowed: subs OK Medic ationGen ericName : acetamin ophen Not Available Not Available Not Available prednison e 10 mg tablet PLEASE SEE ATTACHED FOR DETAILED DIRECTIO NS active Not Available Not Available No t Available nitrofura ntoin macrocrys inocencio 50 mg capsule 01/25 completed Medicati on ID: [id number] D uration Value: 30 Brand Name: nitrofur antoin macrocry stal Sen d Method: E-Prescr ibed Sub s Allowed: subs OK Speci al Instruct ion: TK 1 C PO QD Medic ationGen ericName : nitrofur antoin macrocry stal Not Available Not Available Not Available oxybutyni n chloride ER 15 mg tablet,ex tended release 24 hr 01/25 completed Medicati on ID: [id number] D uration Value: 30 Brand Name: oxybutyn in chloride Send Method: E-Prescr ibed Sub s Allowed: subs OK Medic ationGen ericName : oxybutyn in chloride Not Available Not Available Not Available gabapenti n 600 mg tablet 1 TABLET BY MOUTH 3 TIMES A DAY,X90 DAYS active Not Available Not Available No t Available doxycycli ne hyclate 100 mg capsule TAKE 1 CAPSULE BY MOUTH TWICE A DAY FOR 10 DAYS 01/05 completed Not Available Not Available Not Available loperamid e 2 mg capsule TAKE 1 CAPSULE BY MOUTH EVERY 4 HOURS NEEDED LOOS STOOL active Not Available Not Available No t Available trazodone 50 mg tablet TAKE 1 TABLET BY MOUTH EVERY NIGHT AT BEDTIME NEEDED FOR SLEEP active Not Available Not Available No t Available ofloxacin 0.3 % eye drops ADMINIST ER 1 DROP INTO BOTH EYES 4 TIMES A DAY FOR 7 DAYS. 01/05 completed Not Available Not Available Not Available nystatin 100,000 unit/gram topical ointment PLEASE SEE ATTACHED FOR DETAILED DIRECTIO NS active Not Available Not Available No t Available ketotifen 0.025 % (0.035 %) eye drops active Medicati on ID: [id number] B rand Name: ketotife n fumarate Send Method: E-Prescr ibed Sub s Allowed: subs OK Medic ationGen ericName : ketotife n fumarate Not Available Not Available Not Available ondansetr on HCl 8 mg tablet TAKE 1 TABLET BY MOUTH EVERY 8 HOURS NEEDED FOR NAUSEA AND VOMITING active Not Available Not Available No t Available diltiazem CD 240 mg capsule,e xtended release 24 hr TAKE 1 CAPSULE BY MOUTH EVERY DAY active Not Available Not Available No t Available meloxicam 15 mg tablet active Medicati on ID: [id number] B rand Name: meloxica m Send Method: E-Prescr ibed Sub s Allowed: subs OK Medic ationGen ericName : meloxica m Not Available Not Available Not Available naltrexon e 50 mg tablet TAKE 1 TABLET BY MOUTH EVERY DAY IN THE MORNING active Not Available Not Available No t Available prednison e 20 mg tablet TAKE 1 TABLET BY MOUTH EVERY DAY FOR 5 DAYS active Not Available Not Available No t Available clonazepa m 0.5 mg tablet TAKE 1 TABLET BY MOUTH EVERY DAY NEEDED FOR ANXIETY active Not Available Not Available No t Available sertralin e 100 mg tablet TAKE 1 TABLET BY MOUTH EVERY DAY active Not Available Not Available No t Available thiamine HCl (vitamin B1) 100 mg tablet TAKE 1 TABLET BY MOUTH EVERY DAY active Not Available Not Available No t Available Nexium 40 mg capsule,d elayed release 01/25 completed Medicati on ID: [id number] Du ration Value: 30 Brand Name: Nexium S end Method: E-Prescr ibed Sub s Allowed: subs OK Speci al Instruct ion: TK 1 C PO QD Medic ationGen ericName : Nexium Not Available Not Available Not Available aspirin 81 mg tablet,de layed release TAKE 1 TABLET BY MOUTH EVERY DAY active Not Available Not Available No t Available tramadol 50 mg tablet 03/23 completed Medicati on ID: [id number] B rand Name: tramadol Send Method: E-Prescr ibed Sub s Allowed: subs OK Medic ationGen ericName : tramadol Not Available Not Available Not Available amitripty line 50 mg tablet TAKE 1 TABLET BY MOUTH AT BEDTIME active Not Available Not Available No t Available acetamino phen 500 mg tablet TAKE 1 TABLET BY MOUTH EVERY 6 HOURS,X3 0 DAYS NEEDED FOR PAIN active Not Available Not Available No t Available butalbita l-acetami nophen-ca ffeine 50 mg-325 mg-40 mg tablet TAKE 1-2 TAB ORALLY EVERY 4 TO 6 HRS NEEDED FOR HEADACHE FOR 7 DAYS MAX 4 TABS PER DAY active Not Available Not Available No t Available Cholestyr amine Light 4 gram powder for suspensio n in a packet active Medicati on ID: [id number] B rand Name: Cholesty ramine Light Se nd Method: E-Prescr ibed Sub s Allowed: subs OK Medic ationGen ericName : Cholesty ramine Light Not Available Not Available Not Available baclofen 20 mg tablet TAKE 1 TABLET (20 MG) ORALLY 4 TIMES A DAY FOR 30 DAYS active Not Available Not Available No t Available methenami ne hippurate 1 gram tablet TAKE 1 TABLET BY MOUTH TWICE A DAY 01/05 completed Not Available Not Available Not Available citalopra m 20 mg tablet 03/23 completed Medicati on ID: [id number] Du ration Value: 30 Brand Name: citalopr am Send Method: E-Prescr ibed Sub s Allowed: subs OK Speci al Instruct ion: TK 1 T PO QD FOR MORNING Medicati onGeneri cName: citalopr am Not Available Not Available Not Available amitripty line 25 mg tablet TAKE 1 TABLET BY MOUTH EVERYDAY AT BEDTIME active Not Available Not Available No t Available ascorbic acid (vitamin C) 250 mg tablet TAKE 1 TABLET BY MOUTH EVERY DAY active Not Available Not Available No t Available baclofen 10 mg tablet 03/23 completed Medicati on ID: [id number] B rand Name: baclofen Send Method: E-Prescr ibed Sub s Allowed: subs OK Medic ationGen ericName : baclofen Not Available Not Available Not Available econazole nitrate 1 % topical cream APPLY TO AFFECTED AREAS ON THE FEET TWICE DAILY FOR TWO WEEKS. THEN ONCE WEEKLY FOR MAINTENA NCE. active Not Available Not Available No t Available ropinirol e 2 mg tablet TAKE 1 TABLET BY MOUTH DAILY AT BEDTIME active Not Available Not Available No t Available pantopraz ole 40 mg tablet,de layed release TAKE 1 TABLET BY MOUTH DAILY active Not Available Not Available No t Available erythromy debra 5 mg/gram (0.5 %) eye ointment APPLY TO BOTH EYES EVERY 6 (SIX) HOURS FOR 5 DAYS. 01/05 completed Not Available Not Available Not Available buspirone 30 mg tablet TAKE 1 TABLET BY MOUTH TWICE A DAY active Not Available Not Available No t Available ferrous sulfate 325 mg (65 mg iron) tablet 03/23 completed Medicati on ID: [id number] D uration Value: 30 Brand Name: ferrous sulfate Send Method: E-Prescr ibed Sub s Allowed: subs OK Medic ationGen ericName : ferrous sulfate Not Available Not Available Not Available ropinirol e 0.5 mg tablet active Medicati on ID: [id number] B rand Name: ropiniro le Send Method: E-Prescr ibed Sub s Allowed: subs OK Medic ationGen ericName : ropiniro le Not Available Not Available Not Available buspirone 10 mg tablet TAKE 2 TABLETS BY MOUTH TWICE A DAY active Not Available Not Available No t Available prednison e 50 mg tablet TAKE 1 TABLET BY MOUTH EVERY DAY FOR 5 DAYS active Not Available Not Available No t Available clonazepa m 2 mg tablet TAKE 1/2 TABLET TWICE A DAY BY MOUTH active Not Available Not Available No t Available levothyro xine 150 mcg tablet TAKE 1 TABLET BY MOUTH EVERY DAY active Not Available Not Available No t Available calcium 200 mg (as calcium carbonate 500 mg) chewable tablet CHEW 1 TABLET BY MOUTH EVERY DAY active Not Available Not Available No t Available oxycodone 5 mg capsule PLEASE SEE ATTACHED FOR DETAILED DIRECTIO NS active Not Available Not Available No t Available benztropi ne 1 mg tablet 03/23 completed Medicati on ID: [id number] Du ration Value: 20 Brand Name: benztrop ine Send Method: E-Prescr ibed Sub s Allowed: subs OK Speci al Instruct ion: TK 1 T PO BID FOR MUSCLE STIFFNES S TREMOR RESTLESS Medicat ionGener icName: benztrop ine Not Available Not Available Not Available nicotine 21 mg/24 hr daily transderm al patch APPLY 1 PATCH TO SKIN EVERY MORNING REMOVE AT BEDTIME. DO NOT SMOKE WHILE WEARING PATCH. active Not Available Not Available No t Available pyridoxin e (vitamin B6) 50 mg tablet TAKE 1 TABLET BY MOUTH EVERY DAY active Not Available Not Available No t Available folic acid 1 mg tablet TAKE 1 TABLET BY MOUTH EVERY DAY active Not Available Not Available No t Available alprazola m 2 mg tablet 03/23 completed Medicati on ID: [id number] D uration Value: 15 Brand Name: alprazol am Send Method: E-Prescr ibed Sub s Allowed: subs OK Medic ationGen ericName : alprazol am Not Available Not Available Not Available ibuprofen 600 mg tablet PLEASE SEE ATTACHED FOR DETAILED DIRECTIO NS active Not Available Not Available No t Available polyethyl nilton glycol 3350 17 gram/dose oral powder 03/23 completed Medicati on ID: [id number] D uration Value: 30 Brand Name: polyethy odilon glycol 3350 Sen d Method: E-Prescr ibed Sub s Allowed: subs OK Medic ationGen ericName : polyethy odilon glycol 3350 Not Available Not Available Not Available estradiol 0.01% (0.1 mg/gram) vaginal cream APPLY A DIME SIZED TO THE EXTERNAL VAGINAL TISSUE THREE TIMES A WEEK active Not Available Not Available No t Available albuterol sulfate HFA 90 mcg/actua tion aerosol inhaler TAKE 2 PUFFS BY MOUTH EVERY 6 HOURS NEEDED WHEEZING active Not Available Not Available No t Available ferrous sulfate 325 mg (65 mg iron) tablet,de layed release TAKE 1 TABLET BY MOUTH EVERY OTHER DAY active Not Available Not Available No t Available oxybutyni n chloride 5 mg tablet 01/25 completed Medicati on ID: [id number] Du ration Value: 30 Brand Name: oxybutyn in chloride Send Method: E-Prescr ibed Sub s Allowed: subs OK Speci al Instruct ion: TK 1 T PO QID Medi cationGe nericNam e: oxybutyn in chloride Not Available Not Available Not Available ondansetr on 4 mg disintegr ating tablet TAKE 1 TO 2 TABLETS BY MOUTH 3 TIMES A DAY. MAX DOSE 4 TABS DAILY active Not Available Not Available No t Available fluticaso ne propionat e 50 mcg/actua tion nasal spray,rupali pension SPRAY 1 PUFF INTO EACH NOSTRIL TWICE DAILY. SHAKE BEFORE USE active Not Available Not Available No t Available sertralin e 50 mg tablet TAKE 1 TABLET BY MOUTH EVERY DAY active Not Available Not Available No t Available amitripty line 100 mg tablet 03/23 completed Medicati on ID: [id number] B rand Name: amitript sergio Se nd Method: E-Prescr ibed Sub s Allowed: subs OK Medic ationGen ericName : amitript yline Not Available Not Available Not Available doxycycli ne hyclate 100 mg tablet TAKE 1 TABLET BY MOUTH TWICE A DAY FOR 7 DAYS 01/05 completed Not Available Not Available Not Available dicyclomi ne 10 mg capsule TAKE 1 CAPSULE BY MOUTH FOUR TIMES DAILY NEEDED FOR ABDOMINA L CRAMPS active Not Available Not Available No t Available loratadin e 10 mg tablet TAKE 1 TABLET BY MOUTH EVERY DAY active Not Available Not Available No t Available Murine Ear 6.5 % drops INSTILL 5 DROPS INTO BOTH EARS 3 TIMES DAILY FOR 7 DAYS active Not Available Not Available No t Available naproxen 500 mg tablet TAKE 1 TABLET BY MOUTH TWICE A DAY FOR 30 DAYS active Not Available Not Available No t Available Cartia XT 180 mg capsule,e xtended release 03/23 completed Medicati on ID: [id number] D uration Value: 90 Brand Name: Cartia XT Send Method: E-Prescr ibed Sub s Allowed: subs OK [facility] Cartia XT Not Available Not Available Not Available cholecalc iferol (vitamin D3) 25 mcg (1,000 unit) capsule 03/23 completed Medicati on ID: [id number] D uration Value: 30 Brand Name: cholecal ciferol (vitamin D3) Send Method: E-Prescr ibed Sub s Allowed: subs OK Speci al Instruct ion: TK 1 C PO D Medica tionGene ricName: cholecal ciferol (vitamin D3) Not Available Not Available Not Available azithromy debra 500 mg tablet TAKE 1 TABLET BY MOUTH EVERY DAY FOR 5 DAYS 01/05 completed Not Available Not Available Not Available aripipraz ole 10 mg tablet TAKE 1 TABLET BY MOUTH EVERY DAY IN THE MORNING active Not Available Not Available No t Available aripipraz ole 20 mg tablet active Medicati on ID: [id number] B rand Name: aripipra zole Sen d Method: E-Prescr ibed Sub s Allowed: subs OK Medic ationGen ericName : aripipra zole Not Available Not Available Not Available nicotine (polacril ex) 2 mg buccal lozenge 1 LOZENGE SUBLINGU ALLY EVERY 2 HOURS,X6 WEEK(S). DO NOT CHEW OR SWALLOW WHOLE active Not Available Not Available No t Available cyclobenz aprine 5 mg tablet TAKE 1 TABLET BY MOUTH 3 TIMES A DAY FOR 7 DAYS active Not Available Not Available No t Available nitrofura ntoin monohydra te/macroc rystals 100 mg capsule active Medicati on ID: [id number] B rand Name: nitrofur antoin monohyd/ m-cryst Send Method: E-Prescr ibed Sub s Allowed: subs OK Medic ationGen ericName : nitrofur antoin monohyd/ m-cryst Not Available Not Available Not Available duloxetin e 30 mg capsule,d elayed release active Medicati on ID: [id number] B rand Name: duloxeti ne Send Method: E-Prescr ibed Sub s Allowed: subs OK Medic ationGen ericName : duloxeti ne Not Available Not Available Not Available duloxetin e 60 mg capsule,d elayed release TAKE 1 CAPSULE BY MOUTH TWICE A DAY active Not Available Not Available No t Available sodium chloride 03/23 completed Medicati on ID: [id number] B rand Name: sodium chloride Send Method: E-Prescr ibed Sub s Allowed: subs OK [facility] : sodium chloride Not Available Not Available Not Available sodium chloride 1,000 mg soluble tablet TAKE 1 TABLET BY MOUTH THREE TIMES A DAY active Not Available Not Available No t Available oxycodone 10 mg tablet 08/11 completed Medicati on ID: [id number] Du ration Value: 28 Brand Name: oxycodon e Send Method: E-Prescr ibed Sub s Allowed: subs OK Speci al Instruct ion: TK 1 T PO TID Medi cationGe nericNam e: oxycodon e Not Available Not Available Not Available desvenlaf axine succinate ER 100 mg tablet,ex tended release 24 hr 03/23 completed Medicati on ID: [id number] B rand Name: desvenla faxine succinat e Send Method: E-Prescr ibed Sub s Allowed: subs OK Medic ationGen ericName : desvenla faxine succinat e Not Available Not Available Not Available cholecalc iferol (vitamin D3) 50 mcg (2,000 unit) capsule TAKE 1 CAPSULE BY MOUTH EVERY DAY active Not Available Not Available No t Available Fiber Therapy (methylce llulose-s ugar) 2 gram/19 gram oral powder DISSOLVE 2 GRAMS IN BEVERAGE AND DRINKM ONCE DAILY active Not Available Not Available No t Available Myrbetriq 25 mg tablet,ex tended release TAKE 1 TABLET BY MOUTH EVERY DAY active Not Available Not Available No t Available Incruse Ellipta 62.5 mcg/actua tion powder for inhalatio n 1 PUFFS INHALATI ON EVERY 24 HOURS,X2 4 HR,INSTR :APART. active Not Available Not Available No t Available magnesium 400 mg (as magnesium oxide) tablet TAKE 1 TABLET BY MOUTH EVERY DAY active Not Available Not Available No t Available There-M 9 mg iron-400 mcg tablet 03/23 completed Medicati on ID: [id number] B rand Name: Gisselle- Benedicto Send Method: E-Prescr ibed Sub s Allowed: subs OK Medic ationGen ericName : Therems- M Not Available Not Available Not Available Daily-Vit e (with folic acid) 400 mcg tablet TAKE 1 TABLET BY MOUTH EVERY DAY active Not Available Not Available No t Available Paxlovid 300 mg (150 mg x 2)-100 mg tablets in a dose pack TAKE 3 TABLETS BY MOUTH TWICE DAILY FOR 5 DAYS. DIRECTED ON PACKAGE active Not Available Not Available No t Available Vitals Date Recorded Body weight Body mass index (BMI) Body height Provider Name and Address Organization Details Last Updated DateTime 01/08/2025 31784.01 g 23 kg/m2 160.02 cm Corinna Howard [place] - [facility] 01/08/2025 13:23:38 Social History None recorded. Functional Status None recorded. Mental Status None recorded. Family History Nothing Reported. Medical History No medical history recorded. Gynecological HistoryNo gynecological history recorded. Obstetrics History GPAL:G 0 P 0 0 0 0 Past Encounters Encounter ID Performer Location Encounter Start Date Encounter Closed Date Diagnosis/Indication Diagnosis SNOMED-CT Code Diagnosis ICD10 Code Diagnosis IMO Codes Diagnosis Note [id number] [address] AVALOS [facility] [address] [place] [address] 01/08/2025 13:04:16 01/08/2025 14:52:42 Abnormal sensation 888599402 R44.8 [id number] Migraine 84531958 G43.80 9 6232448 Allergic rhinitis 973806 04 J30.89 [id number] Health Concerns Section Related Observation LastModified by Organization Detai ls LastModified Time None Recorded Concern Status LastModified by Organization Details LastModified Time None Recorded Payers Encounter Date Sequence Insurance Name Policy Number Policy Barba Covered Member ID Barba Member ID Guarantor Name 01/08/2025 1 [facility] - DOS ON OR AFTER 2022 - [employer] (MEDICARE REPLACEMENT/ADV ANTAGE - HMO) Rhona Gandara [id number] Rhona Gandara Notes Date Note Type Note Provider Name and Address Organization Details Recorded Time 01/08/2025 text/html ROS as noted in the HPI 70 year old female, with a history of chronic migraine, presents for evaluation of chronic sinusitis. Patient was recently seen at [facility] on 01/05/25 for head trauma following a mechanical fall in her bathroom. She had a CT of the head done there but cannot recall the results of the scan. Patient reports persistent forehead congestion. She takes Claritin and Flonase, in addition to using saline irrigation which she states helps. Never been tested for allergies. Patient was also went to urgent a week ago and was prescribed Fioricet for a migraine attack. Denies fever and purulent nasal discharge. RICKY MARX MD [address] [place] [address], [phone], [facility] 01/10/2025 20:37:19 OBGyn Episode No OBEpisode recorded.
--- OUTSIDE RECORDS SUMMARY | 2025-03-10 16:58 | XMS_ITS | Continuity of Care Document ---
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 I provided real-time medical direction for this encounter and was immediately available to provide additional phone-based assistance as needed. History as noted in EMR and by traveling clerk. I would add / emphasize: Patient seen for follow-up visit for evaluation of ulcerated area between 1st and 2nd toes concerning for possible soft tissue infection. She has VNA performing wound care and is presently on doxycycline. Afebrile AVSS and well-appearing per report. Blood glucose checked by medic and within normal limits. Patient noted to be somewhat sleepy however this is longstanding issue with the patient who has had falls at home resulting in hospitalization due to excessive somnolence. Given difficulties obtaining access to the property by traveling clerk 911 was activated and forced entry into patient's residence after which patient was noted to be alert oriented and able to provide informed refusal of transport which was advised by traveling clerk and by [facility]. Patient noted to be otherwise ambulatory without assistance without physical exam evidence of obvious decompensated infection on exam. Advised ongoing use of oral and topical antibiotics close outpatient follow-up, and red flag symptoms that should prompt a call to 911. pallfather Not available 03/07/2025 13:45:04 Plan of Treatment Reminders Order Date Submit Date Provider Last Modified By Organization Details Last Modified Time Details Appointments None recorde d. Lab glucose , fingers tick, blood 025 03/06/20 25 [facility], [address] 5 17:49:15 Referral None recorde d. Procedures None recorde d. Surgeries None recorde d. Imaging None recorde d. Medication Orders None recorde d. Patient TargetsNo targets recorded. Patient InstructionsNo instructions [...] Name and Address Organization Details Recorded Time 82935 Ceclor medicatio n Not available Not available Not available 04/28/202498190 5 RxNorm Not Available [facility] - production 15:29:00 60614 sulfameth oxazole medicatio n Not available Not available Not available 04/28/2024 70602 RxNorm Not Available [facility] - production 09:05:30 16061 Substance with sulfonami de structure and antibacte rial mechanism of action (substanc e) medicatio n Not available Not available Not available 02/24/2025 22856 8003 SNOMED Not Available [facility] - production 09:05:30 56839 succinylc holine Not available anaphylax is dyspnea Not available Not available high 02/24/20252012 21157 RxNorm Per patie nt, respi rator y depre ssion /SOB after extub ation after recei ving this med for sedat ion durin g a surge ry when she was 20 Not Available [employer] - prod 5 15:44:39 21050 cefaclor medicatio n hives other Not available Not available Not available 02/24/20252012 2176 RxNorm Not Available [employer] - prod 5 15:45:09 30536 succinylc holine chloride medicatio n dyspnea other Not available Not available high 02/24/20252023 3565 RxNorm Per patie nt, respi rator y depre ssion /SOB after extub ation after recei ving this med for sedat ion chaz arguello a surge ry when she was 20 Not Available [employer] - [employer] - prod 5 15:45:09 01853 sulfadiaz ine medicatio n Not available Not available Not available 03/01/2025 07110 RxNorm Not Available [employer] - prod 17:18:00 penicilli n V potassium medicatio n Not available Not available Not available 03/01/202531605 5 RxNorm Not Available [employer] - [employer] - prod 17:20:41 95171 Vaccine product containin g only Clostridi um tetani antigen (medicina l product) medicatio n Not available Not available Not available 03/10/2025 15914 2003 SNOMED [facility] Available [facility] 15:[facility]10 7025 Product containin g penicilli n (product) medicatio n Not available Not available Not available 02/11/2024 13909 8001 SNOMED Not Available [facility] 4 03:34:22 7026 Bactrim medicatio n Not available Not available Not available 02/11/2024 35406 9 RxNorm Not Available [facility] 5 09:05:30 Medications Name Sig [...] TIMES A DAY. NEXT DOSE IS AT 1030 PM AND LAST DOSE IS ON 11 [...] No t Available Vitals Date Recorded Body height Body weight Heart rate Oxygen saturation Respiratory rate Body temperature Systolic And Diastolic Provider Name and Address Organization Details Last Updated DateTime 5 147.32 cm 30557.0 8 g 96 /min 96 % 16 /min 96.5 [degF] 148/96 mm[Hg] Not Available [facility] - production 5 14:06:19 Social History None recorded. Functional Status None recorded. Mental Status None recorded. Family History Nothing Reported. Medical History No medical history recorded. Gynecological HistoryNo gynecological history recorded. Obstetrics History GPAL:G 0 P 0 0 0 0 Past Encounters Encounter ID Performer Location Encounter Start Date Encounter Closed Date Diagnosis/Indication Diagnosis SNOMED-CT Code Diagnosis ICD10 Code Diagnosis IMO Codes Diagnosis Note [id number] Mary Cosme MD [facility] [address] [address] 02/24/2025 11:21:17 02/24/2025 13:01:47 Common cold [id number] J00 [id number] Ilia Wilkins MD [address] [address] 03/01/2025 14:36:25 03/01/2025 17:54:10 Bilateral acute conjunctivitis 1533148141 H10.33 [id number] Brayan Bates MD [address] [address] 03/06/2025 12:44:15 03/08/2025 20:59:28 General examination of patient [id number] Z00.00 814199 Health Concerns Section Related Observation LastModified by Organization Detai ls LastModified Time None Recorded Concern Status LastModified by Organization Details LastModified Time None Recorded Payers Encounter Date Sequence Insurance Name Policy Number Policy Barba Covered Member ID Barba Member ID Guarantor Name 03/06/2025 1 [facility] - DOS ON OR AFTER 2022 - DUAL ELIGIBLE - [employer] AND ONE CARE (MEDICARE REPLACEMENT/ADV ANTAGE - HMO) Rhona Gandara [id number] Rhona Gandara Notes Date Note Type Note Provider Name and Address Organization Details Recorded Time 03/06/2025 text/html [facility] Nurse Triage Notes (Jody Moe): Reason For Request: Patient has a infection between her toe, and now a fever, and vomiting. Patient Reports: Fever and chills noted in setting of woundDenies: Leos Flash, circumferential leos Leos reported with black tissue to the area Open skin area after a fall with uncontrolled bleeding Abscess/infection with streaking noted, presence of fever or without History of cellulitis, isolated redness noted Rash Bites -bugs, spider Abscess Chief Complaints: Nausea / Vomiting, FeverPMH: COPD/Asthma, Gastroesophageal Reflux Disease (GERD), Hypothyroidism, Hypertension, Substance Use DisorderPMH Reviewed at 03/06/2025 - :59 (ET)Allergies Reviewed at 03/06/2025:59 (ET)Comments: 70 y.o female complains of Nausea / Vomiting, Fever Patient reports that she has an infection on her first foot, first and second toe. She stated there is a hole in the area. She has a VNA that comes and changes the dressing. She is on doxy for the infection. She feels it is more painful today than normal. She is unable to eat and drink.She denies any red streak. the area is red and sensitive to the touch. She reports feeling warm, with chills, but does not have a way to check. She has nausea and vomiting, and she threw up mucus. She has a fracture on C6 in a hard collar. She feels her muscles feel heavy. She does not have dizziness but head feels fuzzy, no confusionHas a h/o hyponatremia I provided information on the mobile health provider response time and advised the patient and/or caregiver to monitor reported signs and symptoms. I discussed the warning signs of when to seek emergency care. Vice President Of Nursing Organization Information for Volodymyr Danielle Legal Name: [facility] Address: [address] [place] [address], [place], [place] [address], Card Painter: [place] SANDOVAL No.: [id number] Vice President Of Nursing POC Test Results from Volodymyr Danielle Blood Glucose Measurement (14:06:25) Blood Glucose: 104mg/dL ...................... ...................... ...................... ...................... ...................... ...................... ......... Vice President Of Nursing Note From Volodymyr Danielle: 70-year-old female, complaining of nausea and episode of vomiting and fever this morning when she called. Patient confirmed to visit via phone and said to call her upon arrival so she could open the doors. Upon arrival no answer via phone times three, no answer by knocking at window in her living room multiple times and back door and side windows so called for a well-being check with the police. She had not been transported per 911. Arrival no answer from police fire, broken and found her sleeping in bed about 12 feet away from the window and near another window that was banged upon. Patient states she is part of hearing and did not sleep well last night due to C collar and is very concerned that she s not getting enough sleep. Patient denies fever now and took her doxycycline, Tylenol and ibuprofen this morning, but didn t feel like eating her toast. Unsure if doxycycline upset her stomach, but checked blood sugar of 104. Ambulance crew. Did refusal for patients. Patient answering all questions appropriately, but seems to be able to fall asleep fairly quickly. [place] is easily to verbal. Denies any narcotic use and states she does not have any in the home pupils equal and reactive to light not pinpoint. Patient Has been taking her doxycycline for five days and also taking erythromycin ointment for her eyes with relief of both, but states the toe is hurting slightly more than it was. Pictures taken and sent to Dr. Bates. Patient able to walk to bathroom on her own with no cane and did not fall asleep on toilet. Patient states her BUSINESS ASSISTANT was here this morning and her will be back at five and she absolutely does not want to go to the hospital. Patient going to take a nap and redress her wound herself on her foot. Patient again declined, offered [facility] Forced entry of doors was reported by fire department and police department. Patient states that she forgot to take her phone with her to the bed when she was waiting for my arrival. And she is part of hearing so did not hear the banging until we walked in on her. Patient agreed to follow up with her PCP. Exam by EMS myself revealed no pain no headache no nausea. Press sounds equal bilaterally with slight wheeze, patient is still active smoker. Patient able to walk without assist. Wound appears to be healing from last visit and no drainage. No redness noted. Patient thanked us for a visit ...................... ...................... ...................... ...................... ...................... ...................... ......... [facility] [place] Consulted: Brayan Bates ...................... ...................... ...................... ...................... ...................... ...................... ......... Disposition: Fulfilled ...................... ...................... ...................... ...................... ...................... ...................... ......... Vice President Of Nursing Note From Volodymyr Danielle:This has been updated by the traveling clerk, Volodymyr Danielle, at (03/06/2025 14:28:50 ET) 70-year-old female, complaining of nausea and episode of vomiting and fever this morning when she called. Patient confirmed to visit via phone and said to call her upon arrival so she could open the doors. Upon arrival no answer via phone times three, no answer by knocking at window in her living room multiple times and back door and side windows so called for a well-being check with the police. She had not been transported per 911. Arrival no answer from police fire, broke in and found her sleeping in bed about 12 feet away from the window and near another window that was banged upon. Patient states she is hard of hearing and did not sleep well last night due to C collar and is very concerned that she s not getting enough sleep. Patient denies fever now and took her doxycycline, Tylenol and ibuprofen this morning, but didn t feel like eating her toast. Unsure if doxycycline upset her stomach, but checked blood sugar of 104. Ambulance crew did refusal for patient. Patient answering all questions appropriately, but seems to be able to fall asleep fairly quickly. [place] easily to verbal. Denies any narcotic use and states she does not have any in the home pupils equal and reactive to light not pinpoint. Patient Has been taking her doxycycline for five days and also taking erythromycin ointment for her eyes with relief of both, but states the toe is hurting slightly more than it was. Pictures taken and sent to Dr. Bates. Patient able to walk to bathroom on her own with no cane and did not fall asleep on toilet. Patient states her BUSINESS ASSISTANT was here this morning and her will be back at five and she absolutely does not want to go to the hospital. Patient going to take a nap and redress her wound herself on her foot. Patient again declined, offered [facility]. Forced entry of doors was reported by fire department and police department. Patient states that she forgot to take her phone with her to the bed when she was waiting for my arrival. And she is part of hearing so did not hear the banging until we walked in on her. Patient agreed to follow up with her PCP. Exam by EMS myself revealed no pain no headache no nausea. Breath sounds equal bilaterally with slight wheeze, patient is still active smoker. Patient able to walk without assist. Wound appears to be healing from last visit and no drainage. No redness noted. Patient thanked us for a visit Brayan Bates MD [address] [facility],[address], [place], [address], [employer] [facility] [employer] 03/07/2025 13:45:13 OBGyn Episode No OBEpisode recorded.
--- OUTSIDE RECORDS SUMMARY | 2025-03-10 16:58 | XMS_ITS | Data Portability ---
Author Organization [facility] Address [address] [place] [address] Care Team Providers Care Action Finisher Name Role Phone HIM CCA OTHER [facility] Primary Care Provider Assessment Encounter Date Assessment Date Assessment LastModified by Organization Details LastModified Time 02/02/2025 02/02/2025 I provided real -time medical direction via phone for this encounter, and was available for additional phone based assistance as needed. I have reviewed and agree with the Assessment and Plan as documented by the [facility]. We discussed the diagnostic uncertainty of home visits and the risk associated with this. In this case we felt this to be an acceptable and reasonable amount of risk given the benefit of avoiding an ED visit. The patient given the opportunity to ask questions. Advised if develops severe headache/redness spreading around her eyes onto the face or forehead, acute visual loss AMS/ syncope/ hi fever to call 911- verbalized understanding of instruction [email or web address] Not available 02/02/2025 16:12:15 02/24/2025 02/24/2025 I provided real -time medical direction via phone for this encounter and was available for additional phone-based assistance as needed. I have reviewed and agree with the Assessment and Plan as documented by the [facility]ma [facility] Lpn. Patient given the opportunity to ask questions. Our service contacted for an assessment of: Viral URI symptoms As per above, patient with approximately several days of viral URI symptoms. Denies fever or chills. Denies chest pain, shortness of breath, dyspnea on exertion. Positive nasal congestion and dry cough. Positive sick contacts. Per load tallier on the scene, vital signs are stable and patient is afebrile. No wheezing heard on exam. COVID and Flu are both negative. No increased work of breathing and no distress. Impression: Common cold and viral URI Plan: Continue with [id number] medications to control symptoms. Red flags discussed as to when to seek a higher level care. Additionally patient was recommended to have an xray of foot for which we suggested urgent care. Allergies: Reviewed We discussed the diagnostic uncertainty of home visits and the risk associated with this. In this case, the patient and I felt this to be an acceptable and reasonable amount of risk given the benefit of avoiding an ED visit. We discussed the need to seek care urgently/emergentl y in the setting of any new or worsening serious symptoms, particularly fever chills [email or web address] Not available 02/24/2025 11:24:04 03/01/2025 03/01/2025 As noted, we wer e called to see this patient regarding concerns of conjunctivitis. Evaluation in the field was performed by my load tallier colleague, as noted above, I provided real-time [...] We discussed the need to seek care urgently/emergentl y in the setting of any new or worsening serious symptoms, particularly red streaking carlton going up the leg, fevers, loss of vision. [email or web address] Not available 03/01/2025 14:46:51 03/06/2025 03/06/2025 I have reviewed and agree with the assessment and plan as documented by the load tallier. I provided real-time medical direction for this encounter and was immediately available to provide additional phone-based assistance as needed. History as noted in EMR and by load tallier. I would add / emphasize: Patient seen [...] difficulties obtaining access to the property by load tallier 911 was activated and forced entry into patient's residence after which patient was noted to be alert oriented and able to provide informed refusal of transport which was advised by load tallier and by fire EMS. Patient noted to be otherwise ambulatory [...] Modified Time Details Appointments None recorded. Lab glucose, fingerstick , blood 2024 [facility], [address] [place] [address], [phone] 17:49:15 rapid SARS CoV 2 Ag, QL IA, respiratory specimen 2024 [facility], [address] [place] [address], [phone] 12:29:40 rapid flu (A+B) 2024 [facility], [address] [place] [address], [phone] 12:29:41 Referral None recorded. Procedures None recorded. Surgeries None recorded. Imaging None recorded. Medication Orders erythromyci n 5 mg/gram (0.5 %) eye ointment 2024 [id number], [address] [place], [address], 5 14:41:26 neomycin 3.5 mg/g-polymy cami B 10,000 unit/g-dexa meth 0.1 % eye oint 2024 025 [id number], [address] [place], [address], 5 16:07:02 Patient TargetsNo targets recorded. Patient InstructionsNo instructions [...] Name and Address Organization Details Recorded Time 35130 Ceclor medicatio n Not available Not available Not available 04/28/202452638 5 RxNorm Not Available [facility] - production 15:29:00 96129 sulfameth oxazole medicatio n Not available Not available Not available 04/28/2024 89745 RxNorm Not Available [facility] - production 09:05:30 65812 Substance with sulfonami de structure and antibacte rial mechanism of action (substanc e) medicatio n Not available Not available Not available 02/24/2025 98240 8003 SNOMED [facility] 09:05:30 83107 succinylc holine Not available anaphylax is dyspnea Not available Not available [facility] 02/24/20252012 85722 RxNorm Per patie nt, respi rator y depre ssion /SOB after extub ation after recei ving this med for sedat ion chaz g a surge ry when she was 20 Not Available [employer] - prod 15:44:39 20882 cefaclor medicatio n hives other Not available Not available Not available 02/24/20252012 2176 RxNorm Not Available [employer] [facility] - prod 11/12/202 5 15:45:09 32377 succinylc holine chloride medicatio n dyspnea other Not available Not available [facility] 02/24/20252023 3565 RxNorm Per patie nt, respi rator y depre ssion /SOB after extub ation after recei ving this med for sedat ion chaz g a surge ry when she was 20 Not Available [employer] - [employer] - prod 5 15:45:09 52905 sulfadiaz ine medicatio n Not available Not available Not available 03/01/2025 32780 RxNorm Not Available [facility] [employer] - prod 5 17:18:00 penicilli n V potassium medicatio n Not available Not available Not available 03/01/202557835 5 RxNorm Not Available [employer] [employer] [facility] - prod 5 17:20:41 70199 Vaccine product containin g only Clostridi um tetani antigen (medicina l product) medicatio n Not available Not available Not available 03/10/2025 10950 2003 SNOMED Not Available [facility] - production 5 15:50:10 7025 Product containin g penicilli n (product) medicatio n Not available Not available Not available 02/11/2024 91775 8001 SNOMED Not Available [facility] 4 03:34:22 7026 Bactrim medicatio n Not available Not available Not available 02/11/2024 50625 9 RxNorm Not Available [facility] [...] Available No t Available Vitals Date Recorded Heart rate Body temperature Respiratory rate Oxygen saturation Systolic And Diastolic Provider Name and Address Organization Details Last Updated DateTime 5 77 /min 97.9 [degF] 18 /min 96 % 115/77 mm[Hg] Not Available [employer] 5 10:01:09 Date Recorded Heart rate Oxygen saturation Respiratory rate Body height Body temperature Body weight Systolic And Diastolic Provider Name and Address Organization Details Last Updated DateTime 5 86 /min 97 % 14 /min 152.4 cm 98 [degF] 78985.8 g 154/84 mm[Hg] Not Available [employer] 5 16:01:26 Date Recorded Heart rate Body temperature Respiratory rate Oxygen saturation Systolic And Diastolic Provider Name and Address Organization Details Last Updated DateTime 5 78 /min 98.9 [degF] 18 /min 96 % 140/82 mm[Hg] Not Available [employer] 5 11:21:26 Date Recorded Respiratory rate Oxygen saturation Body temperature Body weight Heart rate Body height Systolic And Diastolic Provider Name and Address Organization Details Last Updated DateTime 5 18 /min 99 % 97.1 [degF] 06988.8 16 g 72 /min 152.4 cm 137/77 mm[Hg] Not Available [employer] 14:36:32 Date Recorded Body height Body weight Heart rate Oxygen saturation Respiratory rate Body temperature Systolic And Diastolic Provider Name and Address Organization Details Last Updated DateTime 5 147.32 cm 03116.0 8 g 96 /min 96 % 16 /min 96.5 [degF] 148/96 mm[Hg] Not Available [employer] 14:06:19 Social History None recorded. Functional Status None recorded. Mental Status None recorded. Family History Nothing Reported. Medical History No medical history recorded. Gynecological HistoryNo gynecological history recorded. Obstetrics History GPAL:G 0 P 0 0 0 0 Past Encounters Encounter ID Performer Location Encounter Start Date Encounter Closed Date Diagnosis/Indication Diagnosis SNOMED-CT Code Diagnosis ICD10 Code Diagnosis IMO Codes Diagnosis Note [id number] Mary Cosme MD [facility] [address] [place] [id number] 04/26/2022 17:35:03 05/01/2022 11:23:41 Acute conjunctivitis 64347502 H10.30 [id number] Samra Whitley MD [facility] [address] [place] [phone] 09/09/2022 17:58:41 09/10/2022 19:02:49 Nausea 615434480 R11.0 Evaluation in the field was performed by my load tallier colleague, as noted above, I provided real-time direction and supervisio n for this visit. 67yo F hx GERD on PPI p/w pre-dinner nausea x 3 days w/o abd pain, vomiting, diarrhea, chest pain/angin al equivalent s. DDx broad but no red flag sx to indicate urgent need for imaging/tx . Attempted to get LFTs however load tallier unable to obtain, not urgent given no jaundice or RUQ TTP. Plan to given zofran x1 now, trial maalox and contact PCP tomorrow for in person eval. We discussed the diagnostic uncertaint y of home visits and the risk associated with this. In this case, the patient and I felt this to be an acceptable and reasonable amount of risk given the benefit of avoiding an ED visit. We discussed the need to seek care urgently/e mergently in the setting of any new or worsening serious symptoms, shortness of breath, cough, chest pain, fever. [id number] Radha Lopez MD [facility] [address] [place] [phone] 10/30/2022 16:50:24 08/14/2024 12:51:56 Fall [id number] W19.XXXA 67 yo s/p fall at home last night with headstrike and subsequent headache that appears to be worsening despite NSAID use. No confusion, lethargy or focal neurologic deficits. Not on anticoagul ation (per patient recollecti on). Discussed at length with load tallier and patient, agreed she should be evaluated for unwitnesse d head trauma and worsening BRAVO (raising c/f subdural). Called ambulance. Discussed with load tallier and patient, who agreed with plan. Warning signs/symp toms reviewed. [id number] Mukesh Stubbs MD [facility] [address] [place] [phone] 04/28/2024 16:50:05 04/28/2024 22:27:41 Headache 95087743 R51.9 As noted, we were called to see this patient regarding concerns of headache. Evaluation in the field was performed by my load tallier colleague, as noted above, I provided real-time direction and supervisio n for this visit. The evaluation revealed an alert and oriented woman with no deficits per the load tallier. However, she reports new headache associated with neurologic al symptoms. Impression :headache, tremors, visual changes Plan:ED evaluation Dispositio n: ORWe discussed the situation and I recommende d referral to the emergency department . This was based on new onset headache with associated neurologic al symptoms. [id number] Michelle Mims MD [address] [phone] 06/01/2024 17:05:04 06/02/2024 08:46:02 Upper respiratory infection [id number] J06.9 [id number] Michelle Mims MD [place] [id number] 07/08/2024 15:48:42 07/08/2024 19:44:39 Diarrhea 32229455 R19.7 [id number] Ilia Wilkins MD [address] [phone] 07/30/2024 12:57:13 07/30/2024 14:45:28 Acute frontal sinusitis 87924247 J01.10 [id number] Michelle Mims MD [address] [address] 08/17/2024 17:23:15 08/17/2024 21:04:11 Fatigue 87828058 R53.83 [id number] Anxiety 45240582 F41.9 [id number] Michelle Mims MD [facility] [address] [phone] 10/29/2024 19:15:54 10/30/2024 16:24:07 Nausea and vomiting 01824045 R11.2 [id number] Walking disability 30263 8008 R26.2 [id number] Saira Camacho MD [address] [phone] 12/19/2024 10:01:05 12/21/2024 15:55:55 Blood pressure taking 84873579 Z01.30 [id number] As noted, we were called to see this patient regarding concerns of abnormal blood pressure. Evaluation in the field was performed by my load tallier colleague, as noted above, I provided real-time direction and supervisio n for this visit via telephone with the medic. The evaluation revealed 69 yo who calls for concerns about her blood pressure. She reports it has been low for several weeks.She was seen in the ER on 12/14 and documented BP then was 145/88. She was then seen by her PCP 12/17 and [facility] 12/18. She also had an EMS evaluation yesterday, 12/18, and declined transfer.S he has chronic nausea, managed well with her home ondansetro n. She denies chest pain, dyspnea, dizziness. She is requesting a script for fioriset. Per medic she appears well on exam. Her BP is 115/77. Impression :Normal blood pressure Plan:Reass ured regarding her normal blood pressure. She is happy with this number.Dec lined to fill fioriset given it is a barbituate and not acutely needed for symptoms control (in which case a different pharmacoth erapy would have been discussed) . Dispositio n: We discussed the diagnostic uncertaint y of home visits and the risk associated with this. In this case, the patient and I felt this to be an acceptable and reasonable amount of risk given the benefit of avoiding an ED visit. We discussed the need to seek care urgently/e mergently in the setting of any new or worsening serious symptoms, particular ly changes to consciousn ess, chest pain, dyspnea. [id number] Ondina Velazquez MD [facility] ED Medical [address] [phone] 02/02/2025 16:01:19 02/03/2025 12:13:10 Bacterial conjunctivitis 325838991 H10.9 [id number] w/ blephariti sAdvised to throw out any [...] he verbalized understand ing to the medic [id number] Mary Cosme MD [facility] ED Medical [address] [address] 02/24/2025 11:21:17 02/24/2025 13:01:47 Common cold 21765225 J00 72388 [id number] Ilia Wilkins MD [address] [address] 03/01/2025 14:36:25 03/01/2025 17:54:10 Bilateral acute conjunctivitis 5004756063 H10.33 [id number] Brayan Bates MD [facility] [address] [phone] 03/06/2025 12:44:15 03/08/2025 20:59:28 General examination of patient 092778099 Z00.00 [id number] Health Concerns Section Related Observation LastModified by Organization Detai ls LastModified Time None Recorded Concern Status LastModified by Organization Details LastModified Time None Recorded Advance Directives Directive None Recorded Payers Insurance Date Sequence Insurance Name Policy Number Policy Barba Covered Member ID Barba Member ID Guarantor Name 08/21/2023 1 [facility] - DOS PRIOR TO 2022 - DUAL ELIGIBLE (MEDICARE REPLACEMENT/ADV ANTAGE - HMO) Rhona Gandara [id number] Rhona Gandara 03/10/2025 1 [facility] - DOS ON OR AFTER 2022 - DUAL ELIGIBLE - CORRECTION OPTIONS AND ONE CARE (MEDICARE REPLACEMENT/ADV ANTAGE - HMO) Rhona Gandara [id number] Rhona Gandara Notes Date Note Type Note Provider Name and Address Organization Details Recorded Time 12/19/2024 text/html [facility] Nurse Triage Notes (Katie Durand): Reason For Request: low BP Patient Reports: Palpitations, feeling dizzy Denies: History of Heart Attack, in the setting of active chest pain Active Chest pain, radiates to neck jaw and or arm Diaphoretic/Sweating Describes as c rushing Sudden onset of nausea/Vomiting and shortness of breath. Shortness of Breath Unable to speak in full sentences without distress Chest pain, increased fatigue CHF history, increased swelling and edema Weakness/tachycardia Chief Complaints: Low Blood Pressure PMH: COPD/Asthma, Gastroesophageal Reflux Disease (GERD), Hypothyroidism, Hypertension PMH Reviewed at 12/18/2024 - :56 Allergies Reviewed at 12/18/2024 - :56 Comments: 69 y.o female complains of Low Blood Pressure Patient self-reporting symptoms Saw MD today for her KAYKAY at doctor's office Has had nausea - usually gets with migraines but no migraine today No vomiting today - was vomiting yesterday 1g Na tabs TID - so BPs have been historically high Takes diltiazem daily Slightly dizzy, walks with walker at baseline and feels safe doing so Denies chest pain, palpitations, new shortness of breath Denies recent falls, takes ASA 81mg Unable to fulfill visit tonight - patient feels safe and comfortable waiting for visit in AM Reviewed red flags I provided information on the mobile health provider response time and advised the patient and/or caregiver to monitor reported signs and symptoms. I discussed the warning signs of when to seek emergency care. ...................... ...................... ...................... ...................... ...................... ...................... ......... C[facility]pn Note From Con Ley: Encountered patient conscious, alert and ambulatory. Patient reports she is requesting to have her blood pressure assessed and is also looking for a prescription for Fioricet from [facility]. Patient reports she went to the emergency room for her low blood pressure on 12/14/24 and was discharged the same evening. Patient additionally reports she was seen by her primary care doctor on 12/17/24 then followed up with [facility] on 12/18/24 for chronic migraines and nausea. Patient reports she is feeling nauseous this morning, but has not taken her prescribed Zofran in anticipation of today s appointment. Patient denies chest pain, shortness of breath and acute changes in vision. Patient additionally states that she contacted 911 on 12/18/24, was evaluated by EMS and signed a refusal at the time. Skin is warm, dry and of appropriate color for ethnicity. Head and neck free of trauma and edema.-JVD. Breath sounds present, clear and equal bilaterally. Abdomen is soft, non-tender and non-distended. Extremities are free of trauma and edema. [facility] Contacted: encouraged patient to continue to monitor blood pressure and to take the Zofran as designated by the prescribing physician. Patient was notified that Fioricet was not a medication that was allowed under the scope of the [facility] program and was encouraged to follow-up with the physician that recommended it, in order to obtain a prescription. Patient was urged to monitor herself for worsening symptoms, the presence of chest pain, shortness of breath, nausea uncontrolled by prescribed medications and changes in vision; encouraged to seek further medical attention including 911 should said symptoms develop. Patient verbalizes understanding of the plan and states she is comfortable remaining home today. ...................... ...................... ...................... ...................... ...................... ...................... ......... [facility] Consulted: Saira Camacho ...................... ...................... ...................... ...................... ...................... ...................... ......... Disposition: Fulfilled Saira Camacho MD [address] [facility],[address], [place], [address], [employer] 12/19/2024 10:48:21 02/02/2025 text/html ROS as noted in the HPI [facility] Nurse Triage Notes (Katie Durand): Reason For Request: Patient has infection in both eyes. Patient Reports: ConjunctivitisDenies: Sudden onset of dental pain, unable to manage own secretions Nosebleed lasting longer than one hour; unable to stop bleeding Throat swelling/difficult swallowing Dental pain and fever, able to maintain secretions Sinus infection External Ear concerns Chief Complaints: Eye ComplaintPMH: COPD/Asthma, Gastroesophageal Reflux Disease (GERD), Hypothyroidism, Hypertension, OtherPMH Reviewed at 02/02/2025 14:25Allergies Reviewed at 02/02/2025:25Pain Assessment: Level 5 out of 10Comments: Other PMH: hyponatremia 70 y.o female complains of Eye Complaint Self-referring. Bileratal eye redness, itchiness, pain and discharge. Started with R eye on Saturday and then progressed to both eyes. Green grainy discharge. Denies vision changes, headache, sore throat, congestion. Denies fever/chills. No PRNs or eye drops utilized. Takes ULQ91me daily. Denies kidney issues. I provided information on the mobile health provider response time and advised the patient and/or caregiver to monitor reported signs and symptoms. I discussed the warning signs of when to seek emergency care. ...................... ...................... ...................... ...................... ...................... ...................... ......... [facility] Note From Bacilio Gonzalez: Patient alert and oriented complains of bilateral eye itch and burning sensation times five days. Patient also reports thick discharge from both eyes. Patient denies visual changes, darkness fever, chills, nasal, congestion, increased cough, difficulty pain, weakness, dizziness or any other pain or complaint. Patient reports history of same with good relief, using anabiotic ointment. Patient pink warm dry eyes as pictured in documents, lung sounds cleared negative increased work of breathing positive full sentences abdomen soft, nontender extremities unremarkable with no edema noted good skin TURGOR. [facility] will prescribe medication to patient s local pharmacy. Red flags patient education discussed. Supportive care discussed, including warm compresses, handwashing and others. Patient demonstrates understanding of care and plan. ...................... ...................... ...................... ...................... ...................... ...................... ......... [facility] Consulted: Ondina Velazquez ...................... ...................... ...................... ...................... ...................... ...................... ......... Disposition: Fulfilled SEGMD: As above. Patient denies any allergic rhinitis, rash, difficulty swallowing /sore throat, headache, nausea vomiting or diarrhea. She denies use of any new cosmetic products/eye make-up. Ondina Velazquez MD [address] [facility],[address], [place], [address], [place] [employer] 02/03/2025 01:17:35 02/24/2025 text/html [facility] Nurse Triage Notes (NissaAntoinette schroeder): Reason For Request: Member thinks she has a bug or flu, was in the er also for this. Denies: Increased work of breathing/labored with or without fever Unable to speak in full sentences without distress Discoloration of skin -cyanosis Needs to sleep sitting up, can t catch breath Shortness of breath in setting of confusion Chief Complaints: Common Cold, Wound Care PMH: COPD/Asthma, Gastroesophageal Reflux Disease (GERD), Hypothyroidism, Hypertension, Substance Use Disorder PMH Reviewed at 02/24/2025: Allergies Reviewed at 02/24/2025:10 Comments: 70 y.o female complains of Common Cold, Wound Care Patient calling in to place a referral Patient hospitalized for etoh detox 02/19-02/23, and believes she now has a bacterial/viral infection Patient reports a non-productive cough, chest tightness, feeling hot/cold and was unable to sleep last night She denies shortness of breath, no chest pain +headache, no dizziness +bodyaches, no edema She does not wear supplemental 02, has a rescue inhaler and takees [employer] She has taken Tylenol Denies kidney disease, was hyponatremic in the hospital, not on any anticoagulation She also reports an ongoing wound on her right foot between her big toe and second toe, she would like evaluated I provided information on the mobile health provider response time and advised the patient and/or caregiver to monitor reported signs and symptoms. I discussed the warning signs of when to seek emergency care. Cma [facility] Lpn Organization Information for Yang Nowak Business Legal Name: [employer]. Address: [address] [place] [address], Roll Grinder: Garrett Nevarez MD CLIA No.: [id number] Cma Or Lpn POC Test Results from Eilu, Yang - ALS Rapid influenza antigen (11:02:37) Flu: - Rapid COVID antigen (11:02:38) COVID: - ...................... ...................... ...................... ...................... ...................... ...................... ......... Cma Or Lpn Note From Yang Nowak: Dispatched to the call address for the elderly female not feeling well. Pt states she is on day 2 now of body aches, mild cough, headaches and lethargy. She has been taking OTC Tylenol and Ibuprofen with good effect. She also as a wound on her foot between her toes that started as a fungal infection. Pt was in the ED (unrelated-released just yesterday) and they looked at it and told her she needed an X-ray to make sure there was not a bone infection. Pt denies fevers, chest pain, difficulty breathing, n/v/d, shortness of breath or other complaints at this time. Pt has been able to maintain baseline PO intake. Pt was found opening door, CAOx4, airway open and patent, breathing non labored, able to speak in full sentences, -JVD, -HEENT, skin PWD with good turgor, mucous membranes pink and moist, abd soft non tender/distended, lungs CTA, pupils PERRL, +CMSx4, -edema/swelling, afebrile. Rapid COVID/FLU tests (-). URI. Pt was assessed. Rapid tests preformed, pictures of wound taken and results uploaded to Pts portal. [facility] consulted. Pt advised to call her PCP for out Pt X-ray or go to an urgent care for one. Red flags discussed. ALL times are approx. [facility] Lab Orders: rapid SARS CoV 2 Ag, QL IA, respiratory specimen: Performed rapid flu (A+B): Performed ...................... ...................... ...................... ...................... ...................... ...................... ......... [facility] Consulted: Mary Cosme ...................... ...................... ...................... ...................... ...................... ...................... ......... Disposition: Fulfilled Mary Cosme MD [address] [place] [address],[address], [place], [address], [employer] 02/24/2025 12:15:03 03/01/2025 text/html ROS as noted in the [facility] CRC Nurse Triage Notes (Jody Moe): Reason [...] Hypertension, Substance Use Disorder PMH Reviewed at 03/01/2025 - 09: Allergies Reviewed at 03/01/2025:22 Comments: 70 y.o female complains of Eye [...] it up. I provided information on the mobile health provider response time and advised the patient and/or caregiver to monitor reported signs and symptoms. I discussed the warning signs of when to seek emergency care. ...................... ...................... ...................... ...................... ...................... ...................... ......... Cma Or Lpn Note From Volodymyr Danielle: 70 year-old female [...] ...................... ...................... ...................... ...................... ...................... ...................... ......... [facility] Consulted: Ilia Wilkins ...................... ...................... ...................... ...................... ...................... ...................... ......... Disposition: Fulfilled ...................... ...................... ...................... ...................... ...................... ...................... ......... Cma Or Lpn Note From Volodymyr Danielle:This has been updated by the load tallier, Volodymyr Danielle, at (03/01/2025 15:17:12) 70 year-old [...] at it again. Ilia Wilkins MD [address] [facility],[address], [place], [address], [employer] 03/01/2025 15:22:44 03/06/2025 text/html CRC Nurse Triage Notes (Jody [...] Substance Use DisorderPMH Reviewed at 03/06/2025 - 11:59 (ET)Allergies Reviewed at 03/06/2025 - 11:59 (ET)Comments: 70 y.o female complains of Nausea [...] signs of when to seek emergency care. Cma Or Lpn Organization Information for Volodymyr Danielle Legal Name: [facility] Address: [address] [place] [address], [place] [address], Roll Grinder: [place] SANDOVAL No.: [id number] Cma Or Lpn POC Test Results from Volodymyr Danielle Blood Glucose Measurement (14:06:25) Blood Glucose: 104mg/dL ...................... ...................... ...................... ...................... ...................... ...................... ......... Cma Or Lpn Note From Volodymyr Danielle: 70-year-old female, complaining [...] be able to fall asleep fairly quickly. [place] is easily to verbal. Denies any narcotic [...] fall asleep on toilet. Patient states her [employer]ED [employer]ARDS BEVELER was here this morning and her will be back at five and she absolutely does not want to go to the hospital. Patient going to take a nap and redress her wound herself on her foot. Patient again declined, offered to go get checked out at the [facility] room. Forced entry of doors was reported [...] ...................... ...................... ...................... ...................... ...................... ...................... ......... [facility] Consulted: Brayan Bates ...................... ...................... ...................... ...................... ...................... ...................... ......... Disposition: Fulfilled ...................... ...................... ...................... ...................... ...................... ...................... ......... Cma Or Lpn Note From Volodymyr Danielle:This has been updated by the load tallier, Volodymyr Danielle, at (03/06/2025 14:28:50 ET) 70-year-old [...] fall asleep on toilet. Patient states her [employer] B[employer]ER was here this morning and her will be back at five and she absolutely does not want to go to the hospital. Patient going to take a nap and redress her wound herself on her foot. Patient again declined, offered to go get checked out at the [facility] room. Forced entry of doors was reported [...] for a visit Brayan Bates MD [address] [facility],[address], [place], [address], [employer] 03/07/2025 13:45:13 OBGyn Episode No OBEpisode recorded.
--- OUTSIDE RECORDS SUMMARY | 2025-03-10 16:58 | XMS_ITS | Continuity of Care Document ---
Author Organization [place] [place] [facility] Address [address] [place] [address] Care Team Providers Care Club Licensee Name Role Phone HIM [facility] OTHER [facility] Primary Care Provider Assessment Encounter Date Assessment Date Assessment LastModified by Organization Details LastModified Time 02/02/2025 02/02/2025 I provided real -time medical direction via phone for this encounter, and was available for additional phone based assistance as needed. I have reviewed and agree with the Assessment and Plan as documented by the Bessemer Converter Operator. We discussed the diagnostic uncertainty of home [...] to call 911- verbalized understanding of instruction [email or web address] Not available 02/02/2025 16:12:15 Plan of Treatment Reminders Order Date Submit Date Provider Last Modified By Organization Details Last Modified Time Details Appointments None recorded. Lab None recorded. Referral None recorded. Procedures None recorded. Surgeries None recorded. Imaging None recorded. Medication Orders neomycin 3.5 mg/g-polym yxin B 10,000 unit/g-dex ameth 0.1 % eye oint 2024 025 [id number], [address] [place], [address], 16:07:02 Patient TargetsNo targets recorded. Patient InstructionsNo instructions recorded. Reason for Referral None Reported. Medical Equipment None Reported. Allergies Allergen ID Allergen Name Allergen Category Reaction Reaction Severity Criticality Documentation Date Start Date Code Code System Note Provider Name and Address Organization Details Recorded Time [address] [facility] Not [facility] Not available Not available 04/28/202406274 5 RxNorm Not Available [facility] - production 5 15:29:00 44652 sulfameth oxazole medicatio n Not available Not available Not available 04/28/2024 68207 RxNorm Not Available [facility] - production 5 09:05:30 68521 Substance with sulfonami de structure and antibacte rial mechanism of action (substanc e) medicatio n Not available Not available Not available 02/24/2025 80784 8003 SNOMED Not Available [facility] - production 5 09:05:30 35819 succinylc holine Not available anaphylax is dyspnea Not available Not available high 02/24/20252012 82928 RxNorm Per patie nt, respi rator y depre ssion /SOB after extub ation after recei ving this med for sedat ion durin g a surge ry when she was 20 Not Available [employer] - External [employer] - prod 5 15:44:39 80475 cefaclor medicatio n hives other Not available Not available Not available 02/24/20252012 2176 RxNorm Not Available [employer] - External Data [employer] - prod 5 15:45:09 00262 succinylc holine chloride medicatio n dyspnea other Not available Not available high 02/24/20252023 3565 RxNorm Per patie nt, respi rator y depre ssion /SOB after extub ation after recei ving this med for sedat ion durin g a surge ry when she was 20 Not Available [employer] - External Data [employer] - prod 5 15:45:09 99423 sulfadiaz ine medicatio n Not available Not available Not available 03/01/2025 78532 RxNorm Not Available [employer] - External Data [employer] - prod 5 17:18:00 62887 penicilli n V potassium medicatio n Not available Not available Not available 03/01/202582689 5 RxNorm Not Available [facility] [employer] - prod 5 17:20:41 Vaccine product containin g only Clostridi um tetani antigen (medicina l product) medicatio n Not available Not available Not available 03/10/2025 29106 2002 SNOMED Not Available [facility] 5 15:50:10 7024 Product containin g penicilli n (product) medicatio n Not available Not available Not available 02/11/2024 20662 8001 SNOMED Not Available [facility] 4 03:34:22 7026 Bactrim medicatio n Not available Not available Not available 02/11/2024 41284 9 RxNorm Not Available [facility] 5 09:05:30 Medications Name Sig [...] t Available Vitals Date Recorded Heart rate Oxygen saturation Respiratory rate Body height Body temperature Body weight Systolic And Diastolic Provider Name and Address Organization Details Last Updated DateTime 5 86 /min 97 % 14 /min 152.4 cm 98 [degF] 57893.8 g 154/84 mm[Hg] Not Available [employer] - production 5 16:01:26 Social History None recorded. Functional Status None recorded. Mental Status None recorded. Family History Nothing Reported. Medical History No medical history recorded. Gynecological HistoryNo gynecological history recorded. Obstetrics History GPAL:G 0 P 0 0 0 0 Past Encounters Encounter ID Performer Location Encounter Start Date Encounter Closed Date Diagnosis/Indication Diagnosis SNOMED-CT Code Diagnosis ICD10 Code Diagnosis IMO Codes Diagnosis Note [id number] Ondina Velazquez MD [facility] ED Medical [facility] [address] [place] [address] 02/02/2025 16:01:19 02/03/2025 12:13:10 Bacterial conjunctivitis 326781715 H10.9 18328 w/ blephariti sAdvised to throw out any [...] he verbalized understand ing to the medic Health Concerns Section Related Observation LastModified by Organization Detai ls LastModified Time None Recorded Concern Status LastModified by Organization Details LastModified Time None Recorded Payers Encounter Date Sequence Insurance Name Policy Number Policy Barba Covered Member ID Barba Member ID Guarantor Name 02/02/2025 1 [facility] - DOS ON OR AFTER 2022 - DUAL ELIGIBLE - LONGTERM OPTIONS AND ONE CARE (MEDICARE REPLACEMENT/ADV ANTAGE - HMO) Rhona Gandara [id number] Rhona Gandara Notes Date Note Type Note Provider Name and Address Organization Details Recorded Time 02/02/2025 text/html ROS as noted in the H[facility] CRC Nurse Triage Notes (Katei Durand): Reason For Request: Patient has infection [...] (GERD), Hypothyroidism, Hypertension, OtherPMH Reviewed at 02/02/2025 - :Allergies Reviewed at 02/02/2025 - :Pain Assessment: Level 5 out of 10Comments: Other PMH: hyponatremia 70 y.o female complains of Eye Complaint Self-referring. Bileratal eye redness, itchiness, pain and discharge. Started with R eye on Saturday and then progressed to both eyes. Green grainy discharge. Denies vision changes, headache, sore throat, congestion. Denies fever/chills. No PRNs or eye drops utilized. Takes UII32ri daily. Denies kidney issues. I provided information on the mobile health provider response time and advised the patient and/or caregiver to monitor reported signs and symptoms. I discussed the warning signs of when to seek emergency care. ...................... ...................... ...................... ...................... ...................... ...................... ......... [employer] Converter Operator Note From Bacilio Gonzalez: Patient alert and [...] with no edema noted good skin [place]. [facility] will prescribe medication to patient s local pharmacy. Red flags patient education discussed. Supportive care discussed, including warm compresses, handwashing and others. Patient demonstrates understanding of care and plan. ...................... ...................... ...................... ...................... ...................... ...................... ......... [facility] Consulted: Ondina Velazquez ...................... ...................... ...................... ...................... ...................... ...................... ......... Disposition: Fulfilled SEGMD: As above. Patient denies any allergic rhinitis, rash, difficulty swallowing /sore throat, headache, nausea vomiting or diarrhea. She denies use of any new cosmetic products/eye make-up. Ondina Velazquez MD [address] [place] [address],[address], [place], [address], [employer] 02/03/2025 01:17:35 OBGyn Episode No OBEpisode recorded.
--- OUTSIDE RECORDS SUMMARY | 2025-03-10 16:58 | XMS_ITS | Continuity of Care Document ---
Author Organization [employer] [facility], [place] [employer] Medical [facility] Address [address] [place] [address] Care Team Providers Care Adolescent Counselor Name Role Phone HIM [facility] OTHER [facility] Primary Care Provider Assessment No assessment recorded. Plan of Treatment Reminders Order Date Submit [...] Name and Address Organization Details Recorded Time 28487 Ceclor medicatio n Not available Not available Not available 04/28/2024 29560 5 RxNorm Not Available [facility] - production 15:29:00 74763 sulfameth oxazole medicatio n Not available Not available Not available 04/28/2024 08004 RxNorm Not Available [facility] - production 5 09:05:30 34182 Substance with sulfonami de structure and antibacte rial mechanism of action (substanc e) medicatio n Not available Not available Not available 02/24/2025 11271 8003 SNOMED Not Available [facility] - production 5 09:05:30 78270 succinylc holine Not available anaphylax is dyspnea Not available Not available high 02/24/20252012 30508 RxNorm Per patie nt, respi rator y depre ssion /SOB after extub ation after recei ving this med for sedat ion anisain g a surge ry when she was 20 Not Available [employer] - External Data Service - prod 5 15:44:39 94198 cefaclor medicatio n hives other Not available Not available Not available 02/24/20252012 2176 RxNorm Not Available [employer] - External Data Service - prod 5 15:45:09 06851 succinylc holine chloride medicatio n dyspnea other Not available Not available [facility] 02/24/20252023 3565 RxNorm Per patie nt, respi rator y depre ssion /SOB after extub ation after recei ving this med for sedat ion durin g a surge ry when she was 20 Not Available [employer] - External Data Service - prod 5 15:45:09 44731 sulfadiaz ine medicatio n Not available Not available Not available 03/01/2025 15738 RxNorm Not Available [employer] - External Data Service - prod 5 17:18:00 58238 penicilli n V potassium medicatio n Not available Not available Not available 03/01/202527826 5 RxNorm Not Available [employer] - External Data Service - prod 5 17:20:41 02927 Vaccine product containin g only Clostridi um tetani antigen (medicina l product) medicatio n Not available Not available Not available 03/10/2025 17174 2003 SNOMED Not Available [facility] 5 15:50:10 7025 Product containin g penicilli n (product) medicatio n Not available Not available Not available 02/11/2024 58400 8001 SNOMED Not Available [facility] 4 03:34:22 7026 Bactrim medicatio n Not available Not available Not available 02/11/2024 67336 9 RxNorm Not Available [facility] 5 09:05:30 Medications Name Sig [...] /min 96 % 115/77 mm[Hg] Not Available [facility] - production 5 10:01:09 Social History None recorded. Functional Status None recorded. Mental Status None recorded. Family History Nothing Reported. Medical History No medical history recorded. Gynecological HistoryNo gynecological history recorded. Obstetrics History GPAL:G 0 P 0 0 0 0 Past Encounters Encounter ID Performer Location Encounter Start Date Encounter Closed Date Diagnosis/Indication Diagnosis SNOMED-CT Code Diagnosis ICD10 Code Diagnosis IMO Codes Diagnosis Note [id number] Saira Camacho MD [facility] ED Medical [address] [address] 12/19/2024 10:01:05 12/21/2024 15:55:55 Blood pressure taking 95388682 Z01.30 136136 As noted, we were called to see this patient regarding concerns of abnormal blood pressure. Evaluation in the field was performed by my supply person colleague, as noted above, I provided real-time [...] changes to consciousn ess, chest pain, dyspnea. Health Concerns Section Related Observation LastModified by Organization Detai ls LastModified Time None Recorded Concern Status LastModified by Organization Details LastModified Time None Recorded Payers Encounter Date Sequence Insurance Name Policy Number Policy Barba Covered Member ID Barba Member ID Guarantor Name 12/19/2024 1 [facility] - DOS ON OR AFTER 2022 - DUAL ELIGIBLE - ASSISTED OPTIONS AND ONE CARE (MEDICARE REPLACEMENT/ADV ANTAGE - HMO) Rhona Gandara [id number] Rhona Gandara Notes Date Note Type Note [...] Hypothyroidism, Hypertension PMH Reviewed at 12/18/2024 - 20:56 Allergies Reviewed at 12/18/2024 - 20:56 Comments: 69 y.o female complains of Low Blood Pressure Patient self-reporting symptoms Saw MD today for her KAYKAY /60 at doctor's office Has had nausea - [...] ...................... ...................... ...................... ...................... ...................... ...................... ......... Pharmacy Buyer Note From oCn Ley: Encountered patient conscious, alert and ambulatory. Patient reports she is requesting to have her blood pressure assessed and is also looking for a prescription for Fioricet from [facility]. Patient reports she went to the emergency [...] Extremities are free of trauma and edema. [facility] Contacted: encouraged patient to continue to monitor [...] ...................... ...................... ...................... ...................... ...................... ...................... ......... [facility] Consulted: Saiar Camacho ...................... ...................... ...................... ...................... ...................... ...................... ......... Disposition: Fulfilled Saira Camacho MD [address] [place] [address],[address], [place], [address], [employer] 12/19/2024 10:48:21 OBGyn Episode No OBEpisode recorded.
--- OUTSIDE RECORDS SUMMARY | 2025-03-10 16:58 | XMS_ITS | Continuity of Care Document ---
Author Organization [employer] Address [address] [place] [address] Care Team Providers Care Guest Service Team Leader Name Role Phone HIM CCA OTHER [facility] Primary Care Provider Assessment Encounter Date Assessment Date Assessment LastModified by Organization Details LastModified Time 02/24/2025 02/24/2025 I provided real -time medical direction via phone for this encounter and was available for additional phone-based assistance as needed. I have reviewed and agree with the Assessment and Plan as documented by the Pin Ball Machine Mechanic. Patient given the opportunity to ask questions. Our service contacted for an assessment of: Viral URI symptoms As per above, patient with approximately several days of viral URI symptoms. Denies fever or chills. Denies chest pain, shortness of breath, dyspnea on exertion. Positive nasal congestion and dry cough. Positive sick contacts. Per filleter on the scene, vital signs are stable and patient is afebrile. No wheezing heard on exam. COVID and Flu are both negative. No increased work of breathing and no distress. Impression: Common cold and viral URI Plan: Continue with [id number] medications to control symptoms. Red flags discussed [...] We discussed the need to seek care urgently/emergen tly in the setting of any new or worsening serious symptoms, particularly fever chills [email or web address] Not available 02/24/2025 11:24:04 Plan of Treatment Reminders Order Date Submit Date Provider Last Modified By Organization Details Last Modified Time Details Appointments None recorded. Lab rapid SARS CoV 2 Ag, QL IA, respiratory specimen 2024 025 [facility], [address] [place] [address], [id number] 5 12:29:40 rapid flu (A+B) 2024 025 [facility], [address] [place] [address], [id number] 5 12:29:41 Referral None recorded. Procedures None recorded. [...] Name and Address Organization Details Recorded Time 97616 Ceclor medicatio n Not available Not available Not available 04/28/202414614 5 RxNorm Not Available [facility] - production 15:29:00 40673 sulfameth oxazole medicatio n Not available Not available Not available 04/28/2024 73278 RxNorm Not Available [email or web address]Now - production 09:05:30 07783 Substance with sulfonami de structure and antibacte rial mechanism of action (substanc e) medicatio n Not available Not available Not available 02/24/2025 09360 8003 SNOMED Not Available [facility] [[email or web address]Now - production 09:05:30 10701 succinylc holine Not available anaphylax is dyspnea Not available Not available high 02/24/20252012 09850 RxNorm Per patie nt, respi rator y depre ssion /SOB after extub ation after recei ving this med for sedat ion anisain g a surge ry when she was 20 Not Available [employer] Data [employer] - prod 15:44:39 93090 cefaclor medicatio n hives other Not available Not available Not available 02/24/20252012 2176 RxNorm Not Available [employer] - External Data Service - prod 5 15:45:09 98974 succinylc holine chloride medicatio n dyspnea other Not available Not available [facility] 02/24/20252023 3565 RxNorm Per patie nt, respi rator y depre ssion /SOB after extub ation after recei ving this med for sedat ion chaz g a surge ry when she was 20 Not Available [employer] - External Data Service - prod 5 15:45:09 46816 sulfadiaz ine medicatio n Not available Not available Not available 03/01/2025 82761 RxNorm Not Available [employer] - External Data Service - prod 5 17:18:00 19860 penicilli n V potassium medicatio n Not available Not available Not available 03/01/202524600 5 RxNorm Not Available [employer] External Data Service - prod 5 17:20:41 60328 Vaccine product containin g only Clostridi um tetani antigen (medicina l product) medicatio n Not available Not available Not available 03/10/2025 09942 2003 SNOMED Not Available [facility] - production 5 15:50:10 7025 Product containin g penicilli n (product) medicatio n Not available Not available Not available 02/11/2024 60786 8001 SNOMED Not Available [facility] - production 4 03:34:22 7026 Bactrim medicatio n Not available Not available Not available 02/11/2024 07788 9 RxNorm Not Available [facility] - production 5 09:05:30 Medications Name Sig [...] /min 96 % 140/82 mm[Hg] Not Available [facility] - production 5 11:21:26 Social History None recorded. Functional Status None recorded. Mental Status None recorded. Family History Nothing Reported. Medical History No medical history recorded. Gynecological HistoryNo gynecological history recorded. Obstetrics History GPAL:G 0 P 0 0 0 0 Past Encounters Encounter ID Performer Location Encounter Start Date Encounter Closed Date Diagnosis/Indication Diagnosis SNOMED-CT Code Diagnosis ICD10 Code Diagnosis IMO Codes Diagnosis Note [id number] Ondina Velazquez MD [facility] [address] [address] 02/02/2025 16:01:19 02/03/2025 12:13:10 Bacterial conjunctivitis 736019397 H10.9 39848 w/ blephariti sAdvised to throw out any [...] he verbalized understand ing to the medic [id number] Mary Cosme MD [facility] [address] [address] 02/24/2025 11:21:17 02/24/2025 13:01:47 Common cold 59972268 J00 69072 Health Concerns Section Related Observation LastModified by Organization Detai ls LastModified Time None Recorded Concern Status LastModified by Organization Details LastModified Time None Recorded Payers Encounter Date Sequence Insurance Name Policy Number Policy Barba Covered Member ID Barba Member ID Guarantor Name 02/24/2025 1 [facility] - DOS ON OR AFTER 2022 - DUAL ELIGIBLE - PENITENTIARY OPTIONS AND ONE CARE (MEDICARE REPLACEMENT/ADV ANTAGE - HMO) Rhona Gandara [id number] Rhona Gandara Notes Date Note Type Note Provider Name and Address Organization Details Recorded Time 02/24/2025 text/html [facility] Nurse Triage Notes (Antoinette Kaplan): Reason For Request: Member thinks she has [...] signs of when to seek emergency care. Pin Ball Machine Mechanic Organization Information for [employer] Name: [employer]. Address: [address] [place] [address], Aerosol Line Operator: Garrett Nevarez MD CLIA No.: [id number] Pin Ball Machine Mechanic POC Test Results from [facility] Rapid influenza antigen (11:02:37) Flu: - Rapid COVID antigen (11:02:38) COVID: - ...................... ...................... ...................... ...................... ...................... ...................... ......... Pin Ball Machine Mechanic Note From [facility]: Dispatched to the [...] taken and results uploaded to Pts portal. [facility] consulted. Pt advised to call her PCP for out Pt X-ray or go to an urgent care for one. Red flags discussed. ALL times are approx. [facility] Lab Orders: rapid SARS CoV 2 Ag, QL IA, respiratory specimen: Performed rapid flu (A+B): Performed ...................... ...................... ...................... ...................... ...................... ...................... ......... [facility] Consulted: Mary Cosme ...................... ...................... ...................... ...................... ...................... ...................... ......... Disposition: Fulfilled Mary Cosme MD [address] [facility],[address] [facility], [place], [address], [employer] [facility]TER 02/24/2025 12:15:03 OBGyn Episode No OBEpisode recorded.
--- OUTSIDE RECORDS SUMMARY | 2025-03-10 16:58 | XMS_ITS | Data Portability ---
Author Organization [place] [facility], Allergy Address [address] [address] Care Team Providers Care Solderer Electronic Name Role Phone NICOLÁS LESA Primary Care Provider [phone] Assessment Encounter Date Assessment Date Assessment LastModified by Organization Details LastModified Time 01/08/2025 01/08/2025 70 year old female, with a history of chronic migraine, presents for evaluation of chronic sinusitis. CT head without contrast performed 01/05/25 at [facility] showed no parenchymal hemorrhage, midline shift, or [...] testing (PROC) 2024 025 [email or web address] Not available 13:49:13 pulmonary function test procedure (PROC) 2024 [...] contr ast No observ ation record ed. [email or web address] Not Available 12/15 11:03:54 Result Notes None recorded. Problems Name Problem SNOMED Code Status Onset Date Resolution Date Notes Provider Name and Address Organization Details Recorded Time Difficult y speaking Active 2014 Symptoms involving head and neck: Hoarsenes s; Note: Date Diagnosed : 08/30/2014 2:05 PM (784.42) Not Available [facility] 4 02:32:49 Harmful pattern of use of alcohol 02158541 Active 2018 Alcohol use disorder, mild; Note: Date Diagnosed : 08/11/2018 4:23 PM (F10.10) Not Available [facility] 4 02:32:48 Impacted cerumen of bilateral ears 54579083173 83850 Active 2018 Impacted cerumen, bilateral ; Note: Date Diagnosed : 08/11/2018 4:23 PM (H61.23) Not Available [facility] 4 02:32:50 Dysphonia 22942949 Active 2018 Hoarsenes s; Note: Date Diagnosed : 08/11/2018 4:23 PM (R49.0) Not Available [facility] 4 02:32:41 Tobacco dependenc e caused by cigarette s 12122812378 937737 Active 2018 Nicotine dependenc e, cigarette s, uncomplic ated; Note: Date Diagnosed : 08/11/2018 4:23 PM (F17.210) Not Available [facility] 4 02:32:39 Edema of larynx 53736907 Active 2018 Edema of larynx; Note: Date Diagnosed : 08/11/2018 4:23 PM (J38.4) Not Available [facility] 4 02:32:51 Chronic rhinitis 10993484 Active 2018 Rhinitis, chronic; Note: Date Diagnosed : 08/30/2014 2:05 PM (472.0) ; Start Date : 5 Chronic rhinitis; Note: Date Diagnosed : 08/11/2018 4:23 PM (J31.0) Not Available [facility] 4 02:32:46 Dysphagia 99725419 Active 2018 Dysphagia , unspecifi ed; Note: Date Diagnosed : 08/11/2018 4:23 PM (R13.10) Not Available [facility] 4 02:32:46 Bilateral tinnitus 52550975992 02 Active 2021 Tinnitus, bilateral ; Note: Date Diagnosed : 03/23/2022 10:21 AM (H93.13) Not Available [facility] 4 02:32:44 Migraine without aura, not refractor y 369278157 Active 2021 Migraine without aura, not intractab le, without status migrainos us; Note: Date Diagnosed : 03/23/2022 12:11 PM (G43.009) Not Available [facility] 4 02:32:42 Dizziness and giddiness 550327208 Active 2021 Dizziness and giddiness ; Note: Date Diagnosed : 03/23/2022 10:21 AM (R42) Not Available [facility] 4 02:32:40 Sensorine ural hearing loss 53704251 Active 2021 Sensorine ural hearing loss, unilatera l, left ear, with unrestric shane hearing on the contralat eral side; Note: Date Diagnosed : 03/23/2022 10:21 AM (H90.42) Not Available [facility] 4 02:33:00 Sensorine ural hearing loss of bilateral ears 753045267 Active 2022 Sensorine ural hearing loss, bilateral ; Note: Date Diagnosed : 12/27/2022 11:59 AM (H90.3) Not Available [facility] 4 02:32:43 Abnormal sensation 952685739 Active 2024 MIL[facility] AVALOS [address], [place], [address] , [facility] 5 17:09:11 Migraine 87062613 Active 2024 MIL[facility] AVALOS [address],[facility] [address], [place], [address] , [facility] 5 16:05:47 Allergic rhinitis 99883469 [facility] 2024 MILTON AVALOS [address], [place], [address] , [facility] 5 16:06:08 Problem Notes None recorded. Medical Equipment None Reported. Allergies Allergen ID Allergen Name Allergen Category Reaction Reaction Severity Criticality Documentation Date Start Date Code Code System Note Provider Name and Address Organization Details Recorded Time 72561 Ceclor medicatio n other Not available Not available 08/27/202353378 5 RxNorm React ion: unkno wn, unspe cifie d;; Not Available [facility] 4 00:56:50 06195 penicilli n V potassium medicatio n other Not available Not available 08/27/202335758 5 RxNorm React ion: unkno wn, unspe cifie d;; Not Available [facility] 4 00:56:55 71372 Substance with sulfonami de structure and antibacte rial mechanism of action (substanc e) medicatio n other Not available Not available 08/27/2023 06291 8003 SNOMED React ion: unkno wn, unspe cifie d;; Not Available [facility] 4 00:56:56 Medications Name Sig Start Date [...] 325 mg tablet active Medicati on ID: 349497 B rand Name: acetamin ophen Se nd Method: E-Prescr ibed Sub s Allowed: subs OK Medic ationGen ericName : acetamin ophen Not Available Not Available Not Available prednison e 10 mg tablet PLEASE SEE ATTACHED FOR DETAILED DIRECTIO NS active Not Available Not Available No t Available nitrofura ntoin macrocrys inocencio 50 mg capsule 01/25 completed Medicati on ID: 475286 D uration Value: 30 Brand Name: nitrofur antoin macrocry stal Sen d Method: E-Prescr ibed Sub s Allowed: subs OK Speci al Instruct ion: TK 1 C PO QD Medic ationGen ericName : nitrofur antoin macrocry stal Not Available Not Available Not Available oxybutyni n chloride ER 15 mg tablet,ex tended release 24 hr 01/25 completed Medicati on ID: 983699 D uration Value: 30 Brand Name: oxybutyn [...] %) eye drops active Medicati on ID: 099832 B rand Name: ketotife n fumarate Send [...] 15 mg tablet active Medicati on ID: 900958 B rand Name: meloxica m Send Method: [...] elayed release 01/25 completed Medicati on ID: 86214 Du ration Value: 30 Brand Name: Nexium [...] mg tablet 03/23 completed Medicati on ID: 932771 B rand Name: tramadol Send Method: E-Prescr [...] in a packet active Medicati on ID: 341648 B rand Name: Cholesty ramine Light Se nd Method: E-Prescr ibed Sub s Allowed: subs OK [facility] Cholesty ramine Light Not Available [...] mg tablet 03/23 completed Medicati on ID: 70395 Du ration Value: 30 Brand Name: citalopr [...] mg tablet 03/23 completed Medicati on ID: 652679 B rand Name: baclofen Send Method: E-Prescr ibed Sub s Allowed: subs OK [facility] : baclofen Not Available Not Available [...] iron) tablet 03/23 completed Medicati on ID: 577637 D uration Value: 30 Brand Name: ferrous sulfate Send Method: E-Prescr ibed Sub s Allowed: subs OK Medic ationGen ericName : ferrous sulfate Not Available Not Available Not Available ropinirol e 0.5 mg tablet active Medicati on ID: 375020 B rand Name: ropiniro le Send Method: [...] mg tablet 03/23 completed Medicati on ID: 32929 Du ration Value: 20 Brand Name: benztrop [...] mg tablet 03/23 completed Medicati on ID: 929151 D uration Value: 15 Brand Name: alprazol am Send Method: E-Prescr ibed Sub s Allowed: subs OK Medic ationGen ericName : alprazol am Not Available Not Available Not Available ibuprofen 600 mg tablet PLEASE SEE ATTACHED FOR DETAILED DIRECTIO NS active Not Available Not Available No t Available polyethyl nilton glycol 3350 17 gram/dose oral powder 03/23 completed Medicati on ID: 555122 D uration Value: 30 Brand Name: polyethy [...] mg tablet 01/25 completed Medicati on ID: 05196 Du ration Value: 30 Brand Name: oxybutyn [...] mg tablet 03/23 completed Medicati on ID: 039523 B rand Name: amitript yline Se nd Method: E-Prescr ibed Sub s [...] xtended release 03/23 completed Medicati on ID: 137723 D uration Value: 90 Brand Name: Cartia XT Send Method: E-Prescr ibed Sub s Allowed: subs OK Medic ationGen ericName : Cartia XT Not Available Not Available Not Available cholecalc iferol (vitamin D3) 25 mcg (1,000 unit) capsule 03/23 completed Medicati on ID: 699105 D uration Value: 30 Brand Name: cholecal [...] 20 mg tablet active Medicati on ID: 695114 B rand Name: aripipra zole Sen d [...] 100 mg capsule active Medicati on ID: 242972 B rand Name: nitrofur antoin monohyd/ m-cryst Send Method: E-Prescr ibed Sub s Allowed: subs OK Medic ationGen ericName : nitrofur antoin monohyd/ m-cryst Not Available Not Available Not Available duloxetin e 30 mg capsule,d elayed release active Medicati on ID: 203641 B rand Name: duloxeti ne Send Method: E-Prescr ibed Sub s Allowed: subs OK Medic ationGen ericName : duloxeti ne Not Available Not Available Not Available duloxetin e 60 mg capsule,d elayed release TAKE 1 CAPSULE BY MOUTH TWICE A DAY active Not Available Not Available No t Available sodium chloride 03/23 completed Medicati on ID: 551862 B rand Name: sodium chloride Send Method: E-Prescr ibed Sub s Allowed: subs OK Medic ationGen ericName : sodium chloride Not Available Not Available Not Available sodium chloride 1,000 mg soluble tablet TAKE 1 TABLET BY MOUTH THREE TIMES A DAY active Not Available Not Available No t Available oxycodone 10 mg tablet 08/11 completed Medicati on ID: 47789 Du ration Value: 28 Brand Name: oxycodon e Send Method: E-Prescr ibed Sub s Allowed: subs OK Speci al Instruct ion: TK 1 T PO TID Medi cationGe nericNam e: oxycodon e Not Available Not Available Not Available desvenlaf axine succinate ER 100 mg tablet,ex tended release 24 hr 03/23 completed Medicati on ID: 612394 B rand Name: desvenla faxine succinat e [...] Not Available Not Available No t Available Gisselle-M 9 mg iron-400 mcg tablet 03/23 completed Medicati on ID: 187359 B rand Name: Eugenio Diane Send Method: E-Prescr ibed Sub s Allowed: subs OK Medic ationGen ericName : Joshms- M Not Available Not Available Not Available [...] Address Organization Details Last Updated DateTime 01/08/2025 96248.01 g 23 kg/m2 160.02 cm Corinna Howard [place] - [facility] 01/08/2025 13:23:38 Social History None recorded. Functional Status None recorded. Mental Status None recorded. Family History Nothing Reported. Medical History No medical history recorded. Gynecological HistoryNo gynecological history recorded. Obstetrics History GPAL:G 0 P 0 0 0 0 Past Encounters Encounter ID Performer Location Encounter Start Date Encounter Closed Date Diagnosis/Indication Diagnosis SNOMED-CT Code Diagnosis ICD10 Code Diagnosis IMO Codes Diagnosis Note [id number] [facility] AVAL[facility] [address] [address] 01/08/2025 13:04:16 01/08/2025 14:52:42 Abnormal sensation 765008786 R44.8 95486905 Migraine 28275947 G43.80 9 0346021 Allergic rhinitis 092004 04 J30.89 7978670 Health Concerns Section Related Observation LastModified by Organization Detai ls LastModified Time None Recorded Concern Status LastModified by Organization Details LastModified Time None Recorded Advance Directives Directive None Recorded Payers Insurance Date Sequence Insurance Name Policy Number Policy Barba Covered Member ID Barba Member ID Guarantor Name 12/28/2024 1 [facility] - DOS ON OR AFTER 2022 - ONE CARE (MEDICARE REPLACEMENT/ADV ANTAGE - HMO) Rhona Gandara [id number] Rhona Gandara 01/08/2025 1 [facility] - DOS ON OR AFTER 2022 - JAIL OPTIONS (MEDICARE REPLACEMENT/ADV ANTAGE - HMO) Rhona Gandara [id number] Rhona Gandara 12/28/2024 2 [facility] [place]MEDICARE REPLAC[place]/ADV ANTAGE - HMO) Rhona Gandara [id number] Rhona Gandara 12/28/2024 1 [facility] - DOS ON OR AFTER 2022 - MEDICARE [place]VANTAGE [place] (MEDICARE REPLACEMENT/ADV ANTAGE - PPO) Rhona Gandara [id number] Rhona Gandara Notes Date Note Type Note Provider Name and Address Organization Details Recorded Time 01/08/2025 text/html ROS as noted in the HPI 70 year old female, with a history of chronic migraine, presents for evaluation of chronic sinusitis. Patient was recently seen at [facility] on 01/05/25 for head trauma following a [...] and purulent nasal discharge. RICKY MARX MD [address] [place] [address], [phone], [facility] - [facility] 01/10/2025 20:37:19 OBGyn Episode No OBEpisode recorded.
--- OUTSIDE RECORDS SUMMARY | 2025-03-10 16:58 | XMS_ITS | Data Portability ---
Author Organization [place] - [facility] Address [address] [place] [id number] Care Team Providers Care Inspector Water Pollution Control Name Role Phone [facility] Primary Care Provider [facility] OTHER Assessment Encounter Date Assessment [...] after care of this patient according to [facility]'s infection prevention protocols. In order to obtain [...] ovarian cyst(s) completed Alivia Sorensen NP [address] [place], [address], [facility] 01/07/2021 15:59:36 open reduction of fracture of femur completed Alivia Sorensen NP [address] [place] [address], [address], [facility] 01/07/2021 15:59:43 closed reduction of fracture of hip completed Alivia Sorensen NP [address] [place], [address], [facility] 01/07/2021 15:59:51 Imaging Results None recorded. Procedure Notes None recorded. Medical Equipment None Reported. Allergies Allergen ID Allergen Name Allergen Category Reaction Reaction Severity Criticality Documentation Date Start Date Code Code System Note Provider Name and Address Organization Details Recorded Time 510132 Product containin g penicilli n (product) medicatio n Not available Not available Not available 01/07/2021 40024 8001 SNOMED Alivia Sorensen NP [address] [place], [address], [place] [facility] 15:53:47 428642 Ceclor medicatio n Not available Not available Not available 01/07/202112085 5 RxNorm Alivia Sorensen NP [address] [facility], [place], [address], [place] [facility] 15:53:53 [id number] Substance with sulfonami de structure and antibacte rial mechanism of action (substanc e) medicatio n Not available Not available Not available 01/07/2021 36437 8003 SNOMED Alivia Sorensen, MISSILEMAN [address] [place] [address], [place], [address], [place] [facility] 15:54:00 Medications [...] and Address Organization Details Last Updated DateTime 1 78 /min 91 % 20 /min 98.9 [degF] 124/76 mm[Hg] Not Available [facility] 15:55:18 Social History Question Answer Notes LastModified by Organizat ion Details LastModified Time Tobacco Smoking Status Current Every Day Smoker Alivia Sorensen, LIDIA [address] [place], [address], [place] [facility] 01/07/2021 15:57:59 Do You [...] Visiting Friends Or Family Or Going To Pentecostal Or Club Meetings) 1 Or 2 Times [...] History Condition Response Coronary Artery Disease N Depression Y COPD Y Diabetes N Cancer N Stroke N Asthma N High Cholesterol Y Pulmonary Embolism Y Hypertension Y Kidney Disease N Gynecological HistoryNo gynecological history recorded. Obstetrics History GPAL:G 0 P 0 0 0 0 Past Encounters Encounter ID Performer Location Encounter Start Date Encounter Closed Date Diagnosis/Indication Diagnosis SNOMED-CT Code Diagnosis ICD10 Code Diagnosis IMO Codes Diagnosis Note [id number] Alivia Sorensen NP [facility] [address] [place] [address] 01/07/2021 15:51:31 01/12/2021 17:24:04 Suspected COVID-19 616262800 Z03.89 Dyspnea 457285589 R06.00 Oxygen sat uration below reference range 609176535 R79.81 Health Concerns Section Related Observation LastModified by Organization Detai ls LastModified Time None Recorded Concern Status LastModified by Organization Details LastModified Time None Recorded Advance Directives Directive N: Payers Insurance Date Sequence Insurance Name Policy Number Policy Barba Covered Member ID Barba Member ID Guarantor Name 01/12/2021 1 [facility] - DOS PRIOR TO 2022 - DUAL ELIGIBLE (MEDICARE REPLACEMENT/ADV ANTAGE - HMO) Rhona Gandara [id number] Rhona Gandara 01/06/2021 1 *SELF PAY* Rhona Gandara [id number] Rhona Gandara Notes Date Note Type Note Provider Name and Address Organization Details Recorded Time 01/07/2021 text/html COVID-19 Symptom s August 2019Reported by Patient Patient is a 66 year old alert [...] OA Alivia Sorensen NP [address], [place], [address], [place] [facility] 01/07/2021 16:40:23 OBGyn Episode No OBEpisode recorded.
== END 2025-03-10 14:30 | disposition home or self-care (01) ==
LOC: HO.HSMS 13:55
PROVIDERS: PCP Nurse Practitioner Family; Visit Provider Psychiatry & Neurology Neurology
DX: G43.711 Chronic migraine without aura, intractable, with status migrainosus (principal); G44.209 Tension-type headache, unspecified, not intractable
CPT/HCPCS: 99214

== ENCOUNTER 2025-03-25 14:47 | Outpatient (AMB) | payer OTHER, SELFPAY ==
--- NOTE | 2025-03-25 15:17 | HO.NEPHOV_ITS ---
Vital Signs 03/25/25 15:18 Height 5 ft Weight 123 lb 8 oz BMI 24.1 BP 150/80 H Blood Pressure Location Lt brachial Position Sitting Pulse 83 Pulse Source Pulse Oximeter Pulse Oximetry (%) 95 Oxygen Delivery Method Room Air Intake Visit Reasons: Rscng missed appt-Mailbox Full Robotic Maintenance Technician Required: No Accompanied by: Self / Same As Patient Allergies succinylcholine Adverse Reaction (Severe, Verified 03/25/25 15:18) choline estrace deficiency cefaclor (From Ceclor) Adverse Reaction (Intermediate, Verified 03/25/25 15:18) hives Penicillins Adverse Reaction (Intermediate, Verified 03/25/25 15:18) hives Sulfa (Sulfonamide Antibiotics) Adverse Reaction (Intermediate, Verified 03/25/25 15:18) hives Tetanus Vaccines and Toxoid Adverse Reaction (Verified 03/25/25 15:18) Hemiparesis HPI Comments Details: Rhona was seen in follow-up of her hyponatremia and hypertension. She had H/O Alcohol use disorder. She has no new weakness or mentation changes. She has no edema, shortness of breath or orthostatic symptoms. She does not have any nausea, vomiting or diarrhea. She is taking sodium chloride tablets 1 GM tid now. She had a fall and sustained C6 # & is on collar [facility] Medical History Alcohol abuse Drug abuse, IV Migraine with aura Neuroleptic-induced tardive dyskinesia COVID-19 vaccine series completed Back pain GERD (gastroesophageal reflux disease) Vertigo Anemia Hyponatremia Fracture of left femur Smoker Thyroid disease Asthma Schizoaffective disorder Hepatitis COPD (chronic obstructive pulmonary disease) Elevated cholesterol HTN (hypertension) Surgical History H/O skin graft S/P hardware removal Hx of elbow surgery History of pubovaginal sling History of esophagogastroduodenoscopy (EGD) Hx of colonoscopy History of appendectomy History of hip surgery Social History Household Members Other:: LABOR AND DELIVERY REGISTERED NURSE Are you a primary childcare center director to a significant other at home: No Do you presently have visiting nurse or other home services: Yes (LABOR AND DELIVERY REGISTERED NURSE) Patient Tobacco Use Status: Current everyday Tobacco user Tobacco use type: Cigarette Cigarette Packs Per Day: 0.25 Cigarettes Per Day: 2 Years Smoked: 44 On Nicotene patch and lozengers to quit smoking started 2 weeks ago Second Hand Smoke Exposure: Yes Advance Directives Date on File: 05/27/20 Review of Systems Const All systems reviewed & are unremarkable except as noted in HPI and below Physical Exam Vital Signs: Last Vital Signs Pulse 83 03/25/25 15:18 BP 150/80 H 03/25/25 15:18 Pulse Ox 95 03/25/25 15:18 Oxygen Delivery Method Room Air 03/25/25 15:18 BMI result Body Mass Index 24.1 Const Other: Neck collar + General: comfortable and no acute distress Orientation/consciousness: patient oriented x3 HEENT Head: Yes normocephalic Mouth: Normal oral and palatal mucosa present Eyes EOM: EOMs intact bilaterally Neck Neck: Yes supple Resp Auscultation: clear to auscultation bilaterally Cardio Jugular venous distension: no JVD Rate: regular rate GI Palpation (GI): Soft to palpation Auscultation: normal bowel sounds General: Yes no CVA tenderness Back/Spine/Pelvis Back: no CVA tenderness Skin General skin exam: no rashes or lesions noted Neuro General: patient oriented x3 and moves all extremities Extrem General: Yes edema Results Reviewed Nephrology Results: Sodium, (135-145) 136 mmol/L 03/10/25 Potassium, (3.3-5.1) 5.0 mmol/L 03/10/25 Chloride, (96-108) 104 mmol/L 03/10/25 Carbon Dioxide, (22-29) 23 mmol/L 03/10/25 BUN, (9-16) 10 mg/dL 03/10/25 Creatinine, (0.5-1.4) 0.84 mg/dL 03/10/25 Assessment & Plan Assessment & Plan (1) HTN (hypertension): Code(s): I10 - Essential (primary) hypertension Category: Medical Qualifiers: Hypertension type: primary hypertension Qualified Code(s): I10 - Essential (primary) hypertension (2) Hyponatremia: Code(s): E87.1 - Hypo-osmolality and hyponatremia Category: Medical Plan Rhona has some hyponatremia due to excess ADH. She is mildly hypervolemic. I reduced her NaCL tabs to bid. She has no orthostatic symptoms or any symptoms . She had taken demeclocycline the past which she had discontinued. Her blood pressure may get to goal after cutting back on NaCl tabs. All her questions were answered. Orders: Orders Electrolytes 4 Weeks E87.1 - Hypo-osmolality and hyponatremia, I10 - Essential (primary) hypertension Coding Level of Care Code Est Pt Level 4 (76409) Diagnoses Primary hypertension I10 Hypertension type: primary hypertension Hyponatremia E87.1
[2025-03-25 15:18] VITALS: BP 150/80; PULSE 83; O2SAT 95; BMI 24.1
--- OUTSIDE RECORDS SUMMARY | 2025-03-25 22:19 | XMS_ITS | Data Portability ---
Author Organization [place] - [facility] Address [address] [place] [phone] Care Team Providers Care Relocation Director Name Role Phone [facility] Primary Care Provider [facility] OTHER Assessment Encounter Date Assessment [...] of this patient according to [facility]'s infection prevention protocols. In order to obtain [...] ovarian cyst(s) completed Alivia Sorensen NP [address] [place], [address], [facility] 01/07/2021 15:59:36 open reduction of fracture of femur completed Alivia Sorensen NP [address] [place] [address], [address], [facility] 01/07/2021 15:59:43 closed reduction of fracture of hip completed Alivia Sorensen NP [address] [place], [address], [facility] 01/07/2021 15:59:51 Imaging Results None recorded. Procedure Notes None recorded. Medical Equipment None Reported. Allergies Allergen ID Allergen Name Allergen Category Reaction Reaction Severity Criticality Documentation Date Start Date Code Code System Note Provider Name and Address Organization Details Recorded Time 645427 Product containin g penicilli n (product) medicatio n Not available Not available Not available 01/07/2021 91938 8001 SNOMED Alivia Sorensen NP [address] [place], [address], [place] [facility] 15:53:47 180761 Ceclor medicatio n Not available Not available Not available 01/07/202162057 5 RxNorm Alivia Sorensen NP [address] [facility], [place], [address], [place] [facility] 15:53:53 571374 Substance with sulfonami de structure and antibacte rial mechanism of action (substanc e) medicatio n Not available Not available Not available 01/07/2021 27846 8003 SNOMED Alivia Sorensen, REGULATOR OPERATOR [address] [place] [address], [place], [address], [place] [facility] 15:54:00 Medications [...] /min 98.9 [degF] 124/76 mm[Hg] Not Available [facility] 15:55:18 Social History Question Answer Notes LastModified by Organizat ion Details LastModified Time Tobacco Smoking Status Current Every Day Smoker Alivia Sorensen, LIDIA [address] [place], [address], [place] [facility] 01/07/2021 15:57:59 Do You [...] Visiting Friends Or Family Or Going To Mormon Or Club Meetings) 1 Or 2 Times [...] ICD10 Code Diagnosis IMO Codes Diagnosis Note [id number] Alivia Sorensen NP [facility] [address] [place] [address] 01/07/2021 15:51:31 01/12/2021 17:24:04 Suspected COVID-19 292349991 Z03.89 Dyspnea 848770816 R06.00 Oxygen sat uration below reference range 719428124 R79.81 Health Concerns Section Related Observation LastModified by Organization Detai ls LastModified Time None Recorded Concern Status LastModified by Organization Details LastModified Time None Recorded Advance Directives Directive N: Payers Insurance Date Sequence Insurance Name Policy Number Policy Barba Covered Member ID Barba Member ID Guarantor Name 01/12/2021 1 [facility] - DOS PRIOR TO 2022 - DUAL ELIGIBLE (MEDICARE REPLACEMENT/ADV ANTAGE - HMO) Rhona Gandara [id number] Rhona Gandara 01/06/2021 1 *SELF PAY* Rhona Gandara [id number] Rhona Gandara Notes Date Note Type Note [...] OA Alivia Sorensen NP [address], [place], [address], [place] [facility] 01/07/2021 16:40:23 OBGyn Episode No OBEpisode recorded.
--- OUTSIDE RECORDS SUMMARY | 2025-03-25 22:19 | XMS_ITS | Encounter Summary ---
Author Organization [facility] Address [address] [place] [address] [place] [address] Phone Care Team Providers Care Senior Ui Developer Name Role Phone Sole Hendricks MD Unavailable [phone] Sanjay Carl DIRECTOR LONG TERM CARE Primary Care Provider [phone] Encounter Details Date Type Department Care Team (Late st Contact Info) Description 02/01/2023 Procedure Pass OR Admitting Dept - Virtual Department [address] [place] [address] Social History Tobacco Use Types Packs/Day Years [...] filedocumented in this encounter Care Teams Senior Ui Developer Relationship Specialty Start Date End Date Sanjay Carl, DIRECTOR LONG TERM CARE [address] [place] [address] PCP - General Nurse Practitioner 12/19/22 Sole Hendricks MD [address] [place] [address] Dermatology 12/12/22 documented as of this encounter Additional Source Comments The information contained in this document represents components of the legal health record. It is not the complete legal health record.[facility]
--- OUTSIDE RECORDS SUMMARY | 2025-03-25 22:19 | XMS_ITS | Continuity of Care Document ---
Author Name [facility], Medical Address [address] [place] [address] Organization Unknown Address [address] [place] [address] Medications No known medications Problems No known problems
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
--- OUTSIDE RECORDS SUMMARY | 2025-03-25 22:19 | XMS_ITS | Clinical Summary ---
Author Organization [facility] Address [address] [place] [address] Phone Care Team Providers Care Drywall Taper Helper Name Role Phone Sanjay Carl NP Primary Care Provider [phone] Allergies Active Allergy Reactions Criticality Noted Date [...] Encounters Date Type Department Care Team Description 03/10/2025 7:07 PM EST - 03/10/2025 9:55 PM EST [facility] Emergency [address] [place] [address] Discharge Disposition: Home or Self Care 12/24/2024 7:40 PM EDT - 12/25/2024 1:05 AM EDT Emergency [facility] Emergency [address] [place] [address] Dejon Presley MD Other migraine without status migrainosus, not intractable (Primary Dx) Discharge Disposition: Home or Self Care from Last 3 Months Surgical History Surgery Date Site/Laterality Comments BLADDER SURGERY PROCEDURE: HISTORICAL BLADDER SURGERY; COMMENT: incontinence OTHER SURGICAL HISTORY 2010 PROCEDURE: [place] UNLISTED PROCEDURE LEG/ANKLE; COMMENT: compartmental fasciitis OTHER SURGICAL HISTORY 10/30/10 PROCEDURE: COLONOSCOPY, SURGICAL; COMMENT: [facility] Dr Ortiz ELBOW SURGERY 07/27/13 PROCEDURE: [...] IMPLT W/WO SCREW; COMMENT[place] [facility] [place] F[place]. Medical History Medical History Date Comments Schizoaffective disorder (CM S/HCC V24, CMS/HCC V28) DX:Schizoaffective disorder (HCC); COMMENT: cared at [facility] HTN (hypertension) DX:HTN (hyper tension) [...] SIADH (syndrome of inappropr iate ADH production) ([facility] V24) 09/26/2018 DX:SIADH (syndrome of inappr opriate ADH production) ([facility]); COMMENT: Joy Loader is Dr Adam Briceno MD Depression Anxiety COPD (chronic obstructive pu lmonary disease) ([facility] V24, [facility] V28) Overactive bladder Basal cell carcinoma Family [...] for your loved ones. For example, child abuse worker or elderly care for an older [...] Orientation Straight 07/17/2024 8: 57 AM EDT Last Filed Vital Signs Vital Sign Reading Time Taken Comments Blood Pressure 133/70 03/10/2025 7:30 PM EST Pulse 73 03/10/2025 7:30 PM EST Temperature 36.6 C (97.9 F) 12/24/2024 4:43 PM EDT Respiratory Rate 17 03/10/2025 7:30 PM EST Oxygen Saturation 95% 03/10/2025 7:30 PM EST Inhaled Oxygen Concentration - - Weight 72.6 kg (160 lb) 12/24/2024 4:43 PM EDT Height 160 cm (5' 3 ) 12/24/2024 4:43 PM EDT Body Mass Index 28.34 12/24/2024 4:43 PM EDT Plan of Treatment Health Maintenance Due Date Last Done Comments Breast Cancer Screening 1955 Colorectal Cancer Screening: Colonoscopy 1955 Diabetes: Annual Foot Exam 1967 Diabetes: Annual Retina Eye Exam 1967 DTaP,Tdap,and Td Vaccines (1 - Tdap) 01/03/1976 [...] (Bone Density Screening) 03/18/2022 Depression Screening 04/15/2024 Diabetes: Annual Urine Albumin-Creatinine Ratio (uACR) 03/10/2025 Diabetes: Blood Sugar Control Test (HGBA1C) 03/10/2025 COVID-19 Vaccine ( season) 2025 12/26/2024, 03/27/2023, 03/01/2022, Additional history exists Social Influencers of Health Screening 09/02/2025 09/02/2024 Falls Risk Assessment 09/04/2025 09/04/2024 Diabetes: Annual GFR (Glomerular Filtration Rate) 11/12/2025 11/12/2024, 09/04/2024, 09/03/2024, Additional history exists Hypertension/CHF/CAD Annual BMP Blood Test 11/12/2025 11/12/2024, 09/04/2024, 09/03/2024, Additional history exists Influenza Vaccine Completed 12/26/2024, , 03/11/2023, Additional history exists HIB Vaccines Aged Out [...] mmol/L LAB CHEMISTRY METHOD 11/12/2024 9:51 AM [facility] Potassium 4.0 3.5 - 5.5 mmol/L LAB CHEMISTRY METHOD 11/12/2024 9:51 AM [facility] Comment:Hemolysis present Chloride 105 96 - 110 mmol/L LAB CHEMISTRY METHOD 11/12/2024 9:51 AM [facility] CO2 25 21 - 32 mmol/L LAB CHEMISTRY METHOD 11/12/2024 9:51 AM [facility] Anion Gap 8 3 - 11 LAB CHEMISTRY METHOD 11/12/2024 9:51 AM [facility] Glucose 61(L) 70 - 100 mg/dL LAB CHEMISTRY METHOD 11/12/2024 9:51 AM [facility] BUN 7 5 - 25 mg/dL LAB CHEMISTRY METHOD 11/12/2024 9:51 AM [facility] Creatinine 0.81 0.50 - 1.10 mg/dL LAB CHEMISTRY METHOD 11/12/2024 9:51 AM [facility] eGFR 80 >=60 mL/min/1. 73m2 LAB CHEMISTRY METHOD 11/12/2024 9:51 AM [facility] Comment:Calculation based on the Chronic Kidney Disease Epidemiology Collaboration (CKD-EPI) equation refit without adjustment for race. BUN/Creatinine Ratio 8.6 LAB CHEMISTRY METHOD 11/12/2024 9:51 AM EDT [facility] Calcium 9.7 8.5 - 10.5 mg/dL LAB CHEMISTRY METHOD 11/12/2024 9:51 AM EDT [facility] Blood Venous blood specimen / Unknown Venipuncture / Unknown 11/12/2024 8:41 AM EDT 11/12/2024 9:16 AM EDT us Sallyjerzymarie Johnson DO LAB BLOOD ORDERABLES Final Resu lt [facility] [address] [place] [address], from Last 3 Months or Most Recently Relevant to Health Maintenance Insurance [place]ICA[place] - [place] [facility] MEDICARE Member Subscriber Plan / Payer (Ef fective 2024-Present) Name:Rhona Alcantar Relation to Subscriber:Self Name:Rhona Alcantar Payer ID:[id number] Group ID:[id number] Type:Not on file Address: [address] [place] [address] Advance Directives * Full Code - Default [...] currently active code status orders. Care Teams Drywall Taper Helper Relationship Specialty Start Date End Date Sanjay Carl NP [address] [place] [address] PCP - General Family Medicine 06/30/24
--- OUTSIDE RECORDS SUMMARY | 2025-03-25 22:19 | XMS_ITS | Continuity of Care Document ---
Author Name [facility], Medical Address [address] [place] [address] Organization Unknown Address [address] [place] [address] Medications No known medications Problems No known problems
--- OUTSIDE RECORDS SUMMARY | 2025-03-25 22:19 | XMS_ITS | Encounter Summary ---
Author Organization [facility] Address [address] [place] [address] Phone Care Team Providers Care Metrology Manager Name Role Phone Sole Hendricks MD Unavailable [phone] Sanjay Carl NP Primary Care Provider [phone] Encounter Details Date Type Department Care Team (Late st Contact Info) Description 05/17/2023 Procedure Pass [facility] Periop [address] [place] [address] Social History Tobacco Use Types Packs/Day Years [...] on filedocumented in this encounter Care Teams Metrology Manager Relationship Specialty Start Date End Date Sanjay Carl, FLOOR ASSOCIATE [address] [place] [id number] PCP - General Nurse Practitioner 12/19/22 Sole Hendricks MD [facility] [facility] [place] [address] Dermatology 12/12/22 documented as of this encounter Additional Source Comments The information contained in this document represents components of the legal health record. It is not the complete legal health record.[facility]
--- OUTSIDE RECORDS SUMMARY | 2025-03-25 22:19 | XMS_ITS | Encounter Summary ---
Author Organization [facility] Address [address] [place] [address] Phone Care Team Providers Care Mixer Machine Feeder Name Role Phone Sole Hendricks MD Unavailable [phone] Sanjay Carl NP Primary Care Provider [phone] Encounter Details Date Type Department Care Team (Late st Contact Info) Description 05/27/2023 Procedure Pass [facility] Periop [address] [place] [address] Social History Tobacco Use Types Packs/Day Years [...] on filedocumented in this encounter Care Teams Mixer Machine Feeder Relationship Specialty Start Date End Date Sanjay Carl, CASINO CHANGE ATTENDANT [address] [place] [address] PCP - General Nurse Practitioner 12/19/22 Sole Hendricks MD [facility] [facility] [place] [address] Dermatology 12/12/22 documented as of this encounter Additional Source Comments The information contained in this document represents components of the legal health record. It is not the complete legal health record.[facility]
--- OUTSIDE RECORDS SUMMARY | 2025-03-25 22:19 | XMS_ITS | Encounter Summary ---
Author Organization [facility] Address [address] [facility] [address] [facility] [address] [place] [address] Phone Care Team Providers Care Professional Application Designer Name Role Phone Sole Hendricks MD Unavailable [phone] Sanjay Carl NP Primary Care Provider [phone] Encounter Details Date Type Department Care Team (Late st Contact Info) Description 05/20/2023 Procedure Pass [facility] Periop [address] [place] [address] Social History Tobacco Use Types Packs/Day Years [...] on filedocumented in this encounter Care Teams Professional Application Designer Relationship Specialty Start Date End Date Sanjay Carl, METAL CUTTER [address] [place] [address] PCP - General Nurse Practitioner 12/19/22 Sole Hendricks MD [facility] [facility] [place] [address] Dermatology 12/12/22 documented as of this encounter Additional Source Comments The information contained in this document represents components of the legal health record. It is not the complete legal health record.[facility]
--- OUTSIDE RECORDS SUMMARY | 2025-03-25 22:19 | XMS_ITS | Continuity of Care Document ---
Author Organization [facility] Address [address] [place] [address] Care Team Providers Care Websphere Developer Name Role Phone HIM [facility] Primary Care Provider Assessment Encounter Date Assessment Date Assessment LastModified by Organization Details LastModified Time 03/01/2025 03/01/2025 As noted, we wer e called to see this patient regarding concerns of conjunctivitis. Evaluation in the field was performed by my mva reactor operator colleague, as noted above, I provided real-time [...] mg/gram (0.5 %) eye ointment 2024 025 [facility]armacy #[id number], [address] [place], [address], 14:41:26 Patient TargetsNo targets recorded. Patient InstructionsNo [...] Name and Address Organization Details Recorded Time 80127 Ceclor medicatio n Not available Not available Not available 04/28/202400299 5 RxNorm Not Available [facility] - production 15:29:00 36848 sulfameth oxazole medicatio n Not available Not available Not available 04/28/2024 71828 RxNorm Not Available [facility] - production 09:05:30 33249 Substance with sulfonami de structure and antibacte rial mechanism of action (substanc e) medicatio n Not available Not available Not available 02/24/2025 16070 8003 SNOMED [facility]30 52171 succinylc holine Not available anaphylax is dyspnea Not available Not available high 02/24/20252012 87171 RxNorm Per patie nt, respi rator y depre ssion /SOB after extub ation after recei ving this med for sedat ion anisain g a surge ry when she was 20 Not Available [facility] - [facility] - prod 15:44:39 04567 cefaclor medicatio n hives other Not available Not available Not available 02/24/20252012 2176 RxNorm Not Available [facility] - External Data [facility] - prod 5 15:45:09 48117 succinylc holine chloride medicatio n dyspnea other Not available Not available [facility] 02/24/20252023 3565 RxNorm Per patie nt, respi rator y depre ssion /SOB after extub ation after recei ving this med for sedat ion anisain g a surge ry when she was 20 Not Available [facility] - External Data [facility] - prod 5 15:45:09 86307 sulfadiaz ine medicatio n Not available Not available Not available 03/01/2025 62053 RxNorm Not Available [facility] - External [facility] - prod 5 17:18:00 63839 penicilli n V potassium medicatio n Not available Not available Not available 03/01/202576324 5 RxNorm Not Available [facility] - prod 17:20:41 37310 Vaccine product containin g only Clostridi um tetani antigen (medicina l product) medicatio n Not available Not available Not available 03/10/2025 72365 2003 SNOMED Not Available [facility] 5 15:50:10 28417 penicilli n V Not available Not available Not available Not available 03/24/20252020 7984 RxNorm Not Available [facility] - prod 5 10:38:27 7025 Product containin g penicilli n (product) medicatio n Not available Not available Not available 02/11/2024 34885 8001 SNOMED Not Available [facility] 4 03:34:22 7026 Bactrim medicatio n Not available Not available Not available 02/11/2024 27297 9 RxNorm Not Available [facility] 5 09:05:30 Medications Name [...] 5 18 /min 99 % 97.1 [degF] 49287.8 16 g 72 /min 152.4 cm 137/77 [...] ICD10 Code Diagnosis IMO Codes Diagnosis Note [id number] Ondina Velazquez MD [address] [address] 02/02/2025 16:01:19 02/03/2025 12:13:10 Bacterial conjunctivitis 160702594 H10.9 80163 w/ blephariti sAdvised to throw out any [...] he verbalized understand ing to the medic [id number] Mary Cosme MD [address] [phone] 02/24/2025 11:21:17 02/24/2025 13:01:47 Common cold 32890763 J00 96784 96611 Ilia Wilkins MD [facility] Medical [address] [address] 03/01/2025 14:36:25 03/01/2025 17:54:10 Bilateral acute conjunctivitis 3755661407 H10.33 89005229 Health Concerns Section Related Observation LastModified by Organization Detai ls LastModified Time None Recorded Concern Status LastModified by Organization Details LastModified Time None Recorded Payers Encounter Date Sequence Insurance Name Policy Number Policy Barba Covered Member ID Barba Member ID Guarantor Name 03/01/2025 1 [facility] - DOS ON OR AFTER 2022 - DUAL ELIGIBLE - ALF OPTIONS AND ONE CARE (MEDICARE REPLACEMENT/ADV ANTAGE - HMO) Rhona Juliocesar [id number] Rhona Gandara Notes Date Note Type Note Provider Name and Address Organization Details Recorded Time 03/01/2025 text/html ROS as noted in the HPI [facility] Nurse Triage Notes (Jody Moe): Reason [...] Use Disorder PMH Reviewed at 03/01/2025 - :22 Allergies Reviewed at 03/01/2025 - :22 Comments: [...] ...................... ...................... ...................... ...................... ...................... ...................... ......... Head Of Commission Department Note From Volodymyr Danielle: 70 year-old female [...] ...................... ...................... ...................... ...................... ...................... ...................... ......... [facility] Consulted: Ilia Wilkins ...................... ...................... ...................... ...................... ...................... ...................... ......... Disposition: Fulfilled ...................... ...................... ...................... ...................... ...................... ...................... ......... Head Of Commission Department Note From Volodymyr Danielle:This has been updated by the mva reactor operator, Volodymyr Danielle, at (03/01/2025 15:17:12) 70 year-old [...] at it again. Ilia Wilkins MD [address] [facility],[address], [place], [address], [facility] 03/01/2025 15:22:44 OBGyn Episode No OBEpisode recorded.
--- OUTSIDE RECORDS SUMMARY | 2025-03-25 22:20 | XMS_ITS | Continuity of Care Document ---
Author Organization [facility] Address [address] [place] [address] Care Team Providers Care Electrical System Specialist Name Role Phone HIM [facility] Primary Care Provider Assessment Encounter Date Assessment Date Assessment LastModified by Organization Details LastModified Time 02/24/2025 02/24/2025 I provided real -time medical direction via phone for this encounter and was available for additional phone-based assistance as needed. I have reviewed and agree with the Assessment and Plan as documented by the Quality Compliance Consultant. Patient given the opportunity to ask questions. Our service contacted for an assessment of: Viral URI symptoms As per above, patient with approximately several days of viral URI symptoms. Denies fever or chills. Denies chest pain, shortness of breath, dyspnea on exertion. Positive nasal congestion and dry cough. Positive sick contacts. Per regional planner on the scene, vital signs are stable and patient is afebrile. No wheezing heard on exam. COVID and Flu are both negative. No increased work of breathing and no distress. Impression: Common cold and viral URI Plan: Continue with khjf-ovf-jfuqypr medications to control symptoms. Red flags discussed [...] Ag, QL IA, respiratory specimen 2024 025 [facility], [address] [place] [address], [phone] 5 12:29:40 rapid flu (A+B) 2024 025 [facility], [address] [place] [address], [phone] 5 12:29:41 Referral None recorded. Procedures None [...] Name and Address Organization Details Recorded Time 14989 Ceclor medicatio n Not available Not available Not available 04/28/202480878 5 RxNorm Not Available [facility] - production 15:29:00 78248 sulfameth oxazole medicatio n Not available Not available Not available 04/28/2024 77691 RxNorm Not Available [facility] 09:05:30 45488 Substance with sulfonami de structure and antibacte rial mechanism of action (substanc e) medicatio n Not available Not available Not available 02/24/2025 66574 8003 SNOMED Not Available [facility] 09:05:30 35164 succinylc holine Not available anaphylax is dyspnea Not available Not available high 02/24/20252012 08838 RxNorm Per patie nt, respi rator y depre ssion /SOB after extub ation after recei ving this med for sedat ion anisain g a surge ry when she was 20 Not Available [facility] - prod 15:44:39 47966 cefaclor medicatio n hives other Not available Not available Not available 02/24/20252012 2176 RxNorm Not Available [facility] - External Data Service - prod 5 15:45:09 74922 succinylc holine chloride medicatio n dyspnea other Not available Not available [facility] 02/24/20252023 3565 RxNorm Per patie nt, respi rator y depre ssion /SOB after extub ation after recei ving this med for sedat ion chaz g a surge ry when she was 20 Not Available [facility] - External Data Service - prod 5 15:45:09 74928 sulfadiaz ine medicatio n Not available Not available Not available 03/01/2025 02880 RxNorm Not Available [facility] - External Data [facility] - prod 5 17:18:00 32031 penicilli n V potassium medicatio n Not available Not available Not available 03/01/202596766 5 RxNorm Not Available [facility] - External Data [facility] - prod 17:20:41 71844 Vaccine product containin g only Clostridi um tetani antigen (medicina l product) medicatio n Not available Not available Not available 03/10/2025 14120 2003 SNOMED Not Available [facility] 5 15:50:10 16372 penicilli n V Not available Not available Not available Not available 03/24/20252020 7984 RxNorm Not Available [facility] - External Data [facility] - prod 5 10:38:27 7025 Product containin g penicilli n (product) medicatio n Not available Not available Not available 02/11/2024 28190 8001 SNOMED Not Available [facility] 4 03:34:22 7026 Bactrim medicatio n Not available Not available Not available 02/11/2024 59028 9 RxNorm Not Available [facility] 5 09:05:30 Medications Name [...] ICD10 Code Diagnosis IMO Codes Diagnosis Note [id number] Ondina Velazquez MD [address] [address] 02/02/2025 16:01:19 02/03/2025 12:13:10 Bacterial conjunctivitis [id number] H10.9 95922 w/ blephariti sAdvised to throw out any [...] he verbalized understand ing to the medic [id number] Mary Cosme MD [address] [address] 02/24/2025 11:21:17 02/24/2025 13:01:47 Common cold 47670188 J00 22885 Health Concerns Section Related Observation LastModified by Organization Detai ls LastModified Time None Recorded Concern Status LastModified by Organization Details LastModified Time None Recorded Payers Encounter Date Sequence Insurance Name Policy Number Policy Barba Covered Member ID Barba Member ID Guarantor Name 02/24/2025 1 [facility] - DOS ON OR AFTER 2022 - DUAL ELIGIBLE - PENITENTIARY OPTIONS AND ONE CARE (MEDICARE REPLACEMENT/ADV ANTAGE - HMO) Rhona Gandara [id number] Rhoan Gandara Notes Date Note Type Note Provider [...] Hypertension, Substance Use Disorder PMH Reviewed at 02/24/2025:10 Allergies Reviewed at 02/24/2025:10 Comments: 70 y.o [...] signs of when to seek emergency care. Quality Compliance Consultant Organization Information for [facility] [employer] Legal Name: [employer]. Address: [address] [place] [id number], Supply Chain Project Manager: Garrett SANDOVAL No.: [id number] Quality Compliance Consultant POC Test Results from [facility] - ALS Rapid influenza antigen (11:02:37) Flu: - Rapid COVID antigen (11:02:38) COVID: - ...................... ...................... ...................... ...................... ...................... ...................... ......... Quality Compliance Consultant Note From EliuYang saavedra: Dispatched to the call address for the [...] taken and results uploaded to Pts portal. [facility] consulted. Pt advised to call her PCP for out Pt X-ray or go to an urgent care for one. Red flags discussed. ALL times are approx. [facility] Lab Orders: rapid SARS CoV 2 Ag, QL IA, respiratory specimen: Performed rapid flu (A+B): Performed ...................... ...................... ...................... ...................... ...................... ...................... ......... [facility] Consulted: Mary Cosme ...................... ...................... ...................... ...................... ...................... ...................... ......... Disposition: Fulfilled Mary Cosme MD [address] [facility],[address], [place], [address], [facility] 02/24/2025 12:15:03 OBGyn Episode No OBEpisode recorded.
--- OUTSIDE RECORDS SUMMARY | 2025-03-25 22:20 | XMS_ITS | Encounter Summary ---
Author Organization [facility] Address [address] [place] [address] Encounters * CPT with Medical instED at [facility] on 2025-03-10 { reasonForRequest : pt has pink eye that has not cleared with cream , dedrick entReports : , denies :[ Leos Flash, circumferential leos , Leos reported with black tissue to the area , Open skin area after a fall with uncontrolled bleeding , Abscess/infection with streaking noted, presence of fever or without& quot;], chiefComplaints : Eye Complaint , pmh : COPD/Asthma, Gastroesophageal Reflux Disease (GERD), Hypothyroidism, Hypertension, Substance Use Disorder ,"allergies : Penicillins, Ceclor, Sulfa (Sulfonamide Antibiotics), Tetanus Vaccines And To xoid , otherAllergies :null, painAssessment : , visitOutcom e : , additionalComments : 70 y.o female complains of Eye Complaint\n\nPt has conjunctivitis in both eyes. She was seen on 03/01 by [facility]. She was given erythromycin ointment. She used it and it did not help.\nShe has the itchiness, burning, and redness, along with discharge.\nshe denies any fever or chills. She had a VNA today and stated vitals and temp were all normal.\nshe also has a UTI and an infection in her foot, and she has not started them yet\nI provided information on the mobile health provider response time and advised the patient and/or caregiver to monitor reported signs and symptoms. I discussed the warning signs of when to seek emergency } [facility] makes pt contact a 70 YO F cc of conjunctivitis that has not cleared after antibiotics. [facility] obtains vital signs. PT explains she had [facility] visit on 03/01 and diagnosed her with conjunctivitis. PT was prescribed erythromycin eye ointment and finished the prescription yesterday. PT is still experiencing grittiness, discharge, and also explains vision changes which is described as blurriness although better with her glasses on its still present. PT allergies confirmed to Penicillin, ceclor, sulfa, tetanus vaccine and toxoid. [facility] contacts [facility] and explains above mentioned. [facility] advisespt needs to be evaluated in person at an emergency department due to vision changes. Initially pt does not want to go but [facility] stresses the importance of being evaluated. PT agrees. [facility] contacts 911 who sends [facility]. [facility] is to transport pt to [facility]. PT is currently c-collared due to a preexisting injury. PT also has been diagnosed with a foot infection and UTI which she is supposed to start cipro today but hasnt picked up the prescription yet. This information is passed along to EMS for the receiving RN. ERICA macedo. Written by Medical instED on 2025-03-10
--- OUTSIDE RECORDS SUMMARY | 2025-03-25 22:20 | XMS_ITS | Encounter Summary ---
Author Organization [facility] Address [address] [place] [address] Encounters * CPT with Medical instED at [facility] on 2025-02-24 { reasonForRequest : Member thinks she has a bug or flu, was in the er also for this. , patientReports : , denies :[ Increased work of breathing/labored with or without fever , Unable to speak in full sentences without distress&q uot;, Discoloration of skin -cyanosis , Needs to sleep sitting up, can t catch breath , Shortness of breath in setting of confusion ], chiefComplaints : Common Cold, Wound Care , pmh : COPD/Asthma, Gastroesophageal Reflux Disease (GERD), Hypothyroidism, Hypertension, Substance Use Disorder , allergies : Penicillins, Ceclor, Sulfa (Sulfonamide Antibiotics) , otherAllergies :null, painAssessm ent : , visitOutcome : , additionalComments : 70 y.o female complains of Common Cold, Wound Care\n\nPatient calling in to place a referral\nPatient hospitalized for etoh detox 02/19-02/23, and believes she now has a bacterial/viral infection\nPatient reports a non-productive cough, chest tightness, feeling hot/cold and was unable to sleep last night\nShe denies shortness of breath, no chest pain\n+headache, no dizziness\n+bodyaches, no edema\nShe does not wear supplemental 02, has a rescue inhaler and takees Incruz\nShe has taken Tylenol\nDenies kidney disease, was hyponatremic in the hospital, not on any anticoagulation\n\nShe also reportsan ongoing wound on her right foot between her big toe and second toe, she would like evaluated\n\nI provided information on the mobile health provider response time and advised the patient and/or caregiver to monitor reported signs and symptoms. I discussed the warning signs of when to seek emergency care. } Dispatched to the call address for the [...] wound taken and results uploaded to Pts portal.[facility] consulted. Pt advised to call her PCP for out Pt X- ray or go to an urgent care for one. Red flags discussed. ALL times are approx. IV_(FLUIDS_AND/OR_MEDICATION), MEDICATION_IM, ORAL_MEDICATION, POC_BLOODWORK, WOUND_CARE Written by Medical instED on 2025-02-24
--- OUTSIDE RECORDS SUMMARY | 2025-03-25 22:20 | XMS_ITS | Continuity of Care Document ---
Author Organization [employer] in[employer] [facility] Address [address] [place] [address] Care Team Providers Care Combat Systems Operator Mine Warfare Name Role Phone HIM CCA OTHER [facility] Primary Care Provider Assessment Encounter Date Assessment Date Assessment LastModified by Organization Details LastModified Time 03/10/2025 03/10/2025 Ms. Gandara is a 70 yo F with COPD/Asthma, Gastroesophageal Reflux Disease (GERD), Hypothyroidism, Hypertension, Substance Use Disorder who is calling today about persistent vision changes. Per patient and medic, patient states that she has had some blurred vision in spite of staying compliant with the erythromycin ointment as prescribed. No fevers or chills. Blurred vision is bilateral. Feels a g ritty sensation In bilateral eyes. Feels like in the morning she does have some c rusting sensation. Does wear glasses, no contacts at baseline. Given the patient has already failed outpatient management with the erythromycin ointment and is still endorsing both blurred bilateral vision as well as some g ritty sensation to bilateral eyes, I do think she deserves and warrants an in person evaluation and ophthalmologic exam. I am worried about possibly uveitis versus corneal abrasion versus corneal ulcer. I do think it would be inappropriate to keep her at home. While this could be seasonal allergies, I do think she does warrant an exam, especially with a change of vision. No acute c/f stroke at this time or acute angle glaucoma. Patient transferred to [facility] in [place] for ER eval. Signed out at 7:17pm. I provided real -time medical direction via phone for this encounter, and was available for additional phone based assistance as needed. I have reviewed and agree with the Assessment and Plan as documented by the Plaster Lather. We discussed the diagnostic uncertainty of home visits and the risk associated with this. In this case the patient and I felt transfer to the ER was safest for disposition and continued care as their needs exceeded what could safely be supported in the home setting. [email or web address] Not available 03/10/2025 19:19:43 Plan of Treatment Reminders Order Date Submit [...] Name and Address Organization Details Recorded Time 25363 Ceclor medicatio n Not available Not available Not available 04/28/202476218 5 RxNorm Not Available [facility] - production 15:29:00 22652 sulfameth oxazole medicatio n Not available Not available Not available 04/28/2024 29553 RxNorm Not Available [facility] - production 09:05:30 71056 Substance with sulfonami de structure and antibacte rial mechanism of action (substanc e) medicatio n Not available Not available Not available 02/24/2025 01462 8003 SNOMED [facility]30 88330 succinylc holine Not available anaphylax is dyspnea Not available Not available [facility] 02/24/20252012 20141 RxNorm Per patie nt, respi rator y depre ssion /SOB after extub ation after recei ving this med for sedat ion chaz g a surge ry when she was 20 Not Available [facility] - External Data Service - prod 5 15:44:39 46300 cefaclor medicatio n hives other Not available Not available Not available 02/24/20252012 2176 RxNorm Not Available [employer] - External Data Service - prod 5 15:45:09 35913 succinylc holine chloride medicatio n dyspnea other Not available Not available high 02/24/20252023 3565 RxNorm Per patie nt, respi rator y depre ssion /SOB after extub ation after recei ving this med for sedat david arguello a surge ry when she was 20 Not Available [employer] - External Data Service - prod 5 15:45:09 55088 sulfadiaz ine medicatio n Not available Not available Not available 03/01/2025 87499 RxNorm Not Available [employer] - External Data Service - prod 5 17:18:00 penicilli n V potassium medicatio n Not available Not available Not available 03/01/202564186 5 RxNorm Not Available [facility] - External Data Service - prod 17:20:41 54945 Vaccine product containin g only Clostridi um tetani antigen (medicina l product) medicatio n Not available Not available Not available 03/10/2025 00991 2003 SNOMED Not Available [facility] 5 15:50:10 21774 penicilli n V Not available Not available Not available Not available 03/24/20252020 7984 RxNorm Not Available [facility] - External Data Service - prod 5 10:38:27 7025 Product containin g penicilli n (product) medicatio n Not available Not available Not available 02/11/2024 70877 8001 SNOMED Not Available [facility] 4 03:34:22 7026 Bactrim medicatio n Not available Not available Not available 02/11/2024 98734 9 RxNorm Not Available [facility] [...] No t Available Vitals Date Recorded Body temperature Body weight Heart rate Oxygen saturation Respiratory rate Body height Systolic And Diastolic Provider Name and Address Organization Details Last Updated DateTime 99 [degF] 08965.8 56 g 98 /min 96 % 16 /min 152.4 cm 120/85 mm[Hg] Not Available [facility] - production 18:08:20 Social History None recorded. Functional Status None recorded. Mental Status None recorded. Family History Nothing Reported. Medical History No medical history recorded. Gynecological HistoryNo gynecological history recorded. Obstetrics History GPAL:G 0 P 0 0 0 0 Past Encounters Encounter ID Performer Location Encounter Start Date Encounter Closed Date Diagnosis/Indication Diagnosis SNOMED-CT Code Diagnosis ICD10 Code Diagnosis IMO Codes Diagnosis Note [id number] Mary Cosme MD [facility] [address] [address] 02/24/2025 11:21:17 02/24/2025 13:01:47 Common cold 44985635 J00 [id number] Ilia Wilkins MD [address] [address] 03/01/2025 14:36:25 03/01/2025 17:54:10 Bilateral acute conjunctivitis 3988764098 H10.33 [id number] Brayan Bates MD [address] [address] 03/06/2025 12:44:15 03/08/2025 20:59:28 General examination of patient 407188584 Z00.00 [id number] SHEILA ESCAMILLA MD [address] [address] 03/10/2025 18:00:35 03/10/2025 22:14:34 Blurring of visual image 795351841 H53.8 11607 Health Concerns Section Related Observation LastModified by Organization Detai ls LastModified Time None Recorded Concern Status LastModified by Organization Details LastModified Time None Recorded Payers Encounter Date Sequence Insurance Name Policy Number Policy Barba Covered Member ID Barba Member ID Guarantor Name 03/10/2025 1 [facility] - DOS ON OR AFTER 2022 - DUAL ELIGIBLE - [facility] OPTIONS AND ONE CARE (MEDICARE REPLACEMENT/ADV ANTAGE - HMO) Rhona Gandara [id number] Rhona Gandara Notes Date Note Type Note Provider Name and Address Organization Details Recorded Time 03/10/2025 text/html ROS as noted in the [facility] Nurse Triage Notes (Jody Moe): Reason For Request: pt has pink eye that has not cleared with creamDenies: Leos Flash, circumferential leos Leos reported with black tissue to the area Open skin area after a fall with uncontrolled bleeding Abscess/infection with streaking noted, presence of fever or without Chief Complaints: Eye ComplaintPMH: COPD/Asthma, Gastroesophageal Reflux Disease (GERD), Hypothyroidism, Hypertension, Substance Use DisorderPMH Reviewed at 03/10/2025 - :55 (ET)Allergies Reviewed at 03/10/2025 - :55 (ET)Comments: 70 y.o female complains of Eye Complaint Pt has conjunctivitis in both eyes. She was seen on 03/01 by [facility]. She was given erythromycin ointment. She used it and it did not help.She has the itchiness, burning, and redness, along with discharge.she denies any fever or chills. She had a VNA today and stated vitals and temp were all normal.she also has a UTI and an infection in her foot, and she has not started them yetI provided information on the mobile health provider response time and advised the patient and/or caregiver to monitor reported signs and symptoms. I discussed the warning signs of when to seek emergency ...................... ...................... ...................... ...................... ...................... ...................... ......... Plaster Lather Note From Janak Cuello: [facility] makes pt contact a 70 YO F cc of conjunctivitis that has not cleared after antibiotics. [facility] obtains vital signs. PT explains she had insted visit on 03/01 and diagnosed her with conjunctivitis. PT was prescribed erythromycin eye ointment and finished the prescription yesterday. PT is still experiencing grittiness, discharge, and also explains vision changes which is described as blurriness although better with her glasses on its still present. PT allergies confirmed to Penicillin, ceclor, sulfa, tetanus vaccine and toxoid. [facility] contacts [facility] and explains above mentioned. [facility] advises pt needs to be evaluated in person at an emergency department due to vision changes. Initially pt does not want to go but [facility] stresses the importance of being evaluated. PT agrees. [facility] contacts 911 who sends [facility]. [facility] transport pt [facility]. PT is currently c-collared due to a preexisting injury. PT also has been diagnosed with a foot infection and UTI which she is supposed to start cipro today but hasnt picked up the prescription yet. This information is passed along to EMS for the receiving RN. [facility] clear. ...................... ...................... ...................... ...................... ...................... ...................... ......... [facility] Consulted: Sheila Escamilla ...................... ...................... ...................... ...................... ...................... ...................... ......... Disposition: Fulfilled SHEILA ESCAMILLA MD [address] [facility],[address], [place], [address], [employer] 03/10/2025 19:38:00 OBGyn Episode No OBEpisode recorded.
--- OUTSIDE RECORDS SUMMARY | 2025-03-25 22:20 | XMS_ITS | Clinical Summary ---
Author Organization [facility] Address [address] [facility] [address] [place] [address] Phone Care Team Providers Care Electronic Device Repairer Name Role Phone Sole Hendricks MD Unavailable [phone] Sanjay Carl TAPE DUPLICATOR Primary Care Provider [phone] Allergies Active Allergy Reactions Criticality Noted Date [...] EST) TSH 5.56 0.50 - 5.70 uIU/mL [facility] Blood 05/21/2023 6:26 AM EST 05/21/2023 7:00 AM EST us Ernie Gonsales MD LAB BLOOD BKR ORDERABLES Gela l Result [facility] [address] [place] [address] from Last 3 Months or Most Recently Relevant to Health Maintenance Insurance [address] MEDICARE REPLACEMENT [address] [place] [id number] CARE MEDICARE REPLACEMENT CARE MEDICARE REPLACEMENT CARE MEDICARE REPLACEMENT Advance Directives For more information, please contact: [phone] (9AM - 5PM Cristiane/[place], Saturday-Saturday) * Full Code (Latest Code Status on File) Date Activated Date Inactivated Comments 05/16/2023 6:17 PM Question Answer Comments Code Status Confirmed With: Patient Care Teams Electronic Device Repairer Relationship Specialty Start Date End Date Sanjay Carl NP [address] [place] [address] PCP - General Nurse Practitioner 12/19/22 Sole Hendricks MD [address] [place] [address] Dermatology 12/12/22 Additional Source Comments The information contained in this document represents components of the legal health record. It is not the complete legal health record.[facility]
--- OUTSIDE RECORDS SUMMARY | 2025-03-25 22:20 | XMS_ITS | Continuity of Care Document ---
Author Name [facility] Address [address] [place] [id number] Organization Unknown Address [address] [place] [address] Medications No known medications Problems No known problems
--- OUTSIDE RECORDS SUMMARY | 2025-03-25 22:20 | XMS_ITS | Continuity of Care Document ---
Author Organization [facility], [facility] Address [address] [place] [address] Care Team Providers Care Can Reforming Machine Operator Name Role Phone HIM CCA OTHER [facility] Primary Care Provider Assessment Encounter Date Assessment Date Assessment LastModified by Organization Details LastModified Time 03/06/2025 03/06/2025 I have reviewed and agree with the assessment and plan as documented by the district engineer. I provided real-time medical direction for this encounter and was immediately available to provide additional phone-based assistance as needed. History as noted in EMR and by district engineer. I would add / emphasize: Patient seen [...] difficulties obtaining access to the property by district engineer 911 was activated and forced entry into patient's residence after which patient was noted to be alert oriented and able to provide informed refusal of transport which was advised by district engineer and by [facility]. Patient noted to be otherwise ambulatory [...] , fingers tick, blood 025 03/06/20 25 [facility], [address] 5 17:49:15 Referral None recorde d. Procedures [...] Name and Address Organization Details Recorded Time 83972 Ceclor medicatio n Not available Not available Not available 04/28/202402194 5 RxNorm Not Available [facility] - production 15:29:00 91895 sulfameth oxazole medicatio n Not available Not available Not available 04/28/2024 14600 RxNorm Not Available [facility] - production 09:05:30 38623 Substance with sulfonami de structure and antibacte rial mechanism of action (substanc e) medicatio n Not available Not available Not available 02/24/2025 55408 8003 SNOMED Not Available [facility] - production 09:05:30 34465 succinylc holine Not available anaphylax is dyspnea Not available Not available high 02/24/20252012 14445 RxNorm Per patie nt, respi rator y depre ssion /SOB after extub ation after recei ving this med for sedat ion durin g a surge ry when she was 20 Not Available [employer] Data Service - prod 5 15:44:39 48977 cefaclor medicatio n hives other Not available Not available Not available 02/24/20252012 2176 RxNorm Not Available [employer]. External Data Service - prod 5 15:45:09 65864 succinylc holine chloride medicatio n dyspnea other Not available Not available high 02/24/20252023 3565 RxNorm Per patie nt, respi rator y depre ssion /SOB after extub ation after recei ving this med for sedat ion chaz arguello a surge ry when she was 20 Not Available [facility] - External Data Service - prod 5 15:45:09 96068 sulfadiaz ine medicatio n Not available Not available Not available 03/01/2025 61572 RxNorm Not Available [facility] - External Data Service - prod 17:18:00 88399 penicilli n V potassium medicatio n Not available Not available Not available 03/01/202548896 5 RxNorm Not Available [facility] - External Data Service - prod 17:20:41 23975 Vaccine product containin g only Clostridi um tetani antigen (medicina l product) medicatio n Not available Not available Not available 03/10/2025 81713 2003 SNOMED Not Available [facility] 15:50:10 62393 penicilli n V Not available Not available Not available Not available 03/24/20252020 7984 RxNorm Not Available [facility] - External Data Service - prod 5 10:38:27 7025 Product containin g penicilli n (product) medicatio n Not available Not available Not available 02/11/2024 59383 8001 SNOMED Not Available [facility] 4 03:34:22 7026 Bactrim medicatio n Not available Not available Not available 02/11/2024 99210 9 RxNorm Not Available [facility] 5 09:05:30 Medications Name [...] Details Last Updated DateTime 5 147.32 cm 45611.0 8 g 96 /min 96 % 16 /min 96.5 [degF] 148/96 mm[Hg] Not Available [facility] - production 14:06:19 Social History None recorded. Functional Status None recorded. Mental Status None recorded. Family History Nothing Reported. Medical History No medical history recorded. Gynecological HistoryNo gynecological history recorded. Obstetrics History GPAL:G 0 P 0 0 0 0 Past Encounters Encounter ID Performer Location Encounter Start Date Encounter Closed Date Diagnosis/Indication Diagnosis SNOMED-CT Code Diagnosis ICD10 Code Diagnosis IMO Codes Diagnosis Note [id number] Mary Cosme MD [facility] [address] [address] 02/24/2025 11:21:17 02/24/2025 13:01:47 Common cold [id number] J00 [id number] Ilia Wilkins MD [address] [address] 03/01/2025 14:36:25 03/01/2025 17:54:10 Bilateral acute conjunctivitis 3848255463 H10.33 [id number] Brayan Bates MD [facility] [address] [address] 03/06/2025 12:44:15 03/08/2025 20:59:28 General examination of patient 022554477 Z00.00 224297 Health Concerns Section Related Observation LastModified by Organization Detai ls LastModified Time None Recorded Concern Status LastModified by Organization Details LastModified Time None Recorded Payers Encounter Date Sequence Insurance Name Policy Number Policy Barba Covered Member ID Barba Member ID Guarantor Name 03/06/2025 1 [facility] - DOS ON OR AFTER 2022 - DUAL ELIGIBLE - [facility] OPTIONS AND ONE CARE (MEDICARE REPLACEMENT/ADV ANTAGE - HMO) Rhona Gandara [id number] Rhona Gandara Notes Date Note Type Note [...] at 03/06/2025 - 11:59 (ET)Allergies Reviewed at 03/06/2025:59 (ET)Comments: 70 y.o [...] signs of when to seek emergency care. Welt Pocket Machine Operator Organization Information for Volodymyr Danielle Liban Emerson Legal Name: [facility] Address: [address] [place] [address], [place] [address], Pre Billing Specialist: London Gudino MD RAMY No.: [id number] Welt Pocket Machine Operator POC Test Results from Volodymyr Danielle Liban BAILEY Blood Glucose Measurement (14:06:25) Blood Glucose: 104mg/dL ...................... ...................... ...................... ...................... ...................... ...................... ......... Welt Pocket Machine Operator Note From Volodymyr Danielle: 70-year-old female, complaining [...] be able to fall asleep fairly quickly. Pine is easily to verbal. Denies any narcotic [...] fall asleep on toilet. Patient states her PORTFOLIO STRATEGIST was here this morning and her will be back at five and she absolutely does not want to go to the hospital. Patient going to take a nap and redress her wound herself on her foot. Patient again declined, offered to go get checked out at the [facility] room. Forced entry of doors was reported [...] ...................... ...................... ...................... ...................... ...................... ...................... ......... [facility] Consulted: Brayan Bates .Trina.................... ...................... ...................... ...................... ...................... ...................... ......... Disposition: Fulfilled ...................... ...................... ...................... ...................... ...................... ...................... ......... Welt Pocket Machine Operator Note From Volodymyr Danielle:This has been updated by the district engineer, Volodymyr Danielle, at (03/06/2025 14:28:50 ET) 70-year-old [...] fall asleep on toilet. Patient states her PORTFOLIO STRATEGIST was here this morning and her will be back at five and she absolutely does not want to go to the hospital. Patient going to take a nap and redress her wound herself on her foot. Patient again declined, offered to go get checked out at the [facility] room. Forced entry of doors was reported [...] us for a visit Brayan Bates MD [address] [place] [address],[address], [place], [address], [employer] 03/07/2025 13:45:13 OBGyn Episode No OBEpisode recorded.
--- OUTSIDE RECORDS SUMMARY | 2025-03-25 22:20 | XMS_ITS | Continuity of Care Document ---
Author Organization [facility], [employer] [facility] Address [address] [place] [address] Care Team Providers Care Video System Repairer Name Role Phone HIM CCA OTHER [facility] Primary Care Provider Assessment Encounter Date Assessment Date Assessment LastModified by Organization Details LastModified Time 02/02/2025 02/02/2025 I provided real -time medical direction via phone for this encounter, and was available for additional phone based assistance as needed. I have reviewed and agree with the Assessment and Plan as documented by the Bicycle Designer. We discussed the diagnostic uncertainty of home [...] to call 911- verbalized understanding of instruction [email or web address] Not available 02/02/2025 16:12:15 Plan of Treatment Reminders Order Date Submit Date Provider Last Modified By Organization Details Last Modified Time Details Appointments None recorded. Lab None recorded. Referral None recorded. Procedures None recorded. Surgeries None recorded. Imaging None recorded. Medication Orders neomycin 3.5 mg/g-polym yxin B 10,000 unit/g-dex ameth 0.1 % eye oint 2024 025 [facility] #[id number], [address] [place], [address], 16:07:02 Patient TargetsNo targets recorded. Patient InstructionsNo instructions recorded. Reason for Referral None Reported. Medical Equipment None Reported. Allergies Allergen ID Allergen Name Allergen Category Reaction Reaction Severity Criticality Documentation Date Start Date Code Code System Note Provider Name and Address Organization Details Recorded Time [facility] Not available Not available 04/28/202432457 5 RxNorm Not Available [facility] - production 5 15:29:00 79182 sulfameth oxazole medicatio n Not available Not available Not available 04/28/2024 62354 RxNorm Not Available [facility] - production 5 09:05:30 26127 Substance with sulfonami de structure and antibacte rial mechanism of action (substanc e) medicatio n Not available Not available Not available 02/24/2025 07750 8003 SNOMED Not Available [facility] - production 5 09:05:30 45280 succinylc holine Not available anaphylax is dyspnea Not available Not available high 02/24/20252012 02740 RxNorm Per patie nt, respi rator y depre ssion /SOB after extub ation after recei ving this med for sedat ion durin g a surge ry when she was 20 Not Available joceline - External Data Service - prod 5 15:44:39 59390 cefaclor medicatio n hives other Not available Not available Not available 02/24/20252012 2176 RxNorm Not Available [facility]oc[facility] - External Data Service - prod 5 15:45:09 45527 succinylc holine chloride medicatio n dyspnea other Not available Not available high 02/24/20252023 3565 RxNorm Per patie nt, respi rator y depre ssion /SOB after extub ation after recei ving this med for sedat ion durin g a surge ry when she was 20 Not Available joceline - External Data Service - prod 5 15:45:09 07900 sulfadiaz ine medicatio n Not available Not available Not available 03/01/2025 57237 RxNorm Not Available [facility]oc[facility] - External Data Service - prod 5 17:18:00 50623 penicilli n V potassium medicatio n Not available Not available Not available 03/01/202556546 5 RxNorm Not Available [facility] - prod 5 17:20:41 Vaccine product containin g only Clostridi um tetani antigen (medicina l product) medicatio n Not available Not available Not available 03/10/2025 64924 2003 SNOMED Not Available [facility] - production 5 15:50:10 94054 penicilli n V Not available Not available Not available Not available 03/24/20252020 7984 RxNorm Not Available [facility] - External Data Service - prod 5 10:38:27 7025 Product containin g penicilli n (product) medicatio n Not available Not available Not available 02/11/2024 38671 8001 SNOMED Not Available [facility] - production 4 03:34:22 7026 Bactrim medicatio n Not available Not available Not available 02/11/2024 67407 9 RxNorm Not Available [facility] 5 09:05:30 Medications Name Sig [...] % 14 /min 152.4 cm 98 [degF] 30821.8 g 154/84 mm[Hg] Not Available [facility] - production 5 16:01:26 Social History None [...] ICD10 Code Diagnosis IMO Codes Diagnosis Note [id number] Ondina Velazquez MD [facility] [address] [place] [address] 02/02/2025 16:01:19 02/03/2025 12:13:10 Bacterial conjunctivitis 797543706 H10.9 68072 w/ blephariti sAdvised to throw out any [...] Barba Member ID Guarantor Name 02/02/2025 1 [facility] - DOS ON OR AFTER 2022 - DUAL ELIGIBLE - GROUP HOME OPTIONS AND ONE CARE (MEDICARE REPLACEMENT/ADV ANTAGE - HMO) Rhona Gandara [id number] Rhona Gandara Notes Date Note Type Note [...] Hypothyroidism, Hypertension, OtherPMH Reviewed at 02/02/2025 - 14:25Allergies Reviewed at 02/02/2025 - 14:25Pain Assessment: Level 5 out of 10Comments: Other PMH: hyponatremia 70 y.o female complains of Eye Complaint Self-referring. Bileratal eye redness, itchiness, pain and discharge. Started with R eye on Saturday and then progressed to both eyes. Green grainy discharge. Denies vision changes, headache, sore throat, congestion. Denies fever/chills. No PRNs or eye drops utilized. Takes XDA35ln daily. Denies kidney issues. I provided information on the mobile health provider response time and advised the patient and/or caregiver to monitor reported signs and symptoms. I discussed the warning signs of when to seek emergency care. ...................... ...................... ...................... ...................... ...................... ...................... ......... Bicycle Designer Note From Bacilio Gonzalez: Patient alert and [...] with no edema noted good skin [place] [facility] [place] s [place] pharmacy. Red flags patient education discussed. Supportive care discussed, including warm compresses, handwashing and others. Patient demonstrates understanding of care and plan. ...................... ...................... ...................... ...................... ...................... ...................... ......... [facility] [place]ed: Ondina Velazquez ...................... ...................... ...................... ...................... ...................... ...................... ......... Disposition: Fulfilled SEGMD: As above. Patient denies any allergic rhinitis, rash, difficulty swallowing /sore throat, headache, nausea vomiting or diarrhea. She denies use of any new cosmetic products/eye make-up. Ondina Velazquez MD [address] [place] [address],[facility], [place], [address], [facility] 02/03/2025 01:17:35 OBGyn Episode No OBEpisode recorded.
--- OUTSIDE RECORDS SUMMARY | 2025-03-25 22:20 | XMS_ITS | Encounter Summary ---
Author Organization [facility] Address [address] [place] [address] Encounters * CPT with Medical [facility] at [place] on 2025-02-02 { reasonForRequest : Patient has infection in both eyes. , patientReports&q uot;: Conjunctivitis , denies :[ Sudden onset of dental pain, unable to manage own secretions , Nosebleed lasting longer than one hour; unable to stop bleeding", Throat swelling/difficult swallowing , Dental pain and fever, able to maintain secretions , Sinus infection , External Ear concerns ], chiefComplaints": Eye Complaint , pmh : COPD/Asthma, Gastroesophageal Reflux Disease (GERD), Hypothyroidism, Hypertension, Other , allergies : Penicillins, Bactrim, Ceclor, Sulfamethoxazole , otherAllergies :null, painAssessment : Level 5 out of 10 , visitOutcome : , additionalComments : OtherPMH: hyponatremia \n\n70 y.o female complains of Eye Complaint\n\nSelf-referring. Bileratal eye redness, itchiness, pain and discharge. Started with R eye on Saturday and then progressed to both eyes. Green grainy discharge. Denies vision changes, headache, sore throat, congestion. Denies fever/chills. No PRNs or eye drops utilized. Takes HLO28le daily. Denies kidney issues. \n\nI provided information on the mobile health provider response time and advised the patient and/or caregiver to monitor reported signs and symptoms. I discussed the warning signs of when to seek emergency care. } Patient alert and oriented complains of bilateral eye itch and burning sensation times five days. Patient also reports thick discharge from both eyes. Patient denies visual changes, darkness fever, chills, nasal, congestion, increased cough, difficulty pain, weakness, dizziness or any other pain orcomplaint. Patient reports history of same with good relief, using anabiotic ointment. Patient pink warm dry eyes as pictured in documents, lung sounds cleared negative increased work ofbreathing positive full sentences abdomen soft, nontender extremities unremarkable with no edema noted good skin [place] will prescribe medication to patient???s local pharmacy. Red flags patient education discussed.Supportive care discussed, including warm compresses, handwashing and others. Patient demonstrates understanding of care and plan. Written by Medical [facility] on 2025-02-02
--- OUTSIDE RECORDS SUMMARY | 2025-03-25 22:20 | XMS_ITS | Patient Health Record ---
Author Organization [facility] Address [address] [place] [address] Care Team Providers Care Hoof Trimmer Name Role Phone HaynesNicky Primary Care Provider [...] 1 tablet as needed Orally Active Nystatin 020738 UNIT/GM 1 application Externally Twice a day; [...] foot (Q66.222) Active confirmed Problem Lower limb lengt h difference (M21.70) Active confirmed Problem Polyneuropathy (68580041) Other polyneuropathy (G62.89) Active confirmed Plan Of Treatment Pending Test Test Name Order Date Hepatic Function Panel (7) 05/02/2020 Insurance Providers Payer Name Payer Address Payer Phone Subscriber Number Group Number Insured Name Patient Relationship to Insured Coverage Start Date Coverage End Date [facility] [address] [facility] [place] [phone] [facility] [id number] Rhona Gandara Self - patient is the [...]
--- OUTSIDE RECORDS SUMMARY | 2025-03-25 22:20 | XMS_ITS | Continuity of Care Document ---
Author Organization [place] - [facility], [facility] Address [address] [place] [address] Care Team Providers Care Lockstitch Back Maker Name Role Phone LESA MONZON Primary Care Provider [phone] Assessment Encounter Date Assessment Date Assessment LastModified by Organization Details LastModified Time 01/08/2025 01/08/2025 70 year old female, with a history of chronic migraine, presents for evaluation of chronic sinusitis. CT head without contrast performed [place]05[place]25 [place] [facility] [place] showed no parenchymal hemorrhage, midline shift, or [...] contr ast No observ ation record ed. [email or web address] Not Available 12/15 11:03:54 Result Notes None recorded. Problems Name Problem SNOMED Code Status Onset Date Resolution Date Notes Provider Name and Address Organization Details Recorded Time Difficult y speaking Active 2014 Symptoms involving head and neck: Hoarsenes s; Note: Date Diagnosed : 08/30/2014 2:05 PM (784.42) Not Available [facility] 4 02:32:49 Harmful pattern of use of alcohol 60397982 Active 2018 Alcohol use disorder, mild; Note: Date Diagnosed : 08/11/2018 4:23 PM (F10.10) Not Available [facility] 4 02:32:48 Impacted cerumen of bilateral ears 54231722372 49013 Active 2018 Impacted cerumen, bilateral ; Note: Date Diagnosed : 08/11/2018 4:23 PM (H61.23) Not Available [facility] 4 02:32:50 Dysphonia 61731017 Active 2018 Hoarsenes s; Note: Date Diagnosed : 08/11/2018 4:23 PM (R49.0) Not Available [facility] 4 02:32:41 Tobacco dependenc e caused by cigarette s 93886920008 574948 Active 2018 Nicotine dependenc e, cigarette s, uncomplic ated; Note: Date Diagnosed : 08/11/2018 4:23 PM (F17.210) Not Available [facility] 4 02:32:39 Edema of larynx 14159312 Active 2018 Edema of larynx; Note: Date Diagnosed : 08/11/2018 4:23 PM (J38.4) Not Available [facility] 4 02:32:51 Chronic rhinitis 80070621 Active 2018 Rhinitis, chronic; Note: Date Diagnosed : 08/30/2014 2:05 PM (472.0) ; Start Date : 5 Chronic rhinitis; Note: Date Diagnosed : 08/11/2018 4:23 PM (J31.0) Not Available [facility] 4 02:32:46 Dysphagia 53830163 Active 2018 Dysphagia , unspecifi ed; Note: Date Diagnosed : 08/11/2018 4:23 PM (R13.10) Not Available [facility] 4 02:32:46 Bilateral tinnitus 53139420093 02 Active 2021 Tinnitus, bilateral ; Note: Date Diagnosed : 03/23/2022 10:21 AM (H93.13) Not Available [facility] 4 02:32:44 Migraine without aura, not refractor y 183736575 Active 2021 Migraine without aura, not intractab le, without status migrainos us; Note: Date Diagnosed : 03/23/2022 12:11 PM (G43.009) Not Available [facility] 4 02:32:42 Dizziness and giddiness 366068657 Active 2021 Dizziness and giddiness ; Note: Date Diagnosed : 03/23/2022 10:21 AM (R42) Not Available [facility] 4 02:32:40 Sensorine ural hearing loss 49292068 Active 2021 Sensorine ural hearing loss, unilatera l, left ear, with unrestric shane hearing on the contralat eral side; Note: Date Diagnosed : 03/23/2022 10:21 AM (H90.42) Not Available [facility] 4 02:33:00 Sensorine ural hearing loss of bilateral ears 175382302 Active 2022 Sensorine ural hearing loss, bilateral ; Note: Date Diagnosed : 12/27/2022 11:59 AM (H90.3) Not Available [facility] 4 02:32:43 Abnormal sensation 446743975 [facility] [address], [place], [place], [address] , [facility] - [facility] 5 17:09:11 Migraine 44954062 Active 2024 [address], [place], [place], [address] , [facility] - [facility] 5 16:05:47 Allergic rhinitis 62251717 [facility] [address], [place], [address] , [facility] 5 16:06:08 Problem Notes None recorded. Medical Equipment None Reported. Allergies Allergen ID Allergen Name Allergen Category Reaction Reaction Severity Criticality Documentation Date Start Date Code Code System Note Provider Name and Address Organization Details Recorded Time 02694 Ceclor medicatio n other Not available Not available 08/27/202352262 5 RxNorm React ion: unkno wn, unspe cifie d;; Not Available [facility] 4 00:56:50 26906 penicilli n V potassium medicatio n other Not available Not available 08/27/202310570 5 RxNorm React ion: unkno wn, unspe cifie d;; Not Available [facility] 4 00:56:55 80832 Substance with sulfonami de structure and antibacte rial mechanism of action (substanc e) medicatio n other Not available Not available 08/27/2023 31363 8003 SNOMED React ion: unkno wn, unspe cifie d;; Not Available [facility] 4 00:56:56 Medications Name Sig Start Date [...] 325 mg tablet active Medicati on ID: 108380 B rand Name: acetamin ophen Se nd Method: E-Prescr ibed Sub s Allowed: subs OK Medic ationGen ericName : acetamin ophen Not Available Not Available Not Available prednison e 10 mg tablet PLEASE SEE ATTACHED FOR DETAILED DIRECTIO NS active Not Available Not Available No t Available nitrofura ntoin macrocrys inocencio 50 mg capsule 01/25 completed Medicati on ID: 653559 D uration Value: 30 Brand Name: nitrofur antoin macrocry stal Sen d Method: E-Prescr ibed Sub s Allowed: subs OK Speci al Instruct ion: TK 1 C PO QD Medic ationGen ericName : nitrofur antoin macrocry stal Not Available Not Available Not Available oxybutyni n chloride ER 15 mg tablet,ex tended release 24 hr 01/25 completed Medicati on ID: 670710 D uration Value: 30 Brand Name: oxybutyn [...] %) eye drops active Medicati on ID: 358230 B rand Name: ketotife n fumarate Send [...] 15 mg tablet active Medicati on ID: 229076 B rand Name: meloxica m Send Method: [...] elayed release 01/25 completed Medicati on ID: 24624 Du ration Value: 30 Brand Name: Nexium [...] mg tablet 03/23 completed Medicati on ID: 388952 B rand Name: tramadol Send Method: E-Prescr [...] in a packet active Medicati on ID: 485604 B rand Name: Cholesty ramine Light Se [...] mg tablet 03/23 completed Medicati on ID: 05654 Du ration Value: 30 Brand Name: citalopr [...] mg tablet 03/23 completed Medicati on ID: 599237 B rand Name: baclofen Send Method: E-Prescr [...] iron) tablet 03/23 completed Medicati on ID: 159991 D uration Value: 30 Brand Name: ferrous sulfate Send Method: E-Prescr ibed Sub s Allowed: subs OK Medic ationGen ericName : ferrous sulfate Not Available Not Available Not Available ropinirol e 0.5 mg tablet active Medicati on ID: 904536 B rand Name: ropiniro le Send Method: [...] mg tablet 03/23 completed Medicati on ID: 46557 Du ration Value: 20 Brand Name: benztrop [...] mg tablet 03/23 completed Medicati on ID: 597159 D uration Value: 15 Brand Name: alprazol am Send Method: E-Prescr ibed Sub s Allowed: subs OK Medic ationGen ericName : alprazol am Not Available Not Available Not Available ibuprofen 600 mg tablet PLEASE SEE ATTACHED FOR DETAILED DIRECTIO NS active Not Available Not Available No t Available polyethyl nilton glycol 3350 17 gram/dose oral powder 03/23 completed Medicati on ID: 945374 D uration Value: 30 Brand Name: polyethy [...] mg tablet 01/25 completed Medicati on ID: 50675 Du ration Value: 30 Brand Name: oxybutyn [...] mg tablet 03/23 completed Medicati on ID: 845630 B rand Name: amitript sergio Se nd [...] xtended release 03/23 completed Medicati on ID: 663577 D uration Value: 90 Brand Name: Cartia XT Send Method: E-Prescr ibed Sub s Allowed: subs OK [facility] : Cartia XT Not Available Not Available Not Available cholecalc iferol (vitamin D3) 25 mcg (1,000 unit) capsule 03/23 completed Medicati on ID: 113637 D uration Value: 30 Brand Name: cholecal [...] 20 mg tablet active Medicati on ID: 333358 B rand Name: aripipra zole Sen d [...] 100 mg capsule active Medicati on ID: 063695 B rand Name: nitrofur antoin monohyd/ m-cryst Send Method: E-Prescr ibed Sub s Allowed: subs OK Medic ationGen ericName : nitrofur antoin monohyd/ m-cryst Not Available Not Available Not Available duloxetin e 30 mg capsule,d elayed release active Medicati on ID: 709103 B rand Name: duloxeti ne Send Method: E-Prescr ibed Sub s Allowed: subs OK Medic ationGen ericName : duloxeti ne Not Available Not Available Not Available duloxetin e 60 mg capsule,d elayed release TAKE 1 CAPSULE BY MOUTH TWICE A DAY active Not Available Not Available No t Available sodium chloride 03/23 completed Medicati on ID: 444864 B rand Name: sodium chloride Send Method: E-Prescr ibed Sub s Allowed: subs OK [facility] : sodium chloride Not Available Not Available Not Available sodium chloride 1,000 mg soluble tablet TAKE 1 TABLET BY MOUTH THREE TIMES A DAY active Not Available Not Available No t Available oxycodone 10 mg tablet 08/11 completed Medicati on ID: 24278 Du ration Value: 28 Brand Name: oxycodon e Send Method: E-Prescr ibed Sub s Allowed: subs OK Speci al Instruct ion: TK 1 T PO TID Medi cationGe nericNam e: oxycodon e Not Available Not Available Not Available desvenlaf axine succinate ER 100 mg tablet,ex tended release 24 hr 03/23 completed Medicati on ID: 366414 B rand Name: desvenla faxine succinat e [...] mcg tablet 03/23 completed Medicati on ID: 361397 B rand Name: Gisselle- Benedicto Send Method: [...] Address Organization Details Last Updated DateTime 01/08/2025 96045.01 g 23 kg/m2 160.02 cm Corinna Howard [place] - [facility] 01/08/2025 13:23:38 Social History None recorded. Functional Status None recorded. Mental Status None recorded. Family History Nothing Reported. Medical History No medical history recorded. Gynecological HistoryNo gynecological history recorded. Obstetrics History GPAL:G 0 P 0 0 0 0 Past Encounters Encounter ID Performer Location Encounter Start Date Encounter Closed Date Diagnosis/Indication Diagnosis SNOMED-CT Code Diagnosis ICD10 Code Diagnosis IMO Codes Diagnosis Note [id number] [address] [facility] [address] [place] [address] 01/08/2025 13:04:16 01/08/2025 14:52:42 Abnormal sensation 328168641 R44.8 [id number] Migraine 79962613 G43.80 9 1718243 Allergic rhinitis 562328 04 J30.89 5171270 Health Concerns Section Related Observation LastModified by Organization Detai ls LastModified Time None Recorded Concern Status LastModified by Organization Details LastModified Time None Recorded Payers Encounter Date Sequence Insurance Name Policy Number Policy Barba Covered Member ID Barba Member ID Guarantor Name 01/08/2025 1 [facility] - DOS ON OR AFTER 2022 - [facility] OPTIONS (MEDICARE REPLACEMENT/ADV ANTAGE - HMO) Rhona Gandara [id number] Rhona Gandara Notes Date Note Type Note Provider Name and Address Organization Details Recorded Time 01/08/2025 text/html ROS as noted in the HPI 70 year old female, with a history of chronic migraine, presents for evaluation of chronic sinusitis. Patient was recently seen at [facility] on 01/05/25 for head trauma following [...] and purulent nasal discharge. RICKY MARX MD [address] [place] [address], [phone], [facility] - [facility] 01/10/2025 20:37:19 OBGyn Episode No OBEpisode recorded.
--- OUTSIDE RECORDS SUMMARY | 2025-03-25 22:20 | XMS_ITS | Continuity of Care Document ---
Author Name [facility], Medical Address [address] [place] [address] Organization Unknown Address [address] [place] [address] Medications No known medications Problems No known problems
--- OUTSIDE RECORDS SUMMARY | 2025-03-25 22:21 | XMS_ITS | Encounter Summary ---
Author Organization [facility] Address [address] [place] [address] Encounters * CPT with Medical [facility] at [facility] on 2025-03-01 { reasonForRequest : Person has conjunctivitis in both eyes, and a wound/ infection in her foot, was in Hospital yesterday, and they did not tell her how to fix her foot, but confirmedthe infection is not to the bone. , patientReports : Rash , denies":[ Leos Flash, circumferential leos , Leos reported with black tissue to the area , Open skin area after a fall with uncontrolled bleeding , Abscess/infect ion with streaking noted, presence of fever or without , Fever and chills noted in setting of wound , Bites -bugs, spider , Abscess ], chiefComplaints :&qu ot;Eye Complaint, Wound Care , pmh : COPD/Asthma, Gastroesophageal Reflux Diseas e (GERD), Hypothyroidism, Hypertension, Substance Use Disorder , allergies : Pen icillins, Ceclor, Sulfa (Sulfonamide Antibiotics) , otherAllergies :null, painAs sessment : , visitOutcome : , additionalComments :"70 y.o female complains of Eye Complaint, Wound Care\n\nPatient has concerns about conjunctivitis. She reports that both eyes are red, itchy, gritty, and have had discharge since last week. She went to the ER on and reported she does not have an eye infection, but she feels the symptomsare worsening. She denies any fever or chills\nShe also has a wound on the right foot, between the big toe. She had a fungal infection, but she feels it is now a wound. She was given ointment, but she does not feel it is working. She also stated that they were sending doxy but she has not picked itup. \nI provided information on the mobile health provider response time and advised the patient and/or caregiver to monitor reported signs and symptoms. I discussed the warning signs of when to seekemergency care. } 70 year-old female with multiple complaints after discharge yesterday. Patient states she was in for hyponatremia or hypovolemia but unsure. But symptoms resolved and they sent her home with a home care plan. Her main complaint is she woke up with crusty gritty eyes and they are still itchy and shehad conjunctivitis sometime in January with erythromycin ointment [...] which will be delivered tomorrow by her [facility]. Patient???s [facility] is currently delivering her doxycycline sometime today so advised her to call [facility] and just see if they can add [...] but nurse was coming tomorrow to look atit again. ORAL_MEDICATION, WOUND_CARE Written by Medical [facility] on 2025-03-01
--- OUTSIDE RECORDS SUMMARY | 2025-03-25 22:21 | XMS_ITS | Data Portability ---
Author Organization [place] - [facility], Allergy Address [address] [address] Care Team Providers Care Mission Coordinator Name Role Phone NICOLÁS LESA Primary Care Provider [phone] Assessment Encounter Date Assessment Date Assessment LastModified by Organization Details LastModified Time 01/08/2025 01/08/2025 70 year old female, with a history of chronic migraine, presents for evaluation of chronic sinusitis. CT head without contrast performed 01/05/25 at [facility] showed no parenchymal hemorrhage, midline shift, or [...] contr ast No observ ation record ed. [email or web address] Not Available 12/15 11:03:54 Result Notes None recorded. Problems Name Problem SNOMED Code Status Onset Date Resolution Date Notes Provider Name and Address Organization Details Recorded Time Difficult y speaking Active 2014 Symptoms involving head and neck: Hoarsenes s; Note: Date Diagnosed : 08/30/2014 2:05 PM (784.42) Not Available [facility] 4 02:32:49 Harmful pattern of use of alcohol 11184385 Active 2018 Alcohol use disorder, mild; Note: Date Diagnosed : 08/11/2018 4:23 PM (F10.10) Not Available [facility] 4 02:32:48 Impacted cerumen of bilateral ears 19301813163 72907 Active 2018 Impacted cerumen, bilateral ; Note: Date Diagnosed : 08/11/2018 4:23 PM (H61.23) Not Available [facility] 4 02:32:50 Dysphonia 45496607 Active 2018 Hoarsenes s; Note: Date Diagnosed : 08/11/2018 4:23 PM (R49.0) Not Available [facility] 4 02:32:41 Tobacco dependenc e caused by cigarette s 69354995026 264845 Active 2018 Nicotine dependenc e, cigarette s, uncomplic ated; Note: Date Diagnosed : 08/11/2018 4:23 PM (F17.210) Not Available [facility] 4 02:32:39 Edema of larynx 53203062 Active 2018 Edema of larynx; Note: Date Diagnosed : 08/11/2018 4:23 PM (J38.4) Not Available [facility] 4 02:32:51 Chronic rhinitis 48688754 Active 2018 Rhinitis, chronic; Note: Date Diagnosed : 08/30/2014 2:05 PM (472.0) ; Start Date : 5 Chronic rhinitis; Note: Date Diagnosed : 08/11/2018 4:23 PM (J31.0) Not Available [facility] 4 02:32:46 Dysphagia 61706480 Active 2018 Dysphagia , unspecifi ed; Note: Date Diagnosed : 08/11/2018 4:23 PM (R13.10) Not Available [facility] 4 02:32:46 Bilateral tinnitus 59051997842 02 Active 2021 Tinnitus, bilateral ; Note: Date Diagnosed : 03/23/2022 10:21 AM (H93.13) Not Available [facility] 4 02:32:44 Migraine without aura, not refractor y 292880260 Active 2021 Migraine without aura, not intractab le, without status migrainos us; Note: Date Diagnosed : 03/23/2022 12:11 PM (G43.009) Not Available [facility] 4 02:32:42 Dizziness and giddiness 573428366 Active 2021 Dizziness and giddiness ; Note: Date Diagnosed : 03/23/2022 10:21 AM (R42) Not Available [facility] 4 02:32:40 Sensorine ural hearing loss 05730101 Active 2021 Sensorine ural hearing loss, unilatera l, left ear, with unrestric shane hearing on the contralat eral side; Note: Date Diagnosed : 03/23/2022 10:21 AM (H90.42) Not Available [facility] 4 02:33:00 Sensorine ural hearing loss of bilateral ears 127421519 Active 2022 Sensorine ural hearing loss, bilateral ; Note: Date Diagnosed : 12/27/2022 11:59 AM (H90.3) Not Available [facility] 4 02:32:43 Abnormal sensation 106004591 Active 2024 MILTON AVALOS [address] [place],[address], [place], [address] , [facility] 5 17:09:11 Migraine 76744301 Active 2024 MILTON AVALOS [address] [place],[facility] [address], [place], [address] , [facility] 5 16:05:47 Allergic rhinitis 12653091 [facility] 2024 MILTON AVALOS [address] [place],[address], [facility] [place], [address] , [facility] 5 16:06:08 Problem Notes None recorded. Medical Equipment None Reported. Allergies Allergen ID Allergen Name Allergen Category Reaction Reaction Severity Criticality Documentation Date Start Date Code Code System Note Provider Name and Address Organization Details Recorded Time 25002 Ceclor medicatio n other Not available Not available 08/27/202372874 5 RxNorm React ion: unkno wn, unspe cifie d;; Not Available [facility] 4 00:56:50 45591 penicilli n V potassium medicatio n other Not available Not available 08/27/202339821 5 RxNorm React ion: unkno wn, unspe cifie d;; Not Available [facility] 4 00:56:55 49046 Substance with sulfonami de structure and antibacte rial mechanism of action (substanc e) medicatio n other Not available Not available 08/27/2023 31327 8003 SNOMED React ion: unkno wn, unspe cifie d;; Not Available [facility] 4 00:56:56 Medications Name Sig Start [...] 325 mg tablet active Medicati on ID: [id number] B rand Name: acetamin ophen Se nd Method: E-Prescr ibed Sub s Allowed: subs OK Medic ationGen ericName : acetamin ophen Not Available Not Available Not Available prednison e 10 mg tablet PLEASE SEE ATTACHED FOR DETAILED DIRECTIO NS active Not Available Not Available No t Available nitrofura ntoin macrocrys inocencio 50 mg capsule 01/25 completed Medicati on ID: [id number] D uration Value: 30 Brand Name: nitrofur antoin macrocry stal Sen d Method: E-Prescr ibed Sub s Allowed: subs OK Speci al Instruct ion: TK 1 C PO QD Medic ationGen ericName : nitrofur antoin macrocry stal Not Available Not Available Not Available oxybutyni n chloride ER 15 mg tablet,ex tended release 24 hr 01/25 completed Medicati on ID: [id number] D uration Value: 30 Brand Name: oxybutyn [...] %) eye drops active Medicati on ID: 470434 B rand Name: ketotife n fumarate Send [...] 15 mg tablet active Medicati on ID: 700578 B rand Name: meloxica m Send Method: [...] elayed release 01/25 completed Medicati on ID: [id number] Du ration Value: 30 Brand Name: Nexium [...] mg tablet 03/23 completed Medicati on ID: 155803 B rand Name: tramadol Send Method: E-Prescr [...] in a packet active Medicati on ID: 957007 B rand Name: Cholesty ramine Light Se nd Method: E-Prescr ibed Sub s Allowed: subs OK [facility] Cholesty ramine Light Not Available [...] mg tablet 03/23 completed Medicati on ID: 11395 Du ration Value: 30 Brand Name: citalopr [...] mg tablet 03/23 completed Medicati on ID: [id number] B rand Name: baclofen Send Method: E-Prescr ibed Sub s Allowed: subs OK [facility] : baclofen Not Available Not Available [...] iron) tablet 03/23 completed Medicati on ID: 719118 D uration Value: 30 Brand Name: ferrous sulfate Send Method: E-Prescr ibed Sub s Allowed: subs OK Medic ationGen ericName : ferrous sulfate Not Available Not Available Not Available ropinirol e 0.5 mg tablet active Medicati on ID: 631108 B rand Name: ropiniro le Send Method: [...] mg tablet 03/23 completed Medicati on ID: [id number] Du ration Value: 20 Brand Name: benztrop [...] mg tablet 03/23 completed Medicati on ID: 725095 D uration Value: 15 Brand Name: alprazol am Send Method: E-Prescr ibed Sub s Allowed: subs OK Medic ationGen ericName : alprazol am Not Available Not Available Not Available ibuprofen 600 mg tablet PLEASE SEE ATTACHED FOR DETAILED DIRECTIO NS active Not Available Not Available No t Available polyethyl nilton glycol 3350 17 gram/dose oral powder 03/23 completed Medicati on ID: 937957 D uration Value: 30 Brand Name: polyethy [...] mg tablet 01/25 completed Medicati on ID: 69418 Du ration Value: 30 Brand Name: oxybutyn [...] mg tablet 03/23 completed Medicati on ID: 362140 B rand Name: amitript yline Se nd [...] xtended release 03/23 completed Medicati on ID: 627524 D uration Value: 90 Brand Name: Cartia XT Send Method: E-Prescr ibed Sub s Allowed: subs OK Medic ationGen ericName : Cartia XT Not Available Not Available Not Available cholecalc iferol (vitamin D3) 25 mcg (1,000 unit) capsule 03/23 completed Medicati on ID: 215644 D uration Value: 30 Brand Name: cholecal [...] 20 mg tablet active Medicati on ID: 342623 B rand Name: aripipra zole Sen d [...] 100 mg capsule active Medicati on ID: 938333 B rand Name: nitrofur antoin monohyd/ m-cryst Send Method: E-Prescr ibed Sub s Allowed: subs OK Medic ationGen ericName : nitrofur antoin monohyd/ m-cryst Not Available Not Available Not Available duloxetin e 30 mg capsule,d elayed release active Medicati on ID: 087717 B rand Name: duloxeti ne Send Method: E-Prescr ibed Sub s Allowed: subs OK Medic ationGen ericName : duloxeti ne Not Available Not Available Not Available duloxetin e 60 mg capsule,d elayed release TAKE 1 CAPSULE BY MOUTH TWICE A DAY active Not Available Not Available No t Available sodium chloride 03/23 completed Medicati on ID: 511297 B rand Name: sodium chloride Send Method: E-Prescr ibed Sub s Allowed: subs OK Medic ationGen ericName : sodium chloride Not Available Not Available Not Available sodium chloride 1,000 mg soluble tablet TAKE 1 TABLET BY MOUTH THREE TIMES A DAY active Not Available Not Available No t Available oxycodone 10 mg tablet 08/11 completed Medicati on ID: 14363 Du ration Value: 28 Brand Name: oxycodon e Send Method: E-Prescr ibed Sub s Allowed: subs OK Speci al Instruct ion: TK 1 T PO TID Medi cationGe nericNam e: oxycodon e Not Available Not Available Not Available desvenlaf axine succinate ER 100 mg tablet,ex tended release 24 hr 03/23 completed Medicati on ID: 992819 B rand Name: desvenla faxine succinat e [...] mcg tablet 03/23 completed Medicati on ID: [id number] B rand Name: Eugenio Diane Send Method: [...] Address Organization Details Last Updated DateTime 01/08/2025 40802.01 g 23 kg/m2 160.02 cm Corinna Howard [place] - [facility] 01/08/2025 13:23:38 Social History None recorded. Functional Status None recorded. Mental Status None recorded. Family History Nothing Reported. Medical History No medical history recorded. Gynecological HistoryNo gynecological history recorded. Obstetrics History GPAL:G 0 P 0 0 0 0 Past Encounters Encounter ID Performer Location Encounter Start Date Encounter Closed Date Diagnosis/Indication Diagnosis SNOMED-CT Code Diagnosis ICD10 Code Diagnosis IMO Codes Diagnosis Note [id number] MILTON AVALOS [facility] [address] [address] 01/08/2025 13:04:16 01/08/2025 14:52:42 Abnormal sensation 846413555 R44.8 69394063 Migraine 38620161 G43.80 9 0445237 Allergic rhinitis 038129 04 J30.89 6332049 Health Concerns Section Related Observation LastModified by Organization Detai ls LastModified Time None Recorded Concern Status LastModified by Organization Details LastModified Time None Recorded Advance Directives Directive None Recorded Payers Insurance Date Sequence Insurance Name Policy Number Policy Barba Covered Member ID Barba Member ID Guarantor Name 12/28/2024 1 [facility] [employer] - DOS ON OR AFTER 2022 - ONE CARE (MEDICARE REPLACEMENT/ADV ANTAGE - HMO) Rhona Gandara [id number] Rhona Gandara 01/08/2025 1 [facility] [employer] - DOS ON OR AFTER 2022 - SNF OPTIONS (MEDICARE REPLACEMENT/ADV ANTAGE - HMO) Rhona Gandara [id number] Rhona Gandara 12/28/2024 2 [facility] [facility] [place] (MEDICARE REPLACEMENT/ADV ANTAGE - HMO) Rhona Gandara [id number] Rhona Gandara 12/28/2024 1 [facility] [employer] - DOS ON OR AFTER 2022 - MEDICARE [place]AGE [place]MEDICARE REPLACEMENT/ADV ANTAGE - PPO) Rhona Gandara [id number] Rhona Gandara Notes Date Note Type Note Provider Name and Address Organization Details Recorded Time 01/08/2025 text/html ROS as noted in the HPI 70 year old female, with a history of chronic migraine, presents for evaluation of chronic sinusitis. Patient was recently seen at [facility] on 01/05/25 for head trauma following [...] and purulent nasal discharge. RICKY MARX MD [address] [place] [address], [phone], [facility] - [facility] 01/10/2025 20:37:19 OBGyn Episode No OBEpisode recorded.
--- OUTSIDE RECORDS SUMMARY | 2025-03-25 22:21 | XMS_ITS | Continuity of Care Document ---
Author Name [facility], Medical Address [address] [place] [address] Organization Unknown Address [address] [place] [address] Medications No known medications Problems No known problems
--- OUTSIDE RECORDS SUMMARY | 2025-03-25 22:21 | XMS_ITS | Data Portability ---
Author Organization [employer], [facility] Address [address] [place] [address] Care Team Providers Care Wellness Instructor Name Role Phone HIM [facility] OTHER [facility] Primary Care Provider Assessment Encounter Date Assessment Date Assessment LastModified by Organization Details LastModified Time 02/02/2025 02/02/2025 I provided real -time medical direction via phone for this encounter, and was available for additional phone based assistance as needed. I have reviewed and agree with the Assessment and Plan as documented by the Historical Site Guide. We discussed the diagnostic uncertainty of home [...] to call 911- verbalized understanding of instruction [email or web address] Not available 02/02/2025 16:12:15 02/24/2025 02/24/2025 I provided real -time medical direction via phone for this encounter and was available for additional phone-based assistance as needed. I have reviewed and agree with the Assessment and Plan as documented by the Historical Site Guide. Patient given the opportunity to ask questions. Our service contacted for an assessment of: Viral URI symptoms As per above, patient with approximately several days of viral URI symptoms. Denies fever or chills. Denies chest pain, shortness of breath, dyspnea on exertion. Positive nasal congestion and dry cough. Positive sick contacts. Per diesel engine i pipe fitter on the scene, vital signs are stable and patient is afebrile. No wheezing heard on exam. COVID and Flu are both negative. No increased work of breathing and no distress. Impression: Common cold and viral URI Plan: Continue with [id number] medications to control symptoms. Red flags discussed [...] in the field was performed by my diesel engine i pipe fitter colleague, as noted above, I provided real-time [...] assessment and plan as documented by the diesel engine i pipe fitter. I provided real-time medical direction for this encounter and was immediately available to provide additional phone-based assistance as needed. History as noted in EMR and by diesel engine i pipe fitter. I would add / emphasize: Patient seen [...] difficulties obtaining access to the property by diesel engine i pipe fitter 911 was activated and forced entry into patient's residence after which patient was noted to be alert oriented and able to provide informed refusal of transport which was advised by diesel engine i pipe fitter and by fire EMS. Patient noted to be otherwise ambulatory without assistance without physical exam evidence of obvious decompensated infection on exam. Advised ongoing use of oral and topical antibiotics close outpatient follow-up, and red flag symptoms that should prompt a call to 911. [email or web address] Not available 03/07/2025 13:45:04 03/10/2025 03/10/2025 Ms. Gandara is a 70 [...] or acute angle glaucoma. Patient transferred to [facility] in [place] for ER eval. Signed out at 7:17pm. I provided real -time medical direction via phone for this encounter, and was available for additional phone based assistance as needed. I have reviewed and agree with the Assessment and Plan as documented by the Historical Site Guide. We discussed the diagnostic uncertainty of home [...] recorded. Lab glucose, fingerstick , blood 2024 [facility], [address] [place] [address], [id number] 17:49:15 rapid SARS CoV 2 Ag, QL IA, respiratory specimen 2024 [facility], [address] [place] [address], [id number] 12:29:40 rapid flu (A+B) 2024 [facility], [address] [place] [address], [id number] 12:29:41 Referral None recorded. Procedures None recorded. Surgeries None recorded. Imaging None recorded. Medication Orders erythromyci n 5 mg/gram (0.5 %) eye ointment 2024 [id number], [address] [place], [address], 14:41:26 neomycin 3.5 mg/g-polymy cami B 10,000 unit/g-dexa meth 0.1 % eye oint 2024 [facility][id number], [address] [place], [address], 16:07:02 Patient TargetsNo targets recorded. Patient InstructionsNo [...] Name and Address Organization Details Recorded Time 99719 Ceclor medicatio n Not available Not available Not available 04/28/202426882 5 RxNorm Not Available [employer] - production 5 15:29:00 74075 sulfameth oxazole medicatio n Not available Not available Not available 04/28/2024 [address] [facility] 09:05:30 16185 Substance with sulfonami de structure and antibacte rial mechanism of action (substanc e) medicatio n Not available Not available Not available 02/24/2025 [address] [facility] 5 09:05:30 86729 succinylc holine Not available anaphylax is dyspnea Not available Not available high 02/24/20252012 17582 RxNorm Per patie nt, respi rator y depre ssion /SOB after extub ation after recei ving this med for sedat ion durin g a surge ry when she was 20 Not Available [employer] - prod 5 15:44:39 03981 cefaclor medicatio n hives other Not available Not available Not available 02/24/20252012 2176 RxNorm Not Available [employer] - prod 5 15:45:09 15470 succinylc holine chloride medicatio n dyspnea other Not available Not available high 02/24/20252023 3565 RxNorm Per patie nt, respi rator y depre ssion /SOB after extub ation after recei ving this med for sedat ion durin g a surge ry when she was 20 Not Available [employer] - prod 5 15:45:09 08936 sulfadiaz ine medicatio n Not available Not available Not available 03/01/2025 02251 RxNorm Not Available [employer] - [employer] - prod 5 17:18:00 19997 penicilli n V potassium medicatio n Not available Not available Not available 03/01/202579024 5 RxNorm Not Available joc[facility] [employer] - prod 5 17:20:41 26437 Vaccine product containin g only Clostridi um tetani antigen (medicina l product) medicatio n Not available Not available Not available 03/10/2025 02727 2003 SNOMED Not Available [facility] - production 5 15:50:10 73683 penicilli n V Not available Not available Not available Not available 03/24/20252020 7984 RxNorm Not Available joceline [employer] - prod 5 10:38:27 7025 Product containin g penicilli n (product) medicatio n Not available Not available Not available 02/11/2024 [address] [facility] 4 03:34:22 7026 Bactrim medicatio n Not available Not available Not available 02/11/2024 51885 [address] Rx[address] [facility] 5 09:05:30 Medications [...] % 14 /min 152.4 cm 98 [degF] 35333.8 g 154/84 mm[Hg] Not Available [employer] - production 5 16:01:26 Date Recorded Heart rate Body temperature Respiratory rate Oxygen saturation Systolic And Diastolic Provider Name and Address Organization Details Last Updated DateTime 5 78 /min 98.9 [degF] 18 /min 96 % 140/82 mm[Hg] Not Available [employer] - production 11:21:26 Date Recorded Respiratory rate Oxygen saturation Body temperature Body weight Heart rate Body height Systolic And Diastolic Provider Name and Address Organization Details Last Updated DateTime 18 /min 99 % 97.1 [degF] 15838.8 16 g 72 /min 152.4 cm 137/77 mm[Hg] Not Available [employer] - production 14:36:32 Date Recorded Body height Body weight Heart rate Oxygen saturation Respiratory rate Body temperature Systolic And Diastolic Provider Name and Address Organization Details Last Updated DateTime 147.32 cm 66624.0 8 g 96 /min 96 % 16 /min 96.5 [degF] 148/96 mm[Hg] Not Available [employer] 14:06:19 Date Recorded Body temperature Body weight Heart rate Oxygen saturation Respiratory rate Body height Systolic And Diastolic Provider Name and Address Organization Details Last Updated DateTime 99 [degF] 28746.8 56 g 98 /min 96 % 16 /min 152.4 cm 120/85 mm[Hg] Not Available [employer] 18:08:20 Social History None recorded. Functional Status [...] [id number] Mary Cosme MD Main - [facility] [address] [place] [phone] 04/26/2022 17:35:03 05/01/2022 11:23:41 Acute conjunctivitis 05181708 H10.30 [id number] Samra Whitley MD Main - [facility] [address] [place] [phone] 09/09/2022 17:58:41 09/10/2022 19:02:49 Nausea 864591703 R11.0 Evaluation in the field was performed by my diesel engine i pipe fitter colleague, as noted above, I provided real-time direction and supervisio n for this visit. 67yo F hx GERD on PPI p/w pre-dinner nausea x 3 days w/o abd pain, vomiting, diarrhea, chest pain/angin al equivalent s. DDx broad but no red flag sx to indicate urgent need for imaging/tx . Attempted to get LFTs however diesel engine i pipe fitter unable to obtain, not urgent given no [...] shortness of breath, cough, chest pain, fever. [id number] Radha Lopez MD Main - [facility] [address] [place] [phone] 10/30/2022 16:50:24 08/14/2024 12:51:56 Fall 3065676 W19.XXXA 67 yo s/p fall at home last night with headstrike and subsequent headache that appears to be worsening despite NSAID use. No confusion, lethargy or focal neurologic deficits. Not on anticoagul ation (per patient recollecti on). Discussed at length with diesel engine i pipe fitter and patient, agreed she should be evaluated for unwitnesse d head trauma and worsening BRAVO (raising c/f subdural). Called ambulance. Discussed with diesel engine i pipe fitter and patient, who agreed with plan. Warning signs/symp toms reviewed. [id number] Mukesh Stubbs MD Main - [facility] [address] [place] [phone] 04/28/2024 16:50:05 04/28/2024 22:27:41 Headache 78464945 R51.9 As noted, we were called to see this patient regarding concerns of headache. Evaluation in the field was performed by my diesel engine i pipe fitter colleague, as noted above, I provided real-time direction and supervisio n for this visit. The evaluation revealed an alert and oriented woman with no deficits per the diesel engine i pipe fitter. However, she reports new headache associated with neurologic al symptoms. Impression :headache, tremors, visual changes Plan:ED evaluation Dispositio n: ORWe discussed the situation and I recommende d referral to the emergency department . This was based on new onset headache with associated neurologic al symptoms. [id number] Michelle Mims MD [facility] - [address] [phone] 06/01/2024 17:05:04 06/02/2024 08:46:02 Upper respiratory infection 23998671 J06.9 [id number] Michelle Mims MD [facility] - [place] [id number] 0 07/08/2024 15:48:42 07/08/2024 19:44:39 Diarrhea 09172058 R19.7 [id number] Ilia Wilkins MD [facility] - [place] [id number] 0 07/30/2024 12:57:13 07/30/2024 14:45:28 Acute frontal sinusitis 40541165 J01.10 [id number] Michelle Mims MD [facility] - [place] [phone] 08/17/2024 17:23:15 08/17/2024 21:04:11 Fatigue 34348439 R53.83 [id number] Anxiety 95540924 F41.9 94481 [id number] Michelle Mims MD [facility] Medical [address] [phone] 10/29/2024 19:15:54 10/30/2024 16:24:07 Nausea and vomiting 40620517 R11.2 [id number] Walking disability 34172 8008 R26.2 72120511 [id number] Saira Camacho MD [facility] Medical [address] [phone] 12/19/2024 10:01:05 12/21/2024 15:55:55 Blood pressure taking 30691865 Z01.30 928299 As noted, we were called to see this patient regarding concerns of abnormal blood pressure. Evaluation in the field was performed by my diesel engine i pipe fitter colleague, as noted above, I provided real-time [...] changes to consciousn ess, chest pain, dyspnea. [id number] Ondina Velazquez MD [facility] ED Medical [address] [phone] 02/02/2025 16:01:19 02/03/2025 12:13:10 Bacterial conjunctivitis 917137414 H10.9 34754 w/ blephariti sAdvised to throw out any [...] he verbalized understand ing to the medic [id number] Mary Cosme MD [place] [phone] 02/24/2025 11:21:17 02/24/2025 13:01:47 Common cold 34748018 J00 69307 16036 Ilia Wilkins MD [place] [phone] 03/01/2025 14:36:25 03/01/2025 17:54:10 Bilateral acute conjunctivitis 4482625889 H10.33 [id number] 87714 Brayan Bates MD [place] [id number] 0 03/06/2025 12:44:15 03/08/2025 20:59:28 General examination of patient 916259361 Z00.00 [id number] 89627 TAWANNA BRUNO MD [place] [phone] 0 03/10/2025 18:00:35 03/10/2025 22:14:34 Blurring of visual image 620649282 H53.8 05693 Health Concerns Section Related Observation LastModified by Organization Detai ls LastModified Time None Recorded Concern Status LastModified by Organization Details LastModified Time None Recorded Advance Directives Directive None Recorded Payers Insurance Date Sequence Insurance Name Policy Number Policy Barba Covered Member ID Barba Member ID Guarantor Name 08/21/2023 1 [facility] - DOS PRIOR TO 2022 - DUAL ELIGIBLE (MEDICARE REPLACEMENT/ADV ANTAGE - HMO) Rhona Gandara [id number] Rhona Gandara 03/10/2025 1 [facility] - DOS ON OR AFTER 2022 - DUAL ELIGIBLE - [employer] AND ONE CARE (MEDICARE REPLACEMENT/ADV ANTAGE - HMO) Rhona Gandara [id number] Rhona Gandara Notes Date Note Type Note [...] Reviewed at 02/02/2025 - :Allergies Reviewed at 02/02/2025:Pain Assessment: Level 5 out of 10Comments: Other PMH: hyponatremia 70 y.o female complains of Eye Complaint Self-referring. Bileratal eye redness, itchiness, pain and discharge. Started with R eye on Saturday and then progressed to both eyes. Green grainy discharge. Denies vision changes, headache, sore throat, congestion. Denies fever/chills. No PRNs or eye drops utilized. Takes [id number] daily. Denies kidney issues. I provided information on the mobile health provider response time and advised the patient and/or caregiver to monitor reported signs and symptoms. I discussed the warning signs of when to seek emergency care. ...................... ...................... ...................... ...................... ...................... ...................... ......... Historical Site Guide Note From Bacilio Gonzalez: Patient alert and [...] with no edema noted good skin [place]. [facility] will prescribe medication to patient s local pharmacy. Red flags patient education discussed. Supportive care discussed, including warm compresses, handwashing and others. Patient demonstrates understanding of care and plan. ...................... ...................... ...................... ...................... ...................... ...................... ......... [facility] Consulted: Ondina Velazquez ...................... ...................... ...................... ...................... ...................... ...................... ......... Disposition: Fulfilled SEGMD: As above. Patient denies any allergic rhinitis, rash, difficulty swallowing /sore throat, headache, nausea vomiting or diarrhea. She denies use of any new cosmetic products/eye make-up. Ondina Velazquez MD [address] [facility],[address], [place], [address], [employer] 02/03/2025 01:17:35 02/24/2025 text/html CRC Nurse Triage Notes (Antoinette [...] signs of when to seek emergency care. Historical Site Guide Organization Information for [employer] Legal Name: [employer]. Address: [address] [place] [address], Podiatry Assistant: Garrett Nevarez MD CLIA No.: [id number] Historical Site Guide POC Test Results from [employer] Rapid influenza antigen (11:02:37) Flu: - Rapid COVID antigen (11:02:38) COVID: - ...................... ...................... ...................... ...................... ...................... ...................... ......... Historical Site Guide Note From [employer]: Dispatched to the [...] taken and results uploaded to Pts portal. [facility] consulted. Pt advised to call her PCP for out Pt X-ray or go to an urgent care for one. Red flags discussed. ALL times are approx. [facility] Lab Orders: rapid SARS CoV 2 Ag, QL IA, respiratory specimen: Performed rapid flu (A+B): Performed ...................... ...................... ...................... ...................... ...................... ...................... ......... [facility] Consulted: Mary Cosme ...................... ...................... ...................... ...................... ...................... ...................... ......... Disposition: Fulfilled Mary Cosme MD [address] [facility],[address], [place], [address], [employer] 02/24/2025 12:15:03 03/01/2025 text/html ROS as noted in the [facility] CRC Nurse Triage Notes (Jody Moe): [...] Substance Use Disorder PMH Reviewed at 03/01/2025 Allergies Reviewed at 03/01/2025:22 Comments: 70 y.o [...] ...................... ...................... ...................... ...................... ...................... ...................... ......... Historical Site Guide Note From Volodymyr Danielle: 70 year-old female [...] ...................... ...................... ...................... ...................... ...................... ...................... ......... [facility] Consulted: Ilia Wilkins ...................... ...................... ...................... ...................... ...................... ...................... ......... Disposition: Fulfilled ...................... ...................... ...................... ...................... ...................... ...................... ......... Historical Site Guide Note From Volodymyr Danielle:This has been updated by the diesel engine i pipe fitter, Volodymyr Danielle, at (03/01/2025 15:17:12) 70 year-old [...] which will be delivered tomorrow by her [facility]. Patient s [facility] is currently delivering her doxycycline sometime today so advised her to call [facility] and just see if they can [...] at it again. Ilia Wilkins MD [address] [facility],[address], [place], [address], [place] [employer] 03/01/2025 15:22:44 03/06/2025 text/html CRC Nurse Triage [...] signs of when to seek emergency care. Historical Site Guide Organization Information for Volodymyr Danielle Legal Name: [facility] Transportation Address: [address] [place] [address], [place]AK [address], Podiatry Assistant: London Gudino MD CLIA No.: [id number] Historical Site Guide POC Test Results from Volodymyr Danielle Blood Glucose Measurement (14:06:25) Blood Glucose: 104mg/dL ...................... ...................... ...................... ...................... ...................... ...................... ......... Historical Site Guide Note From Volodymyr Danielle: 70-year-old female, complaining [...] be able to fall asleep fairly quickly. [place] is easily to verbal. Denies any narcotic [...] fall asleep on toilet. Patient states her WELDER REPAIR was here this morning and her will be back at five and she absolutely does not want to go to the hospital. Patient going to take a nap and redress her wound herself on her foot. Patient again declined, offered to go get checked out at the [facility] room. Forced entry of doors was reported [...] ...................... ...................... ...................... ...................... ...................... ...................... ......... [facility] Consulted: Brayan Bates ...................... ...................... ...................... ...................... ...................... ...................... ......... Disposition: Fulfilled ...................... ...................... ...................... ...................... ...................... ...................... ......... Historical Site Guide Note From Volodymyr Danielle:This has been updated by the diesel engine i pipe fitter, Volodymyr Danielle, at (03/06/2025 14:28:50 ET) 70-year-old [...] fall asleep on toilet. Patient states her WELDER REPAIR was here this morning and her will be back at five and she absolutely does not want to go to the hospital. Patient going to take a nap and redress her wound herself on her foot. Patient again declined, offered to go get checked out at the [facility] room. Forced entry of doors was reported [...] for a visit Brayan Bates MD [address] [facility],[address], [place], [address], [facility] - [email or web address] 03/07/2025 13:45:13 03/10/2025 text/html ROS as noted in the HPI [...] Substance Use DisorderPMH Reviewed at 03/10/2025 - 17:55 (ET)Allergies Reviewed at 03/10/2025 - 17:55 (ET)Comments: 70 y.o female complains of Eye Complaint Pt has conjunctivitis in both eyes. She was seen on 03/01 by fausto. She was given erythromycin ointment. She used [...] ...................... ...................... ...................... ...................... ...................... ...................... ......... Historical Site Guide Note From Janak Cuello: [facility] makes pt contact a 70 YO F cc of conjunctivitis that has not cleared after antibiotics. [facility] obtains vital signs. PT explains she [...] Penicillin, ceclor, sulfa, tetanus vaccine and toxoid. [facility] contacts [facility] and explains above mentioned. [facility] advises pt needs to be evaluated in person at an emergency department due to vision changes. Initially pt does not want to go but [facility] stresses the importance of being evaluated. PT agrees. [facility] contacts 911 who sends [facility]. [facility] is to transport pt to [facility]. PT is currently c-collared due to a preexisting injury. PT also has been diagnosed with a foot infection and UTI which she is supposed to start cipro today but hasnt picked up the prescription yet. This information is passed along to EMS for the receiving RN. [facility] clear. ...................... ...................... ...................... ...................... ...................... ...................... ......... [facility] Consulted: Tawanna Bruno ...................... ...................... ...................... ...................... ...................... ...................... ......... Disposition: Fulfilled TAWANNA BRUNO MD [address] [facility], [place], [address], [employer] 03/10/2025 19:38:00 OBGyn Episode No OBEpisode recorded.
== END 2025-03-25 15:35 | disposition home or self-care (01) ==
LOC: HO.HKAS 14:47
PROVIDERS: PCP Nurse Practitioner Family; Visit Provider Internal Medicine Nephrology
DX: I10 Essential (primary) hypertension (principal); E87.1 Hypo-osmolality and hyponatremia
CPT/HCPCS: 99214

== ENCOUNTER → 2025-03-25 14:47 | Outpatient (BNVA) | payer OTHER, SELFPAY | PROVIDERS: PCP Nurse Practitioner Family; Visit Provider Internal Medicine Nephrology | DX: I10 Essential (primary) hypertension (principal); E87.1 Hypo-osmolality and hyponatremia; E87.70 Fluid overload, unspecified; F17.210 Nicotine dependence, cigarettes, uncomplicated | CPT/HCPCS: 99212 ==

== ENCOUNTER 2025-04-01 13:37 | Outpatient (AMB) | payer OTHER, SELFPAY ==
--- NOTE | 2025-04-01 14:00 | MHC.OFFVIS ---
Intake Visit Reasons: Follow up s/p C6 fracture Manager Msw Required: No Allergies succinylcholine Adverse Reaction (Severe, Verified 04/01/25 14:02) choline estrace deficiency cefaclor (From Ceclor) Adverse Reaction (Intermediate, Verified 04/01/25 14:02) hives Penicillins Adverse Reaction (Intermediate, Verified 04/01/25 14:02) hives Sulfa (Sulfonamide Antibiotics) Adverse Reaction (Intermediate, Verified 04/01/25 14:02) hives Tetanus Vaccines and Toxoid Adverse Reaction (Verified 04/01/25 14:02) Hemiparesis Medication List - Last Reconciled 04/01/25 by Sherie Lawson, DRUG ENFORCEMENT ADMINISTRATION AGENT albuterol sulfate 90 mcg/actuation (ProAir HFA) 2 puffs inhalation Q4-6H PRN amitriptyline PO ascorbic acid (vitamin C) 250 mg PO DAILY aspirin 81 mg PO DAILY atorvastatin 40 mg PO DAILY baclofen 20 mg PO QID 30 days buspirone 30 mg PO BID izthxwhwox-irtduuedrlmip-xrri 50-325-40 mg 1 - 2 tabs PO Q4-6H PRN 7 days calcium carbonate (Calcium Antacid) 200 mg PO DAILY cholecalciferol (vitamin D3) (Vitamin D3) 50 mcg PO DAILY clonazepam mg PO .prn deutetrabenazine ER (Austedo XR) 6 mg PO DAILY 1 month diltiazem HCl CD 240 mg PO DAILY erenumab-aooe (Aimovig Autoinjector) 140 mg subcut ONCE 30 days ferrous sulfate mg PO DAILY fluticasone propionate 50 mcg/actuation 1 spray intranasal BID folic acid 1 mg PO DAILY gabapentin 300 mg PO TID levothyroxine 150 mcg PO DAILY loratadine 10 mg PO DAILY magnesium oxide 400 mg PO DAILY methenamine hippurate 1 g PO BID mirabegron ER 25 mg PO DAILY pantoprazole (Protonix) 40 mg PO DAILY pyridoxine (vitamin B6) 50 mg PO DAILY sertraline 100 mg PO DAILY sodium chloride 1,000 mg PO TID thiamine HCl (vitamin B1) 100 mg PO DAILY ubrogepant (Ubrelvy) 50 - 100 mg (0.5 - 1 x 100 mg) PO ONCE PRN 30 days umeclidinium 62.5 mcg/actuation (Incruse Ellipta) 1 inh inhalation DAILY HPI Comments Details: 70-year-old female presents for urgent telephone visit for increase episodes of confusion. The visit was conducted via telephone as she was unable to utilize televideo technology today. Patient reports that she is having episodes of sudden onset confusion, not thinking clearly, head fuzziness (not dizziness), dropping her cigarette and lighting another one (while the fallen cigarette leos on the floor), she may fall (her legs will go weak and she w ill fall)and falling asleep or passing out. These symptoms all come together, and then can up to last 1-2 days. These episodes started after the fall in Jan 05, 2026. Both arms feel heavy and the arms are tingling- since the fall- Since, she has also had constant headache/migraine. Feels like she has not been hearing as well- has not been able to wear her hearing aides or have her routine ear wax removal procedure down. Ubrelvy helps the head pain, but she is not sure if it has any effect on her cognition. She has tried Aimovig x's 1, and is willing to retry it. She has a h/o severe KAYKAY, and could not use her ASV tx while wearing the c-spine collar. She is f/b Dr Garcia at [facility], who per pt, plans to order a f/u sleep study. Endorses a h/o seizure x's d/t hyponatremia (w/in the last 10 years). Denies dizziness. During this time, she has had mx ER evals: 03/30/2025, CT cervical spine w/o: No significant interval change in subacute C6 fractures and fracture alignment since 03/16/2025. Subtle early bridging callus formation at C6 lamina fracture component. No new acute fracture. 03/16/2025, CT head/brain and cervical spine w/o: No acute intracranial finding. 02/27/2025, CT Head/Brain W/O Contrast, CT Cervical Spine W/O Contrast: No proximal occlusion or high grade stenosis in the major arteries of the head and neck. Persistent nondisplaced fracture through the right lamina at C6 with extension into the right articular facets. Subacute appearing C6 fracture as above, unchanged from previous. 03/16/25: CBC- WNL, CMP- WNL, Sodium- 136 WNL EKG- 03/16/2025 Ventricular Rate: 57 BPM Atrial Rate: 57 BPM P-R Interval: 160 ms QRS Duration: 74 ms Q-T Interval: 490 ms QTC Calculation(Bazett): 476 ms P [place]: 30 degrees R [place]: -13 degrees T [place]: -31 degrees Sinus bradycardia Minimal voltage criteria for LVH, may be normal variant ( R in aVL ) Anteroseptal infarct (cited on or before 27-Feb-2025) T wave abnormality, consider lateral ischemia Abnormal ECG When compared with ECG of 12-Mar-2025 13:20, Serial changes of Anteroseptal infarct Present Confirmed by Roby Carballo ([id number]) on 03/16/2025 12:17:16 PM 05/28/2024, Echo, complete: Summary 1) The LV systolic function is normal. The left ventricular ejection fraction is 60-65% by visual assessment. There are no regional wall motion abnormalities. 2) The left ventricular wall thickness is mildly increased. 3) The right ventricle is normal in size and function. 4) The aortic valve is probably trileaflet. The aortic valve appears mildly calcified. There is no aortic stenosis. There is no aortic regurgitation. 5) There is moderate mitral annular calcification. The mitral valve appears mildly thickened. There is trace mitral regurgitation. Comparison No prior study available for comparison. She also saw rheumatology- . She was referred to [place]- an oral pathologist, for oral lesion. biopsy was negative for CA. There was concenr for fungal infection, and has been tx'd for this, but may use the rinse prn recurrence. Then referred to an oral-sur[place], [place], [facility] w/ TMD speciality to have dentures made d/t TMD s/s. She has been compliant with the sodium 1 Gm BID order per nephrology. Her Gabapentin was recently reduced from Gabapentyin 600mg tid to 300mg tid and her clonazepam was decreased from scheduled to now just prn (only rec'ing 15 tabs per month). She recently saw [facility] neurosurgery on 03/31, and they removed her hard collar. [facility] Medical History Alcohol abuse Drug abuse, IV Migraine with aura Neuroleptic-induced tardive dyskinesia COVID-19 vaccine series completed Back pain GERD (gastroesophageal reflux disease) Vertigo Anemia Hyponatremia Fracture of left femur Smoker Thyroid disease Asthma Schizoaffective disorder Hepatitis COPD (chronic obstructive pulmonary disease) Elevated cholesterol HTN (hypertension) Surgical History H/O skin graft S/P hardware removal Hx of elbow surgery History of pubovaginal sling History of esophagogastroduodenoscopy (EGD) Hx of colonoscopy History of appendectomy History of hip surgery Social History 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 Are you a primary janitor caretaker to a significant other at home: No Do you presently have visiting nurse or other home services: Yes (COMMERCIAL REAL ESTATE AGENT) Patient Tobacco Use Status: Current everyday Tobacco user Tobacco use type: Cigarette Cigarette Packs Per Day: 0.25 Cigarettes Per Day: 2 Years Smoked: 44 On Nicotene patch and lozengers to quit smoking started 2 weeks ago Second Hand Smoke Exposure: Yes Advance Directives Date on File: 05/27/20 Physical Exam Const General: cooperative and no acute distress Orientation/consciousness: patient oriented x3 Resp Effort & Inspection: normal respiratory effort and able to speak in complete sentences Neuro General: patient oriented x3 Cognition (Neuro): normal cognition Psych Mental Status: mental status grossly normal Attitude: cooperative Telehealth Telehealth Telehealth Platform: Telephone Location of provider rendering services: practice address Location of patient: address on file Patient Identification confirmed using: Name, : Yes Telehealth method: voice only Patient verbally consented to treatment: Yes Patient verbally consented to billing insurance company: Yes Patient informed of any privacy concerns related to visit: Yes Minutes spent on Phone/Video with Pt.: 30 Assessment & Plan Assessment & Plan (1) Transient alteration of awareness: Code(s): R40.4 - Transient alteration of awareness Category: Medical (2) Concussion without loss of consciousness: Code(s): S06.0X0A - Concussion without loss of consciousness, initial encounter Category: Medical Qualifiers: Encounter type: subsequent encounter Qualified Code(s): S06.0X0D - Concussion without loss of consciousness, subsequent encounter (3) Chronic migraine without aura: Comment: with intermittent aura . Code(s): G43.709 - Chronic migraine without aura, not intractable, without status migrainosus Category: Medical Qualifiers: Status migrainosus presence: with status migrainosus Intractability: intractable Qualified Code(s): G43.711 - Chronic migraine without aura, intractable, with status migrainosus (4) Migraine with aura, not intractable, without status migrainosus: Code(s): G43.109 - Migraine with aura, not intractable, without status migrainosus Category: Medical (5) Migraine with status migrainosus: Code(s): G43.901 - Migraine, unspecified, not intractable, with status migrainosus Category: Medical Qualifiers: Migraine type: unspecified Intractability: intractable Qualified Code(s): G43.911 - Migraine, unspecified, intractable, with status migrainosus (6) Tension type headache: Code(s): G44.209 - Tension-type headache, unspecified, not intractable Category: Medical Plan For new episodes of transient altered mental status, in the setting of recent fall with cervical fracture: Your advised to undergo: Baseline EEG Brain MRI with and without contrast May continue lower dose of gabapentin 300 mg 3 times a day Continue fluids and sodium supplement per Nephrology Follow-up with nephrology as scheduled Follow-up with [facility] neurosurgery regarding cervical fracture Advised to seek urgent medical attention with any additional falls including head strike, or marked changes in her symptoms. General cognition and headache management tips Combining good self-care with some helpful tools can make managing headaches much easier. Healthy Habits ? Eat a balanced diet ? Drink enough water throughout the day, typically at least 64 oz of fluid per day ? Get regular, adequate sleep consisting of 7-9 hours of sleep per night ? Stay active with routine physical activity, typically at least 30 minutes 5 days per week ? Stay connected with friends and family, enjoy meaningful activities, and take care of your mood. For acute (as needed) headache treatment: It is important to take acute medications at the first sign of headache. However, please be aware that frequently using most acute medications may increase the frequency of your headache attacks, as well as make your other treatments less effective. Continue Ubrogepant (Ubrelvy) 100mg tab: Take Ubrogepant 1/2 - 1 tab (50-100mg) at onset of headache. You may repeat the dose in 2 hours. Max of 2 tabs (200mg) per 24 hours. You may take Ubrogepant with OTC Tylenol 650mg q 4 hours, Ibuprofen (liquid gel) 600mg q 6 hours, or Naproxen (liquid gel) 440mg q 12 hrs as needed. Do not take Ubrogepant with or within 5 days of taking Butalbital (Fioricet or Fiorinal). Acute migraine medication contraindications: NSAIDs due to history of GI bleed. All triptans and DHE due to history of thalamic cerebral infarct, HTN, HLD. For headache prevention medication: Preventative medications should be taken routinely as prescribed for best effect, it may take several weeks for full effect to take effect. Start Riboflavin 400mg daily in the morning This is generally well tolerated, however some people may experience mild abdominal discomfort from use. This will cause your urine to become bright yellow or orange, which is expected and not of any concern. Continue Magnesium 400mg daily at bedtime Continue Aimovig 140mg/ml autoinjector, 1ml (140mg) subcutaneous injection once a month. Continue diltiazem-n used for HTNPrevious migraine prevention medication trials: Amitriptyline x3 months-ineffective. Migraine prevention medication contraindications: All beta-blockers due to COPD with emphysema diagnosis We will follow-up upon review of above and as scheduled, or sooner as needed. Orders: Orders EEG Routine 04/01/25 R40.4 - Transient alteration of awareness, S06.0X0A - Concussion without loss of consciousness, initial encounter MR head/brain wo/w con 04/01/25 R40.4 - Transient alteration of awareness, S06.0X0A - Concussion without loss of consciousness, initial encounter Medications: New riboflavin (vitamin B2) 400 mg PO DAILY 90 tabs 3RF 90 days Coding Level of Care Code Tele Est Pt Level 4 (24539) Diagnoses Transient alteration of awareness R40.4 Concussion without loss of consciousness, subsequent encounter S06.0X0D Encounter type: subsequent encounter Intractable chronic migraine without aura and with status migrainosus G43.711 Status migrainosus presence: with status migrainosus Intractability: intractable Migraine with aura, not intractable, without status migrainosus G43.109 Intractable migraine with status migrainosus, unspecified migraine type G43.911 Migraine type: unspecified Intractability: intractable Tension type headache G44.209
--- OUTSIDE RECORDS SUMMARY | 2025-04-01 17:49 | XMS_ITS | Clinical Summary ---
Author Organization [facility] Address [address] [place] [phone] Phone Care Team Providers Care Bone Crusher Name Role Phone Sanjay Carl NP Primary Care Provider [phone] Allergies Active Allergy Reactions Criticality Noted Date [...] PM EST - 03/10/2025 9:55 PM EST [facility] Emergency [address] [place] [address] Discharge Disposition: Home or Self Care from Last 3 Months Surgical History Surgery Date Site/Laterality Comments BLADDER SURGERY PROCEDURE: HISTORICAL BLADDER SURGERY; COMMENT: incontinence OTHER SURGICAL HISTORY 2010 PROCEDURE: CA UNLISTED PROCEDURE LEG/ANKLE; COMMENT: compartmental fasciitis OTHER SURGICAL HISTORY 10/30/10 PROCEDURE: COLONOSCOPY, SURGICAL; COMMENT: [facility] [place] Dr Ortiz ELBOW SURGERY 07/27/13 PROCEDURE: HISTORICAL ELBOW SURGERY; COMMENT: left ulnar nerve COLONOSCOPY 09/01/15 PROCEDURE: HISTORICAL COLONOSCOPY; COMMENT: Dr Coburn, neg biopsies FOOT SURGERY 12/08/15 Right PROCEDURE: HISTORICAL FOOT SURGERY; COMMENT: first metatarsophalangeal joint replacement with hemiphalangectomy FOOT SURGERY 08/30/2016 Left PROCEDURE: HISTORICAL FOOT SURGERY; COMMENT: left 1st metatarsophlangeal joint replacement ESOPHAGOGASTRODUODENOSCOPY 11/15/2016 PROCEDURE: CA ESOPHAGOGASTRODUODENOSCOPY TRANSORAL DIAGNOSTIC; COMMENT: Dr Coburn dilated but met no resistance, normal EGD, Dx is functional dysphagia ESOPHAGOGASTRODUODENOSCOPY 10/23/2018 PROCEDURE: CA ESOPHAGOGASTRODUODENOSCOPY TRANSORAL DIAGNOSTIC; COMMENT: normal by Dr Alpesh Murphy OTHER SURGICAL HISTORY 02/14/2019 Left PROCEDURE: CA OPTX FEM SHFT FX W/INSJ IMED IMPLT W/WO SCREW; COM[place] [facility] [place]. Medical History Medical History Date Comments Schizoaffective disorder (CM S/HCC V24, [facility] V28) DX:Schizoaffective disorder (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 V24) 09/26/2018 DX:SIADH (syndrome of inappr opriate ADH production) ([facility]); COMMENT: Shelter Advocate is Dr Adam Briceno MD Depression Anxiety COPD (chronic obstructive pu lmonary disease) ([facility] V24, [facility] V28) Overactive bladder Basal cell [...] care for your loved ones. For example, summer child caregiver or elderly care for an older adult? [...] Screening 1955 Colorectal Cancer Screening: Colonoscopy 1955 Non-Opioid Controlled Substance Agreement 1957 Diabetes: Annual Foot Exam 1967 Diabetes: [...] 2025 12/26/2024, 03/27/2023, 03/01/2022, Additional history exists Drug Screen 09/02/2025 09/02/2024 Social Influencers of Health Screening 09/02/2025 09/02/2024 [...] METABOLIC PANEL STAT 11/12/2024 8:41 AM EDT DRUG ABUSE SCREEN 8A PANEL, URINE Routine 09/02/2024 1:30 AM EDT from Last 3 Months or [...] LAB CHEMISTRY METHOD 11/12/2024 9:51 AM EDT [facility] Calcium 9.7 8.5 - 10.5 mg/dL LAB CHEMISTRY METHOD 11/12/2024 9:51 AM T [facility] Blood Venous blood specimen / Unknown Venipuncture / Unknown 11/12/2024 8:41 AM EDT 11/12/2024 9:16 AM EDT us Danis Johnson DO LAB BLOOD ORDERABLES Final Resu lt [facility] [address] [place] [address], * Drug abuse screen 8a panel, urine (09/02/2024 1:30 AM EDT) Amphetamine Screen, Ur Negative Negative LAB CHEMISTRY METHOD 09/02/2024 2:20 AM [facility] Comment:Certain OTC medicati ons containing ephedrine, phenylephrine, pseudoephedrine and phenylpropanolamine can cause false positive results. Barbiturate Screen, Ur Negative Negative LAB CHEMISTRY METHOD 09/02/2024 2:20 AM [facility] Benzodiazepine Screen, Ur Negative Negative LAB CHEMISTRY METHOD 09/02/2024 2:20 AM [facility] Cocaine Screen, Ur Negative Negative LAB CHEMISTRY METHOD 09/02/2024 2:20 AM [facility] Opiate Screen, Ur Negative Negative LAB CHEMISTRY METHOD 09/02/2024 2:20 AM [facility] Cannabinoid (THC) Screen, Ur Negative Negative LAB CHEMISTRY METHOD 09/02/2024 2:20 AM [facility] Comment:Specimens from patie nts taking pantoprazole sodium (Protonix) have been shown to produce false positive results. Oxycodone Screen, Ur Negative Negative LAB CHEMISTRY METHOD 09/02/2024 2:20 AM [facility] Fentanyl, Ur Negative Negative LAB CHEMISTRY METHOD 09/02/2024 2:20 AM EDT [facility] Urine Urine specimen obtained by clean catch procedure / Unknown Non-blood Collection / Unknown 09/02/2024 1:30 AM EDT 09/02/2024 1:51 AM EDT Narrative [facility] - 09/02/2024 2:20 AM EDT Assay [...] ROSE LAB URINE ORDERABLES Final R esult [facility] [address] [place] [address], from Last 3 Months or Most Recently Relevant to Health Maintenance Insurance MEDICAID - [place] [employer] MEDICARE Member Subscriber Plan / Payer (Ef fective 2024-Present) Name:Rhona Alcantar Relation to Subscriber:Self Name:Rhona Alcantar Payer ID:[id number] Group ID:[id number] Type:Not on file Address: [facility] [address] [id number] Advance Directives * Full Code - Default [...] currently active code status orders. Care Teams Bone Crusher Relationship Specialty Start Date End Date Sanjay Carl NP [address] [place] [address] [place] [id number] PCP - General Family Medicine 06/30/24
--- OUTSIDE RECORDS SUMMARY | 2025-04-01 17:49 | XMS_ITS | Continuity of Care Document ---
Author Organization [employer] [employer] [facility] Address [address] [place] [address] Care Team Providers Care Laceworker Name Role Phone HIM [facility] OTHER [facility] Primary Care Provider Assessment Encounter Date [...] or acute angle glaucoma. Patient transferred to [facility] in [place] for ER eval. Signed out at 7:17pm. I provided real -time medical direction via phone for this encounter, and was available for additional phone based assistance as needed. I have reviewed and agree with the Assessment and Plan as documented by the Electrical Maintenance Technician. We discussed the diagnostic uncertainty of home [...] Name and Address Organization Details Recorded Time 42238 Ceclor medicatio n Not available Not available Not available 04/28/202450436 5 RxNorm Not Available [facility] - production 15:29:00 75259 sulfameth oxazole medicatio n Not available Not available Not available 04/28/2024 36464 RxNorm Not Available [facility] - production 09:05:30 00510 Substance with sulfonami de structure and antibacte rial mechanism of action (substanc e) medicatio n Not available Not available Not available 02/24/2025 90661 8003 SNOMED [facility] 09:[facility]30 84104 succinylc holine Not available anaphylax is dyspnea Not available Not available [facility] 02/24/20252012 64255 RxNorm Per patie nt, respi rator y depre ssion /SOB after extub ation after recei ving this med for sedat ion chaz g a surge ry when she was 20 Not Available [facility] - External Data [employer] - prod 5 15:44:39 95168 cefaclor medicatio n hives other Not available Not available Not available 02/24/20252012 2176 RxNorm Not Available [facility] - External Data Service - prod 5 15:45:09 91808 succinylc holine chloride medicatio n dyspnea other Not available Not available high 02/24/20252023 3565 RxNorm Per patie nt, respi rator y depre ssion /SOB after extub ation after recei ving this med for sedat david arguello a surge ry when she was 20 Not Available [facility] - External Data Service - prod 5 15:45:09 13528 sulfadiaz ine medicatio n Not available Not available Not available 03/01/2025 68584 RxNorm Not Available [facility] - External Data Service - prod 5 17:18:00 penicilli n V potassium medicatio n Not available Not available Not available 03/01/202542657 5 RxNorm Not Available [facility] - External Data Service - prod 17:20:41 37507 Vaccine product containin g only Clostridi um tetani antigen (medicina l product) medicatio n Not available Not available Not available 03/10/2025 26271 2003 SNOMED Not Available [facility] 5 15:50:10 87445 penicilli n V Not available Not available Not available Not available 03/24/20252020 7984 RxNorm Not Available [facility] - External Data Service - prod 5 10:38:27 7025 Product containin g penicilli n (product) medicatio n Not available Not available Not available 02/11/2024 09631 8001 SNOMED Not Available [facility] 4 03:34:22 7026 Bactrim medicatio n Not available Not available Not available 02/11/2024 00373 9 RxNorm Not Available [facility] 5 09:05:30 Medications Name [...] Organization Details Last Updated DateTime 99 [degF] 37625.8 56 g 98 /min 96 % 16 [...] ICD10 Code Diagnosis IMO Codes Diagnosis Note [id number] Mary Cosme MD [facility] [address] [address] 02/24/2025 11:21:17 02/24/2025 13:01:47 Common cold 19207491 J00 47758 [id number] Ilia Wilkins MD [address] [address] 03/01/2025 14:36:25 03/01/2025 17:54:10 Bilateral acute conjunctivitis 4805916307 H10.33 [id number] Brayan Bates MD [address] [address] 03/06/2025 12:44:15 03/08/2025 20:59:28 General examination of patient 624536686 Z00.00 [id number] SHEILA ESCAMILLA MD [address] [address] 03/10/2025 18:00:35 03/10/2025 22:14:34 Blurring of visual image 422288312 H53.8 46180 Health Concerns Section Related Observation LastModified by Organization Detai ls LastModified Time None Recorded Concern Status LastModified by Organization Details LastModified Time None Recorded Payers Encounter Date Sequence Insurance Name Policy Number Policy Barba Covered Member ID Barba Member ID Guarantor Name 03/10/2025 1 [facility] - DOS ON OR AFTER 2022 - DUAL ELIGIBLE - INTERMEDIATE OPTIONS AND ONE CARE (MEDICARE REPLACEMENT/ADV ANTAGE - HMO) Rhona Gandara [id number] Rhona Gandara Notes Date Note Type Note Provider Name and Address Organization Details Recorded Time 03/10/2025 text/html ROS as noted in the [facility] Nurse Triage Notes (Jody Moe): Reason [...] eyes. She [facility]. She was given erythromycin ointment. She [...] ...................... ...................... ...................... ...................... ...................... ...................... ......... Electrical Maintenance Technician Note From Janak Cuello: [facility] makes pt contact a 70 YO [...] Penicillin, ceclor, sulfa, tetanus vaccine and toxoid. [facility] contacts [facility] and explains above mentioned. [facility] advises pt needs to be evaluated in person at an emergency department due to vision changes. Initially pt does not want to go but [facility] stresses the importance of being evaluated. PT agrees. [facility] contacts 911 who sends [facility]. [facility] transport [facility] to [facility]. PT is currently c-collared due to a preexisting injury. PT also has been diagnosed with a foot infection and UTI which she is supposed to start cipro today but hasnt picked up the prescription yet. This information is passed along to EMS for the receiving RN. [facility] clear. ...................... ...................... ...................... ...................... ...................... ...................... ......... [facility] Consulted: Sheila Escamilla ...................... ...................... ...................... ...................... ...................... ...................... ......... Disposition: Fulfilled SHEILA ESCAMILLA MD [address] [facility],[address], [place], [address], [employer] 03/10/2025 19:38:00 OBGyn Episode No OBEpisode recorded.
--- OUTSIDE RECORDS SUMMARY | 2025-04-01 17:49 | XMS_ITS | Clinical Summary ---
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 Gastroesophageal reflux disease 11/08/2015 11/24/2020 Overview (11/24/2020): Pt no showed barium swallow at [facility] 12/02/15 10:30am. Hyperlipidemia 03/23/2015 11/24/2020 Overview [...] Overview (11/24/2020): Per patient viral load undetectable. [facility] gastroenterology 12/27 egd nad-dr escobedo [...] Phone Billing Address Personal/Family Self 1955 [address] ([id number]) [place] [address] [facility] ([id number]) [place] [address] Care Teams Barrel Raiser Helper Relationship Specialty Start Date End Date Antoinette Zimmer MD [address] [place] [address] PCP - General Internal Medicine 11/25/20
--- OUTSIDE RECORDS SUMMARY | 2025-04-01 17:49 | XMS_ITS | Continuity of Care Document ---
Author Organization [employer] Address [address] [place] [address] Care Team Providers Care Supervisor Reactor Fueling Name Role Phone HIM [facility] OTHER [facility] Primary Care Provider Assessment Encounter Date Assessment Date Assessment LastModified by Organization Details LastModified Time 03/01/2025 03/01/2025 As noted, we wer e called to see this patient regarding concerns of conjunctivitis. Evaluation in the field was performed by my machine shop inspector colleague, as noted above, I provided real-time [...] mg/gram (0.5 %) eye ointment 2024 025 [facility] #[id number], [address] [place], [address], 14:41:26 Patient TargetsNo targets recorded. Patient InstructionsNo [...] Name and Address Organization Details Recorded Time 09964 Ceclor medicatio n Not available Not available Not available 04/28/202446147 5 RxNorm Not Available [facility] - production 15:29:00 65699 sulfameth oxazole medicatio n Not available Not available Not available 04/28/2024 46689 RxNorm Not Available [facility] - production 09:05:30 07358 Substance with sulfonami de structure and antibacte rial mechanism of action (substanc e) medicatio n Not available Not available Not available 02/24/2025 73498 8003 SNOMED Not Available [facility] 09:05:30 69873 succinylc holine Not available anaphylax is dyspnea Not available Not available high 02/24/20252012 80513 RxNorm Per patie nt, respi rator y depre ssion /SOB after extub ation after recei ving this med for sedat ion anisain g a surge ry when she was 20 Not Available [place] - External Data Service - prod 15:44:39 66610 cefaclor medicatio n hives other Not available Not available Not available 02/24/20252012 2176 RxNorm Not Available [facility] - External Data Service - prod 5 15:45:09 34000 succinylc holine chloride medicatio n dyspnea other Not available Not available [facility] 02/24/20252023 3565 RxNorm Per patie nt, respi rator y depre ssion /SOB after extub ation after recei ving this med for sedat ion anisain g a surge ry when she was 20 Not Available [facility] - External Data Service - prod 5 15:45:09 65111 sulfadiaz ine medicatio n Not available Not available Not available 03/01/2025 31173 RxNorm Not Available [facility] - External Data Service - prod 5 17:18:00 97702 penicilli n V potassium medicatio n Not available Not available Not available 03/01/202565214 5 RxNorm Not Available [facility] [employer] Data Service - prod 17:20:41 15268 Vaccine product containin g only Clostridi um tetani antigen (medicina l product) medicatio n Not available Not available Not available 03/10/2025 71344 2003 SNOMED Not Available [facility] 5 15:50:10 78632 penicilli n V Not available Not available Not available Not available 03/24/20252020 7984 RxNorm Not Available [facility] Data Service - prod 5 10:38:27 7025 Product containin g penicilli n (product) medicatio n Not available Not available Not available 02/11/2024 25520 8001 SNOMED Not Available [facility] 4 03:34:22 7026 Bactrim medicatio n Not available Not available Not available 02/11/2024 52863 9 RxNorm Not Available [facility] 5 18 /min 99 % 97.1 [degF] 77446.8 16 g 72 /min 152.4 cm 137/77 [...] ICD10 Code Diagnosis IMO Codes Diagnosis Note [id number] Ondina Velazquez MD [address] [address] 02/02/2025 16:01:19 02/03/2025 12:13:10 Bacterial conjunctivitis 106233732 H10.9 49482 w/ blephariti sAdvised to throw out any [...] he verbalized understand ing to the medic [id number] Mary Cosme MD [address] [address] 02/24/2025 11:21:17 02/24/2025 13:01:47 Common cold 86400381 J00 43064 [id number] Ilia Wilkins MD [facility] [address] [address] 03/01/2025 14:36:25 03/01/2025 17:54:10 Bilateral acute conjunctivitis 7430283204 H10.33 [id number] Health Concerns Section Related Observation LastModified by Organization Detai ls LastModified Time None Recorded Concern Status LastModified by Organization Details LastModified Time None Recorded Payers Encounter Date Sequence Insurance Name Policy Number Policy Barba Covered Member ID Barba Member ID Guarantor Name 03/01/2025 1 [facility] - DOS ON OR AFTER 2022 - DUAL ELIGIBLE - GROUP HOME OPTIONS AND ONE CARE (MEDICARE REPLACEMENT/ADV ANTAGE - HMO) Rhona Juliocesar [id number] Rhona Gandara Notes Date Note Type Note [...] ...................... ...................... ...................... ...................... ...................... ...................... ......... Inker Machine Note From Volodymyr Danielle: 70 year-old female [...] ...................... ...................... ...................... ...................... ...................... ...................... ......... [facility] Consulted: Ilia Wilkins ...................... ...................... ...................... ...................... ...................... ...................... ......... Disposition: Fulfilled ...................... ...................... ...................... ...................... ...................... ...................... ......... Inker Machine Note From Volodymyr Danielle:This has been updated by the machine shop inspector, Volodymyr Danielle, at (03/01/2025 15:17:12) 70 year-old [...] at it again. Ilia Wilkins MD [address] [facility],[address], [place], [address], [employer] 03/01/2025 15:22:44 OBGyn Episode No OBEpisode recorded.
--- OUTSIDE RECORDS SUMMARY | 2025-04-01 17:49 | XMS_ITS | Encounter Summary ---
Author Organization [facility] Address [address] [place] [address] [place] [address] Phone Care Team Providers Care Staffing Analyst Name Role Phone Sole Hendricks MD Unavailable [phone] Sanjay Carl REGISTRATION SPECIALIST Primary Care Provider [phone] Encounter Details Date Type Department Care Team (Late st Contact Info) Description 02/01/2023 Procedure Pass OR Admitting Dept - Virtual Department [address] [place] [address] Social History Tobacco Use Types Packs/Day Years [...] on filedocumented in this encounter Care Teams Staffing Analyst Relationship Specialty Start Date End Date Sanjay Carl, REGISTRATION SPECIALIST [address] [place] [address] PCP - General Nurse Practitioner 12/19/22 Sole Hendricks MD [address] [facility] [place] [address] Dermatology 12/12/22 documented as of this encounter Additional Source Comments The information contained in this document represents components of the legal health record. It is not the complete legal health record.[facility]
--- OUTSIDE RECORDS SUMMARY | 2025-04-01 17:49 | XMS_ITS | Continuity of Care Document ---
Author Organization [facility], [facility] Address [address] [facility] [address] [place] [address] Assessment No assessment recorded. Plan of Treatment Reminders Order Date Submit Date Provider Last Modified By Organization Details Last Modified Time Details Appointments FOLLOW UP 15 2025 10:00A M Delvin Rosales DPM Not available Not available Not available Lab None recorded . Referral None recorded . Procedures None recorded . Surgeries None recorded . Imaging None recorded . Medication Orders None recorded . Patient TargetsNo targets recorded. Patient Instructions Encounter Date Encounter Id Patient Instructions Last Modified By Organization Details Last Modified Time 03/09/2025 [id number] The patient was instructed in local wound care. She will cleanse the area daily and utilize a dry gauze pad in the first web space. I have written a prescription for cipro which she will take every twelve hours. [email or web address] Not available 03/09/2025 12:27:00 Reason for Referral None Reported. Problems Name Problem SNOMED Code Status Onset Date Resolution Date Notes Provider Name and Address Organization Details Recorded Time Cellulitis of toe of right foot Active 2024 Delvin Rosales DPM [address] [place], [address], [facility] 11:24:21 Peripheral neuropathy due to type 2 diabetes mellitus 0202683080601 Active 2024 Delvin Rosales DPM [address] [place], [address], [facility] 12:22:59 Onychomycos is 094975713 Active 2024 Delvin Rosales DPM [address] [place], [address], [facility] 12:23:48 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 Procedures Surgical History Date Name Laterality Status Provider Name and Address Organization Details Recorded Time 5 Ulcer Debridement completed Delvin Rosales DPM [address] [place], [address], [facility] 03/30/2025 11:20:23 5 Ulcer Debridement completed Delvin Rosales DPM [address] [place], [address], [facility] 03/09/2025 12:22:48 5 Nail Debridement completed Delvin Rosales DPM [address] [place], [address], [facility] 03/09/2025 12:22:26 Imaging Results None recorded. Procedure Notes None recorded. Medical Equipment None Reported. Allergies Allergen ID Allergen Name Allergen Category Reaction Reaction Severity Criticality Documentation Date Start Date Code Code System Note Provider Name and Address Organization Details Recorded Time 282 succinylc holine Not available Not available Not available Not available 03/18/2025 98309 RxNorm Not Available [facility] - prod 06:19:38 283 penicilli n V Not available other Not available Not available 03/18/20252020 7984 RxNorm Not Available [facility] - prod 06:19:49 284 Product containin g penicilli n (product) medicatio n hives other Not available Not available Not available 03/18/20252012 92453 8001 SNOMED Not Available [facility] - prod 06:19:50 285 Substance with sulfonami de structure and antibacte rial mechanism of action (substanc e) medicatio n hives Not available Not available 03/18/20252012 43363 8003 SNOMED Not Available [employer] [employer] - prod 5 06:19:50 286 Ceclor medicatio n Not available Not available Not available 03/18/202515198 5 RxNorm Ceclo r Not Available [employer] [facility] [employer] - prod 5 06:19:53 287 penicilli n V potassium medicatio n Not available Not available Not available 03/18/2025 5 RxNorm penic illin V potas sium Not Available [employer] [facility] [employer] - prod 5 06:19:53 288 sulfadiaz ine medicatio n Not available Not available Not available 03/18/2025 61650 RxNorm Not Available [employer] [facility] [employer] - prod 5 06:20:04 289 Vaccine product containin g only Clostridi um tetani antigen (medicina l product) medicatio n Not available Not available [facility] 03/18/2025 32469 2003 SNOMED Not Available [employer] - External [employer] - prod 5 06:20:24 94 cefaclor medicatio n Not available Not available Not available 03/09/20252012 2176 RxNorm unrec ogniz ed react ion (text : Hives /Urti caria , code: 59950 [id number]) (from exter nal sourc e) Not Available [employer] - External [employer] - prod 5 10:51:28 95 succinylc holine chloride medicatio n Not available Not available Not available 03/09/20252012 3565 RxNorm Not Available [employer] - [employer] - prod 5 10:51:28 Medications Name Sig Start Date Stop Date Status Note LastModified by Organization Details LastModified Time multivitami n tablet TAKE 1 TABLET BY MOUTH EVERY DAY active Not Available Not Available No t Available fluoxetine 40 mg capsule TAKE 1 CAPSULE BY MOUTH EVERY DAY IN THE MORNING active Not Available Not Available No t Available atorvastati n 40 mg tablet TAKE 1 TABLET BY MOUTH EVERY DAY active Not Available Not Available No t Available silver sulfadiazin e 1 % topical cream APPLY TO AFFECTED AREA TWICE A DAY FOR 14 DAYS 03/09 completed Not Available Not Available Not Available nystatin 100,000 unit/mL oral suspension RINSE WITH 5 ML FOR 3 MINUTES 4 TIMES DAILY AND SPIT OUT FOR 14 DAYS. active Not Available Not Available No t Available prednisone 10 mg tablet PLEASE SEE ATTACHED FOR DETAILED DIRECTION S active Not Available Not Available No t Available gabapentin 600 mg tablet 1 TABLET BY MOUTH 3 TIMES A DAY,X90 DAYS active Not Available Not Available No t Available doxycycline hyclate 100 mg capsule TAKE 1 CAPSULE BY MOUTH TWICE A DAY FOR 10 DAYS 03/09 completed Not Available Not Available Not Available loperamide 2 mg capsule TAKE 1 CAPSULE BY MOUTH EVERY 4 HOURS NEEDED LOOS STOOL active Not Available Not Available No t Available trazodone 50 mg tablet TAKE 1 TABLET BY MOUTH EVERY NIGHT AT BEDTIME NEEDED FOR SLEEP active Not Available Not Available No t Available Lidocaine Viscous 2 % mucosal solution APPLY 2 ML TOPICALLY 3 (THREE) TIMES A DAY. active Not Available Not Available No t Available ofloxacin 0.3 % eye drops ADMINISTE R 1 DROP INTO BOTH EYES 4 TIMES A DAY FOR 7 DAYS. 03/09 completed Not Available Not Available Not Available nystatin 100,000 unit/gram topical ointment PLEASE SEE ATTACHED FOR DETAILED DIRECTION S active Not Available Not Available No t Available ondansetron HCl 8 mg tablet TAKE 1 TABLET BY MOUTH EVERY 8 HOURS NEEDED FOR NAUSEA AND VOMITING active Not Available Not Available No t Available diltiazem CD 240 mg capsule,ext ended [...] Not Available Not Available No t Available sertraline 100 mg tablet TAKE 1 TABLET BY MOUTH EVERY DAY active Not Available Not Available No t Available thiamine HCl (vitamin B1) 100 mg tablet TAKE 1 TABLET BY MOUTH EVERY DAY active Not Available Not Available No t Available aspirin 81 mg tablet,rico yed release TAKE 1 TABLET BY MOUTH EVERY DAY active Not Available Not Available No t Available acetaminoph en 500 mg tablet TAKE 1 TABLET BY MOUTH EVERY 6 HOURS,X30 DAYS NEEDED FOR PAIN active Not Available Not Available No t Available butalbital- acetaminoph en-caffeine 50 mg-325 mg-40 mg tablet TAKE 1-2 [...] Not Available No t Available amitriptyli ne 25 mg tablet TAKE 1 TABLET BY MOUTH EVERYDAY AT BEDTIME active Not Available Not Available No t Available ascorbic acid (vitamin C) 250 mg tablet TAKE 1 TABLET BY MOUTH EVERY DAY active Not Available Not Available No t Available econazole nitrate 1 % topical cream APPLY TO AFFECTED AREAS ON THE FEET TWICE DAILY FOR TWO WEEKS. THEN ONCE WEEKLY FOR MAINTENAN CE. active Not Available Not Available No t Available pantoprazol e 40 mg tablet,rico yed release TAKE 1 TABLET BY MOUTH EVERY DAY active Not Available Not Available No t Available erythromyci n 5 mg/gram (0.5 %) eye ointment APPLY TO BOTH EYES EVERY 6 (SIX) HOURS FOR 5 DAYS. 03/09 completed Not Available Not Available Not Available buspirone 30 mg tablet TAKE 1 TABLET BY MOUTH TWICE A DAY active Not Available Not Available No t Available Cipro 500 mg tablet Take 1 tablet every 12 hours by oral route for 10 days. 03/26 completed Not Available Not Available Not Available buspirone 10 mg tablet TAKE 2 TABLETS BY MOUTH TWICE A DAY active Not Available Not Available No t Available prednisone 50 mg tablet TAKE 1 [...] mg capsule PLEASE SEE ATTACHED FOR DETAILED DIRECTION S active Not Available Not Available No t [...] mg tablet PLEASE SEE ATTACHED FOR DETAILED DIRECTION S active Not Available Not Available No t Available estradiol 0.01% (0.1 mg/gram) vaginal cream APPLY A DIME SIZED TO THE EXTERNAL VAGINAL TISSUE THREE TIMES A WEEK active Not Available Not Available No t Available albuterol sulfate HFA 90 mcg/actuati on aerosol inhaler TAKE 2 PUFFS BY MOUTH EVERY 6 HOURS NEEDED WHEEZING active Not Available Not Available No t Available ferrous sulfate 325 mg (65 mg iron) tablet,rico yed release TAKE 1 TABLET BY MOUTH EVERY OTHER DAY active Not Available Not Available No t Available ondansetron 4 mg disintegrat ing tablet TAKE 1 TO 2 TABLETS BY MOUTH 3 TIMES A DAY. MAX DOSE 4 TABS DAILY active Not Available Not Available No t Available fluticasone propionate 50 mcg/actuati on nasal spray,suspe nsion SPRAY 1 PUFF INTO EACH NOSTRIL TWICE DAILY. SHAKE BEFORE USE active Not Available Not Available No t Available sertraline 50 mg tablet TAKE 1 TABLET BY MOUTH EVERY DAY active Not Available Not Available No t Available doxycycline hyclate 100 mg tablet TAKE 1 TABLET BY MOUTH TWICE A DAY FOR 7 DAYS 03/09 completed Not Available Not Available Not Available loratadine 10 mg tablet TAKE 1 [...] Not Available Not Available No t Available neomycin 3.5 mg/g-polymy cami B 10,000 unit/g-dexa meth 0.1 % eye oint APPLY SMALL AMOUNT TO CONJUNCTI SANJUANA SAC AND SMALL AMOUNT TO LID MARGINS 3 TIMES DAILY X7 DAYS active Not Available Not Available No t Available azithromyci n 500 mg tablet TAKE 1 TABLET BY MOUTH EVERY DAY FOR 5 DAYS 03/09 completed Not Available Not Available Not Available aripiprazol e 10 mg tablet TAKE 1 TABLET BY MOUTH EVERY DAY IN THE MORNING active Not Available Not Available No t Available nicotine (polacrilex ) 2 mg buccal lozenge 1 LOZENGE SUBLINGUA LLY EVERY 2 HOURS,X6 WEEK(S). DO NOT CHEW OR SWALLOW WHOLE active Not Available Not Available No t Available cyclobenzap rine 5 mg tablet TAKE 1 TABLET BY MOUTH 3 TIMES A DAY FOR 7 DAYS active Not Available Not Available No t Available duloxetine 60 mg capsule,del ayed release TAKE 1 CAPSULE BY MOUTH TWICE A DAY active Not Available Not Available No t Available sodium chloride 1,000 mg soluble tablet TAKE 1 TABLET BY MOUTH EVERY DAY active Not Available Not Available No t Available diclofenac 1 % topical gel PLEASE SEE ATTACHED FOR DETAILED DIRECTION S active Not Available Not Available No t Available cholecalcif rosalie (vitamin D3) 50 mcg (2,000 unit) capsule TAKE 1 CAPSULE BY MOUTH EVERY DAY active Not Available Not Available No t Available Fiber Therapy (methylcell ulose-sugar ) 2 gram/19 gram oral powder DISSOLVE 2 GRAMS IN BEVERAGE AND DRINKM ONCE DAILY active Not Available Not Available No t Available Myrbetriq 25 mg tablet,exte nded release TAKE 1 TABLET BY MOUTH EVERY DAY active Not Available Not Available No t Available Incruse Ellipta 62.5 mcg/actuati on powder for inhalation 1 PUFFS INHALATIO N EVERY 24 HOURS,X24 HR,INSTR: APART. active Not Available Not Available No t Available magnesium 400 mg (as magnesium oxide) tablet TAKE 1 TABLET BY MOUTH EVERY DAY active Not Available Not Available No t Available Aimovig Autoinjecto r 140 mg/mL subcutaneou s auto-inject or INJECT 140 MG SUBCUTANE OUSLY ONCE FOR 30 DAYS active Not Available Not Available No t Available Ubrelvy 100 mg tablet PLEASE SEE ATTACHED FOR DETAILED DIRECTION S active Not Available Not Available No t [...] Available Not Available No t Available Vitals None Recorded Social History None recorded. Functional Status None recorded. Mental Status None recorded. Family History Nothing Reported. Medical History No medical history recorded. Gynecological HistoryNo gynecological history recorded. Obstetrics History GPAL:G 0 P 0 0 0 0 Past Encounters Encounter ID Performer Location Encounter Start Date Encounter Closed Date Diagnosis/Indication Diagnosis SNOMED-CT Code Diagnosis ICD10 Code Diagnosis IMO Codes Diagnosis Note [id number] [facility] [address] [facility] [address] [place] [address] 03/09/2025 10:48:09 03/09/2025 11:13:26 Peripheral neuropathy due to type 2 diabetes mellitus 0121024972 107 E11.42 4985603 Cellulitis of toe of right foot 2267782797 L03.031 194024 Onychomycosis 117118970 B35.1 89169 Ulcer of t oe due to type 2 diabetes mellitus 7332356084 33322 E11.621 L97.519 [id number] Health Concerns Section Related Observation LastModified by Organization Detai ls LastModified Time None Recorded Concern Status LastModified by Organization Details LastModified Time None Recorded Payers Encounter Date Sequence Insurance Name Policy Number Policy Barba Covered Member ID Barba Member ID Guarantor Name 03/09/2025 1 [facility] - DOS ON OR AFTER 2022 - MEDICARE [place]ANTAGE [place]ACEMENT/ADV ANTAGE - PPO) Rhona Gandara [id number] Rhona Gandara Notes Date Note Type Note Provider Name and Address Organization Details Recorded Time 03/09/2025 text/html Routine Foot CareReported by PatientHPIFor severity, patient reportsmoderate. For location, patient reportstoenail(s) [id number]) right5. For quality, patient reportsconstant. For duration, patient reportsmany years. For context, patient reportsdifficulty finding comfortable shoes. For aggravating factors, patient reportsambulationandfo otwear. For alleviating factors, patient reportsrestandwell-fit ting shoes.The patient is also concerned about an ulceration of the first interspace of the right foot. The patient reports the wound has been present for a few weeks. She was recently hospitalized for an unrelated health issue and the wound was discovered. She has been performing local wound care and was placed on oral doxycycline upon discharge from the hospital. Delvin Rosales DPM [address] [place], [address], [facility] - [facility] 03/09/2025 12:30:14 OBGyn Episode No OBEpisode recorded.
--- OUTSIDE RECORDS SUMMARY | 2025-04-01 17:49 | XMS_ITS | Encounter Summary ---
Author Organization [facility] Address [address] [place] [address] Phone Care Team Providers Care Senior Genetic Counselor Name Role Phone Sole Hendricks MD Unavailable [phone] Sanjay Carl NP Primary Care Provider [phone] Encounter Details Date Type Department Care Team (Late st Contact Info) Description 05/17/2023 Procedure Pass [facility] [address] [place] [address] Social History Tobacco Use Types Packs/Day Years [...] filedocumented in this encounter Care Teams Senior Genetic Counselor Relationship Specialty Start Date End Date Sanjay Carl, PACKAGE PICK UP [address] [place] [address] PCP - General Nurse Practitioner 12/19/22 Sole Hendricks MD [facility] [facility] [place] [id number] Dermatology 12/12/22 documented as of this encounter Additional Source Comments The information contained in this document represents components of the legal health record. It is not the complete legal health record.[facility]
--- OUTSIDE RECORDS SUMMARY | 2025-04-01 17:49 | XMS_ITS | Continuity of Care Document ---
Author Organization [facility], [facility] Address [address] [facility] [address] [place] [address] Assessment No assessment recorded. Plan of Treatment [...] recorded . Patient TargetsNo targets recorded. Patient InstructionsNo instructions recorded. Reason for Referral None Reported. Problems Name Problem SNOMED Code Status Onset Date Resolution Date Notes Provider Name and Address Organization Details Recorded Time Cellulitis of toe of right foot Active 2024 Delvin Rosales DPM [address] [facility] [place], [address], [facility] 11:24:21 Peripheral neuropathy due to type 2 diabetes mellitus 3465332937489 Active 2024 Delvin Rosales DPM [address] [place], [address], [facility] 12:22:59 Onychomycos is 972370836 Active 2024 Delvin Rosales DPM [address] [facility] [place], [address], [facility] 12:23:48 Ulcer of toe due to type 2 diabetes mellitus 4534688883881 01 Active 2024 Delvin Rosales DPM [address] [place], [address], [facility] 5 12:25:14 Problem Notes None recorded. Procedures Surgical History Date Name Laterality Status Provider Name and Address Organization Details Recorded Time 5 Ulcer Debridement completed Delvin Rosales, [facility]END[facility] [address] [place], [address], [facility] 03/30/2025 11:20:23 5 Ulcer Debridement completed Delvin Rosales DPM [address] [place], [address], [facility] 03/09/2025 12:22:48 5 Nail Debridement completed Delvin Rosales DPM [address] [place], [address], [facility] 03/09/2025 12:22:26 Imaging Results None recorded. Procedure Notes None recorded. Medical Equipment None Reported. Allergies Allergen ID Allergen Name Allergen Category Reaction Reaction Severity Criticality Documentation Date Start Date Code Code System Note Provider Name and Address Organization Details Recorded Time 282 succinylc holine Not available Not available Not available Not available 03/18/2025 67146 RxNorm Not Available [employer] [facility] - prod 06:19:38 283 penicilli n V Not available other Not available Not available 03/18/20252020 7984 RxNorm Not Available [employer] - prod 06:19:49 284 Product containin g penicilli n (product) medicatio n hives other Not available Not available Not available 03/18/20252012 36050 8001 SNOMED Not Available [employer] - [employer] - prod 06:19:50 285 Substance with sulfonami de structure and antibacte rial mechanism of action (substanc e) medicatio n hives Not available Not available 03/18/20252012 35050 8003 SNOMED Not Available [employer] - prod 06:19:50 286 Ceclor medicatio n Not available Not available Not available 03/18/202552517 5 RxNorm Ceclo r Not Available [employer] - [employer] - prod 5 06:19:53 287 penicilli n V potassium medicatio n Not available Not available Not available 03/18/2025 31546 5 RxNorm penic illin V potas sium Not Available [employer] - [employer] - prod 5 06:19:53 288 sulfadiaz ine medicatio n Not available Not available Not available 03/18/2025 15356 RxNorm Not Available [employer] - [employer] - prod 5 06:20:04 289 Vaccine product containin g only Clostridi um tetani antigen (medicina l product) medicatio n Not available Not available [facility] 03/18/2025 66539 2003 SNOMED Not Available [employer] - External [employer] - prod 5 06:20:24 94 cefaclor medicatio n Not available Not available Not available 03/09/20252012 2176 RxNorm unrec ogniz ed react ion (text : Hives /Urti caria , code: 17579 009) (from exter nal sourc e) Not Available [employer] - prod 5 10:51:28 95 succinylc holine chloride medicatio n Not available Not available Not available 03/09/20252012 3565 RxNorm Not Available [employer] - prod 5 10:51:28 Medications [...] [address] [facility] [address] [facility] [address] [place] [address] 03/09/2025 10:48:09 03/09/2025 11:13:26 Peripheral neuropathy due to type 2 diabetes mellitus 6385827580 107 E11.42 6690541 Cellulitis of toe of right foot 8617755756 L03.031 225541 Onychomycosis 413501314 B35.1 84548 Ulcer of t oe due to type 2 diabetes mellitus 4156335997 52436 E11.621 L97.519 [id number] [address] [facility] [address] [facility] [place] [address] 03/18/2025 10:16:59 03/19/2025 14:40:51 Ulcer of toe due to type 2 diabetes mellitus 8509545474 03744 E11.621 L97.519 70912448 Cellulitis of toe of right foot 4714266412 L03.031 856737 Peripheral neuropathy due to type 2 diabetes mellitus 4032840905 107 E11.42 5273915 Health Concerns Section Related Observation LastModified by Organization Detai ls LastModified Time None Recorded Concern Status LastModified by Organization Details LastModified Time None Recorded Payers Encounter Date Sequence Insurance Name Policy Number Policy Barba Covered Member ID Barba Member ID Guarantor Name 03/18/2025 1 [facility] - DOS ON OR AFTER 2022 - MEDICARE [place]ANTAGE [place]/ADV ANTAGE - PPO) Rhona Gandara [id number] Rhona Gandara Notes Date Note Type Note Provider Name and Address Organization Details Recorded Time 03/18/2025 text/html The patient is seen today for follow up care concerning an ulceration of the second toe. The patient has been compliant wit her home going instructions. She has performing daily dressing changes. She denies any redness, swelling, drainage, pus, or odor. She denies any nausea, vomiting, fever, chills or night sweats. The patient is also here for painful elongated toenails the condition has been present for years. Additionally she has multiple painful calluses. Delvin Rosales DPM [address] [place] [address], [address], [facility] - [facility] 03/18/2025 10:37:43 OBGyn Episode No OBEpisode recorded.
--- OUTSIDE RECORDS SUMMARY | 2025-04-01 17:49 | XMS_ITS | Continuity of Care Document ---
Author Organization [facility], [facility] Address [address] [facility] [address] [place] [address] Assessment No assessment recorded. Plan of Treatment [...] foot Active 2024 Delvin Rosales DPM [address] [facility] [place], [address], [facility] 11:24:21 Peripheral neuropathy due to type 2 diabetes mellitus 0665944705982 Active 2024 Delvin Rosales DPM [address] [place], [address], [facility] 12:22:59 Onychomycos is 315032577 Active 2024 Delvin Rosales DPM [address] [facility] [place], [address], [facility] 12:23:48 Ulcer of toe due to type 2 diabetes mellitus 1154832127957 01 Active 2024 Delvin Rosales DPM [address] [place], [address], [facility] 5 12:25:14 Problem Notes None recorded. Procedures Surgical History Date Name Laterality Status Provider Name and Address Organization Details Recorded Time 5 Ulcer Debridement completed Delvin Rosales, GWENDOLYN [address] [place], [address], [facility] 03/30/2025 11:20:23 5 Ulcer Debridement completed Delvin Rosales DPM [address] [place], [address], [facility] 03/09/2025 12:22:48 5 Nail Debridement completed Delvin Rosales DPM [address] [place], [address], [facility] 03/09/2025 12:22:26 Imaging Results None recorded. Procedure Notes None recorded. Medical Equipment None Reported. Allergies Allergen ID Allergen Name Allergen Category Reaction Reaction Severity Criticality Documentation Date Start Date Code Code System Note Provider Name and Address Organization Details Recorded Time 282 succinylc holine Not available Not available Not available Not available 03/18/2025 31312 RxNorm Not Available [employer] - prod 06:19:38 283 penicilli n V Not available other Not available Not available 03/18/20252020 7984 RxNorm Not Available [employer] - prod 06:19:49 284 Product containin g penicilli n (product) medicatio n hives other Not available Not available Not available 03/18/20252012 72778 8001 SNOMED Not Available [employer] - [employer] - prod 06:19:50 285 Substance with sulfonami de structure and antibacte rial mechanism of action (substanc e) medicatio n hives Not available Not available 03/18/20252012 15289 8003 SNOMED Not Available [employer] - prod 06:19:50 286 Ceclor medicatio n Not available Not available Not available 03/18/202541174 5 RxNorm Ceclo r Not Available [employer] - [employer] - prod 5 06:19:53 287 penicilli n V potassium medicatio n Not available Not available Not available 03/18/2025 76246 5 RxNorm penic illin V potas sium Not Available [employer] - [employer] - prod 5 06:19:53 288 sulfadiaz ine medicatio n Not available Not available Not available 03/18/2025 60094 RxNorm Not Available [employer] - [employer] - prod 5 06:20:04 289 Vaccine product containin g only Clostridi um tetani antigen (medicina l product) medicatio n Not available Not available [facility] 03/18/2025 06049 2003 SNOMED Not Available [employer] - [employer] - prod 5 06:20:24 94 cefaclor medicatio n Not available Not available Not available 03/09/20252012 2176 RxNorm unrec ogniz ed react ion (text : Hives /Urti caria , code: 32417 009) (from exter nal sourc e) Not Available [employer] - prod 5 10:51:28 95 succinylc holine chloride medicatio n Not available Not available Not available 03/09/20252012 3565 RxNorm Not Available [employer] - prod 5 10:51:28 Medications [...] 265 [facility] [address] [facility] [address] [place] [address] 03/09/2025 10:48:09 03/09/2025 11:13:26 Peripheral neuropathy due to type 2 diabetes mellitus 9719624485 107 E11.42 5963606 Cellulitis of toe of right foot 7124262414 L03.031 572218 Onychomycosis 110700891 B35.1 84507 Ulcer of t oe due to type 2 diabetes mellitus 8555715077 23383 E11.621 L97.519 [id number] 388 [facility] [address] [facility] [address] [place] [place] [address] 03/18/2025 10:16:59 03/19/2025 14:40:51 Ulcer of toe due to type 2 diabetes mellitus 7696453381 64761 E11.621 L97.519 78929414 Cellulitis of toe of right foot 5202419398 L03.031 317182 Peripheral neuropathy due to type 2 diabetes mellitus 4631655772 107 E11.42 [id number] 519 [facility] [address] [facility] [address] [place] [place] [address] 03/30/2025 10:04:15 03/30/2025 10:32:41 Ulcer of toe due to type 2 diabetes mellitus 8655895503 43814 E11.621 L97.519 51020988 Cellulitis of toe of right foot 3413521119 L03.031 655488 Peripheral neuropathy due to type 2 diabetes mellitus 1995209074 107 E11.42 7059802 Health Concerns Section Related Observation LastModified by Organization Detai ls LastModified Time None Recorded Concern Status LastModified by Organization Details LastModified Time None Recorded Payers Encounter Date Sequence Insurance Name Policy Number Policy Barba Covered Member ID Barba Member ID Guarantor Name 03/30/2025 1 [facility] - DOS ON OR AFTER 2022 - MEDICARE ADVANTAGE [place]PLACEMENT/ADV ANTAGE - PPO) Rhona Gandara [id number] Rhona Gandara Notes Date Note Type Note Provider Name and Address Organization Details Recorded Time 03/30/2025 text/html The patient is seen today for follow up care concerning an ulceration of the second toe. The patient has been compliant wit her home going instructions. She has performing daily dressing changes. She denies any redness, swelling, drainage, pus, or odor. She denies any nausea, vomiting, fever, chills or night sweats. Delvin Rosales, GWENDOLYN [address] [facility], [place], [address], [place] - [facility] 03/30/2025 11:22:51 OBGyn Episode No OBEpisode recorded.
--- OUTSIDE RECORDS SUMMARY | 2025-04-01 17:50 | XMS_ITS | Patient Health Record ---
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 Name Role Phone HaynesNicky Primary Care Provider [...] 1 tablet as needed Orally Active Nystatin 792580 UNIT/GM 1 application Externally Twice a day; [...] h difference (M21.70) Active confirmed Problem Polyneuropathy (72784273) Other polyneuropathy (G62.89) Active confirmed Plan Of Treatment Pending Test Test Name Order Date Hepatic Function Panel (7) 05/02/2020 Insurance Providers Payer Name Payer Address Payer Phone Subscriber Number Group Number Insured Name Patient Relationship to Insured Coverage Start Date Coverage End Date [facility] [address] [place] [phone] [facility] [id number] Rhona Gandara Self - patient is the [...]
--- OUTSIDE RECORDS SUMMARY | 2025-04-01 17:50 | XMS_ITS | Data Portability ---
Author Organization [facility] Address [address] [place] [address] Assessment No assessment recorded. Plan of Treatment Reminders Order Date Submit Date Provider Last Modified By Organization Details Last Modified Time Details Appointments FOLLOW UP 15 2025 10:00A M Delvin Rosalse DPM Not available Not available Not available [...] which she will take every twelve hours. Not available 03/09/2025 12:27:00 Reason for Referral None Reported. Problems Name Problem SNOMED Code Status Onset Date Resolution Date Notes Provider Name and Address Organization Details Recorded Time Cellulitis of toe of right foot Active 2024 Delvin Rosales DPM [address] [facility] [place], [address], [facility] 11:24:21 Peripheral neuropathy due to type 2 diabetes mellitus 1683816179891 Active 2024 Delvin Rosales DPM [address] [facility] [place], [address], [facility] 12:22:59 Onychomycos is 623738293 Active 2024 Delvin Rosales DPM [address] [facility] [place], [address], [facility] 5 12:23:48 Ulcer of toe due to type 2 diabetes mellitus 0286668313612 01 Active 2024 Delvin Rosales, GWENDOLYN [address] [facility], [place], [address], [facility] 12:25:14 Problem Notes None recorded. Procedures Surgical History Date Name Laterality Status Provider Name and Address Organization Details Recorded Time 5 Ulcer Debridement completed Delvin GWENDOLYN Rosales [address] [place], [address], [facility] 03/30/2025 11:20:23 5 Ulcer Debridement completed Delvincaitlyn Rosales DPM [address] [place], [address], [facility] 03/09/2025 12:22:48 5 Nail Debridement completed Delvincaitlyn Rosales DPM [address] [place], [address], [facility] 03/09/2025 12:22:26 Imaging Results None recorded. Procedure Notes None recorded. Medical Equipment None Reported. Allergies Allergen ID Allergen Name Allergen Category Reaction Reaction Severity Criticality Documentation Date Start Date Code Code System Note Provider Name and Address Organization Details Recorded Time 282 succinylc holine Not available Not available Not available Not available 03/18/2025 54387 RxNorm Not Available [employer] - prod 06:19:38 283 penicilli n V Not available other Not available Not available 03/18/20252020 7984 RxNorm Not Available [employer] - prod 06:19:49 284 Product containin g penicilli n (product) medicatio n hives other Not available Not available Not available 03/18/20252012 36720 8001 SNOMED Not Available [employer] - prod 06:19:50 285 Substance with sulfonami de structure and antibacte rial mechanism of action (substanc e) medicatio n hives Not available Not available 03/18/20252012 40336 8003 SNOMED Not Available [employer] - [employer] - prod 5 06:19:50 286 Ceclor medicatio n Not available Not available Not available 03/18/202557590 5 RxNorm Ceclo r Not Available [employer] - [employer] - prod 5 06:19:53 287 penicilli n V potassium medicatio n Not available Not available Not available 03/18/202517948 5 RxNorm penic illin V potas sium Not Available [employer] - [employer] - prod 5 06:19:53 288 sulfadiaz ine medicatio n Not available Not available Not available 03/18/2025 29646 RxNorm Not Available [employer] - [employer] - prod 5 06:20:04 289 Vaccine product containin g only Clostridi um tetani antigen (medicina l product) medicatio n Not available Not available [facility] 03/18/2025 23952 2003 SNOMED Not Available [employer] - [employer] - prod 5 06:20:24 94 cefaclor medicatio n Not available Not available Not available 03/09/20252012 2176 RxNorm unrec ogniz ed react ion (text : Hives /Urti caria , code: 82801 009) (from exter nal sourc e) Not [...] 265 [facility] [address] [facility] [place] [address] 03/09/2025 10:48:09 03/09/2025 11:13:26 Peripheral neuropathy due to type 2 diabetes mellitus 9203310814 107 E11.42 3918584 Cellulitis of toe of right foot 0477610758 L03.031 033141 Onychomycosis 332960539 B35.1 10440 Ulcer of t oe due to type 2 diabetes mellitus 1524801404 73832 E11.621 L97.519 [id number] 388 [facility] [address] [address] [place] [address] 03/18/2025 10:16:59 03/19/2025 14:40:51 Ulcer of toe due to type 2 diabetes mellitus 9343388764 85507 E11.621 L97.519 49578566 Cellulitis of toe of right foot 8711688168 L03.031 863585 Peripheral neuropathy due to type 2 diabetes mellitus 8956898379 107 E11.42 [id number] 519 [facility] [address] [address] [place] [address] 03/30/2025 10:04:15 03/30/2025 10:32:41 Ulcer of toe due to type 2 diabetes mellitus 4877014773 41454 E11.621 L97.519 65392378 Cellulitis of toe of right foot 0786936402 L03.031 224296 Peripheral neuropathy due to type 2 diabetes mellitus 7014838448 107 E11.42 4738704 Health Concerns Section Related Observation LastModified by Organization Detai ls LastModified Time None Recorded Concern Status LastModified by Organization Details LastModified Time None Recorded Advance Directives Directive None Recorded Payers Insurance Date Sequence Insurance Name Policy Number Policy Barba Covered Member ID Barba Member ID Guarantor Name 03/27/2025 1 [facility] - DOS ON OR AFTER 2022 - MEDICARE [place]ANTAGE [place]V ANTAGE - PPO) Rhona Gandara [id number] Rhona Gandara Notes Date Note Type Note Provider Name and Address Organization Details Recorded Time 03/09/2025 text/html Routine Foot CareReported by PatientHPIFor severity, patient reportsmoderate. For location, patient reportstoenail(s) [id number](s) right5. For quality, patient reportsconstant. For duration, [...] from the hospital. Delvin Rosales DPM [address] [place], [address], [facility] 03/09/2025 12:30:14 03/18/2025 text/html The patient is seen today [...] has multiple painful calluses. Delvin Rosales DPM [address] [place], [address], [facility] 03/18/2025 10:37:43 03/30/2025 text/html The patient is seen today for follow up care concerning an ulceration of the second toe. The patient has been compliant wit her home going instructions. She has performing daily dressing changes. She denies any redness, swelling, drainage, pus, or odor. She denies any nausea, vomiting, fever, chills or night sweats. Delvin Rosales DPM [address] [place], [address], [facility] 03/30/2025 11:22:51 OBGyn Episode No OBEpisode recorded.
--- OUTSIDE RECORDS SUMMARY | 2025-04-01 17:50 | XMS_ITS | Continuity of Care Document ---
Author Organization [place] - [facility], [facility] Address [address] [place] [address] Care Team Providers Care Multi Craft Maintenance Technician Name Role Phone LESA MONZON Primary Care Provider Assessment Encounter Date Assessment Date Assessment LastModified by Organization Details LastModified Time 01/08/2025 01/08/2025 70 year old female, with a history of chronic migraine, presents for evaluation of chronic sinusitis. CT head without contrast performed 01/05/25 at [facility] showed no parenchymal hemorrhage, [...] contr ast No observ ation record ed. [email or web address] Not Available 12/15 11:03:54 Result Notes None recorded. Problems Name Problem SNOMED Code Status Onset Date Resolution Date Notes Provider Name and Address Organization Details Recorded Time Difficult y speaking Active 2014 Symptoms involving head and neck: Hoarsenes s; Note: Date Diagnosed : 08/30/2014 2:05 PM (784.42) Not Available [facility] 4 02:32:49 Harmful pattern of use of alcohol 45845415 Active 2018 Alcohol use disorder, mild; Note: Date Diagnosed : 08/11/2018 4:23 PM (F10.10) Not Available [facility] 4 02:32:48 Impacted cerumen of bilateral ears 56910188163 99087 Active 2018 Impacted cerumen, bilateral ; Note: Date Diagnosed : 08/11/2018 4:23 PM (H61.23) Not Available [facility] 4 02:32:50 Dysphonia 43205927 Active 2018 Hoarsenes s; Note: Date Diagnosed : 08/11/2018 4:23 PM (R49.0) Not Available [facility] 4 02:32:41 Tobacco dependenc e caused by cigarette s 86185877425 588816 Active 2018 Nicotine dependenc e, cigarette s, uncomplic ated; Note: Date Diagnosed : 08/11/2018 4:23 PM (F17.210) Not Available [facility] 4 02:32:39 Edema of larynx 63515705 Active 2018 Edema of larynx; Note: Date Diagnosed : 08/11/2018 4:23 PM (J38.4) Not Available [facility] 4 02:32:51 Chronic rhinitis 86594020 Active 2018 Rhinitis, chronic; Note: Date Diagnosed : 08/30/2014 2:05 PM (472.0) ; Start Date : 5 Chronic rhinitis; Note: Date Diagnosed : 08/11/2018 4:23 PM (J31.0) Not Available [facility] 4 02:32:46 Dysphagia 59646427 Active 2018 Dysphagia , unspecifi ed; Note: Date Diagnosed : 08/11/2018 4:23 PM (R13.10) Not Available [facility] 4 02:32:46 Bilateral tinnitus 82064728519 02 Active 2021 Tinnitus, bilateral ; Note: Date Diagnosed : 03/23/2022 10:21 AM (H93.13) Not Available [facility] 4 02:32:44 Migraine without aura, not refractor y 786134642 Active 2021 Migraine without aura, not intractab le, without status migrainos us; Note: Date Diagnosed : 03/23/2022 12:11 PM (G43.009) Not Available [facility] 4 02:32:42 Dizziness and giddiness 972109683 Active 2021 Dizziness and giddiness ; Note: Date Diagnosed : 03/23/2022 10:21 AM (R42) Not Available [facility] 4 02:32:40 Sensorine ural hearing loss 77406207 Active 2021 Sensorine ural hearing loss, unilatera l, left ear, with unrestric shane hearing on the contralat eral side; Note: Date Diagnosed : 03/23/2022 10:21 AM (H90.42) Not Available [facility] 4 02:33:00 Sensorine ural hearing loss of bilateral ears 704037786 Active 2022 Sensorine ural hearing loss, bilateral ; Note: Date Diagnosed : 12/27/2022 11:59 AM (H90.3) Not Available [facility] 4 02:32:43 Abnormal sensation 083796140 [facility] [address], [place], [place], [address] , [facility] - [facility] 5 17:09:11 Migraine 24232633 Active 2024 [address], [place], [place], [address] , [facility] - [facility] 5 16:05:47 Allergic rhinitis 13238267 [facility] [address], [place], [address] , [facility] 5 16:06:08 Problem Notes None recorded. Medical Equipment None Reported. Allergies Allergen ID Allergen Name Allergen Category Reaction Reaction Severity Criticality Documentation Date Start Date Code Code System Note Provider Name and Address Organization Details Recorded Time 58195 Ceclor medicatio n other Not available Not available 08/27/202395842 5 RxNorm React ion: unkno wn, unspe cifie d;; Not Available [facility] 4 00:56:50 48310 penicilli n V potassium medicatio n other Not available Not available 08/27/202383966 5 RxNorm React ion: unkno wn, unspe cifie d;; Not Available [facility] 4 00:56:55 05929 Substance with sulfonami de structure and antibacte rial mechanism of action (substanc e) medicatio n other Not available Not available 08/27/2023 25068 8003 SNOMED React ion: unkno wn, unspe cifie d;; Not Available [facility] 4 00:56:56 Medications Name Sig Start Date [...] 325 mg tablet active Medicati on ID: 186911 B rand Name: acetamin ophen Se nd Method: E-Prescr ibed Sub s Allowed: subs OK Medic ationGen ericName : acetamin ophen Not Available Not Available Not Available prednison e 10 mg tablet PLEASE SEE ATTACHED FOR DETAILED DIRECTIO NS active Not Available Not Available No t Available nitrofura ntoin macrocrys inocencio 50 mg capsule 01/25 completed Medicati on ID: 294161 D uration Value: 30 Brand Name: nitrofur antoin macrocry stal Sen d Method: E-Prescr ibed Sub s Allowed: subs OK Speci al Instruct ion: TK 1 C PO QD Medic ationGen ericName : nitrofur antoin macrocry stal Not Available Not Available Not Available oxybutyni n chloride ER 15 mg tablet,ex tended release 24 hr 01/25 completed Medicati on ID: 813533 D uration Value: 30 Brand Name: oxybutyn [...] %) eye drops active Medicati on ID: 835192 B rand Name: ketotife n fumarate Send [...] 15 mg tablet active Medicati on ID: 764582 B rand Name: meloxica m Send Method: [...] elayed release 01/25 completed Medicati on ID: 62479 Du ration Value: 30 Brand Name: Nexium [...] mg tablet 03/23 completed Medicati on ID: 424660 B rand Name: tramadol Send Method: E-Prescr [...] in a packet active Medicati on ID: 969730 B rand Name: Cholesty ramine Light Se [...] mg tablet 03/23 completed Medicati on ID: 22331 Du ration Value: 30 Brand Name: citalopr [...] mg tablet 03/23 completed Medicati on ID: 401998 B rand Name: baclofen Send Method: E-Prescr [...] iron) tablet 03/23 completed Medicati on ID: 330550 D uration Value: 30 Brand Name: ferrous sulfate Send Method: E-Prescr ibed Sub s Allowed: subs OK Medic ationGen ericName : ferrous sulfate Not Available Not Available Not Available ropinirol e 0.5 mg tablet active Medicati on ID: 209129 B rand Name: ropiniro le Send Method: [...] mg tablet 03/23 completed Medicati on ID: 65878 Du ration Value: 20 Brand Name: benztrop [...] mg tablet 03/23 completed Medicati on ID: 188885 D uration Value: 15 Brand Name: alprazol am Send Method: E-Prescr ibed Sub s Allowed: subs OK Medic ationGen ericName : alprazol am Not Available Not Available Not Available ibuprofen 600 mg tablet PLEASE SEE ATTACHED FOR DETAILED DIRECTIO NS active Not Available Not Available No t Available polyethyl nilton glycol 3350 17 gram/dose oral powder 03/23 completed Medicati on ID: 053345 D uration Value: 30 Brand Name: polyethy [...] mg tablet 01/25 completed Medicati on ID: 84878 Du ration Value: 30 Brand Name: oxybutyn [...] mg tablet 03/23 completed Medicati on ID: 328876 B rand Name: amitript sergio Se nd [...] xtended release 03/23 completed Medicati on ID: 944562 D uration Value: 90 Brand Name: Cartia XT Send Method: E-Prescr ibed Sub s Allowed: subs OK [facility] Cartia XT Not Available Not Available Not Available cholecalc iferol (vitamin D3) 25 mcg (1,000 unit) capsule 03/23 completed Medicati on ID: 723069 D uration Value: 30 Brand Name: cholecal [...] 20 mg tablet active Medicati on ID: 083069 B rand Name: aripipra zole Sen d [...] 100 mg capsule active Medicati on ID: 046643 B rand Name: nitrofur antoin monohyd/ m-cryst Send Method: E-Prescr ibed Sub s Allowed: subs OK Medic ationGen ericName : nitrofur antoin monohyd/ m-cryst Not Available Not Available Not Available duloxetin e 30 mg capsule,d elayed release active Medicati on ID: 235356 B rand Name: duloxeti ne Send Method: E-Prescr ibed Sub s Allowed: subs OK Medic ationGen ericName : duloxeti ne Not Available Not Available Not Available duloxetin e 60 mg capsule,d elayed release TAKE 1 CAPSULE BY MOUTH TWICE A DAY active Not Available Not Available No t Available sodium chloride 03/23 completed Medicati on ID: 494789 B rand Name: sodium chloride Send Method: E-Prescr ibed Sub s Allowed: subs OK [facility] : sodium chloride Not Available Not Available Not Available sodium chloride 1,000 mg soluble tablet TAKE 1 TABLET BY MOUTH THREE TIMES A DAY active Not Available Not Available No t Available oxycodone 10 mg tablet 08/11 completed Medicati on ID: 05259 Du ration Value: 28 Brand Name: oxycodon e Send Method: E-Prescr ibed Sub s Allowed: subs OK Speci al Instruct ion: TK 1 T PO TID Medi cationGe nericNam e: oxycodon e Not Available Not Available Not Available desvenlaf axine succinate ER 100 mg tablet,ex tended release 24 hr 03/23 completed Medicati on ID: 283348 B rand Name: desvenla faxine succinat e [...] mcg tablet 03/23 completed Medicati on ID: 825031 B rand Name: Gisselle- Benedicto Send Method: [...] Address Organization Details Last Updated DateTime 01/08/2025 90103.01 g 23 kg/m2 160.02 cm Corinna Howard [place] - [facility] 01/08/2025 13:23:38 Social History None recorded. Functional Status None recorded. Mental Status None recorded. Family History Nothing Reported. Medical History No medical history recorded. Gynecological HistoryNo gynecological history recorded. Obstetrics History GPAL:G 0 P 0 0 0 0 Past Encounters Encounter ID Performer Location Encounter Start Date Encounter Closed Date Diagnosis/Indication Diagnosis SNOMED-CT Code Diagnosis ICD10 Code Diagnosis IMO Codes Diagnosis Note [id number] [address] [facility] [address] [place] [address] 01/08/2025 13:04:16 01/08/2025 14:52:42 Abnormal sensation 552302241 R44.8 67604904 Migraine 73366646 G43.80 9 6497765 Allergic rhinitis 288981 04 J30.89 9641483 Health Concerns Section Related Observation LastModified by Organization Detai ls LastModified Time None Recorded Concern Status LastModified by Organization Details LastModified Time None Recorded Payers Encounter Date Sequence Insurance Name Policy Number Policy Barba Covered Member ID Barba Member ID Guarantor Name 01/08/2025 1 [facility] - DOS ON OR AFTER 2022 - DETENTION OPTIONS (MEDICARE REPLACEMENT/ADV ANTAGE - HMO) Rhona Gandara [id number] Rhona Gandara Notes Date Note Type Note Provider Name and Address Organization Details Recorded Time 01/08/2025 text/html ROS as noted in the HPI 70 year old female, with a history of chronic migraine, presents for evaluation of chronic sinusitis. Patient was recently seen at [facility] on 01/05/25 for head trauma following a [...] and purulent nasal discharge. RICKY MARX MD [address] [place] [address], [phone], [facility] - [facility] 01/10/2025 20:37:19 OBGyn Episode No OBEpisode recorded.
--- OUTSIDE RECORDS SUMMARY | 2025-04-01 17:50 | XMS_ITS | Data Portability ---
Author Organization [place] - [facility] Address [address] [place] [address] Care Team Providers Care Log Chipper Operator Name Role Phone [facility] Primary Care Provider [facility] OTHER Assessment Encounter Date Assessment [...] after care of this patient according to [facility]'s infection prevention protocols. In order to obtain [...] ovarian cyst(s) completed Alivia Sorensen NP [address] [place], [address], [facility] 01/07/2021 15:59:36 open reduction of fracture of femur completed Alivia Sorensen NP [address] [place] [address], [address], [facility] 01/07/2021 15:59:43 closed reduction of fracture of hip completed Alivia Sorensen NP [address] [place], [address], [facility] 01/07/2021 15:59:51 Imaging Results None recorded. Procedure Notes None recorded. Medical Equipment None Reported. Allergies Allergen ID Allergen Name Allergen Category Reaction Reaction Severity Criticality Documentation Date Start Date Code Code System Note Provider Name and Address Organization Details Recorded Time 966909 Product containin g penicilli n (product) medicatio n Not available Not available Not available 01/07/2021 34018 8001 SNOMED Alivia Sorensen NP [address] [place], [address], [place] - [facility] 15:53:47 655899 Ceclor medicatio n Not available Not available Not available 01/07/202195608 5 RxNorm Alivia Sorensen NP [address] [facility], [place], [address], [place] [facility] 15:53:53 225654 Substance with sulfonami de structure and antibacte rial mechanism of action (substanc e) medicatio n Not available Not available Not available 01/07/2021 69501 8003 SNOMED Alivia Sorensen, SENIOR LOGISTICS MANAGER [address] [place] [address], [place], [address], [place] [facility] 15:54:00 Medications [...] /min 98.9 [degF] 124/76 mm[Hg] Not Available [facility] 15:55:18 Social History Question Answer Notes LastModified by Organizat ion Details LastModified Time Tobacco Smoking Status Current Every Day Smoker Alivia Sorensen, LIDIA [address] [place], [address], [place] - [facility] 01/07/2021 15:57:59 Do You [...] Pulmonary Embolism Y Stroke N Hypertension Y Depression Y COPD Y Asthma N Kidney Disease N Gynecological HistoryNo gynecological history recorded. Obstetrics History GPAL:G 0 P 0 0 0 0 Past Encounters Encounter ID Performer Location Encounter Start Date Encounter Closed Date Diagnosis/Indication Diagnosis SNOMED-CT Code Diagnosis ICD10 Code Diagnosis IMO Codes Diagnosis Note [id number] Alivia Sorensen NP [facility] [address] [place] [address] 01/07/2021 15:51:31 01/12/2021 17:24:04 Suspected COVID-19 348642122 Z03.89 Dyspnea 205391600 R06.00 Oxygen sat uration below reference range 219574459 R79.81 Health Concerns Section Related Observation LastModified by Organization Detai ls LastModified Time None Recorded Concern Status LastModified by Organization Details LastModified Time None Recorded Advance Directives Directive N: Payers Insurance Date Sequence Insurance Name Policy Number Policy Barba Covered Member ID Barba Member ID Guarantor Name 01/12/2021 1 [facility] - DOS PRIOR TO 2022 - DUAL ELIGIBLE (MEDICARE REPLACEMENT/ADV ANTAGE - HMO) Rhona Gandara [id number] Rhona Gandara 01/06/2021 1 *SELF PAY* Rhona Gandara [id number] Rhona Gandara Notes Date Note Type Note [...] PE, OA Alivia Sorensen NP [address], [place], [address], [place] [facility] 01/07/2021 16:40:23 OBGyn Episode No OBEpisode recorded.
--- OUTSIDE RECORDS SUMMARY | 2025-04-01 17:50 | XMS_ITS | Continuity of Care Document ---
Author Organization [employer] [facility], [facility] Address [address] [place] [address] Care Team Providers Care Catalog Librarian Name Role Phone HIM [facility] [employer] Primary Care Provider Assessment Encounter Date Assessment Date Assessment LastModified by Organization Details LastModified Time 03/06/2025 03/06/2025 I have reviewed and agree with the assessment and plan as documented by the handbag operator. I provided real-time medical direction for this encounter and was immediately available to provide additional phone-based assistance as needed. History as noted in EMR and by handbag operator. I would add / emphasize: Patient seen [...] difficulties obtaining access to the property by handbag operator 911 was activated and forced entry into patient's residence after which patient was noted to be alert oriented and able to provide informed refusal of transport which was advised by handbag operator and by community health EMS. Patient noted to be otherwise ambulatory [...] , fingers tick, blood 025 03/06/20 25 [facility], [address] 5 17:49:15 Referral None recorde d. Procedures [...] Name and Address Organization Details Recorded Time 50822 Ceclor medicatio n Not available Not available Not available 04/28/202435107 5 RxNorm Not Available [facility] - production 15:29:00 19381 sulfameth oxazole medicatio n Not available Not available Not available 04/28/2024 50417 RxNorm Not Available [facility] - production 09:05:30 60282 Substance with sulfonami de structure and antibacte rial mechanism of action (substanc e) medicatio n Not available Not available Not available 02/24/2025 28917 8003 SNOMED Not Available [facility] - production 09:05:30 21584 succinylc holine Not available anaphylax is dyspnea Not available Not available high 02/24/20252012 26388 RxNorm Per patie nt, respi rator y depre ssion /SOB after extub ation after recei ving this med for sedat ion durin g a surge ry when she was 20 Not Available [employer] - prod 5 15:44:39 08220 cefaclor medicatio n hives other Not available Not available Not available 02/24/20252012 2176 RxNorm Not Available [employer] - prod 5 15:45:09 64274 succinylc holine chloride medicatio n dyspnea other Not available Not available high 02/24/20252023 3565 RxNorm Per patie nt, respi rator y depre ssion /SOB after extub ation after recei ving this med for sedat ion chaz arguello a surge ry when she was 20 Not Available [employer] - [employer] - prod 5 15:45:09 37184 sulfadiaz ine medicatio n Not available Not available Not available 03/01/2025 03387 RxNorm Not Available [employer] - [employer] - prod 17:18:00 22090 penicilli n V potassium medicatio n Not available Not available Not available 03/01/202525804 5 RxNorm Not Available [employer] - [employer] - prod 17:20:41 56593 Vaccine product containin g only Clostridi um tetani antigen (medicina l product) medicatio n Not available Not available Not available 03/10/2025 34923 2003 SNOMED [facility] Available [facility] 15:50:10 28872 penicilli n V Not available Not available Not available Not available 03/24/20252020 7984 RxNorm Not Available [employer] - [employer] - prod 5 10:38:27 7025 Product containin g penicilli n (product) medicatio n Not available Not available Not available 02/11/2024 93535 8001 SNOMED Not Available [facility] 4 03:34:22 7026 Bactrim medicatio n Not available Not available Not available 02/11/2024 63978 9 RxNorm Not Available [facility] 5 09:05:30 Medications Name [...] Details Last Updated DateTime 5 147.32 cm 36942.0 8 g 96 /min 96 % 16 [...] ICD10 Code Diagnosis IMO Codes Diagnosis Note [id number] Mary Cosme MD [facility] [address] [address] 02/24/2025 11:21:17 02/24/2025 13:01:47 Common cold 27061225 J00 27771 [id number] Ilia Wilkins MD [address] [address] 03/01/2025 14:36:25 03/01/2025 17:54:10 Bilateral acute conjunctivitis 8548229808 H10.33 76358728 [id number] Brayan Bates MD [facility] [address] [address] 03/06/2025 12:44:15 03/08/2025 20:59:28 General examination of patient 433058514 Z00.00 283496 Health Concerns Section Related Observation LastModified by Organization Detai ls LastModified Time None Recorded Concern Status LastModified by Organization Details LastModified Time None Recorded Payers Encounter Date Sequence Insurance Name Policy Number Policy Barba Covered Member ID Barba Member ID Guarantor Name 03/06/2025 1 [facility] - DOS ON OR AFTER 2022 - DUAL ELIGIBLE - ALF OPTIONS AND ONE CARE (MEDICARE REPLACEMENT/ADV ANTAGE - HMO) Rhona Gandara [id number] Rhona Gandara Notes Date Note Type Note [...] signs of when to seek emergency care. Dry Box Operator Organization Information for Volodymyr Danielle Liban Emerson Legal Name: [facility] Address: [address] [place] [address], [place] [address], Library Clerk: London Gudino MD RAMY No.: [id number] Dry Box Operator POC Test Results from Volodymyr Danielle Liban BAILEY Blood Glucose Measurement (14:06:25) Blood Glucose: 104mg/dL ...................... ...................... ...................... ...................... ...................... ...................... ......... Dry Box Operator Note From Volodymyr Danielle: 70-year-old female, [...] be able to fall asleep fairly quickly. [place] is easily to verbal. Denies any narcotic [...] was. Pictures taken and sent to Dr. Btaes. Patient able to walk to bathroom on her own with no cane and did not fall asleep on toilet. Patient states her BUSINESS OFFICE SPECIALIST was here this morning and her will be back at five and she absolutely does not want to go to the hospital. Patient going to take a nap and redress her wound herself on her foot. Patient again declined, offered to go get [facility] at the [facility] room. Forced entry of doors [...] ...................... ...................... ...................... ...................... ...................... ...................... ......... [facility] Consulted: Brayan Bates .Trina.................... ...................... ...................... ...................... ...................... ...................... ......... Disposition: Fulfilled ...................... ...................... ...................... ...................... ...................... ...................... ......... Dry Box Operator Note From Volodymyr Danielle:This has been updated by the handbag operator, Volodymyr Danielle, at (03/06/2025 14:28:50 ET) 70-year-old [...] asleep on toilet. Patient states her BUSINESS OFFICE SPECIALIST was here this morning and her will be back at five and she absolutely does not want to go to the hospital. Patient going to take a nap and redress her wound herself on her foot. Patient again declined, offered to go get checked out at the [facility] room. Forced entry of doors [...] us for a visit Brayan Bates MD [address] [place] [address],[address], [place], [address], [facility] 03/07/2025 13:45:13 OBGyn Episode No OBEpisode recorded.
--- OUTSIDE RECORDS SUMMARY | 2025-04-01 17:50 | XMS_ITS | Continuity of Care Document ---
Author Organization [facility] Address [address] [place] [address] Care Team Providers Care Road Crossing Guard Name Role Phone HIM [facility] OTHER [facility] Primary Care Provider Assessment Encounter Date Assessment Date Assessment LastModified by Organization Details LastModified Time 02/24/2025 02/24/2025 I provided real -time medical direction via phone for this encounter and was available for additional phone-based assistance as needed. I have reviewed and agree with the Assessment and Plan as documented by the Meter Changes Records Clerk. Patient given the opportunity to ask questions. Our service contacted for an assessment of: Viral URI symptoms As per above, patient with approximately several days of viral URI symptoms. Denies fever or chills. Denies chest pain, shortness of breath, dyspnea on exertion. Positive nasal congestion and dry cough. Positive sick contacts. Per senior policy associate on the scene, vital signs are stable and patient is afebrile. No wheezing heard on exam. COVID and Flu are both negative. No increased work of breathing and no distress. Impression: Common cold and viral URI Plan: Continue with [id number] medications to control symptoms. Red flags discussed [...] respiratory specimen 2024 025 [facility], [address] [place] [address], [phone] 5 12:29:40 rapid flu (A+B) 2024 025 [facility], [address] [place] [address], [id number] 5 12:29:41 Referral None recorded. Procedures None [...] Name and Address Organization Details Recorded Time 05985 Ceclor medicatio n Not available Not available Not available 04/28/202431514 5 RxNorm Not Available [facility] - production 15:29:00 25181 sulfameth oxazole medicatio n Not available Not available Not available 04/28/2024 00602 [facility]30 68851 Substance with sulfonami de structure and antibacte rial mechanism of action (substanc e) medicatio n Not available Not available Not available 02/24/2025 92257 8003 SNOMED Not Available [facility] 09:05:30 77511 succinylc holine Not available anaphylax is dyspnea Not available Not available high 02/24/20252012 17992 RxNorm Per patie nt, respi rator y depre ssion /SOB after extub ation after recei ving this med for sedat ion anisain g a surge ry when she was 20 Not Available [facility] - prod 15:44:39 97978 cefaclor medicatio n hives other Not available Not available Not available 02/24/20252012 2176 RxNorm Not Available [facility] - External Data Service - prod 5 15:45:09 25584 succinylc holine chloride medicatio n dyspnea other Not available Not available [facility] 02/24/20252023 3565 RxNorm Per patie nt, respi rator y depre ssion /SOB after extub ation after recei ving this med for sedat ion chaz g a surge ry when she was 20 Not Available [facility] - External Data Service - prod 5 15:45:09 02960 sulfadiaz ine medicatio n Not available Not available Not available 03/01/2025 87997 RxNorm Not Available [facility] - External Data [employer] - prod 5 17:18:00 00216 penicilli n V potassium medicatio n Not available Not available Not available 03/01/202518028 5 RxNorm Not Available [facility] - External Data [employer] - prod 17:20:41 92752 Vaccine product containin g only Clostridi um tetani antigen (medicina l product) medicatio n Not available Not available Not available 03/10/2025 90133 2003 SNOMED Not Available [facility] 5 15:50:10 05979 penicilli n V Not available Not available Not available Not available 03/24/20252020 7984 RxNorm Not Available [facility] - External Data Service - prod 5 10:38:27 7025 Product containin g penicilli n (product) medicatio n Not available Not available Not available 02/11/2024 34104 8001 SNOMED Not Available [facility] 4 03:34:22 7026 Bactrim medicatio n Not available Not available Not available 02/11/2024 60336 9 RxNorm Not Available [facility] 5 09:05:30 Medications Name [...] ICD10 Code Diagnosis IMO Codes Diagnosis Note [id number] Ondina Velazquez MD [address] [address] 02/02/2025 16:01:19 02/03/2025 12:13:10 Bacterial conjunctivitis 613768135 H10.9 44162 w/ blephariti sAdvised to throw out any [...] he verbalized understand ing to the medic [id number] Mary Cosme MD [address] [address] 02/24/2025 11:21:17 02/24/2025 13:01:47 Common cold [id number] J00 32377 Health Concerns Section Related Observation LastModified by Organization Detai ls LastModified Time None Recorded Concern Status LastModified by Organization Details LastModified Time None Recorded Payers Encounter Date Sequence Insurance Name Policy Number Policy Barba Covered Member ID Barba Member ID Guarantor Name 02/24/2025 1 [facility] - DOS ON OR AFTER 2022 - DUAL ELIGIBLE - [employer]CI OPTIONS AND ONE CARE (MEDICARE REPLACEMENT/ADV ANTAGE - HMO) Rhona Gandara [id number] Rhona Gandara Notes Date Note Type Note [...] signs of when to seek emergency care. Meter Changes Records Clerk Organization Information for [employer] Legal Name: [email or web address]. Address: [address] [place] [address], Quality Control Assistant: Garrett SANDOVAL No.: [id number] Meter Changes Records Clerk POC Test Results from [facility] - ALS Rapid influenza antigen (11:02:37) Flu: - Rapid COVID antigen (11:02:38) COVID: - ...................... ...................... ...................... ...................... ...................... ...................... ......... Meter Changes Records Clerk Note From EliuYang saavedra: Dispatched to the [...] taken and results uploaded to Pts portal. [facility] consulted. Pt advised to call her PCP for out Pt X-ray or go to an urgent care for one. Red flags discussed. ALL times are approx. [facility] Lab Orders: rapid SARS CoV 2 Ag, QL IA, respiratory specimen: Performed rapid flu (A+B): Performed ...................... ...................... ...................... ...................... ...................... ...................... ......... [facility] Consulted: Mary Cosme ...................... ...................... ...................... ...................... ...................... ...................... ......... Disposition: Fulfilled Mary Cosme MD [address] [facility],[address], [place], [address], [facility] 02/24/2025 12:15:03 OBGyn Episode No OBEpisode recorded.
--- OUTSIDE RECORDS SUMMARY | 2025-04-01 17:50 | XMS_ITS | Encounter Summary ---
Author Organization [facility] Address [address] [place] [address] Phone Care Team Providers Care Bracelet Maker Novelty Name Role Phone Sole Hendricks MD Unavailable [phone] Sanjay Carl NP Primary Care Provider [phone] Encounter Details Date Type Department Care Team (Late st Contact Info) Description 05/27/[address] [facility] Periop [address] [place] [address] Social History Tobacco Use Types Packs/Day Years Used Date Smoking Tobacco: Every Day Cigarettes Smokeless Tobacco: Never Alcohol Use Standard Drinks/Week Comments Yes 0 (1 standard drink = 0.6 oz pur e alcohol) Education Answer Date Recorded Are you interested in more education? Not on naa e 12/11/2022 Are you concerned about learning? [...] on filedocumented in this encounter Care Teams Bracelet Maker Novelty Relationship Specialty Start Date End Date Sanjay Carl, [employer] [address] [facility] [place] [address] PCP - General Nurse Practitioner 12/19/22 Sole Hendricks MD [facility] [place] [address] Dermatology 12/12/22 documented as of this encounter Additional Source Comments The information contained in this document represents components of the legal health record. It is not the complete legal health record.[facility]
--- OUTSIDE RECORDS SUMMARY | 2025-04-01 17:50 | XMS_ITS | Clinical Summary ---
Author Organization [facility] Address [address] [place] [address] Phone Care Team Providers Care Resident Inspector Name Role Phone Sole Hendricks MD Unavailable [phone] Sanjay Carl PEER TUTOR Primary Care Provider [phone] Allergies Active Allergy Reactions Criticality Noted Date [...] EST) TSH 5.56 0.50 - 5.70 uIU/mL [facility] Blood 05/21/2023 6:26 AM EST 05/21/2023 7:00 AM EST us Ernie Gonsales MD LAB BLOOD BKR ORDERABLES Gela l Result [facility] [address] [place] [address] from Last 3 Months or Most Recently Relevant to Health Maintenance Insurance [address] MEDICARE REPLACEMENT [address] [place] [address] CARE MEDICARE REPLACEMENT CARE MEDICARE REPLACEMENT CARE MEDICARE REPLACEMENT Advance Directives For more information, please contact: [phone] (9AM - 5PM [place], Saturday-Saturday) * Full Code (Latest Code Status on File) Date Activated Date Inactivated Comments 05/16/2023 6:17 PM Question Answer Comments Code Status Confirmed With: Patient Care Teams Resident Inspector Relationship Specialty Start Date End Date Sanjay Carl NP [address] [place] [address] PCP - General Nurse Practitioner 12/19/22 Sole Hendricks MD [address] [facility] [address] [place] [address] Dermatology 12/12/22 Additional Source Comments The information contained in this document represents components of the legal health record. It is not the complete legal health record.[facility]
--- OUTSIDE RECORDS SUMMARY | 2025-04-01 17:50 | XMS_ITS | Continuity of Care Document ---
Author Organization [email or web address] Address [address] [place] [address] Care Team Providers Care Head Batcher Name Role Phone HIM [facility] OTHER [facility] Primary Care Provider Assessment Encounter Date Assessment Date Assessment LastModified by Organization Details LastModified Time 02/02/2025 02/02/2025 I provided real -time medical direction via phone for this encounter, and was available for additional phone based assistance as needed. I have reviewed and agree with the Assessment and Plan as documented by the Supervisor Grower. We discussed the diagnostic uncertainty of home [...] to call 911- verbalized understanding of instruction [email or web address] Not available 02/02/2025 16:12:15 Plan of Treatment Reminders Order Date Submit Date Provider Last Modified By Organization Details Last Modified Time Details Appointments None recorded. Lab None recorded. Referral None recorded. Procedures None recorded. Surgeries None recorded. Imaging None recorded. Medication Orders neomycin 3.5 mg/g-polym yxin B 10,000 unit/g-dex ameth 0.1 % eye oint 2024 025 [facility][id number], [address] [place], [address], 16:07:02 Patient TargetsNo targets recorded. Patient InstructionsNo instructions recorded. Reason for Referral None Reported. Medical Equipment None Reported. Allergies Allergen ID Allergen Name Allergen Category Reaction Reaction Severity Criticality Documentation Date Start Date Code Code System Note Provider Name and Address Organization Details Recorded Time [address] [facility] Not [facility] Not available Not available 04/28/202415083 5 RxNorm Not Available [facility] - production 5 15:29:00 53768 sulfameth oxazole medicatio n Not available Not available Not available 04/28/2024 23892 RxNorm Not Available [facility] - production 5 09:05:30 94558 Substance with sulfonami de structure and antibacte rial mechanism of action (substanc e) medicatio n Not available Not available Not available 02/24/2025 04244 8003 SNOMED Not Available [facility] - production 5 09:05:30 66719 succinylc holine Not available anaphylax is dyspnea Not available Not available high 02/24/20252012 52454 RxNorm Per patie nt, respi rator y depre ssion /SOB after extub ation after recei ving this med for sedat ion durin g a surge ry when she was 20 Not Available [facility] - External Data Service - prod 5 15:44:39 14401 cefaclor medicatio n hives other Not available Not available Not available 02/24/20252012 2176 RxNorm Not Available [facility] - External Data Service - prod 5 15:45:09 42185 succinylc holine chloride medicatio n dyspnea other Not available Not available high 02/24/20252023 3565 RxNorm Per patie nt, respi rator y depre ssion /SOB after extub ation after recei ving this med for sedat ion durin g a surge ry when she was 20 Not Available [facility] - External Data Service - prod 5 15:45:09 17382 sulfadiaz ine medicatio n Not available Not available Not available 03/01/2025 37566 RxNorm Not Available [facility] - External Data Service - prod 5 17:18:00 12593 penicilli n V potassium medicatio n Not available Not available Not available 03/01/202531063 5 RxNorm Not Available [facility] - prod 5 17:20:41 Vaccine product containin g only Clostridi um tetani antigen (medicina l product) medicatio n Not available Not available Not available 03/10/2025 77648 2003 SNOMED Not Available [facility] - production 5 15:50:10 52109 penicilli n V Not available Not available Not available Not available 03/24/20252020 7984 RxNorm Not Available [facility] - External Data Service - prod 5 10:38:27 7025 Product containin g penicilli n (product) medicatio n Not available Not available Not available 02/11/2024 09210 8001 SNOMED Not Available [facility] - production 4 03:34:22 7026 Bactrim medicatio n Not available Not available Not available 02/11/2024 80000 9 RxNorm Not Available [facility] 5 09:05:30 Medications Name [...] % 14 /min 152.4 cm 98 [degF] 31661.8 g 154/84 mm[Hg] Not Available [facility] - [...] ICD10 Code Diagnosis IMO Codes Diagnosis Note [id number] Ondina Velazquez MD [facility] [address] [place] [address] 02/02/2025 16:01:19 02/03/2025 12:13:10 Bacterial conjunctivitis [id number] H10.9 03568 w/ blephariti sAdvised to throw out any [...] Barba Member ID Guarantor Name 02/02/2025 1 [facility] - DOS ON OR AFTER 2022 - DUAL ELIGIBLE - DETENTION OPTIONS AND ONE CARE (MEDICARE REPLACEMENT/ADV ANTAGE - HMO) Rhona Gandara [id number] Rhona Gandara Notes Date Note Type Note [...] No PRNs or eye drops utilized. Takes ELV16zg daily. Denies kidney issues. I provided information on the mobile health provider response time and advised the patient and/or caregiver to monitor reported signs and symptoms. I discussed the warning signs of when to seek emergency care. ...................... ...................... ...................... ...................... ...................... ...................... ......... Supervisor Grower Note From Bacilio Gonzalez: Patient alert and [...] with no edema noted good skin [place]. [facility] will prescribe medication to patient s local pharmacy. Red flags patient education discussed. Supportive care discussed, including warm compresses, handwashing and others. Patient demonstrates understanding of care and plan. ...................... ...................... ...................... ...................... ...................... ...................... ......... [facility] Consulted: Ondina Velazquez ...................... ...................... ...................... ...................... ...................... ...................... ......... Disposition: Fulfilled SEGMD: As above. Patient denies any allergic rhinitis, rash, difficulty swallowing /sore throat, headache, nausea vomiting or diarrhea. She denies use of any new cosmetic products/eye make-up. Ondina Velazquez MD [address] [place] [address],[address] [facility], [place], [address], [email or web address] 02/03/2025 01:17:35 OBGyn Episode No OBEpisode recorded.
--- OUTSIDE RECORDS SUMMARY | 2025-04-01 17:50 | XMS_ITS | Encounter Summary ---
Author Organization [facility] Address [address] [place] [address] Phone Care Team Providers Care Stamp Redemption Clerk Name Role Phone Sole Hendricks MD Unavailable [phone] Sanjay Carl NP Primary Care Provider [phone] Encounter Details Date Type Department Care Team (Late st Contact Info) Description 05/20/2023 Procedure Pass [facility] Periop [address] [place] [address] Social History Tobacco Use Types Packs/Day Years [...] on filedocumented in this encounter Care Teams Stamp Redemption Clerk Relationship Specialty Start Date End Date Sanjay Carl, WOOL SPOTTER [address] [place] [address] PCP - General Nurse Practitioner 12/19/22 Sole Hendricks MD [facility] [facility] [place] [address] Dermatology 12/12/22 documented as of this encounter Additional Source Comments The information contained in this document represents components of the legal health record. It is not the complete legal health record.[facility]
--- OUTSIDE RECORDS SUMMARY | 2025-04-01 17:50 | XMS_ITS | Data Portability ---
Author Organization ID - [facility], Allergy Address [address] [address] Care Team Providers Care Ultrasound Technologist Name Role Phone NICOLÁS LESA Primary Care Provider Assessment Encounter Date Assessment Date Assessment LastModified by Organization Details LastModified Time 01/08/2025 01/08/2025 70 year old female, with a history of chronic migraine, presents for evaluation of chronic sinusitis. CT head without contrast performed 01/05/25 at [facility] showed no parenchymal hemorrhage, midline shift, or [...] contr ast No observ ation record ed. [email or web address] Not Available 12/15 11:03:54 Result Notes None recorded. Problems Name Problem SNOMED Code Status Onset Date Resolution Date Notes Provider Name and Address Organization Details Recorded Time Difficult y speaking Active 2014 Symptoms involving head and neck: Hoarsenes s; Note: Date Diagnosed : 08/30/2014 2:05 PM (784.42) Not Available [facility] 02:32:49 Harmful pattern of use of alcohol 45700563 Active 2018 Alcohol use disorder, mild; Note: Date Diagnosed : 08/11/2018 4:23 PM (F10.10) Not Available [facility] 4 02:32:48 Impacted cerumen of bilateral ears 48490285478 65889 Active 2018 Impacted cerumen, bilateral ; Note: Date Diagnosed : 08/11/2018 4:23 PM (H61.23) Not Available [facility] 4 02:32:50 Dysphonia 51711194 Active 2018 Hoarsenes s; Note: Date Diagnosed : 08/11/2018 4:23 PM (R49.0) Not Available [facility] 4 02:32:41 Tobacco dependenc e caused by cigarette s 59691479579 660778 Active 2018 Nicotine dependenc e, cigarette s, uncomplic ated; Note: Date Diagnosed : 08/11/2018 4:23 PM (F17.210) Not Available [facility] 4 02:32:39 Edema of larynx 53096953 Active 2018 Edema of larynx; Note: Date Diagnosed : 08/11/2018 4:23 PM (J38.4) Not Available [facility] 4 02:32:51 Chronic rhinitis 83774765 Active 2018 Rhinitis, chronic; Note: Date Diagnosed : 08/30/2014 2:05 PM (472.0) ; Start Date : 5 Chronic rhinitis; Note: Date Diagnosed : 08/11/2018 4:23 PM (J31.0) Not Available [facility] 4 02:32:46 Dysphagia 94099262 Active 2018 Dysphagia , unspecifi ed; Note: Date Diagnosed : 08/11/2018 4:23 PM (R13.10) Not Available [facility] 4 02:32:46 Bilateral tinnitus 17359476311 02 Active 2021 Tinnitus, bilateral ; Note: Date Diagnosed : 03/23/2022 10:21 AM (H93.13) Not Available [facility] 4 02:32:44 Migraine without aura, not refractor y 990945061 Active 2021 Migraine without aura, not intractab le, without status migrainos us; Note: Date Diagnosed : 03/23/2022 12:11 PM (G43.009) Not Available [facility] 4 02:32:42 Dizziness and giddiness 106055412 Active 2021 Dizziness and giddiness ; Note: Date Diagnosed : 03/23/2022 10:21 AM (R42) Not Available [facility] 4 02:32:40 Sensorine ural hearing loss 51021647 Active 2021 Sensorine ural hearing loss, unilatera l, left ear, with unrestric shane hearing on the contralat eral side; Note: Date Diagnosed : 03/23/2022 10:21 AM (H90.42) Not Available [facility] 4 02:33:00 Sensorine ural hearing loss of bilateral ears 780589321 Active 2022 Sensorine ural hearing loss, bilateral ; Note: Date Diagnosed : 12/27/2022 11:59 AM (H90.3) Not Available [facility] 4 02:32:43 Abnormal sensation 620706744 Active 2024 MILTON AVALOS [address], [place], [address] , [facility] 5 17:09:11 Migraine 69873526 Active 2024 MILTON AVALOS [address],[facility] [address], [place], [address] , [facility] 5 16:05:47 Allergic rhinitis 46970771 [facility] 2024 MILTON AVALOS [address], [place], [address] , [facility] 5 16:06:08 Problem Notes None recorded. Medical Equipment None Reported. Allergies Allergen ID Allergen Name Allergen Category Reaction Reaction Severity Criticality Documentation Date Start Date Code Code System Note Provider Name and Address Organization Details Recorded Time 02188 Ceclor medicatio n other Not available Not available 08/27/202306165 5 RxNorm React ion: unkno wn, unspe cifie d;; Not Available [facility] 4 00:56:50 47649 penicilli n V potassium medicatio n other Not available Not available 08/27/202371636 5 RxNorm React ion: unkno wn, unspe cifie d;; Not Available [facility] 4 00:56:55 60275 Substance with sulfonami de structure and antibacte rial mechanism of action (substanc e) medicatio n other Not available Not available 08/27/2023 89167 8003 SNOMED React ion: unkno wn, unspe cifie d;; Not Available [facility] 4 00:56:56 Medications Name Sig Start Date [...] 325 mg tablet active Medicati on ID: 867586 B rand Name: acetamin ophen Se nd Method: E-Prescr ibed Sub s Allowed: subs OK Medic ationGen ericName : acetamin ophen Not Available Not Available Not Available prednison e 10 mg tablet PLEASE SEE ATTACHED FOR DETAILED DIRECTIO NS active Not Available Not Available No t Available nitrofura ntoin macrocrys inocencio 50 mg capsule 01/25 completed Medicati on ID: [id number] D uration Value: 30 Brand Name: nitrofur antoin macrocry stal Sen d Method: E-Prescr ibed Sub s Allowed: subs OK Speci al Instruct ion: TK 1 C PO QD Medic ationGen ericName : nitrofur antoin macrocry stal Not Available Not Available Not Available oxybutyni n chloride ER 15 mg tablet,ex tended release 24 hr 01/25 completed Medicati on ID: 647192 D uration Value: 30 Brand Name: oxybutyn [...] %) eye drops active Medicati on ID: 555827 B rand Name: ketotife n fumarate Send [...] 15 mg tablet active Medicati on ID: 076392 B rand Name: meloxica m Send Method: [...] elayed release 01/25 completed Medicati on ID: 06319 Du ration Value: 30 Brand Name: Nexium [...] mg tablet 03/23 completed Medicati on ID: 656961 B rand Name: tramadol Send Method: E-Prescr [...] in a packet active Medicati on ID: 367607 B rand Name: Cholesty ramine Light Se nd Method: E-Prescr ibed Sub s Allowed: subs OK [facility] Cholesty ramine Light [...] mg tablet 03/23 completed Medicati on ID: 47071 Du ration Value: 30 Brand Name: citalopr [...] mg tablet 03/23 completed Medicati on ID: 918598 B rand Name: baclofen Send Method: E-Prescr ibed Sub s Allowed: subs OK [facility] : baclofen Not Available [...] iron) tablet 03/23 completed Medicati on ID: 431548 D uration Value: 30 Brand Name: ferrous sulfate Send Method: E-Prescr ibed Sub s Allowed: subs OK Medic ationGen ericName : ferrous sulfate Not Available Not Available Not Available ropinirol e 0.5 mg tablet active Medicati on ID: 595252 B rand Name: ropiniro le Send Method: [...] mg tablet 03/23 completed Medicati on ID: 38542 Du ration Value: 20 Brand Name: benztrop [...] mg tablet 03/23 completed Medicati on ID: 335215 D uration Value: 15 Brand Name: alprazol am Send Method: E-Prescr ibed Sub s Allowed: subs OK Medic ationGen ericName : alprazol am Not Available Not Available Not Available ibuprofen 600 mg tablet PLEASE SEE ATTACHED FOR DETAILED DIRECTIO NS active Not Available Not Available No t Available polyethyl nilton glycol 3350 17 gram/dose oral powder 03/23 completed Medicati on ID: 677774 D uration Value: 30 Brand Name: polyethy [...] mg tablet 01/25 completed Medicati [place] ID: 11992 Du ration Value: 30 Brand Name: oxybutyn [...] mg tablet 03/23 completed Medicati on ID: 908188 B rand Name: amitript yline Se nd [...] xtended release 03/23 completed Medicati on ID: 916167 D uration Value: 90 Brand Name: Cartia XT Send Method: E-Prescr ibed Sub s Allowed: subs OK Medic ationGen ericName : Cartia XT Not Available Not Available Not Available cholecalc iferol (vitamin D3) 25 mcg (1,000 unit) capsule 03/23 completed Medicati on ID: 889022 D uration Value: 30 Brand Name: cholecal [...] 20 mg tablet active Medicati on ID: 570574 B rand Name: aripipra zole Sen d [...] 100 mg capsule active Medicati on ID: 032335 B rand Name: nitrofur antoin monohyd/ m-cryst Send Method: E-Prescr ibed Sub s Allowed: subs OK Medic ationGen ericName : nitrofur antoin monohyd/ m-cryst Not Available Not Available Not Available duloxetin e 30 mg capsule,d elayed release active Medicati on ID: 092810 B rand Name: duloxeti ne Send Method: E-Prescr ibed Sub s Allowed: subs OK Medic ationGen ericName : duloxeti ne Not Available Not Available Not Available duloxetin e 60 mg capsule,d elayed release TAKE 1 CAPSULE BY MOUTH TWICE A DAY active Not Available Not Available No t Available sodium chloride 03/23 completed Medicati on ID: 004998 B rand Name: sodium chloride Send Method: E-Prescr ibed Sub s Allowed: subs OK Medic ationGen ericName : sodium chloride Not Available Not Available Not Available sodium chloride 1,000 mg soluble tablet TAKE 1 TABLET BY MOUTH THREE TIMES A DAY active Not Available Not Available No t Available oxycodone 10 mg tablet 08/11 completed Medicati on ID: 66044 Du ration Value: 28 Brand Name: oxycodon e Send Method: E-Prescr ibed Sub s Allowed: subs OK Speci al Instruct ion: TK 1 T PO TID Medi cationGe nericNam e: oxycodon e Not Available Not Available Not Available desvenlaf axine succinate ER 100 mg tablet,ex tended release 24 hr 03/23 completed Medicati on ID: [id number] B rand Name: desvenla faxine succinat e [...] mcg tablet 03/23 completed Medicati on ID: [id number] B rand Name: Eugenio Diane Send Method: [...] Address Organization Details Last Updated DateTime 01/08/2025 55792.01 g 23 kg/m2 160.02 cm Corinna Howard MA - [facility] 01/08/2025 13:23:38 Social History None recorded. Functional Status None recorded. Mental Status None recorded. Family History Nothing Reported. Medical History No medical history recorded. Gynecological HistoryNo gynecological history recorded. Obstetrics History GPAL:G 0 P 0 0 0 0 Past Encounters Encounter ID Performer Location Encounter Start Date Encounter Closed Date Diagnosis/Indication Diagnosis SNOMED-CT Code Diagnosis ICD10 Code Diagnosis IMO Codes Diagnosis Note [id number] [facility] [address] [address] 01/08/2025 13:04:16 01/08/2025 14:52:42 Abnormal sensation 545529808 R44.8 62920148 Migraine 85929739 G43.80 9 0190913 Allergic rhinitis 628945 04 J30.89 7120748 Health Concerns Section Related Observation LastModified by Organization Detai ls LastModified Time None Recorded Concern Status LastModified by Organization Details LastModified Time None Recorded Advance Directives Directive None Recorded Payers Insurance Date Sequence Insurance Name Policy Number Policy Barba Covered Member ID Barba Member ID Guarantor Name 12/28/2024 1 [facility] - DOS ON OR AFTER 2022 - ONE CARE (MEDICARE REPLACEMENT/ADV ANTAGE - HMO) Rhona Gandara [id number] Rhona Gandara 01/08/2025 1 [facility] - DOS ON OR AFTER 2022 - [employer] (MEDICARE REPLACEMENT/ADV ANTAGE - HMO) Rhona Gandara [id number] Rhona Gandara 12/28/2024 2 [employer] - [facility]/ADV ANTAGE - HMO) Rhona Gandara [id number] Rhona Gandara 12/28/2024 1 [facility] - DOS ON OR AFTER 2022 - MEDICARE [place]AGE [place]MEDIC[place] REPLACEMENT/ADV ANTAGE - PPO) Rhona Gandara [id number] Rhona Gandara Notes Date Note Type Note Provider Name and Address Organization Details Recorded Time 01/08/2025 text/html ROS as noted in the HPI 70 year old female, with a history of chronic migraine, presents for evaluation of chronic sinusitis. Patient was recently seen at [facility] on 01/05/25 for head trauma following [...] and purulent nasal discharge. RICKY MARX MD [address] [place] [address], [phone], [facility] - [facility] 01/10/2025 20:37:19 OBGyn Episode No OBEpisode recorded.
--- OUTSIDE RECORDS SUMMARY | 2025-04-01 17:51 | XMS_ITS | Data Portability ---
Author Organization [facility], [facility] [employer] [facility] Address [address] [place] [address] Care Team Providers Care Loading Manager Name Role Phone HIM CCA OTHER [facility] Primary Care Provider Assessment Encounter Date Assessment Date Assessment LastModified by Organization Details LastModified Time 02/02/2025 02/02/2025 I provided real -time medical direction via phone for this encounter, and was available for additional phone based assistance as needed. I have reviewed and agree with the Assessment and Plan as documented by the Supervisor Uranium Processing. We discussed the diagnostic uncertainty of home [...] to call 911- verbalized understanding of instruction [email or web address] Not available 02/02/2025 16:12:15 02/24/2025 02/24/2025 I provided real -time medical direction via phone for this encounter and was available for additional phone-based assistance as needed. I have reviewed and agree with the Assessment and Plan as documented by the Supervisor Uranium Processing. Patient given the opportunity to ask questions. Our service contacted for an assessment of: Viral URI symptoms As per above, patient with approximately several days of viral URI symptoms. Denies fever or chills. Denies chest pain, shortness of breath, dyspnea on exertion. Positive nasal congestion and dry cough. Positive sick contacts. Per extraction operator on the scene, vital signs are stable and patient is afebrile. No wheezing heard on exam. COVID and Flu are both negative. No increased work of breathing and no distress. Impression: Common cold and viral URI Plan: Continue with [id number] medications to control symptoms. Red flags discussed [...] in the field was performed by my extraction operator colleague, as noted above, I provided [...] assessment and plan as documented by the extraction operator. I provided real-time medical direction for this encounter and was immediately available to provide additional phone-based assistance as needed. History as noted in EMR and by extraction operator. I would add / emphasize: Patient [...] difficulties obtaining access to the property by extraction operator 911 was activated and forced entry into patient's residence after which patient was noted to be alert oriented and able to provide informed refusal of transport which was advised by extraction operator and by fire EMS. Patient noted to [...] or acute angle glaucoma. Patient transferred to [facility] in [place] for ER eval. Signed out at 7:17pm. I provided real -time medical direction via phone for this encounter, and was available for additional phone based assistance as needed. I have reviewed and agree with the Assessment and Plan as documented by the Supervisor Uranium Processing. We discussed the diagnostic uncertainty of home [...] recorded. Lab glucose, fingerstick , blood 2024 [facility], [address] [place] [address], [id number] 17:49:15 rapid SARS CoV 2 Ag, QL IA, respiratory specimen 2024 [facility], [address] [place] [address], [id number] 12:29:40 rapid flu (A+B) 2024 [facility], [address] [place] [address], [id number] 12:29:41 Referral None recorded. Procedures None recorded. Surgeries None recorded. Imaging None recorded. Medication Orders erythromyci n 5 mg/gram (0.5 %) eye ointment 2024 [facility]/Pharmacy #[id number], [address] [place], [address], 14:41:26 neomycin 3.5 mg/g-polymy cami B 10,000 unit/g-dexa meth 0.1 % eye oint 2024 [facility]/Pharmacy #[id number], [address] [place], [address], 16:07:02 Patient TargetsNo targets recorded. Patient InstructionsNo [...] Name and Address Organization Details Recorded Time 99799 Ceclor medicatio n Not available Not available Not available 04/28/202454196 5 RxNorm Not Available [facility] - production 5 15:29:00 42379 sulfameth oxazole medicatio n Not available Not available Not available 04/28/2024 68947 RxNorm Not Available [facility] 09:05:30 97811 Substance with sulfonami de structure and antibacte rial mechanism of action (substanc e) medicatio n Not available Not available Not available 02/24/2025 80905 8003 SNOMED Not Available [facility] 5 09:05:30 27929 succinylc holine Not available anaphylax is dyspnea Not available Not available high 02/24/20252012 34383 RxNorm Per patie nt, respi rator y depre ssion /SOB after extub ation after recei ving this med for sedat ion durin g a surge ry when she was 20 Not Available [employer] - prod 5 15:44:39 03032 cefaclor medicatio n hives other Not available Not available Not available 02/24/20252012 2176 RxNorm Not Available [employer] - prod 5 15:45:09 60138 succinylc holine chloride medicatio n dyspnea other Not available Not available high 02/24/20252023 3565 RxNorm Per patie nt, respi rator y depre ssion /SOB after extub ation after recei ving this med for sedat ion durin g a surge ry when she was 20 Not Available [employer] - prod 5 15:45:09 90412 sulfadiaz ine medicatio n Not available Not available Not available 03/01/2025 35382 RxNorm Not Available [employer] - [employer] - prod 5 17:18:00 59022 penicilli n V potassium medicatio n Not available Not available Not available 03/01/202550742 5 RxNorm Not Available [employer] - prod 5 17:20:41 16197 Vaccine product containin g only Clostridi um tetani antigen (medicina l product) medicatio n Not available Not available Not available 03/10/2025 25969 2003 SNOMED Not Available [facility] - production 5 15:50:10 39936 penicilli n V Not available Not available Not available Not available 03/24/20252020 7984 RxNorm Not Available [employer] - prod 5 10:38:27 7025 Product containin g penicilli n (product) medicatio n Not available Not available Not available 02/11/2024 27056 8001 SNOMED Not Available [facility] 4 03:34:22 7026 Bactrim medicatio n Not available Not available Not available 02/11/2024 75250 9 RxNorm Not Available [facility] 5 09:05:30 Medications Name [...] % 14 /min 152.4 cm 98 [degF] 47498.8 g 154/84 mm[Hg] Not Available [facility] - production 5 16:01:26 Date Recorded Heart rate Body temperature Respiratory rate Oxygen saturation Systolic And Diastolic Provider Name and Address Organization Details Last Updated DateTime 5 78 /min 98.9 [degF] 18 /min 96 % 140/82 mm[Hg] Not Available [employer] - production 11:21:26 Date Recorded Respiratory rate Oxygen saturation Body temperature Body weight Heart rate Body height Systolic And Diastolic Provider Name and Address Organization Details Last Updated DateTime 18 /min 99 % 97.1 [degF] 23048.8 16 g 72 /min 152.4 cm 137/77 mm[Hg] Not Available [employer] - production 14:36:32 Date Recorded Body height Body weight Heart rate Oxygen saturation Respiratory rate Body temperature Systolic And Diastolic Provider Name and Address Organization Details Last Updated DateTime 147.32 cm 03641.0 8 g 96 /min 96 % 16 /min 96.5 [degF] 148/96 mm[Hg] Not Available [employer] 14:06:19 Date Recorded Body temperature Body weight Heart rate Oxygen saturation Respiratory rate Body height Systolic And Diastolic Provider Name and Address Organization Details Last Updated DateTime 99 [degF] 28250.8 56 g 98 /min 96 % 16 /min 152.4 cm 120/85 mm[Hg] Not Available [employer] 18:08:20 Social History None recorded. Functional Status [...] [id number] Mary Cosme MD Main - [facility] [address] [place] [phone] 04/26/2022 17:35:03 05/01/2022 11:23:41 Acute conjunctivitis 48003412 H10.30 [id number] Samra Whitley MD Main - [facility] [address] [place] [phone] 09/09/2022 17:58:41 09/10/2022 19:02:49 Nausea 308247706 R11.0 Evaluation in the field was performed by my extraction operator colleague, as noted above, I provided real-time direction and supervisio n for this visit. 67yo F hx GERD on PPI p/w pre-dinner nausea x 3 days w/o abd pain, vomiting, diarrhea, chest pain/angin al equivalent s. DDx broad but no red flag sx to indicate urgent need for imaging/tx . Attempted to get LFTs however extraction operator unable to obtain, not urgent given no [...] shortness of breath, cough, chest pain, fever. [id number] Radha Lopez MD Main - [facility] [address] [place] [phone] 10/30/2022 16:50:24 08/14/2024 12:51:56 Fall 3371611 W19.XXXA 67 yo s/p fall at home last night with headstrike and subsequent headache that appears to be worsening despite NSAID use. No confusion, lethargy or focal neurologic deficits. Not on anticoagul ation (per patient recollecti on). Discussed at length with extraction operator and patient, agreed she should be evaluated for unwitnesse d head trauma and worsening BRAVO (raising c/f subdural). Called ambulance. Discussed with extraction operator and patient, who agreed with plan. Warning signs/symp toms reviewed. [id number] Mukesh Stubbs MD Main - [facility] [address] [place] [phone] 04/28/2024 16:50:05 04/28/2024 22:27:41 Headache 22797872 R51.9 As noted, we were called to see this patient regarding concerns of headache. Evaluation in the field was performed by my extraction operator colleague, as noted above, I provided real-time direction and supervisio n for this visit. The evaluation revealed an alert and oriented woman with no deficits per the extraction operator. However, she reports new headache associated with neurologic al symptoms. Impression :headache, tremors, visual changes Plan:ED evaluation Dispositio n: ORWe discussed the situation and I recommende d referral to the emergency department . This was based on new onset headache with associated neurologic al symptoms. [id number] Michelle [facility]ims MD [facility] - [address] [phone] 06/01/2024 17:05:04 06/02/2024 08:46:02 Upper respiratory infection 23766085 J06.9 [id number] Michelle Mims MD [facility] - [place] [id number] [phone] 07/08/2024 15:48:42 07/08/2024 19:44:39 Diarrhea 94524501 R19.7 [id number] Ilia Wilkins MD [facility] - [place] [address] 0 07/30/2024 12:57:13 07/30/2024 14:45:28 Acute frontal sinusitis 61211185 J01.10 [id number] Michelle Mims MD [facility] - [place] [phone] 08/17/2024 17:23:15 08/17/2024 21:04:11 Fatigue 21129364 R53.83 [id number] Anxiety 48258084 F41.9 [id number] [facility] Medical [address] [phone] 10/29/2024 19:15:54 10/30/2024 16:24:07 Nausea and vomiting 70413706 R11.2 [id number] Walking disability 82261 8008 R26.2 [id number] [id number] [facility] Medical [address] [phone] 12/19/2024 10:01:05 12/21/2024 15:55:55 Blood pressure taking 28694472 Z01.30 224694 As noted, we were called to see this patient regarding concerns of abnormal blood pressure. Evaluation in the field was performed by my extraction operator colleague, as noted above, I provided [...] changes to consciousn ess, chest pain, dyspnea. [id number] Ondina Velazquez MD [facility] ED Medical [address] [phone] 02/02/2025 16:01:19 02/03/2025 12:13:10 Bacterial conjunctivitis 454742123 H10.9 07150 w/ blephariti sAdvised to throw out any [...] he verbalized understand ing to the medic [id number] Mary Cosme MD [place] [phone] 02/24/2025 11:21:17 02/24/2025 13:01:47 Common cold 30336415 J00 54183 [id number] Ilia Wilkins MD [place] [phone] 03/01/2025 14:36:25 03/01/2025 17:54:10 Bilateral acute conjunctivitis 5377529858 H10.33 17433932 81945 Brayan Bates MD [place] [address] 0 03/06/2025 12:44:15 03/08/2025 20:59:28 General examination of patient 592448143 Z00.00 403248 [id number] TAWANNA BRUNO MD [place] [phone] 03/10/2025 18:00:35 03/10/2025 22:14:34 Blurring of visual image 002459534 H53.8 67879 Health Concerns Section Related Observation LastModified by Organization Detai ls LastModified Time None Recorded Concern Status LastModified by Organization Details LastModified Time None Recorded Advance Directives Directive None Recorded Payers Insurance Date Sequence Insurance Name Policy Number Policy Barba Covered Member ID Barba Member ID Guarantor Name 08/21/2023 1 [facility] - DOS PRIOR TO 2022 - DUAL ELIGIBLE (MEDICARE REPLACEMENT/ADV ANTAGE - HMO) Rhona Gandara [id number] Rhona Gandara 03/10/2025 1 [facility] - DOS ON OR AFTER 2022 - DUAL ELIGIBLE - USP OPTIONS AND ONE CARE (MEDICARE REPLACEMENT/ADV ANTAGE - HMO) Rhona Gandara [id number] Rhona Gandara Notes Date Note Type Note [...] No PRNs or eye drops utilized. Takes [id number] daily. Denies kidney issues. I provided information on the mobile health provider response time and advised the patient and/or caregiver to monitor reported signs and symptoms. I discussed the warning signs of when to seek emergency care. ...................... ...................... ...................... ...................... ...................... ...................... ......... Supervisor [employer]ran[employer] Note From Bacilio Gonzalez: Patient alert and [...] with no edema noted good skin TURGOR. [facility] will prescribe medication to patient s local pharmacy. Red flags patient education discussed. Supportive care discussed, including warm compresses, handwashing and others. Patient demonstrates understanding of care and plan. ...................... ...................... ...................... ...................... ...................... ...................... ......... [facility] Consulted: Ondina Velazquez ...................... ...................... ...................... ...................... ...................... ...................... ......... Disposition: Fulfilled SEGMD: As above. Patient denies any allergic rhinitis, rash, difficulty swallowing /sore throat, headache, nausea vomiting or diarrhea. She denies use of any new cosmetic products/eye make-up. Ondina Velazquez MD [address] [facility],[address], [place], [address], [facility] 02/03/2025 01:17:35 02/24/2025 text/html CRC Nurse Triage [...] signs of when to seek emergency care. Supervisor Uranium Processing Organization Information for [employer] Business Legal Name: [employer]. Address: [address] [place] [address], Career Technical Counselor: Garrett Nevarez MD CLIA No.: [id number] Supervisor Uranium Processing POC Test Results from [employer] Rapid influenza antigen (11:02:37) Flu: - Rapid COVID antigen (11:02:38) COVID: - ...................... ...................... ...................... ...................... ...................... ...................... ......... Supervisor Uranium [employer] Note From Yang Nowak: Dispatched to the [...] taken and results uploaded to Pts portal. [facility] consulted. Pt advised to call her PCP for out Pt X-ray or go to an urgent care for one. Red flags discussed. ALL times are approx. [facility] Lab Orders: rapid SARS CoV 2 Ag, QL IA, respiratory specimen: Performed rapid flu (A+B): Performed ...................... ...................... ...................... ...................... ...................... ...................... ......... [facility] Consulted: Mary Cosme ...................... ...................... ...................... ...................... ...................... ...................... ......... Disposition: Fulfilled Mary Cosme MD [address] [facility],[address], [place], [address], [facility] 02/24/2025 12:15:03 03/01/2025 text/html ROS as noted in the [facility] [...] ...................... ...................... ...................... ...................... ...................... ......... Supervisor [employer]ran[employer] Note From Volodymyr Danielle: 70 year-old female [...] ...................... ...................... ...................... ...................... ...................... ...................... ......... [facility] Consulted: Ilia Wilkins ...................... ...................... ...................... ...................... ...................... ...................... ......... Disposition: Fulfilled ...................... ...................... ...................... ...................... ...................... ...................... ......... Supervisor [employer]ranium [employer] Note From Volodymyr Danielle:This has been updated by the extraction operator, Volodymyr Danielle, at (03/01/2025 15:17:12) 70 [...] which will be delivered tomorrow by her [facility]. Patient s [facility] is currently delivering her doxycycline sometime today so advised her to call [facility] and just see if they can [...] at it again. Ilia Wilkins MD [address] [facility],[address], [place], [address], [place] [facility] 03/01/2025 15:22:44 03/06/2025 text/html CRC Nurse Triage [...] signs of when to seek emergency care. Supervisor Uranium Processing Organization Information for Volodymyr Danielle Legal Name: [facility] Address: [address] [place] [address], [place] [address], Career Technical Counselor: London Gudino MD CLIA No.: [id number] Supervisor Uranium Processing POC Test Results from Volodymyr Danielle Blood Glucose Measurement (14:06:25) Blood Glucose: 104mg/dL ...................... ...................... ...................... ...................... ...................... ...................... ......... Supervisor Uranium Processing Note From Volodymyr Danielle: 70-year-old female, complaining [...] be able to fall asleep fairly quickly. [place] is easily to verbal. Denies any narcotic [...] fall asleep on toilet. Patient states her DETECTIVE LIEUTENANT was here this morning and her will [...] ...................... ...................... ...................... ...................... ...................... ...................... ......... [facility] Consulted: Brayan Bates ...................... ...................... ...................... ...................... ...................... ...................... ......... Disposition: Fulfilled ...................... ...................... ...................... ...................... ...................... ...................... ......... Supervisor [employer] Note From Volodymyr Danielle:This has been updated by the extraction operator, Volodymyr Danielle, at (03/06/2025 14:28:50 ET) [...] fall asleep on toilet. Patient states her DETECTIVE LIEUTENANT was here this morning and her will [...] for a visit Brayan Bates MD [address] [facility],[address], [place], [address], [facility] 03/07/2025 13:45:13 03/10/2025 text/html ROS as noted [...] ...................... ...................... ...................... ...................... ...................... ......... Supervisor Uranium Processing Note From Janak Cuello: [facility] makes pt contact a 70 YO F cc of conjunctivitis that has not cleared after antibiotics. [facility] obtains vital signs. PT explains she [...] Penicillin, ceclor, sulfa, tetanus vaccine and toxoid. [facility] contacts [facility] and explains above mentioned. [facility] advises pt needs to be evaluated in person at an emergency department due to vision changes. Initially pt does not want to go but [facility] stresses the importance of being evaluated. PT agrees. [facility] contacts [address] [facility]. [facility] is to transport pt to [facility]. PT is currently c-collared due to a preexisting injury. PT also has been diagnosed with a foot infection and UTI which she is supposed to start cipro today but hasnt picked up the prescription yet. This information is passed along to EMS for the receiving RN. [facility] clear. ...................... ...................... ...................... ...................... ...................... ...................... ......... [facility] Consulted: Tawanna Bruno ...................... ...................... ...................... ...................... ...................... ...................... ......... Disposition: Fulfilled TAWANNA BRUNO MD [address] [facility],[address] [facility], [place], [phone], ZAK ADALBERTO BLAND 03/10/2025 19:38:00 OBGyn Episode No OBEpisode recorded.
== END 2025-04-05 13:23 | disposition home or self-care (01) ==
LOC: HO.HSMS 13:37
PROVIDERS: PCP Nurse Practitioner Family; Visit Provider Nurse Practitioner Family
DX: R40.4 Transient alteration of awareness (principal); S06.0X0D Concussion without loss of consciousness, subsequent encounter; G43.711 Chronic migraine without aura, intractable, with status migrainosus; G43.109 Migraine with aura, not intractable, without status migrainosus; G43.911 Migraine, unspecified, intractable, with status migrainosus; G44.209 Tension-type headache, unspecified, not intractable
CPT/HCPCS: 99214